=== PATIENT | female | born 1990 | race Caucasian/White ===

== ENCOUNTER 2021-05-11 14:01 | Outpatient (REF) | payer OTHER, SELFPAY ==
--- NOTE | ~2021-05-11 | XR_ITS ---
EXAMINATION: XR CHEST CLINICAL INFORMATION: Cough COMPARISON: None TECHNIQUE: 2 views of the chest were obtained. FINDINGS: No significant abnormality is noted involving the heart, lungs, mediastinum, bony thorax or soft tissues. XR/XR chest 2V IMPRESSION: Unremarkable chest examination.
[2021-05-11 18:34] LABS: Influenza A PCR NEGATIVE (Negative); Influenza B PCR NEGATIVE (Negative); Resp Syncy Virus RNA Qual PCR NEGATIVE (Negative); SARS COV2 PCR INHOUSE NEGATIVE (Negative)
== END 2021-05-11 14:02 | disposition home or self-care (01) ==
LOC: HO.HMGCX 14:01
PROVIDERS: PCP Internal Medicine; Visit Provider Nurse Practitioner Family
DX: R05 Cough (principal)
CPT/HCPCS: 0241U; 36415; 71046

== ENCOUNTER 2021-05-11 14:07 | Outpatient (REF) | payer OTHER, SELFPAY | END 2021-05-11 14:08 | disposition home or self-care (01) | LOC: HO.LAB 14:07 | PROVIDERS: Visit Provider Nurse Practitioner Family | DX: Z13.89 Encounter for screening for other disorder (principal) ==

== ENCOUNTER 2021-11-01 11:26 | Outpatient (REF) | payer OTHER, SELFPAY | END 2021-11-01 11:27 | disposition home or self-care (01) | LOC: HO.LNP 11:26 | PROVIDERS: Visit Provider Physician Assistant | DX: U07.1 COVID-19 (principal) | CPT/HCPCS: U0003; U0005 ==

== ENCOUNTER 2022-05-12 02:37 | Emergency (ER) | payer OTHER, SELFPAY ==
[2022-05-12 02:41] VITALS: BP 138/68; PULSE 108; O2SAT 99
[2022-05-12 02:50] VITALS: BP 116/74; PULSE 91; RESP 16; TEMP 36.7; O2SAT 98; BMI 28.3
--- NOTE | 2022-05-12 03:08 | ED.OVERDOSE ---
HPI - Overdose General Chief Complaint: ETOH/Substance Use Stated Complaint: OVERDOSE Time Seen by Provider: 05/12/22 03:07 Source: patient Mode of arrival: EMS Limitations: no limitations History of Present Illness HPI Narrative: patient use heroin cocaine found unresponsive by her friends medicated with 8 mg of nasal Narcan with positive effect patient used 3 bags of heroin and unknown amount of cocaine also patient had few drinks patient feel nauseated does not want any help Related Data Home Medications Medication Instructions Recorded Confirmed sennosides 8.6 mg tablet (Natural 8.6 mg PO DAILY 11/01/21 Senna Laxative) Allergies Allergy/AdvReac Type Severity Reaction Status Date / Time No Known Allergies Allergy Verified 05/12/22 02:49 Review of Systems Review of Systems: Yes all other systems are reviewed and are negative [facility] Social History Social History Alcohol intake: current Alcohol intake frequency: 0-2 drinks per day Patient Tobacco Use Status: Current everyday Tobacco user Substance Use Type: Heroin Advance Directives: No Physical Exam Vital Signs: Vital Signs: Last Vital Signs Temp 98.1 F 05/12/22 02:50 Pulse 70 05/12/22 06:31 Resp 18 05/12/22 06:31 BP 113/70 05/12/22 06:31 Pulse Ox 95 05/12/22 06:31 O2 Del Method 05/12/22 06:31 BMI result Body Mass Index 28.3 Appearance: Alert. Oriented X3. No acute distress. etoh+ Eyes: PERRLA, No Nystagmus ENT: Pharynx normal. Oral Mucosa moist Neck: Normal inspection. Neck supple. CVS: Normal heart rate and rhythm. Pulses normal. Respiratory: No respiratory distress. Equal air entry bilateral, no wheezing/rales/rhonchi Abdomen: Soft and nontender. Bowel sounds are present, no mass palpable, no CVA tenderness Skin: Skin warm and dry. Normal skin color. Normal skin turgor. Extremities: No lower extremity edema. No calf tenderness Neuro: Oriented X 3. No motor deficit. No sensory deficit.No cerebellar signs , cranial nerves II-XII intact MDM - Overdose MDM Narrative Medical decision making narrative: patient asymptomatic at the time of discharge refused any help says she does not use drugs very often Discharge Plan Discharge Clinical Impression: Opiate abuse, episodic, Cocaine abuse, Alcohol abuse Patient Disposition: Home, Self-Care Instructions: Polysubstance Abuse (ED) Additional Instructions: follow-up with detox as advised Prescriptions: No Action sennosides [Natural Senna Laxative] 8.6 mg tablet 8.6 mg PO DAILY Interventions: ED Discharge Assessment Last Done: 05/12/22 06:40
[2022-05-12] MEDS: Ondansetron ODT 4 MG TAB.RAPDIS TRANSLINGU (03:18)
[2022-05-12 04:10] VITALS: BP 117/71; PULSE 102; RESP 20; O2SAT 97
[2022-05-12 06:31] VITALS: BP 113/70; PULSE 70; RESP 18; O2SAT 95
== END 2022-05-12 08:08 | disposition home or self-care (01) ==
PROVIDERS: Emergency Provider Internal Medicine
DX: F11.10 Opioid abuse, uncomplicated (principal); F14.10 Cocaine abuse, uncomplicated; F10.10 Alcohol abuse, uncomplicated; Y90.9 Presence of alcohol in blood, level not specified; R40.4 Transient alteration of awareness; R11.0 Nausea; F17.200 Nicotine dependence, unspecified, uncomplicated
CPT/HCPCS: 99283; 99284

== ENCOUNTER 2022-12-26 15:42 | Emergency (ER) | payer OTHER, SELFPAY ==
--- NOTE | ~2022-12-26 | CT_ITS ---
EXAMINATION: CT ABDOMEN AND PELVIS WITH CONTRAST CLINICAL INFORMATION: Flank pain COMPARISON: None TECHNIQUE: Multidetector volumetric images were obtained from the superior aspect of the liver through the pubic symphysis following administration 85 mL of Omnipaque 350 intravenous contrast. Sagittal and coronal reformatted images were obtained on the technologist's workstation. Oral contrast: No This CT examination was performed using dose optimization techniques as appropriate, variously including the following: *Automated exposure control *Adjustment of mA and/or kV according to patient size (this includes techniques or standardized protocols for targeted exams where dose is matched to indication/reason for exam; i.e. extremities or head) *Use of iterative reconstruction technique DLP: 622 mGy-cm FINDINGS: LUNG BASES: The visualized lung bases are unremarkable. LIVER, GALLBLADDER, AND BILIARY TREE: The liver is normal in size, shape, and attenuation. No focal hepatic lesion or biliary ductal dilatation is present. The gallbladder is unremarkable with no evidence of radiopaque gallstones, gallbladder wall thickening, or obvious pericholecystic inflammatory changes. PANCREAS: Unremarkable. SPLEEN: Unremarkable. ADRENAL GLANDS: Unremarkable. KIDNEYS AND URETERS: 8 mm hypodense lesion posterior cortex right kidney compatible simple cyst. No follow-up necessary. No stones no hydronephrosis. No hydroureter. BLADDER: Unremarkable. GASTROINTESTINAL TRACT: The small and large bowel are unremarkable. The appendix is unremarkable. Stomach normal ABDOMINAL WALL: No significant hernia is appreciated. LYMPH NODES: Normal. VASCULAR: Unremarkable. PELVIC VISCERA: Unremarkable. OSSEOUS STRUCTURES: Bilateral pars defects at L5. Grade 1 anterolisthesis of L5 on S1. CT/CT abdomen pelvis w IV con IMPRESSION: No urinary tract calculi. No acute abnormality. Bilateral pars defects L5. Simple cyst right kidney without clinical significance. No follow-up necessary.
[2022-12-26 17:09] VITALS: BP 127/87; PULSE 79; RESP 18; TEMP 37.1; O2SAT 99; BMI 29.7
--- NOTE | 2022-12-26 17:10 | ED_ITS ---
HPI - Female Genitourinary General Chief complaint: Urogenital-Female Stated complaint: bladder infection Time Seen by Provider: 12/26/22 18:08 Related Data Home Medications Medication Instructions Recorded Confirmed sennosides 8.6 mg tablet (Natural 8.6 mg PO DAILY 11/01/21 12/26/22 Senna Laxative) Previous Rx's Medication Instructions Recorded doxycycline hyclate 100 mg capsule 100 mg PO BID 10 days #20 caps 12/26/22 metronidazole 500 mg tablet 500 mg PO BID 7 days #14 tabs 12/26/22 Allergies Allergy/AdvReac Type Severity Reaction Status Date / Time No Known Allergies Allergy Verified 12/26/22 17:15 [facility] Social History Social History Alcohol intake: current Alcohol intake frequency: 0-2 drinks per day Patient Tobacco Use Status: Current everyday Tobacco user Substance Use Type: Heroin Advance Directives: No Advance Directives Information Provided: No Physical Exam Vital Signs: Vital Signs: Last Vital Signs Temp 98.7 F 12/26/22 17:09 Pulse 79 12/26/22 17:09 Resp 18 12/26/22 17:09 BP 127/87 12/26/22 17:09 Pulse Ox 99 12/26/22 17:09 O2 Del Method 12/26/22 17:09 BMI result Body Mass Index 29.7 Course Course Course Narrative: RME - 32 yo female presents to the ER for evaluation of nausea, right sided back pain, pelvic pain and intermittent fevers for the last 2-3 weeks along with white vaginal discharge. No dysuria. Sent in from Urgent Care for concerns of pyelonpehritis. Recently treated with Macrobid for UTI in October, had resolution of symptoms but came back shortly after. Will get labs, UA, STI tests and start empiric treatment. Will need pelvic exam. Medications Administered Discontinued Medications Generic Name Dose Route Start Last Admin Trade Name Freq PRN Reason Stop Dose Admin Ceftriaxone Sodium 500 mg/ 0 mg 12/26/22 17:12 12/26/22 18:08 Lidocaine HCl 1 ml IM 12/26/22 17:13 500 kit ONCE ONE Administration Doxycycline Monohydrate 100 mg 12/26/22 17:12 12/26/22 18:08 Doxycycline Monohydrate 100 Mg Capsule PO 12/26/22 17:13 100 mg ONCE ONE Administration Iohexol 100 ml 12/26/22 19:26 12/26/22 19:26 Iohexol 350 Mg/Ml 100 Ml Infus..Btl IV 12/26/22 19:27 85 ml ONCE ONE Administration Metronidazole 2,000 mg 12/26/22 17:12 12/26/22 18:08 Metronidazole 500 Mg Tablet PO 12/26/22 17:13 2,000 mg ONCE ONE Administration Medical Decision Making Lab Data 12/26/22 17:49 12/26/22 17:49 Labs: Lab Results 12/26/22 12/26/22 12/26/22 Range/Units 17:49 17:49 17:49 WBC 7.7 (4.8-10.8) X10*3/uL RBC 3.99 L (4.20-5.50) X10*6/uL Hgb 13.0 (12.0-16.0) g/dl Hct 38.7 (37.0-47.0) % MCV 97.0 (80.0-98.0) fL MCH 32.6 (27.0-33.0) pg MCHC 33.6 (31.0-35.0) g/dl RDW 14.6 (11.0-16.0) % Plt Count 244 (160-400) X10*3/uL MPV 10.6 (9.4-12.3) fL Immature Gran % (Auto) 0.3 (0.0-0.4) % Neut % (Auto) 52.3 (45-73) % Lymph % (Auto) 37.6 (20-40) % [place] % (Auto) 5.8 (2-11) % Eos % (Auto) 2.8 (0-4) % Baso % (Auto) 1.2 (0-2) % Lymph # (Auto) 2.9 (1.2-4.9) X10*3/uL [place] # (Auto) 0.5 (0.1-1.2) X10*3/uL Eos # (Auto) 0.2 (0.0-0.4) X10*3/uL Baso # (Auto) 0.1 (0.0-0.2) X10*3/uL Abs Immat Gran (auto) 0.02 (0.00-0.03) X10*3/uL Absolute Neuts (auto) 4.1 (2.0-8.3) x10*3/uL Absolute Nucleated RBC 0.000 (0.0-0.012) X10*3/uL Nucleated RBC % (auto) 0.0 (0.0-0.2) /100WBC Sodium 137 (135-145) mmol/L Potassium 4.1 (3.3-5.1) mmol/L Chloride 106 (96-108) mmol/L Carbon Dioxide 22 (22-29) mmol/L Anion Gap 13 (12-20) BUN 18 H (9-16) mg/dL Creatinine 1.17 (0.5-1.4) mg/dL Estim Creat Clear Calc 66.8 Estimated GFR 53 Random Glucose 85 (60-115) mg/dL Calcium 9.5 (8.4-10.2) mg/dL Magnesium 1.9 (1.6-2.6) mg/dL Total Bilirubin 0.7 (0.0-1.0) mg/dL Direct Bilirubin 0.2 (0.0-0.5) mg/dL AST 29 (5-31) U/L ALT 35 H (0-31) U/L Alkaline Phosphatase 75 (39-117) U/L Total Protein 6.7 (6.5-8.0) g/dL Albumin 4.2 (3.5-5.0) g/dL Beta HCG, Quant < 2 mIU/mL Urine Color Yellow Urine Appearance Clear Urine pH 8.5 (5.0-9.0) Ur Specific [place] 1.010 (1.005-1.025) Urine Protein Negative (Neg-Trace) mg/dL Urine Glucose (UA) Negative (Negative) mg/dL Urine Ketones Negative (Negative) mg/dL Urine Blood Negative (Negative) Urine Nitrite Negative (Negative) Ur Leukocyte Esterase Small (1+) H (Negative) Urine RBC 0-2 (0-2) /HPF Urine WBC 6-10 H (0-5) /HPF Ur Squamous Epith Cells 6-10 (0-2) /HPF Urine Bacteria Trace (None Seen) Hyaline Casts 0-2 (0-2) /LPF Urine Test (NEGATIVE) Lesli species DNA (Negative) Chlam trachomat DNA PCR (Not Detect.) Gardnerella DNA Probe (Negative) N.gonorrhoeae DNA (PCR) (Not Detect.) Trichomonas DNA Probe (Negative) 12/26/22 12/26/22 12/26/22 Range/Units 17:49 19:08 19:08 WBC (4.8-10.8) X10*3/uL RBC (4.20-5.50) X10*6/uL Hgb (12.0-16.0) g/dl Hct (37.0-47.0) % MCV (80.0-98.0) fL MCH (27.0-33.0) pg MCHC (31.0-35.0) g/dl RDW (11.0-16.0) % Plt Count (160-400) X10*3/uL MPV (9.4-12.3) fL Immature Gran % (Auto) (0.0-0.4) % Neut % (Auto) (45-73) % Lymph % (Auto) (20-40) % [place] % (Auto) (2-11) % Eos % (Auto) (0-4) % Baso % (Auto) (0-2) % Lymph # (Auto) (1.2-4.9) X10*3/uL [place] # (Auto) (0.1-1.2) X10*3/uL Eos # (Auto) (0.0-0.4) X10*3/uL Baso # (Auto) (0.0-0.2) X10*3/uL Abs Immat Gran (auto) (0.00-0.03) X10*3/uL Absolute Neuts (auto) (2.0-8.3) x10*3/uL Absolute Nucleated RBC (0.0-0.012) X10*3/uL Nucleated RBC % (auto) (0.0-0.2) /100WBC Sodium (135-145) mmol/L Potassium (3.3-5.1) mmol/L Chloride (96-108) mmol/L Carbon Dioxide (22-29) mmol/L Anion Gap (12-20) BUN (9-16) mg/dL Creatinine (0.5-1.4) mg/dL Estim Creat Clear Calc Estimated GFR Random Glucose (60-115) mg/dL Calcium (8.4-10.2) mg/dL Magnesium (1.6-2.6) mg/dL Total Bilirubin (0.0-1.0) mg/dL Direct Bilirubin (0.0-0.5) mg/dL AST (5-31) U/L ALT (0-31) U/L Alkaline Phosphatase (39-117) U/L Total Protein (6.5-8.0) g/dL Albumin (3.5-5.0) g/dL Beta HCG, Quant mIU/mL Urine Color Urine Appearance Urine pH (5.0-9.0) Ur Specific [place] (1.005-1.025) Urine Protein (Neg-Trace) mg/dL Urine Glucose (UA) (Negative) mg/dL Urine Ketones (Negative) mg/dL Urine Blood (Negative) Urine Nitrite (Negative) Ur Leukocyte Esterase (Negative) Urine RBC (0-2) /HPF Urine WBC (0-5) /HPF Ur Squamous Epith Cells (0-2) /HPF Urine Bacteria (None Seen) Hyaline Casts (0-2) /LPF Urine Test NEGATIVE (NEGATIVE) Lesli species DNA Negative (Negative) Chlam trachomat DNA PCR NOT DETECTED (Not Detect.) Gardnerella DNA Probe Positive A (Negative) N.gonorrhoeae DNA (PCR) NOT DETECTED (Not Detect.) Trichomonas DNA Probe Negative (Negative) Discharge Plan Discharge Clinical Impression: Cystitis, Bacterial vaginosis, Screen for STD (sexually transmitted disease) Patient Disposition: Home, Self-Care Instructions: Bacterial Vaginosis (ED) Additional Instructions: Take your medications as prescribed. If you were prescribed antibiotics today, it is important that you take your medication to their entirety, do not skip any doses, do not finish them early. Follow-up with your primary care provider this week. Follow-up with OBGYN Return to the emergency department with new or worsening symptoms. Such as fevers, chills, chest pain, shortness of breath, nausea, vomiting, dizziness, headache, vision changes, lethargy In case of emergency call 911 CT/CT abdomen pelvis w IV con IMPRESSION: No urinary tract calculi. ? No acute abnormality. ? Bilateral pars defects L5. ? Simple cyst right kidney without clinical significance. No follow-up necessary. Prescriptions: New doxycycline hyclate 100 mg capsule 100 mg PO BID 10 Days Qty: 20 0RF metronidazole 500 mg tablet 500 mg PO BID 7 Days Qty: 14 0RF No Action sennosides [Natural Senna Laxative] 8.6 mg tablet 8.6 mg PO DAILY Referrals: Vivian Skinner MD [Primary Care Provider] - 2 days Simeon Duarte MD [Physician] - 2 days Stand Alone Forms: Work/School Release Interventions: ED Discharge Assessment Last Done: 12/26/22 21:08 Discharge Date/Time: 12/26/22 21:08
[2022-12-26 18:02] LABS: MANUAL DIFF FLAG NO
[2022-12-26 18:05] LABS: Appearance Urine Clear; Color Urine Yellow; Glucose Urine UA Negative (Negative); Leukocyte Esterase Urine Small (1+) (Negative); Nitrite Urine Negative (Negative); PH 8.5 (5.0-9.0); UMIC TRIGGER UACC YES; Urine Blood Negative (Negative); Urine Ketones Negative (Negative); Urine Protein Negative (Neg-Trace)
[2022-12-26 18:06] LABS: UPreg QC Valid YES; Urine Pregnancy NEGATIVE (NEGATIVE)
[2022-12-26] MEDS: Doxycycline Monohydrate 100 MG CAPSULE PO (18:08)
[2022-12-26] MEDS: metroNIDAZOLE 500 MG TABLET 2000 MG PO (18:08)
[2022-12-26] MEDS: cefTRIAXone sodium 500 MG, Lidocaine HCl 1 % MPF 1 ML IM (18:08)
[2022-12-26 18:10] LABS: Basophils Absolute Auto 0.1 X10*3/uL (0.0-0.2); Basophils Percent Auto 1.2 % (0-2); Eosinophils Absolute Auto 0.2 X10*3/uL (0.0-0.4); Eosinophils Percent Auto 2.8 % (0-4); Hematocrit 38.7 % (37.0-47.0); Imm Gran Abs Auto 0.02 X10*3/uL (0.00-0.03); Imm Gran Pct Auto 0.3 % (0.0-0.4); Lymphocytes Absolute Auto 2.9 X10*3/uL (1.2-4.9); Lymphocytes Percent Auto 37.6 % (20-40); Mean Corpuscular HGB Conc 33.6 g/dl (31.0-35.0); Mean Corpuscular Hemoglobin 32.6 pg (27.0-33.0); Mean Platelet Volume 10.6 fL (9.4-12.3); Monocytes Absolute Auto 0.5 X10*3/uL (0.1-1.2); Monocytes Percent Auto 5.8 % (2-11); Neutrophils Absolute Auto 4.1 x10*3/uL (2.0-8.3); Neutrophils Percent Auto 52.3 % (45-73); Platelet Count 244 X10*3/uL (160-400); Red Blood Count 3.99 X10*6/uL (4.20-5.50); Red Cell Distribution Width 14.6 % (11.0-16.0); White Blood Count 7.7 X10*3/uL (4.8-10.8)
[2022-12-26 18:14] LABS: Bacteria Urine Trace (None Seen); Hyaline Casts Urine 0-2 /LPF (0-2); RBC Urine 0-2 /HPF (0-2); UACC Culture Trigger YES
[2022-12-26 18:23] LABS: Alanine Aminotransferase 35 U/L (0-31); Albumin Level 4.2 g/dL (3.5-5.0); Alkaline Phosphatase 75 U/L (39-117); Anion Gap 13 (12-20); Aspartate Amino Transferase 29 U/L (5-31); Bilirubin Direct 0.2 mg/dL (0.0-0.5); Bilirubin Total 0.7 mg/dL (0.0-1.0); Blood Urea Nitrogen 18 mg/dL (9-16); Calcium 9.5 mg/dL (8.4-10.2); Carbon Dioxide 22 mmol/L (22-29); Chloride 106 mmol/L (96-108); Creatinine Clr Calc Pharmacy 66.8; Estimated Glomerular Filt Rate 53; Glucose Random 85 mg/dL (60-115); Magnesium 1.9 mg/dL (1.6-2.6); Potassium 4.1 mmol/L (3.3-5.1); Sodium 137 mmol/L (135-145); Total Protein 6.7 g/dL (6.5-8.0)
--- NOTE | 2022-12-26 18:44 | ED_ITS ---
HPI - Female Genitourinary General Chief complaint: Urogenital-Female Stated complaint: bladder infection Time Seen by Provider: 12/26/22 18:08 Source: patient Mode of arrival: ambulatory Limitations: no limitations History of Present Illness HPI Narrative: This is a 32-year-old female no significant medical history presenting to the emergency department from urgent care where they were concerned that she may hav e pyelonephritis. Patient tells me that she was recently treated for urinary tract infection with Macrobid at that time she was experiencing urinary frequency, urgency and dysuria. Patient also reports that she was recently diagnosed with chlamydia, she was treated only for chlamydia however not g onorrhea. She tells me she tested negative for gonorrhea she does not think that they tested her for any other STDs. She reports that she is having clear smelly vaginal discharge. This has been going on for a while. No vaginal bleeding. She reports bilateral flank pain. And tells me that she has had subjective fevers and chills for the past 2-3 weeks. She does not think she is . Related Data Home Medications Medication Instructions Recorded Confirmed sennosides 8.6 mg tablet (Natural 8.6 mg PO DAILY 11/01/21 12/26/22 Senna Laxative) Previous Rx's Medication Instructions Recorded doxycycline hyclate 100 mg capsule 100 mg PO BID 10 days #20 caps 12/26/22 metronidazole 500 mg tablet 500 mg PO BID 7 days #14 tabs 12/26/22 Allergies Allergy/AdvReac Type Severity Reaction Status Date / Time No Known Allergies Allergy Verified 12/26/22 17:15 Review of Systems Review of Systems: Constitutional : No Weight loss, + Fever, + Chills, + Fatigue, + Malaise ENT/Mouth : No sore throat, No Rhinorrhea Eyes: No Eye Pain, No Swelling, No Redness Cardiovascular : No Chest Pain, No SOB, No Dyspnea on Exertion, No Orthopnea, No Edema, No Palpitations Respiratory : No Cough, No Sputum, No Wheezing Gastrointestinal : No Nausea, No Vomiting, No Diarrhea, No Constipation, No abdominal Pain, No Hematochezia, No Melena Genitourinary : No Dysuria, No Urinary Frequency, No Hematuria, + vaginal dc Musculoskeletal : No joint pain, No Myalgias, No Joint Swelling, + flank pain Skin : No Skin Lesions, No rash Neuro : No Weakness, No Numbness, No Dizziness, No Headache Psych : No Anxiety/Panic, No Depression All other systems reviewed and are negative Yes all other systems are reviewed and are negative [facility] Past Medical History Attestation statement: The following information was validated with the patient. Source: old records reviewed and nursing notes reviewed Social History Social History Alcohol intake: current Alcohol intake frequency: 0-2 drinks per day Patient Tobacco Use Status: Current everyday Tobacco user Substance Use Type: Heroin Advance Directives: No Advance Directives Information Provided: No Physical Exam Vital Signs: Vital Signs: Last Vital Signs Temp 98.7 F 12/26/22 17:09 Pulse 79 12/26/22 17:09 Resp 18 12/26/22 17:09 BP 127/87 12/26/22 17:09 Pulse Ox 99 12/26/22 17:09 O2 Del Method 12/26/22 17:09 BMI result Body Mass Index 29.7 vss Appearance: Alert.? Oriented X3.? No acute distress.? Head: Normocephalic, atraumatic, no step-offs or deformities Eyes: Pupils equal, round and reactive to light.? CVS: Normal heart rate and rhythm.? Pulses normal.? Respiratory: No respiratory distress.? Breath sounds normal.? Abdomen: Soft and nontender.? Skin: Skin warm and dry.? Normal skin color.? Normal skin turgor.? Extremities: No lower extremity edema.? No calf ttp. 5/5 strength to bilateral upper and lower extremities Back: No midline tenderness, no C-spine tenderness, full range of motion, + CVA tenderness bilaterally Neuro: Oriented X 3.? No motor deficit.? No sensory deficit. CN 2-12 intact Sensitive exam: Deferred by patient Course Reevaluation(s) Reevaluation #1: CBC appears to be within normal limits. Chemistry with no acute electrolyte abnormalities requiring intervention. UA with small amount of leukocyte esterase and trace bacteria. Patient received treatment for STDs and tolerated it well. CT of the abdomen and pelvis pending. Time: 18:49 Reevaluation #2: CT of the abdomen and pelvis with no urinary tract calculi, no acute abnormality there is a pars defect of L5. Simple cyst of the right kidney. No signs of pyelonephritis. Patient feeling well. Patient will be discharged home on doxycycline and metronidazole to cover for BV, Trichomonas and chlamydia. BV still pending. Educated patient on diagnosis and treatment plan, answered all question, patient verbalizes understanding. At this time patient will be discharged home, advised to return with new or worsening symptoms. Educated on worrisome signs and symptoms and when to return. At this time I feel comfortable discharge home. Time: 21:03 Medications Administered Discontinued Medications Generic Name Dose Route Start Last Admin Trade Name Chrissy PRN Reason Stop Dose Admin Ceftriaxone Sodium 500 mg/ 0 mg 12/26/22 17:12 12/26/22 18:08 Lidocaine HCl 1 ml IM 12/26/22 17:13 500 kit ONCE ONE Administration Doxycycline Monohydrate 100 mg 12/26/22 17:12 12/26/22 18:08 Doxycycline Monohydrate 100 Mg Capsule PO 12/26/22 17:13 100 mg ONCE ONE Administration Iohexol 100 ml 12/26/22 19:26 12/26/22 19:26 Iohexol 350 Mg/Ml 100 Ml Infus..Btl IV 12/26/22 19:27 85 ml ONCE ONE Administration Metronidazole 2,000 mg 12/26/22 17:12 12/26/22 18:08 Metronidazole 500 Mg Tablet PO 12/26/22 17:13 2,000 mg ONCE ONE Administration Medical Decision Making Medical Decision Making [facility] Narrative: 1846 32-year-old female presents with vaginal discharge, and urinary frequency and d ysuria times 2-3 weeks. Recently diagnosed with UTI treated with Macrobid and was recently treated for chlamydia. Physical exam significant for bilateral CVA tenderness. No abdominal tenderness. Patient appears well, nontoxic. Vital signs are stable. Concerns for possible UTI versus cystitis. I do not suspect pyelonephritis patient appears well, nontoxic however will rule this out. Will rule out infection. Also rule out Trichomonas, BV, gonorrhea chlamydia. Patient agrees to prophylactic treatment for gonorrhea, chlamydia and trichomonas. 500mg IM ceftriaxone has been given here and scripts for doxycycline 100 mg po BID X 7 days and metronidazolehave been given to the patient. Educated on safe sex practices, full pannel STD testing and speaking to? partners on possible STD. Plan at this time basic labs, Trichomonas, gonorrhea, BV chlamydia testing, UA, . Will obtain CT of the abdomen and pelvis Differential Diagnosis Differential Diagnoses: The differential diagnosis associated with the presentation includes Concerns for possible UTI versus cystitis. I do not suspect pyelonephritis patient appears well, nontoxic however will rule this out. Will rule out infection. Also rule out Trichomonas, BV, gonorrhea chlamydia. Admission/Observation Consideration of admission/observation: Escalation of care including admission/observation considered Lab Data MDM Lab Attestation statement: I reviewed the patient's lab results. 12/26/22 17:49 12/26/22 17:49 Labs: Lab Results 12/26/22 12/26/22 12/26/22 Range/Units 17:49 17:49 17:49 WBC 7.7 (4.8-10.8) X10*3/uL RBC 3.99 L (4.20-5.50) X10*6/uL Hgb 13.0 (12.0-16.0) g/dl Hct 38.7 (37.0-47.0) % MCV 97.0 (80.0-98.0) fL MCH 32.6 (27.0-33.0) pg MCHC 33.6 (31.0-35.0) g/dl RDW 14.6 (11.0-16.0) % Plt Count 244 (160-400) X10*3/uL MPV 10.6 (9.4-12.3) fL Immature Gran % (Auto) 0.3 (0.0-0.4) % Neut % (Auto) 52.3 (45-73) % Lymph % (Auto) 37.6 (20-40) % [place] % (Auto) 5.8 (2-11) % Eos % (Auto) 2.8 (0-4) % Baso % (Auto) 1.2 (0-2) % Lymph # (Auto) 2.9 (1.2-4.9) X10*3/uL [place] # (Auto) 0.5 (0.1-1.2) X10*3/uL Eos # (Auto) 0.2 (0.0-0.4) X10*3/uL Baso # (Auto) 0.1 (0.0-0.2) X10*3/uL Abs Immat Gran (auto) 0.02 (0.00-0.03) X10*3/uL Absolute Neuts (auto) 4.1 (2.0-8.3) x10*3/uL Absolute Nucleated RBC 0.000 (0.0-0.012) X10*3/uL Nucleated RBC % (auto) 0.0 (0.0-0.2) /100WBC Sodium 137 (135-145) mmol/L Potassium 4.1 (3.3-5.1) mmol/L Chloride 106 (96-108) mmol/L Carbon Dioxide 22 (22-29) mmol/L Anion Gap 13 (12-20) BUN 18 H (9-16) mg/dL Creatinine 1.17 (0.5-1.4) mg/dL Estim Creat Clear Calc 66.8 Estimated GFR 53 Random Glucose 85 (60-115) mg/dL Calcium 9.5 (8.4-10.2) mg/dL Magnesium 1.9 (1.6-2.6) mg/dL Total Bilirubin 0.7 (0.0-1.0) mg/dL Direct Bilirubin 0.2 (0.0-0.5) mg/dL AST 29 (5-31) U/L ALT 35 H (0-31) U/L Alkaline Phosphatase 75 (39-117) U/L Total Protein 6.7 (6.5-8.0) g/dL Albumin 4.2 (3.5-5.0) g/dL Beta HCG, Quant < 2 mIU/mL Urine Color Yellow Urine Appearance Clear Urine pH 8.5 (5.0-9.0) Ur Specific [place] 1.010 (1.005-1.025) Urine Protein Negative (Neg-Trace) mg/dL Urine Glucose (UA) Negative (Negative) mg/dL Urine Ketones Negative (Negative) mg/dL Urine Blood Negative (Negative) Urine Nitrite Negative (Negative) Ur Leukocyte Esterase Small (1+) H (Negative) Urine RBC 0-2 (0-2) /HPF Urine WBC 6-10 H (0-5) /HPF Ur Squamous Epith Cells 6-10 (0-2) /HPF Urine Bacteria Trace (None Seen) Hyaline Casts 0-2 (0-2) /LPF Urine Test (NEGATIVE) 12/26/22 Range/Units 17:49 WBC (4.8-10.8) X10*3/uL RBC (4.20-5.50) X10*6/uL Hgb (12.0-16.0) g/dl Hct (37.0-47.0) % MCV (80.0-98.0) fL MCH (27.0-33.0) pg MCHC (31.0-35.0) g/dl RDW (11.0-16.0) % Plt Count (160-400) X10*3/uL MPV (9.4-12.3) fL Immature Gran % (Auto) (0.0-0.4) % Neut % (Auto) (45-73) % Lymph % (Auto) (20-40) % [place] % (Auto) (2-11) % Eos % (Auto) (0-4) % Baso % (Auto) (0-2) % Lymph # (Auto) (1.2-4.9) X10*3/uL [place] # (Auto) (0.1-1.2) X10*3/uL Eos # (Auto) (0.0-0.4) X10*3/uL Baso # (Auto) (0.0-0.2) X10*3/uL Abs Immat Gran (auto) (0.00-0.03) X10*3/uL Absolute Neuts (auto) (2.0-8.3) x10*3/uL Absolute Nucleated RBC (0.0-0.012) X10*3/uL Nucleated RBC % (auto) (0.0-0.2) /100WBC Sodium (135-145) mmol/L Potassium (3.3-5.1) mmol/L Chloride (96-108) mmol/L Carbon Dioxide (22-29) mmol/L Anion Gap (12-20) BUN (9-16) mg/dL Creatinine (0.5-1.4) mg/dL Estim Creat Clear Calc Estimated GFR Random Glucose (60-115) mg/dL Calcium (8.4-10.2) mg/dL Magnesium (1.6-2.6) mg/dL Total Bilirubin (0.0-1.0) mg/dL Direct Bilirubin (0.0-0.5) mg/dL AST (5-31) U/L ALT (0-31) U/L Alkaline Phosphatase (39-117) U/L Total Protein (6.5-8.0) g/dL Albumin (3.5-5.0) g/dL Beta HCG, Quant mIU/mL Urine Color Urine Appearance Urine pH (5.0-9.0) Ur Specific [place] (1.005-1.025) Urine Protein (Neg-Trace) mg/dL Urine Glucose (UA) (Negative) mg/dL Urine Ketones (Negative) mg/dL Urine Blood (Negative) Urine Nitrite (Negative) Ur Leukocyte Esterase (Negative) Urine RBC (0-2) /HPF Urine WBC (0-5) /HPF Ur Squamous Epith Cells (0-2) /HPF Urine Bacteria (None Seen) Hyaline Casts (0-2) /LPF Urine Test NEGATIVE (NEGATIVE) Radiology Impression Discussion of test interpretation with radiology: I have reviewed the radiologist's reading. Core Measures AMI core measures followed: Yes Measure exclusions: not indicated Critical Care Time Critical Care Time Critical Care Time: No Discharge Plan Discharge Clinical Impression: Cystitis, Bacterial vaginosis, Screen for STD (sexually transmitted disease) Patient Disposition: Home, Self-Care Additional Instructions: Take your medications as prescribed. If you were prescribed antibiotics today, it is important that you take your medication to their entirety, do not skip any doses, do not finish them early. Follow-up with your primary care provider this week. Follow-up with OBGYN Return to the emergency department with new or worsening symptoms. Such as fevers, chills, chest pain, shortness of breath, nausea, vomiting, dizziness, headache, vision changes, lethargy In case of emergency call 911 CT/CT abdomen pelvis w IV con IMPRESSION: No urinary tract calculi. ? No acute abnormality. ? Bilateral pars defects L5. ? Simple cyst right kidney without clinical significance. No follow-up necessary. Prescriptions: New doxycycline hyclate 100 mg capsule 100 mg PO BID 10 Days Qty: 20 0RF metronidazole 500 mg tablet 500 mg PO BID 7 Days Qty: 14 0RF No Action sennosides [Natural Senna Laxative] 8.6 mg tablet 8.6 mg PO DAILY Referrals: Vivian Skinner MD [Primary Care Provider] - 2 days Simeon Duarte MD [Physician] - 2 days Stand Alone Forms: Work/School Release
[2022-12-26 19:02] LABS: HCG Quantitative < 2 mIU/mL
[2022-12-26] MEDS: iohexoL 350 MG/ML 100 ML INFUS..BTL IV (19:26)
[2022-12-26 21:53] LABS: CT PCR NOT DETECTED (Not Detect.); NG PCR NOT DETECTED (Not Detect.)
[2022-12-27 11:21] LABS: BV Int Neg Control Negative (Negative); BV Int Pos Control Positive (Positive)
== END 2022-12-26 21:08 | disposition home or self-care (01) ==
PROVIDERS: Physician Assistant; Emergency Provider Internal Medicine; PCP Internal Medicine
DX: R10.9 Unspecified abdominal pain (principal); N30.90 Cystitis, unspecified without hematuria; B96.20 Unspecified Escherichia coli [E. coli] as the cause of diseases classified elsewhere; N76.0 Acute vaginitis; Z20.2 Contact with and (suspected) exposure to infections with a predominantly sexual mode of transmission; N28.1 Cyst of kidney, acquired; F17.200 Nicotine dependence, unspecified, uncomplicated
CPT/HCPCS: 0353U; 36415; 74177; 80048; 80076; 81001; 81025; 83735; 84702; 85025; 87086; 87088; 87186; 87480; 87510; 87660; 96372; 99282; 99284; J0696; Q9967

== ENCOUNTER 2023-04-24 13:21 | Outpatient (REF) | payer OTHER, SELFPAY ==
--- NOTE | ~2023-04-24 | XR_ITS ---
EXAMINATION: XR CHEST CLINICAL INFORMATION: Acute upper respiratory infection, unspecified COMPARISON: Chest 05/11/2021 TECHNIQUE: 2 views of the chest were obtained. FINDINGS: The lungs are well expanded. Patchy opacity is seen in the left lower lobe consistent with pneumonia. No pleural effusion. Biapical pleural thickening is again noted No significant abnormality is noted involving the heart, mediastinum, bony thorax or soft tissues. XR/XR chest 2V IMPRESSION: Left lower lobe pneumonia.
== END 2023-04-24 13:22 | disposition home or self-care (01) ==
LOC: HO.HMGCX 13:21
PROVIDERS: PCP Internal Medicine; Visit Provider Internal Medicine
DX: J06.9 Acute upper respiratory infection, unspecified (principal)
CPT/HCPCS: 71046

== ENCOUNTER 2023-08-16 06:38 | Inpatient (IN) | payer OTHER, SELFPAY ==
[2023-08-16] VITALS (27 sets, daily range): BP systolic 93–156; BP diastolic 29–98; PULSE 121–168; RESP 16–29; TEMP 34.2–38.9; O2SAT 92–100; BMI 29.0; BMI 25.7
--- NOTE | 2023-08-16 | ECG_ITS ---
Test Reason : TACHYCARDIA Blood Pressure : / mmHG Vent. Rate : 160 BPM Atrial Rate : 160 BPM P-R Int : 118 ms QRS Dur : 062 ms QT Int : 238 ms P-R-T Axes : 051 063 022 degrees QTc Int : 388 ms Sinus tachycardia Otherwise normal ECG When compared with ECG of 18-JUL-2012 04:30, T wave inversion less evident in Inferior leads Nonspecific T wave abnormality no longer evident in Lateral leads Heart rate has increased Referred By: Generic ED Physician Electronically Signed By:CATHIE ELIZABETH
--- NOTE | ~2023-08-16 | CT_ITS ---
EXAMINATION: CT CHEST, ABDOMEN AND PELVIS WITHOUT CONTRAST CLINICAL INFORMATION: Pneumonia. Abdominal infection COMPARISON: Chest radiograph 04/24/2023, CT chest 02/06/2013 TECHNIQUE: Multidetector volumetric imaging was performed from the thoracic inlet through the pubic symphysis without IV contrast. Sagittal and coronal reformatted images were obtained on the technologist's workstation. Marked motion artifact limits diagnostic utility. This CT examination was performed using dose optimization techniques as appropriate, variously including the following: *Automated exposure control *Adjustment of mA and/or kV according to patient size (this includes techniques or standardized protocols for targeted exams where dose is matched to indication/reason for exam; i.e. extremities or head) *Use of iterative reconstruction technique DLP: 810 mGy-cm FINDINGS: CHEST: Lung: Extensive infiltrate is seen involving most of the left lung. Some minimal atelectasis/infiltrate is present at the right lung base. No suspicious lung masses are seen. Of note, an ET tube is present in the right mainstem bronchus but can be seen to have been pulled back on a chest x-ray performed at 8:35 AM (the CT scan was performed at 7:44 AM). Mediastinum: The mediastinum is unremarkable. The central vascular structures are unremarkable. No hilar or mediastinal lymphadenopathy. Pericardium/Pleura: No significant effusion. No pleural mass or thickening. Chest Wall/Axilla: Unremarkable ABDOMEN/PELVIS: Peritoneal Space: No significant free air or free fluid identified. Liver, Gallbladder, Biliary Tree: The liver is normal in size, shape, and attenuation. No focal hepatic lesion or biliary ductal dilatation is present. The gallbladder is unremarkable with no evidence of radiopaque gallstones, gallbladder wall thickening, or obvious pericholecystic inflammatory changes. Pancreas: Unremarkable Spleen: Unremarkable Adrenal Glands: Unremarkable Kidneys and Ureters: The kidneys are normal in size, shape, and attenuation. No hydronephrosis, hydroureter, or calculi seen. No perinephric stranding. Bladder: Unremarkable Gastrointestinal Tract: The small and large bowel are unremarkable. The appendix is unremarkable. Abdominal Wall: No significant hernia is appreciated. Lymph Nodes: No lymphadenopathy. Vascular: The aorta appears normal.. The IVC appears unremarkable. PELVIC VISCERA: The uterus and adnexa are unremarkable. OSSEUS STRUCTURES: Minimal degenerative changes are noted in the spine. No bony destructive lesions are seen. CT/CT abdomen pelvis wo IV con IMPRESSION: 1. Extensive left-sided pneumonia. 2. ET tube in right mainstem bronchus which appears to have been pulled back as seen on a subsequent chest radiograph. 3. No significant abnormality is seen in the abdomen or pelvis. Fleischner guidelines were followed.
--- NOTE | ~2023-08-16 | CT_ITS ---
EXAMINATION: CT ABDOMEN AND PELVIS WITH CONTRAST CLINICAL INFORMATION: Fever COMPARISON: None available. TECHNIQUE: Multidetector volumetric images were obtained from the superior aspect of the liver through the pubic symphysis following administration 85 mL of Omnipaque 350 intravenous contrast. Sagittal and coronal reformatted images were obtained on the technologist's workstation. Oral contrast: No This CT examination was performed using dose optimization techniques as appropriate, variously including the following: *Automated exposure control *Adjustment of mA and/or kV according to patient size (this includes techniques or standardized protocols for targeted exams where dose is matched to indication/reason for exam; i.e. extremities or head) *Use of iterative reconstruction technique DLP: 638 mGy-cm FINDINGS: LUNG BASES: Bibasilar minor airspace disease favoring discoid atelectasis scarring. LIVER, GALLBLADDER, AND BILIARY TREE: Nonspecific hepatomegaly. No focal lesion or biliary ductal dilatation. The gallbladder is unremarkable with no evidence of radiopaque gallstones, gallbladder wall thickening, or obvious pericholecystic inflammatory changes. PANCREAS: Unremarkable. SPLEEN: Unremarkable. ADRENAL GLANDS: Unremarkable. KIDNEYS AND URETERS: The kidneys are normal in size, shape, and attenuation. No hydronephrosis, hydroureter, or calculi seen. No perinephric stranding. BLADDER: Unremarkable. GASTROINTESTINAL TRACT: The small and large bowel are unremarkable. The appendix is unremarkable. ABDOMINAL WALL: No significant hernia is appreciated. LYMPH NODES: Normal. VASCULAR: Unremarkable. PELVIC VISCERA: Unremarkable. OSSEOUS STRUCTURES: Unremarkable. As we dependent edema accounting for subcutaneous infiltration both lateral buttock region. No fluid collection. CT/CT abdomen pelvis w IV con IMPRESSION: No discrete abnormality to explain patient's symptoms. Nonspecific hepatomegaly. Fleischner guidelines were followed.
--- NOTE | ~2023-08-16 | US_ITS ---
EXAMINATION: US VENOUS WITH DOPPLER UPPER EXTREMITY, LEFT CLINICAL INFORMATION: Question DVT COMPARISON: Ultrasound venous Doppler upper extremity left from 08/17/2023 TECHNIQUE: Ultrasound of the upper extremity is performed using compression sonography and color and pulse Doppler flow with assessment of augmentation of flow. There is also imaging and Doppler assessment of the jugular and subclavian veins. Spectral analysis with color-flow imaging is performed. FINDINGS: Antecubital fossa incompletely evaluated secondary to overlying wound VAC and dressing. Respiratory variation, normal compression, and augmented flow are noted throughout the upper extremity including the axillary, brachial, cubital, and radial and ulnar veins. There is normal flow in the internal jugular and subclavian veins. Previously visualized thrombus involving the distal cephalic vein is no longer appreciated. There is no visible deep or superficial thrombophlebitis. If the patient's symptoms progress, a followup ultrasound in 5 -7 days might be of value to exclude proximal propagation from a nonvisualized distal arm vein. US/US venous duplex UE LT IMPRESSION: 1. No DVT demonstrated in the left upper extremity. 2. Antecubital fossa incompletely evaluated secondary to overlying wound VAC and dressing. 3. Previously visualized thrombus involving the distal cephalic vein is no longer appreciated.
--- NOTE | ~2023-08-16 | NM_ITS ---
EXAMINATION: NM RADIONUCLIDE WHITE BLOOD CELL STUDY CLINICAL INFORMATION: Intermittent fever. History of left forearm fasciotomy wound with wound VAC in place. COMPARISON: CT of the abdomen and pelvis done on 09/01/2023. TECHNIQUE: Multiple gamma scintillation camera images of the whole body were performed 2.0 hours following the intravenous administration of 15 mCi Tc-99m Ceretec labeled autologous white cells. Additional images of the chest and abdomen were obtained to demonstrate physiological white blood cell tagging. The radiotracer was injected through right antecubital superficial vein. FINDINGS: No abnormal tracer avid disease is identified. Physiologic radiotracer activity is seen within the bone marrow, the lung, the liver and spleen as well as the kidneys and the bladder. NM/NM white blood scan IMPRESSION: No abnormal radiotracer activity to suspect infection. Whole-body PET CT study may be considered for further clarification, if clinically appropriate.
--- NOTE | ~2023-08-16 | CT_ITS ---
EXAMINATION: CT HEAD WITHOUT CONTRAST CLINICAL INFORMATION: New onset seizure COMPARISON: None available. Comparison to previous report from 12/31/2009 TECHNIQUE: Contiguous axial imaging was performed from the skull base to vertex without intravenous administration of contrast. This CT examination was performed using dose optimization techniques as appropriate, variously including the following: *Automated exposure control *Adjustment of mA and/or kV according to patient size (this includes techniques or standardized protocols for targeted exams where dose is matched to indication/reason for exam; i.e. extremities or head) *Use of iterative reconstruction technique DLP: 639 mGy-cm FINDINGS: There is no midline shift. There is no mass effect. There is no hemorrhage. The basal cisterns appear patent. The posterior fossa is grossly within normal limits. No extra-axial collection. Decreased attenuation in the medial aspect of the basal ganglia on the right and in the medial aspect versus the basal ganglia posterior limb internal capsule on the left. These may be consistent with foci of nonacute infarct. Differential would include prominent perivascular spaces. Otherwise the armas-white matter grossly unremarkable. Review of the bone windows demonstrates sinus disease in the right maxillary sinus. CT/CT head/brain wo IV con IMPRESSION: No acute midline shift, mass effect or hemorrhage. 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 Given the history recommendation is MRI for full evaluation.
--- NOTE | ~2023-08-16 | US_ITS ---
EXAMINATION: US VENOUS ULTRASOUND WITH DOPPLER LOWER EXTREMITY, RIGHT CLINICAL INFORMATION: Swelling evaluate for clot COMPARISON: None available. TECHNIQUE: Ultrasound of the deep veins is performed from the hip to the calf with compression sonography and color and pulse Doppler assessment. Spectral analysis with color-flow imaging is performed. FINDINGS: There is normal venous compression and respiratory variation and augmented flow. The visualized common femoral vein, superficial femoral vein, profunda femoral vein, popliteal vein, and the trifurcation region shows no evidence of deep venous thrombosis. There is no significant popliteal fossa cyst. Left common femoral vein is patent. If the patient's symptoms persist, followup ultrasound in 5 days 7 days might be of value to exclude proximal propagation from a non-visualized calf vein. US/US venous duplex LE RT IMPRESSION: No DVT demonstrated in the right lower extremity.
--- NOTE | ~2023-08-16 | XR_ITS ---
EXAMINATION: XR CHEST CLINICAL INFORMATION: ET and NG tube position COMPARISON: CT scan chest, abdomen and pelvis performed less than one hour ago TECHNIQUE: Frontal view of the chest was obtained. FINDINGS: Since the prior CT scan, the ET tube has been retracted and is now in good position about 4.3 cm above the frank. An NG tube has its tip in the gastric fundus. Heart size probably within normal limits given technique. Left lower lobe infiltrate is seen, which appears improved when compared to the CT scan performed under an hour ago, most likely because of repositioning of the ET tube which had been in the right mainstem bronchus. XR/XR chest 1V IMPRESSION: ET tube in good position. NG tube in good position. Left lower lobe infiltrate.
[2023-08-16] MEDS: methylPREDNISolone Sod Succ 125 MG/2 ML VIAL IVPUSH (06:49)
[2023-08-16] MEDS: Famotidine/PF 20 MG/2 ML VIAL IVPUSH (06:50)
[2023-08-16] MEDS: diphenhydrAMINE HCL 50 MG/ML VIAL IVPUSH (06:50)
[2023-08-16] MEDS: 0.9 % Sodium Chloride 1,000 ML 999 ML IVCONT (06:51)
--- NOTE | 2023-08-16 06:52 | PC.NURSE ---
Pt presented to ED via EMS from home after family found pt unresponsive and contracted. Pt has a hx of drug abuse, and per EMS overdosed this past weekend. EMS started a 20g IV in the right hand and gave 3mg of versed with some effectiveness. Pt pupils are fixed, and she is groaning. Pt is not responding or following commands. Pt has a rash on her left AC region, left ankle, and left side of her neck. There appears to be blisters/burn celestin on the left elbow. Dr Duffy at bedside ordered fluids and medications documented in JAN. EKG obtained.
--- NOTE | 2023-08-16 06:59 | ED.AMS ---
HPI - Altered Mental Status General Chief Complaint: Altered Mental Status Stated Complaint: seizure Time Seen by Provider: 08/16/23 06:45 Source: EMS Mode of arrival: EMS Limitations: altered mental status History of Present Illness HPI narrative: Patient comes to the emergency room via EMS. According to EMS, patient was found confused, questionably just had a seizure. Patient known to have history of IV drug use, recently overdosed 5 days ago. Patient has no history of seizures. Bring to EMS, they found her posturing, they gave her 3 mg of IV Versed. When patient arrived to emergency room, patient breathing on her own, altered, pinpoint pupils, seems postictal. Patient unable to give any history. Related Data Previous Rx's Medication Instructions Recorded albuterol sulfate 90 mcg/actuation 1 inh inhalation QID PRN shortness 04/24/23 aerosol inhaler (Ventolin HFA) of breath or wheezing #8.5 grams prednisone 20 mg tablet 60 mg (3 x 20 mg) PO DAILY #9 tabs 04/24/23 azithromycin 250 mg tablet See Rx Instructions PO .COMPLEX #6 04/26/23 tabs Allergies Allergy/AdvReac Type Severity Reaction Status Date / Time No Known Allergies Allergy Verified 04/24/23 13:48 Review of Systems Review of Systems: Yes Unobtainable due to mental status PMFSH Past Medical History Medical History (Updated 08/16/23 @ 07:06 by Wendy Duffy MD) Substance abuse Social History Social History Alcohol intake: current Alcohol intake frequency: 0-2 drinks per day Patient Tobacco Use Status: Current everyday Tobacco user Substance Use Type: Heroin Physical Exam ED Vital Signs: Vital Signs - 24 hr 08/16/23 06:56 Temperature 102.0 F H Pulse Rate 168 H Respiratory Rate 22 H Pulse Oximetry 92 Oxygen Delivery Method Room Air BMI result Body Mass Index 29.0 Const Other: Appearance: Alert. Seems postictal, unable to answer any history Eyes: Pupils equal pinpoint pupils,, round and reactive to light. ENT: Pharynx normal. Neck: Normal inspection. Neck supple. No lymph nodes noted. No crepitus CVS: Sinus, tachycardia Pulses normal. Normal S1 and S2 Respiratory: Tachypnea, respiratory rate in the 40s Abdomen: Soft and nontender. No rigidity. No distention. Skin: Patient has hives in the lower extremities, left arm and leg. Extremities: Patient spontaneously moving extremities, not following commands Neuro: Unable to participate in cranial nerve assessment Psych: Altered Course Course Course Narrative: -I was informed by the patient's nurse at rectal temperature is 102 degrees. Patient is receiving IV fluids, Zosyn, ceftriaxone, Keppra. For the possible allergic reaction, likely secondary to Versed which was given in route to the emergency room, patient received famotidine, Solu-Medrol, diphenhydramine. -all of patient's labs and imaging pending. Is possible the patient may need sedation for a head CT which needs to be done as soon as possible. -with history of altered mental status, fever, patient may need a lumbar puncture. -as mentioned above, patient has been treated empirically with IV fluids and antibiotics. -current vitals, heart rate 168, respirations 20, temperature 102.0 degrees rectal, oxygen saturation 92% on room air. -sign-out given to Dr. Rodriguez Medications Administered Generic Name Dose Route Start Last Admin Trade Name Freq PRN Reason Stop Dose Admin Sodium Chloride 1,000 mls @ 999 mls/hr 08/16/23 06:46 08/16/23 06:51 Ns IVCONT 08/16/23 07:46 999 mls/hr .Q1H1M ONE Administration Discontinued Medications Generic Name Dose Route Start Last Admin Trade Name Freq PRN Reason Stop Dose Admin Diphenhydramine HCl 50 mg 08/16/23 06:45 08/16/23 06:50 Diphenhydramine Hcl 50 Mg/Ml Vial IVPUSH 08/16/23 06:46 50 mg ONCE ONE Administration Famotidine 20 mg 08/16/23 06:45 08/16/23 06:50 Famotidine/Pf 20 Mg/2 Ml Vial IVPUSH 08/16/23 06:46 20 mg ONCE ONE Administration Methylprednisolone Sodium Succinate 125 mg 08/16/23 06:45 08/16/23 06:49 Methylprednisolone Sod Succ 125 Mg/2 Ml Vial IVPUSH 08/16/23 06:46 125 mg ONCE ONE Administration Discharge Plan Discharge Clinical Impression: Altered mental status, Fever Patient Disposition: Still a Patient Prescriptions: No Action prednisone 20 mg tablet 60 mg PO DAILY Qty: 9 0RF albuterol sulfate [Ventolin HFA] 90 mcg/actuation HFA aerosol inhaler 1 inh inhalation QID PRN (Reason: shortness of breath or wheezing) Qty: 8.5 1RF azithromycin 250 mg tablet See Rx Instructions PO .COMPLEX Qty: 6 0RF Rx Instructions: take 500 mg today (day 1), then 250 mg for 4 days (days 2-5) PO
[2023-08-16 07:12] LABS: MANUAL DIFF FLAG NO
[2023-08-16] MEDS: 0.9 % Sodium Chloride 2,449.41 ML 2449.41 ML IV (07:15)
[2023-08-16 07:19] LABS: Basophils Percent Auto 0.2 % (0-2); Hematocrit 48.3 % (37.0-47.0); Imm Gran Abs Auto 0.19 X10*3/uL (0.00-0.03); Imm Gran Pct Auto 1.4 % (0.0-0.4); Lymphocytes Absolute Auto 2.1 X10*3/uL (1.2-4.9); Mean Corpuscular HGB Conc 33.1 g/dl (31.0-35.0); Mean Corpuscular Hemoglobin 31.9 pg (27.0-33.0); Mean Corpuscular Volume 96.2 fL (80.0-98.0); Mean Platelet Volume 10.7 fL (9.4-12.3); Monocytes Percent Auto 7.1 % (2-11); NRBC Pct Auto 0.1 /100WBC (0.0-0.2); Neutrophils Absolute Auto 10.5 x10*3/uL (2.0-8.3); Neutrophils Percent Auto 76.3 % (45-73); Platelet Count 373 X10*3/uL (160-400); Red Blood Count 5.02 X10*6/uL (4.20-5.50); White Blood Count 13.7 X10*3/uL (4.8-10.8)
[2023-08-16] MEDS: propofoL 1,000 MG/100 ML VIAL 14.7 MG IVCONT ×3 (07:25→23:14)
[2023-08-16 07:28] LABS: Glucose, Whole Blood 123 mg/dL (60-115)
[2023-08-16 07:31] LABS: Ethanol < 10 mg/dL
[2023-08-16 07:35] LABS: Alanine Aminotransferase 114 U/L (0-31); Albumin Level 4.8 g/dL (3.5-5.0); Alkaline Phosphatase 75 U/L (39-117); Anion Gap 21 (12-20); Aspartate Amino Transferase 344 U/L (5-31); Bilirubin Direct 0.2 mg/dL (0.0-0.5); Bilirubin Total 0.4 mg/dL (0.0-1.0); Blood Urea Nitrogen 30 mg/dL (9-16); Calcium 9.6 mg/dL (8.4-10.2); Carbon Dioxide 18 mmol/L (22-29); Chloride 106 mmol/L (96-108); Estimated Glomerular Filt Rate 27; Glucose Random 119 mg/dL (60-115); Lipase 24 U/L (8-78); Potassium 5.7 mmol/L (3.3-5.1); Sodium 139 mmol/L (135-145); Total Protein 8.2 g/dL (6.5-8.0)
[2023-08-16] MEDS: cefTRIAXone sodium 2 GM in 0.9 % Sodium Chloride 50 ML IV (07:39)
[2023-08-16 07:41] LABS: Troponin-I High Sensitivity 346.8 ng/L (<3.5-17.0)
[2023-08-16 07:42] LABS: Lactic Acid 4.3 mmol/L (0.5-2.0)
[2023-08-16] MEDS: Midazolam HCl/PF 2 MG/2 ML VIAL IVPUSH ×2 (08:02→12:21)
[2023-08-16] MEDS: Acetaminophen Supp 650 MG SUPP.RECT PR (08:02)
--- NOTE | 2023-08-16 08:06 | PC.NURSE ---
DR Rodriguez performed LP, also inserted NG tube, difficulty insertion of OG tube
[2023-08-16 08:27] LABS: ABG Base Excess -9.1 mmol/L; ABG HCO3 14 mmol/L (22-26); ABG pCO2 23 mmHg (32-45); ABG pH 7.37 (7.35-7.45); ABG pO2 199 mmHg (83-108)
[2023-08-16 08:33] LABS: Appearance Urine Cloudy; Color Urine Dark Yellow; Glucose Urine UA 100 mg/dL (Negative); Leukocyte Esterase Urine Trace (Negative); Nitrite Urine Negative (Negative); PH 5.5 (5.0-9.0); Specific Gravity - Urine 1.015 (1.005-1.025); UMIC TRIGGER UACC YES; Urine Blood Large (3+) (Negative); Urine Ketones Trace mg/dL (Negative); Urine Protein 100 (2+) mg/dL (Neg-Trace)
[2023-08-16] MEDS: levETIRAcetam in NaCl (iso-os) 1,000 MG/100 ML PIGGYBACK 400 MG IV (08:38)
[2023-08-16] MEDS: Piperacillin Sodium/Tazobactam 3.375 GM in 0.9 % Sodium Chloride 50 ML IV (08:39)
[2023-08-16 08:42] LABS: Amphetamine Screen Urine Not Detected (Not Detect); Barbiturates, Urine Not Detected (Not Detect); Benzodiazepines Screen Urine POSITIVE (Not Detect); Cannabinoid Screen Urine POSITIVE (Not Detect); Cocaine Screen Urine POSITIVE (Not Detect); Opiate Screen Urine POSITIVE (Not Detect); Phencyclidine Screen Urine Not Detected (Not Detect)
--- NOTE | 2023-08-16 08:42 | PC.NURSE ---
placed temp sensing porter 200m of jamila yellow urine with sediment. patient had tampin in which was removed by rn
--- NOTE | 2023-08-16 08:43 | PC.NURSE ---
Tube placement moved to 22 at the lip by RT
[2023-08-16 08:52] LABS: Bacteria Urine None Seen (None Seen); Hyaline Casts Urine 0-2 /LPF (0-2); RBC Urine >20 /HPF (0-2); Squamous Epithelial Cell Urine 0-2 /HPF (0-2); WBC Urine 0-5 /HPF (0-5)
[2023-08-16 08:54] LABS: Glucose CSF 96 mg/dL; Total Protein CSF 28.6 mg/dL (15-45)
[2023-08-16 08:57] LABS: CSF Appearance Clear, Colorless; CSF Tube # 2
[2023-08-16 09:01] LABS: ABG Refer to POC result
--- NOTE | 2023-08-16 09:01 | PC.NURSE ---
patient family at bedside, pt father states he last saw patient 2100/2200 night prior, patient had made herself dinner and went to bed, patients mother found her this morning unresponsive in her bed.
[2023-08-16 09:07] LABS: Fentanyl, urine POSITIVE (Not Detect)
[2023-08-16 09:11] LABS: Reflex Lactate? Lactic Acid Added
[2023-08-16] MEDS: vancomycin/NS 2,000 MG/500 ML PLAST..BAG 250 MG IV (09:19)
--- NOTE | 2023-08-16 09:38 | PC.NURSE ---
patient resting in bed, mechanically ventilated, appears tp be in no distress. respirations equal bilat, skin warm pink and dry. Castañeda good output 400 ml total propofol running 50 mcg/kg/hr VSS NG tube in place
--- NOTE | 2023-08-16 09:45 | PC.NURSE ---
late entry - pt moved from bed 22 to bed 5 for intubation 0712 - 100 mcg fentanyl 131/93, poc 122 0714 - 20 mg etomidate 0715 - 100 mg succinylcholine 0716 - et tube 7.5, 23 at lip with + color change, respirations equal bilaterally 0717 - 100 mcg fentanyl 0718 - 50 mg rocuronium
--- NOTE | 2023-08-16 09:46 | P.HPCC_ITS ---
History of Present Illness Date of Service: 08/16/23 Attending physician on admission: Beatrice Zabala Chief Complaint: Toxic encephalopathy from cocaine and fentanyl 33-year-old female known polysubstance abuser just released from the hospital 2 days earlier apparently was paid a visit by boyfriend and next thing the parents know she is unresponsive on the floor still was breathing brought in with same presentation intubated extensive what appears to be aspiration pneumonia on the left side but possible damage because the toxicology is positive for cocaine and fentanyl and opiates and I did a bedside echo and it showed that she had a very severe myopathy appearing like a Takotsubo and therefore probably consistent with the cocaine and I explained to the parents that it could be permanent or could improved to a degree and remains to be seen over time but the troponin was positive but modest yet the CPK was massively elevated 35,000 so clearly there was a rhabdomyolysis And in addition to her altered state of consciousness we she was markedly tachycardic with rates up to 140 all sinus tach and and certainly in large part vena because of the profound myopathy with at best a 20% ejection fraction part of the probably just driven primarily by the cocaine but blood pressures were marginal at 90-100 systolic but with with extensive myoglobinuria we was supporting the no blood pressure and urine output in the face of acute stage III renal insufficiency by giving her IV normal saline In addition a presentation was witnessed to have eyes and head deviated to the right along with posturing of the right upper extremity implying the potential for seizure activity emanating from left hemisphere but too sick to send down for advanced imaging at this point Cerebrospinal fluid was clean there was nothing here of an infectious nature Review of Systems 2 Review of Systems: Yes Unobtainable due to mental status PMFSH Past Medical History Medical History (Updated 08/17/23 @ 07:11 by Beatrice Zabala MD) Substance abuse Social History Social History Household Members: Family Housing: House Do you presently have visiting nurse or other home services: No Unable to assess alcohol history related to: Unable to respond Alcohol intake: current Alcohol intake frequency: 0-2 drinks per day Patient Tobacco Use Status: Current someday Tobacco user Use of substances other than those prescribed or required for medical reasons: Yes Substance Use Type: Crack/Cocaine Substance Use Frequency: Chronic Longstanding Last Used Substance: Unknown Currently Displaying Signs/Symptoms of Drug Intoxication Withdrawal: No Advance Directives: No Patient : No : No Meds Allergies Allergy/AdvReac Type Severity Reaction Status Date / Time No Known Allergies Allergy Verified 04/24/23 13:48 Active Medications: Current Medications Chlorhexidine Gluconate (Chlorhexidine Gluc Oral Rinse 15 Ml Mouthwash) 15 ml BUCCAL Q8H JEANINE Hydrocortisone Sodium Succinate (Hydrocortisone Sod Succ/Pf 100 Mg Vial) 50 mg IVPUSH BID@0630,1630 JEANINE Propofol (Diprivan) 1,000 mg in 100 mls @ 0 mls/hr IVCONT .Q0M JEANINE; Protocol Last Titration: 08/16/23 08:35 Dose: 50 mcg/kg/min, 24.49 mls/hr Dextrose/Sodium Chloride (D5ns) 1,000 mls @ 100 mls/hr IVCONT .Q10H JEANINE Pantoprazole Sodium 40 mg/ (Sodium Chloride) 110 mls @ 400 mls/hr IV DAILY@0630 JEANINE Levetiracetam (Levetiracetam 500 Mg/5 Ml Vial) 500 mg IV BID JEANINE Sodium Chloride (0.9 % Sodium Chloride Flush 3 Ml Syringe) 3 ml IVFLUSH QSHIFT JEANINE Home Medications Medication Instructions Recorded Confirmed Last Taken Type No Known Home Meds 08/16/23 08/16/23 Unknown History Physical Exam 2 Vital Signs: Vital Signs: Last Vital Signs Temp 101.3 F H 08/16/23 09:37 Pulse 136 H 08/16/23 09:37 Resp 29 H 08/16/23 09:37 BP 132/77 08/16/23 09:37 Pulse Ox 100 08/16/23 09:37 O2 Del Method Mechanical Ventil ation 08/16/23 09:37 O2 Flow Rate 65 08/16/23 09:37 FiO2 60 08/16/23 08:55 BMI result Body Mass Index 29.0 She was unresponsive but eyes were now midline pupils sluggishly reactive and equal Motor tone was equal on both sides I was concerned because of jaw clenching Abdomen benign with no organomegaly Coarse rales left lung and somewhat tachypneic on the ventilator with high minutes ventilatory requirements but no evidence of interstitial edema Poor bilateral carotids indicating diminish stroke volume reserve And skin it there appears to be in the antecubital fossa on the left an area of rubor which is rather warty feeling it is consistent with a cellulitis Results Labs 08/17/23 04:43 08/17/23 04:43 Labs: Laboratory Results - last 24 hr 08/16/23 08/16/23 08/16/23 07:04 07:11 08:22 MCV 96.2 MCH 31.9 MCHC 33.1 RDW 13.0 Plt Count 373 D MPV 10.7 Immature Gran % (Auto) 1.4 H Neut % (Auto) 76.3 H Lymph % (Auto) 15.0 L [facility] % (Auto) 7.1 Eos % (Auto) 0.0 Baso % (Auto) 0.2 Lymph # (Auto) 2.1 [facility] # (Auto) 1.0 Eos # (Auto) 0.0 Baso # (Auto) 0.0 Abs Immat Gran (auto) 0.19 H Absolute Neuts (auto) 10.5 H Absolute Nucleated RBC 0.020 H Nucleated RBC % (auto) 0.1 Hold Purple Top SEE NOTE Hold Blue Top SEE NOTE O2 Saturation 99.0 ABG pH at Pt Temp 7.37 ABG pCO2 at Pt Temp 23 L ABG pO2 at Pt Temp 199 H ABG HCO3 14 L ABG Base Excess (Actual) -9.1 Anion Gap 21 H Estim Creat Clear Calc 40.0 Estimated GFR 27 POC Glucose 123 H Random Glucose 119 H Lactic Acid 4.3 H* Calcium 9.6 Total Bilirubin 0.4 Direct Bilirubin 0.2 AST 344 H ALT 114 H Alkaline Phosphatase 75 Total Creatine Kinase 76597 H Total Protein 8.2 H Albumin 4.8 Lipase 24 Urine Color Urine Appearance Urine pH Ur Specific [place] Urine Protein Urine Glucose (UA) Urine Ketones Urine Blood Urine Nitrite Ur Leukocyte Esterase Urine RBC Urine WBC Ur Squamous Epith Cells Urine Bacteria Hyaline Casts CSF Tube Number CSF Appearance (b) CSF Glucose CSF Total Protein Urine Opiates Screen Urine Fentanyl Screen Ur Barbiturates Screen Ur Phencyclidine Scrn Ur Amphetamines Screen U Benzodiazepines Scrn Urine Cocaine Screen U Marijuana (THC) Screen Ethyl Alcohol < 10 08/16/23 08/16/23 08/16/23 08:25 08:25 08:25 MCV MCH MCHC RDW Plt Count MPV Immature Gran % (Auto) Neut % (Auto) Lymph % (Auto) [facility] % (Auto) Eos % (Auto) Baso % (Auto) Lymph # (Auto) [facility] # (Auto) Eos # (Auto) Baso # (Auto) Abs Immat Gran (auto) Absolute Neuts (auto) Absolute Nucleated RBC Nucleated RBC % (auto) Hold Purple Top Hold Blue Top O2 Saturation ABG pH at Pt Temp ABG pCO2 at Pt Temp ABG pO2 at Pt Temp ABG HCO3 ABG Base Excess (Actual) Anion Gap Estim Creat Clear Calc Estimated GFR POC Glucose Random Glucose Lactic Acid Calcium Total Bilirubin Direct Bilirubin AST ALT Alkaline Phosphatase Total Creatine Kinase Total Protein Albumin Lipase Urine Color Dark Yellow Urine Appearance Cloudy Urine pH 5.5 Ur Specific [place] 1.015 Urine Protein 100 (2+) H Urine Glucose (UA) 100 H Urine Ketones Trace Urine Blood Large (3+) H Urine Nitrite Negative Ur Leukocyte Esterase Trace H Urine RBC >20 H Urine WBC 0-5 Ur Squamous Epith Cells 0-2 Urine Bacteria None Seen Hyaline Casts 0-2 CSF Tube Number Cancelled 2 CSF Appearance (b) Cancelled Clear, Colorless CSF Glucose Cancelled CSF Total Protein Urine Opiates Screen Urine Fentanyl Screen Ur Barbiturates Screen Ur Phencyclidine Scrn Ur Amphetamines Screen U Benzodiazepines Scrn Urine Cocaine Screen U Marijuana (THC) Screen Ethyl Alcohol 08/16/23 08:25 MCV MCH MCHC RDW Plt Count MPV Immature Gran % (Auto) Neut % (Auto) Lymph % (Auto) [facility] % (Auto) Eos % (Auto) Baso % (Auto) Lymph # (Auto) [facility] # (Auto) Eos # (Auto) Baso # (Auto) Abs Immat Gran (auto) Absolute Neuts (auto) Absolute Nucleated RBC Nucleated RBC % (auto) Hold Purple Top Hold Blue Top O2 Saturation ABG pH at Pt Temp ABG pCO2 at Pt Temp ABG pO2 at Pt Temp ABG HCO3 ABG Base Excess (Actual) Anion Gap Estim Creat Clear Calc Estimated GFR POC Glucose Random Glucose Lactic Acid Calcium Total Bilirubin Direct Bilirubin AST ALT Alkaline Phosphatase Total Creatine Kinase Total Protein Albumin Lipase Urine Color Urine Appearance Urine pH Ur Specific [place] Urine Protein Urine Glucose (UA) Urine Ketones Urine Blood Urine Nitrite Ur Leukocyte Esterase Urine RBC Urine WBC Ur Squamous Epith Cells Urine Bacteria Hyaline Casts CSF Tube Number CSF Appearance (b) CSF Glucose 96 CSF Total Protein 28.6 Urine Opiates Screen POSITIVE H Urine Fentanyl Screen POSITIVE H Ur Barbiturates Screen Not Detected Ur Phencyclidine Scrn Not Detected Ur Amphetamines Screen Not Detected U Benzodiazepines Scrn POSITIVE H Urine Cocaine Screen POSITIVE H U Marijuana (THC) Screen POSITIVE H Ethyl Alcohol Imaging Radiologist's Impressions: Impressions Head CT 08/16/23 07:41 IMPRESSION: No acute midline shift, mass effect or hemorrhage. 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 Given the history recommendation is MRI for full evaluation. Chest CT 08/16/23 07:51 IMPRESSION: 1. Extensive left-sided pneumonia. 2. ET tube in right mainstem bronchus which appears to have been pulled back as seen on a subsequent chest radiograph. 3. No significant abnormality is seen in the abdomen or pelvis. Fleischner guidelines were followed. Abdomen/Pelvis CT 08/16/23 07:52 IMPRESSION: 1. Extensive left-sided pneumonia. 2. ET tube in right mainstem bronchus which appears to have been pulled back as seen on a subsequent chest radiograph. 3. No significant abnormality is seen in the abdomen or pelvis. Fleischner guidelines were followed. Chest X-Ray 08/16/23 08:45 IMPRESSION: ET tube in good position. NG tube in good position. Left lower lobe infiltrate. 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: Status: Acute (10) Secondary nonischemic congestive cardiomyopathy: Status: Acute (11) Seizure cerebral: Status: Acute (12) Aspiration pneumonia: Status: Acute (13) Secondary rhabdomyolysis: Status: Acute Plan From an antibiotic standpoint will cover broadly for the aspiration pneumonitis but from the congestive cardiomyopathy standpoint the tachycardia will be left alone will just place on maintenance fluid at a fair volume and in the hopes of avoiding worsening renal function possibly reversing that process as we await culture results and when stable with like to get some additional imaging of the brain and by MRI and most particularly so we can help to prognosticate but I do believe that all this damage is overwhelming and the bases of the cocaine and most especially with the acute myopathy and the rhabdomyolysis Watch to make sure that we have no evidence of CHF from the IV fluid and that the renal insufficiency does resolve Time Spent With Patient Time: Total time managing care of this patient today _90___ minutes.
--- NOTE | 2023-08-16 09:53 | PHA.MEDREC ---
Pharmacy Consult ? Medication Reconciliation Pharmacy has completed the medication reconciliation. Spoke to patients parents
[2023-08-16] MEDS: Dextrose 5 % and 0.9 % NaCl 1,000 ML 100 ML IVCONT ×2 (10:17→19:41)
[2023-08-16 10:22] LABS: Lymphocytes CSF 100 %
[2023-08-16 10:22] LABS: ~Lactic Acid-LAB USE ONLY 2.3 mmol/L (0.5-2.0)
[2023-08-16 10:23] LABS: Appearance CSF CLEAR; CSF Tube # 1; Color CSF COLORLESS; Red Blood Cell CSF 22 MM*3; White Blood Cell CSF 2 MM*3
[2023-08-16 10:24] LABS: Appearance CSF CLEAR; CSF Monos 17 %; CSF Tube # 4; Color CSF COLORLESS; Lymphocytes CSF 83 %; Red Blood Cell CSF 14 MM*3; White Blood Cell CSF 3 MM*3
--- NOTE | 2023-08-16 10:51 | PC.NURSE ---
patient remains in ED, family at bedside. patient VSS, temp continues to be 101.5, reached out to inpt doc at 0945 regarding temp and fever medication, no new orders at this time patient remains on 50mcg propofol drip, minor hand movements, appears to be in no distress.
--- NOTE | 2023-08-16 10:55 | PC.NURSE ---
bottle 1 of propofol empty, new bottle of propofol hung before line was dry.
[2023-08-16] MEDS: Pantoprazole Sodium 40 MG in 0.9 % Sodium Chloride 100 ML 400 MG IV (11:27)
[2023-08-16] MEDS: propofoL 1,000 MG/100 ML VIAL 24.49 MG IVCONT (11:30)
[2023-08-16 11:54] LABS: Reflex Lactate? 2 Y
[2023-08-16] MEDS: Chlorhexidine Gluc Oral Rinse 15 ML MOUTHWASH BUCCAL ×2 (12:43→17:16)
[2023-08-16] MEDS: Midazolam HCl/NS 50 MG/50 ML PLAST..BAG IVCONT (12:43)
--- NOTE | 2023-08-16 12:48 | PC.NURSE ---
per Dr Zabala, pt has a SBP goal of > 90. Pt has low DBP, aware
[2023-08-16 13:10] LABS: Adenovirus PCR Not Detected (Not Detect.); Bordetella parapertussis PCR Not Detected (Not Detect.); Bordetella pertussis PCR Not Detected (Not Detect.); Chlamydia pneumoniae PCR Not Detected (Not Detect.); Coronavirus 229E PCR Not Detected (Not Detect.); Coronavirus HKU1 PCR Not Detected (Not Detect.); Coronavirus NL63 PCR Not Detected (Not Detect.); Coronavirus OC43 PCR Not Detected (Not Detect.); Human metapneumovirus PCR Not Detected (Not Detect.); Influenza A PCR Not Detected (Not Detect.); Influenza B PCR Not Detected (Not Detect.); Mycoplasma pneumoniae PCR Not Detected (Not Detect.); Parainfluenza 1 PCR Not Detected (Not Detect.); Parainfluenza 2 PCR Not Detected (Not Detect.); Parainfluenza 3 PCR Not Detected (Not Detect.); Parainfluenza 4 PCR Not Detected (Not Detect.); RSV PCR Not Detected (Not Detect.); Rhino/Enterovirus PCR Not Detected (Not Detect.)
[2023-08-16 13:21] LABS: SARS-CoV-2 PCR Not Detected (Not Detect.)
--- NOTE | 2023-08-16 13:27 | MHC.CM.PN ---
CM MET WITH PT'S PARENTS AT BEDSIDE IN ICU. PT IS INTUBATED AND UNABLE TO PARTICIPATE. PARENTS ARE REQUESTING ONLY THEY AND THE PT'S BROTHER (DAVID) AND SISTER (AMMON) BE ALLOWED TO VISIT PT AT THIS TIME. STAFF ALERTED AND SUPPORT OFFERED TO FAMILY. NO HCP ON FILE FOR PT. FAMILY DOES NOT BELIEVE SHE HAS COMPLETED ONE. CM WILL CONTINUE TO FOLLOW AND RE-VISIT FOR A MORE DETAILED ASSESSMENT.
[2023-08-16 13:32] LABS: ~Lactic Acid-LAB USE ONLY 3.1 mmol/L (0.5-2.0)
[2023-08-16] MEDS: 0.9 % Sodium Chloride Flush 3 ML SYRINGE IVFLUSH ×2 (17:16→20:50)
[2023-08-16] MEDS: Hydrocortisone Sod Succ/PF 100 MG VIAL 50 MG IVPUSH (17:16)
--- NOTE | 2023-08-16 17:39 | HO.SKINPHOTO ---
Location: coccyx Category: Stage: 1 Length: Width: Depth: cm Location: YUMIKO heels Category: Stage: Length: Width: Depth: cm Location: L elbow Category: rash Stage: Length: Width: Depth: cm Location: Top L foot Category: Stage: Length: Width: Depth: cm Location: L neck Category: Stage: Length: Width: Depth: cm Location: L AC Category: Stage: Length: Width: Depth: cm Outside L foot
[2023-08-16] MEDS: levETIRAcetam in NaCl (iso-os) 500 MG/100 ML PIGGYBACK 400 MG IV (20:50)
[2023-08-17] VITALS (27 sets, daily range): BP systolic 105–132; BP diastolic 48–97; PULSE 88–128; RESP 16–31; TEMP 34.7–38.5; O2SAT 93–100; BMI 25.7
[2023-08-17] MEDS: Chlorhexidine Gluc Oral Rinse 15 ML MOUTHWASH BUCCAL ×2 (02:13→09:02)
[2023-08-17] MEDS: Midazolam HCl/NS 50 MG/50 ML PLAST..BAG IVCONT (03:54)
[2023-08-17 04:54] LABS: VBG Base Excess -4.6 mmol/L; VBG HCO3 17 mmol/L (22-26); VBG pCO2 24 mmHg; VBG pH 7.46 (7.32-7.43); VBG pO2 125 mmHg
[2023-08-17 05:00] LABS: Venous Blood Gas Refer to POC result
[2023-08-17] MEDS: propofoL 1,000 MG/100 ML VIAL 14.7 MG IVCONT (05:02)
[2023-08-17 05:36] LABS: MANUAL DIFF FLAG NO
[2023-08-17] MEDS: Hydrocortisone Sod Succ/PF 100 MG VIAL 50 MG IVPUSH (05:37)
[2023-08-17] MEDS: Pantoprazole Sodium 40 MG in 0.9 % Sodium Chloride 100 ML 400 MG IV (05:39)
[2023-08-17 05:40] LABS: Basophils Percent Auto 0.2 % (0-2); Hematocrit 41.3 % (37.0-47.0); Hemoglobin 13.7 g/dl (12.0-16.0); Imm Gran Abs Auto 0.04 X10*3/uL (0.00-0.03); Imm Gran Pct Auto 0.3 % (0.0-0.4); Lymphocytes Absolute Auto 2.5 X10*3/uL (1.2-4.9); Lymphocytes Percent Auto 15.9 % (20-40); Mean Corpuscular HGB Conc 33.2 g/dl (31.0-35.0); Mean Corpuscular Hemoglobin 31.9 pg (27.0-33.0); Mean Corpuscular Volume 96.3 fL (80.0-98.0); Mean Platelet Volume 11.5 fL (9.4-12.3); Monocytes Absolute Auto 1.6 X10*3/uL (0.1-1.2); Monocytes Percent Auto 10.1 % (2-11); Neutrophils Absolute Auto 11.5 x10*3/uL (2.0-8.3); Neutrophils Percent Auto 73.5 % (45-73); Platelet Count 266 X10*3/uL (160-400); Red Blood Count 4.29 X10*6/uL (4.20-5.50); Red Cell Distribution Width 13.1 % (11.0-16.0); SCAN SMEAR FLAG 1; White Blood Count 15.6 X10*3/uL (4.8-10.8)
[2023-08-17] MEDS: Dextrose 5 % and 0.9 % NaCl 1,000 ML 100 ML IVCONT (05:43)
[2023-08-17 06:00] LABS: Alanine Aminotransferase 135 U/L (0-31); Albumin Level 3.2 g/dL (3.5-5.0); Alkaline Phosphatase 53 U/L (39-117); Anion Gap 16 (12-20); Aspartate Amino Transferase 397 U/L (5-31); Bilirubin Total 0.4 mg/dL (0.0-1.0); Blood Urea Nitrogen 16 mg/dL (9-16); Calcium 8.2 mg/dL (8.4-10.2); Carbon Dioxide 15 mmol/L (22-29); Chloride 113 mmol/L (96-108); Creatinine Clr Calc Pharmacy 76.1; Estimated Glomerular Filt Rate 59; Glucose Random 158 mg/dL (60-115); Magnesium 2.4 mg/dL (1.6-2.6); Phosphorus 3.1 mg/dL (2.7-4.5); Potassium 4.1 mmol/L (3.3-5.1); Sodium 140 mmol/L (135-145); Total Protein 6.1 g/dL (6.5-8.0)
--- NOTE | 2023-08-17 07:12 | PM.CCPN ---
Subjective Subjective Date of Service: 08/17/23 Interval History: 33-year-old female polysubstance abuser presented with depressed level of consciousness requiring intubation with multiorgan involvement including seizure activity for which she is on Keppra as well as an acute congestive cardiomyopathy for which is just simply receiving fluids rhabdomyolysis that main target of the fluid acute stage III renal insufficiency and as well as left-sided probably aspiration pneumonia and possibly even pulmonary infarct \left antecubital fossa is is absolute very very hard but the peripheral pulses are good there is no evidence of a compartment syndrome but it is a concern especially for no for deep infection overlying which there seems to be some turbid fluid filled bullae And we did open up 1 of the bowl I after sterile preparation to sample for culture purposes The degree of tachycardia persists at a rate of 130 no further in EKG evolutional but pressures are better at 121/87 oxygen saturations better at 95% she had persistent low-grade temperatures throughout the night Critical Care Time (minutes): 40 Physical Exam Vital Signs: Vital Signs: Last Vital Signs Temp 100.6 F H 08/17/23 07:00 Pulse 119 H 08/17/23 07:00 Resp 24 H 08/17/23 07:00 BP 119/87 08/17/23 07:00 Pulse Ox 94 08/17/23 07:00 O2 Del Method Mechanical Ventil ation 08/17/23 07:00 O2 Flow Rate 65 08/16/23 11:21 FiO2 30 08/17/23 07:00 BMI result Body Mass Index 25.7 Left antecubital area of warmth and rubor as well as a almost rock-hard feeling so concerns for more than just cellulitis but possible deep abscess but there is no crepitus 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 I did see any local you know break in the skin or pinprick so I can not even say that this isn't metastatic infection but the bully foot fluid was cultured Benign abdomen with no organomegaly or tenderness Cardiac with again diminished bilateral carotid upstrokes no neck vein distension but no resting gallops precordium is a little active And lungs without accessory muscle use little bit less tachypneic a little bit smaller minutes ventilatory requirement Objective Data Labs 08/17/23 04:43 08/17/23 04:43 Labs: Laboratory Results - last 24 hr 08/16/23 08/16/23 08/16/23 07:04 07:11 08:22 WBC 13.7 H RBC 5.02 D Hgb 16.0 D Hct 48.3 H D MCV 96.2 MCH 31.9 MCHC 33.1 RDW 13.0 Plt Count 373 D MPV 10.7 Immature Gran % (Auto) 1.4 H Neut % (Auto) 76.3 H Lymph % (Auto) 15.0 L [place] % (Auto) 7.1 Eos % (Auto) 0.0 Baso % (Auto) 0.2 Lymph # (Auto) 2.1 [place] # (Auto) 1.0 Eos # (Auto) 0.0 Baso # (Auto) 0.0 Abs Immat Gran (auto) 0.19 H Absolute Neuts (auto) 10.5 H Absolute Nucleated RBC 0.020 H Nucleated RBC % (auto) 0.1 Hold Purple Top SEE NOTE Hold Blue Top SEE NOTE O2 Saturation 99.0 ABG pH at Pt Temp 7.37 ABG pCO2 at Pt Temp 23 L ABG pO2 at Pt Temp 199 H ABG HCO3 14 L ABG Base Excess (Actual) -9.1 VBG pH VBG pCO2 VBG pO2 VBG HCO3 VBG O2 Saturation VBG Base Excess Sodium 139 Potassium 5.7 H D Chloride 106 Carbon Dioxide 18 L Anion Gap 21 H BUN 30 H Creatinine 2.13 H Estim Creat Clear Calc 40.0 Estimated GFR 27 POC Glucose 123 H Random Glucose 119 H Lactic Acid 4.3 H* Lactic Acid F/U @ 2Hr Lactic Acid F/U @ 4Hr Calcium 9.6 Phosphorus Magnesium Total Bilirubin 0.4 Direct Bilirubin 0.2 AST 344 H ALT 114 H Alkaline Phosphatase 75 Total Creatine Kinase 83494 H Troponin I High Sens 346.8 H* Total Protein 8.2 H Albumin 4.8 Lipase 24 TSH Free T4 Urine Color Urine Appearance Urine pH Ur Specific [place] Urine Protein Urine Glucose (UA) Urine Ketones Urine Blood Urine Nitrite Ur Leukocyte Esterase Urine RBC Urine WBC Ur Squamous Epith Cells Urine Bacteria Hyaline Casts CSF Tube Number CSF Volume CSF Appearance CSF Color CSF WBC CSF RBC CSF Lymphocytes CSF Monocytes % CSF Appearance (b) CSF Glucose CSF Total Protein Urine Opiates Screen Urine Fentanyl Screen Ur Barbiturates Screen Ur Phencyclidine Scrn Ur Amphetamines Screen U Benzodiazepines Scrn Urine Cocaine Screen U Marijuana (THC) Screen Ethyl Alcohol < 10 Respiratory Panel [place] Adenovirus (Rapid PCR) B.pert (TEM-PCR) B.parapertussis DNA PCR C. pneumoniae DNA (PCR) Coronavirus OC43 (PCR) Coronavirus HKU1 (PCR) Coronavirus 229E (PCR) Coronavirus NL63 (PCR) Human Metapneumovir PCR Influenza A (RT-PCR) Influenza B (RT-PCR) M. pneumoniae (PCR) Parainfluenza 1 (PCR) Parainfluenza 2 (PCR) Parainfluenza 3 (PCR) Parainfluenza 4 (PCR) RSV (PCR) Entero/Rhino (PCR) SARS-CoV-2 RNA (RT-PCR) 08/16/23 08/16/23 08/16/23 08:25 08:25 08:25 WBC RBC Hgb Hct MCV MCH MCHC RDW Plt Count MPV Immature Gran % (Auto) Neut % (Auto) Lymph % (Auto) [place] % (Auto) Eos % (Auto) Baso % (Auto) Lymph # (Auto) [place] # (Auto) Eos # (Auto) Baso # (Auto) Abs Immat Gran (auto) Absolute Neuts (auto) Absolute Nucleated RBC Nucleated RBC % (auto) Hold Purple Top Hold Blue Top O2 Saturation ABG pH at Pt Temp ABG pCO2 at Pt Temp ABG pO2 at Pt Temp ABG HCO3 ABG Base Excess (Actual) VBG pH VBG pCO2 VBG pO2 VBG HCO3 VBG O2 Saturation VBG Base Excess Sodium Potassium Chloride Carbon Dioxide Anion Gap BUN Creatinine Estim Creat Clear Calc Estimated GFR POC Glucose Random Glucose Lactic Acid Lactic Acid F/U @ 2Hr Lactic Acid F/U @ 4Hr Calcium Phosphorus Magnesium Total Bilirubin Direct Bilirubin AST ALT Alkaline Phosphatase Total Creatine Kinase Troponin I High Sens Total Protein Albumin Lipase TSH Free T4 Urine Color Dark Yellow Urine Appearance Cloudy Urine pH 5.5 Ur Specific [place] 1.015 Urine Protein 100 (2+) H Urine Glucose (UA) 100 H Urine Ketones Trace Urine Blood Large (3+) H Urine Nitrite Negative Ur Leukocyte Esterase Trace H Urine RBC >20 H Urine WBC 0-5 Ur Squamous Epith Cells 0-2 Urine Bacteria None Seen Hyaline Casts 0-2 CSF Tube Number Cancelled 1 4 CSF Volume CSF Appearance CSF Color CSF WBC CSF RBC CSF Lymphocytes CSF Monocytes % CSF Appearance (b) CSF Glucose CSF Total Protein Urine Opiates Screen Urine Fentanyl Screen Ur Barbiturates Screen Ur Phencyclidine Scrn Ur Amphetamines Screen U Benzodiazepines Scrn Urine Cocaine Screen U Marijuana (THC) Screen Ethyl Alcohol Respiratory Panel [place] Adenovirus (Rapid PCR) B.pert (TEM-PCR) B.parapertussis DNA PCR C. pneumoniae DNA (PCR) Coronavirus OC43 (PCR) Coronavirus HKU1 (PCR) Coronavirus 229E (PCR) Coronavirus NL63 (PCR) Human Metapneumovir PCR Influenza A (RT-PCR) Influenza B (RT-PCR) M. pneumoniae (PCR) Parainfluenza 1 (PCR) Parainfluenza 2 (PCR) Parainfluenza 3 (PCR) Parainfluenza 4 (PCR) RSV (PCR) Entero/Rhino (PCR) SARS-CoV-2 RNA (RT-PCR) 08/16/23 08/16/23 08/16/23 08:25 08:25 08:25 WBC RBC Hgb Hct MCV MCH MCHC RDW Plt Count MPV Immature Gran % (Auto) Neut % (Auto) Lymph % (Auto) [place] % (Auto) Eos % (Auto) Baso % (Auto) Lymph # (Auto) [place] # (Auto) Eos # (Auto) Baso # (Auto) Abs Immat Gran (auto) Absolute Neuts (auto) Absolute Nucleated RBC Nucleated RBC % (auto) Hold Purple Top Hold Blue Top O2 Saturation ABG pH at Pt Temp ABG pCO2 at Pt Temp ABG pO2 at Pt Temp ABG HCO3 ABG Base Excess (Actual) VBG pH VBG pCO2 VBG pO2 VBG HCO3 VBG O2 Saturation VBG Base Excess Sodium Potassium Chloride Carbon Dioxide Anion Gap BUN Creatinine Estim Creat Clear Calc Estimated GFR POC Glucose Random Glucose Lactic Acid Lactic Acid F/U @ 2Hr Lactic Acid F/U @ 4Hr Calcium Phosphorus Magnesium Total Bilirubin Direct Bilirubin AST ALT Alkaline Phosphatase Total Creatine Kinase Troponin I High Sens Total Protein Albumin Lipase TSH Free T4 Urine Color Urine Appearance Urine pH Ur Specific [place] Urine Protein Urine Glucose (UA) Urine Ketones Urine Blood Urine Nitrite Ur Leukocyte Esterase Urine RBC Urine WBC Ur Squamous Epith Cells Urine Bacteria Hyaline Casts CSF Tube Number 2 CSF Volume 1.0 1.0 CSF Appearance CLEAR CLEAR CSF Color COLORLESS CSF WBC CSF RBC CSF Lymphocytes CSF Monocytes % CSF Appearance (b) CSF Glucose CSF Total Protein Urine Opiates Screen Urine Fentanyl Screen Ur Barbiturates Screen Ur Phencyclidine Scrn Ur Amphetamines Screen U Benzodiazepines Scrn Urine Cocaine Screen U Marijuana (THC) Screen Ethyl Alcohol Respiratory Panel [place] Adenovirus (Rapid PCR) B.pert (TEM-PCR) B.parapertussis DNA PCR C. pneumoniae DNA (PCR) Coronavirus OC43 (PCR) Coronavirus HKU1 (PCR) Coronavirus 229E (PCR) Coronavirus NL63 (PCR) Human Metapneumovir PCR Influenza A (RT-PCR) Influenza B (RT-PCR) M. pneumoniae (PCR) Parainfluenza 1 (PCR) Parainfluenza 2 (PCR) Parainfluenza 3 (PCR) Parainfluenza 4 (PCR) RSV (PCR) Entero/Rhino (PCR) SARS-CoV-2 RNA (RT-PCR) 08/16/23 08/16/23 08/16/23 08:25 08:25 08:25 WBC RBC Hgb Hct MCV MCH MCHC RDW Plt Count MPV Immature Gran % (Auto) Neut % (Auto) Lymph % (Auto) [place] % (Auto) Eos % (Auto) Baso % (Auto) Lymph # (Auto) [place] # (Auto) Eos # (Auto) Baso # (Auto) Abs Immat Gran (auto) Absolute Neuts (auto) Absolute Nucleated RBC Nucleated RBC % (auto) Hold Purple Top Hold Blue Top O2 Saturation ABG pH at Pt Temp ABG pCO2 at Pt Temp ABG pO2 at Pt Temp ABG HCO3 ABG Base Excess (Actual) VBG pH VBG pCO2 VBG pO2 VBG HCO3 VBG O2 Saturation VBG Base Excess Sodium Potassium Chloride Carbon Dioxide Anion Gap BUN Creatinine Estim Creat Clear Calc Estimated GFR POC Glucose Random Glucose Lactic Acid Lactic Acid F/U @ 2Hr Lactic Acid F/U @ 4Hr Calcium Phosphorus Magnesium Total Bilirubin Direct Bilirubin AST ALT Alkaline Phosphatase Total Creatine Kinase Troponin I High Sens Total Protein Albumin Lipase TSH Free T4 Urine Color Urine Appearance Urine pH Ur Specific [place] Urine Protein Urine Glucose (UA) Urine Ketones Urine Blood Urine Nitrite Ur Leukocyte Esterase Urine RBC Urine WBC Ur Squamous Epith Cells Urine Bacteria Hyaline Casts CSF Tube Number CSF Volume CSF Appearance CSF Color COLORLESS CSF WBC 2 3 CSF RBC 22 14 CSF Lymphocytes 100 CSF Monocytes % CSF Appearance (b) CSF Glucose CSF Total Protein Urine Opiates Screen Urine Fentanyl Screen Ur Barbiturates Screen Ur Phencyclidine Scrn Ur Amphetamines Screen U Benzodiazepines Scrn Urine Cocaine Screen U Marijuana (THC) Screen Ethyl Alcohol Respiratory Panel [place] Adenovirus (Rapid PCR) B.pert (TEM-PCR) B.parapertussis DNA PCR C. pneumoniae DNA (PCR) Coronavirus OC43 (PCR) Coronavirus HKU1 (PCR) Coronavirus 229E (PCR) Coronavirus NL63 (PCR) Human Metapneumovir PCR Influenza A (RT-PCR) Influenza B (RT-PCR) M. pneumoniae (PCR) Parainfluenza 1 (PCR) Parainfluenza 2 (PCR) Parainfluenza 3 (PCR) Parainfluenza 4 (PCR) RSV (PCR) Entero/Rhino (PCR) SARS-CoV-2 RNA (RT-PCR) 08/16/23 08/16/23 08/16/23 08:25 08:25 08:25 WBC RBC Hgb Hct MCV MCH MCHC RDW Plt Count MPV Immature Gran % (Auto) Neut % (Auto) Lymph % (Auto) [place] % (Auto) Eos % (Auto) Baso % (Auto) Lymph # (Auto) [place] # (Auto) Eos # (Auto) Baso # (Auto) Abs Immat Gran (auto) Absolute Neuts (auto) Absolute Nucleated RBC Nucleated RBC % (auto) Hold Purple Top Hold Blue Top O2 Saturation ABG pH at Pt Temp ABG pCO2 at Pt Temp ABG pO2 at Pt Temp ABG HCO3 ABG Base Excess (Actual) VBG pH VBG pCO2 VBG pO2 VBG HCO3 VBG O2 Saturation VBG Base Excess Sodium Potassium Chloride Carbon Dioxide Anion Gap BUN Creatinine Estim Creat Clear Calc Estimated GFR POC Glucose Random Glucose Lactic Acid Lactic Acid F/U @ 2Hr Lactic Acid F/U @ 4Hr Calcium Phosphorus Magnesium Total Bilirubin Direct Bilirubin AST ALT Alkaline Phosphatase Total Creatine Kinase Troponin I High Sens Total Protein Albumin Lipase TSH Free T4 Urine Color Urine Appearance Urine pH Ur Specific [place] Urine Protein Urine Glucose (UA) Urine Ketones Urine Blood Urine Nitrite Ur Leukocyte Esterase Urine RBC Urine WBC Ur Squamous Epith Cells Urine Bacteria Hyaline Casts CSF Tube Number CSF Volume CSF Appearance CSF Color CSF WBC CSF RBC CSF Lymphocytes 83 CSF Monocytes % 17 CSF Appearance (b) Cancelled Clear, Colorless CSF Glucose Cancelled 96 CSF Total Protein 28.6 Urine Opiates Screen POSITIVE H Urine Fentanyl Screen POSITIVE H Ur Barbiturates Screen Not Detected Ur Phencyclidine Scrn Not Detected Ur Amphetamines Screen Not Detected U Benzodiazepines Scrn POSITIVE H Urine Cocaine Screen POSITIVE H U Marijuana (THC) Screen POSITIVE H Ethyl Alcohol Respiratory Panel [place] Adenovirus (Rapid PCR) B.pert (TEM-PCR) B.parapertussis DNA PCR C. pneumoniae DNA (PCR) Coronavirus OC43 (PCR) Coronavirus HKU1 (PCR) Coronavirus 229E (PCR) Coronavirus NL63 (PCR) Human Metapneumovir PCR Influenza A (RT-PCR) Influenza B (RT-PCR) M. pneumoniae (PCR) Parainfluenza 1 (PCR) Parainfluenza 2 (PCR) Parainfluenza 3 (PCR) Parainfluenza 4 (PCR) RSV (PCR) Entero/Rhino (PCR) SARS-CoV-2 RNA (RT-PCR) 08/16/23 08/16/23 08/16/23 09:46 09:50 12:59 WBC RBC Hgb Hct MCV MCH MCHC RDW Plt Count MPV Immature Gran % (Auto) Neut % (Auto) Lymph % (Auto) [place] % (Auto) Eos % (Auto) Baso % (Auto) Lymph # (Auto) [place] # (Auto) Eos # (Auto) Baso # (Auto) Abs Immat Gran (auto) Absolute Neuts (auto) Absolute Nucleated RBC Nucleated RBC % (auto) Hold Purple Top Hold Blue Top O2 Saturation ABG pH at Pt Temp ABG pCO2 at Pt Temp ABG pO2 at Pt Temp ABG HCO3 ABG Base Excess (Actual) VBG pH VBG pCO2 VBG pO2 VBG HCO3 VBG O2 Saturation VBG Base Excess Sodium Potassium Chloride Carbon Dioxide Anion Gap BUN Creatinine Estim Creat Clear Calc Estimated GFR POC Glucose Random Glucose Lactic Acid Lactic Acid F/U @ 2Hr 2.3 H* Lactic Acid F/U @ 4Hr 3.1 H* Calcium Phosphorus Magnesium Total Bilirubin Direct Bilirubin AST ALT Alkaline Phosphatase Total Creatine Kinase Troponin I High Sens Total Protein Albumin Lipase TSH 0.70 Free T4 1.10 Urine Color Urine Appearance Urine pH Ur Specific [place] Urine Protein Urine Glucose (UA) Urine Ketones Urine Blood Urine Nitrite Ur Leukocyte Esterase Urine RBC Urine WBC Ur Squamous Epith Cells Urine Bacteria Hyaline Casts CSF Tube Number CSF Volume CSF Appearance CSF Color CSF WBC CSF RBC CSF Lymphocytes CSF Monocytes % CSF Appearance (b) CSF Glucose CSF Total Protein Urine Opiates Screen Urine Fentanyl Screen Ur Barbiturates Screen Ur Phencyclidine Scrn Ur Amphetamines Screen U Benzodiazepines Scrn Urine Cocaine Screen U Marijuana (THC) Screen Ethyl Alcohol Respiratory Panel [place] See Note Adenovirus (Rapid PCR) Not Detected B.pert (TEM-PCR) Not Detected B.parapertussis DNA PCR Not Detected C. pneumoniae DNA (PCR) Not Detected Coronavirus OC43 (PCR) Not Detected Coronavirus HKU1 (PCR) Not Detected Coronavirus 229E (PCR) Not Detected Coronavirus NL63 (PCR) Not Detected Human Metapneumovir PCR Not Detected Influenza A (RT-PCR) Not Detected Influenza B (RT-PCR) Not Detected M. pneumoniae (PCR) Not Detected Parainfluenza 1 (PCR) Not Detected Parainfluenza 2 (PCR) Not Detected Parainfluenza 3 (PCR) Not Detected Parainfluenza 4 (PCR) Not Detected RSV (PCR) Not Detected Entero/Rhino (PCR) Not Detected SARS-CoV-2 RNA (RT-PCR) Not Detected 08/17/23 08/17/23 04:43 04:47 WBC 15.6 H RBC 4.29 Hgb 13.7 Hct 41.3 MCV 96.3 MCH 31.9 MCHC 33.2 RDW 13.1 Plt Count 266 D MPV 11.5 Immature Gran % (Auto) 0.3 Neut % (Auto) 73.5 H Lymph % (Auto) 15.9 L [place] % (Auto) 10.1 Eos % (Auto) 0.0 Baso % (Auto) 0.2 Lymph # (Auto) 2.5 [place] # (Auto) 1.6 H Eos # (Auto) 0.0 Baso # (Auto) 0.0 Abs Immat Gran (auto) 0.04 H Absolute Neuts (auto) 11.5 H Absolute Nucleated RBC 0.000 Nucleated RBC % (auto) 0.0 Hold Purple Top Hold Blue Top O2 Saturation ABG pH at Pt Temp ABG pCO2 at Pt Temp ABG pO2 at Pt Temp ABG HCO3 ABG Base Excess (Actual) VBG pH 7.46 H VBG pCO2 24 VBG pO2 125 VBG HCO3 17 L VBG O2 Saturation 99.0 VBG Base Excess -4.6 Sodium 140 Potassium 4.1 D Chloride 113 H Carbon Dioxide 15 L Anion Gap 16 BUN 16 Creatinine 1.06 Estim Creat Clear Calc 76.1 Estimated GFR 59 POC Glucose Random Glucose 158 H Lactic Acid Lactic Acid F/U @ 2Hr Lactic Acid F/U @ 4Hr Calcium 8.2 L D Phosphorus 3.1 Magnesium 2.4 Total Bilirubin 0.4 Direct Bilirubin AST 397 H ALT 135 H Alkaline Phosphatase 53 Total Creatine Kinase Troponin I High Sens Total Protein 6.1 L Albumin 3.2 L Lipase TSH Free T4 Urine Color Urine Appearance Urine pH Ur Specific [place] Urine Protein Urine Glucose (UA) Urine Ketones Urine Blood Urine Nitrite Ur Leukocyte Esterase Urine RBC Urine WBC Ur Squamous Epith Cells Urine Bacteria Hyaline Casts CSF Tube Number CSF Volume CSF Appearance CSF Color CSF WBC CSF RBC CSF Lymphocytes CSF Monocytes % CSF Appearance (b) CSF Glucose CSF Total Protein Urine Opiates Screen Urine Fentanyl Screen Ur Barbiturates Screen Ur Phencyclidine Scrn Ur Amphetamines Screen U Benzodiazepines Scrn Urine Cocaine Screen U Marijuana (THC) Screen Ethyl Alcohol Respiratory Panel [place] Adenovirus (Rapid PCR) B.pert (TEM-PCR) B.parapertussis DNA PCR C. pneumoniae DNA (PCR) Coronavirus OC43 (PCR) Coronavirus HKU1 (PCR) Coronavirus 229E (PCR) Coronavirus NL63 (PCR) Human Metapneumovir PCR Influenza A (RT-PCR) Influenza B (RT-PCR) M. pneumoniae (PCR) Parainfluenza 1 (PCR) Parainfluenza 2 (PCR) Parainfluenza 3 (PCR) Parainfluenza 4 (PCR) RSV (PCR) Entero/Rhino (PCR) SARS-CoV-2 RNA (RT-PCR) Microbiology Microbiology Results: Microbiology 08/16/23 08:25 Cerebrospinal Fluid Gram Stain - Final 08/16/23 08:25 Cerebrospinal Fluid CSF Examination - Final 08/16/23 08:25 Cerebrospinal Fluid Fluid Description - Final Progress Note: A&P Assessment and plan (1) Secondary rhabdomyolysis: Status: Acute (2) Aspiration pneumonia: Status: Acute (3) Seizure cerebral: Status: Acute (4) Secondary nonischemic congestive cardiomyopathy: Status: Acute (5) 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: Status: Acute (6) Pneumonia involving left lung: Status: Acute (7) Rhabdomyolysis: Status: Acute (8) Troponin I above reference range: Status: Acute (9) Acidosis, lactic: Status: Acute (10) Acute renal failure: Status: Acute (11) Fever: Status: Acute (12) Altered mental status: Status: Acute (13) Substance abuse: Status: Acute Plan So we plan to be sure to cover for staph with the vancomycin given that left arm wound and at least ultrasound that area try to better qualify in we might need surgical consult if we think there is a threatened compartment Formal echo the bed to evaluate 24 hours later the current level of LV function Acute renal insufficiency is improving so the rhabdomyolysis I think is resolving without consequence tolerating the fluid but given the hyperchloremic metabolic acidosis some going to switch fluid to Ringer's lactate Today if she remains looking stable we might decide about doing an MRI given the seizure presentation Quality Stroke Does the patient have a stroke diagnosis?: No VTE Prior VTE?: No VTE Risk Level:: Medical - moderate - high VTE Device Contraindication: N/A - Device Ordered VTE Drug Contraindication: Treatment Not Indicated
[2023-08-17] MEDS: 0.9 % Sodium Chloride Flush 3 ML SYRINGE IVFLUSH ×2 (07:15→21:07)
--- NOTE | 2023-08-17 07:42 | PHA.PROG ---
Admission Date/Time: August 16, 2023 09:37 Indication: OTHER Weight in k.3 kg Adjusted body weight in K.5 [place] body weight in K.3 Obesity Dosing Indication % IBW: 25.7 Serum Creatinine - Last 168 Hours 08/16/23 08/17/23 07:04 04:43 Creatinine 2.13 H 1.06 Estimated CrCl and GFR - Last 168 Hours 08/16/23 08/17/23 07:04 04:43 Estim Creat Clear Calc 40.0 76.1 Estimated GFR 27 59 Vancomycin Loading Dose: 2000 MG Current Vancomycin Dosing Regimen: 750 Q12 Vancomycin Monitoring using AUC goal of 400 - 600 range with trough as surrogate marker: 434 WITH TROUGH 13.9 Date and Time for next Vancomycin Level to be drawn: 08/18 @0600 Pharmacist Comments on Vancomycin Plan: Vancomycin dosing will take advantage of [employer] as a clinical decision support tool that uses Bayesian modeling to calculate individual patient's pharmacokinetic parameters and forecast the patient's drug concentration time course with the target goal AUC 24 range of 400 - 600 mg/L/hr.
--- NOTE | 2023-08-17 10:33 | MHC.CLN ---
RE: CONSULT PT IS INTUBATED AND SEDATED PT IS CURRENTLY NPO IF TF NEEDED; RECOMMEND PROMOTE AT MAX GOAL RATE 50ML/HR WITH 240ML FREE WATER FLUSHES Q 6 HRS TO PROVIDE 1200KCLAS (1588KCALS WITH SEDATION; 27KCALS/KG), 75G PROTEIN (1.3G/KG), 1967ML TOTAL WATER FROM FORMULA AND FLUSHES (33ML/KG) MONITOR TOLERANCE, RESIDUALS AND LYTES SEE ALSO FULL CLINICAL NUTRITION ASSESSMENT
--- NOTE | 2023-08-17 14:56 | HO.ANESPROP2 ---
HPI - Anesthesia Eval Consult details Narrative: for fasciotomy left arm/forearm PMFSH Active Problems Active Problems: All Active Problems (Updated 08/17/23 @ 07:11 by Beatrice Zabala MD) Secondary rhabdomyolysis (Acute) Aspiration pneumonia (Acute) Seizure cerebral (Acute) Secondary nonischemic congestive cardiomyopathy (Acute) 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 (Acute) Pneumonia involving left lung (Acute) Rhabdomyolysis (Acute) Troponin I above reference range (Acute) Acidosis, lactic (Acute) Acute renal failure (Acute) Fever (Acute) Altered mental status (Acute) Substance abuse (Acute) Upper respiratory tract infection (Acute) Flank pain (Acute) Dysuria (Acute) Wheezing (Acute) Respiratory infection (Acute) Cough (Acute) Past Medical History Medical History (Updated 08/17/23 @ 07:11 by Beatrice Zabala MD) Substance abuse Cognitive capacity: Undetermined (possible anoxic injury) Family History Family history of problems with anesthesia: No Surgical History History of Problems with Anesthesia: No Social History Social History Household Members: Family Housing: House Do you presently have visiting nurse or other home services: No Unable to assess alcohol history related to: Unable to respond Alcohol intake: current Alcohol intake frequency: 0-2 drinks per day Patient Tobacco Use Status: Current someday Tobacco user Use of substances other than those prescribed or required for medical reasons: Yes Substance Use Type: Crack/Cocaine Substance Use Frequency: Chronic Longstanding Last Used Substance: Unknown Currently Displaying Signs/Symptoms of Drug Intoxication Withdrawal: No Advance Directives: No Patient : No : No Meds Allergies Allergy/AdvReac Type Severity Reaction Status Date / Time No Known Allergies Allergy Verified 04/24/23 13:48 Active Medications: Current Medications Chlorhexidine Gluconate (Chlorhexidine Gluc Oral Rinse 15 Ml Mouthwash) 15 ml BUCCAL Q8H [facility] Last Admin: 08/17/23 09:02 Dose: 15 ml Hydrocortisone Sodium Succinate (Hydrocortisone Sod Succ/Pf 100 Mg Vial) 50 mg IVPUSH BID@0630,1630 [facility] Last Admin: 08/17/23 05:37 Dose: 50 mg Propofol (Diprivan) 1,000 mg in 100 mls @ 0 mls/hr IVCONT .Q0M [facility]; Protocol Last Admin: 08/17/23 11:53 Dose: 30 mcg/kg/min, 14.7 mls/hr Pantoprazole Sodium 40 mg/ (Sodium Chloride) 110 mls @ 400 mls/hr IV DAILY@0630 [facility] Last Infusion: 08/17/23 05:58 Dose: Infused Levetiracetam (Keppra) 500 mg in 100 mls @ 400 mls/hr IV Q12H [facility] Last Infusion: 08/17/23 09:35 Dose: Infused Midazolam HCl (Versed) 50 mg in 50 mls @ 2 mls/hr IVCONT .Q24H [facility] Last Admin: 08/17/23 03:54 Dose: 2 mg/hr, 2 mls/hr Meropenem 1 gm/ Sodium (Chloride) 100 mls @ 200 mls/hr IV Q8H [facility] Last Infusion: 08/17/23 14:09 Dose: Infused Lactated Ringer's (Lr) 1,000 mls @ 80 mls/hr IVCONT .[id number] [facility] Last Admin: 08/17/23 07:15 Dose: 80 mls/hr Vancomycin HCl 750 mg/ Sodium (Chloride) 265 mls @ 265 mls/hr IV Q12H [facility] Last Infusion: 08/17/23 10:06 Dose: Infused Methadone HCl (Methadone Hcl 20 Mg/2 Ml Oral.Conc) 30 mg PO DAILY [facility] Last Admin: 08/17/23 13:30 Dose: Not Given Midazolam HCl (Midazolam Hcl/Pf 2 Mg/2 Ml Vial) 2 mg IVPUSH Q15M PRN PRN Reason: Ventilator synchrony Last Admin: 08/16/23 12:21 Dose: 2 mg Pharmacy Consult (Consult Rx Vancomycin Dosing) 1 each MISCELLANE DAILY PRN PRN Reason: Consult order Sodium Chloride (0.9 % Sodium Chloride Flush 3 Ml Syringe) 3 ml IVFLUSH QSHIFT [facility] Last Admin: 08/17/23 07:15 Dose: 3 ml Home Medications Medication Instructions Recorded Confirmed Last Taken Type No Known Home Meds 08/16/23 08/16/23 Unknown History Exam Exam Date and Time: August 17, 2023 145 Height,Weight and Vital Signs: Height 5 ft 6 in Weight 72.3 kg Last Vital Signs Temp 97.5 F 08/17/23 12:00 Pulse 100 08/17/23 14:00 Resp 24 H 08/17/23 14:00 BP 113/89 08/17/23 14:00 Pulse Ox 99 08/17/23 14:00 O2 Del Method Mechanical Ventilation 08/17/23 14:00 O2 Flow Rate 65 08/16/23 11:21 FiO2 21 08/17/23 14:00 Pertinent Lab Results Pertinent Lab Results: Laboratory Tests 08/16/23 08/16/23 08/16/23 07:04 07:11 08:22 WBC 13.7 H RBC 5.02 D Hgb 16.0 D Hct 48.3 H D MCV 96.2 MCH 31.9 MCHC 33.1 RDW 13.0 Plt Count 373 D MPV 10.7 Immature Gran % (Auto) 1.4 H Neut % (Auto) 76.3 H Lymph % (Auto) 15.0 L [place] % (Auto) 7.1 Eos % (Auto) 0.0 Baso % (Auto) 0.2 Lymph # (Auto) 2.1 [place] # (Auto) 1.0 Eos # (Auto) 0.0 Baso # (Auto) 0.0 Abs Immat Gran (auto) 0.19 H Absolute Neuts (auto) 10.5 H Absolute Nucleated RBC 0.020 H Nucleated RBC % (auto) 0.1 Hold Purple Top SEE NOTE Hold Blue Top SEE NOTE O2 Saturation 99.0 ABG pH at Pt Temp 7.37 ABG pCO2 at Pt Temp 23 L ABG pO2 at Pt Temp 199 H ABG HCO3 14 L ABG Base Excess (Actual) -9.1 VBG pH VBG pCO2 VBG pO2 VBG HCO3 VBG O2 Saturation VBG Base Excess Sodium 139 Potassium 5.7 H D Chloride 106 Carbon Dioxide 18 L Anion Gap 21 H BUN 30 H Creatinine 2.13 H Estim Creat Clear Calc 40.0 Estimated GFR 27 POC Glucose 123 H Random Glucose 119 H Lactic Acid 4.3 H* Lactic Acid F/U @ 2Hr Lactic Acid F/U @ 4Hr Calcium 9.6 Phosphorus Magnesium Total Bilirubin 0.4 Direct Bilirubin 0.2 AST 344 H ALT 114 H Alkaline Phosphatase 75 Total Creatine Kinase 93396 H Troponin I High Sens 346.8 H* Total Protein 8.2 H Albumin 4.8 Lipase 24 TSH Free T4 Urine Color Urine Appearance Urine pH Ur Specific [place] Urine Protein Urine Glucose (UA) Urine Ketones Urine Blood Urine Nitrite Ur Leukocyte Esterase Urine RBC Urine WBC Ur Squamous Epith Cells Urine Bacteria Hyaline Casts CSF Tube Number CSF Volume CSF Appearance CSF Color CSF WBC CSF RBC CSF Lymphocytes CSF Monocytes % CSF Appearance (b) CSF Glucose CSF Total Protein Urine Opiates Screen Urine Fentanyl Screen Ur Barbiturates Screen Ur Phencyclidine Scrn Ur Amphetamines Screen U Benzodiazepines Scrn Urine Cocaine Screen U Marijuana (THC) Screen Ethyl Alcohol < 10 Respiratory Panel [place] Adenovirus (Rapid PCR) B.pert (TEM-PCR) B.parapertussis DNA PCR C. pneumoniae DNA (PCR) Coronavirus OC43 (PCR) Coronavirus HKU1 (PCR) Coronavirus 229E (PCR) Coronavirus NL63 (PCR) Human Metapneumovir PCR Influenza A (RT-PCR) Influenza B (RT-PCR) M. pneumoniae (PCR) Parainfluenza 1 (PCR) Parainfluenza 2 (PCR) Parainfluenza 3 (PCR) Parainfluenza 4 (PCR) RSV (PCR) Entero/Rhino (PCR) SARS-CoV-2 RNA (RT-PCR) 08/16/23 08/16/23 08/16/23 08:25 08:25 08:25 WBC RBC Hgb Hct MCV MCH MCHC RDW Plt Count MPV Immature Gran % (Auto) Neut % (Auto) Lymph % (Auto) [place] % (Auto) Eos % (Auto) Baso % (Auto) Lymph # (Auto) [place] # (Auto) Eos # (Auto) Baso # (Auto) Abs Immat Gran (auto) Absolute Neuts (auto) Absolute Nucleated RBC Nucleated RBC % (auto) Hold Purple Top Hold Blue Top O2 Saturation ABG pH at Pt Temp ABG pCO2 at Pt Temp ABG pO2 at Pt Temp ABG HCO3 ABG Base Excess (Actual) VBG pH VBG pCO2 VBG pO2 VBG HCO3 VBG O2 Saturation VBG Base Excess Sodium Potassium Chloride Carbon Dioxide Anion Gap BUN Creatinine Estim Creat Clear Calc Estimated GFR POC Glucose Random Glucose Lactic Acid Lactic Acid F/U @ 2Hr Lactic Acid F/U @ 4Hr Calcium Phosphorus Magnesium Total Bilirubin Direct Bilirubin AST ALT Alkaline Phosphatase Total Creatine Kinase Troponin I High Sens Total Protein Albumin Lipase TSH Free T4 Urine Color Dark Yellow Urine Appearance Cloudy Urine pH 5.5 Ur Specific [place] 1.015 Urine Protein 100 (2+) H Urine Glucose (UA) 100 H Urine Ketones Trace Urine Blood Large (3+) H Urine Nitrite Negative Ur Leukocyte Esterase Trace H Urine RBC >20 H Urine WBC 0-5 Ur Squamous Epith Cells 0-2 Urine Bacteria None Seen Hyaline Casts 0-2 CSF Tube Number Cancelled 1 4 CSF Volume CSF Appearance CSF Color CSF WBC CSF RBC CSF Lymphocytes CSF Monocytes % CSF Appearance (b) CSF Glucose CSF Total Protein Urine Opiates Screen Urine Fentanyl Screen Ur Barbiturates Screen Ur Phencyclidine Scrn Ur Amphetamines Screen U Benzodiazepines Scrn Urine Cocaine Screen U Marijuana (THC) Screen Ethyl Alcohol Respiratory Panel [place] Adenovirus (Rapid PCR) B.pert (TEM-PCR) B.parapertussis DNA PCR C. pneumoniae DNA (PCR) Coronavirus OC43 (PCR) Coronavirus HKU1 (PCR) Coronavirus 229E (PCR) Coronavirus NL63 (PCR) Human Metapneumovir PCR Influenza A (RT-PCR) Influenza B (RT-PCR) M. pneumoniae (PCR) Parainfluenza 1 (PCR) Parainfluenza 2 (PCR) Parainfluenza 3 (PCR) Parainfluenza 4 (PCR) RSV (PCR) Entero/Rhino (PCR) SARS-CoV-2 RNA (RT-PCR) 08/16/23 08/16/23 08/16/23 08:25 08:25 08:25 WBC RBC Hgb Hct MCV MCH MCHC RDW Plt Count MPV Immature Gran % (Auto) Neut % (Auto) Lymph % (Auto) [place] % (Auto) Eos % (Auto) Baso % (Auto) Lymph # (Auto) [place] # (Auto) Eos # (Auto) Baso # (Auto) Abs Immat Gran (auto) Absolute Neuts (auto) Absolute Nucleated RBC Nucleated RBC % (auto) Hold Purple Top Hold Blue Top O2 Saturation ABG pH at Pt Temp ABG pCO2 at Pt Temp ABG pO2 at Pt Temp ABG HCO3 ABG Base Excess (Actual) VBG pH VBG pCO2 VBG pO2 VBG HCO3 VBG O2 Saturation VBG Base Excess Sodium Potassium Chloride Carbon Dioxide Anion Gap BUN Creatinine Estim Creat Clear Calc Estimated GFR POC Glucose Random Glucose Lactic Acid Lactic Acid F/U @ 2Hr Lactic Acid F/U @ 4Hr Calcium Phosphorus Magnesium Total Bilirubin Direct Bilirubin AST ALT Alkaline Phosphatase Total Creatine Kinase Troponin I High Sens Total Protein Albumin Lipase TSH Free T4 Urine Color Urine Appearance Urine pH Ur Specific [place] Urine Protein Urine Glucose (UA) Urine Ketones Urine Blood Urine Nitrite Ur Leukocyte Esterase Urine RBC Urine WBC Ur Squamous Epith Cells Urine Bacteria Hyaline Casts CSF Tube Number 2 CSF Volume 1.0 1.0 CSF Appearance CLEAR CLEAR CSF Color COLORLESS CSF WBC CSF RBC CSF Lymphocytes CSF Monocytes % CSF Appearance (b) CSF Glucose CSF Total Protein Urine Opiates Screen Urine Fentanyl Screen Ur Barbiturates Screen Ur Phencyclidine Scrn Ur Amphetamines Screen U Benzodiazepines Scrn Urine Cocaine Screen U Marijuana (THC) Screen Ethyl Alcohol Respiratory Panel [place] Adenovirus (Rapid PCR) B.pert (TEM-PCR) B.parapertussis DNA PCR C. pneumoniae DNA (PCR) Coronavirus OC43 (PCR) Coronavirus HKU1 (PCR) Coronavirus 229E (PCR) Coronavirus NL63 (PCR) Human Metapneumovir PCR Influenza A (RT-PCR) Influenza B (RT-PCR) M. pneumoniae (PCR) Parainfluenza 1 (PCR) Parainfluenza 2 (PCR) Parainfluenza 3 (PCR) Parainfluenza 4 (PCR) RSV (PCR) Entero/Rhino (PCR) SARS-CoV-2 RNA (RT-PCR) 08/16/23 08/16/23 08/16/23 08:25 08:25 08:25 WBC RBC Hgb Hct MCV MCH MCHC RDW Plt Count MPV Immature Gran % (Auto) Neut % (Auto) Lymph % (Auto) [place] % (Auto) Eos % (Auto) Baso % (Auto) Lymph # (Auto) [place] # (Auto) Eos # (Auto) Baso # (Auto) Abs Immat Gran (auto) Absolute Neuts (auto) Absolute Nucleated RBC Nucleated RBC % (auto) Hold Purple Top Hold Blue Top O2 Saturation ABG pH at Pt Temp ABG pCO2 at Pt Temp ABG pO2 at Pt Temp ABG HCO3 ABG Base Excess (Actual) VBG pH VBG pCO2 VBG pO2 VBG HCO3 VBG O2 Saturation VBG Base Excess Sodium Potassium Chloride Carbon Dioxide Anion Gap BUN Creatinine Estim Creat Clear Calc Estimated GFR POC Glucose Random Glucose Lactic Acid Lactic Acid F/U @ 2Hr Lactic Acid F/U @ 4Hr Calcium Phosphorus Magnesium Total Bilirubin Direct Bilirubin AST ALT Alkaline Phosphatase Total Creatine Kinase Troponin I High Sens Total Protein Albumin Lipase TSH Free T4 Urine Color Urine Appearance Urine pH Ur Specific [place] Urine Protein Urine Glucose (UA) Urine Ketones Urine Blood Urine Nitrite Ur Leukocyte Esterase Urine RBC Urine WBC Ur Squamous Epith Cells Urine Bacteria Hyaline Casts CSF Tube Number CSF Volume CSF Appearance CSF Color COLORLESS CSF WBC 2 3 CSF RBC 22 14 CSF Lymphocytes 100 CSF Monocytes % CSF Appearance (b) CSF Glucose CSF Total Protein Urine Opiates Screen Urine Fentanyl Screen Ur Barbiturates Screen Ur Phencyclidine Scrn Ur Amphetamines Screen U Benzodiazepines Scrn Urine Cocaine Screen U Marijuana (THC) Screen Ethyl Alcohol Respiratory Panel [place] Adenovirus (Rapid PCR) B.pert (TEM-PCR) B.parapertussis DNA PCR C. pneumoniae DNA (PCR) Coronavirus OC43 (PCR) Coronavirus HKU1 (PCR) Coronavirus 229E (PCR) Coronavirus NL63 (PCR) Human Metapneumovir PCR Influenza A (RT-PCR) Influenza B (RT-PCR) M. pneumoniae (PCR) Parainfluenza 1 (PCR) Parainfluenza 2 (PCR) Parainfluenza 3 (PCR) Parainfluenza 4 (PCR) RSV (PCR) Entero/Rhino (PCR) SARS-CoV-2 RNA (RT-PCR) 08/16/23 08/16/23 08/16/23 08:25 08:25 08:25 WBC RBC Hgb Hct MCV MCH MCHC RDW Plt Count MPV Immature Gran % (Auto) Neut % (Auto) Lymph % (Auto) [place] % (Auto) Eos % (Auto) Baso % (Auto) Lymph # (Auto) [place] # (Auto) Eos # (Auto) Baso # (Auto) Abs Immat Gran (auto) Absolute Neuts (auto) Absolute Nucleated RBC Nucleated RBC % (auto) Hold Purple Top Hold Blue Top O2 Saturation ABG pH at Pt Temp ABG pCO2 at Pt Temp ABG pO2 at Pt Temp ABG HCO3 ABG Base Excess (Actual) VBG pH VBG pCO2 VBG pO2 VBG HCO3 VBG O2 Saturation VBG Base Excess Sodium Potassium Chloride Carbon Dioxide Anion Gap BUN Creatinine Estim Creat Clear Calc Estimated GFR POC Glucose Random Glucose Lactic Acid Lactic Acid F/U @ 2Hr Lactic Acid F/U @ 4Hr Calcium Phosphorus Magnesium Total Bilirubin Direct Bilirubin AST ALT Alkaline Phosphatase Total Creatine Kinase Troponin I High Sens Total Protein Albumin Lipase TSH Free T4 Urine Color Urine Appearance Urine pH Ur Specific [place] Urine Protein Urine Glucose (UA) Urine Ketones Urine Blood Urine Nitrite Ur Leukocyte Esterase Urine RBC Urine WBC Ur Squamous Epith Cells Urine Bacteria Hyaline Casts CSF Tube Number CSF Volume CSF Appearance CSF Color CSF WBC CSF RBC CSF Lymphocytes 83 CSF Monocytes % 17 CSF Appearance (b) Cancelled Clear, Colorless CSF Glucose Cancelled 96 CSF Total Protein 28.6 Urine Opiates Screen POSITIVE H Urine Fentanyl Screen POSITIVE H Ur Barbiturates Screen Not Detected Ur Phencyclidine Scrn Not Detected Ur Amphetamines Screen Not Detected U Benzodiazepines Scrn POSITIVE H Urine Cocaine Screen POSITIVE H U Marijuana (THC) Screen POSITIVE H Ethyl Alcohol Respiratory Panel [place] Adenovirus (Rapid PCR) B.pert (TEM-PCR) B.parapertussis DNA PCR C. pneumoniae DNA (PCR) Coronavirus OC43 (PCR) Coronavirus HKU1 (PCR) Coronavirus 229E (PCR) Coronavirus NL63 (PCR) Human Metapneumovir PCR Influenza A (RT-PCR) Influenza B (RT-PCR) M. pneumoniae (PCR) Parainfluenza 1 (PCR) Parainfluenza 2 (PCR) Parainfluenza 3 (PCR) Parainfluenza 4 (PCR) RSV (PCR) Entero/Rhino (PCR) SARS-CoV-2 RNA (RT-PCR) 08/16/23 08/16/23 08/16/23 09:46 09:50 12:59 WBC RBC Hgb Hct MCV MCH MCHC RDW Plt Count MPV Immature Gran % (Auto) Neut % (Auto) Lymph % (Auto) [place] % (Auto) Eos % (Auto) Baso % (Auto) Lymph # (Auto) [place] # (Auto) Eos # (Auto) Baso # (Auto) Abs Immat Gran (auto) Absolute Neuts (auto) Absolute Nucleated RBC Nucleated RBC % (auto) Hold Purple Top Hold Blue Top O2 Saturation ABG pH at Pt Temp ABG pCO2 at Pt Temp ABG pO2 at Pt Temp ABG HCO3 ABG Base Excess (Actual) VBG pH VBG pCO2 VBG pO2 VBG HCO3 VBG O2 Saturation VBG Base Excess Sodium Potassium Chloride Carbon Dioxide Anion Gap BUN Creatinine Estim Creat Clear Calc Estimated GFR POC Glucose Random Glucose Lactic Acid Lactic Acid F/U @ 2Hr 2.3 H* Lactic Acid F/U @ 4Hr 3.1 H* Calcium Phosphorus Magnesium Total Bilirubin Direct Bilirubin AST ALT Alkaline Phosphatase Total Creatine Kinase Troponin I High Sens Total Protein Albumin Lipase TSH 0.70 Free T4 1.10 Urine Color Urine Appearance Urine pH Ur Specific [place] Urine Protein Urine Glucose (UA) Urine Ketones Urine Blood Urine Nitrite Ur Leukocyte Esterase Urine RBC Urine WBC Ur Squamous Epith Cells Urine Bacteria Hyaline Casts CSF Tube Number CSF Volume CSF Appearance CSF Color CSF WBC CSF RBC CSF Lymphocytes CSF Monocytes % CSF Appearance (b) CSF Glucose CSF Total Protein Urine Opiates Screen Urine Fentanyl Screen Ur Barbiturates Screen Ur Phencyclidine Scrn Ur Amphetamines Screen U Benzodiazepines Scrn Urine Cocaine Screen U Marijuana (THC) Screen Ethyl Alcohol Respiratory Panel [place] See Note Adenovirus (Rapid PCR) Not Detected B.pert (TEM-PCR) Not Detected B.parapertussis DNA PCR Not Detected C. pneumoniae DNA (PCR) Not Detected Coronavirus OC43 (PCR) Not Detected Coronavirus HKU1 (PCR) Not Detected Coronavirus 229E (PCR) Not Detected Coronavirus NL63 (PCR) Not Detected Human Metapneumovir PCR Not Detected Influenza A (RT-PCR) Not Detected Influenza B (RT-PCR) Not Detected M. pneumoniae (PCR) Not Detected Parainfluenza 1 (PCR) Not Detected Parainfluenza 2 (PCR) Not Detected Parainfluenza 3 (PCR) Not Detected Parainfluenza 4 (PCR) Not Detected RSV (PCR) Not Detected Entero/Rhino (PCR) Not Detected SARS-CoV-2 RNA (RT-PCR) Not Detected 08/17/23 08/17/23 04:43 04:47 WBC 15.6 H RBC 4.29 Hgb 13.7 Hct 41.3 MCV 96.3 MCH 31.9 MCHC 33.2 RDW 13.1 Plt Count 266 D MPV 11.5 Immature Gran % (Auto) 0.3 Neut % (Auto) 73.5 H Lymph % (Auto) 15.9 L [place] % (Auto) 10.1 Eos % (Auto) 0.0 Baso % (Auto) 0.2 Lymph # (Auto) 2.5 [place] # (Auto) 1.6 H Eos # (Auto) 0.0 Baso # (Auto) 0.0 Abs Immat Gran (auto) 0.04 H Absolute Neuts (auto) 11.5 H Absolute Nucleated RBC 0.000 Nucleated RBC % (auto) 0.0 Hold Purple Top Hold Blue Top O2 Saturation ABG pH at Pt Temp ABG pCO2 at Pt Temp ABG pO2 at Pt Temp ABG HCO3 ABG Base Excess (Actual) VBG pH 7.46 H VBG pCO2 24 VBG pO2 125 VBG HCO3 17 L VBG O2 Saturation 99.0 VBG Base Excess -4.6 Sodium 140 Potassium 4.1 D Chloride 113 H Carbon Dioxide 15 L Anion Gap 16 BUN 16 Creatinine 1.06 Estim Creat Clear Calc 76.1 Estimated GFR 59 POC Glucose Random Glucose 158 H Lactic Acid Lactic Acid F/U @ 2Hr Lactic Acid F/U @ 4Hr Calcium 8.2 L D Phosphorus 3.1 Magnesium 2.4 Total Bilirubin 0.4 Direct Bilirubin AST 397 H ALT 135 H Alkaline Phosphatase 53 Total Creatine Kinase Troponin I High Sens Total Protein 6.1 L Albumin 3.2 L Lipase TSH Free T4 Urine Color Urine Appearance Urine pH Ur Specific [place] Urine Protein Urine Glucose (UA) Urine Ketones Urine Blood Urine Nitrite Ur Leukocyte Esterase Urine RBC Urine WBC Ur Squamous Epith Cells Urine Bacteria Hyaline Casts CSF Tube Number CSF Volume CSF Appearance CSF Color CSF WBC CSF RBC CSF Lymphocytes CSF Monocytes % CSF Appearance (b) CSF Glucose CSF Total Protein Urine Opiates Screen Urine Fentanyl Screen Ur Barbiturates Screen Ur Phencyclidine Scrn Ur Amphetamines Screen U Benzodiazepines Scrn Urine Cocaine Screen U Marijuana (THC) Screen Ethyl Alcohol Respiratory Panel [place] Adenovirus (Rapid PCR) B.pert (TEM-PCR) B.parapertussis DNA PCR C. pneumoniae DNA (PCR) Coronavirus OC43 (PCR) Coronavirus HKU1 (PCR) Coronavirus 229E (PCR) Coronavirus NL63 (PCR) Human Metapneumovir PCR Influenza A (RT-PCR) Influenza B (RT-PCR) M. pneumoniae (PCR) Parainfluenza 1 (PCR) Parainfluenza 2 (PCR) Parainfluenza 3 (PCR) Parainfluenza 4 (PCR) RSV (PCR) Entero/Rhino (PCR) SARS-CoV-2 RNA (RT-PCR) Airway Mallampati Class: Patient Non-Cooperative TM Dist: >3cm Heart: CMOP ? 2? cocaine. VSS, no pressors Lungs: On ventilator. Settings: AC 14/400/30%/+5, SpO2 97% Assessment and Plan Assessment Anesthesia Assessment: Anesthesia Plan Discussed (with parents) and Chart Reviewed Final Anesthetic Review Family History of Problems with Anesthesia: No History of Problems with Anesthesia: No NPO: Yes ASA Class: IV and Emergency Final Preanesthetic Review: No Changes in Pt Med Stat, Meds/Allgs Chart Reviewed, Consent Obtained/Reviewed and Anes Risks/Benef Reviewed Patient Risk: High Procedure Risk: Low Anesthetic Plan Anesthetic Plan: GA and Agree w/ Assess. and Plan Disposition: Inp. Admit - ICU
--- NOTE | 2023-08-17 15:14 | MHC.CM.PN ---
Pt intubated and continuing care in ICU. Condition remains guarded with multiorgan involvement. Pt has a hx of IVDU and homelessness. D/C planning pended at this time d/t pt's fragile condition. Will await improvement and assessment of functional abilities for finalization of d/c planning.
--- NOTE | 2023-08-17 16:45 | PM.CNOR ---
History of Present Illness HPI Consult date: 08/17/23 Requesting physician: Beatrice Zabala Chief complaint: Altered mental status/aspiration pnuemonitis Narrative: 33-year-old female found down with swelling in her left forearm that is worsened over the past 8 hours. She is intubated and unresponsive. CPK is been elevated and Orthopedics was consulted for compartment syndrome. [facility] Past Medical History Medical History (Updated 08/17/23 @ 16:47 by Devang Long MD) Substance abuse Social History Social History Household Members: Family Housing: House Do you presently have visiting nurse or other home services: No Unable to assess alcohol history related to: Unable to respond Alcohol intake: current Alcohol intake frequency: 0-2 drinks per day Patient Tobacco Use Status: Current someday Tobacco user Use of substances other than those prescribed or required for medical reasons: Yes Substance Use Type: Crack/Cocaine Substance Use Frequency: Chronic Longstanding Last Used Substance: Unknown Currently Displaying Signs/Symptoms of Drug Intoxication Withdrawal: No Advance Directives: No Patient : No : No Meds Allergies Allergy/AdvReac Type Severity Reaction Status Date / Time No Known Allergies Allergy Verified 04/24/23 13:48 Active Medications: Current Medications Chlorhexidine Gluconate (Chlorhexidine Gluc Oral Rinse 15 Ml Mouthwash) 15 ml BUCCAL Q8H [facility] Last Admin: 08/17/23 09:02 Dose: 15 ml Hydrocortisone Sodium Succinate (Hydrocortisone Sod Succ/Pf 100 Mg Vial) 50 mg IVPUSH BID@0630,1630 [facility] Last Admin: 08/17/23 05:37 Dose: 50 mg Propofol (Diprivan) 1,000 mg in 100 mls @ 0 mls/hr IVCONT .Q0M [facility]; Protocol Last Admin: 08/17/23 11:53 Dose: 30 mcg/kg/min, 14.7 mls/hr Pantoprazole Sodium 40 mg/ (Sodium Chloride) 110 mls @ 400 mls/hr IV DAILY@0630 [facility] Last Infusion: 08/17/23 05:58 Dose: Infused Levetiracetam (Keppra) 500 mg in 100 mls @ 400 mls/hr IV Q12H [facility] Last Infusion: 08/17/23 09:35 Dose: Infused Midazolam HCl (Versed) 50 mg in 50 mls @ 2 mls/hr IVCONT .Q24H [facility] Last Admin: 08/17/23 03:54 Dose: 2 mg/hr, 2 mls/hr Meropenem 1 gm/ Sodium (Chloride) 100 mls @ 200 mls/hr IV Q8H [facility] Last Infusion: 08/17/23 14:09 Dose: Infused Lactated Ringer's (Lr) 1,000 mls @ 80 mls/hr IVCONT .[id number] [facility] Last Admin: 08/17/23 07:15 Dose: 80 mls/hr Vancomycin HCl 750 mg/ Sodium (Chloride) 265 mls @ 265 mls/hr IV Q12H [facility] Last Infusion: 08/17/23 10:06 Dose: Infused Methadone HCl (Methadone Hcl 20 Mg/2 Ml Oral.Conc) 30 mg PO DAILY [facility] Last Admin: 08/17/23 13:30 Dose: Not Given Midazolam HCl (Midazolam Hcl/Pf 2 Mg/2 Ml Vial) 2 mg IVPUSH Q15M PRN PRN Reason: Ventilator synchrony Last Admin: 08/16/23 12:21 Dose: 2 mg Pharmacy Consult (Consult Rx Vancomycin Dosing) 1 each MISCELLANE DAILY PRN PRN Reason: Consult order Sodium Chloride (0.9 % Sodium Chloride Flush 3 Ml Syringe) 3 ml IVFLUSH QSHIFT [facility] Last Admin: 08/17/23 07:15 Dose: 3 ml Home Medications Medication Instructions Recorded Confirmed Last Taken Type No Known Home Meds 08/16/23 08/16/23 Unknown History Physical Exam Vital Signs: Vital Signs: Last Vital Signs Temp 97.5 F 08/17/23 12:00 Pulse 100 08/17/23 14:00 Resp 24 H 08/17/23 14:00 BP 113/89 08/17/23 14:00 Pulse Ox 99 08/17/23 14:00 O2 Del Method Mechanical Ventil ation 08/17/23 14:00 O2 Flow Rate 65 08/16/23 11:21 FiO2 30 08/17/23 14:48 BMI result Body Mass Index 25.7 Extrem: Other: On exam the left volar forearm is swollen and tense. There is mild flexed digits and a dopplerable but not palpable radial pulse. Results Labs 08/17/23 04:43 08/17/23 04:43 Labs: Abnormal lab results 08/17/23 08/17/23 Range/Units 04:43 04:47 WBC 15.6 H (4.8-10.8) X10*3/uL Neut % (Auto) 73.5 H (45-73) % Lymph % (Auto) 15.9 L (20-40) % [place] # (Auto) 1.6 H (0.1-1.2) X10*3/uL Abs Immat Gran (auto) 0.04 H (0.00-0.03) X10*3/uL Absolute Neuts (auto) 11.5 H (2.0-8.3) x10*3/uL VBG pH 7.46 H (7.32-7.43) VBG HCO3 17 L (22-26) mmol/L Chloride 113 H (96-108) mmol/L Carbon Dioxide 15 L (22-29) mmol/L Random Glucose 158 H (60-115) mg/dL Calcium 8.2 L D (8.4-10.2) mg/dL AST 397 H (5-31) U/L ALT 135 H (0-31) U/L Total Protein 6.1 L (6.5-8.0) g/dL Albumin 3.2 L (3.5-5.0) g/dL H & H 08/16/23 08/17/23 Range/Units 07:04 04:43 Hgb 16.0 D 13.7 (12.0-16.0) g/dl Hct 48.3 H D 41.3 (37.0-47.0) % All other labs normal. Assessment and Plan (1) Rhabdomyolysis: Status: Acute (2) Compartment syndrome of forearm: Start date: 08/17/23 Status: Acute This is a 33-year-old female with acute compartment syndrome of the left. Very tense and intubated limited due to this. I recommend fasciotomies. Discussed with parents the risks of infection damage worsening pain as well as the risk of loss of limb the complications secondary to myonecrosis. They expressed understanding and informed consent was signed. Time Spent With Patient Time: Total time managing care of this patient today __30__ minutes. Procedures Date of Service Date of Service: 08/17/23
--- NOTE | 2023-08-17 16:48 | PM.OP ---
Brief Operative Note Date of Service: 08/17/23 Pre-op diagnosis: left forearm compartment syndrome Post-op diagnosis: same Procedure: left forearm fasciotomy 4 compartment Wound vac placement Surgeon: Devang Long MD Anesthesia: GETA Was an Copy Room Technician used for this Procedure?: Yes Copy Room Technician: Mary Beth Billings Estimated blood loss (mL): 40 IV fluids (mL): 800 Pathology: none sent Condition: stable Disposition: PACU
[2023-08-18] VITALS (31 sets, daily range): BP systolic 103–131; BP diastolic 63–96; PULSE 82–120; RESP 14–29; TEMP 34.5–38.3; O2SAT 94–100; BMI 29.0
[2023-08-18] MEDS: Midazolam HCl/NS 50 MG/50 ML PLAST..BAG IVCONT ×2 (00:38→17:03)
[2023-08-18] MEDS: Pantoprazole Sodium 40 MG in 0.9 % Sodium Chloride 100 ML 400 MG IV (05:30)
[2023-08-18 05:33] LABS: Alanine Aminotransferase 110 U/L (0-31); Alkaline Phosphatase 62 U/L (39-117); Anion Gap 16 (12-20); Aspartate Amino Transferase 296 U/L (5-31); Bilirubin Total 0.4 mg/dL (0.0-1.0); Blood Urea Nitrogen 12 mg/dL (9-16); Calcium 8.5 mg/dL (8.4-10.2); Carbon Dioxide 20 mmol/L (22-29); Chloride 111 mmol/L (96-108); Estimated Glomerular Filt Rate > 60; Glucose Random 99 mg/dL (60-115); Magnesium 2.5 mg/dL (1.6-2.6); Phosphorus 2.8 mg/dL (2.7-4.5); Sodium 143 mmol/L (135-145); Total Protein 5.5 g/dL (6.5-8.0)
--- NOTE | 2023-08-18 06:42 | HE.PHANOTE ---
VANCO DOSE ADJUSTMENT BASED ON SCR AND TROUGH OF 10.1 DOSE INCREASED TO 1000 Q 12. NEXT TROUGH 08/19@ 1800
--- NOTE | 2023-08-18 08:41 | HO.POSTANES ---
Post Anesthesia Evaluation Post Anesthesia Evaluation Date of Service: 08/18/23 Vital Signs: Vital Signs Temp Pulse Resp BP Pulse Ox O2 Del Method FiO2 08/18/23 08:00 40 08/18/23 08:00 100.9 F H 116 H 27 H 130/90 H 96 Mechanical Ventilation 40 08/18/23 07:52 40 08/18/23 07:00 100.6 F H 115 H 29 H 118/91 H 99 Mechanical Ventilation 30 08/18/23 05:56 100.2 F 108 H 20 114/81 98 Mechanical Ventilation 30 08/18/23 05:17 30 08/18/23 05:00 100.2 F 100 22 H 116/83 98 Mechanical Ventilation 30 08/18/23 04:00 100.4 F 108 H 20 112/78 96 Mechanical Ventilation 30 08/18/23 03:57 104 H 112/78 08/18/23 03:57 104 H 112/78 08/18/23 03:16 30 08/18/23 03:00 100.4 F 108 H 20 120/83 99 Mechanical Ventilation 30 08/18/23 02:00 100.2 F 103 H 21 H 111/81 98 Mechanical Ventilation 30 08/18/23 01:00 100.2 F 107 H 20 114/80 98 Mechanical Ventilation 30 08/18/23 00:43 30 08/18/23 00:43 112 H 131/94 H 08/18/23 00:43 112 H 131/94 H 08/18/23 00:38 112 H 20 131/94 H 08/18/23 00:38 112 H 20 131/94 H 08/18/23 00:00 30 08/18/23 00:00 100.2 F 104 H 20 114/84 98 Mechanical Ventilation 30 08/17/23 23:00 99.7 F 95 18 114/82 99 Mechanical Ventilation 30 08/17/23 22:00 99.5 F 98 19 115/82 98 Mechanical Ventilation 30 08/17/23 21:00 99.0 F 88 16 119/85 100 Mechanical Ventilation 30 Anesthesia: General Endotracheal-GETA Mental Status: Sedated Pain Control: Satisfactory (Unable to assess) Nausea/Vomiting: None Hydration: Adequate Anesthesia-Related Issues: No Anes. Related Issues Comments: Patient remains intubated and ventilated
--- NOTE | 2023-08-18 08:59 | PM.PNORT ---
Subjective Subjective Date of Service: 08/18/23 Interval history: POD 1 s/p Left forearm fasciotomy no overnight events-patient remains intubated wound vac intact Physical Exam Vital Signs: Vital Signs: Last Vital Signs Temp 100.9 F H 08/18/23 08:00 Pulse 116 H 08/18/23 08:00 Resp 27 H 08/18/23 08:00 BP 130/90 H 08/18/23 08:00 Pulse Ox 96 08/18/23 08:00 O2 Del Method Mechanical Ventil ation 08/18/23 08:00 O2 Flow Rate 65 08/16/23 11:21 FiO2 40 08/18/23 08:00 BMI result Body Mass Index 29.0 Const: General: cooperative, healthy appearing and no acute distress Resp: Effort & Inspection: normal respiratory effort and able to speak in complete sentences Cardio: Rate: regular rate Peripheral pulses: Peripheral pulses 2+ throughout GI: Palpation (GI): Soft to palpation Skin: General skin exam: no rashes or lesions noted Extrem: Other: Left forearm wound vac intact skin is pink and franklin radial pulses present Procedures Date of Service Date of Service: 08/18/23 Progress Note: A&P Assessment and plan (1) Compartment syndrome of forearm: Status: Acute Assessment and Plan: Wound vac intact-will change today continue to monitor Time Spent With Patient Time: Total time managing care of this patient today ____ minutes. Quality Stroke Does the patient have a stroke diagnosis?: No VTE Prior VTE?: No VTE Risk Level:: Medical - moderate - high VTE Device Contraindication: N/A - Device Ordered VTE Drug Contraindication: Treatment Not Indicated
--- NOTE | 2023-08-18 09:30 | MHC.CLN ---
F/U PT IS INTUBATED AND SEDATED PT REMAINS NPO IF TF NEEDED; RECOMMEND PROMOTE AT MAX GOAL RATE 50ML/HR WITH 240ML FREE WATER FLUSHES Q 6 HRS TO PROVIDE 1200KCALS (1717KCALS WITH SEDATION; 29KCALS/KG), 75G PROTEIN (1.3G/KG), 1967ML TOTAL WATER FROM FORMULA AND FLUSHES (33ML/KG) MONITOR TOLERANCE, RESIDUALS AND LYTES
[2023-08-18] MEDS: 0.9 % Sodium Chloride Flush 3 ML SYRINGE IVFLUSH ×3 (09:47→23:33)
--- NOTE | 2023-08-18 12:53 | PM.CNGS ---
History of Present Illness Consult details Consult date: 08/18/23 Reason for consult: other (Rule out arm ischemia) Requesting physician: Devang Long Narrative: Very complex 33-year-old female with a known history of polysubstance abuse was released from another hospital 2 days prior and was seen by her boyfriend. She was subsequently brought in to [place] [facility] and required intubation. Toxicology was positive for cocaine fentanyl and opiates. It was unclear what her down time was. It appeared to be a left upper extremity compartment issue. The arm was opened and fasciotomy was performed. There was concern about decreased bleeding from the orthopedic surgeon. Now presents to us for evaluation of arterial supply of that left upper extremity. Patient was seen at 1155 a.m. approximately 1 hour after orthopedic surgeries request. Review of Systems Review of Systems: Yes unobtainable due to endotracheal tube and Unobtainable due to mental condition Cardiovascular: Cardiovascular: Denies chest pain, Denies chest pain at rest and Denies chest pain with activity Integumentary/Breasts: Skin/Breast: Denies skin ulcer and Denies wounds PMFSH Past Medical History Medical History (Updated 08/17/23 @ 16:47 by Devang Logn MD) Substance abuse Social History Social History Household Members: Family Housing: House Do you presently have visiting nurse or other home services: No Unable to assess alcohol history related to: Unable to respond Alcohol intake: current Alcohol intake frequency: 0-2 drinks per day Patient Tobacco Use Status: Current someday Tobacco user Use of substances other than those prescribed or required for medical reasons: Yes Substance Use Type: Crack/Cocaine Substance Use Frequency: Chronic Longstanding Last Used Substance: Unknown Currently Displaying Signs/Symptoms of Drug Intoxication Withdrawal: No Advance Directives: No Patient : No : No Meds Allergies Allergy/AdvReac Type Severity Reaction Status Date / Time No Known Allergies Allergy Verified 04/24/23 13:48 Active Medications: Current Medications Chlorhexidine Gluconate (Chlorhexidine Gluc Oral Rinse 15 Ml Mouthwash) 15 ml BUCCAL Q8H [facility] Last Admin: 08/18/23 09:48 Dose: 15 ml Fentanyl (Fentanyl Citrate/Pf 100 Mcg/2 Ml Vial) 100 mcg IVPUSH Q5M [facility]; Protocol PRN Reason: Pain, Severe (Pain Scale 7-10) Last Admin: 08/18/23 10:54 Dose: 100 mcg Hydrocortisone Sodium Succinate (Hydrocortisone Sod Succ/Pf 100 Mg Vial) 50 mg IVPUSH BID@0630,1630 [facility] Last Admin: 08/18/23 05:49 Dose: 50 mg Propofol (Diprivan) 1,000 mg in 100 mls @ 0 mls/hr IVCONT .Q0M [facility]; Protocol Last Admin: 08/18/23 08:19 Dose: 40 mcg/kg/min, 19.6 mls/hr Pantoprazole Sodium 40 mg/ (Sodium Chloride) 110 mls @ 400 mls/hr IV DAILY@0630 [facility] Last Infusion: 08/18/23 06:11 Dose: Infused Levetiracetam (Keppra) 500 mg in 100 mls @ 400 mls/hr IV Q12H [facility] Last Admin: 08/18/23 09:42 Dose: 9 mls/hr Midazolam HCl (Versed) 50 mg in 50 mls @ 2 mls/hr IVCONT .Q24H [facility] Last Admin: 08/18/23 00:38 Dose: 2 mg/hr, 2 mls/hr Meropenem 1 gm/ Sodium (Chloride) 100 mls @ 200 mls/hr IV Q8H [facility] Last Infusion: 08/18/23 06:10 Dose: Infused Lactated Ringer's (Lr) 1,000 mls @ 80 mls/hr IVCONT .[id number] [facility] Last Admin: 08/18/23 07:51 Dose: 80 mls/hr Vancomycin HCl 1,000 mg/ (Sodium Chloride) 270 mls @ 270 mls/hr IV Q12H [facility] Last Infusion: 08/18/23 09:23 Dose: Infused Methadone HCl (Methadone Hcl 20 Mg/2 Ml Oral.Conc) 30 mg PO DAILY [facility] Last Admin: 08/18/23 07:56 Dose: 30 mg Midazolam HCl (Midazolam Hcl/Pf 2 Mg/2 Ml Vial) 2 mg IVPUSH Q15M PRN PRN Reason: Ventilator synchrony Last Admin: 08/16/23 12:21 Dose: 2 mg Pharmacy Consult (Consult Rx Vancomycin Dosing) 1 each MISCELLANE DAILY PRN PRN Reason: Consult order Sodium Chloride (0.9 % Sodium Chloride Flush 3 Ml Syringe) 3 ml IVFLUSH QSHIFT [facility] Last Admin: 08/18/23 09:47 Dose: 3 ml Home Medications Medication Instructions Recorded Confirmed Last Taken Type No Known Home Meds 08/16/23 08/16/23 Unknown History Physical Exam Vital Signs: Vital Signs: Last Vital Signs Temp 99.1 F 08/18/23 12:00 Pulse 87 08/18/23 12:00 Resp 14 08/18/23 12:00 BP 107/68 08/18/23 12:00 Pulse Ox 98 08/18/23 12:00 O2 Del Method Mechanical Ventil ation 08/18/23 12:00 O2 Flow Rate 65 08/16/23 11:21 FiO2 40 08/18/23 12:28 BMI result Body Mass Index 29.0 Const: Other: Intubated and sedated HEENT: Head: Yes normal to inspection Neck: Neck: Yes normal visual inspection Carotids: no bruits Chest: Other: Moving air bilaterally Chest palpation & inspection: normal inspection of the chest Resp: Effort & Inspection: normal respiratory effort and able to speak in complete sentences Auscultation: clear to auscultation bilaterally, no crackles, no rales, no rhonchi and no wheezes Cardio: Rate: regular rate Rhythm: regular rhythm Heart sounds: S1 normal heart sound present and S2 normal heart sound present Bruits: no carotid bruits Peripheral pulses: Peripheral pulses 2+ throughout GI: Inspection: Yes normal to inspection Skin: Wounds: no wounds Hair: normal Neuro: Cranial nerves: Yes CN's II-XII intact bilaterally Cognition (Neuro): normal cognition Motor exam (neuro): 5/5 motor strength present throughout Extrem: Other: Left upper extremity arm forearm open with wound VAC intact General: No clubbing, No cyanosis and No edema Psych: Appearance: grossly normal Mental Status: mental status grossly normal Speech and movement: Normal speech and movement present Results Labs 08/18/23 04:28 08/18/23 04:28 Labs: Abnormal lab results 08/18/23 08/18/23 Range/Units 04:28 04:34 WBC 13.7 H (4.8-10.8) X10*3/uL RBC 3.88 L (4.20-5.50) X10*6/uL Abs Immat Gran (auto) 0.05 H (0.00-0.03) X10*3/uL VBG pH 7.50 H (7.32-7.43) Chloride 111 H (96-108) mmol/L Carbon Dioxide 20 L (22-29) mmol/L AST 296 H (5-31) U/L ALT 110 H (0-31) U/L Total Creatine Kinase 65387 H (26-140) U/L Total Protein 5.5 L (6.5-8.0) g/dL Albumin 3.0 L (3.5-5.0) g/dL Short CBC 08/18/23 Range/Units 04:28 WBC 13.7 H (4.8-10.8) X10*3/uL Hgb 12.4 (12.0-16.0) g/dl Hct 37.9 (37.0-47.0) % Plt Count 250 (160-400) X10*3/uL BMP 08/18/23 04:28 Sodium 143 Potassium 4.0 Chloride 111 H Carbon Dioxide 20 L BUN 12 Creatinine 0.79 Calcium 8.5 Cardiac Enzymes 08/18/23 Range/Units 04:28 Total Creatine Kinase 41546 H (26-140) U/L Liver Function 08/18/23 Range/Units 04:28 Total Bilirubin 0.4 (0.0-1.0) mg/dL AST 296 H (5-31) U/L ALT 110 H (0-31) U/L Alkaline Phosphatase 62 (39-117) U/L Albumin 3.0 L (3.5-5.0) g/dL Urine 08/16/23 08/17/23 Range/Units 08:25 Unknown Urine Color Dark Yellow Urine Appearance Cloudy Urine pH 5.5 (5.0-9.0) Ur Specific [place] 1.015 (1.005-1.025) Urine Protein 100 (2+) H (Neg-Trace) mg/dL Urine Glucose (UA) 100 H (Negative) mg/dL Urine Test NEGATIVE (NEGATIVE) All other labs normal. Imaging Additional studies: Noninvasive left upper extremity arterial ultrasound from 08/17/2023 was reviewed and demonstrated no significant stenosis but monophasic waveform due to underlying disease. Written report and images were reviewed with the ultrasound team. Assessment and Plan (1) Compartment syndrome of forearm: Status: Acute Plan In short patient has compartment syndrome of the left upper extremity. It is difficult to ascertain motor and sensation as the patient is already intubated and sedated. I did do a bedside ultrasound which demonstrated good biphasic flow to the ulnar artery monophasic flow to the radial artery. But flow was present all the way down. Patient did have reasonable capillary refill. I do think the patient has adequate arterial supply to supply the arm. At the current time would maintain pressure and would try to avoid pressors. Continue fasciotomy care per were Orthopedics. Will not be able to make a full assessment until patient is awake. We will peripherally follow with you. Thank you for allowing me to participate in this unfortunate patient's care. Time Spent With Patient Time: Total time managing care of this patient today __60__ minutes. Time was spent for record assessment, management of services, imaging review, discussion with ultrasound team, discussion with ICU team, discussion with orthopedic surgeon. Procedures Date of Service Date of Service: 08/18/23
--- NOTE | 2023-08-18 13:20 | MHC.CM.PN ---
Pt continues care in ICU: ventilatory support and post op from an upper extremity fasciotomy w/wound vac placement. Pt will pamela require STR for vac management and post d/c care. Will refer to [facility] as pt has hx of substance use. CM to follow.
--- NOTE | 2023-08-18 13:35 | MHC.RECOVRN ---
Met with pts mother and father in 253 to provide support. Mother reports patient has been to [facility] in the past, years ago, for OUD and had been on methadone x 7 years. Mother reports patient tapered off of methadone approx 3 years ago. Mother and father report patient has been drinking alcohol excessively recently (had 20 nips in her purse) and her behavior has not been baseline. Parents inquiring about continued [facility] treatment after hospitalization, discussed CSS level of care. Also informed parents pt would likely need STR and depending on how long it has been since patient's last use, other levels of care may be an option. Parents denied questions or concerns at this time. Will continue to follow.
--- NOTE | 2023-08-18 14:38 | P.CONAN_ITS ---
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 (Acute) Pneumonia involving left lung (Acute) Rhabdomyolysis (Acute) Troponin I above reference range (Acute) Acidosis, lactic (Acute) Acute renal failure (Acute) Fever (Acute) Altered mental status (Acute) Substance abuse (Acute) Upper respiratory tract infection (Acute) Flank pain (Acute) Dysuria (Acute) Wheezing (Acute) Respiratory infection (Acute) Cough (Acute) Past Medical History Medical History Substance abuse Social History Social History Household Members: Family and Children Household Members Other:: Parents, siblings, son Housing: House Do you presently have visiting nurse or other home services: No Unable to assess alcohol history related to: Unable to respond Alcohol intake: current Alcohol intake frequency: 0-2 drinks per day Patient Tobacco Use Status: Current everyday Tobacco user Tobacco use type: Cigarette Use of substances other than those prescribed or required for medical reasons: Yes Substance Use Type: Heroin Substance Use Frequency: Occasionally Last Used Substance: Weeks (ago) Currently Displaying Signs/Symptoms of Drug Intoxication Withdrawal: No Have you been hit, kicked, punched, or otherwise hurt by someone within the past year? If so, by whom?: No Do you feel safe in your current relationship?: No Current Relationship Is there a partner from a previous relationship who is making you feel unsafe now?: No Are you made to feel afraid or neglected: No Are you DNR?: No Advance Directives: No Advance Directives Information Provided: No Advance Directives on File: No Do you have thoughts of harming others: None Do you have a plan to hurt others: No Plan Recently lost weight without trying: No How much weight loss: Not applicable Eating poorly because of decreased appetite: No Nutrition screen score: 0 Nutrition Risks: No Nutritional Risk Patient : No : No Poor oral hygiene: No Meds Allergies Allergy/AdvReac Type Severity Reaction Status Date / Time No Known Allergies Allergy Verified 04/24/23 13:48 Home Medications Medication Instructions Recorded Confirmed Last Taken Type No Known Home Meds 08/16/23 08/16/23 Unknown History Exam Height,Weight and Vital Signs: Height 5 ft 6 in Weight 81.6 kg Last Vital Signs Temp 99.0 F 08/18/23 14:00 Pulse 87 08/18/23 14:00 Resp 14 08/18/23 14:00 BP 108/72 08/18/23 14:00 Pulse Ox 95 08/18/23 14:00 O2 Del Method Mechanical Ventilation 08/18/23 14:00 O2 Flow Rate 65 08/16/23 11:21 FiO2 35 08/18/23 14:00 Vital Signs Temp Pulse Resp BP Pulse Ox O2 Del Method O2 Flow Rate 08/25/23 13:22 98.8 F 84 18 100/53 L 90 L Room Air, Nasal Cannula 2 08/25/23 11:51 99.1 F 86 18 110/57 L 95 Room Air 08/25/23 09:38 91 100/53 L 96 08/25/23 07:45 98.4 F 91 16 100/53 L 96 Room Air 08/25/23 00:00 97.4 F 96 18 119/67 92 Room Air 08/24/23 19:05 98.5 F 83 20 104/68 93 Room Air 08/24/23 15:16 98.0 F 95 20 104/62 94 Room Air Airway Mallampati Class: III TM Dist: >3cm Neck ROM: Limited Loose/Missing/Broken Teeth: Yes (Poor dentition. Broken, chipped) Heart: RRR Lungs: CTAB Assessment and Plan Assessment Anesthesia Assessment: Anesthesia Plan Discussed and Chart Reviewed Final Anesthetic Review NPO: Yes ASA Class: IV Final Preanesthetic Review: No Changes in Pt Med Stat, Meds/Allgs Chart Reviewed, Consent Obtained/Reviewed and Anes Risks/Benef Reviewed Patient Risk: High Procedure Risk: Low Assessment/Block/Sedation in SS: Assess/Block/Sedation-SS Anesthetic Plan Anesthetic Plan: GA and MAC: Disposition: Standard PACU and Inp. Admit - Standard Bed Documented by User: Vickie Andino MD 08/30/23 09:33 [facility] Past Medical History Medical History Substance abuse Social History Social History Household Members: Family and Children Household Members Other:: Parents, siblings, son Housing: House Do you presently have visiting nurse or other home services: No Unable to assess alcohol history related to: Unable to respond Alcohol intake: current Alcohol intake frequency: 0-2 drinks per day Patient Tobacco Use Status: Current everyday Tobacco user Tobacco use type: Cigarette Use of substances other than those prescribed or required for medical reasons: Yes Substance Use Type: Heroin Substance Use Frequency: Occasionally Last Used Substance: Weeks (ago) Currently Displaying Signs/Symptoms of Drug Intoxication Withdrawal: No Have you been hit, kicked, punched, or otherwise hurt by someone within the past year? If so, by whom?: No Do you feel safe in your current relationship?: No Current Relationship Is there a partner from a previous relationship who is making you feel unsafe now?: No Are you made to feel afraid or neglected: No Are you DNR?: No Advance Directives: No Advance Directives Information Provided: No Advance Directives on File: No Do you have thoughts of harming others: None Do you have a plan to hurt others: No Plan Recently lost weight without trying: No How much weight loss: Not applicable Eating poorly because of decreased appetite: No Nutrition screen score: 0 Nutrition Risks: No Nutritional Risk Patient : No : No Poor oral hygiene: No Meds Allergies Allergy/AdvReac Type Severity Reaction Status Date / Time No Known Allergies Allergy Verified 04/24/23 13:48 Home Medications Medication Instructions Recorded Confirmed Last Taken Type No Known Home Meds 08/16/23 08/16/23 Unknown History Assessment and Plan Final Anesthetic Review ASA Class: III Patient Risk: Intermediate Anesthetic Plan Anesthetic Plan: GA Documented by User: Brenda Acosta MD [facility] Active Problems Active Problems: All Active Problems (Updated 08/17/23 @ 16:47 by Devang Long MD) Compartment syndrome of forearm (Acute) Secondary rhabdomyolysis (Acute) Aspiration pneumonia (Acute) Seizure cerebral (Acute) Secondary nonischemic congestive cardiomyopathy (Acute) 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 (Acute) Pneumonia involving left lung (Acute) Rhabdomyolysis (Acute) Troponin I above reference range (Acute) Acidosis, lactic (Acute) Acute renal failure (Acute) Fever (Acute) Altered mental status (Acute) Substance abuse (Acute) Upper respiratory tract infection (Acute) Flank pain (Acute) Dysuria (Acute) Wheezing (Acute) Respiratory infection (Acute) Cough (Acute) Past Medical History Medical History Substance abuse Family History Family history of problems with anesthesia: No Surgical History History of Problems with Anesthesia: No Social History Social History Household Members: Family and Children Household Members Other:: Parents, siblings, son Housing: House Do you presently have visiting nurse or other home services: No Unable to assess alcohol history related to: Unable to respond Alcohol intake: current Alcohol intake frequency: 0-2 drinks per day Patient Tobacco Use Status: Current everyday Tobacco user Tobacco use type: Cigarette Use of substances other than those prescribed or required for medical reasons: Yes Substance Use Type: Heroin Substance Use Frequency: Occasionally Last Used Substance: Weeks (ago) Currently Displaying Signs/Symptoms of Drug Intoxication Withdrawal: No Have you been hit, kicked, punched, or otherwise hurt by someone within the past year? If so, by whom?: No Do you feel safe in your current relationship?: No Current Relationship Is there a partner from a previous relationship who is making you feel unsafe now?: No Are you made to feel afraid or neglected: No Are you DNR?: No Advance Directives: No Advance Directives Information Provided: No Advance Directives on File: No Do you have thoughts of harming others: None Do you have a plan to hurt others: No Plan Recently lost weight without trying: No How much weight loss: Not applicable Eating poorly because of decreased appetite: No Nutrition screen score: 0 Nutrition Risks: No Nutritional Risk Patient : No : No Poor oral hygiene: No Meds Allergies Allergy/AdvReac Type Severity Reaction Status Date / Time No Known Allergies Allergy Verified 04/24/23 13:48 Active Medications: Current Medications Chlorhexidine Gluconate (Chlorhexidine Gluc Oral Rinse 15 Ml Mouthwash) 15 ml BUCCAL Q8H [facility] Last Admin: 08/18/23 09:48 Dose: 15 ml Fentanyl (Fentanyl Citrate/Pf 100 Mcg/2 Ml Vial) 100 mcg IVPUSH Q5M PRN; P rotocol PRN Reason: Pain, Severe (Pain Scale 7-10) Last Admin: 08/18/23 10:54 Dose: 100 mcg Hydrocortisone Sodium Succinate (Hydrocortisone Sod Succ/Pf 100 Mg Vial) 50 mg IVPUSH BID@0630,1630 [facility] Last Admin: 08/18/23 05:49 Dose: 50 mg Propofol (Diprivan) 1,000 mg in 100 mls @ 0 mls/hr IVCONT .Q0M [facility]; Protocol Last Admin: 08/18/23 12:52 Dose: 30 mcg/kg/min, 14.7 mls/hr Pantoprazole Sodium 40 mg/ (Sodium Chloride) 110 mls @ 400 mls/hr IV DAILY@0630 [facility] Last Infusion: 08/18/23 06:11 Dose: Infused Levetiracetam (Keppra) 500 mg in 100 mls @ 400 mls/hr IV Q12H [facility] Last Admin: 08/18/23 09:42 Dose: 9 mls/hr Midazolam HCl (Versed) 50 mg in 50 mls @ 2 mls/hr IVCONT .Q24H [facility] Last Admin: 08/18/23 00:38 Dose: 2 mg/hr, 2 mls/hr Meropenem 1 gm/ Sodium (Chloride) 100 mls @ 200 mls/hr IV Q8H [facility] Last Admin: 08/18/23 14:33 Dose: 200 mls/hr Lactated Ringer's (Lr) 1,000 mls @ 80 mls/hr IVCONT .[id number] [facility] Last Admin: 08/18/23 07:51 Dose: 80 mls/hr Vancomycin HCl 1,000 mg/ (Sodium Chloride) 270 mls @ 270 mls/hr IV Q12H [facility] Last Infusion: 08/18/23 09:23 Dose: Infused Methadone HCl (Methadone Hcl 20 Mg/2 Ml Oral.Conc) 30 mg PO DAILY [facility] Last Admin: 08/18/23 07:56 Dose: 30 mg Midazolam HCl (Midazolam Hcl/Pf 2 Mg/2 Ml Vial) 2 mg IVPUSH Q15M PRN PRN Reason: Ventilator synchrony Last Admin: 08/16/23 12:21 Dose: 2 mg Pharmacy Consult (Consult Rx Vancomycin Dosing) 1 each MISCELLANE DAILY PRN PRN Reason: Consult order Sodium Chloride (0.9 % Sodium Chloride Flush 3 Ml Syringe) 3 ml IVFLUSH QSHIFT [facility] Last Admin: 08/18/23 09:47 Dose: 3 ml Home Medications Medication Instructions Recorded Confirmed Last Taken Type No Known Home Meds 08/16/23 08/16/23 Unknown History Exam Exam Date and Time: August 18, 2023 143 Height,Weight and Vital Signs: Height 5 ft 6 in Weight 81.6 kg Last Vital Signs Temp 99.0 F 08/18/23 14:00 Pulse 87 08/18/23 14:00 Resp 14 08/18/23 14:00 BP 108/72 08/18/23 14:00 Pulse Ox 95 08/18/23 14:00 O2 Del Method Mechanical Ventilation 08/18/23 14:00 O2 Flow Rate 65 08/16/23 11:21 FiO2 35 08/18/23 14:00 Pertinent Lab Results Pertinent Lab Results: Laboratory Tests 08/16/23 08/16/23 08/16/23 07:04 07:11 08:22 WBC 13.7 H RBC 5.02 D Hgb 16.0 D Hct 48.3 H D MCV 96.2 MCH 31.9 MCHC 33.1 RDW 13.0 Plt Count 373 D MPV 10.7 Immature Gran % (Auto) 1.4 H Neut % (Auto) 76.3 H Lymph % (Auto) 15.0 L [place] % (Auto) 7.1 Eos % (Auto) 0.0 Baso % (Auto) 0.2 Lymph # (Auto) 2.1 [place] # (Auto) 1.0 Eos # (Auto) 0.0 Baso # (Auto) 0.0 Abs Immat Gran (auto) 0.19 H Absolute Neuts (auto) 10.5 H Absolute Nucleated RBC 0.020 H Nucleated RBC % (auto) 0.1 Smear Tech's Comments Hold Purple Top SEE NOTE Hold Blue Top SEE NOTE O2 Saturation 99.0 ABG pH at Pt Temp 7.37 ABG pCO2 at Pt Temp 23 L ABG pO2 at Pt Temp 199 H ABG HCO3 14 L ABG Base Excess (Actual) -9.1 VBG pH VBG pCO2 VBG pO2 VBG HCO3 VBG O2 Saturation VBG Base Excess Sodium 139 Potassium 5.7 H D Chloride 106 Carbon Dioxide 18 L Anion Gap 21 H BUN 30 H Creatinine 2.13 H Estim Creat Clear Calc 40.0 Estimated GFR 27 POC Glucose 123 H Random Glucose 119 H Lactic Acid 4.3 H* Lactic Acid F/U @ 2Hr Lactic Acid F/U @ 4Hr Calcium 9.6 Phosphorus Magnesium Total Bilirubin 0.4 Direct Bilirubin 0.2 AST 344 H ALT 114 H Alkaline Phosphatase 75 Total Creatine Kinase 24091 H Troponin I High Sens 346.8 H* Total Protein 8.2 H Albumin 4.8 Lipase 24 TSH Free T4 Urine Color Urine Appearance Urine pH Ur Specific [place] Urine Protein Urine Glucose (UA) Urine Ketones Urine Blood Urine Nitrite Ur Leukocyte Esterase Urine RBC Urine WBC Ur Squamous Epith Cells Urine Bacteria Hyaline Casts Urine Test CSF Tube Number CSF Volume CSF Appearance CSF Color CSF WBC CSF RBC CSF Lymphocytes CSF Monocytes % CSF Appearance (b) CSF Glucose CSF Total Protein Vancomycin Trough Urine Opiates Screen Urine Fentanyl Screen Ur Barbiturates Screen Ur Phencyclidine Scrn Ur Amphetamines Screen U Benzodiazepines Scrn Urine Cocaine Screen U Marijuana (THC) Screen Ethyl Alcohol < 10 Respiratory Panel [place] Adenovirus (Rapid PCR) B.pert (TEM-PCR) B.parapertussis DNA PCR C. pneumoniae DNA (PCR) Coronavirus OC43 (PCR) Coronavirus HKU1 (PCR) Coronavirus 229E (PCR) Coronavirus NL63 (PCR) Human Metapneumovir PCR Influenza A (RT-PCR) Influenza B (RT-PCR) M. pneumoniae (PCR) Parainfluenza 1 (PCR) Parainfluenza 2 (PCR) Parainfluenza 3 (PCR) Parainfluenza 4 (PCR) RSV (PCR) Entero/Rhino (PCR) SARS-CoV-2 RNA (RT-PCR) 08/16/23 08/16/23 08/16/23 08:25 08:25 08:25 WBC RBC Hgb Hct MCV MCH MCHC RDW Plt Count MPV Immature Gran % (Auto) Neut % (Auto) Lymph % (Auto) [place] % (Auto) Eos % (Auto) Baso % (Auto) Lymph # (Auto) [place] # (Auto) Eos # (Auto) Baso # (Auto) Abs Immat Gran (auto) Absolute Neuts (auto) Absolute Nucleated RBC Nucleated RBC % (auto) Smear Tech's Comments Hold Purple Top Hold Blue Top O2 Saturation ABG pH at Pt Temp ABG pCO2 at Pt Temp ABG pO2 at Pt Temp ABG HCO3 ABG Base Excess (Actual) VBG pH VBG pCO2 VBG pO2 VBG HCO3 VBG O2 Saturation VBG Base Excess Sodium Potassium Chloride Carbon Dioxide Anion Gap BUN Creatinine Estim Creat Clear Calc Estimated GFR POC Glucose Random Glucose Lactic Acid Lactic Acid F/U @ 2Hr Lactic Acid F/U @ 4Hr Calcium Phosphorus Magnesium Total Bilirubin Direct Bilirubin AST ALT Alkaline Phosphatase Total Creatine Kinase Troponin I High Sens Total Protein Albumin Lipase TSH Free T4 Urine Color Dark Yellow Urine Appearance Cloudy Urine pH 5.5 Ur Specific [place] 1.015 Urine Protein 100 (2+) H Urine Glucose (UA) 100 H Urine Ketones Trace Urine Blood Large (3+) H Urine Nitrite Negative Ur Leukocyte Esterase Trace H Urine RBC >20 H Urine WBC 0-5 Ur Squamous Epith Cells 0-2 Urine Bacteria None Seen Hyaline Casts 0-2 Urine Test CSF Tube Number Cancelled 1 4 CSF Volume CSF Appearance CSF Color CSF WBC CSF RBC CSF Lymphocytes CSF Monocytes % CSF Appearance (b) CSF Glucose CSF Total Protein Vancomycin Trough Urine Opiates Screen Urine Fentanyl Screen Ur Barbiturates Screen Ur Phencyclidine Scrn Ur Amphetamines Screen U Benzodiazepines Scrn Urine Cocaine Screen U Marijuana (THC) Screen Ethyl Alcohol Respiratory Panel [place] Adenovirus (Rapid PCR) B.pert (TEM-PCR) B.parapertussis DNA PCR C. pneumoniae DNA (PCR) Coronavirus OC43 (PCR) Coronavirus HKU1 (PCR) Coronavirus 229E (PCR) Coronavirus NL63 (PCR) Human Metapneumovir PCR Influenza A (RT-PCR) Influenza B (RT-PCR) M. pneumoniae (PCR) Parainfluenza 1 (PCR) Parainfluenza 2 (PCR) Parainfluenza 3 (PCR) Parainfluenza 4 (PCR) RSV (PCR) Entero/Rhino (PCR) SARS-CoV-2 RNA (RT-PCR) 08/16/23 08/16/23 08/16/23 08:25 08:25 08:25 WBC RBC Hgb Hct MCV MCH MCHC RDW Plt Count MPV Immature Gran % (Auto) Neut % (Auto) Lymph % (Auto) [place] % (Auto) Eos % (Auto) Baso % (Auto) Lymph # (Auto) [place] # (Auto) Eos # (Auto) Baso # (Auto) Abs Immat Gran (auto) Absolute Neuts (auto) Absolute Nucleated RBC Nucleated RBC % (auto) Smear Tech's Comments Hold Purple Top Hold Blue Top O2 Saturation ABG pH at Pt Temp ABG pCO2 at Pt Temp ABG pO2 at Pt Temp ABG HCO3 ABG Base Excess (Actual) VBG pH VBG pCO2 VBG pO2 VBG HCO3 VBG O2 Saturation VBG Base Excess Sodium Potassium Chloride Carbon Dioxide Anion Gap BUN Creatinine Estim Creat Clear Calc Estimated GFR POC Glucose Random Glucose Lactic Acid Lactic Acid F/U @ 2Hr Lactic Acid F/U @ 4Hr Calcium Phosphorus Magnesium Total Bilirubin Direct Bilirubin AST ALT Alkaline Phosphatase Total Creatine Kinase Troponin I High Sens Total Protein Albumin Lipase TSH Free T4 Urine Color Urine Appearance Urine pH Ur Specific [place] Urine Protein Urine Glucose (UA) Urine Ketones Urine Blood Urine Nitrite Ur Leukocyte Esterase Urine RBC Urine WBC Ur Squamous Epith Cells Urine Bacteria Hyaline Casts Urine Test CSF Tube Number 2 CSF Volume 1.0 1.0 CSF Appearance CLEAR CLEAR CSF Color COLORLESS CSF WBC CSF RBC CSF Lymphocytes CSF Monocytes % CSF Appearance (b) CSF Glucose CSF Total Protein Vancomycin Trough Urine Opiates Screen Urine Fentanyl Screen Ur Barbiturates Screen Ur Phencyclidine Scrn Ur Amphetamines Screen U Benzodiazepines Scrn Urine Cocaine Screen U Marijuana (THC) Screen Ethyl Alcohol Respiratory Panel [place] Adenovirus (Rapid PCR) B.pert (TEM-PCR) B.parapertussis DNA PCR C. pneumoniae DNA (PCR) Coronavirus OC43 (PCR) Coronavirus HKU1 (PCR) Coronavirus 229E (PCR) Coronavirus NL63 (PCR) Human Metapneumovir PCR Influenza A (RT-PCR) Influenza B (RT-PCR) M. pneumoniae (PCR) Parainfluenza 1 (PCR) Parainfluenza 2 (PCR) Parainfluenza 3 (PCR) Parainfluenza 4 (PCR) RSV (PCR) Entero/Rhino (PCR) SARS-CoV-2 RNA (RT-PCR) 08/16/23 08/16/23 08/16/23 08:25 08:25 08:25 WBC RBC Hgb Hct MCV MCH MCHC RDW Plt Count MPV Immature Gran % (Auto) Neut % (Auto) Lymph % (Auto) [place] % (Auto) Eos % (Auto) Baso % (Auto) Lymph # (Auto) [place] # (Auto) Eos # (Auto) Baso # (Auto) Abs Immat Gran (auto) Absolute Neuts (auto) Absolute Nucleated RBC Nucleated RBC % (auto) Smear Tech's Comments Hold Purple Top Hold Blue Top O2 Saturation ABG pH at Pt Temp ABG pCO2 at Pt Temp ABG pO2 at Pt Temp ABG HCO3 ABG Base Excess (Actual) VBG pH VBG pCO2 VBG pO2 VBG HCO3 VBG O2 Saturation VBG Base Excess Sodium Potassium Chloride Carbon Dioxide Anion Gap BUN Creatinine Estim Creat Clear Calc Estimated GFR POC Glucose Random Glucose Lactic Acid Lactic Acid F/U @ 2Hr Lactic Acid F/U @ 4Hr Calcium Phosphorus Magnesium Total Bilirubin Direct Bilirubin AST ALT Alkaline Phosphatase Total Creatine Kinase Troponin I High Sens Total Protein Albumin Lipase TSH Free T4 Urine Color Urine Appearance Urine pH Ur Specific [place] Urine Protein Urine Glucose (UA) Urine Ketones Urine Blood Urine Nitrite Ur Leukocyte Esterase Urine RBC Urine WBC Ur Squamous Epith Cells Urine Bacteria Hyaline Casts Urine Test CSF Tube Number CSF Volume CSF Appearance CSF Color COLORLESS CSF WBC 2 3 CSF RBC 22 14 CSF Lymphocytes 100 CSF Monocytes % CSF Appearance (b) CSF Glucose CSF Total Protein Vancomycin Trough Urine Opiates Screen Urine Fentanyl Screen Ur Barbiturates Screen Ur Phencyclidine Scrn Ur Amphetamines Screen U Benzodiazepines Scrn Urine Cocaine Screen U Marijuana (THC) Screen Ethyl Alcohol Respiratory Panel [place] Adenovirus (Rapid PCR) B.pert (TEM-PCR) B.parapertussis DNA PCR C. pneumoniae DNA (PCR) Coronavirus OC43 (PCR) Coronavirus HKU1 (PCR) Coronavirus 229E (PCR) Coronavirus NL63 (PCR) Human Metapneumovir PCR Influenza A (RT-PCR) Influenza B (RT-PCR) M. pneumoniae (PCR) Parainfluenza 1 (PCR) Parainfluenza 2 (PCR) Parainfluenza 3 (PCR) Parainfluenza 4 (PCR) RSV (PCR) Entero/Rhino (PCR) SARS-CoV-2 RNA (RT-PCR) 08/16/23 08/16/23 08/16/23 08:25 08:25 08:25 WBC RBC Hgb Hct MCV MCH MCHC RDW Plt Count MPV Immature Gran % (Auto) Neut % (Auto) Lymph % (Auto) [place] % (Auto) Eos % (Auto) Baso % (Auto) Lymph # (Auto) [place] # (Auto) Eos # (Auto) Baso # (Auto) Abs Immat Gran (auto) Absolute Neuts (auto) Absolute Nucleated RBC Nucleated RBC % (auto) Smear Tech's Comments Hold Purple Top Hold Blue Top O2 Saturation ABG pH at Pt Temp ABG pCO2 at Pt Temp ABG pO2 at Pt Temp ABG HCO3 ABG Base Excess (Actual) VBG pH VBG pCO2 VBG pO2 VBG HCO3 VBG O2 Saturation VBG Base Excess Sodium Potassium Chloride Carbon Dioxide Anion Gap BUN Creatinine Estim Creat Clear Calc Estimated GFR POC Glucose Random Glucose Lactic Acid Lactic Acid F/U @ 2Hr Lactic Acid F/U @ 4Hr Calcium Phosphorus Magnesium Total Bilirubin Direct Bilirubin AST ALT Alkaline Phosphatase Total Creatine Kinase Troponin I High Sens Total Protein Albumin Lipase TSH Free T4 Urine Color Urine Appearance Urine pH Ur Specific [place] Urine Protein Urine Glucose (UA) Urine Ketones Urine Blood Urine Nitrite Ur Leukocyte Esterase Urine RBC Urine WBC Ur Squamous Epith Cells Urine Bacteria Hyaline Casts Urine Test CSF Tube Number CSF Volume CSF Appearance CSF Color CSF WBC CSF RBC CSF Lymphocytes 83 CSF Monocytes % 17 CSF Appearance (b) Cancelled Clear, Colorless CSF Glucose Cancelled 96 CSF Total Protein 28.6 Vancomycin Trough Urine Opiates Screen POSITIVE H Urine Fentanyl Screen POSITIVE H Ur Barbiturates Screen Not Detected Ur Phencyclidine Scrn Not Detected Ur Amphetamines Screen Not Detected U Benzodiazepines Scrn POSITIVE H Urine Cocaine Screen POSITIVE H U Marijuana (THC) Screen POSITIVE H Ethyl Alcohol Respiratory Panel [place] Adenovirus (Rapid PCR) B.pert (TEM-PCR) B.parapertussis DNA PCR C. pneumoniae DNA (PCR) Coronavirus OC43 (PCR) Coronavirus HKU1 (PCR) Coronavirus 229E (PCR) Coronavirus NL63 (PCR) Human Metapneumovir PCR Influenza A (RT-PCR) Influenza B (RT-PCR) M. pneumoniae (PCR) Parainfluenza 1 (PCR) Parainfluenza 2 (PCR) Parainfluenza 3 (PCR) Parainfluenza 4 (PCR) RSV (PCR) Entero/Rhino (PCR) SARS-CoV-2 RNA (RT-PCR) 08/16/23 08/16/23 08/16/23 09:46 09:50 12:59 WBC RBC Hgb Hct MCV MCH MCHC RDW Plt Count MPV Immature Gran % (Auto) Neut % (Auto) Lymph % (Auto) [place] % (Auto) Eos % (Auto) Baso % (Auto) Lymph # (Auto) [place] # (Auto) Eos # (Auto) Baso # (Auto) Abs Immat Gran (auto) Absolute Neuts (auto) Absolute Nucleated RBC Nucleated RBC % (auto) Smear Tech's Comments Hold Purple Top Hold Blue Top O2 Saturation ABG pH at Pt Temp ABG pCO2 at Pt Temp ABG pO2 at Pt Temp ABG HCO3 ABG Base Excess (Actual) VBG pH VBG pCO2 VBG pO2 VBG HCO3 VBG O2 Saturation VBG Base Excess Sodium Potassium Chloride Carbon Dioxide Anion Gap BUN Creatinine Estim Creat Clear Calc Estimated GFR POC Glucose Random Glucose Lactic Acid Lactic Acid F/U @ 2Hr 2.3 H* Lactic Acid F/U @ 4Hr 3.1 H* Calcium Phosphorus Magnesium Total Bilirubin Direct Bilirubin AST ALT Alkaline Phosphatase Total Creatine Kinase Troponin I High Sens Total Protein Albumin Lipase TSH 0.70 Free T4 1.10 Urine Color Urine Appearance Urine pH Ur Specific [place] Urine Protein Urine Glucose (UA) Urine Ketones Urine Blood Urine Nitrite Ur Leukocyte Esterase Urine RBC Urine WBC Ur Squamous Epith Cells Urine Bacteria Hyaline Casts Urine Test CSF Tube Number CSF Volume CSF Appearance CSF Color CSF WBC CSF RBC CSF Lymphocytes CSF Monocytes % CSF Appearance (b) CSF Glucose CSF Total Protein Vancomycin Trough Urine Opiates Screen Urine Fentanyl Screen Ur Barbiturates Screen Ur Phencyclidine Scrn Ur Amphetamines Screen U Benzodiazepines Scrn Urine Cocaine Screen U Marijuana (THC) Screen Ethyl Alcohol Respiratory Panel [place] See Note Adenovirus (Rapid PCR) Not Detected B.pert (TEM-PCR) Not Detected B.parapertussis DNA PCR Not Detected C. pneumoniae DNA (PCR) Not Detected Coronavirus OC43 (PCR) Not Detected Coronavirus HKU1 (PCR) Not Detected Coronavirus 229E (PCR) Not Detected Coronavirus NL63 (PCR) Not Detected Human Metapneumovir PCR Not Detected Influenza A (RT-PCR) Not Detected Influenza B (RT-PCR) Not Detected M. pneumoniae (PCR) Not Detected Parainfluenza 1 (PCR) Not Detected Parainfluenza 2 (PCR) Not Detected Parainfluenza 3 (PCR) Not Detected Parainfluenza 4 (PCR) Not Detected RSV (PCR) Not Detected Entero/Rhino (PCR) Not Detected SARS-CoV-2 RNA (RT-PCR) Not Detected 08/17/23 08/17/23 08/17/23 04:43 04:47 Unknown WBC 15.6 H RBC 4.29 Hgb 13.7 Hct 41.3 MCV 96.3 MCH 31.9 MCHC 33.2 RDW 13.1 Plt Count 266 D MPV 11.5 Immature Gran % (Auto) 0.3 Neut % (Auto) 73.5 H Lymph % (Auto) 15.9 L [place] % (Auto) 10.1 Eos % (Auto) 0.0 Baso % (Auto) 0.2 Lymph # (Auto) 2.5 [place] # (Auto) 1.6 H Eos # (Auto) 0.0 Baso # (Auto) 0.0 Abs Immat Gran (auto) 0.04 H Absolute Neuts (auto) 11.5 H Absolute Nucleated RBC 0.000 Nucleated RBC % (auto) 0.0 Smear Tech's Comments Hold Purple Top Hold Blue Top O2 Saturation ABG pH at Pt Temp ABG pCO2 at Pt Temp ABG pO2 at Pt Temp ABG HCO3 ABG Base Excess (Actual) VBG pH 7.46 H VBG pCO2 24 VBG pO2 125 VBG HCO3 17 L VBG O2 Saturation 99.0 VBG Base Excess -4.6 Sodium 140 Potassium 4.1 D Chloride 113 H Carbon Dioxide 15 L Anion Gap 16 BUN 16 Creatinine 1.06 Estim Creat Clear Calc 76.1 Estimated GFR 59 POC Glucose Random Glucose 158 H Lactic Acid Lactic Acid F/U @ 2Hr Lactic Acid F/U @ 4Hr Calcium 8.2 L D Phosphorus 3.1 Magnesium 2.4 Total Bilirubin 0.4 Direct Bilirubin AST 397 H ALT 135 H Alkaline Phosphatase 53 Total Creatine Kinase Troponin I High Sens Total Protein 6.1 L Albumin 3.2 L Lipase TSH Free T4 Urine Color Urine Appearance Urine pH Ur Specific [place] Urine Protein Urine Glucose (UA) Urine Ketones Urine Blood Urine Nitrite Ur Leukocyte Esterase Urine RBC Urine WBC Ur Squamous Epith Cells Urine Bacteria Hyaline Casts Urine Test NEGATIVE CSF Tube Number CSF Volume CSF Appearance CSF Color CSF WBC CSF RBC CSF Lymphocytes CSF Monocytes % CSF Appearance (b) CSF Glucose CSF Total Protein Vancomycin Trough Urine Opiates Screen Urine Fentanyl Screen Ur Barbiturates Screen Ur Phencyclidine Scrn Ur Amphetamines Screen U Benzodiazepines Scrn Urine Cocaine Screen U Marijuana (THC) Screen Ethyl Alcohol Respiratory Panel [place] Adenovirus (Rapid PCR) B.pert (TEM-PCR) B.parapertussis DNA PCR C. pneumoniae DNA (PCR) Coronavirus OC43 (PCR) Coronavirus HKU1 (PCR) Coronavirus 229E (PCR) Coronavirus NL63 (PCR) Human Metapneumovir PCR Influenza A (RT-PCR) Influenza B (RT-PCR) M. pneumoniae (PCR) Parainfluenza 1 (PCR) Parainfluenza 2 (PCR) Parainfluenza 3 (PCR) Parainfluenza 4 (PCR) RSV (PCR) Entero/Rhino (PCR) SARS-CoV-2 RNA (RT-PCR) 08/18/23 08/18/23 04:28 04:34 WBC 13.7 H RBC 3.88 L Hgb 12.4 Hct 37.9 MCV 97.7 MCH 32.0 MCHC 32.7 RDW 13.2 Plt Count 250 MPV 11.1 Immature Gran % (Auto) 0.4 Neut % (Auto) 58.7 Lymph % (Auto) 32.7 [place] % (Auto) 7.9 Eos % (Auto) 0.1 Baso % (Auto) 0.2 Lymph # (Auto) 4.5 [place] # (Auto) 1.1 Eos # (Auto) 0.0 Baso # (Auto) 0.0 Abs Immat Gran (auto) 0.05 H Absolute Neuts (auto) 8.0 Absolute Nucleated RBC 0.000 Nucleated RBC % (auto) 0.0 Smear Tech's Comments VERIFIED Hold Purple Top Hold Blue Top O2 Saturation ABG pH at Pt Temp ABG pCO2 at Pt Temp ABG pO2 at Pt Temp ABG HCO3 ABG Base Excess (Actual) VBG pH 7.50 H VBG pCO2 32 VBG pO2 47 VBG HCO3 25 VBG O2 Saturation 80.0 VBG Base Excess 2.8 Sodium 143 Potassium 4.0 Chloride 111 H Carbon Dioxide 20 L Anion Gap 16 BUN 12 Creatinine 0.79 Estim Creat Clear Calc 108.0 Estimated GFR > 60 POC Glucose Random Glucose 99 Lactic Acid Lactic Acid F/U @ 2Hr Lactic Acid F/U @ 4Hr Calcium 8.5 Phosphorus 2.8 Magnesium 2.5 Total Bilirubin 0.4 Direct Bilirubin AST 296 H ALT 110 H Alkaline Phosphatase 62 Total Creatine Kinase 12462 H Troponin I High Sens Total Protein 5.5 L Albumin 3.0 L Lipase TSH Free T4 Urine Color Urine Appearance Urine pH Ur Specific [place] Urine Protein Urine Glucose (UA) Urine Ketones Urine Blood Urine Nitrite Ur Leukocyte Esterase Urine RBC Urine WBC Ur Squamous Epith Cells Urine Bacteria Hyaline Casts Urine Test CSF Tube Number CSF Volume CSF Appearance CSF Color CSF WBC CSF RBC CSF Lymphocytes CSF Monocytes % CSF Appearance (b) CSF Glucose CSF Total Protein Vancomycin Trough 10.1 Urine Opiates Screen Urine Fentanyl Screen Ur Barbiturates Screen Ur Phencyclidine Scrn Ur Amphetamines Screen U Benzodiazepines Scrn Urine Cocaine Screen U Marijuana (THC) Screen Ethyl Alcohol Respiratory Panel [place] Adenovirus (Rapid PCR) B.pert (TEM-PCR) B.parapertussis DNA PCR C. pneumoniae DNA (PCR) Coronavirus OC43 (PCR) Coronavirus HKU1 (PCR) Coronavirus 229E (PCR) Coronavirus NL63 (PCR) Human Metapneumovir PCR Influenza A (RT-PCR) Influenza B (RT-PCR) M. pneumoniae (PCR) Parainfluenza 1 (PCR) Parainfluenza 2 (PCR) Parainfluenza 3 (PCR) Parainfluenza 4 (PCR) RSV (PCR) Entero/Rhino (PCR) SARS-CoV-2 RNA (RT-PCR) Assessment and Plan Final Anesthetic Review Family History of Problems with Anesthesia: No History of Problems with Anesthesia: No
--- NOTE | 2023-08-18 15:00 | PC.NURSE ---
pt to or for further debridement of L forearm by md romero. bedside report.
--- NOTE | 2023-08-18 16:12 | PM.OP ---
Brief Operative Note Date of Service: 08/18/23 Pre-op diagnosis: Left forearm compartment syndrome Post-op diagnosis: same Procedure: Irrigation and debridement left forearm Partial wound closure left forearm Surgeon: Devang Long MD Anesthesia: GETA and regional Was an Sheet Metal Erector used for this Procedure?: Yes Sheet Metal Erector: Zackary Galvez Estimated blood loss (mL): 25 IV fluids (mL): 650 Pathology: none sent Condition: stable Disposition: PACU
--- NOTE | 2023-08-18 16:15 | W.PM.OPN ---
Operative Note Operative Note Date of Service: 08/17/23 Narrative: Date of Service: 08/17/23 Pre-op diagnosis: left forearm compartment syndrome Post-op diagnosis: same Procedure: left forearm fasciotomy 4 compartment Wound vac placement Surgeon: Devang Long MD Anesthesia: GETA Was an E Marketing Specialist used for this Procedure?: Yes E Marketing Specialist: Mary Beth Billings Estimated blood loss (mL): 40 IV fluids (mL): 800 Pathology: none sent Condition: stable Disposition: PACU Indications: this 33-year-old woman who was found down Monday a.m. and Narcan and but the paramedics and brought to the emergency room unresponsive. She was intubated. Over that night her her left forearm was noted to be swollen which worsened the following day and I was consulted. On exam she had a tense left forearm with elevated CPK and the decision was made to go to the operating room for emergent fasciotomy. Procedure in detail: patient brought to the operating room placed supine on the operative table prepped and draped in standard sterile fashion. Time-out was called to identify proper site proper procedure proper surgeon IV antibiotics per weight were administered. I began by making a incision from the distal radial aspect of the arm proximal to the antecubital fossa and obliquely over the antecubital fossa extending distally down to the ulnar aspect of the volar wrist. Once through the skin the fascia over the brachioradialis was identified and a curved tenotomy scissor was used to decompress the mobile wad. The brachioradialis appeared viable. Just ulnar to the brachioradialis the superficial branch of the radial nerve was identified and retracted along with the radial artery laterally. Pronator teres and the flexor carpi radialis were identified. The superficial flexor muscle mass was exposed and the overlying fascia was released. THere was pooching out of armas muscle. The median nerve was identified between the deep and superficial flexors and protected also retracting it medially. Between the radial artery and the median nerve the fascia over the deep flexor muscles was also incised. This was extended distally and proximally until complete release was achieved. The flexor carpi radialis was not healthy appearing. The superficial gflexors were also not healthy looking at the mid forwarm although distally they were. The same for the deep flexors. I then traced the median nerve up proximally and it was intact. I then traced proximally up into the antecubital fossa making sure to release the fascia not just distally but proximally as well I was happy with the release of the FDP of the deep volar and superficial compartments as well as the mobile wad. The brachial radialis was and mobile wad were full but appeared viable. The ECU was identified deep to the ulna and released off the ulsa. It was healthy appearing and I then palpated the dorsal part due compartment which was completely soft. I felt it was not necessary to make an additional incision. I then irrigated copiously and a radial pulse was dopplerable with brisk capillary refill. The ulnar pulse was also dopplerable. Axillary artery was dopplerable. I was not able to close the skin and a wound VAC dressing was applied with a Telfa nonadherent dressing covering the exposed tissue and the suction set at 75 mmHg. Patient was sent brought to the ICU in stable condition. There were no known complications.
--- NOTE | 2023-08-18 16:37 | W.PM.OPN ---
Operative Note Operative Note Date of Service: 08/18/23 Narrative: Date of Service: 08/18/23 Pre-op diagnosis: Left forearm compartment syndrome Post-op diagnosis: same Procedure: Irrigation and debridement left forearm Partial wound closure left forearm Surgeon: Devang Long MD Anesthesia: GETA and regional Was an Trench Shovel Operator used for this Procedure?: Yes Trench Shovel Operator: Zackary Galvez Estimated blood loss (mL): 25 IV fluids (mL): 650 Pathology: none sent Condition: stable Disposition: PACU Procedure in detail: Patient brought the operating room and a wound VAC was removed. A time-out was called in for proper site procedure proper surgeon. I began by irrigating the open forearm wound. I then examined the tissue. The FCR was nonviable and the muscle belly was . This was removed. Deep to this the superficial flexors were largely viable with pink bleeding healthy muscle belly and reactive to stimulation with cautery. Deep to this the deep and dorsal aspect of some of the superficial flexor musculature was less healthy appearing although there was some bleeding. I did not excise this tissue completely even though there was mixed reactivity to electrocautery. I irrigated copiously. Again the median nerve was identified and intact and healthy appearing. There was a palpable radial pulse although not strong but dopplerable and the hand was nonswollen and with brisk capillary refill. Proximally the tissues appeared healthy including the pronator teres and the brachioradialis suyperficially but had a mixed picture deeper with some intact and healthy-appearing tissue but some of the deep muscle tissue did not appear healthy. Again I irrigated this copiously and did not remove additional tissue was I felt there was adequate viable tissue remaining. I irrigated copisouly and closed the proximal half of the wound. A wound vac was applied with a telfa dressing and the arm was splinted. Patient was brought back to the ICU in stable condition. There were no known complications.
--- NOTE | 2023-08-18 16:44 | PC.NURSE ---
0430 pt returns from surgery, bedside report. pt repositioned, changed. vss. placed in position of comfort.
--- NOTE | 2023-08-18 20:26 | PM.CCPN ---
Subjective Subjective Date of Service: 08/18/23 Interval History: 33-year-old female multi substance abuser came in with cocaine induced encephalopathy with tashia agitated delirium and found unresponsive with crush injury in left upper extremity resulting in compartment syndrome and had fasciotomy done with good measure of success restoring adequate circulation and perfusion to the arm and corroborated by vascular surgery The rhabdomyolysis caused acute renal failure which is now completely resolved and in addition she had and an acute cardiomyopathy with a 20-25% ejection fraction and I believe they are still some islands of early recovery of myocardial contractility and more importantly her persistent tachycardia never below 120 now has a heart rate in the 80s still remains on the ventilator for pain control and for support in relation to her congestive cardiomyopathy and that seems to be all working out very successfully FiO2 requirements reduced to 35% and minute ventilatory requirements also significantly reduced to the point where we can probably wean and potentially extubate within 24 hours Critical Care Time (minutes): 45 Physical Exam Vital Signs: Vital Signs: Last Vital Signs Temp 99.1 F 08/18/23 20:00 Pulse 102 H 08/18/23 20:00 Resp 14 08/18/23 20:00 BP 104/67 08/18/23 20:00 Pulse Ox 97 08/18/23 20:00 O2 Del Method Mechanical Ventil ation 08/18/23 20:00 O2 Flow Rate 65 08/16/23 11:21 FiO2 35 08/18/23 20:00 BMI result Body Mass Index 29.0 Excellent unsupported blood pressures and remains in normal sinus rhythm with excellent laboratory results no active metabolic issues There is some persistent rales at the left base otherwise no adventitious sounds no accessory muscle use Abdomen is benign with no organomegaly Cardiac exam with somewhat improved bilateral carotid upstrokes no neck vein distension and she is otherwise warm well perfused with no acrocyanosis Objective Data Labs 08/18/23 04:28 08/18/23 04:28 Labs: Laboratory Results - last 24 hr 08/18/23 08/18/23 04:28 04:34 WBC 13.7 H RBC 3.88 L Hgb 12.4 Hct 37.9 MCV 97.7 MCH 32.0 MCHC 32.7 RDW 13.2 Plt Count 250 MPV 11.1 Immature Gran % (Auto) 0.4 Neut % (Auto) 58.7 Lymph % (Auto) 32.7 [place] % (Auto) 7.9 Eos % (Auto) 0.1 Baso % (Auto) 0.2 Lymph # (Auto) 4.5 [place] # (Auto) 1.1 Eos # (Auto) 0.0 Baso # (Auto) 0.0 Abs Immat Gran (auto) 0.05 H Absolute Neuts (auto) 8.0 Absolute Nucleated RBC 0.000 Nucleated RBC % (auto) 0.0 Smear Tech's Comments VERIFIED VBG pH 7.50 H VBG pCO2 32 VBG pO2 47 VBG HCO3 25 VBG O2 Saturation 80.0 VBG Base Excess 2.8 Sodium 143 Potassium 4.0 Chloride 111 H Carbon Dioxide 20 L Anion Gap 16 BUN 12 Creatinine 0.79 Estim Creat Clear Calc 108.0 Estimated GFR > 60 Random Glucose 99 Calcium 8.5 Phosphorus 2.8 Magnesium 2.5 Total Bilirubin 0.4 AST 296 H ALT 110 H Alkaline Phosphatase 62 Total Creatine Kinase 25818 H Total Protein 5.5 L Albumin 3.0 L Vancomycin Trough 10.1 Microbiology Microbiology Results: Microbiology 08/17/23 05:25 Arm Gram Stain - Final 08/17/23 05:25 Arm Routine Culture - Preliminary No growth to date. 08/16/23 07:47 Blood - Venous Blood Culture - Preliminary No growth after 48 hours. 08/16/23 07:22 Blood - Venous Blood Culture - Preliminary No growth after 48 hours. 08/16/23 08:25 Cerebrospinal Fluid Gram Stain - Final 08/16/23 08:25 Cerebrospinal Fluid CSF Examination - Final 08/16/23 08:25 Cerebrospinal Fluid Fluid Description - Final 08/16/23 08:25 Cerebrospinal Fluid CSF Culture - Preliminary No growth after 2 days Progress Note: A&P Assessment and plan (1) Compartment syndrome of forearm: Status: Acute (2) Secondary rhabdomyolysis: Status: Acute (3) Aspiration pneumonia: Status: Acute (4) Seizure cerebral: Status: Acute (5) Secondary nonischemic congestive cardiomyopathy: Status: Acute (6) 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: Status: Acute (7) Pneumonia involving left lung: Status: Acute (8) Rhabdomyolysis: Status: Acute (9) Troponin I above reference range: Status: Acute (10) Acidosis, lactic: Status: Acute (11) Acute renal failure: Status: Acute (12) Fever: Status: Acute (13) Altered mental status: Status: Acute (14) Substance abuse: Status: Acute (15) Upper respiratory tract infection: Status: Acute Plan The plan is to keep her sedated and intubated overnight and then start the weaning process of the sedation in the morning because I think were passed the state of delirium and/or withdrawal and we did initiate methadone and hoping to wean her on to a full methadone program Quality Stroke Does the patient have a stroke diagnosis?: No VTE Prior VTE?: No VTE Risk Level:: Medical - moderate - high VTE Device Contraindication: N/A - Device Ordered VTE Drug Contraindication: Treatment Not Indicated
[2023-08-19] VITALS (28 sets, daily range): BP systolic 92–136; BP diastolic 57–97; PULSE 64–127; RESP 12–29; TEMP 34.6–38.2; O2SAT 91–98; BMI 29.8
[2023-08-19 05:40] LABS: Venous Blood Gas Refer to POC result
[2023-08-19 06:08] LABS: Basophils Percent Auto 0.3 % (0-2); Eosinophils Percent Auto 0.1 % (0-4); Hematocrit 32.6 % (37.0-47.0); Hemoglobin 10.7 g/dl (12.0-16.0); Imm Gran Abs Auto 0.09 X10*3/uL (0.00-0.03); Imm Gran Pct Auto 0.7 % (0.0-0.4); Lymphocytes Absolute Auto 5.8 X10*3/uL (1.2-4.9); MANUAL DIFF FLAG SCAN; Mean Corpuscular HGB Conc 32.8 g/dl (31.0-35.0); Mean Corpuscular Hemoglobin 32.1 pg (27.0-33.0); Mean Corpuscular Volume 97.9 fL (80.0-98.0); Mean Platelet Volume 11.3 fL (9.4-12.3); Monocytes Absolute Auto 0.9 X10*3/uL (0.1-1.2); Monocytes Percent Auto 6.4 % (2-11); Neutrophils Percent Auto 50.5 % (45-73); Platelet Count 225 X10*3/uL (160-400); Red Blood Count 3.33 X10*6/uL (4.20-5.50); SCAN SMEAR FLAG 1; White Blood Count 13.8 X10*3/uL (4.8-10.8)
[2023-08-19 06:26] LABS: Alanine Aminotransferase 96 U/L (0-31); Albumin Level 2.8 g/dL (3.5-5.0); Alkaline Phosphatase 46 U/L (39-117); Anion Gap 13 (12-20); Aspartate Amino Transferase 247 U/L (5-31); Bilirubin Total 0.6 mg/dL (0.0-1.0); Blood Urea Nitrogen 12 mg/dL (9-16); Calcium 8.3 mg/dL (8.4-10.2); Carbon Dioxide 24 mmol/L (22-29); Chloride 110 mmol/L (96-108); Creatinine Clr Calc Pharmacy 121.6; Estimated Glomerular Filt Rate > 60; Glucose Random 87 mg/dL (60-115); Magnesium 2.3 mg/dL (1.6-2.6); Phosphorus 1.9 mg/dL (2.7-4.5); Potassium 3.8 mmol/L (3.3-5.1); Sodium 143 mmol/L (135-145); Total Protein 5.3 g/dL (6.5-8.0)
[2023-08-19 06:37] LABS: SLIDE REVIEW VERIFIED
--- NOTE | 2023-08-19 07:41 | PM.PNORT ---
Subjective Subjective Date of Service: 08/19/23 Principal diagnosis: Intubated. No O/N events Physical Exam Vital Signs: Vital Signs: Last Vital Signs Temp 100.6 F H 08/19/23 07:00 Pulse 93 08/19/23 07:00 Resp 17 08/19/23 07:00 BP 106/61 08/19/23 07:00 Pulse Ox 96 08/19/23 07:00 O2 Del Method Mechanical Ventil ation 08/19/23 07:00 O2 Flow Rate 65 08/16/23 11:21 FiO2 35 08/19/23 07:00 BMI result Body Mass Index 29.8 Extrem: Other: Wound vac holding suction Compartments soft Hand warm Procedures Date of Service Date of Service: 08/19/23 Progress Note: A&P Assessment and plan (1) Compartment syndrome of forearm: Status: Acute Assessment and Plan: Stable with necrotic muscle in forearm but extent not yet fully determined. Return to OR tomorrow for debridement and wound vac change. Time Spent With Patient Time: Total time managing care of this patient today ____ minutes. Quality Stroke Does the patient have a stroke diagnosis?: No VTE Prior VTE?: No VTE Risk Level:: Medical - moderate - high VTE Device Contraindication: N/A - Device Ordered VTE Drug Contraindication: Treatment Not Indicated
[2023-08-19] MEDS: 0.9 % Sodium Chloride Flush 3 ML SYRINGE IVFLUSH (09:15)
--- NOTE | 2023-08-19 14:14 | PM.CCPN ---
Subjective Subjective Date of Service: 08/19/23 Interval History: 33-year-old female who was a multi substance abuser was found on the ground positive for cocaine and fentanyl developed a left upper extremity compartment syndrome requiring multiple visits to the OR for debridement following fasciotomy and placement of wound VAC she was encephalopathic in addition developed an acute cardiomyopathy with extensive akinesis of the ventricle which was already beginning to slowly return in areas but at best 25% ejection fraction along with extensive left lower lobe consolidation which could be partly infarct could be partly aspiration pneumonitis but today was extubated and has return of cognitive function and continues to slowly resolve from that standpoint but the initial septic dynamics are in much improved but resting heart rate still remained as high as 115 oxygen saturation 98% pressure is 122/85 and of 0 we initiated the methadone dose and program of course she has been on looking to get opiates for on the a pain in her left upper extremity which I believe is real but we have to be very very careful because of her addictive tendency Critical Care Time (minutes): 45 Physical Exam Vital Signs: Vital Signs: Last Vital Signs Temp 99.3 F 08/19/23 14:00 Pulse 97 08/19/23 14:00 Resp 26 H 08/19/23 14:00 BP 122/85 08/19/23 14:00 Pulse Ox 98 08/19/23 14:00 O2 Del Method Mechanical Ventil ation 08/19/23 14:00 O2 Flow Rate 65 08/16/23 11:21 FiO2 35 08/19/23 14:00 BMI result Body Mass Index 29.8 vital signs stable and cognitive function returned no focal neurologic problem cardiac exam with quiet precordium reduced but slightly improved bilateral carotid upstrokes no neck vein distension has failed swallow bedside swallow precluding use of oral medication lungs with coarse rhonchi left chest no other adventit ious sounds abdomen soft with no organomegaly Objective Data Labs 08/19/23 05:05 08/19/23 05:05 Labs: Laboratory Results - last 24 hr 08/19/23 08/19/23 05:05 05:16 WBC 13.8 H RBC 3.33 L Hgb 10.7 L Hct 32.6 L MCV 97.9 MCH 32.1 MCHC 32.8 RDW 13.0 Plt Count 225 MPV 11.3 Immature Gran % (Auto) 0.7 H Neut % (Auto) 50.5 Lymph % (Auto) 42.0 H [place] % (Auto) 6.4 Eos % (Auto) 0.1 Baso % (Auto) 0.3 Lymph # (Auto) 5.8 H [place] # (Auto) 0.9 Eos # (Auto) 0.0 Baso # (Auto) 0.0 Abs Immat Gran (auto) 0.09 H Absolute Neuts (auto) 7.0 Absolute Nucleated RBC 0.000 Nucleated RBC % (auto) 0.0 Smear Tech's Comments VERIFIED VBG pH 7.58 H VBG pCO2 30 VBG pO2 47 VBG HCO3 28 H VBG O2 Saturation 81.0 VBG Base Excess 7.1 Sodium 143 Potassium 3.8 Chloride 110 H Carbon Dioxide 24 Anion Gap 13 BUN 12 Creatinine 0.71 Estim Creat Clear Calc 121.6 Estimated GFR > 60 Random Glucose 87 Calcium 8.3 L Phosphorus 1.9 L Magnesium 2.3 Total Bilirubin 0.6 AST 247 H ALT 96 H Alkaline Phosphatase 46 Total Creatine Kinase 04940 H Total Protein 5.3 L Albumin 2.8 L Microbiology Microbiology Results: Microbiology 08/17/23 05:25 Arm Gram Stain - Final 08/17/23 05:25 Arm Routine Culture - Final No growth. 08/16/23 08:25 Cerebrospinal Fluid Gram Stain - Final 08/16/23 08:25 Cerebrospinal Fluid CSF Examination - Final 08/16/23 08:25 Cerebrospinal Fluid Fluid Description - Final 08/16/23 08:25 Cerebrospinal Fluid CSF Culture - Final No growth after 3 days. 08/16/23 07:47 Blood - Venous Blood Culture - Preliminary No growth after 48 hours. 08/16/23 07:22 Blood - Venous Blood Culture - Preliminary No growth after 48 hours. Progress Note: A&P Assessment and plan (1) Compartment syndrome of forearm: Status: Acute (2) Secondary rhabdomyolysis: Status: Acute (3) Aspiration pneumonia: Status: Acute (4) Seizure cerebral: Status: Acute (5) Secondary nonischemic congestive cardiomyopathy: Status: Acute (6) 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: Status: Acute (7) Pneumonia involving left lung: Status: Acute (8) Rhabdomyolysis: Status: Acute (9) Troponin I above reference range: Status: Acute (10) Acidosis, lactic: Status: Acute (11) Acute renal failure: Status: Acute (12) Fever: Status: Acute (13) Altered mental status: Status: Acute (14) Substance abuse: Status: Acute (15) Upper respiratory tract infection: Status: Acute (16) Cough: Status: Acute (17) Respiratory infection: Status: Acute (18) Wheezing: Status: Acute (19) Dysuria: Status: Acute (20) Flank pain: Status: Acute Assessment and Plan: at this point I am going to try to cut back on the opiate use resort to a alternative pain medications and make sure she has got IV maintenance fluids going Quality Stroke Does the patient have a stroke diagnosis?: No VTE Prior VTE?: No VTE Risk Level:: Medical - moderate - high VTE Device Contraindication: N/A - Device Ordered VTE Drug Contraindication: Treatment Not Indicated
--- NOTE | 2023-08-19 15:50 | MHC.RECOVRN ---
T/w in to see pt to check on pain management. Family at bedside stating she has been in pain. Pt appears very uncomfortable at this time, diaphoretic, grimacing, stating pain is bad . Discussed with primary RN and Nita Swan APRN. Current recommendation is to increase methadone to 45 mg daily with 10mg sched at bedtime, in addition to scheduled pain medications. Bull Float Finisher made aware of uncontrolled pain and recommendations from recovery.
[2023-08-19 18:14] LABS: Vancomycin Random 11.6 mcg/mL (15-20)
[2023-08-20] VITALS (15 sets, daily range): BP systolic 97–128; BP diastolic 54–96; PULSE 58–103; RESP 10–20; TEMP 36.3–37.5; O2SAT 92–98; BMI 29.3
[2023-08-20 06:17] LABS: Basophils Percent Auto 0.3 % (0-2); Eosinophils Absolute Auto 0.1 X10*3/uL (0.0-0.4); Eosinophils Percent Auto 0.6 % (0-4); Hematocrit 29.1 % (37.0-47.0); Hemoglobin 9.6 g/dl (12.0-16.0); Imm Gran Abs Auto 0.05 X10*3/uL (0.00-0.03); Imm Gran Pct Auto 0.5 % (0.0-0.4); Lymphocytes Absolute Auto 5.5 X10*3/uL (1.2-4.9); Lymphocytes Percent Auto 50.6 % (20-40); MANUAL DIFF FLAG SCAN; Mean Corpuscular Hemoglobin 31.8 pg (27.0-33.0); Mean Corpuscular Volume 96.4 fL (80.0-98.0); Mean Platelet Volume 11.5 fL (9.4-12.3); Monocytes Absolute Auto 0.8 X10*3/uL (0.1-1.2); Monocytes Percent Auto 7.6 % (2-11); Neutrophils Absolute Auto 4.4 x10*3/uL (2.0-8.3); Neutrophils Percent Auto 40.4 % (45-73); Platelet Count 195 X10*3/uL (160-400); Red Blood Count 3.02 X10*6/uL (4.20-5.50); Red Cell Distribution Width 12.7 % (11.0-16.0); SCAN SMEAR FLAG 1; White Blood Count 10.9 X10*3/uL (4.8-10.8)
[2023-08-20 06:19] LABS: Venous Blood Gas Refer to POC result
[2023-08-20 06:36] LABS: Alanine Aminotransferase 91 U/L (0-31); Albumin Level 3.2 g/dL (3.5-5.0); Alkaline Phosphatase 37 U/L (39-117); Anion Gap 14 (12-20); Aspartate Amino Transferase 209 U/L (5-31); Blood Urea Nitrogen 15 mg/dL (9-16); Calcium 8.4 mg/dL (8.4-10.2); Carbon Dioxide 23 mmol/L (22-29); Chloride 110 mmol/L (96-108); Creatinine Clr Calc Pharmacy 126.1; Estimated Glomerular Filt Rate > 60; Glucose Random 81 mg/dL (60-115); Magnesium 2.4 mg/dL (1.6-2.6); Phosphorus 2.6 mg/dL (2.7-4.5); Potassium 3.3 mmol/L (3.3-5.1); Sodium 144 mmol/L (135-145); Total Protein 5.2 g/dL (6.5-8.0)
[2023-08-20 06:54] LABS: SLIDE REVIEW VERIFIED
--- NOTE | 2023-08-20 10:37 | MHC.RECOVRN ---
Addendum entered by Blanca Chen RN 08/20/23 18:38: This ad copy writer met with patient after receiving second addiction consult stating pt interested in MTD. Pt denies cravings and withdrawal at this time, pt sedated, slow to answer questions. Pt has no further questions at this time. Original Note: This ad copy writer met with patient, patient admitted, AMS, rhabdomyolosis. Pt reports 8/10 pain currently. Pt resting in bed, family at bedside. This ad copy writer reviewed findings with Joi CLAY DRY PRESS HELPER. CLAY DRY PRESS HELPER reports pt is NPO due to pending surgery, pt failed swallow test 08/19, MTD being held due to NPO and failed swallow test. CLAY DRY PRESS HELPER reports will be giving Dilaudid shortly for pain mgmt.
--- NOTE | 2023-08-20 13:12 | HO.ANESPROP2 ---
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 (Acute) Pneumonia involving left lung (Acute) Rhabdomyolysis (Acute) Troponin I above reference range (Acute) Acidosis, lactic (Acute) Acute renal failure (Acute) Fever (Acute) Altered mental status (Acute) Substance abuse (Acute) Upper respiratory tract infection (Acute) Flank pain (Acute) Dysuria (Acute) Wheezing (Acute) Respiratory infection (Acute) Cough (Acute) Past Medical History Medical History Substance abuse Family History Family history of problems with anesthesia: No Surgical History History of Problems with Anesthesia: No Social History Social History Household Members: Family Housing: House Do you presently have visiting nurse or other home services: No Unable to assess alcohol history related to: Unable to respond Alcohol intake: current Alcohol intake frequency: 0-2 drinks per day Patient Tobacco Use Status: Current someday Tobacco user Use of substances other than those prescribed or required for medical reasons: Yes Substance Use Type: Crack/Cocaine Substance Use Frequency: Chronic Longstanding Last Used Substance: Unknown Currently Displaying Signs/Symptoms of Drug Intoxication Withdrawal: No Advance Directives: No Patient : No : No Meds Allergies Allergy/AdvReac Type Severity Reaction Status Date / Time No Known Allergies Allergy Verified 04/24/23 13:48 Active Medications: Current Medications Hydrocortisone Sodium Succinate (Hydrocortisone Sod Succ/Pf 100 Mg Vial) 50 mg IVPUSH BID@0630,1630 JEANINE Last Admin: 08/20/23 05:32 Dose: 50 mg Hydromorphone HCl (Hydromorphone Hcl 2 Mg/Ml Vial) 2 mg IVPUSH Q4H JEANINE; Protocol Last Admin: 08/20/23 08:11 Dose: 2 mg Hydromorphone HCl (Hydromorphone Hcl 1 Mg/Ml Syringe) 1 mg IVPUSH Q2H PRN; Protocol PRN Reason: Pain, Severe (Pain Scale 7-10) Last Admin: 08/20/23 10:20 Dose: 1 mg Levetiracetam (Keppra) 500 mg in 100 mls @ 400 mls/hr IV Q12H [facility] Last Infusion: 08/20/23 08:48 Dose: Infused Meropenem 1 gm/ Sodium (Chloride) 100 mls @ 200 mls/hr IV Q8H [facility] Last Infusion: 08/20/23 06:10 Dose: Infused Cefazolin Sodium/Dextrose (Ancef) 2 gm in 50 mls @ 100 mls/hr IV PREOP [facility] Stop: 08/20/23 23:00 Acetaminophen (Ofirmev) 1,000 mg in 100 mls @ 400 mls/hr IV Q12H [facility] Last Infusion: 08/20/23 04:20 Dose: Infused Vancomycin HCl 1,000 mg/ (Sodium Chloride) 270 mls @ 270 mls/hr IV Q8H [facility] Last Infusion: 08/20/23 12:22 Dose: Infused Ketorolac Tromethamine (Ketorolac Tromethamine 15 Mg/Ml Vial) 15 mg IVPUSH Q6H [facility] Stop: 08/20/23 16:01 Last Admin: 08/20/23 09:35 Dose: 15 mg Methadone HCl (Methadone Hcl 20 Mg/2 Ml Oral.Conc) 30 mg PO DAILY [facility] Last Admin: 08/20/23 10:57 Dose: Not Given Midazolam HCl (Midazolam Hcl/Pf 2 Mg/2 Ml Vial) 2 mg IVPUSH Q15M PRN PRN Reason: Ventilator synchrony Last Admin: 08/16/23 12:21 Dose: 2 mg Pantoprazole Sodium (Pantoprazole Sodium 40 Mg/10 Ml Vial) 40 mg IVPUSH BID@0630,1630 [facility] Last Admin: 08/20/23 05:32 Dose: 40 mg Pharmacy Consult (Consult Rx Vancomycin Dosing) 1 each MISCELLANE DAILY PRN PRN Reason: Consult order Sodium Chloride (0.9 % Sodium Chloride Flush 3 Ml Syringe) 3 ml IVFLUSH QSHIFT [facility] Last Admin: 08/20/23 08:14 Dose: Not Given Home Medications Medication Instructions Recorded Confirmed Last Taken Type No Known Home Meds 08/16/23 08/16/23 Unknown History Exam Exam Date and Time: August 20, 2023 1312 Height,Weight and Vital Signs: Height 5 ft 6 in Weight 82.3 kg Last Vital Signs Temp 99.3 F 08/20/23 12:00 Pulse 86 08/20/23 12:00 Resp 12 08/20/23 12:00 BP 113/75 08/20/23 12:00 Pulse Ox 95 08/20/23 12:00 O2 Del Method Nasal Cannula 08/20/23 12:00 O2 Flow Rate 2 08/20/23 12:00 FiO2 35 08/19/23 07:58 Pertinent Lab Results Pertinent Lab Results: Laboratory Tests 08/16/23 08/16/23 08/16/23 07:04 07:11 08:22 WBC 13.7 H RBC 5.02 D Hgb 16.0 D Hct 48.3 H D MCV 96.2 MCH 31.9 MCHC 33.1 RDW 13.0 Plt Count 373 D MPV 10.7 Immature Gran % (Auto) 1.4 H Neut % (Auto) 76.3 H Lymph % (Auto) 15.0 L [place] % (Auto) 7.1 Eos % (Auto) 0.0 Baso % (Auto) 0.2 Lymph # (Auto) 2.1 [place] # (Auto) 1.0 Eos # (Auto) 0.0 Baso # (Auto) 0.0 Abs Immat Gran (auto) 0.19 H Absolute Neuts (auto) 10.5 H Absolute Nucleated RBC 0.020 H Nucleated RBC % (auto) 0.1 Smear Tech's Comments Hold Purple Top SEE NOTE PT INR APTT Hold Blue Top SEE NOTE O2 Saturation 99.0 ABG pH at Pt Temp 7.37 ABG pCO2 at Pt Temp 23 L ABG pO2 at Pt Temp 199 H ABG HCO3 14 L ABG Base Excess (Actual) -9.1 VBG pH VBG pCO2 VBG pO2 VBG HCO3 VBG O2 Saturation VBG Base Excess Sodium 139 Potassium 5.7 H D Chloride 106 Carbon Dioxide 18 L Anion Gap 21 H BUN 30 H Creatinine 2.13 H Estim Creat Clear Calc 40.0 Estimated GFR 27 POC Glucose 123 H Random Glucose 119 H Lactic Acid 4.3 H* Lactic Acid F/U @ 2Hr Lactic Acid F/U @ 4Hr Calcium 9.6 Phosphorus Magnesium Total Bilirubin 0.4 Direct Bilirubin 0.2 AST 344 H ALT 114 H Alkaline Phosphatase 75 Total Creatine Kinase 05712 H Troponin I High Sens 346.8 H* Total Protein 8.2 H Albumin 4.8 Lipase 24 TSH Free T4 Urine Color Urine Appearance Urine pH Ur Specific [place] Urine Protein Urine Glucose (UA) Urine Ketones Urine Blood Urine Nitrite Ur Leukocyte Esterase Urine RBC Urine WBC Ur Squamous Epith Cells Urine Bacteria Hyaline Casts Urine Test CSF Tube Number CSF Volume CSF Appearance CSF Color CSF WBC CSF RBC CSF Lymphocytes CSF Monocytes % CSF Appearance (b) CSF Glucose CSF Total Protein Vancomycin Trough Random Vancomycin Urine Opiates Screen Urine Fentanyl Screen Ur Barbiturates Screen Ur Phencyclidine Scrn Ur Amphetamines Screen U Benzodiazepines Scrn Urine Cocaine Screen U Marijuana (THC) Screen Ethyl Alcohol < 10 Respiratory Panel [place] Adenovirus (Rapid PCR) B.pert (TEM-PCR) B.parapertussis DNA PCR C. pneumoniae DNA (PCR) Coronavirus OC43 (PCR) Coronavirus HKU1 (PCR) Coronavirus 229E (PCR) Coronavirus NL63 (PCR) Human Metapneumovir PCR Influenza A (RT-PCR) Influenza B (RT-PCR) M. pneumoniae (PCR) Parainfluenza 1 (PCR) Parainfluenza 2 (PCR) Parainfluenza 3 (PCR) Parainfluenza 4 (PCR) RSV (PCR) Entero/Rhino (PCR) SARS-CoV-2 RNA (RT-PCR) 08/16/23 08/16/23 08/16/23 08:25 08:25 08:25 WBC RBC Hgb Hct MCV MCH MCHC RDW Plt Count MPV Immature Gran % (Auto) Neut % (Auto) Lymph % (Auto) [place] % (Auto) Eos % (Auto) Baso % (Auto) Lymph # (Auto) [place] # (Auto) Eos # (Auto) Baso # (Auto) Abs Immat Gran (auto) Absolute Neuts (auto) Absolute Nucleated RBC Nucleated RBC % (auto) Smear Tech's Comments Hold Purple Top PT INR APTT Hold Blue Top O2 Saturation ABG pH at Pt Temp ABG pCO2 at Pt Temp ABG pO2 at Pt Temp ABG HCO3 ABG Base Excess (Actual) VBG pH VBG pCO2 VBG pO2 VBG HCO3 VBG O2 Saturation VBG Base Excess Sodium Potassium Chloride Carbon Dioxide Anion Gap BUN Creatinine Estim Creat Clear Calc Estimated GFR POC Glucose Random Glucose Lactic Acid Lactic Acid F/U @ 2Hr Lactic Acid F/U @ 4Hr Calcium Phosphorus Magnesium Total Bilirubin Direct Bilirubin AST ALT Alkaline Phosphatase Total Creatine Kinase Troponin I High Sens Total Protein Albumin Lipase TSH Free T4 Urine Color Dark Yellow Urine Appearance Cloudy Urine pH 5.5 Ur Specific [place] 1.015 Urine Protein 100 (2+) H Urine Glucose (UA) 100 H Urine Ketones Trace Urine Blood Large (3+) H Urine Nitrite Negative Ur Leukocyte Esterase Trace H Urine RBC >20 H Urine WBC 0-5 Ur Squamous Epith Cells 0-2 Urine Bacteria None Seen Hyaline Casts 0-2 Urine Test CSF Tube Number Cancelled 1 4 CSF Volume CSF Appearance CSF Color CSF WBC CSF RBC CSF Lymphocytes CSF Monocytes % CSF Appearance (b) CSF Glucose CSF Total Protein Vancomycin Trough Random Vancomycin Urine Opiates Screen Urine Fentanyl Screen Ur Barbiturates Screen Ur Phencyclidine Scrn Ur Amphetamines Screen U Benzodiazepines Scrn Urine Cocaine Screen U Marijuana (THC) Screen Ethyl Alcohol Respiratory Panel [place] Adenovirus (Rapid PCR) B.pert (TEM-PCR) B.parapertussis DNA PCR C. pneumoniae DNA (PCR) Coronavirus OC43 (PCR) Coronavirus HKU1 (PCR) Coronavirus 229E (PCR) Coronavirus NL63 (PCR) Human Metapneumovir PCR Influenza A (RT-PCR) Influenza B (RT-PCR) M. pneumoniae (PCR) Parainfluenza 1 (PCR) Parainfluenza 2 (PCR) Parainfluenza 3 (PCR) Parainfluenza 4 (PCR) RSV (PCR) Entero/Rhino (PCR) SARS-CoV-2 RNA (RT-PCR) 08/16/23 08/16/23 08/16/23 08:25 08:25 08:25 WBC RBC Hgb Hct MCV MCH MCHC RDW Plt Count MPV Immature Gran % (Auto) Neut % (Auto) Lymph % (Auto) [place] % (Auto) Eos % (Auto) Baso % (Auto) Lymph # (Auto) [place] # (Auto) Eos # (Auto) Baso # (Auto) Abs Immat Gran (auto) Absolute Neuts (auto) Absolute Nucleated RBC Nucleated RBC % (auto) Smear Tech's Comments Hold Purple Top PT INR APTT Hold Blue Top O2 Saturation ABG pH at Pt Temp ABG pCO2 at Pt Temp ABG pO2 at Pt Temp ABG HCO3 ABG Base Excess (Actual) VBG pH VBG pCO2 VBG pO2 VBG HCO3 VBG O2 Saturation VBG Base Excess Sodium Potassium Chloride Carbon Dioxide Anion Gap BUN Creatinine Estim Creat Clear Calc Estimated GFR POC Glucose Random Glucose Lactic Acid Lactic Acid F/U @ 2Hr Lactic Acid F/U @ 4Hr Calcium Phosphorus Magnesium Total Bilirubin Direct Bilirubin AST ALT Alkaline Phosphatase Total Creatine Kinase Troponin I High Sens Total Protein Albumin Lipase TSH Free T4 Urine Color Urine Appearance Urine pH Ur Specific [place] Urine Protein Urine Glucose (UA) Urine Ketones Urine Blood Urine Nitrite Ur Leukocyte Esterase Urine RBC Urine WBC Ur Squamous Epith Cells Urine Bacteria Hyaline Casts Urine Test CSF Tube Number 2 CSF Volume 1.0 1.0 CSF Appearance CLEAR CLEAR CSF Color COLORLESS CSF WBC CSF RBC CSF Lymphocytes CSF Monocytes % CSF Appearance (b) CSF Glucose CSF Total Protein Vancomycin Trough Random Vancomycin Urine Opiates Screen Urine Fentanyl Screen Ur Barbiturates Screen Ur Phencyclidine Scrn Ur Amphetamines Screen U Benzodiazepines Scrn Urine Cocaine Screen U Marijuana (THC) Screen Ethyl Alcohol Respiratory Panel [place] Adenovirus (Rapid PCR) B.pert (TEM-PCR) B.parapertussis DNA PCR C. pneumoniae DNA (PCR) Coronavirus OC43 (PCR) Coronavirus HKU1 (PCR) Coronavirus 229E (PCR) Coronavirus NL63 (PCR) Human Metapneumovir PCR Influenza A (RT-PCR) Influenza B (RT-PCR) M. pneumoniae (PCR) Parainfluenza 1 (PCR) Parainfluenza 2 (PCR) Parainfluenza 3 (PCR) Parainfluenza 4 (PCR) RSV (PCR) Entero/Rhino (PCR) SARS-CoV-2 RNA (RT-PCR) 08/16/23 08/16/23 08/16/23 08:25 08:25 08:25 WBC RBC Hgb Hct MCV MCH MCHC RDW Plt Count MPV Immature Gran % (Auto) Neut % (Auto) Lymph % (Auto) [place] % (Auto) Eos % (Auto) Baso % (Auto) Lymph # (Auto) [place] # (Auto) Eos # (Auto) Baso # (Auto) Abs Immat Gran (auto) Absolute Neuts (auto) Absolute Nucleated RBC Nucleated RBC % (auto) Smear Tech's Comments Hold Purple Top PT INR APTT Hold Blue Top O2 Saturation ABG pH at Pt Temp ABG pCO2 at Pt Temp ABG pO2 at Pt Temp ABG HCO3 ABG Base Excess (Actual) VBG pH VBG pCO2 VBG pO2 VBG HCO3 VBG O2 Saturation VBG Base Excess Sodium Potassium Chloride Carbon Dioxide Anion Gap BUN Creatinine Estim Creat Clear Calc Estimated GFR POC Glucose Random Glucose Lactic Acid Lactic Acid F/U @ 2Hr Lactic Acid F/U @ 4Hr Calcium Phosphorus Magnesium Total Bilirubin Direct Bilirubin AST ALT Alkaline Phosphatase Total Creatine Kinase Troponin I High Sens Total Protein Albumin Lipase TSH Free T4 Urine Color Urine Appearance Urine pH Ur Specific [place] Urine Protein Urine Glucose (UA) Urine Ketones Urine Blood Urine Nitrite Ur Leukocyte Esterase Urine RBC Urine WBC Ur Squamous Epith Cells Urine Bacteria Hyaline Casts Urine Test CSF Tube Number CSF Volume CSF Appearance CSF Color COLORLESS CSF WBC 2 3 CSF RBC 22 14 CSF Lymphocytes 100 CSF Monocytes % CSF Appearance (b) CSF Glucose CSF Total Protein Vancomycin Trough Random Vancomycin Urine Opiates Screen Urine Fentanyl Screen Ur Barbiturates Screen Ur Phencyclidine Scrn Ur Amphetamines Screen U Benzodiazepines Scrn Urine Cocaine Screen U Marijuana (THC) Screen Ethyl Alcohol Respiratory Panel [place] Adenovirus (Rapid PCR) B.pert (TEM-PCR) B.parapertussis DNA PCR C. pneumoniae DNA (PCR) Coronavirus OC43 (PCR) Coronavirus HKU1 (PCR) Coronavirus 229E (PCR) Coronavirus NL63 (PCR) Human Metapneumovir PCR Influenza A (RT-PCR) Influenza B (RT-PCR) M. pneumoniae (PCR) Parainfluenza 1 (PCR) Parainfluenza 2 (PCR) Parainfluenza 3 (PCR) Parainfluenza 4 (PCR) RSV (PCR) Entero/Rhino (PCR) SARS-CoV-2 RNA (RT-PCR) 08/16/23 08/16/23 08/16/23 08:25 08:25 08:25 WBC RBC Hgb Hct MCV MCH MCHC RDW Plt Count MPV Immature Gran % (Auto) Neut % (Auto) Lymph % (Auto) [place] % (Auto) Eos % (Auto) Baso % (Auto) Lymph # (Auto) [place] # (Auto) Eos # (Auto) Baso # (Auto) Abs Immat Gran (auto) Absolute Neuts (auto) Absolute Nucleated RBC Nucleated RBC % (auto) Smear Tech's Comments Hold Purple Top PT INR APTT Hold Blue Top O2 Saturation ABG pH at Pt Temp ABG pCO2 at Pt Temp ABG pO2 at Pt Temp ABG HCO3 ABG Base Excess (Actual) VBG pH VBG pCO2 VBG pO2 VBG HCO3 VBG O2 Saturation VBG Base Excess Sodium Potassium Chloride Carbon Dioxide Anion Gap BUN Creatinine Estim Creat Clear Calc Estimated GFR POC Glucose Random Glucose Lactic Acid Lactic Acid F/U @ 2Hr Lactic Acid F/U @ 4Hr Calcium Phosphorus Magnesium Total Bilirubin Direct Bilirubin AST ALT Alkaline Phosphatase Total Creatine Kinase Troponin I High Sens Total Protein Albumin Lipase TSH Free T4 Urine Color Urine Appearance Urine pH Ur Specific [place] Urine Protein Urine Glucose (UA) Urine Ketones Urine Blood Urine Nitrite Ur Leukocyte Esterase Urine RBC Urine WBC Ur Squamous Epith Cells Urine Bacteria Hyaline Casts Urine Test CSF Tube Number CSF Volume CSF Appearance CSF Color CSF WBC CSF RBC CSF Lymphocytes 83 CSF Monocytes % 17 CSF Appearance (b) Cancelled Clear, Colorless CSF Glucose Cancelled 96 CSF Total Protein 28.6 Vancomycin Trough Random Vancomycin Urine Opiates Screen POSITIVE H Urine Fentanyl Screen POSITIVE H Ur Barbiturates Screen Not Detected Ur Phencyclidine Scrn Not Detected Ur Amphetamines Screen Not Detected U Benzodiazepines Scrn POSITIVE H Urine Cocaine Screen POSITIVE H U Marijuana (THC) Screen POSITIVE H Ethyl Alcohol Respiratory Panel [place] Adenovirus (Rapid PCR) B.pert (TEM-PCR) B.parapertussis DNA PCR C. pneumoniae DNA (PCR) Coronavirus OC43 (PCR) Coronavirus HKU1 (PCR) Coronavirus 229E (PCR) Coronavirus NL63 (PCR) Human Metapneumovir PCR Influenza A (RT-PCR) Influenza B (RT-PCR) M. pneumoniae (PCR) Parainfluenza 1 (PCR) Parainfluenza 2 (PCR) Parainfluenza 3 (PCR) Parainfluenza 4 (PCR) RSV (PCR) Entero/Rhino (PCR) SARS-CoV-2 RNA (RT-PCR) 08/16/23 08/16/23 08/16/23 09:46 09:50 12:59 WBC RBC Hgb Hct MCV MCH MCHC RDW Plt Count MPV Immature Gran % (Auto) Neut % (Auto) Lymph % (Auto) [place] % (Auto) Eos % (Auto) Baso % (Auto) Lymph # (Auto) [place] # (Auto) Eos # (Auto) Baso # (Auto) Abs Immat Gran (auto) Absolute Neuts (auto) Absolute Nucleated RBC Nucleated RBC % (auto) Smear Tech's Comments Hold Purple Top PT INR APTT Hold Blue Top O2 Saturation ABG pH at Pt Temp ABG pCO2 at Pt Temp ABG pO2 at Pt Temp ABG HCO3 ABG Base Excess (Actual) VBG pH VBG pCO2 VBG pO2 VBG HCO3 VBG O2 Saturation VBG Base Excess Sodium Potassium Chloride Carbon Dioxide Anion Gap BUN Creatinine Estim Creat Clear Calc Estimated GFR POC Glucose Random Glucose Lactic Acid Lactic Acid F/U @ 2Hr 2.3 H* Lactic Acid F/U @ 4Hr 3.1 H* Calcium Phosphorus Magnesium Total Bilirubin Direct Bilirubin AST ALT Alkaline Phosphatase Total Creatine Kinase Troponin I High Sens Total Protein Albumin Lipase TSH 0.70 Free T4 1.10 Urine Color Urine Appearance Urine pH Ur Specific [place] Urine Protein Urine Glucose (UA) Urine Ketones Urine Blood Urine Nitrite Ur Leukocyte Esterase Urine RBC Urine WBC Ur Squamous Epith Cells Urine Bacteria Hyaline Casts Urine Test CSF Tube Number CSF Volume CSF Appearance CSF Color CSF WBC CSF RBC CSF Lymphocytes CSF Monocytes % CSF Appearance (b) CSF Glucose CSF Total Protein Vancomycin Trough Random Vancomycin Urine Opiates Screen Urine Fentanyl Screen Ur Barbiturates Screen Ur Phencyclidine Scrn Ur Amphetamines Screen U Benzodiazepines Scrn Urine Cocaine Screen U Marijuana (THC) Screen Ethyl Alcohol Respiratory Panel [place] See Note Adenovirus (Rapid PCR) Not Detected B.pert (TEM-PCR) Not Detected B.parapertussis DNA PCR Not Detected C. pneumoniae DNA (PCR) Not Detected Coronavirus OC43 (PCR) Not Detected Coronavirus HKU1 (PCR) Not Detected Coronavirus 229E (PCR) Not Detected Coronavirus NL63 (PCR) Not Detected Human Metapneumovir PCR Not Detected Influenza A (RT-PCR) Not Detected Influenza B (RT-PCR) Not Detected M. pneumoniae (PCR) Not Detected Parainfluenza 1 (PCR) Not Detected Parainfluenza 2 (PCR) Not Detected Parainfluenza 3 (PCR) Not Detected Parainfluenza 4 (PCR) Not Detected RSV (PCR) Not Detected Entero/Rhino (PCR) Not Detected SARS-CoV-2 RNA (RT-PCR) Not Detected 08/17/23 08/17/23 08/17/23 04:43 04:47 Unknown WBC 15.6 H RBC 4.29 Hgb 13.7 Hct 41.3 MCV 96.3 MCH 31.9 MCHC 33.2 RDW 13.1 Plt Count 266 D MPV 11.5 Immature Gran % (Auto) 0.3 Neut % (Auto) 73.5 H Lymph % (Auto) 15.9 L [place] % (Auto) 10.1 Eos % (Auto) 0.0 Baso % (Auto) 0.2 Lymph # (Auto) 2.5 [place] # (Auto) 1.6 H Eos # (Auto) 0.0 Baso # (Auto) 0.0 Abs Immat Gran (auto) 0.04 H Absolute Neuts (auto) 11.5 H Absolute Nucleated RBC 0.000 Nucleated RBC % (auto) 0.0 Smear Tech's Comments Hold Purple Top PT INR APTT Hold Blue Top O2 Saturation ABG pH at Pt Temp ABG pCO2 at Pt Temp ABG pO2 at Pt Temp ABG HCO3 ABG Base Excess (Actual) VBG pH 7.46 H VBG pCO2 24 VBG pO2 125 VBG HCO3 17 L VBG O2 Saturation 99.0 VBG Base Excess -4.6 Sodium 140 Potassium 4.1 D Chloride 113 H Carbon Dioxide 15 L Anion Gap 16 BUN 16 Creatinine 1.06 Estim Creat Clear Calc 76.1 Estimated GFR 59 POC Glucose Random Glucose 158 H Lactic Acid Lactic Acid F/U @ 2Hr Lactic Acid F/U @ 4Hr Calcium 8.2 L D Phosphorus 3.1 Magnesium 2.4 Total Bilirubin 0.4 Direct Bilirubin AST 397 H ALT 135 H Alkaline Phosphatase 53 Total Creatine Kinase Troponin I High Sens Total Protein 6.1 L Albumin 3.2 L Lipase TSH Free T4 Urine Color Urine Appearance Urine pH Ur Specific [place] Urine Protein Urine Glucose (UA) Urine Ketones Urine Blood Urine Nitrite Ur Leukocyte Esterase Urine RBC Urine WBC Ur Squamous Epith Cells Urine Bacteria Hyaline Casts Urine Test NEGATIVE CSF Tube Number CSF Volume CSF Appearance CSF Color CSF WBC CSF RBC CSF Lymphocytes CSF Monocytes % CSF Appearance (b) CSF Glucose CSF Total Protein Vancomycin Trough Random Vancomycin Urine Opiates Screen Urine Fentanyl Screen Ur Barbiturates Screen Ur Phencyclidine Scrn Ur Amphetamines Screen U Benzodiazepines Scrn Urine Cocaine Screen U Marijuana (THC) Screen Ethyl Alcohol Respiratory Panel [place] Adenovirus (Rapid PCR) B.pert (TEM-PCR) B.parapertussis DNA PCR C. pneumoniae DNA (PCR) Coronavirus OC43 (PCR) Coronavirus HKU1 (PCR) Coronavirus 229E (PCR) Coronavirus NL63 (PCR) Human Metapneumovir PCR Influenza A (RT-PCR) Influenza B (RT-PCR) M. pneumoniae (PCR) Parainfluenza 1 (PCR) Parainfluenza 2 (PCR) Parainfluenza 3 (PCR) Parainfluenza 4 (PCR) RSV (PCR) Entero/Rhino (PCR) SARS-CoV-2 RNA (RT-PCR) 08/18/23 08/18/23 08/19/23 04:28 04:34 05:05 WBC 13.7 H 13.8 H RBC 3.88 L 3.33 L Hgb 12.4 10.7 L Hct 37.9 32.6 L MCV 97.7 97.9 MCH 32.0 32.1 MCHC 32.7 32.8 RDW 13.2 13.0 Plt Count 250 225 MPV 11.1 11.3 Immature Gran % (Auto) 0.4 0.7 H Neut % (Auto) 58.7 50.5 Lymph % (Auto) 32.7 42.0 H [place] % (Auto) 7.9 6.4 Eos % (Auto) 0.1 0.1 Baso % (Auto) 0.2 0.3 Lymph # (Auto) 4.5 5.8 H [place] # (Auto) 1.1 0.9 Eos # (Auto) 0.0 0.0 Baso # (Auto) 0.0 0.0 Abs Immat Gran (auto) 0.05 H 0.09 H Absolute Neuts (auto) 8.0 7.0 Absolute Nucleated RBC 0.000 0.000 Nucleated RBC % (auto) 0.0 0.0 Smear Tech's Comments VERIFIED VERIFIED Hold Purple Top PT INR APTT Hold Blue Top O2 Saturation ABG pH at Pt Temp ABG pCO2 at Pt Temp ABG pO2 at Pt Temp ABG HCO3 ABG Base Excess (Actual) VBG pH 7.50 H VBG pCO2 32 VBG pO2 47 VBG HCO3 25 VBG O2 Saturation 80.0 VBG Base Excess 2.8 Sodium 143 143 Potassium 4.0 3.8 Chloride 111 H 110 H Carbon Dioxide 20 L 24 Anion Gap 16 13 BUN 12 12 Creatinine 0.79 0.71 Estim Creat Clear Calc 108.0 121.6 Estimated GFR > 60 > 60 POC Glucose Random Glucose 99 87 Lactic Acid Lactic Acid F/U @ 2Hr Lactic Acid F/U @ 4Hr Calcium 8.5 8.3 L Phosphorus 2.8 1.9 L Magnesium 2.5 2.3 Total Bilirubin 0.4 0.6 Direct Bilirubin AST 296 H 247 H ALT 110 H 96 H Alkaline Phosphatase 62 46 Total Creatine Kinase 04267 H 05443 H Troponin I High Sens Total Protein 5.5 L 5.3 L Albumin 3.0 L 2.8 L Lipase TSH Free T4 Urine Color Urine Appearance Urine pH Ur Specific [place] Urine Protein Urine Glucose (UA) Urine Ketones Urine Blood Urine Nitrite Ur Leukocyte Esterase Urine RBC Urine WBC Ur Squamous Epith Cells Urine Bacteria Hyaline Casts Urine Test CSF Tube Number CSF Volume CSF Appearance CSF Color CSF WBC CSF RBC CSF Lymphocytes CSF Monocytes % CSF Appearance (b) CSF Glucose CSF Total Protein Vancomycin Trough 10.1 Random Vancomycin Urine Opiates Screen Urine Fentanyl Screen Ur Barbiturates Screen Ur Phencyclidine Scrn Ur Amphetamines Screen U Benzodiazepines Scrn Urine Cocaine Screen U Marijuana (THC) Screen Ethyl Alcohol Respiratory Panel [place] Adenovirus (Rapid PCR) B.pert (TEM-PCR) B.parapertussis DNA PCR C. pneumoniae DNA (PCR) Coronavirus OC43 (PCR) Coronavirus HKU1 (PCR) Coronavirus 229E (PCR) Coronavirus NL63 (PCR) Human Metapneumovir PCR Influenza A (RT-PCR) Influenza B (RT-PCR) M. pneumoniae (PCR) Parainfluenza 1 (PCR) Parainfluenza 2 (PCR) Parainfluenza 3 (PCR) Parainfluenza 4 (PCR) RSV (PCR) Entero/Rhino (PCR) SARS-CoV-2 RNA (RT-PCR) 08/19/23 08/19/23 08/19/23 05:16 17:53 20:05 WBC RBC Hgb Hct MCV MCH MCHC RDW Plt Count MPV Immature Gran % (Auto) Neut % (Auto) Lymph % (Auto) [place] % (Auto) Eos % (Auto) Baso % (Auto) Lymph # (Auto) [place] # (Auto) Eos # (Auto) Baso # (Auto) Abs Immat Gran (auto) Absolute Neuts (auto) Absolute Nucleated RBC Nucleated RBC % (auto) Smear Tech's Comments Hold Purple Top PT INR APTT Hold Blue Top O2 Saturation ABG pH at Pt Temp ABG pCO2 at Pt Temp ABG pO2 at Pt Temp ABG HCO3 ABG Base Excess (Actual) VBG pH 7.58 H VBG pCO2 30 VBG pO2 47 VBG HCO3 28 H VBG O2 Saturation 81.0 VBG Base Excess 7.1 Sodium 143 Potassium 3.3 Chloride 109 H Carbon Dioxide 23 Anion Gap 14 BUN 12 Creatinine 0.70 Estim Creat Clear Calc 123.4 Estimated GFR > 60 POC Glucose Random Glucose 102 Lactic Acid Lactic Acid F/U @ 2Hr Lactic Acid F/U @ 4Hr Calcium 8.4 Phosphorus 2.9 Magnesium 2.3 Total Bilirubin Direct Bilirubin AST ALT Alkaline Phosphatase Total Creatine Kinase Troponin I High Sens Total Protein Albumin 3.0 L Lipase TSH Free T4 Urine Color Urine Appearance Urine pH Ur Specific [place] Urine Protein Urine Glucose (UA) Urine Ketones Urine Blood Urine Nitrite Ur Leukocyte Esterase Urine RBC Urine WBC Ur Squamous Epith Cells Urine Bacteria Hyaline Casts Urine Test CSF Tube Number CSF Volume CSF Appearance CSF Color CSF WBC CSF RBC CSF Lymphocytes CSF Monocytes % CSF Appearance (b) CSF Glucose CSF Total Protein Vancomycin Trough Random Vancomycin 11.6 L Urine Opiates Screen Urine Fentanyl Screen Ur Barbiturates Screen Ur Phencyclidine Scrn Ur Amphetamines Screen U Benzodiazepines Scrn Urine Cocaine Screen U Marijuana (THC) Screen Ethyl Alcohol Respiratory Panel [place] Adenovirus (Rapid PCR) B.pert (TEM-PCR) B.parapertussis DNA PCR C. pneumoniae DNA (PCR) Coronavirus OC43 (PCR) Coronavirus HKU1 (PCR) Coronavirus 229E (PCR) Coronavirus NL63 (PCR) Human Metapneumovir PCR Influenza A (RT-PCR) Influenza B (RT-PCR) M. pneumoniae (PCR) Parainfluenza 1 (PCR) Parainfluenza 2 (PCR) Parainfluenza 3 (PCR) Parainfluenza 4 (PCR) RSV (PCR) Entero/Rhino (PCR) SARS-CoV-2 RNA (RT-PCR) 08/20/23 08/20/23 08/20/23 05:15 05:18 07:51 WBC 10.9 H RBC 3.02 L Hgb 9.6 L Hct 29.1 L MCV 96.4 MCH 31.8 MCHC 33.0 RDW 12.7 Plt Count 195 MPV 11.5 Immature Gran % (Auto) 0.5 H Neut % (Auto) 40.4 L Lymph % (Auto) 50.6 H [place] % (Auto) 7.6 Eos % (Auto) 0.6 Baso % (Auto) 0.3 Lymph # (Auto) 5.5 H [place] # (Auto) 0.8 Eos # (Auto) 0.1 Baso # (Auto) 0.0 Abs Immat Gran (auto) 0.05 H Absolute Neuts (auto) 4.4 Absolute Nucleated RBC 0.000 Nucleated RBC % (auto) 0.0 Smear Tech's Comments VERIFIED Hold Purple Top PT 11.4 INR 0.9 APTT 25.7 L Hold Blue Top O2 Saturation ABG pH at Pt Temp ABG pCO2 at Pt Temp ABG pO2 at Pt Temp ABG HCO3 ABG Base Excess (Actual) VBG pH 7.50 H VBG pCO2 36 VBG pO2 54 VBG HCO3 28 H VBG O2 Saturation 84.0 VBG Base Excess 5.4 Sodium 144 Potassium 3.3 Chloride 110 H Carbon Dioxide 23 Anion Gap 14 BUN 15 Creatinine 0.68 Estim Creat Clear Calc 126.1 Estimated GFR > 60 POC Glucose Random Glucose 81 Lactic Acid Lactic Acid F/U @ 2Hr Lactic Acid F/U @ 4Hr Calcium 8.4 Phosphorus 2.6 L Magnesium 2.4 Total Bilirubin 1.0 Direct Bilirubin AST 209 H ALT 91 H Alkaline Phosphatase 37 L Total Creatine Kinase 8395 H Troponin I High Sens Total Protein 5.2 L Albumin 3.2 L Lipase TSH Free T4 Urine Color Urine Appearance Urine pH Ur Specific [place] Urine Protein Urine Glucose (UA) Urine Ketones Urine Blood Urine Nitrite Ur Leukocyte Esterase Urine RBC Urine WBC Ur Squamous Epith Cells Urine Bacteria Hyaline Casts Urine Test CSF Tube Number CSF Volume CSF Appearance CSF Color CSF WBC CSF RBC CSF Lymphocytes CSF Monocytes % CSF Appearance (b) CSF Glucose CSF Total Protein Vancomycin Trough Random Vancomycin Urine Opiates Screen Urine Fentanyl Screen Ur Barbiturates Screen Ur Phencyclidine Scrn Ur Amphetamines Screen U Benzodiazepines Scrn Urine Cocaine Screen U Marijuana (THC) Screen Ethyl Alcohol Respiratory Panel [place] Adenovirus (Rapid PCR) B.pert (TEM-PCR) B.parapertussis DNA PCR C. pneumoniae DNA (PCR) Coronavirus OC43 (PCR) Coronavirus HKU1 (PCR) Coronavirus 229E (PCR) Coronavirus NL63 (PCR) Human Metapneumovir PCR Influenza A (RT-PCR) Influenza B (RT-PCR) M. pneumoniae (PCR) Parainfluenza 1 (PCR) Parainfluenza 2 (PCR) Parainfluenza 3 (PCR) Parainfluenza 4 (PCR) RSV (PCR) Entero/Rhino (PCR) SARS-CoV-2 RNA (RT-PCR) Airway Mallampati Class: II Heart: RRR Lungs: CTA Assessment and Plan Final Anesthetic Review Family History of Problems with Anesthesia: No History of Problems with Anesthesia: No ASA Class: III and Emergency Final Preanesthetic Review: Meds/Allgs Chart Reviewed, Consent Obtained/Reviewed and Anes Risks/Benef Reviewed Patient Risk: Low Procedure Risk: Low Anesthetic Plan Anesthetic Plan: MAC: Disposition: Inp. Admit - ICU
--- NOTE | 2023-08-20 13:21 | HO.ANESPROP2 ---
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 (Acute) Pneumonia involving left lung (Acute) Rhabdomyolysis (Acute) Troponin I above reference range (Acute) Acidosis, lactic (Acute) Acute renal failure (Acute) Fever (Acute) Altered mental status (Acute) Substance abuse (Acute) Upper respiratory tract infection (Acute) Flank pain (Acute) Dysuria (Acute) Wheezing (Acute) Respiratory infection (Acute) Cough (Acute) Past Medical History Medical History Substance abuse Family History Family history of problems with anesthesia: No Surgical History History of Problems with Anesthesia: No Social History Social History Household Members: Family Housing: House Do you presently have visiting nurse or other home services: No Unable to assess alcohol history related to: Unable to respond Alcohol intake: current Alcohol intake frequency: 0-2 drinks per day Patient Tobacco Use Status: Current someday Tobacco user Use of substances other than those prescribed or required for medical reasons: Yes Substance Use Type: Crack/Cocaine Substance Use Frequency: Chronic Longstanding Last Used Substance: Unknown Currently Displaying Signs/Symptoms of Drug Intoxication Withdrawal: No Advance Directives: No Patient : No : No Meds Allergies Allergy/AdvReac Type Severity Reaction Status Date / Time No Known Allergies Allergy Verified 04/24/23 13:48 Active Medications: Current Medications Hydrocortisone Sodium Succinate (Hydrocortisone Sod Succ/Pf 100 Mg Vial) 50 mg IVPUSH BID@0630,1630 JEANINE Last Admin: 08/20/23 05:32 Dose: 50 mg Hydromorphone HCl (Hydromorphone Hcl 2 Mg/Ml Vial) 2 mg IVPUSH Q4H JEANINE; Protocol Last Admin: 08/20/23 08:11 Dose: 2 mg Hydromorphone HCl (Hydromorphone Hcl 1 Mg/Ml Syringe) 1 mg IVPUSH Q2H PRN; Protocol PRN Reason: Pain, Severe (Pain Scale 7-10) Last Admin: 08/20/23 10:20 Dose: 1 mg Levetiracetam (Keppra) 500 mg in 100 mls @ 400 mls/hr IV Q12H [facility] Last Infusion: 08/20/23 08:48 Dose: Infused Meropenem 1 gm/ Sodium (Chloride) 100 mls @ 200 mls/hr IV Q8H [facility] Last Infusion: 08/20/23 06:10 Dose: Infused Cefazolin Sodium/Dextrose (Ancef) 2 gm in 50 mls @ 100 mls/hr IV PREOP [facility] Stop: 08/20/23 23:00 Acetaminophen (Ofirmev) 1,000 mg in 100 mls @ 400 mls/hr IV Q12H [facility] Last Infusion: 08/20/23 04:20 Dose: Infused Vancomycin HCl 1,000 mg/ (Sodium Chloride) 270 mls @ 270 mls/hr IV Q8H [facility] Last Infusion: 08/20/23 12:22 Dose: Infused Ketorolac Tromethamine (Ketorolac Tromethamine 15 Mg/Ml Vial) 15 mg IVPUSH Q6H [facility] Stop: 08/20/23 16:01 Last Admin: 08/20/23 09:35 Dose: 15 mg Methadone HCl (Methadone Hcl 20 Mg/2 Ml Oral.Conc) 30 mg PO DAILY [facility] Last Admin: 08/20/23 10:57 Dose: Not Given Midazolam HCl (Midazolam Hcl/Pf 2 Mg/2 Ml Vial) 2 mg IVPUSH Q15M PRN PRN Reason: Ventilator synchrony Last Admin: 08/16/23 12:21 Dose: 2 mg Pantoprazole Sodium (Pantoprazole Sodium 40 Mg/10 Ml Vial) 40 mg IVPUSH BID@0630,1630 [facility] Last Admin: 08/20/23 05:32 Dose: 40 mg Pharmacy Consult (Consult Rx Vancomycin Dosing) 1 each MISCELLANE DAILY PRN PRN Reason: Consult order Sodium Chloride (0.9 % Sodium Chloride Flush 3 Ml Syringe) 3 ml IVFLUSH QSHIFT [facility] Last Admin: 08/20/23 08:14 Dose: Not Given Home Medications Medication Instructions Recorded Confirmed Last Taken Type No Known Home Meds 08/16/23 08/16/23 Unknown History Exam Exam Date and Time: August 20, 2023 132 Height,Weight and Vital Signs: Height 5 ft 6 in Weight 82.3 kg Last Vital Signs Temp 99.3 F 08/20/23 12:00 Pulse 86 08/20/23 12:00 Resp 12 08/20/23 12:00 BP 113/75 08/20/23 12:00 Pulse Ox 95 08/20/23 12:00 O2 Del Method Nasal Cannula 08/20/23 12:00 O2 Flow Rate 2 08/20/23 12:00 FiO2 35 08/19/23 07:58 Pertinent Lab Results Pertinent Lab Results: Laboratory Tests 08/16/23 08/16/23 08/16/23 07:04 07:11 08:22 WBC 13.7 H RBC 5.02 D Hgb 16.0 D Hct 48.3 H D MCV 96.2 MCH 31.9 MCHC 33.1 RDW 13.0 Plt Count 373 D MPV 10.7 Immature Gran % (Auto) 1.4 H Neut % (Auto) 76.3 H Lymph % (Auto) 15.0 L Quay % (Auto) 7.1 Eos % (Auto) 0.0 Baso % (Auto) 0.2 Lymph # (Auto) 2.1 Quay # (Auto) 1.0 Eos # (Auto) 0.0 Baso # (Auto) 0.0 Abs Immat Gran (auto) 0.19 H Absolute Neuts (auto) 10.5 H Absolute Nucleated RBC 0.020 H Nucleated RBC % (auto) 0.1 Smear Tech's Comments Hold Purple Top SEE NOTE PT INR APTT Hold Blue Top SEE NOTE O2 Saturation 99.0 ABG pH at Pt Temp 7.37 ABG pCO2 at Pt Temp 23 L ABG pO2 at Pt Temp 199 H ABG HCO3 14 L ABG Base Excess (Actual) -9.1 VBG pH VBG pCO2 VBG pO2 VBG HCO3 VBG O2 Saturation VBG Base Excess Sodium 139 Potassium 5.7 H D Chloride 106 Carbon Dioxide 18 L Anion Gap 21 H BUN 30 H Creatinine 2.13 H Estim Creat Clear Calc 40.0 Estimated GFR 27 POC Glucose 123 H Random Glucose 119 H Lactic Acid 4.3 H* Lactic Acid F/U @ 2Hr Lactic Acid F/U @ 4Hr Calcium 9.6 Phosphorus Magnesium Total Bilirubin 0.4 Direct Bilirubin 0.2 AST 344 H ALT 114 H Alkaline Phosphatase 75 Total Creatine Kinase 09223 H Troponin I High Sens 346.8 H* Total Protein 8.2 H Albumin 4.8 Lipase 24 TSH Free T4 Urine Color Urine Appearance Urine pH Ur Specific [place] Urine Protein Urine Glucose (UA) Urine Ketones Urine Blood Urine Nitrite Ur Leukocyte Esterase Urine RBC Urine WBC Ur Squamous Epith Cells Urine Bacteria Hyaline Casts Urine Test CSF Tube Number CSF Volume CSF Appearance CSF Color CSF WBC CSF RBC CSF Lymphocytes CSF Monocytes % CSF Appearance (b) CSF Glucose CSF Total Protein Vancomycin Trough Random Vancomycin Urine Opiates Screen Urine Fentanyl Screen Ur Barbiturates Screen Ur Phencyclidine Scrn Ur Amphetamines Screen U Benzodiazepines Scrn Urine Cocaine Screen U Marijuana (THC) Screen Ethyl Alcohol < 10 Respiratory Panel [place] Adenovirus (Rapid PCR) B.pert (TEM-PCR) B.parapertussis DNA PCR C. pneumoniae DNA (PCR) Coronavirus OC43 (PCR) Coronavirus HKU1 (PCR) Coronavirus 229E (PCR) Coronavirus NL63 (PCR) Human Metapneumovir PCR Influenza A (RT-PCR) Influenza B (RT-PCR) M. pneumoniae (PCR) Parainfluenza 1 (PCR) Parainfluenza 2 (PCR) Parainfluenza 3 (PCR) Parainfluenza 4 (PCR) RSV (PCR) Entero/Rhino (PCR) SARS-CoV-2 RNA (RT-PCR) 08/16/23 08/16/23 08/16/23 08:25 08:25 08:25 WBC RBC Hgb Hct MCV MCH MCHC RDW Plt Count MPV Immature Gran % (Auto) Neut % (Auto) Lymph % (Auto) Quay % (Auto) Eos % (Auto) Baso % (Auto) Lymph # (Auto) Quay # (Auto) Eos # (Auto) Baso # (Auto) Abs Immat Gran (auto) Absolute Neuts (auto) Absolute Nucleated RBC Nucleated RBC % (auto) Smear Tech's Comments Hold Purple Top PT INR APTT Hold Blue Top O2 Saturation ABG pH at Pt Temp ABG pCO2 at Pt Temp ABG pO2 at Pt Temp ABG HCO3 ABG Base Excess (Actual) VBG pH VBG pCO2 VBG pO2 VBG HCO3 VBG O2 Saturation VBG Base Excess Sodium Potassium Chloride Carbon Dioxide Anion Gap BUN Creatinine Estim Creat Clear Calc Estimated GFR POC Glucose Random Glucose Lactic Acid Lactic Acid F/U @ 2Hr Lactic Acid F/U @ 4Hr Calcium Phosphorus Magnesium Total Bilirubin Direct Bilirubin AST ALT Alkaline Phosphatase Total Creatine Kinase Troponin I High Sens Total Protein Albumin Lipase TSH Free T4 Urine Color Dark Yellow Urine Appearance Cloudy Urine pH 5.5 Ur Specific [place] 1.015 Urine Protein 100 (2+) H Urine Glucose (UA) 100 H Urine Ketones Trace Urine Blood Large (3+) H Urine Nitrite Negative Ur Leukocyte Esterase Trace H Urine RBC >20 H Urine WBC 0-5 Ur Squamous Epith Cells 0-2 Urine Bacteria None Seen Hyaline Casts 0-2 Urine Test CSF Tube Number Cancelled 1 4 CSF Volume CSF Appearance CSF Color CSF WBC CSF RBC CSF Lymphocytes CSF Monocytes % CSF Appearance (b) CSF Glucose CSF Total Protein Vancomycin Trough Random Vancomycin Urine Opiates Screen Urine Fentanyl Screen Ur Barbiturates Screen Ur Phencyclidine Scrn Ur Amphetamines Screen U Benzodiazepines Scrn Urine Cocaine Screen U Marijuana (THC) Screen Ethyl Alcohol Respiratory Panel [place] Adenovirus (Rapid PCR) B.pert (TEM-PCR) B.parapertussis DNA PCR C. pneumoniae DNA (PCR) Coronavirus OC43 (PCR) Coronavirus HKU1 (PCR) Coronavirus 229E (PCR) Coronavirus NL63 (PCR) Human Metapneumovir PCR Influenza A (RT-PCR) Influenza B (RT-PCR) M. pneumoniae (PCR) Parainfluenza 1 (PCR) Parainfluenza 2 (PCR) Parainfluenza 3 (PCR) Parainfluenza 4 (PCR) RSV (PCR) Entero/Rhino (PCR) SARS-CoV-2 RNA (RT-PCR) 08/16/23 08/16/23 08/16/23 08:25 08:25 08:25 WBC RBC Hgb Hct MCV MCH MCHC RDW Plt Count MPV Immature Gran % (Auto) Neut % (Auto) Lymph % (Auto) Quay % (Auto) Eos % (Auto) Baso % (Auto) Lymph # (Auto) [place]ay # (Auto) Eos # (Auto) Baso # (Auto) Abs Immat Gran (auto) Absolute Neuts (auto) Absolute Nucleated RBC Nucleated RBC % (auto) Smear Tech's Comments Hold Purple Top PT INR APTT Hold Blue Top O2 Saturation ABG pH at Pt Temp ABG pCO2 at Pt Temp ABG pO2 at Pt Temp ABG HCO3 ABG Base Excess (Actual) VBG pH VBG pCO2 VBG pO2 VBG HCO3 VBG O2 Saturation VBG Base Excess Sodium Potassium Chloride Carbon Dioxide Anion Gap BUN Creatinine Estim Creat Clear Calc Estimated GFR POC Glucose Random Glucose Lactic Acid Lactic Acid F/U @ 2Hr Lactic Acid F/U @ 4Hr Calcium Phosphorus Magnesium Total Bilirubin Direct Bilirubin AST ALT Alkaline Phosphatase Total Creatine Kinase Troponin I High Sens Total Protein Albumin Lipase TSH Free T4 Urine Color Urine Appearance Urine pH Ur Specific [place] Urine Protein Urine Glucose (UA) Urine Ketones Urine Blood Urine Nitrite Ur Leukocyte Esterase Urine RBC Urine WBC Ur Squamous Epith Cells Urine Bacteria Hyaline Casts Urine Test CSF Tube Number 2 CSF Volume 1.0 1.0 CSF Appearance CLEAR CLEAR CSF Color COLORLESS CSF WBC CSF RBC CSF Lymphocytes CSF Monocytes % CSF Appearance (b) CSF Glucose CSF Total Protein Vancomycin Trough Random Vancomycin Urine Opiates Screen Urine Fentanyl Screen Ur Barbiturates Screen Ur Phencyclidine Scrn Ur Amphetamines Screen U Benzodiazepines Scrn Urine Cocaine Screen U Marijuana (THC) Screen Ethyl Alcohol Respiratory Panel [place] Adenovirus (Rapid PCR) B.pert (TEM-PCR) B.parapertussis DNA PCR C. pneumoniae DNA (PCR) Coronavirus OC43 (PCR) Coronavirus HKU1 (PCR) Coronavirus 229E (PCR) Coronavirus NL63 (PCR) Human Metapneumovir PCR Influenza A (RT-PCR) Influenza B (RT-PCR) M. pneumoniae (PCR) Parainfluenza 1 (PCR) Parainfluenza 2 (PCR) Parainfluenza 3 (PCR) Parainfluenza 4 (PCR) RSV (PCR) Entero/Rhino (PCR) SARS-CoV-2 RNA (RT-PCR) 08/16/23 08/16/23 08/16/23 08:25 08:25 08:25 WBC RBC Hgb Hct MCV MCH MCHC RDW Plt Count MPV Immature Gran % (Auto) Neut % (Auto) Lymph % (Auto) Quay % (Auto) Eos % (Auto) Baso % (Auto) Lymph # (Auto) [place] # (Auto) Eos # (Auto) Baso # (Auto) Abs Immat Gran (auto) Absolute Neuts (auto) Absolute Nucleated RBC Nucleated RBC % (auto) Smear Tech's Comments Hold Purple Top PT INR APTT Hold Blue Top O2 Saturation ABG pH at Pt Temp ABG pCO2 at Pt Temp ABG pO2 at Pt Temp ABG HCO3 ABG Base Excess (Actual) VBG pH VBG pCO2 VBG pO2 VBG HCO3 VBG O2 Saturation VBG Base Excess Sodium Potassium Chloride Carbon Dioxide Anion Gap BUN Creatinine Estim Creat Clear Calc Estimated GFR POC Glucose Random Glucose Lactic Acid Lactic Acid F/U @ 2Hr Lactic Acid F/U @ 4Hr Calcium Phosphorus Magnesium Total Bilirubin Direct Bilirubin AST ALT Alkaline Phosphatase Total Creatine Kinase Troponin I High Sens Total Protein Albumin Lipase TSH Free T4 Urine Color Urine Appearance Urine pH Ur Specific [place] Urine Protein Urine Glucose (UA) Urine Ketones Urine Blood Urine Nitrite Ur Leukocyte Esterase Urine RBC Urine WBC Ur Squamous Epith Cells Urine Bacteria Hyaline Casts Urine Test CSF Tube Number CSF Volume CSF Appearance CSF Color COLORLESS CSF WBC 2 3 CSF RBC 22 14 CSF Lymphocytes 100 CSF Monocytes % CSF Appearance (b) CSF Glucose CSF Total Protein Vancomycin Trough Random Vancomycin Urine Opiates Screen Urine Fentanyl Screen Ur Barbiturates Screen Ur Phencyclidine Scrn Ur Amphetamines Screen U Benzodiazepines Scrn Urine Cocaine Screen U Marijuana (THC) Screen Ethyl Alcohol Respiratory Panel [place] Adenovirus (Rapid PCR) B.pert (TEM-PCR) B.parapertussis DNA PCR C. pneumoniae DNA (PCR) Coronavirus OC43 (PCR) Coronavirus HKU1 (PCR) Coronavirus 229E (PCR) Coronavirus NL63 (PCR) Human Metapneumovir PCR Influenza A (RT-PCR) Influenza B (RT-PCR) M. pneumoniae (PCR) Parainfluenza 1 (PCR) Parainfluenza 2 (PCR) Parainfluenza 3 (PCR) Parainfluenza 4 (PCR) RSV (PCR) Entero/Rhino (PCR) SARS-CoV-2 RNA (RT-PCR) 08/16/23 08/16/23 08/16/23 08:25 08:25 08:25 WBC RBC Hgb Hct MCV MCH MCHC RDW Plt Count MPV Immature Gran % (Auto) Neut % (Auto) Lymph % (Auto) [place]ay % (Auto) Eos % (Auto) Baso % (Auto) Lymph # (Auto) [place] # (Auto) Eos # (Auto) Baso # (Auto) Abs Immat Gran (auto) Absolute Neuts (auto) Absolute Nucleated RBC Nucleated RBC % (auto) Smear Tech's Comments Hold Purple Top PT INR APTT Hold Blue Top O2 Saturation ABG pH at Pt Temp ABG pCO2 at Pt Temp ABG pO2 at Pt Temp ABG HCO3 ABG Base Excess (Actual) VBG pH VBG pCO2 VBG pO2 VBG HCO3 VBG O2 Saturation VBG Base Excess Sodium Potassium Chloride Carbon Dioxide Anion Gap BUN Creatinine Estim Creat Clear Calc Estimated GFR POC Glucose Random Glucose Lactic Acid Lactic Acid F/U @ 2Hr Lactic Acid F/U @ 4Hr Calcium Phosphorus Magnesium Total Bilirubin Direct Bilirubin AST ALT Alkaline Phosphatase Total Creatine Kinase Troponin I High Sens Total Protein Albumin Lipase TSH Free T4 Urine Color Urine Appearance Urine pH Ur Specific [place] Urine Protein Urine Glucose (UA) Urine Ketones Urine Blood Urine Nitrite Ur Leukocyte Esterase Urine RBC Urine WBC Ur Squamous Epith Cells Urine Bacteria Hyaline Casts Urine Test CSF Tube Number CSF Volume CSF Appearance CSF Color CSF WBC CSF RBC CSF Lymphocytes 83 CSF Monocytes % 17 CSF Appearance (b) Cancelled Clear, Colorless CSF Glucose Cancelled 96 CSF Total Protein 28.6 Vancomycin Trough Random Vancomycin Urine Opiates Screen POSITIVE H Urine Fentanyl Screen POSITIVE H Ur Barbiturates Screen Not Detected Ur Phencyclidine Scrn Not Detected Ur Amphetamines Screen Not Detected U Benzodiazepines Scrn POSITIVE H Urine Cocaine Screen POSITIVE H U Marijuana (THC) Screen POSITIVE H Ethyl Alcohol Respiratory Panel [place] Adenovirus (Rapid PCR) B.pert (TEM-PCR) B.parapertussis DNA PCR C. pneumoniae DNA (PCR) Coronavirus OC43 (PCR) Coronavirus HKU1 (PCR) Coronavirus 229E (PCR) Coronavirus NL63 (PCR) Human Metapneumovir PCR Influenza A (RT-PCR) Influenza B (RT-PCR) M. pneumoniae (PCR) Parainfluenza 1 (PCR) Parainfluenza 2 (PCR) Parainfluenza 3 (PCR) Parainfluenza 4 (PCR) RSV (PCR) Entero/Rhino (PCR) SARS-CoV-2 RNA (RT-PCR) 08/16/23 08/16/23 08/16/23 09:46 09:50 12:59 WBC RBC Hgb Hct MCV MCH MCHC RDW Plt Count MPV Immature Gran % (Auto) Neut % (Auto) Lymph % (Auto) [place] % (Auto) Eos % (Auto) Baso % (Auto) Lymph # (Auto) [place] # (Auto) Eos # (Auto) Baso # (Auto) Abs Immat Gran (auto) Absolute Neuts (auto) Absolute Nucleated RBC Nucleated RBC % (auto) Smear Tech's Comments Hold Purple Top PT INR APTT Hold Blue Top O2 Saturation ABG pH at Pt Temp ABG pCO2 at Pt Temp ABG pO2 at Pt Temp ABG HCO3 ABG Base Excess (Actual) VBG pH VBG pCO2 VBG pO2 VBG HCO3 VBG O2 Saturation VBG Base Excess Sodium Potassium Chloride Carbon Dioxide Anion Gap BUN Creatinine Estim Creat Clear Calc Estimated GFR POC Glucose Random Glucose Lactic Acid Lactic Acid F/U @ 2Hr 2.3 H* Lactic Acid F/U @ 4Hr 3.1 H* Calcium Phosphorus Magnesium Total Bilirubin Direct Bilirubin AST ALT Alkaline Phosphatase Total Creatine Kinase Troponin I High Sens Total Protein Albumin Lipase TSH 0.70 Free T4 1.10 Urine Color Urine Appearance Urine pH Ur Specific [place] Urine Protein Urine Glucose (UA) Urine Ketones Urine Blood Urine Nitrite Ur Leukocyte Esterase Urine RBC Urine WBC Ur Squamous Epith Cells Urine Bacteria Hyaline Casts Urine Test CSF Tube Number CSF Volume CSF Appearance CSF Color CSF WBC CSF RBC CSF Lymphocytes CSF Monocytes % CSF Appearance (b) CSF Glucose CSF Total Protein Vancomycin Trough Random Vancomycin Urine Opiates Screen Urine Fentanyl Screen Ur Barbiturates Screen Ur Phencyclidine Scrn Ur Amphetamines Screen U Benzodiazepines Scrn Urine Cocaine Screen U Marijuana (THC) Screen Ethyl Alcohol Respiratory Panel [place] See Note Adenovirus (Rapid PCR) Not Detected B.pert (TEM-PCR) Not Detected B.parapertussis DNA PCR Not Detected C. pneumoniae DNA (PCR) Not Detected Coronavirus OC43 (PCR) Not Detected Coronavirus HKU1 (PCR) Not Detected Coronavirus 229E (PCR) Not Detected Coronavirus NL63 (PCR) Not Detected Human Metapneumovir PCR Not Detected Influenza A (RT-PCR) Not Detected Influenza B (RT-PCR) Not Detected M. pneumoniae (PCR) Not Detected Parainfluenza 1 (PCR) Not Detected Parainfluenza 2 (PCR) Not Detected Parainfluenza 3 (PCR) Not Detected Parainfluenza 4 (PCR) Not Detected RSV (PCR) Not Detected Entero/Rhino (PCR) Not Detected SARS-CoV-2 RNA (RT-PCR) Not Detected 08/17/23 08/17/23 08/17/23 04:43 04:47 Unknown WBC 15.6 H RBC 4.29 Hgb 13.7 Hct 41.3 MCV 96.3 MCH 31.9 MCHC 33.2 RDW 13.1 Plt Count 266 D MPV 11.5 Immature Gran % (Auto) 0.3 Neut % (Auto) 73.5 H Lymph % (Auto) 15.9 L [place] % (Auto) 10.1 Eos % (Auto) 0.0 Baso % (Auto) 0.2 Lymph # (Auto) 2.5 Quay # (Auto) 1.6 H Eos # (Auto) 0.0 Baso # (Auto) 0.0 Abs Immat Gran (auto) 0.04 H Absolute Neuts (auto) 11.5 H Absolute Nucleated RBC 0.000 Nucleated RBC % (auto) 0.0 Smear Tech's Comments Hold Purple Top PT INR APTT Hold Blue Top O2 Saturation ABG pH at Pt Temp ABG pCO2 at Pt Temp ABG pO2 at Pt Temp ABG HCO3 ABG Base Excess (Actual) VBG pH 7.46 H VBG pCO2 24 VBG pO2 125 VBG HCO3 17 L VBG O2 Saturation 99.0 VBG Base Excess -4.6 Sodium 140 Potassium 4.1 D Chloride 113 H Carbon Dioxide 15 L Anion Gap 16 BUN 16 Creatinine 1.06 Estim Creat Clear Calc 76.1 Estimated GFR 59 POC Glucose Random Glucose 158 H Lactic Acid Lactic Acid F/U @ 2Hr Lactic Acid F/U @ 4Hr Calcium 8.2 L D Phosphorus 3.1 Magnesium 2.4 Total Bilirubin 0.4 Direct Bilirubin AST 397 H ALT 135 H Alkaline Phosphatase 53 Total Creatine Kinase Troponin I High Sens Total Protein 6.1 L Albumin 3.2 L Lipase TSH Free T4 Urine Color Urine Appearance Urine pH Ur Specific [place] Urine Protein Urine Glucose (UA) Urine Ketones Urine Blood Urine Nitrite Ur Leukocyte Esterase Urine RBC Urine WBC Ur Squamous Epith Cells Urine Bacteria Hyaline Casts Urine Test NEGATIVE CSF Tube Number CSF Volume CSF Appearance CSF Color CSF WBC CSF RBC CSF Lymphocytes CSF Monocytes % CSF Appearance (b) CSF Glucose CSF Total Protein Vancomycin Trough Random Vancomycin Urine Opiates Screen Urine Fentanyl Screen Ur Barbiturates Screen Ur Phencyclidine Scrn Ur Amphetamines Screen U Benzodiazepines Scrn Urine Cocaine Screen U Marijuana (THC) Screen Ethyl Alcohol Respiratory Panel [place] Adenovirus (Rapid PCR) B.pert (TEM-PCR) B.parapertussis DNA PCR C. pneumoniae DNA (PCR) Coronavirus OC43 (PCR) Coronavirus HKU1 (PCR) Coronavirus 229E (PCR) Coronavirus NL63 (PCR) Human Metapneumovir PCR Influenza A (RT-PCR) Influenza B (RT-PCR) M. pneumoniae (PCR) Parainfluenza 1 (PCR) Parainfluenza 2 (PCR) Parainfluenza 3 (PCR) Parainfluenza 4 (PCR) RSV (PCR) Entero/Rhino (PCR) SARS-CoV-2 RNA (RT-PCR) 08/18/23 08/18/23 08/19/23 04:28 04:34 05:05 WBC 13.7 H 13.8 H RBC 3.88 L 3.33 L Hgb 12.4 10.7 L Hct 37.9 32.6 L MCV 97.7 97.9 MCH 32.0 32.1 MCHC 32.7 32.8 RDW 13.2 13.0 Plt Count 250 225 MPV 11.1 11.3 Immature Gran % (Auto) 0.4 0.7 H Neut % (Auto) 58.7 50.5 Lymph % (Auto) 32.7 42.0 H Qu[place] % (Auto) 7.9 6.4 Eos % (Auto) 0.1 0.1 Baso % (Auto) 0.2 0.3 Lymph # (Auto) 4.5 5.8 H [place] # (Auto) 1.1 0.9 Eos # (Auto) 0.0 0.0 Baso # (Auto) 0.0 0.0 Abs Immat Gran (auto) 0.05 H 0.09 H Absolute Neuts (auto) 8.0 7.0 Absolute Nucleated RBC 0.000 0.000 Nucleated RBC % (auto) 0.0 0.0 Smear Tech's Comments VERIFIED VERIFIED Hold Purple Top PT INR APTT Hold Blue Top O2 Saturation ABG pH at Pt Temp ABG pCO2 at Pt Temp ABG pO2 at Pt Temp ABG HCO3 ABG Base Excess (Actual) VBG pH 7.50 H VBG pCO2 32 VBG pO2 47 VBG HCO3 25 VBG O2 Saturation 80.0 VBG Base Excess 2.8 Sodium 143 143 Potassium 4.0 3.8 Chloride 111 H 110 H Carbon Dioxide 20 L 24 Anion Gap 16 13 BUN 12 12 Creatinine 0.79 0.71 Estim Creat Clear Calc 108.0 121.6 Estimated GFR > 60 > 60 POC Glucose Random Glucose 99 87 Lactic Acid Lactic Acid F/U @ 2Hr Lactic Acid F/U @ 4Hr Calcium 8.5 8.3 L Phosphorus 2.8 1.9 L Magnesium 2.5 2.3 Total Bilirubin 0.4 0.6 Direct Bilirubin AST 296 H 247 H ALT 110 H 96 H Alkaline Phosphatase 62 46 Total Creatine Kinase 60260 H 55702 H Troponin I High Sens Total Protein 5.5 L 5.3 L Albumin 3.0 L 2.8 L Lipase TSH Free T4 Urine Color Urine Appearance Urine pH Ur Specific [place] Urine Protein Urine Glucose (UA) Urine Ketones Urine Blood Urine Nitrite Ur Leukocyte Esterase Urine RBC Urine WBC Ur Squamous Epith Cells Urine Bacteria Hyaline Casts Urine Test CSF Tube Number CSF Volume CSF Appearance CSF Color CSF WBC CSF RBC CSF Lymphocytes CSF Monocytes % CSF Appearance (b) CSF Glucose CSF Total Protein Vancomycin Trough 10.1 Random Vancomycin Urine Opiates Screen Urine Fentanyl Screen Ur Barbiturates Screen Ur Phencyclidine Scrn Ur Amphetamines Screen U Benzodiazepines Scrn Urine Cocaine Screen U Marijuana (THC) Screen Ethyl Alcohol Respiratory Panel [place] Adenovirus (Rapid PCR) B.pert (TEM-PCR) B.parapertussis DNA PCR C. pneumoniae DNA (PCR) Coronavirus OC43 (PCR) Coronavirus HKU1 (PCR) Coronavirus 229E (PCR) Coronavirus NL63 (PCR) Human Metapneumovir PCR Influenza A (RT-PCR) Influenza B (RT-PCR) M. pneumoniae (PCR) Parainfluenza 1 (PCR) Parainfluenza 2 (PCR) Parainfluenza 3 (PCR) Parainfluenza 4 (PCR) RSV (PCR) Entero/Rhino (PCR) SARS-CoV-2 RNA (RT-PCR) 08/19/23 08/19/23 08/19/23 05:16 17:53 20:05 WBC RBC Hgb Hct MCV MCH MCHC RDW Plt Count MPV Immature Gran % (Auto) Neut % (Auto) Lymph % (Auto) [place] % (Auto) Eos % (Auto) Baso % (Auto) Lymph # (Auto) [place] # (Auto) Eos # (Auto) Baso # (Auto) Abs Immat Gran (auto) Absolute Neuts (auto) Absolute Nucleated RBC Nucleated RBC % (auto) Smear Tech's Comments Hold Purple Top PT INR APTT Hold Blue Top O2 Saturation ABG pH at Pt Temp ABG pCO2 at Pt Temp ABG pO2 at Pt Temp ABG HCO3 ABG Base Excess (Actual) VBG pH 7.58 H VBG pCO2 30 VBG pO2 47 VBG HCO3 28 H VBG O2 Saturation 81.0 VBG Base Excess 7.1 Sodium 143 Potassium 3.3 Chloride 109 H Carbon Dioxide 23 Anion Gap 14 BUN 12 Creatinine 0.70 Estim Creat Clear Calc 123.4 Estimated GFR > 60 POC Glucose Random Glucose 102 Lactic Acid Lactic Acid F/U @ 2Hr Lactic Acid F/U @ 4Hr Calcium 8.4 Phosphorus 2.9 Magnesium 2.3 Total Bilirubin Direct Bilirubin AST ALT Alkaline Phosphatase Total Creatine Kinase Troponin I High Sens Total Protein Albumin 3.0 L Lipase TSH Free T4 Urine Color Urine Appearance Urine pH Ur Specific [place] Urine Protein Urine Glucose (UA) Urine Ketones Urine Blood Urine Nitrite Ur Leukocyte Esterase Urine RBC Urine WBC Ur Squamous Epith Cells Urine Bacteria Hyaline Casts Urine Test CSF Tube Number CSF Volume CSF Appearance CSF Color CSF WBC CSF RBC CSF Lymphocytes CSF Monocytes % CSF Appearance (b) CSF Glucose CSF Total Protein Vancomycin Trough Random Vancomycin 11.6 L Urine Opiates Screen Urine Fentanyl Screen Ur Barbiturates Screen Ur Phencyclidine Scrn Ur Amphetamines Screen U Benzodiazepines Scrn Urine Cocaine Screen U Marijuana (THC) Screen Ethyl Alcohol Respiratory Panel [place] Adenovirus (Rapid PCR) B.pert (TEM-PCR) B.parapertussis DNA PCR C. pneumoniae DNA (PCR) Coronavirus OC43 (PCR) Coronavirus HKU1 (PCR) Coronavirus 229E (PCR) Coronavirus NL63 (PCR) Human Metapneumovir PCR Influenza A (RT-PCR) Influenza B (RT-PCR) M. pneumoniae (PCR) Parainfluenza 1 (PCR) Parainfluenza 2 (PCR) Parainfluenza 3 (PCR) Parainfluenza 4 (PCR) RSV (PCR) Entero/Rhino (PCR) SARS-CoV-2 RNA (RT-PCR) 08/20/23 08/20/23 08/20/23 05:15 05:18 07:51 WBC 10.9 H RBC 3.02 L Hgb 9.6 L Hct 29.1 L MCV 96.4 MCH 31.8 MCHC 33.0 RDW 12.7 Plt Count 195 MPV 11.5 Immature Gran % (Auto) 0.5 H Neut % (Auto) 40.4 L Lymph % (Auto) 50.6 H [place] % (Auto) 7.6 Eos % (Auto) 0.6 Baso % (Auto) 0.3 Lymph # (Auto) 5.5 [place] # (Auto) 0.8 Eos # (Auto) 0.1 Baso # (Auto) 0.0 Abs Immat Gran (auto) 0.05 H Absolute Neuts (auto) 4.4 Absolute Nucleated RBC 0.000 Nucleated RBC % (auto) 0.0 Smear Tech's Comments VERIFIED Hold Purple Top PT 11.4 INR 0.9 APTT 25.7 L Hold Blue Top O2 Saturation ABG pH at Pt Temp ABG pCO2 at Pt Temp ABG pO2 at Pt Temp ABG HCO3 ABG Base Excess (Actual) VBG pH 7.50 H VBG pCO2 36 VBG pO2 54 VBG HCO3 28 H VBG O2 Saturation 84.0 VBG Base Excess 5.4 Sodium 144 Potassium 3.3 Chloride 110 H Carbon Dioxide 23 Anion Gap 14 BUN 15 Creatinine 0.68 Estim Creat Clear Calc 126.1 Estimated GFR > 60 POC Glucose Random Glucose 81 Lactic Acid Lactic Acid F/U @ 2Hr Lactic Acid F/U @ 4Hr Calcium 8.4 Phosphorus 2.6 L Magnesium 2.4 Total Bilirubin 1.0 Direct Bilirubin AST 209 H ALT 91 H Alkaline Phosphatase 37 L Total Creatine Kinase 8395 H Troponin I High Sens Total Protein 5.2 L Albumin 3.2 L Lipase TSH Free T4 Urine Color Urine Appearance Urine pH Ur Specific [place] Urine Protein Urine Glucose (UA) Urine Ketones Urine Blood Urine Nitrite Ur Leukocyte Esterase Urine RBC Urine WBC Ur Squamous Epith Cells Urine Bacteria Hyaline Casts Urine Test CSF Tube Number CSF Volume CSF Appearance CSF Color CSF WBC CSF RBC CSF Lymphocytes CSF Monocytes % CSF Appearance (b) CSF Glucose CSF Total Protein Vancomycin Trough Random Vancomycin Urine Opiates Screen Urine Fentanyl Screen Ur Barbiturates Screen Ur Phencyclidine Scrn Ur Amphetamines Screen U Benzodiazepines Scrn Urine Cocaine Screen U Marijuana (THC) Screen Ethyl Alcohol Respiratory Panel [place] Adenovirus (Rapid PCR) B.pert (TEM-PCR) B.parapertussis DNA PCR C. pneumoniae DNA (PCR) Coronavirus OC43 (PCR) Coronavirus HKU1 (PCR) Coronavirus 229E (PCR) Coronavirus NL63 (PCR) Human Metapneumovir PCR Influenza A (RT-PCR) Influenza B (RT-PCR) M. pneumoniae (PCR) Parainfluenza 1 (PCR) Parainfluenza 2 (PCR) Parainfluenza 3 (PCR) Parainfluenza 4 (PCR) RSV (PCR) Entero/Rhino (PCR) SARS-CoV-2 RNA (RT-PCR) Assessment and Plan Final Anesthetic Review Family History of Problems with Anesthesia: No History of Problems with Anesthesia: No ASA Class: III and Emergency Final Preanesthetic Review: Meds/Allgs Chart Reviewed, Consent Obtained/Reviewed and Anes Risks/Benef Reviewed Patient Risk: Low Procedure Risk: Low Anesthetic Plan Anesthetic Plan: MAC: Disposition: Standard PACU
--- NOTE | 2023-08-20 13:34 | HO.POSTANES ---
Post Anesthesia Evaluation Post Anesthesia Evaluation Date of Service: 08/18/23 Vital Signs: Vital Signs Temp Pulse Resp BP Pulse Ox O2 Del Method O2 Flow Rate 08/20/23 12:00 99.3 F 86 12 113/75 95 Nasal Cannula 2 08/20/23 11:00 99.3 F 65 12 101/54 L 95 Nasal Cannula 2 08/20/23 10:00 99.5 F 88 20 119/96 H 96 Nasal Cannula 2 08/20/23 07:00 99.5 F 77 20 113/72 95 Nasal Cannula 2 08/20/23 06:00 99.5 F 61 13 105/73 96 Nasal Cannula 2 08/20/23 05:00 64 14 110/68 94 Nasal Cannula 2 08/20/23 04:00 99.3 F 64 12 101/73 98 Nasal Cannula 2 08/20/23 03:00 99.3 F 103 H 12 100/61 96 Nasal Cannula 2 08/20/23 02:00 99.3 F 59 13 105/65 96 Nasal Cannula 2 Anesthesia: General Mental Status: Awake Pain Control: Satisfactory Nausea/Vomiting: None Hydration: Adequate Anesthesia-Related Issues: No Anes. Related Issues Comments: she got extubated yesterday, stable b
--- NOTE | 2023-08-20 14:31 | PM.OP ---
Brief Operative Note Date of Service: 08/20/23 Pre-op diagnosis: left forearm compartment syndrome Post-op diagnosis: same Procedure: Irrigation and debridement left forearm with partial delayed closure Implants: None Surgeon: Devang Long MD Anesthesia: MAC Was an Tag Press Operator used for this Procedure?: No Estimated blood loss (mL): 25 IV fluids (mL): 500 Pathology: none sent Condition: stable Disposition: PACU
--- NOTE | 2023-08-20 14:33 | PM.PNORT ---
Subjective Subjective Date of Service: 08/20/23 Principal diagnosis: Extubated. Responsive. C/o left hand numbness. Physical Exam Vital Signs: Vital Signs: Last Vital Signs Temp 99.1 F 08/20/23 13:22 Pulse 90 08/20/23 13:22 Resp 10 L 08/20/23 13:22 BP 128/94 H 08/20/23 13:22 Pulse Ox 98 08/20/23 13:22 O2 Del Method Room Air 08/20/23 13:22 O2 Flow Rate 2 08/20/23 12:00 FiO2 35 08/19/23 07:58 BMI result Body Mass Index 29.3 Extrem: Other: WOund vac holding suction Arm and forearm comparmtents soft Palpable radial pulse Seansation intact dorsum of forearm and anterior upper arm and shoulder. No motopr intact hand hand or elbow. Biceps and deltoid not intact. firing triceps only Procedures Date of Service Date of Service: 08/20/23 Progress Note: A&P Assessment and plan (1) Compartment syndrome of forearm: Status: Acute Assessment and Plan: S/p compartment syndrome with 3 compartment release. Recently extubated but proximal nerve dysfunction present so unable to assess forearm function at this time. OR later today for debridement. Time Spent With Patient Time: Total time managing care of this patient today ____ minutes. Quality Stroke Does the patient have a stroke diagnosis?: No VTE Prior VTE?: No VTE Risk Level:: Medical - moderate - high VTE Device Contraindication: N/A - Device Ordered VTE Drug Contraindication: Treatment Not Indicated
--- NOTE | 2023-08-20 15:03 | PM.CCPN ---
Subjective Subjective Date of Service: 08/20/23 Interval History: 33-year-old female presented unresponsive requiring intubation was encephalopathic based on cocaine and fentanyl and as a result of the position that she was in developed a left upper extremity compartment syndrome with diminished distal pulses and no extensive nerve involvement and she required an emergency fasciotomy she still remains dysfunctional it in terms of most the arm being numb with a diminished motor capability but nonetheless viable but there was extensive muscle damage with 35,000 CPK secondary acute renal failure with creatinine is over 3 which have completely normalized at this point and she has had at least 4 subsequent OR debridements of necrotic muscle in that left upper extremity but the rhabdomyolysis is resolving she initially had acute myocarditis / cardiomyopathy with a 20% ejection fraction with extensive akinesis and that is now recovering her ejection fraction is probably at least 35-40% and improving and from a lung standpoint she had extensive left lung consolidation there probably was some degree of lung infarct but definitely extensive aspiration pneumonitis she has now since yesterday extubated with dramatic improvement her respiratory insufficiency initial tachycardic heart rates in sinus rhythm were about 150 she now has a resting heart rates of 60 resolving cardiomyopathy resolving respiratory insufficiency completely normalized renal function and limb salvage through fasciotomy of that left upper extremity followed by Dr. Long Critical Care Time (minutes): 45 Physical Exam Vital Signs: Vital Signs: Last Vital Signs Temp 99.1 F 08/20/23 13:22 Pulse 90 08/20/23 13:22 Resp 10 L 08/20/23 13:22 BP 128/94 H 08/20/23 13:22 Pulse Ox 98 08/20/23 13:22 O2 Del Method Room Air 08/20/23 13:22 O2 Flow Rate 2 08/20/23 12:00 FiO2 35 08/19/23 07:58 BMI result Body Mass Index 29.3 excellent cognitive function and nonfocal neurologically just left upper extremity dysfunction based on the compartment syndrome good bilateral carotid upstrokes no neck vein distension and by echo much improved left ventricular ejection fraction no adventitious lung sounds abdomen is benign no organomegaly nontender and she passed her swallow exam qualify for diet Objective Data Labs 08/20/23 05:15 08/20/23 05:15 Labs: Laboratory Results - last 24 hr 08/19/23 08/19/23 08/20/23 17:53 20:05 05:15 WBC 10.9 H RBC 3.02 L Hgb 9.6 L Hct 29.1 L MCV 96.4 MCH 31.8 MCHC 33.0 RDW 12.7 Plt Count 195 MPV 11.5 Immature Gran % (Auto) 0.5 H Neut % (Auto) 40.4 L Lymph % (Auto) 50.6 H [place] % (Auto) 7.6 Eos % (Auto) 0.6 Baso % (Auto) 0.3 Lymph # (Auto) 5.5 H [place] # (Auto) 0.8 Eos # (Auto) 0.1 Baso # (Auto) 0.0 Abs Immat Gran (auto) 0.05 H Absolute Neuts (auto) 4.4 Absolute Nucleated RBC 0.000 Nucleated RBC % (auto) 0.0 Smear Tech's Comments VERIFIED PT INR APTT VBG pH VBG pCO2 VBG pO2 VBG HCO3 VBG O2 Saturation VBG Base Excess Sodium 143 144 Potassium 3.3 3.3 Chloride 109 H 110 H Carbon Dioxide 23 23 Anion Gap 14 14 BUN 12 15 Creatinine 0.70 0.68 Estim Creat Clear Calc 123.4 126.1 Estimated GFR > 60 > 60 Random Glucose 102 81 Calcium 8.4 8.4 Phosphorus 2.9 2.6 L Magnesium 2.3 2.4 Total Bilirubin 1.0 AST 209 H ALT 91 H Alkaline Phosphatase 37 L Total Creatine Kinase 8395 H Total Protein 5.2 L Albumin 3.0 L 3.2 L Random Vancomycin 11.6 L 08/20/23 08/20/23 05:18 07:51 WBC RBC Hgb Hct MCV MCH MCHC RDW Plt Count MPV Immature Gran % (Auto) Neut % (Auto) Lymph % (Auto) Green % (Auto) Eos % (Auto) Baso % (Auto) Lymph # (Auto) Green # (Auto) Eos # (Auto) Baso # (Auto) Abs Immat Gran (auto) Absolute Neuts (auto) Absolute Nucleated RBC Nucleated RBC % (auto) Smear Tech's Comments PT 11.4 INR 0.9 APTT 25.7 L VBG pH 7.50 H VBG pCO2 36 VBG pO2 54 VBG HCO3 28 H VBG O2 Saturation 84.0 VBG Base Excess 5.4 Sodium Potassium Chloride Carbon Dioxide Anion Gap BUN Creatinine Estim Creat Clear Calc Estimated GFR Random Glucose Calcium Phosphorus Magnesium Total Bilirubin AST ALT Alkaline Phosphatase Total Creatine Kinase Total Protein Albumin Random Vancomycin Microbiology Microbiology Results: Microbiology 08/17/23 05:25 Arm Gram Stain - Final 08/17/23 05:25 Arm Routine Culture - Final No growth. 08/16/23 08:25 Cerebrospinal Fluid Gram Stain - Final 08/16/23 08:25 Cerebrospinal Fluid CSF Examination - Final 08/16/23 08:25 Cerebrospinal Fluid Fluid Description - Final 08/16/23 08:25 Cerebrospinal Fluid CSF Culture - Final No growth after 3 days. 08/16/23 07:47 Blood - Venous Blood Culture - Preliminary No growth after 48 hours. 08/16/23 07:22 Blood - Venous Blood Culture - Preliminary No growth after 48 hours. Progress Note: A&P Assessment and plan (1) Compartment syndrome of forearm: Status: Acute (2) Secondary rhabdomyolysis: Status: Acute (3) Aspiration pneumonia: Status: Acute (4) Seizure cerebral: Status: Acute (5) Secondary nonischemic congestive cardiomyopathy: Status: Acute (6) 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: Status: Acute (7) Pneumonia involving left lung: Status: Acute (8) Rhabdomyolysis: Status: Acute (9) Troponin I above reference range: Status: Acute (10) Acidosis, lactic: Status: Acute (11) Acute renal failure: Status: Acute (12) Fever: Status: Acute (13) Altered mental status: Status: Acute (14) Substance abuse: Status: Acute (15) Upper respiratory tract infection: Status: Acute (16) Flank pain: Status: Acute (17) Dysuria: Status: Acute (18) Wheezing: Status: Acute (19) Respiratory infection: Status: Acute (20) Cough: Status: Acute Plan doing beautifully postop and passed her swallow exam and she is now going to start a regular diet cardiomyopathy resolving respiratory insufficiency resolving acute renal failure and rhabdomyolysis resolved and Orthopedics will continue to follow her left upper extremity with the wound VAC and I am hopeful that she will recover arm function in a from the neuropathy over the weeks to come Quality Stroke Does the patient have a stroke diagnosis?: No VTE Prior VTE?: No VTE Risk Level:: Medical - moderate - high VTE Device Contraindication: N/A - Device Ordered VTE Drug Contraindication: Treatment Not Indicated
[2023-08-20 18:17] LABS: Vancomycin Random 18.1 mcg/mL (15-20)
[2023-08-21] VITALS (8 sets, daily range): BP systolic 110–142; BP diastolic 65–97; PULSE 72–94; RESP 19–20; TEMP 36.3–36.8; O2SAT 93–97
--- NOTE | 2023-08-21 09:09 | HO.VASCPN ---
Subjective Subjective Date of Service: 08/21/23 Patient reports: no new complaints, feels better and still having pain Interval history: Complex 33-year-old female presents for follow-up evaluation regarding her left upper extremity. Events over the past few days noted. She was taken back to the OR yesterday for repeat debridement and partial closure. She Gideon appears to be doing relatively well. She is currently with a wound VAC and the arm is [place] wrapped. She is now for vascular follow-up. Physical Exam Vital Signs: Vital Signs: Last Vital Signs Temp 97.8 F 08/21/23 07:14 Pulse 85 08/21/23 07:14 Resp 20 08/21/23 07:14 BP 131/97 H 08/21/23 07:14 Pulse Ox 96 08/21/23 07:14 O2 Del Method Room Air 08/21/23 07:14 O2 Flow Rate 1 08/20/23 15:13 FiO2 35 08/19/23 07:58 BMI result Body Mass Index 29.3 Const: General: cooperative, healthy appearing and no acute distress Orientation/consciousness: oriented to person, oriented to place and oriented to time HEENT: Head: Yes normal to inspection Neck: Carotids: no bruits Chest: Chest palpation & inspection: normal inspection of the chest Resp: Effort & Inspection: normal respiratory effort and able to speak in complete sentences Auscultation: clear to auscultation bilaterally Cardio: Other: Palpable left brachial and ulnar pulse. Fingers warm with good capillary refill. Difficult to assess motor and sensation. She does have some finger movement. Rate: regular rate Heart sounds: S1 normal heart sound present and S2 normal heart sound present GI: Inspection: Yes normal to inspection Skin: General skin exam: no rashes or lesions noted Wounds: no wounds Neuro: General: oriented to person, oriented to place, oriented to time and CN's II-XI intact bilaterally Extrem: General: Yes normal to inspection, Yes full ROM and Yes no clubbing, cyanosis or edema Psych: Appearance: grossly normal and well kempt Speech and movement: Normal speech and movement present Affect: normal affect Progress Note: A&P Assessment and plan (1) Compartment syndrome of forearm: Status: Acute Assessment and Plan: In short patient appears to be doing significantly better status post release of left upper extremity compartment syndrome. Motor and sensation is difficult to ascertain. Arterial supply does appear intact. Will continue to peripherally follow with you. Thank you for allowing us to assist in her care. If there are questions or concerns please do not hesitate to contact us. Time Spent With Patient Time: Total time managing care of this patient today ____ minutes. Procedures Date of Service Date of Service: 08/21/23 Quality Stroke Does the patient have a stroke diagnosis?: No VTE Prior VTE?: No VTE Risk Level:: Medical - moderate - high VTE Device Contraindication: N/A - Device Ordered VTE Drug Contraindication: Treatment Not Indicated
--- NOTE | 2023-08-21 09:23 | PM.PNORT ---
Subjective Subjective Date of Service: 08/21/23 Principal diagnosis: Extubated. Responsive. C/o left hand numbness. Interval history: Transferred out of ICU Physical Exam Vital Signs: Vital Signs: Last Vital Signs Temp 97.8 F 08/21/23 07:14 Pulse 85 08/21/23 07:14 Resp 20 08/21/23 07:14 BP 131/97 H 08/21/23 07:14 Pulse Ox 96 08/21/23 07:14 O2 Del Method Room Air 08/21/23 07:14 O2 Flow Rate 1 08/20/23 15:13 FiO2 35 08/19/23 07:58 BMI result Body Mass Index 29.3 Extrem: Other: Wound vac holding suction Sensation intact over anterior and medial arm Markedly diminished sensation over lateral deltoid and entire forearm. Triceps and lattisimus intact but deltoid/biceps and all distal motor funtion not present Procedures Date of Service Date of Service: 08/21/23 Progress Note: A&P Assessment and plan (1) Compartment syndrome of forearm: Status: Acute Assessment and Plan: Wound vac holding and intact Will return to OR tomorrow for wound vach change/debridement Sling (2) Traumatic brachial plexopathy: Status: Acute Assessment and Plan: Likely traumatic brachial plexopathy with triceps intact Plan Will continue to observe Time Spent With Patient Time: Total time managing care of this patient today ____ minutes. Quality Stroke Does the patient have a stroke diagnosis?: No VTE Prior VTE?: No VTE Risk Level:: Medical - moderate - high VTE Device Contraindication: N/A - Device Ordered VTE Drug Contraindication: Treatment Not Indicated
--- NOTE | 2023-08-21 09:41 | MHC.RECOVRN ---
This junior copywriter met with patient, patient laying in bed, visual grimace. Pt reports 8/10 pain. Pt denies opiate withdrawal, denies cravings. Pt offered MTD, pt reports is unsure if wants to take it. This junior copywriter to return to reassess.
--- NOTE | 2023-08-21 12:13 | HO.PM.IMPN ---
Subjective Subjective Date of Service: 08/21/23 Interval History: Seen and evaluated this morning Reporting pain in [place] still has no sensation on her finger tips Constipated on room air Review of Systems Review of Systems: Yes all other systems are reviewed and are negative Physical Exam Vital Signs: Vital Signs: Last Vital Signs Temp 98.2 F 08/21/23 11:08 Pulse 82 08/21/23 11:08 Resp 20 08/21/23 11:08 BP 124/82 08/21/23 11:08 Pulse Ox 95 08/21/23 11:08 O2 Del Method Room Air 08/21/23 11:08 O2 Flow Rate 1 08/20/23 15:13 FiO2 35 08/19/23 07:58 BMI result Body Mass Index 29.3 Const: Other: Constitutional : Awake, interactive, not in distress Neck : Normal inspection, Supple Cardiovascular : RRR, no JVP, no lower extremity edema Respiratory : good bilateral air entry, no crackles, wheezes or rhonchi Gastrointestinal: soft, lax, Normal bowel sounds, Non tender Skin : Warm, Dry, LUE surgical wounds covered with dressing, wound vac in place Neurological : Alert & oriented x3, LUE warm fingers but no sensation or motor function, fair sensation over LUE forearm-12 within normal Objective Data Active Medications Hydromorphone HCl (Hydromorphone Hcl 2 Mg/Ml Vial) 2 mg IVPUSH Q4H JEANINE; Protocol Last Admin: 08/21/23 09:50 Dose: 2 mg Documented By: EMANUEL Hydromorphone HCl (Hydromorphone Hcl 1 Mg/Ml Syringe) 1 mg IVPUSH Q2H PRN; Protocol PRN Reason: Pain, Severe (Pain Scale 7-10) Last Admin: 08/21/23 08:04 Dose: 1 mg Documented By: EMANUEL Levetiracetam (Keppra) 500 mg in 100 mls @ 400 mls/hr IV Q12H JEANINE Last Infusion: 08/21/23 10:51 Dose: Infused Documented By: EMANUEL Meropenem 1 gm/ Sodium (Chloride) 100 mls @ 200 mls/hr IV Q8H JEANINE Last Infusion: 08/21/23 06:01 Dose: Infused Documented By: TARAH Vancomycin HCl 750 mg/ Sodium (Chloride) 265 mls @ 265 mls/hr IV Q8H [facility] Last Infusion: 08/21/23 05:29 Dose: Infused Documented By: TARAH Methadone HCl (Methadone Hcl 20 Mg/2 Ml Oral.Conc) 30 mg PO DAILY [facility] Last Admin: 08/21/23 09:59 Dose: Not Given Documented By: EMANUEL Non-Admin Reason: Patient Refused Midazolam HCl (Midazolam Hcl/Pf 2 Mg/2 Ml Vial) 2 mg IVPUSH Q15M PRN PRN Reason: Ventilator synchrony Last Admin: 08/16/23 12:21 Dose: 2 mg Documented By: JAYMIE Pantoprazole Sodium (Pantoprazole Sodium 40 Mg/10 Ml Vial) 40 mg IVPUSH BID@0630,1630 [facility] Last Admin: 08/21/23 05:20 Dose: 40 mg Documented By: TARAH Pharmacy Consult (Consult Rx Vancomycin Dosing) 1 each MISCELLANE DAILY PRN PRN Reason: Consult order Sodium Chloride (0.9 % Sodium Chloride Flush 3 Ml Syringe) 3 ml IVFLUSH QSHIFT [facility] Last Admin: 08/21/23 09:51 Dose: 3 ml Documented By: EMANUEL Labs 08/21/23 06:43 08/21/23 06:43 Labs: Laboratory Results - last 24 hr 08/20/23 08/21/23 08/21/23 18:01 06:43 10:35 MCV 95.3 MCH 32.1 MCHC 33.7 RDW 12.6 Plt Count 243 MPV 11.6 Absolute Nucleated RBC 0.000 Nucleated RBC % (auto) 0.0 Anion Gap 14 Estim Creat Clear Calc 133.9 Estimated GFR > 60 Random Glucose 94 Calcium 8.5 Total Bilirubin 0.8 Direct Bilirubin 0.3 AST 137 H ALT 84 H Alkaline Phosphatase 41 Total Creatine Kinase 4585 H Total Protein 5.0 L Albumin 2.9 L Random Vancomycin 18.1 14.3 L Microbiology Microbiology Results: Microbiology 08/16/23 07:47 Blood Culture - Final Blood - Venous No growth after 5 days. 08/16/23 07:22 Blood Culture - Final Blood - Venous No growth after 5 days. Assessment and Plan (1) Traumatic brachial plexopathy: Status: Acute (2) Compartment syndrome of forearm: Status: Acute (3) Secondary rhabdomyolysis: Status: Acute (4) Aspiration pneumonia: Status: Acute (5) Seizure cerebral: Status: Acute (6) Secondary nonischemic congestive cardiomyopathy: Status: Acute (7) Acute renal failure: Status: Acute Plan 33 years old lady who presented with AMS from overdose developed Compartment, rhabdo, aspiration, CMP requring ICU admission and intubation with 4 surgeries to relieve the compartment. Compartment syndrome LUE forearm Improving ORthopedic team following Narcotics for pain wound team following, wound vac in place acute Peripheral neuropathy 2/2 compartment pressure relieved by surgery get neurology evaluation New onset acute Cardiomyopathy likely from hypoxia Echo on 08/17 showed 20% repeat Echo per ICU showed improvement Get cardiology evaluation Aspiration pneumonia Continue IV Abx of Vanco and Meropenem cultures negative now on RA consider change to PO follow clinical course Constipation Laxatives Drug abuse Addiction team following; started on Methadone New onset seizure Continue Keppra Q12 pending Neurology eval DVT PPx SCDs The patient will need overnight hospital stay for treatment of compartment syndrome pending possible re-OP, cardiomyopathy and seizure eval by specialists pending safe discharge plan as well. Time Spent With Patient Time: Total time managing care of this patient today ____ minutes. Quality Stroke Does the patient have a stroke diagnosis?: No VTE Prior VTE?: No VTE Risk Level:: Medical - moderate - high VTE Device Contraindication: N/A - Device Ordered VTE Drug Contraindication: Treatment Not Indicated
[2023-08-21 12:18] LABS: Thyroglobulin Antibodies 160 IU/mL (< or = 1); Thyroid Peroxidase Antibodies 26 IU/mL (<9)
--- NOTE | 2023-08-21 12:19 | HE.PHANOTE ---
Vancomycin Dosing Level 14.3 today. Continue current regimen. Next level 08/22 @ 1000. Sumi EisenbergD
--- NOTE | 2023-08-21 15:53 | PM.NEUROCN ---
History of Present Illness Data of Consult Service Date: 08/21/23 Primary Care Provider: Vivian Skinner MD HPI Reason for consult: Seizure and weakness 33 years old woman with recent admission to ICU after she was found unresponsive at home apparently due to polysubstance abuse including fentanyl and cocaine. Family member found her in flat position with both arms up eyes staring but no convulsion. She was unable to communicate with her and called 911 and she was brought to hospital. She was not known to have any seizures in the past. Presently she was feeling better but complaining of left hand and arm weakness. Review of Systems Review of Systems: No recent trauma other than related to this event. REPLACED BY [facility] Past Medical History Medical History Substance abuse Social History Social History Household Members: Family and Children Household Members Other:: Parents, siblings, son Housing: House Do you presently have visiting nurse or other home services: No Unable to assess alcohol history related to: Unable to respond Alcohol intake: current Alcohol intake frequency: 0-2 drinks per day Patient Tobacco Use Status: Current someday Tobacco user Tobacco use type: Cigarette Use of substances other than those prescribed or required for medical reasons: Yes Substance Use Type: Heroin Substance Use Frequency: Occasionally Last Used Substance: Weeks (ago) Currently Displaying Signs/Symptoms of Drug Intoxication Withdrawal: No Have you been hit, kicked, punched, or otherwise hurt by someone within the past year? If so, by whom?: No Do you feel safe in your current relationship?: No Current Relationship Is there a partner from a previous relationship who is making you feel unsafe now?: No Are you made to feel afraid or neglected: No Advance Directives: No Do you have thoughts of harming others: None Do you have a plan to hurt others: No Plan Recently lost weight without trying: No How much weight loss: Not applicable Eating poorly because of decreased appetite: No Nutrition screen score: 0 Nutrition Risks: No Nutritional Risk Patient : No : No Poor oral hygiene: No Meds Allergies Allergy/AdvReac Type Severity Reaction Status Date / Time No Known Allergies Allergy Verified 04/24/23 13:48 Active Medications: Current Medications Docusate Sodium (Docusate Sodium 100 Mg Capsule) 100 mg PO BID [facility] Last Admin: 08/21/23 13:08 Dose: 100 mg Hydromorphone HCl (Hydromorphone Hcl 2 Mg/Ml Vial) 2 mg IVPUSH Q4H [facility]; Protocol Last Admin: 08/21/23 13:08 Dose: 2 mg Hydromorphone HCl (Hydromorphone Hcl 1 Mg/Ml Syringe) 1 mg IVPUSH Q2H PRN; Protocol PRN Reason: Pain, Severe (Pain Scale 7-10) Last Admin: 08/21/23 14:33 Dose: 1 mg Levetiracetam (Keppra) 500 mg in 100 mls @ 400 mls/hr IV Q12H [facility] Last Infusion: 08/21/23 10:51 Dose: Infused Meropenem 1 gm/ Sodium (Chloride) 100 mls @ 200 mls/hr IV Q8H [facility] Last Infusion: 08/21/23 15:29 Dose: Infused Vancomycin HCl 750 mg/ Sodium (Chloride) 265 mls @ 265 mls/hr IV Q8H [facility] Last Infusion: 08/21/23 14:20 Dose: Infused Lactulose (Lactulose 20 Gm/30 Ml Solution) 20 gm PO TID [facility] Last Admin: 08/21/23 14:42 Dose: Not Given Methadone HCl (Methadone Hcl 20 Mg/2 Ml Oral.Conc) 30 mg PO DAILY [facility] Last Admin: 08/21/23 09:59 Dose: Not Given Pantoprazole Sodium (Pantoprazole Sodium 40 Mg/10 Ml Vial) 40 mg IVPUSH BID@0630,1630 [facility] Last Admin: 08/21/23 05:20 Dose: 40 mg Pharmacy Consult (Consult Rx Vancomycin Dosing) 1 each MISCELLANE DAILY PRN PRN Reason: Consult order Sodium Chloride (0.9 % Sodium Chloride Flush 3 Ml Syringe) 3 ml IVFLUSH QSHIFT [facility] Last Admin: 08/21/23 09:51 Dose: 3 ml Home Medications Medication Instructions Recorded Confirmed Last Taken Type No Known Home Meds 08/16/23 08/16/23 Unknown History Physical Exam Vital Signs: Vital Signs: Last Vital Signs Temp 97.3 F 08/21/23 15:06 Pulse 72 08/21/23 15:06 Resp 20 08/21/23 15:06 BP 110/69 08/21/23 15:06 Pulse Ox 93 08/21/23 15:06 O2 Del Method Room Air 08/21/23 15:06 O2 Flow Rate 1 08/20/23 15:13 FiO2 35 08/19/23 07:58 BMI result Body Mass Index 29.3 Neuro: Other: She is alert and awake with normal spontaneity of speech fluency comprehension and depressed affect. Face is symmetrical. Visual morales are full. Extraocular muscles are intact. She is able to do [id number] test with right hand but not with left. She was not able to lift left arm against gravity and could not move fingers. She was able to wiggle toes and move her legs. Speech was normal. Results Labs 08/21/23 06:43 08/21/23 06:43 Labs: Short CBC 08/21/23 Range/Units 06:43 WBC 13.1 H (4.8-10.8) X10*3/uL Hgb 10.2 L (12.0-16.0) g/dl Hct 30.3 L (37.0-47.0) % Plt Count 243 (160-400) X10*3/uL BMP 08/21/23 06:43 Sodium 141 Potassium 3.0 L Chloride 108 Carbon Dioxide 22 BUN 16 Creatinine 0.64 Calcium 8.5 Cardiac Enzymes 08/21/23 Range/Units 06:43 Total Creatine Kinase 4585 H (26-140) U/L Liver Function 08/21/23 Range/Units 06:43 Total Bilirubin 0.8 (0.0-1.0) mg/dL Direct Bilirubin 0.3 (0.0-0.5) mg/dL AST 137 H (5-31) U/L ALT 84 H (0-31) U/L Alkaline Phosphatase 41 (39-117) U/L Albumin 2.9 L (3.5-5.0) g/dL Head CT did not reveal any significant abnormality Microbiology Microbiology Results: Microbiology 08/16/23 07:47 Blood - Venous Blood Culture - Final No growth after 5 days. 08/16/23 07:22 Blood - Venous Blood Culture - Final No growth after 5 days. 08/17/23 05:25 Arm Gram Stain - Final 08/17/23 05:25 Arm Routine Culture - Final No growth. 08/16/23 08:25 Cerebrospinal Fluid Gram Stain - Final 08/16/23 08:25 Cerebrospinal Fluid CSF Examination - Final 08/16/23 08:25 Cerebrospinal Fluid Fluid Description - Final 08/16/23 08:25 Cerebrospinal Fluid CSF Culture - Final No growth after 3 days. Assessment and Plan (1) Rhabdomyolysis: Qualifiers: Rhabdomyolysis type: non-traumatic Qualified Code(s): M62.82 - Rhabdomyolysis Status: Acute She had quite significant rhabdomyolysis, either due to toxic or mechanical reasons. Symptomatic treatment of left arm weakness is recommended with protection to avoid any further damage. Few weeks to months from now, if weakness would persist, a re-evaluation might be needed. (2) Encephalopathy: Status: Acute Metabolic toxic encephalopathy resulting in unresponsiveness and maybe a convulsion. With no previous history of seizure disorder, at this time no further action is needed as far as seizure disorder is concerned. Time Spent With Patient Time: Total time managing care of this patient today ____ minutes. Procedures Date of Service Date of Service: 08/21/23
[2023-08-22] VITALS (9 sets, daily range): BP systolic 117–149; BP diastolic 69–95; PULSE 81–98; RESP 16–22; TEMP 36.2–37.3; O2SAT 93–100
--- NOTE | 2023-08-22 04:10 | PC.NURSE ---
PT C/O BURNING AND PAIN AT KO[facility]IG SITE.DR TREJO UPDATED. STATES OK TO REMOVE KOENIG CATH.KOENIG REMOVEDAT 0410 WITHOUT ISSUE.PT AWARE TO RING FOR BEDPAN WHEN NEEDED.
--- NOTE | 2023-08-22 10:55 | HE.PHANOTE ---
RE: SHARRI Patients level came back this morning at 15.6. Will continue with dose of 750 mg Q8H. Next draw tomorrow 08/23 @1000. Will see if renal function continues to improve, if so, patient may be able to increase to a dose of 1000 mg Q8H.
--- NOTE | 2023-08-22 12:36 | PM.CNCAR ---
History of Present Illness History of Present Illness Date of Service: 08/22/23 Requesting physician: David Draper Chief complaint: Cardiomyopathy Narrative: 33-year-old female who we have been asked to assess for cardiomyopathy. She was admitted with change in mental status due to overdose and unfortunately had left arm compartment syndrome and rhabdomyolysis. She also had operation pneumonia and has been on antibiotics. She was in the intensive care unit. She has been started on methadone with background of drug abuse. While she was in the ICU she had an echocardiogram performed which showed EF of 20% with regional variation. She does not recall having any chest discomfort shortness of breath. Clinically not in heart failure. I personally reviewed the echocardiogram and to me it appears that the basal and apical segments are moving with mid wall hypokinesis to akinesis. 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 Other than left arm pain she has no complaints. [facility] Past Medical History Medical History Substance abuse Social History Social History Household Members: Family and Children Household Members Other:: Parents, siblings, son Housing: House Do you presently have visiting nurse or other home services: No Unable to assess alcohol history related to: Unable to respond Alcohol intake: current Alcohol intake frequency: 0-2 drinks per day Patient Tobacco Use Status: Current someday Tobacco user Tobacco use type: Cigarette Use of substances other than those prescribed or required for medical reasons: Yes Substance Use Type: Heroin Substance Use Frequency: Occasionally Last Used Substance: Weeks (ago) Currently Displaying Signs/Symptoms of Drug Intoxication Withdrawal: No Have you been hit, kicked, punched, or otherwise hurt by someone within the past year? If so, by whom?: No Do you feel safe in your current relationship?: No Current Relationship Is there a partner from a previous relationship who is making you feel unsafe now?: No Are you made to feel afraid or neglected: No Advance Directives: No Do you have thoughts of harming others: None Do you have a plan to hurt others: No Plan Recently lost weight without trying: No How much weight loss: Not applicable Eating poorly because of decreased appetite: No Nutrition screen score: 0 Nutrition Risks: No Nutritional Risk Patient : No : No Poor oral hygiene: No Meds Allergies Allergy/AdvReac Type Severity Reaction Status Date / Time No Known Allergies Allergy Verified 04/24/23 13:48 Active Medications: Current Medications Docusate Sodium (Docusate Sodium 100 Mg Capsule) 100 mg PO BID [facility] Last Admin: 08/22/23 09:01 Dose: 100 mg Gabapentin (Gabapentin 100 Mg Capsule) 200 mg PO BID [facility] Last Admin: 08/22/23 10:56 Dose: 200 mg Hydromorphone HCl (Hydromorphone Hcl 2 Mg/Ml Vial) 2 mg IVPUSH Q3H [facility]; Protocol Last Admin: 08/22/23 10:57 Dose: 2 mg Hydromorphone HCl (Hydromorphone Hcl 2 Mg Tablet) 2 mg PO Q6H PRN PRN Reason: Pain, Severe (Pain Scale 7-10) Meropenem 1 gm/ Sodium (Chloride) 100 mls @ 200 mls/hr IV Q8H [facility] Last Infusion: 08/22/23 05:49 Dose: Infused Vancomycin HCl 750 mg/ Sodium (Chloride) 265 mls @ 265 mls/hr IV Q8H [facility] Last Infusion: 08/22/23 05:03 Dose: Infused Lactulose (Lactulose 20 Gm/30 Ml Solution) 20 gm PO TID [facility] Last Admin: 08/22/23 10:36 Dose: Not Given Methadone HCl (Methadone Hcl 20 Mg/2 Ml Oral.Conc) 30 mg PO DAILY [facility] Last Admin: 08/22/23 10:36 Dose: Not Given Pantoprazole Sodium (Pantoprazole Sodium 40 Mg/10 Ml Vial) 40 mg IVPUSH BID@0630,1630 [facility] Last Admin: 08/22/23 05:18 Dose: 40 mg Pharmacy Consult (Consult Rx Vancomycin Dosing) 1 each MISCELLANE DAILY PRN PRN Reason: Consult order Sodium Chloride (0.9 % Sodium Chloride Flush 3 Ml Syringe) 3 ml IVFLUSH QSHIFT [facility] Last Admin: 08/22/23 09:03 Dose: 3 ml Home Medications Medication Instructions Recorded Confirmed Last Taken Type No Known Home Meds 08/16/23 08/16/23 Unknown History Physical Exam Vital Signs: Vital Signs: Last Vital Signs Temp 97.2 F 08/22/23 07:49 Pulse 94 08/22/23 07:49 Resp 18 08/22/23 07:49 BP 126/87 08/22/23 07:49 Pulse Ox 95 08/22/23 07:49 O2 Del Method Room Air 08/22/23 07:49 O2 Flow Rate 1 08/20/23 15:13 FiO2 35 08/19/23 07:58 BMI result Body Mass Index 29.3 GENERAL APPEARANCE: in no acute distress. NECK: no carotid bruit, left IJ triple-lumen catheter. SKIN: Small bruise on tip of the nose. HEART: no murmurs, regular rate and rhythm. LUNGS: clear to auscultation bilaterally. ABDOMEN: soft, nontender. EXTREMITIES: Left upper extremity [place] wrapped. PERIPHERAL PULSES: equal. NEUROLOGIC: No gross deficits, AAO X 3 Objective Labs and Meds 08/22/23 07:08 08/22/23 07:08 Lab results: Laboratory Results - last 24 hr 08/22/23 08/22/23 07:08 10:04 WBC 13.0 H RBC 3.32 L Hgb 10.5 L Hct 30.9 L MCV 93.1 MCH 31.6 MCHC 34.0 RDW 12.6 Plt Count 269 MPV 11.2 Absolute Nucleated RBC 0.000 Nucleated RBC % (auto) 0.0 Sodium 142 Potassium 2.7 L Chloride 107 Carbon Dioxide 25 Anion Gap 13 BUN 11 Creatinine 0.54 Estim Creat Clear Calc 158.7 Estimated GFR > 60 Random Glucose 88 Calcium 7.7 L D Total Creatine Kinase 2349 H Vancomycin Trough 15.6 Assessment and Plan (1) Cardiomyopathy: Status: Acute Plan 33-year-old female who has been diagnosed with cardiomyopathy with EF of 20% on background of aspiration, drug overdose and substance abuse. Clinically not in heart failure. Echocardiography appears to be consistent with mid ventricular takotsubo cardiomyopathy. Add carvedilol 3.125 mg twice a day. If he tolerates that then low-dose [place]AST[place]-inhibitor 2.5 mg lisinopril should be added. We will repeat her echocardiogram in couple of months. Overall stable from cardiovascular point of view to go home. Thank you for allowing me to participate in the care of your patient. Please feel free to contact me if you have any questions. Time Spent With Patient Time: Total time managing care of this patient today ____ minutes. Procedures Date of Service Date of Service: 08/22/23
--- NOTE | 2023-08-22 12:47 | HO.ADDICTPRO ---
Subjective Subjective Date of Service: 08/22/23 Reason For Visit: Cardiomyopathy Interim History: Patient seen in follow up Recently stepped down to med tele unit from ICU follow opioid overdose requiring intuabtion and compartment syndrome During ICU admission methadone was started to address possible withdrawal sx, since transfer to medical floor patient has been declining methadone Patient seen in room 459, awake, alert, engaged in interview. Patient grimacing, reporting pain and discomfort. Discussed methadone, she reports that overdose was a one off , and that she had been in recovery for ten years. She reports not wanting methadone, I don't need it . Denies any withdrawal sx. Family waiting in barber to see patient, remainder of interview deferred for now. Chart reviewed, H&P mentions overdose that occurred several days before this one, and ED visit from last summer also for OD. Review of Systems Constitutional: Reports as per HPI (reporting pain arms ) Mental Status Exam Mental Status Exam Level of Consciousness: Awake, Appropriate and Alert Diagnostics Vital Signs (24Hr): Vital Signs - 24 hr 08/21/23 13:22 08/21/23 15:06 08/21/23 19:23 Temperature 97.3 F 98.0 F Pulse Rate 72 91 Respiratory Rate 20 20 Blood Pressure 110/69 118/65 Pulse Oximetry 95 93 95 Oxygen Delivery Method Room Air Room Air Room Air 08/21/23 23:36 08/22/23 04:00 08/22/23 07:49 Temperature 97.5 F 97.9 F 97.2 F Pulse Rate 94 81 94 Respiratory Rate 20 20 18 Blood Pressure 128/81 132/83 126/87 Pulse Oximetry 97 95 95 Oxygen Delivery Method Room Air Room Air Room Air BMI result Body Mass Index 29.3 Labs 08/22/23 07:08 08/22/23 07:08 Labs: Laboratory Results - last 48 hr 08/16/23 08/20/23 08/21/23 09:45 18:01 06:43 WBC 13.1 H RBC 3.18 L Hgb 10.2 L Hct 30.3 L MCV 95.3 MCH 32.1 MCHC 33.7 RDW 12.6 Plt Count 243 MPV 11.6 Absolute Nucleated RBC 0.000 Nucleated RBC % (auto) 0.0 Sodium 141 Potassium 3.0 L Chloride 108 Carbon Dioxide 22 Anion Gap 14 BUN 16 Creatinine 0.64 Estim Creat Clear Calc 133.9 Estimated GFR > 60 Random Glucose 94 Calcium 8.5 Total Bilirubin 0.8 Direct Bilirubin 0.3 AST 137 H ALT 84 H Alkaline Phosphatase 41 Total Creatine Kinase 4585 H Total Protein 5.0 L Albumin 2.9 L Vancomycin Trough Random Vancomycin 18.1 Thyroglobulin Antibody 160 H Thyroid Peroxidase Ab 26 H 08/21/23 08/22/23 08/22/23 10:35 07:08 10:04 WBC 13.0 H RBC 3.32 L Hgb 10.5 L Hct 30.9 L MCV 93.1 MCH 31.6 MCHC 34.0 RDW 12.6 Plt Count 269 MPV 11.2 Absolute Nucleated RBC 0.000 Nucleated RBC % (auto) 0.0 Sodium 142 Potassium 2.7 L Chloride 107 Carbon Dioxide 25 Anion Gap 13 BUN 11 Creatinine 0.54 Estim Creat Clear Calc 158.7 Estimated GFR > 60 Random Glucose 88 Calcium 7.7 L D Total Bilirubin Direct Bilirubin AST ALT Alkaline Phosphatase Total Creatine Kinase 2349 H Total Protein Albumin Vancomycin Trough 15.6 Random Vancomycin 14.3 L Thyroglobulin Antibody Thyroid Peroxidase Ab Imaging Radiology Impressions: ITS Impressions Head CT 08/16/23 07:41 IMPRESSION: No acute midline shift, mass effect or hemorrhage. 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 Given the history recommendation is MRI for full evaluation. Chest CT 08/16/23 07:51 IMPRESSION: 1. Extensive left-sided pneumonia. 2. ET tube in right mainstem bronchus which appears to have been pulled back as seen on a subsequent chest radiograph. 3. No significant abnormality is seen in the abdomen or pelvis. Fleischner guidelines were followed. Abdomen/Pelvis CT 08/16/23 07:52 IMPRESSION: 1. Extensive left-sided pneumonia. 2. ET tube in right mainstem bronchus which appears to have been pulled back as seen on a subsequent chest radiograph. 3. No significant abnormality is seen in the abdomen or pelvis. Fleischner guidelines were followed. Chest X-Ray 08/16/23 08:45 IMPRESSION: ET tube in good position. NG tube in good position. Left lower lobe infiltrate. Venous Duplex 08/17/23 10:43 IMPRESSION: No DVT demonstrated in the left upper extremity from the level of the left IJV to the elbow crease. There may be superficial thrombophlebitis in the cephalic vein. Duplex Scan Upper Extremity Artery 08/17/23 10:53 IMPRESSION: Patent arterial flow throughout the left upper extremity. Monophasic waveforms are seen throughout the left upper extremity which could be due to underlying edema Elbow CT 08/17/23 11:45 IMPRESSION: No acute intracranial process seen. Chronic bilateral maxillary, left frontal and middle ethmoid sinus inflammatory changes. Unremarkable CT left elbow. Head CT 08/17/23 11:45 IMPRESSION: No acute intracranial process seen. Chronic bilateral maxillary, left frontal and middle ethmoid sinus inflammatory changes. Unremarkable CT left elbow. Chest X-Ray 08/17/23 17:35 IMPRESSION: 1. The endotracheal tube terminates at 4 cm above the frank. 2. Left-sided subclavian approach CVC terminates at the level of the cavoatrial junction. No pneumothorax. 3. Unchanged retrocardiac opacities. 4. Stable asymmetric volume loss of the left lung. Chest X-Ray 08/18/23 08:57 IMPRESSION: No interval change Medications Medications Current Medications Docusate Sodium (Docusate Sodium 100 Mg Capsule) 100 mg PO BID [facility] Last Admin: 08/22/23 09:01 Dose: 100 mg Gabapentin (Gabapentin 100 Mg Capsule) 200 mg PO BID [facility] Last Admin: 08/22/23 10:56 Dose: 200 mg Hydromorphone HCl (Hydromorphone Hcl 2 Mg/Ml Vial) 2 mg IVPUSH Q3H [facility]; Protocol Last Admin: 08/22/23 10:57 Dose: 2 mg Hydromorphone HCl (Hydromorphone Hcl 2 Mg Tablet) 2 mg PO Q6H PRN PRN Reason: Pain, Severe (Pain Scale 7-10) Meropenem 1 gm/ Sodium (Chloride) 100 mls @ 200 mls/hr IV Q8H [facility] Last Infusion: 08/22/23 05:49 Dose: Infused Vancomycin HCl 750 mg/ Sodium (Chloride) 265 mls @ 265 mls/hr IV Q8H [facility] Last Infusion: 08/22/23 05:03 Dose: Infused Lactulose (Lactulose 20 Gm/30 Ml Solution) 20 gm PO TID [facility] Last Admin: 08/22/23 10:36 Dose: Not Given Pantoprazole Sodium (Pantoprazole Sodium 40 Mg/10 Ml Vial) 40 mg IVPUSH BID@0630,1630 [facility] Last Admin: 08/22/23 05:18 Dose: 40 mg Pharmacy Consult (Consult Rx Vancomycin Dosing) 1 each MISCELLANE DAILY PRN PRN Reason: Consult order Sodium Chloride (0.9 % Sodium Chloride Flush 3 Ml Syringe) 3 ml IVFLUSH QSHIFT [facility] Last Admin: 08/22/23 09:03 Dose: 3 ml Allergies Allergies Allergy/AdvReac Type Severity Reaction Status Date / Time No Known Allergies Allergy Verified 04/24/23 13:48 Assessment & Plan Assessment & Plan (1) Opioid use disorder: Status: Acute Code(s): F11.90 - Opioid use, unspecified, uncomplicated Plan discontinued methadone per patient request --has not taken in 2 days will continue to follow and provide support during this admission Total time managing care of this patient today _25___ minutes.
--- NOTE | 2023-08-22 13:31 | HO.ANESPROP2 ---
HPI - Anesthesia Eval Consult details Narrative: 33 F for left I and D EF 22 % on formal ECHO , a subsequent POCUS by director enterprise sales showed EF 40 % . Hypokalemia K 2.7 . Aspiration pneumonia on IV antibiotics. Case discussed with the deputy harbormaster and the surgeon as well as the hospitalist . As per cardiology stable from cardiac standpoint . As the case was emergent we started the IV potassium and proceeded to the OR . 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 (Acute) Pneumonia involving left lung (Acute) Rhabdomyolysis (Acute) Troponin I above reference range (Acute) Acidosis, lactic (Acute) Acute renal failure (Acute) Fever (Acute) Altered mental status (Acute) Substance abuse (Acute) Upper respiratory tract infection (Acute) Flank pain (Acute) Dysuria (Acute) Wheezing (Acute) Respiratory infection (Acute) Cough (Acute) Past Medical History Medical History Substance abuse Family History Family history of problems with anesthesia: No Surgical History History of Problems with Anesthesia: No Social History Social History Household Members: Family and Children Household Members Other:: Parents, siblings, son Housing: House Do you presently have visiting nurse or other home services: No Unable to assess alcohol history related to: Unable to respond Alcohol intake: current Alcohol intake frequency: 0-2 drinks per day Patient Tobacco Use Status: Current everyday Tobacco user Tobacco use type: Cigarette Use of substances other than those prescribed or required for medical reasons: Yes Substance Use Type: Heroin Substance Use Frequency: Occasionally Last Used Substance: Weeks (ago) Currently Displaying Signs/Symptoms of Drug Intoxication Withdrawal: No Have you been hit, kicked, punched, or otherwise hurt by someone within the past year? If so, by whom?: No Do you feel safe in your current relationship?: No Current Relationship Is there a partner from a previous relationship who is making you feel unsafe now?: No Are you made to feel afraid or neglected: No Are you DNR?: No Advance Directives: No Advance Directives Information Provided: No (AMS) Advance Directives on File: No Do you have thoughts of harming others: None Do you have a plan to hurt others: No Plan Recently lost weight without trying: No How much weight loss: Not applicable Eating poorly because of decreased appetite: No Nutrition screen score: 0 Nutrition Risks: No Nutritional Risk Patient : No : No Poor oral hygiene: No Meds Allergies Allergy/AdvReac Type Severity Reaction Status Date / Time No Known Allergies Allergy Verified 04/24/23 13:48 Active Medications: Current Medications Docusate Sodium (Docusate Sodium 100 Mg Capsule) 100 mg PO BID [facility] Last Admin: 08/22/23 09:01 Dose: 100 mg Gabapentin (Gabapentin 100 Mg Capsule) 200 mg PO BID [facility] Last Admin: 08/22/23 10:56 Dose: 200 mg Hydromorphone HCl (Hydromorphone Hcl 2 Mg/Ml Vial) 2 mg IVPUSH Q3H [facility]; Protocol Last Admin: 08/22/23 10:57 Dose: 2 mg Hydromorphone HCl (Hydromorphone Hcl 2 Mg Tablet) 2 mg PO Q6H PRN PRN Reason: Pain, Severe (Pain Scale 7-10) Meropenem 1 gm/ Sodium (Chloride) 100 mls @ 200 mls/hr IV Q8H [facility] Last Infusion: 08/22/23 05:49 Dose: Infused Vancomycin HCl 750 mg/ Sodium (Chloride) 265 mls @ 265 mls/hr IV Q8H [facility] Last Infusion: 08/22/23 05:03 Dose: Infused Lactulose (Lactulose 20 Gm/30 Ml Solution) 20 gm PO TID [facility] Last Admin: 08/22/23 10:36 Dose: Not Given Pantoprazole Sodium (Pantoprazole Sodium 40 Mg/10 Ml Vial) 40 mg IVPUSH BID@0630,1630 [facility] Last Admin: 08/22/23 05:18 Dose: 40 mg Pharmacy Consult (Consult Rx Vancomycin Dosing) 1 each MISCELLANE DAILY PRN PRN Reason: Consult order Sodium Chloride (0.9 % Sodium Chloride Flush 3 Ml Syringe) 3 ml IVFLUSH QSHIFT [facility] Last Admin: 08/22/23 09:03 Dose: 3 ml Home Medications Medication Instructions Recorded Confirmed Last Taken Type No Known Home Meds 08/16/23 08/16/23 Unknown History Exam Exam Date and Time: August 22, 2023 1331 Height,Weight and Vital Signs: Height 5 ft 6 in Weight 82.3 kg Last Vital Signs Temp 97.9 F 08/22/23 13:11 Pulse 91 08/22/23 13:11 Resp 16 08/22/23 13:11 BP 132/94 H 08/22/23 13:11 Pulse Ox 95 08/22/23 13:11 O2 Del Method Room Air 08/22/23 13:11 O2 Flow Rate 1 08/20/23 15:13 FiO2 35 08/19/23 07:58 Pertinent Lab Results Pertinent Lab Results: Laboratory Tests 08/16/23 08/16/23 08/16/23 07:04 07:11 08:22 WBC 13.7 H RBC 5.02 D Hgb 16.0 D Hct 48.3 H D MCV 96.2 MCH 31.9 MCHC 33.1 RDW 13.0 Plt Count 373 D MPV 10.7 Immature Gran % (Auto) 1.4 H Neut % (Auto) 76.3 H Lymph % (Auto) 15.0 L [place] % (Auto) 7.1 Eos % (Auto) 0.0 Baso % (Auto) 0.2 Lymph # (Auto) 2.1 [place] # (Auto) 1.0 Eos # (Auto) 0.0 Baso # (Auto) 0.0 Abs Immat Gran (auto) 0.19 H Absolute Neuts (auto) 10.5 H Absolute Nucleated RBC 0.020 H Nucleated RBC % (auto) 0.1 Smear Tech's Comments Hold Purple Top SEE NOTE PT INR APTT Hold Blue Top SEE NOTE O2 Saturation 99.0 ABG pH at Pt Temp 7.37 ABG pCO2 at Pt Temp 23 L ABG pO2 at Pt Temp 199 H ABG HCO3 14 L ABG Base Excess (Actual) -9.1 VBG pH VBG pCO2 VBG pO2 VBG HCO3 VBG O2 Saturation VBG Base Excess Sodium 139 Potassium 5.7 H D Chloride 106 Carbon Dioxide 18 L Anion Gap 21 H BUN 30 H Creatinine 2.13 H Estim Creat Clear Calc 40.0 Estimated GFR 27 POC Glucose 123 H Random Glucose 119 H Lactic Acid 4.3 H* Lactic Acid F/U @ 2Hr Lactic Acid F/U @ 4Hr Calcium 9.6 Phosphorus Magnesium Total Bilirubin 0.4 Direct Bilirubin 0.2 AST 344 H ALT 114 H Alkaline Phosphatase 75 Total Creatine Kinase 33169 H Troponin I High Sens 346.8 H* Total Protein 8.2 H Albumin 4.8 Lipase 24 TSH Free T4 Urine Color Urine Appearance Urine pH Ur Specific [place] Urine Protein Urine Glucose (UA) Urine Ketones Urine Blood Urine Nitrite Ur Leukocyte Esterase Urine RBC Urine WBC Ur Squamous Epith Cells Urine Bacteria Hyaline Casts Urine Test CSF Tube Number CSF Volume CSF Appearance CSF Color CSF WBC CSF RBC CSF Lymphocytes CSF Monocytes % CSF Appearance (b) CSF Glucose CSF Total Protein Vancomycin Trough Random Vancomycin Urine Opiates Screen Urine Fentanyl Screen Ur Barbiturates Screen Ur Phencyclidine Scrn Ur Amphetamines Screen U Benzodiazepines Scrn Urine Cocaine Screen U Marijuana (THC) Screen Ethyl Alcohol < 10 Thyroglobulin Antibody Thyroid Peroxidase Ab Respiratory Panel [place] Adenovirus (Rapid PCR) B.pert (TEM-PCR) B.parapertussis DNA PCR C. pneumoniae DNA (PCR) Coronavirus OC43 (PCR) Coronavirus HKU1 (PCR) Coronavirus 229E (PCR) Coronavirus NL63 (PCR) Human Metapneumovir PCR Influenza A (RT-PCR) Influenza B (RT-PCR) M. pneumoniae (PCR) Parainfluenza 1 (PCR) Parainfluenza 2 (PCR) Parainfluenza 3 (PCR) Parainfluenza 4 (PCR) RSV (PCR) Entero/Rhino (PCR) SARS-CoV-2 RNA (RT-PCR) 08/16/23 08/16/23 08/16/23 08:25 08:25 08:25 WBC RBC Hgb Hct MCV MCH MCHC RDW Plt Count MPV Immature Gran % (Auto) Neut % (Auto) Lymph % (Auto) [place] % (Auto) Eos % (Auto) Baso % (Auto) Lymph # (Auto) [place] # (Auto) Eos # (Auto) Baso # (Auto) Abs Immat Gran (auto) Absolute Neuts (auto) Absolute Nucleated RBC Nucleated RBC % (auto) Smear Tech's Comments Hold Purple Top PT INR APTT Hold Blue Top O2 Saturation ABG pH at Pt Temp ABG pCO2 at Pt Temp ABG pO2 at Pt Temp ABG HCO3 ABG Base Excess (Actual) VBG pH VBG pCO2 VBG pO2 VBG HCO3 VBG O2 Saturation VBG Base Excess Sodium Potassium Chloride Carbon Dioxide Anion Gap BUN Creatinine Estim Creat Clear Calc Estimated GFR POC Glucose Random Glucose Lactic Acid Lactic Acid F/U @ 2Hr Lactic Acid F/U @ 4Hr Calcium Phosphorus Magnesium Total Bilirubin Direct Bilirubin AST ALT Alkaline Phosphatase Total Creatine Kinase Troponin I High Sens Total Protein Albumin Lipase TSH Free T4 Urine Color Dark Yellow Urine Appearance Cloudy Urine pH 5.5 Ur Specific [place] 1.015 Urine Protein 100 (2+) H Urine Glucose (UA) 100 H Urine Ketones Trace Urine Blood Large (3+) H Urine Nitrite Negative Ur Leukocyte Esterase Trace H Urine RBC >20 H Urine WBC 0-5 Ur Squamous Epith Cells 0-2 Urine Bacteria None Seen Hyaline Casts 0-2 Urine Test CSF Tube Number Cancelled 1 4 CSF Volume CSF Appearance CSF Color CSF WBC CSF RBC CSF Lymphocytes CSF Monocytes % CSF Appearance (b) CSF Glucose CSF Total Protein Vancomycin Trough Random Vancomycin Urine Opiates Screen Urine Fentanyl Screen Ur Barbiturates Screen Ur Phencyclidine Scrn Ur Amphetamines Screen U Benzodiazepines Scrn Urine Cocaine Screen U Marijuana (THC) Screen Ethyl Alcohol Thyroglobulin Antibody Thyroid Peroxidase Ab Respiratory Panel [place] Adenovirus (Rapid PCR) B.pert (TEM-PCR) B.parapertussis DNA PCR C. pneumoniae DNA (PCR) Coronavirus OC43 (PCR) Coronavirus HKU1 (PCR) Coronavirus 229E (PCR) Coronavirus NL63 (PCR) Human Metapneumovir PCR Influenza A (RT-PCR) Influenza B (RT-PCR) M. pneumoniae (PCR) Parainfluenza 1 (PCR) Parainfluenza 2 (PCR) Parainfluenza 3 (PCR) Parainfluenza 4 (PCR) RSV (PCR) Entero/Rhino (PCR) SARS-CoV-2 RNA (RT-PCR) 08/16/23 08/16/23 08/16/23 08:25 08:25 08:25 WBC RBC Hgb Hct MCV MCH MCHC RDW Plt Count MPV Immature Gran % (Auto) Neut % (Auto) Lymph % (Auto) [place] % (Auto) Eos % (Auto) Baso % (Auto) Lymph # (Auto) [place] # (Auto) Eos # (Auto) Baso # (Auto) Abs Immat Gran (auto) Absolute Neuts (auto) Absolute Nucleated RBC Nucleated RBC % (auto) Smear Tech's Comments Hold Purple Top PT INR APTT Hold Blue Top O2 Saturation ABG pH at Pt Temp ABG pCO2 at Pt Temp ABG pO2 at Pt Temp ABG HCO3 ABG Base Excess (Actual) VBG pH VBG pCO2 VBG pO2 VBG HCO3 VBG O2 Saturation VBG Base Excess Sodium Potassium Chloride Carbon Dioxide Anion Gap BUN Creatinine Estim Creat Clear Calc Estimated GFR POC Glucose Random Glucose Lactic Acid Lactic Acid F/U @ 2Hr Lactic Acid F/U @ 4Hr Calcium Phosphorus Magnesium Total Bilirubin Direct Bilirubin AST ALT Alkaline Phosphatase Total Creatine Kinase Troponin I High Sens Total Protein Albumin Lipase TSH Free T4 Urine Color Urine Appearance Urine pH Ur Specific [place] Urine Protein Urine Glucose (UA) Urine Ketones Urine Blood Urine Nitrite Ur Leukocyte Esterase Urine RBC Urine WBC Ur Squamous Epith Cells Urine Bacteria Hyaline Casts Urine Test CSF Tube Number 2 CSF Volume 1.0 1.0 CSF Appearance CLEAR CLEAR CSF Color COLORLESS CSF WBC CSF RBC CSF Lymphocytes CSF Monocytes % CSF Appearance (b) CSF Glucose CSF Total Protein Vancomycin Trough Random Vancomycin Urine Opiates Screen Urine Fentanyl Screen Ur Barbiturates Screen Ur Phencyclidine Scrn Ur Amphetamines Screen U Benzodiazepines Scrn Urine Cocaine Screen U Marijuana (THC) Screen Ethyl Alcohol Thyroglobulin Antibody Thyroid Peroxidase Ab Respiratory Panel [place] Adenovirus (Rapid PCR) B.pert (TEM-PCR) B.parapertussis DNA PCR C. pneumoniae DNA (PCR) Coronavirus OC43 (PCR) Coronavirus HKU1 (PCR) Coronavirus 229E (PCR) Coronavirus NL63 (PCR) Human Metapneumovir PCR Influenza A (RT-PCR) Influenza B (RT-PCR) M. pneumoniae (PCR) Parainfluenza 1 (PCR) Parainfluenza 2 (PCR) Parainfluenza 3 (PCR) Parainfluenza 4 (PCR) RSV (PCR) Entero/Rhino (PCR) SARS-CoV-2 RNA (RT-PCR) 08/16/23 08/16/23 08/16/23 08:25 08:25 08:25 WBC RBC Hgb Hct MCV MCH MCHC RDW Plt Count MPV Immature Gran % (Auto) Neut % (Auto) Lymph % (Auto) [place] % (Auto) Eos % (Auto) Baso % (Auto) Lymph # (Auto) [place] # (Auto) Eos # (Auto) Baso # (Auto) Abs Immat Gran (auto) Absolute Neuts (auto) Absolute Nucleated RBC Nucleated RBC % (auto) Smear Tech's Comments Hold Purple Top PT INR APTT Hold Blue Top O2 Saturation ABG pH at Pt Temp ABG pCO2 at Pt Temp ABG pO2 at Pt Temp ABG HCO3 ABG Base Excess (Actual) VBG pH VBG pCO2 VBG pO2 VBG HCO3 VBG O2 Saturation VBG Base Excess Sodium Potassium Chloride Carbon Dioxide Anion Gap BUN Creatinine Estim Creat Clear Calc Estimated GFR POC Glucose Random Glucose Lactic Acid Lactic Acid F/U @ 2Hr Lactic Acid F/U @ 4Hr Calcium Phosphorus Magnesium Total Bilirubin Direct Bilirubin AST ALT Alkaline Phosphatase Total Creatine Kinase Troponin I High Sens Total Protein Albumin Lipase TSH Free T4 Urine Color Urine Appearance Urine pH Ur Specific [place] Urine Protein Urine Glucose (UA) Urine Ketones Urine Blood Urine Nitrite Ur Leukocyte Esterase Urine RBC Urine WBC Ur Squamous Epith Cells Urine Bacteria Hyaline Casts Urine Test CSF Tube Number CSF Volume CSF Appearance CSF Color COLORLESS CSF WBC 2 3 CSF RBC 22 14 CSF Lymphocytes 100 CSF Monocytes % CSF Appearance (b) CSF Glucose CSF Total Protein Vancomycin Trough Random Vancomycin Urine Opiates Screen Urine Fentanyl Screen Ur Barbiturates Screen Ur Phencyclidine Scrn Ur Amphetamines Screen U Benzodiazepines Scrn Urine Cocaine Screen U Marijuana (THC) Screen Ethyl Alcohol Thyroglobulin Antibody Thyroid Peroxidase Ab Respiratory Panel [place] Adenovirus (Rapid PCR) B.pert (TEM-PCR) B.parapertussis DNA PCR C. pneumoniae DNA (PCR) Coronavirus OC43 (PCR) Coronavirus HKU1 (PCR) Coronavirus 229E (PCR) Coronavirus NL63 (PCR) Human Metapneumovir PCR Influenza A (RT-PCR) Influenza B (RT-PCR) M. pneumoniae (PCR) Parainfluenza 1 (PCR) Parainfluenza 2 (PCR) Parainfluenza 3 (PCR) Parainfluenza 4 (PCR) RSV (PCR) Entero/Rhino (PCR) SARS-CoV-2 RNA (RT-PCR) 08/16/23 08/16/23 08/16/23 08:25 08:25 08:25 WBC RBC Hgb Hct MCV MCH MCHC RDW Plt Count MPV Immature Gran % (Auto) Neut % (Auto) Lymph % (Auto) [place] % (Auto) Eos % (Auto) Baso % (Auto) Lymph # (Auto) [place] # (Auto) Eos # (Auto) Baso # (Auto) Abs Immat Gran (auto) Absolute Neuts (auto) Absolute Nucleated RBC Nucleated RBC % (auto) Smear Tech's Comments Hold Purple Top PT INR APTT Hold Blue Top O2 Saturation ABG pH at Pt Temp ABG pCO2 at Pt Temp ABG pO2 at Pt Temp ABG HCO3 ABG Base Excess (Actual) VBG pH VBG pCO2 VBG pO2 VBG HCO3 VBG O2 Saturation VBG Base Excess Sodium Potassium Chloride Carbon Dioxide Anion Gap BUN Creatinine Estim Creat Clear Calc Estimated GFR POC Glucose Random Glucose Lactic Acid Lactic Acid F/U @ 2Hr Lactic Acid F/U @ 4Hr Calcium Phosphorus Magnesium Total Bilirubin Direct Bilirubin AST ALT Alkaline Phosphatase Total Creatine Kinase Troponin I High Sens Total Protein Albumin Lipase TSH Free T4 Urine Color Urine Appearance Urine pH Ur Specific [place] Urine Protein Urine Glucose (UA) Urine Ketones Urine Blood Urine Nitrite Ur Leukocyte Esterase Urine RBC Urine WBC Ur Squamous Epith Cells Urine Bacteria Hyaline Casts Urine Test CSF Tube Number CSF Volume CSF Appearance CSF Color CSF WBC CSF RBC CSF Lymphocytes 83 CSF Monocytes % 17 CSF Appearance (b) Cancelled Clear, Colorless CSF Glucose Cancelled 96 CSF Total Protein 28.6 Vancomycin Trough Random Vancomycin Urine Opiates Screen POSITIVE H Urine Fentanyl Screen POSITIVE H Ur Barbiturates Screen Not Detected Ur Phencyclidine Scrn Not Detected Ur Amphetamines Screen Not Detected U Benzodiazepines Scrn POSITIVE H Urine Cocaine Screen POSITIVE H U Marijuana (THC) Screen POSITIVE H Ethyl Alcohol Thyroglobulin Antibody Thyroid Peroxidase Ab Respiratory Panel [place] Adenovirus (Rapid PCR) B.pert (TEM-PCR) B.parapertussis DNA PCR C. pneumoniae DNA (PCR) Coronavirus OC43 (PCR) Coronavirus HKU1 (PCR) Coronavirus 229E (PCR) Coronavirus NL63 (PCR) Human Metapneumovir PCR Influenza A (RT-PCR) Influenza B (RT-PCR) M. pneumoniae (PCR) Parainfluenza 1 (PCR) Parainfluenza 2 (PCR) Parainfluenza 3 (PCR) Parainfluenza 4 (PCR) RSV (PCR) Entero/Rhino (PCR) SARS-CoV-2 RNA (RT-PCR) 08/16/23 08/16/23 08/16/23 09:45 09:46 09:50 WBC RBC Hgb Hct MCV MCH MCHC RDW Plt Count MPV Immature Gran % (Auto) Neut % (Auto) Lymph % (Auto) [place] % (Auto) Eos % (Auto) Baso % (Auto) Lymph # (Auto) [place] # (Auto) Eos # (Auto) Baso # (Auto) Abs Immat Gran (auto) Absolute Neuts (auto) Absolute Nucleated RBC Nucleated RBC % (auto) Smear Tech's Comments Hold Purple Top PT INR APTT Hold Blue Top O2 Saturation ABG pH at Pt Temp ABG pCO2 at Pt Temp ABG pO2 at Pt Temp ABG HCO3 ABG Base Excess (Actual) VBG pH VBG pCO2 VBG pO2 VBG HCO3 VBG O2 Saturation VBG Base Excess Sodium Potassium Chloride Carbon Dioxide Anion Gap BUN Creatinine Estim Creat Clear Calc Estimated GFR POC Glucose Random Glucose Lactic Acid Lactic Acid F/U @ 2Hr 2.3 H* Lactic Acid F/U @ 4Hr Calcium Phosphorus Magnesium Total Bilirubin Direct Bilirubin AST ALT Alkaline Phosphatase Total Creatine Kinase Troponin I High Sens Total Protein Albumin Lipase TSH 0.70 Free T4 1.10 Urine Color Urine Appearance Urine pH Ur Specific [place] Urine Protein Urine Glucose (UA) Urine Ketones Urine Blood Urine Nitrite Ur Leukocyte Esterase Urine RBC Urine WBC Ur Squamous Epith Cells Urine Bacteria Hyaline Casts Urine Test CSF Tube Number CSF Volume CSF Appearance CSF Color CSF WBC CSF RBC CSF Lymphocytes CSF Monocytes % CSF Appearance (b) CSF Glucose CSF Total Protein Vancomycin Trough Random Vancomycin Urine Opiates Screen Urine Fentanyl Screen Ur Barbiturates Screen Ur Phencyclidine Scrn Ur Amphetamines Screen U Benzodiazepines Scrn Urine Cocaine Screen U Marijuana (THC) Screen Ethyl Alcohol Thyroglobulin Antibody 160 H Thyroid Peroxidase Ab 26 H Respiratory Panel [place] See Note Adenovirus (Rapid PCR) Not Detected B.pert (TEM-PCR) Not Detected B.parapertussis DNA PCR Not Detected C. pneumoniae DNA (PCR) Not Detected Coronavirus OC43 (PCR) Not Detected Coronavirus HKU1 (PCR) Not Detected Coronavirus 229E (PCR) Not Detected Coronavirus NL63 (PCR) Not Detected Human Metapneumovir PCR Not Detected Influenza A (RT-PCR) Not Detected Influenza B (RT-PCR) Not Detected M. pneumoniae (PCR) Not Detected Parainfluenza 1 (PCR) Not Detected Parainfluenza 2 (PCR) Not Detected Parainfluenza 3 (PCR) Not Detected Parainfluenza 4 (PCR) Not Detected RSV (PCR) Not Detected Entero/Rhino (PCR) Not Detected SARS-CoV-2 RNA (RT-PCR) Not Detected 08/16/23 08/17/23 08/17/23 12:59 04:43 04:47 WBC 15.6 H RBC 4.29 Hgb 13.7 Hct 41.3 MCV 96.3 MCH 31.9 MCHC 33.2 RDW 13.1 Plt Count 266 D MPV 11.5 Immature Gran % (Auto) 0.3 Neut % (Auto) 73.5 H Lymph % (Auto) 15.9 L [place] % (Auto) 10.1 Eos % (Auto) 0.0 Baso % (Auto) 0.2 Lymph # (Auto) 2.5 [place] # (Auto) 1.6 H Eos # (Auto) 0.0 Baso # (Auto) 0.0 Abs Immat Gran (auto) 0.04 H Absolute Neuts (auto) 11.5 H Absolute Nucleated RBC 0.000 Nucleated RBC % (auto) 0.0 Smear Tech's Comments Hold Purple Top PT INR APTT Hold Blue Top O2 Saturation ABG pH at Pt Temp ABG pCO2 at Pt Temp ABG pO2 at Pt Temp ABG HCO3 ABG Base Excess (Actual) VBG pH 7.46 H VBG pCO2 24 VBG pO2 125 VBG HCO3 17 L VBG O2 Saturation 99.0 VBG Base Excess -4.6 Sodium 140 Potassium 4.1 D Chloride 113 H Carbon Dioxide 15 L Anion Gap 16 BUN 16 Creatinine 1.06 Estim Creat Clear Calc 76.1 Estimated GFR 59 POC Glucose Random Glucose 158 H Lactic Acid Lactic Acid F/U @ 2Hr Lactic Acid F/U @ 4Hr 3.1 H* Calcium 8.2 L D Phosphorus 3.1 Magnesium 2.4 Total Bilirubin 0.4 Direct Bilirubin AST 397 H ALT 135 H Alkaline Phosphatase 53 Total Creatine Kinase Troponin I High Sens Total Protein 6.1 L Albumin 3.2 L Lipase TSH Free T4 Urine Color Urine Appearance Urine pH Ur Specific [place] Urine Protein Urine Glucose (UA) Urine Ketones Urine Blood Urine Nitrite Ur Leukocyte Esterase Urine RBC Urine WBC Ur Squamous Epith Cells Urine Bacteria Hyaline Casts Urine Test CSF Tube Number CSF Volume CSF Appearance CSF Color CSF WBC CSF RBC CSF Lymphocytes CSF Monocytes % CSF Appearance (b) CSF Glucose CSF Total Protein Vancomycin Trough Random Vancomycin Urine Opiates Screen Urine Fentanyl Screen Ur Barbiturates Screen Ur Phencyclidine Scrn Ur Amphetamines Screen U Benzodiazepines Scrn Urine Cocaine Screen U Marijuana (THC) Screen Ethyl Alcohol Thyroglobulin Antibody Thyroid Peroxidase Ab Respiratory Panel [place] Adenovirus (Rapid PCR) B.pert (TEM-PCR) B.parapertussis DNA PCR C. pneumoniae DNA (PCR) Coronavirus OC43 (PCR) Coronavirus HKU1 (PCR) Coronavirus 229E (PCR) Coronavirus NL63 (PCR) Human Metapneumovir PCR Influenza A (RT-PCR) Influenza B (RT-PCR) M. pneumoniae (PCR) Parainfluenza 1 (PCR) Parainfluenza 2 (PCR) Parainfluenza 3 (PCR) Parainfluenza 4 (PCR) RSV (PCR) Entero/Rhino (PCR) SARS-CoV-2 RNA (RT-PCR) 08/17/23 08/18/23 08/18/23 Unknown 04:28 04:34 WBC 13.7 H RBC 3.88 L Hgb 12.4 Hct 37.9 MCV 97.7 MCH 32.0 MCHC 32.7 RDW 13.2 Plt Count 250 MPV 11.1 Immature Gran % (Auto) 0.4 Neut % (Auto) 58.7 Lymph % (Auto) 32.7 [place] % (Auto) 7.9 Eos % (Auto) 0.1 Baso % (Auto) 0.2 Lymph # (Auto) 4.5 [place] # (Auto) 1.1 Eos # (Auto) 0.0 Baso # (Auto) 0.0 Abs Immat Gran (auto) 0.05 H Absolute Neuts (auto) 8.0 Absolute Nucleated RBC 0.000 Nucleated RBC % (auto) 0.0 Smear Tech's Comments VERIFIED Hold Purple Top PT INR APTT Hold Blue Top O2 Saturation ABG pH at Pt Temp ABG pCO2 at Pt Temp ABG pO2 at Pt Temp ABG HCO3 ABG Base Excess (Actual) VBG pH 7.50 H VBG pCO2 32 VBG pO2 47 VBG HCO3 25 VBG O2 Saturation 80.0 VBG Base Excess 2.8 Sodium 143 Potassium 4.0 Chloride 111 H Carbon Dioxide 20 L Anion Gap 16 BUN 12 Creatinine 0.79 Estim Creat Clear Calc 108.0 Estimated GFR > 60 POC Glucose Random Glucose 99 Lactic Acid Lactic Acid F/U @ 2Hr Lactic Acid F/U @ 4Hr Calcium 8.5 Phosphorus 2.8 Magnesium 2.5 Total Bilirubin 0.4 Direct Bilirubin AST 296 H ALT 110 H Alkaline Phosphatase 62 Total Creatine Kinase 74606 H Troponin I High Sens Total Protein 5.5 L Albumin 3.0 L Lipase TSH Free T4 Urine Color Urine Appearance Urine pH Ur Specific [place] Urine Protein Urine Glucose (UA) Urine Ketones Urine Blood Urine Nitrite Ur Leukocyte Esterase Urine RBC Urine WBC Ur Squamous Epith Cells Urine Bacteria Hyaline Casts Urine Test NEGATIVE CSF Tube Number CSF Volume CSF Appearance CSF Color CSF WBC CSF RBC CSF Lymphocytes CSF Monocytes % CSF Appearance (b) CSF Glucose CSF Total Protein Vancomycin Trough 10.1 Random Vancomycin Urine Opiates Screen Urine Fentanyl Screen Ur Barbiturates Screen Ur Phencyclidine Scrn Ur Amphetamines Screen U Benzodiazepines Scrn Urine Cocaine Screen U Marijuana (THC) Screen Ethyl Alcohol Thyroglobulin Antibody Thyroid Peroxidase Ab Respiratory Panel [place] Adenovirus (Rapid PCR) B.pert (TEM-PCR) B.parapertussis DNA PCR C. pneumoniae DNA (PCR) Coronavirus OC43 (PCR) Coronavirus HKU1 (PCR) Coronavirus 229E (PCR) Coronavirus NL63 (PCR) Human Metapneumovir PCR Influenza A (RT-PCR) Influenza B (RT-PCR) M. pneumoniae (PCR) Parainfluenza 1 (PCR) Parainfluenza 2 (PCR) Parainfluenza 3 (PCR) Parainfluenza 4 (PCR) RSV (PCR) Entero/Rhino (PCR) SARS-CoV-2 RNA (RT-PCR) 08/19/23 08/19/23 08/19/23 05:05 05:16 17:53 WBC 13.8 H RBC 3.33 L Hgb 10.7 L Hct 32.6 L MCV 97.9 MCH 32.1 MCHC 32.8 RDW 13.0 Plt Count 225 MPV 11.3 Immature Gran % (Auto) 0.7 H Neut % (Auto) 50.5 Lymph % (Auto) 42.0 H [place] % (Auto) 6.4 Eos % (Auto) 0.1 Baso % (Auto) 0.3 Lymph # (Auto) 5.8 H [place] # (Auto) 0.9 Eos # (Auto) 0.0 Baso # (Auto) 0.0 Abs Immat Gran (auto) 0.09 H Absolute Neuts (auto) 7.0 Absolute Nucleated RBC 0.000 Nucleated RBC % (auto) 0.0 Smear Tech's Comments VERIFIED Hold Purple Top PT INR APTT Hold Blue Top O2 Saturation ABG pH at Pt Temp ABG pCO2 at Pt Temp ABG pO2 at Pt Temp ABG HCO3 ABG Base Excess (Actual) VBG pH 7.58 H VBG pCO2 30 VBG pO2 47 VBG HCO3 28 H VBG O2 Saturation 81.0 VBG Base Excess 7.1 Sodium 143 Potassium 3.8 Chloride 110 H Carbon Dioxide 24 Anion Gap 13 BUN 12 Creatinine 0.71 Estim Creat Clear Calc 121.6 Estimated GFR > 60 POC Glucose Random Glucose 87 Lactic Acid Lactic Acid F/U @ 2Hr Lactic Acid F/U @ 4Hr Calcium 8.3 L Phosphorus 1.9 L Magnesium 2.3 Total Bilirubin 0.6 Direct Bilirubin AST 247 H ALT 96 H Alkaline Phosphatase 46 Total Creatine Kinase 47761 H Troponin I High Sens Total Protein 5.3 L Albumin 2.8 L Lipase TSH Free T4 Urine Color Urine Appearance Urine pH Ur Specific [place] [place] Urine Protein Urine Glucose (UA) Urine Ketones Urine Blood Urine Nitrite Ur Leukocyte Esterase Urine RBC Urine WBC Ur Squamous Epith Cells Urine Bacteria Hyaline Casts Urine Test CSF Tube Number CSF Volume CSF Appearance CSF Color CSF WBC CSF RBC CSF Lymphocytes CSF Monocytes % CSF Appearance (b) CSF Glucose CSF Total Protein Vancomycin Trough Random Vancomycin 11.6 L Urine Opiates Screen Urine Fentanyl Screen Ur Barbiturates Screen Ur Phencyclidine Scrn Ur Amphetamines Screen U Benzodiazepines Scrn Urine Cocaine Screen U Marijuana (THC) Screen Ethyl Alcohol Thyroglobulin Antibody Thyroid Peroxidase Ab Respiratory Panel [place] Adenovirus (Rapid PCR) B.pert (TEM-PCR) B.parapertussis DNA PCR C. pneumoniae DNA (PCR) Coronavirus OC43 (PCR) Coronavirus HKU1 (PCR) Coronavirus 229E (PCR) Coronavirus NL63 (PCR) Human Metapneumovir PCR Influenza A (RT-PCR) Influenza B (RT-PCR) M. pneumoniae (PCR) Parainfluenza 1 (PCR) Parainfluenza 2 (PCR) Parainfluenza 3 (PCR) Parainfluenza 4 (PCR) RSV (PCR) Entero/Rhino (PCR) SARS-CoV-2 RNA (RT-PCR) 08/19/23 08/20/23 08/20/23 20:05 05:15 05:18 WBC 10.9 H RBC 3.02 L Hgb 9.6 L Hct 29.1 L MCV 96.4 MCH 31.8 MCHC 33.0 RDW 12.7 Plt Count 195 MPV 11.5 Immature Gran % (Auto) 0.5 H Neut % (Auto) 40.4 L Lymph % (Auto) 50.6 H [place] % (Auto) 7.6 Eos % (Auto) 0.6 Baso % (Auto) 0.3 Lymph # (Auto) 5.5 H [place] # (Auto) 0.8 Eos # (Auto) 0.1 Baso # (Auto) 0.0 Abs Immat Gran (auto) 0.05 H Absolute Neuts (auto) 4.4 Absolute Nucleated RBC 0.000 Nucleated RBC % (auto) 0.0 Smear Tech's Comments VERIFIED Hold Purple Top PT INR APTT Hold Blue Top O2 Saturation ABG pH at Pt Temp ABG pCO2 at Pt Temp ABG pO2 at Pt Temp ABG HCO3 ABG Base Excess (Actual) VBG pH 7.50 H VBG pCO2 36 VBG pO2 54 VBG HCO3 28 H VBG O2 Saturation 84.0 VBG Base Excess 5.4 Sodium 143 144 Potassium 3.3 3.3 Chloride 109 H 110 H Carbon Dioxide 23 23 Anion Gap 14 14 BUN 12 15 Creatinine 0.70 0.68 Estim Creat Clear Calc 123.4 126.1 Estimated GFR > 60 > 60 POC Glucose Random Glucose 102 81 Lactic Acid Lactic Acid F/U @ 2Hr Lactic Acid F/U @ 4Hr Calcium 8.4 8.4 Phosphorus 2.9 2.6 L Magnesium 2.3 2.4 Total Bilirubin 1.0 Direct Bilirubin AST 209 H ALT 91 H Alkaline Phosphatase 37 L Total Creatine Kinase 8395 H Troponin I High Sens Total Protein 5.2 L Albumin 3.0 L 3.2 L Lipase TSH Free T4 Urine Color Urine Appearance Urine pH Ur Specific [place] Urine Protein Urine Glucose (UA) Urine Ketones Urine Blood Urine Nitrite Ur Leukocyte Esterase Urine RBC Urine WBC Ur Squamous Epith Cells Urine Bacteria Hyaline Casts Urine Test CSF Tube Number CSF Volume CSF Appearance CSF Color CSF WBC CSF RBC CSF Lymphocytes CSF Monocytes % CSF Appearance (b) CSF Glucose CSF Total Protein Vancomycin Trough Random Vancomycin Urine Opiates Screen Urine Fentanyl Screen Ur Barbiturates Screen Ur Phencyclidine Scrn Ur Amphetamines Screen U Benzodiazepines Scrn Urine Cocaine Screen U Marijuana (THC) Screen Ethyl Alcohol Thyroglobulin Antibody Thyroid Peroxidase Ab Respiratory Panel [place] Adenovirus (Rapid PCR) B.pert (TEM-PCR) B.parapertussis DNA PCR C. pneumoniae DNA (PCR) Coronavirus OC43 (PCR) Coronavirus HKU1 (PCR) Coronavirus 229E (PCR) Coronavirus NL63 (PCR) Human Metapneumovir PCR Influenza A (RT-PCR) Influenza B (RT-PCR) M. pneumoniae (PCR) Parainfluenza 1 (PCR) Parainfluenza 2 (PCR) Parainfluenza 3 (PCR) Parainfluenza 4 (PCR) RSV (PCR) Entero/Rhino (PCR) SARS-CoV-2 RNA (RT-PCR) 08/20/23 08/20/23 08/21/23 07:51 18:01 06:43 WBC 13.1 H RBC 3.18 L Hgb 10.2 L Hct 30.3 L MCV 95.3 MCH 32.1 MCHC 33.7 RDW 12.6 Plt Count 243 MPV 11.6 Immature Gran % (Auto) Neut % (Auto) Lymph % (Auto) [place] % (Auto) Eos % (Auto) Baso % (Auto) Lymph # (Auto) [place] # (Auto) Eos # (Auto) Baso # (Auto) Abs Immat Gran (auto) Absolute Neuts (auto) Absolute Nucleated RBC 0.000 Nucleated RBC % (auto) 0.0 Smear Tech's Comments Hold Purple Top PT 11.4 INR 0.9 APTT 25.7 L Hold Blue Top O2 Saturation ABG pH at Pt Temp ABG pCO2 at Pt Temp ABG pO2 at Pt Temp ABG HCO3 ABG Base Excess (Actual) VBG pH VBG pCO2 VBG pO2 VBG HCO3 VBG O2 Saturation VBG Base Excess Sodium 141 Potassium 3.0 L Chloride 108 Carbon Dioxide 22 Anion Gap 14 BUN 16 Creatinine 0.64 Estim Creat Clear Calc 133.9 Estimated GFR > 60 POC Glucose Random Glucose 94 Lactic Acid Lactic Acid F/U @ 2Hr Lactic Acid F/U @ 4Hr Calcium 8.5 Phosphorus Magnesium Total Bilirubin 0.8 Direct Bilirubin 0.3 AST 137 H ALT 84 H Alkaline Phosphatase 41 Total Creatine Kinase 4585 H Troponin I High Sens Total Protein 5.0 L Albumin 2.9 L Lipase TSH Free T4 Urine Color Urine Appearance Urine pH Ur Specific [place] Urine Protein Urine Glucose (UA) Urine Ketones Urine Blood Urine Nitrite Ur Leukocyte Esterase Urine RBC Urine WBC Ur Squamous Epith Cells Urine Bacteria Hyaline Casts Urine Test CSF Tube Number CSF Volume CSF Appearance CSF Color CSF WBC CSF RBC CSF Lymphocytes CSF Monocytes % CSF Appearance (b) CSF Glucose CSF Total Protein Vancomycin Trough Random Vancomycin 18.1 Urine Opiates Screen Urine Fentanyl Screen Ur Barbiturates Screen Ur Phencyclidine Scrn Ur Amphetamines Screen U Benzodiazepines Scrn Urine Cocaine Screen U Marijuana (THC) Screen Ethyl Alcohol Thyroglobulin Antibody Thyroid Peroxidase Ab Respiratory Panel [place] Adenovirus (Rapid PCR) B.pert (TEM-PCR) B.parapertussis DNA PCR C. pneumoniae DNA (PCR) Coronavirus OC43 (PCR) Coronavirus HKU1 (PCR) Coronavirus 229E (PCR) Coronavirus NL63 (PCR) Human Metapneumovir PCR Influenza A (RT-PCR) Influenza B (RT-PCR) M. pneumoniae (PCR) Parainfluenza 1 (PCR) Parainfluenza 2 (PCR) Parainfluenza 3 (PCR) Parainfluenza 4 (PCR) RSV (PCR) Entero/Rhino (PCR) SARS-CoV-2 RNA (RT-PCR) 08/21/23 08/22/23 08/22/23 10:35 07:08 10:04 WBC 13.0 H RBC 3.32 L Hgb 10.5 L Hct 30.9 L MCV 93.1 MCH 31.6 MCHC 34.0 RDW 12.6 Plt Count 269 MPV 11.2 Immature Gran % (Auto) Neut % (Auto) Lymph % (Auto) [place] % (Auto) Eos % (Auto) Baso % (Auto) Lymph # (Auto) [place] # (Auto) Eos # (Auto) Baso # (Auto) Abs Immat Gran (auto) Absolute Neuts (auto) Absolute Nucleated RBC 0.000 Nucleated RBC % (auto) 0.0 Smear Tech's Comments Hold Purple Top PT INR APTT Hold Blue Top O2 Saturation ABG pH at Pt Temp ABG pCO2 at Pt Temp ABG pO2 at Pt Temp ABG HCO3 ABG Base Excess (Actual) VBG pH VBG pCO2 VBG pO2 VBG HCO3 VBG O2 Saturation VBG Base Excess Sodium 142 Potassium 2.7 L Chloride 107 Carbon Dioxide 25 Anion Gap 13 BUN 11 Creatinine 0.54 Estim Creat Clear Calc 158.7 Estimated GFR > 60 POC Glucose Random Glucose 88 Lactic Acid Lactic Acid F/U @ 2Hr Lactic Acid F/U @ 4Hr Calcium 7.7 L D Phosphorus Magnesium Total Bilirubin Direct Bilirubin AST ALT Alkaline Phosphatase Total Creatine Kinase 2349 H Troponin I High Sens Total Protein Albumin Lipase TSH Free T4 Urine Color Urine Appearance Urine pH Ur Specific [place] Urine Protein Urine Glucose (UA) Urine Ketones Urine Blood Urine Nitrite Ur Leukocyte Esterase Urine RBC Urine WBC Ur Squamous Epith Cells Urine Bacteria Hyaline Casts Urine Test CSF Tube Number CSF Volume CSF Appearance CSF Color CSF WBC CSF RBC CSF Lymphocytes CSF Monocytes % CSF Appearance (b) CSF Glucose CSF Total Protein Vancomycin Trough 15.6 Random Vancomycin 14.3 L Urine Opiates Screen Urine Fentanyl Screen Ur Barbiturates Screen Ur Phencyclidine Scrn Ur Amphetamines Screen U Benzodiazepines Scrn Urine Cocaine Screen U Marijuana (THC) Screen Ethyl Alcohol Thyroglobulin Antibody Thyroid Peroxidase Ab Respiratory Panel [place] Adenovirus (Rapid PCR) B.pert (TEM-PCR) B.parapertussis DNA PCR C. pneumoniae DNA (PCR) Coronavirus OC43 (PCR) Coronavirus HKU1 (PCR) Coronavirus 229E (PCR) Coronavirus NL63 (PCR) Human Metapneumovir PCR Influenza A (RT-PCR) Influenza B (RT-PCR) M. pneumoniae (PCR) Parainfluenza 1 (PCR) Parainfluenza 2 (PCR) Parainfluenza 3 (PCR) Parainfluenza 4 (PCR) RSV (PCR) Entero/Rhino (PCR) SARS-CoV-2 RNA (RT-PCR) Narrative Narrative: EKG 08/16/2023 Sinus tachycardia Otherwise normal ECG When compared with ECG of 18-JUL-2012 04:30, T wave inversion less evident in Inferior leads Nonspecific T wave abnormality no longer evident in Lateral leads Heart rate has increased ECHO 08/17/2023 - The left ventricular systolic function is severely decreased. The calculated ejection fraction is 22% by biplane method. - There is severe global hypokinesis with regional variation. - No obvious valvular pathology seen on this study. Airway Mallampati Class: III Neck ROM: Limited Loose/Missing/Broken Teeth: Yes (poor and chipped ) Assessment and Plan Assessment Anesthesia Assessment: Anesthesia Plan Discussed and Chart Reviewed Final Anesthetic Review Family History of Problems with Anesthesia: No History of Problems with Anesthesia: No NPO: Yes ASA Class: IV and Emergency Final Preanesthetic Review: Meds/Allgs Chart Reviewed, Consent Obtained/Reviewed and Anes Risks/Benef Reviewed Patient Risk: High Procedure Risk: Intermediate Anesthetic Plan Anesthetic Plan: MAC: and Agree w/ Assess. and Plan Disposition: Standard PACU and Inp. Admit - I[facility]
--- NOTE | 2023-08-22 14:21 | HO.PM.IMPN ---
Subjective Subjective Date of Service: 08/22/23 Interval History: Seen and evaluated this morning Reporting increased pain in LUE no sensation on her finger tips Constipated plan for surgery on room air Review of Systems Review of Systems: Yes all other systems are reviewed and are negative Physical Exam Vital Signs: Vital Signs: Last Vital Signs Temp 97.9 F 08/22/23 13:11 Pulse 91 08/22/23 13:11 Resp 16 08/22/23 13:11 BP 132/94 H 08/22/23 13:11 Pulse Ox 95 08/22/23 13:11 O2 Del Method Room Air 08/22/23 13:11 O2 Flow Rate 1 08/20/23 15:13 FiO2 35 08/19/23 07:58 BMI result Body Mass Index 29.3 Const: Other: Constitutional : Awake, interactive, not in distress Neck : Normal inspection, Supple Cardiovascular : RRR, no JVP, no lower extremity edema Respiratory : good bilateral air entry, no crackles, wheezes or rhonchi Gastrointestinal: soft, lax, Normal bowel sounds, Non tender Skin : Warm, Dry, LUE surgical wounds covered with dressing, wound vac in place Neurological : Alert & oriented x3, LUE warm fingers but no sensation or motor function, fair sensation over LUE forearm-12 within normal Objective Data Active Medications Docusate Sodium (Docusate Sodium 100 Mg Capsule) 100 mg PO BID [facility] Last Admin: 08/22/23 09:01 Dose: 100 mg Documented By: EMANUEL Gabapentin (Gabapentin 100 Mg Capsule) 200 mg PO BID [facility] Last Admin: 08/22/23 10:56 Dose: 200 mg Documented By: EMANUEL Hydromorphone HCl (Hydromorphone Hcl 2 Mg/Ml Vial) 2 mg IVPUSH Q3H [facility]; Protocol Last Admin: 08/22/23 10:57 Dose: 2 mg Documented By: EMANUEL Hydromorphone HCl (Hydromorphone Hcl 2 Mg Tablet) 2 mg PO Q6H PRN PRN Reason: Pain, Severe (Pain Scale 7-10) Meropenem 1 gm/ Sodium (Chloride) 100 mls @ 200 mls/hr IV Q8H [facility] Last Infusion: 08/22/23 05:49 Dose: Infused Documented By: BERNARD Vancomycin HCl 750 mg/ Sodium (Chloride) 265 mls @ 265 mls/hr IV Q8H [facility] Last Admin: 08/22/23 13:33 Dose: 265 mls/hr Documented By: JONO Potassium Chloride (Potassium Chloride/H20) 10 meq in 100 mls @ 100 mls/hr IV ONCE ONE Stop: 08/22/23 15:11 Lactulose (Lactulose 20 Gm/30 Ml Solution) 20 gm PO TID [facility] Last Admin: 08/22/23 10:36 Dose: Not Given Documented By: EMANUEL Non-Admin Reason: Patient Refused Pantoprazole Sodium (Pantoprazole Sodium 40 Mg/10 Ml Vial) 40 mg IVPUSH BID@0630,1630 [facility] Last Admin: 08/22/23 05:18 Dose: 40 mg Documented By: BERNARD Pharmacy Consult (Consult Rx Vancomycin Dosing) 1 each MISCELLANE DAILY PRN PRN Reason: Consult order Potassium Chloride (Potassium Chloride Packet 20 Meq Packet) 40 meq PO Q2H [facility] Stop: 08/22/23 16:16 Sodium Chloride (0.9 % Sodium Chloride Flush 3 Ml Syringe) 3 ml IVFLUSH QSHIFT [facility] Last Admin: 08/22/23 09:03 Dose: 3 ml Documented By: EMANUEL Labs 08/22/23 07:08 08/22/23 07:08 Labs: Laboratory Results - last 24 hr 08/22/23 08/22/23 07:08 10:04 MCV 93.1 MCH 31.6 MCHC 34.0 RDW 12.6 Plt Count 269 MPV 11.2 Absolute Nucleated RBC 0.000 Nucleated RBC % (auto) 0.0 Anion Gap 13 Estim Creat Clear Calc 158.7 Estimated GFR > 60 Random Glucose 88 Calcium 7.7 L D Total Creatine Kinase 2349 H Vancomycin Trough 15.6 Assessment and Plan (1) Cardiomyopathy: Status: Acute (2) Encephalopathy: Status: Acute (3) Traumatic brachial plexopathy: Status: Acute (4) Compartment syndrome of forearm: Status: Acute (5) Secondary rhabdomyolysis: Status: Acute (6) Aspiration pneumonia: Status: Acute (7) Seizure cerebral: Status: Acute Plan 33 years old lady who presented with AMS from overdose developed Compartment, rhabdo, aspiration, CMP requring ICU admission and intubation with 4 surgeries to relieve the compartment. Compartment syndrome LUE forearm day by day progression, still having lot of pain ORthopedic team to do surgery today Narcotics for pain wound team following, wound vac in place acute Peripheral neuropathy 2/2 compartment pressure relieved by surgery neurology evaluation appreciated, [facility] follow up New onset acute Cardiomyopathy likely from hypoxia Echo on 08/17 showed 20% repeat Echo per ICU showed improvement Get cardiology evaluation rec starting carvedilol and consider KENNETH-I Aspiration pneumonia Continue IV Abx of Vanco and Meropenem cultures negative now follow clinical course Acute hypokalemia K of 2.7 give replacement and follow BMP Constipation Laxatives Drug abuse Addiction team following; started on Methadone New onset seizure Neurology eval one time incident, no need to treat and monitor for now DC Keppra and monitor DVT PPx SCDs The patient will need overnight hospital stay for treatment of compartment syndrome pending possible re-OP, cardiomyopathy and seizure eval by specialists pending safe discharge plan as well. Time Spent With Patient Time: Total time managing care of this patient today ____ minutes. Quality Stroke Does the patient have a stroke diagnosis?: No VTE Prior VTE?: No VTE Risk Level:: Medical - moderate - high VTE Device Contraindication: N/A - Device Ordered VTE Drug Contraindication: Treatment Not Indicated
--- NOTE | 2023-08-22 14:26 | MHC.CM.PN ---
CM MET WITH PT AND PARENTS AT BEDSIDE. PT ABLE TO COMPLETE A HCP. PT LIVES WITH HER PARENTS AND DOES NOT WANT TO GO TO REHAB. FIRST CHOICE FOR [facility] IS [facility]. PER [facility], PT IS NOT YET ESTABLISHED WITH DR. SHEPARD. HAS NOT HAD AN IN PERSON VISIT AND WILL NOT SIGN ORDERS. CM WILL CONTINUE TO FOLLOW FOR DC PLAN.
--- NOTE | 2023-08-22 14:41 | PC.NURSE ---
Patient in preop. Morning potassium 2.7. Anesthesia Dr. Dang made aware as well as Dr. Long. Call placed to hospitalist by him and PO/IV potassium ordered by hospitalist. IV medication brought to preop by pharmacy. [facility]rish and administered by Dr. Dang. May proceed with surgery.
--- NOTE | 2023-08-22 16:00 | PM.OP ---
Brief Operative Note Date of Service: 08/22/23 Pre-op diagnosis: Left forearm compartment syndrome Post-op diagnosis: same Procedure: Debridement and irrigation left forearm partial delayed primary closure and placement of vacuum assisted wound device Implants: none Surgeon: Devang Long MD Anesthesia: MAC Was an Human Resources Hr Representative used for this Procedure?: Yes Human Resources Hr Representative: Zackary Galvez Estimated blood loss (mL): 50 Pathology: none sent Condition: stable Disposition: PACU
[2023-08-23] VITALS (9 sets, daily range): BP systolic 104–126; BP diastolic 60–79; PULSE 100–106; RESP 18–20; TEMP 36.2–36.9; O2SAT 93–98
--- NOTE | 2023-08-23 07:56 | PM.PNORT ---
Subjective Subjective Date of Service: 08/23/23 Principal diagnosis: Extubated. Responsive. C/o left hand numbness. Interval history: POD1 s/p #3 debridement left forearm Patient is resting in bed comfortably No overnight events Pain is managed Continues to report left hand numbness Physical Exam Vital Signs: Vital Signs: Last Vital Signs Temp 98.4 F 08/23/23 07:37 Pulse 105 H 08/23/23 07:37 Resp 20 08/23/23 07:37 BP 118/74 08/23/23 07:37 Pulse Ox 93 08/23/23 07:37 O2 Del Method Room Air 08/23/23 07:37 O2 Flow Rate 2 08/22/23 16:29 FiO2 35 08/19/23 07:58 BMI result Body Mass Index 29.3 Extrem: Other: Wound vac holding suction Sensation intact over anterior and medial arm Markedly diminished sensation over lateral deltoid and entire forearm. Triceps and lattisimus intact but deltoid/biceps and all distal motor funtion not present Procedures Date of Service Date of Service: 08/23/23 Progress Note: A&P Assessment and plan (1) Compartment syndrome of forearm: Status: Acute Assessment and Plan: Wound vac holding and intact Sling Pain management as appropriate Continue to monitor Will bring patient back to the OR again today Remain NPO (2) Traumatic brachial plexopathy: Status: Acute Assessment and Plan: Likely traumatic brachial plexopathy with triceps intact Plan Will continue to observe Time Spent With Patient Time: Total time managing care of this patient today ____ minutes. Quality Stroke Does the patient have a stroke diagnosis?: No VTE Prior VTE?: No VTE Risk Level:: Medical - moderate - high VTE Device Contraindication: N/A - Device Ordered VTE Drug Contraindication: Treatment Not Indicated
--- NOTE | 2023-08-23 08:11 | HO.POSTANES ---
Post Anesthesia Evaluation Post Anesthesia Evaluation Date of Service: 08/22/23 Vital Signs: Vital Signs Temp Pulse Resp BP Pulse Ox O2 Del Method 08/23/23 07:37 98.4 F 105 H 20 118/74 93 Room Air 08/23/23 03:14 97.4 F 101 H 19 124/60 94 Room Air 08/22/23 23:47 97.6 F 83 19 117/69 93 Room Air Anesthesia: Monitored Mental Status: Awake Pain Control: Satisfactory Nausea/Vomiting: None Hydration: Adequate Anesthesia-Related Issues: No Anes. Related Issues
[2023-08-23 08:13] LABS: Anion Gap 13 (12-20); Blood Urea Nitrogen 7 mg/dL (9-16); Calcium 8.1 mg/dL (8.4-10.2); Carbon Dioxide 24 mmol/L (22-29); Chloride 104 mmol/L (96-108); Creatinine Clr Calc Pharmacy 150.4; Estimated Glomerular Filt Rate > 60; Glucose Random 95 mg/dL (60-115); Potassium 2.7 mmol/L (3.3-5.1); Sodium 138 mmol/L (135-145)
[2023-08-23 13:52] LABS: Anion Gap 10 (12-20); Blood Urea Nitrogen 7 mg/dL (9-16); Carbon Dioxide 27 mmol/L (22-29); Chloride 104 mmol/L (96-108); Creatinine Clr Calc Pharmacy 147.7; Estimated Glomerular Filt Rate > 60; Glucose Random 104 mg/dL (60-115); Potassium 3.3 mmol/L (3.3-5.1); Sodium 138 mmol/L (135-145)
--- NOTE | 2023-08-23 14:19 | MHC.CM.PN ---
EMR REVIEWED. PER MD ROUNDS PT NOT MEDICALLY CLEARED FOR DC AT THIS TIME. SURGERY TODAY. CM WILL CONTINUE TO FOLLOW.
--- NOTE | 2023-08-23 14:29 | MHC.RECOVRN ---
Met with pt in 459 to follow up and provide support. Pt laying in bed, awake, alert, easily engages in conversation. Pt reports using 2 bags heroin/fentanyl prior to hospitalization which pt believes caused overdose. Pt reports using one week prior as well. Before that, pt states it has been 10 years since last opioid use. Pt reports it has been difficult due to her boyfriend having heroin/fentanyl around her. Pt states I don't think we're together anymore. Pt reports hx methadone as well as Suboxone. Pt reports currently drinking alcohol, approx 10 nips daily x 1-2 years. Pt is not craving any substances currently. Discussed MOMACEY and RIKA, pt is not interested. Pt is also not interested in continued tx, including STR. Pt wishes to discharge home. Pt denies other questions or concerns at this time. Discussed with Nita Swan APRN.
--- NOTE | 2023-08-23 14:31 | P.PNIM_ITS ---
Subjective Subjective Date of Service: 08/23/23 Interval History: Seen and evaluated this morning Reporting pain in LUE surgery postponded today still no sensation on her finger tips No seizure activity Constipated on room air Review of Systems Review of Systems: Yes all other systems are reviewed and are negative Physical Exam 2 Vital Signs: Vital Signs: Last Vital Signs Temp 98.3 F 08/23/23 11:33 Pulse 103 H 08/23/23 11:33 Resp 20 08/23/23 11:33 BP 119/79 08/23/23 11:33 Pulse Ox 97 08/23/23 11:33 O2 Del Method Room Air 08/23/23 11:33 O2 Flow Rate 2 08/22/23 16:29 FiO2 35 08/19/23 07:58 BMI result Body Mass Index 29.3 Const: Other: Constitutional : Awake, interactive, not in distress Neck : Normal inspection, Supple Cardiovascular : RRR, no JVP, no lower extremity edema Respiratory : good bilateral air entry, no crackles, wheezes or rhonchi Gastrointestinal: soft, lax, Normal bowel sounds, Non tender Skin : Warm, Dry, LUE surgical wounds covered with dressing, wound vac in place Neurological : Alert & oriented x3, LUE warm fingers but no sensation or motor function, fair sensation over LUE forearm-12 within normal Objective Data Active Medications Carvedilol (Carvedilol 3.125 Mg Tablet) 3.125 mg PO BID [facility]; Protocol Last Admin: 08/23/23 09:13 Dose: 3.125 mg Documented By: SU Docusate Sodium (Docusate Sodium 100 Mg Capsule) 100 mg PO BID [facility] Last Admin: 08/23/23 09:12 Dose: 100 mg Documented By: SU Gabapentin (Gabapentin 100 Mg Capsule) 200 mg PO BID [facility] Last Admin: 08/23/23 09:12 Dose: 200 mg Documented By: SU Hydromorphone HCl (Hydromorphone Hcl 2 Mg/Ml Vial) 2 mg IVPUSH Q3H [facility]; Protocol Last Admin: 08/23/23 12:42 Dose: 2 mg Documented By: SU Hydromorphone HCl (Hydromorphone Hcl 2 Mg Tablet) 2 mg PO Q6H PRN PRN Reason: Pain, Severe (Pain Scale 7-10) Last Admin: 08/23/23 09:12 Dose: 2 mg Documented By: SU Meropenem 1 gm/ Sodium (Chloride) 100 mls @ 200 mls/hr IV Q8H [facility] Last Admin: 08/23/23 14:01 Dose: 200 mls/hr Documented By: SU Vancomycin HCl 750 mg/ Sodium (Chloride) 265 mls @ 265 mls/hr IV Q8H [facility] Last Infusion: 08/23/23 12:45 Dose: Infused Documented By: SU Lactulose (Lactulose 20 Gm/30 Ml Solution) 20 gm PO TID [facility] Last Admin: 08/23/23 09:13 Dose: Not Given Documented By: SU Non-Admin Reason: Patient Refused Pharmacy Consult (Consult Rx Vancomycin Dosing) 1 each MISCELLANE DAILY PRN PRN Reason: Consult order Sodium Chloride (0.9 % Sodium Chloride Flush 3 Ml Syringe) 3 ml IVFLUSH QSHIFT [facility] Last Admin: 08/23/23 09:10 Dose: 3 ml Documented By: SU Labs 08/23/23 07:09 08/23/23 13:18 Labs: Laboratory Results - last 24 hr 08/22/23 08/23/23 08/23/23 18:35 07:09 13:18 MCV 94.9 MCH 32.3 MCHC 34.0 RDW 12.5 Plt Count 276 MPV 11.2 Absolute Nucleated RBC 0.000 Nucleated RBC % (auto) 0.0 Anion Gap 14 13 10 L Estim Creat Clear Calc 150.4 150.4 147.7 Estimated GFR > 60 > 60 > 60 Random Glucose 127 H 95 104 Calcium 8.6 D 8.1 L 8.0 L Random Vancomycin 22.9 H Assessment and Plan (1) Opioid use disorder: Status: Acute (2) Cocaine use disorder: Status: Acute (3) Cardiomyopathy: Status: Acute (4) Encephalopathy: Status: Acute (5) Traumatic brachial plexopathy: Status: Acute (6) Compartment syndrome of forearm: Status: Acute (7) Secondary rhabdomyolysis: Status: Acute (8) Aspiration pneumonia: Status: Acute Plan 33 years old lady who presented with AMS from overdose developed Compartment, rhabdo, aspiration, CMP requring ICU admission and intubation with 4 surgeries to relieve the compartment. Compartment syndrome LUE forearm day by day progression, still having lot of pain ORthopedic team to do another cleaning surgery tomorrow NPO post midnight Narcotics for pain wound team following, wound vac in place acute Peripheral neuropathy 2/2 compartment pressure relieved by surgery neurology evaluation appreciated, prison follow up New onset acute Cardiomyopathy likely from hypoxia Echo on 08/17 showed 20% repeat Echo per ICU showed improvement cardiology rec starting carvedilol and consider KENNETH-I Aspiration pneumonia Continue IV Abx of Vanco and Meropenem cultures negative now follow clinical course Acute hypokalemia K of 2.7 give replacement and follow BMP Constipation Laxatives Drug abuse Addiction team following; started on Methadone New onset seizure Neurology eval one time incident, no need to treat and monitor for now DC Keppra and monitor DVT PPx SCDs The patient will need overnight hospital stay for treatment of compartment syndrome pending possible re-OP, cardiomyopathy and seizure eval by specialists pending safe discharge plan as well. Time Spent With Patient Time: Total time managing care of this patient today ____ minutes. Quality Stroke Does the patient have a stroke diagnosis?: No VTE Prior VTE?: No VTE Risk Level:: Medical - moderate - high VTE Device Contraindication: N/A - Device Ordered VTE Drug Contraindication: Treatment Not Indicated
[2023-08-23] MEDS: HYDROmorphone HCl 2 MG/ML VIAL IVPUSH ×2 (18:32→21:46)
[2023-08-23 18:45] LABS: Vancomycin Random 14.3 mcg/mL (15-20)
--- NOTE | 2023-08-23 19:02 | HE.PHANOTE ---
vancomycin addendum: level came back at 14.3, ok to keep same order
[2023-08-23] MEDS: Gabapentin 100 MG CAPSULE 200 MG PO (20:19)
[2023-08-23] MEDS: HYDROmorphone HCl 2 MG TABLET PO (20:19)
[2023-08-23] MEDS: carvediloL 3.125 MG TABLET PO (20:19)
[2023-08-23] MEDS: Docusate Sodium 100 MG CAPSULE PO (20:19)
[2023-08-23] MEDS: 0.9 % Sodium Chloride Flush 3 ML SYRINGE IVFLUSH (20:28)
[2023-08-24] MEDS: HYDROmorphone HCl 2 MG/ML VIAL IVPUSH ×5 (00:50→12:20)
[2023-08-24] MEDS: HYDROmorphone HCl 2 MG TABLET PO ×2 (02:01→11:36)
[2023-08-24 03:32] VITALS: BP 131/63; PULSE 99; RESP 19; TEMP 36.7; O2SAT 99
[2023-08-24 07:41] VITALS: BP 118/74; PULSE 92; RESP 20; TEMP 36.7; O2SAT 94
[2023-08-24 07:43] LABS: Hematocrit 26.4 % (37.0-47.0); Hemoglobin 8.8 g/dl (12.0-16.0); Mean Corpuscular HGB Conc 33.3 g/dl (31.0-35.0); Mean Corpuscular Hemoglobin 31.7 pg (27.0-33.0); Mean Platelet Volume 10.6 fL (9.4-12.3); Platelet Count 234 X10*3/uL (160-400); Red Blood Count 2.78 X10*6/uL (4.20-5.50); Red Cell Distribution Width 12.8 % (11.0-16.0); White Blood Count 9.4 X10*3/uL (4.8-10.8)
[2023-08-24 07:54] LABS: Anion Gap 12 (12-20); Blood Urea Nitrogen 5 mg/dL (9-16); Calcium 7.7 mg/dL (8.4-10.2); Carbon Dioxide 24 mmol/L (22-29); Chloride 106 mmol/L (96-108); Creatinine Clr Calc Pharmacy 161.7; Estimated Glomerular Filt Rate > 60; Glucose Random 89 mg/dL (60-115); Potassium 3.1 mmol/L (3.3-5.1); Sodium 139 mmol/L (135-145)
[2023-08-24 08:38] VITALS: BP 118/74; PULSE 92; O2SAT 94
[2023-08-24] MEDS: Docusate Sodium 100 MG CAPSULE PO ×2 (08:50→21:03)
[2023-08-24] MEDS: Gabapentin 100 MG CAPSULE 200 MG PO ×2 (08:50→21:03)
[2023-08-24] MEDS: carvediloL 3.125 MG TABLET PO ×2 (08:50→21:03)
[2023-08-24] MEDS: 0.9 % Sodium Chloride Flush 3 ML SYRINGE IVFLUSH ×3 (08:50→21:03)
--- NOTE | 2023-08-24 10:28 | MHC.CM.PN ---
Physical Therapy recommending acute rehab. Met with patient, who is agreeable to plan. Referrals placed, [facility] is following. Not medically cleared for DC at this time, OR tomorrow. CM will continue to follow for DC needs.
[2023-08-24 11:20] VITALS: BP 128/72; PULSE 97; RESP 20; TEMP 37.1; O2SAT 98
--- NOTE | 2023-08-24 12:03 | HO.PM.IMPN ---
Subjective Subjective Date of Service: 08/24/23 Interval History: still no feeling in left arm Physical Exam Vital Signs: Vital Signs: Last Vital Signs Temp 98.8 F 08/24/23 11:20 Pulse 97 08/24/23 11:20 Resp 20 08/24/23 11:20 BP 128/72 08/24/23 11:20 Pulse Ox 98 08/24/23 11:20 O2 Del Method Room Air 08/24/23 11:20 O2 Flow Rate 2 08/22/23 16:29 FiO2 35 08/19/23 07:58 BMI result Body Mass Index 29.3 Const: Other: Constitutional : Awake, interactive, not in distress Neck : Normal inspection, Supple Cardiovascular : RRR, no JVP, no lower extremity edema Respiratory : good bilateral air entry, no crackles, wheezes or rhonchi Gastrointestinal: soft, lax, Normal bowel sounds, Non tender Skin : Warm, Dry, LUE surgical wounds covered with dressing, wound vac in place Neurological : Alert & oriented x3, LUE warm fingers but no sensation or motor function, fair sensation over LUE forearm-12 within normal Objective Data Active Medications Carvedilol (Carvedilol 3.125 Mg Tablet) 3.125 mg PO BID [facility]; Protocol Last Admin: 08/24/23 08:50 Dose: 3.125 mg Documented By: SOLO Docusate Sodium (Docusate Sodium 100 Mg Capsule) 100 mg PO BID [facility] Last Admin: 08/24/23 08:50 Dose: 100 mg Documented By: SOLO Gabapentin (Gabapentin 100 Mg Capsule) 200 mg PO BID [facility] Last Admin: 08/24/23 08:50 Dose: 200 mg Documented By: SOLO Hydromorphone HCl (Hydromorphone Hcl 2 Mg/Ml Vial) 2 mg IVPUSH Q3H [facility]; Protocol Last Admin: 08/24/23 08:50 Dose: 2 mg Documented By: SOLO Hydromorphone HCl (Hydromorphone Hcl 2 Mg Tablet) 2 mg PO Q6H PRN PRN Reason: Pain, Severe (Pain Scale 7-10) Last Admin: 08/24/23 11:36 Dose: 2 mg Documented By: DELMA Meropenem 1 gm/ Sodium (Chloride) 100 mls @ 200 mls/hr IV Q8H [facility] Last Infusion: 08/24/23 07:37 Dose: Infused Documented By: LORRAINE Vancomycin HCl 750 mg/ Sodium (Chloride) 265 mls @ 265 mls/hr IV Q8H [facility] Last Admin: 08/24/23 11:37 Dose: 265 mls/hr Documented By: DELMA Lactulose (Lactulose 20 Gm/30 Ml Solution) 20 gm PO TID [facility] Last Admin: 08/24/23 08:50 Dose: Not Given Documented By: SOLO Non-Admin Reason: Patient Refused Pharmacy Consult (Consult Rx Vancomycin Dosing) 1 each MISCELLANE DAILY PRN PRN Reason: Consult order Sodium Chloride (0.9 % Sodium Chloride Flush 3 Ml Syringe) 3 ml IVFLUSH QSHIFT [facility] Last Admin: 08/24/23 08:50 Dose: 3 ml Documented By: SOLO Labs 08/24/23 07:12 08/24/23 07:12 Labs: Laboratory Results - last 24 hr 08/23/23 08/23/23 08/24/23 13:18 18:04 07:12 MCV 95.0 MCH 31.7 MCHC 33.3 RDW 12.8 Plt Count 234 MPV 10.6 Absolute Nucleated RBC 0.000 Nucleated RBC % (auto) 0.0 Anion Gap 10 L 12 Estim Creat Clear Calc 147.7 161.7 Estimated GFR > 60 > 60 Random Glucose 104 89 Calcium 8.0 L 7.7 L Random Vancomycin 14.3 L Assessment and Plan (1) Opioid use disorder: Status: Acute (2) Cocaine use disorder: Status: Acute (3) Cardiomyopathy: Status: Acute (4) Encephalopathy: Status: Acute (5) Traumatic brachial plexopathy: Status: Acute (6) Compartment syndrome of forearm: Status: Acute (7) Secondary rhabdomyolysis: Status: Acute (8) Aspiration pneumonia: Status: Acute Plan 33 years old lady who presented with AMS from overdose developed Compartment, rhabdo, aspiration, CMP requring ICU admission and intubation with 4 surgeries to relieve the compartment. Compartment syndrome LUE forearm day by day progression, still having lot of pain ORthopedic team to do another cleaning surgery tomorrow NPO post midnight Narcotics for pain wound team following, wound vac in place acute Peripheral neuropathy 2/2 compartment neurology evaluation appreciated, superintendent container terminal follow up New onset acute Cardiomyopathy likely from hypoxia Echo on 08/17 showed 20% repeat Echo per ICU showed improvement cardiology rec starting carvedilol and consider KENNETH-I i fable to tolerate Aspiration pneumonia completed course of IV Abx of Vanco and Meropenem cultures negative now Acute hypokalemia give replacement Constipation Laxatives Drug abuse Addiction team following; started on Methadone New onset seizure Neurology eval one time incident, no need to treat and monitor for now DC Keppra and monitor DVT PPx SCDs - due to ongoing interventions reason for continued hospitalization:ongiong surgical interventions Time Spent With Patient Time: Total time managing care of this patient today ____ minutes. Quality Stroke Does the patient have a stroke diagnosis?: No VTE Prior VTE?: No VTE Risk Level:: Medical - moderate - high VTE Device Contraindication: N/A - Device Ordered VTE Drug Contraindication: Treatment Not Indicated
[2023-08-24] MEDS: Potassium Chloride ER 20 MEQ TAB.ER.PRT 40 MEQ PO (12:21)
[2023-08-24] MEDS: polyethylene glycoL 3350 17 GM POWD.PACK PO (12:21)
--- NOTE | 2023-08-24 13:45 | MHC.RECOVRN ---
Met with pt in 459 to follow up and provide support. Pt laying in bed, awake, alert, easily engages in conversation, eating lunch. Pt reports pain in arm and leg feeling tingly. Pt requesting pain medication be altered to help manage pain better. Pt denies other questions or concerns at this time. Discussed with Nita Swan APRN.
--- NOTE | 2023-08-24 14:56 | P.CONOP_ITS ---
History of Present Illness HPI Consult date: 08/24/23 Requesting physician: Zackary Galvez Consult reason: other (weakness) Chief complaint: weakness Narrative: 33 year old woman, admitted 08/17/23, after being found down at home, OD, requring ICU admission and intubation. Left forearm compartment syndrome, requiring 4 surgeries so far. She has no recollection of events. First memory was in the ER. Currently not sedated. Complains of pain on left upper lower extremity. Receives Dilaudid every 3 hours and p.r.n.. She is unable to move left upper extremity at all. Wound VAC is in place. Moving both lower extremities while in bed. But complained of weakness and pain on left lower extremity. Pain/numbness on dorsal left foot and lower leg. Denies any previous history of neck pain. Mild back pain on and off in the past, denies history of degenerative disease. Functional history: Was independent prior to admission without assistive device. Unemployed. Does not drive. Lives with parents who are both healthy and able, and 14-year-old son. Lives in a house with 1 flight of stairs to enter. Can stay on the 1st floor after admission. Imaging done so far: Head CT-no acute findings Left elbow x-ray-no acute findings Review of Systems 2 Constitutional: Constitutional: Reports as per HPI Eyes: Eyes: Reports no additional eye complaints ENT: Reports system reviewed and no additional complaints, except as documented Cardiovascular: Cardiovascular: Reports no additional cardiovascular complaints Respiratory: Respiratory: Reports no additional respiratory complaints Gastrointestinal: Gastrointestinal: Reports constipation Genitourinary: Genitourinary: Reports no additional female genitourinary complaints Musculoskeletal: Musculoskeletal: Reports as per HPI Integumentary/Breasts: Skin/Breast: Reports as per HPI Neurologic: Reports as per HPI Psychiatric: Psychiatric: Reports as per HPI Endocrine: Endocrine: Reports no additional endocrine complaints Hematologic/Lymphatic: Hematologic/Lymphatic: Reports as per HPI Allergic/Immunologic: Allergic/Immunologic: Reports no additional allergic/immunologic complaints [facility] Past Medical History Medical History Substance abuse Social History Social History Household Members: Family and Children Household Members Other:: Parents, siblings, son Housing: House Do you presently have visiting nurse or other home services: No Unable to assess alcohol history related to: Unable to respond Alcohol intake: current Alcohol intake frequency: 0-2 drinks per day Patient Tobacco Use Status: Current everyday Tobacco user Tobacco use type: Cigarette Use of substances other than those prescribed or required for medical reasons: Yes Substance Use Type: Heroin Substance Use Frequency: Occasionally Last Used Substance: Weeks (ago) Currently Displaying Signs/Symptoms of Drug Intoxication Withdrawal: No Have you been hit, kicked, punched, or otherwise hurt by someone within the past year? If so, by whom?: No Do you feel safe in your current relationship?: No Current Relationship Is there a partner from a previous relationship who is making you feel unsafe now?: No Are you made to feel afraid or neglected: No Are you DNR?: No Advance Directives: No Advance Directives Information Provided: No (AMS) Advance Directives on File: No Do you have thoughts of harming others: None Do you have a plan to hurt others: No Plan Recently lost weight without trying: No How much weight loss: Not applicable Eating poorly because of decreased appetite: No Nutrition screen score: 0 Nutrition Risks: No Nutritional Risk Patient : No : No Poor oral hygiene: No Meds Allergies Allergy/AdvReac Type Severity Reaction Status Date / Time No Known Allergies Allergy Verified 04/24/23 13:48 Active Medications: Current Medications Carvedilol (Carvedilol 3.125 Mg Tablet) 3.125 mg PO BID [facility]; Protocol Last Admin: 08/24/23 08:50 Dose: 3.125 mg Docusate Sodium (Docusate Sodium 100 Mg Capsule) 100 mg PO BID [facility] Last Admin: 08/24/23 08:50 Dose: 100 mg Gabapentin (Gabapentin 100 Mg Capsule) 200 mg PO BID [facility] Last Admin: 08/24/23 08:50 Dose: 200 mg Hydromorphone HCl (Hydromorphone Hcl 2 Mg Tablet) 2 mg PO Q6H PRN PRN Reason: Pain, Severe (Pain Scale 7-10) Last Admin: 08/24/23 11:36 Dose: 2 mg Hydromorphone HCl (Hydromorphone Hcl 2 Mg/Ml Vial) 3 mg IVPUSH Q3H [facility]; Protocol Lactulose (Lactulose 20 Gm/30 Ml Solution) 20 gm PO TID [facility] Last Admin: 08/24/23 12:27 Dose: Not Given Morphine Sulfate (Morphine Sulfate Er 15 Mg Tablet.Er) 15 mg PO Q8H [facility] Sodium Chloride (0.9 % Sodium Chloride Flush 3 Ml Syringe) 3 ml IVFLUSH QSHIFT [facility] Last Admin: 08/24/23 08:50 Dose: 3 ml Home Medications Medication Instructions Recorded Confirmed Last Taken Type No Known Home Meds 08/16/23 08/16/23 Unknown History Physical Exam 2 Vital Signs: Vital Signs: Last Vital Signs Temp 98.8 F 08/24/23 11:20 Pulse 97 08/24/23 11:20 Resp 20 08/24/23 11:20 BP 128/72 08/24/23 11:20 Pulse Ox 98 08/24/23 11:20 O2 Del Method Room Air 08/24/23 11:20 O2 Flow Rate 2 08/22/23 16:29 FiO2 35 08/19/23 07:58 BMI result Body Mass Index 29.3 Const: General: cooperative, well developed, alert and awake O rientation/consciousness: oriented to person, oriented to place and oriented to time Neuro: Other: Left upper extremity 0/5, wound VAC in place. Swelling noted on left upper extremity. Numbness on right hand and fingers. Left lower extremity at least 4+/5 on left hip flexion and knee extension with encouragement because of complaints of pain. 2/5 on left dorsiflexion and EHL. Numb and sensitive to touch on left dorsal foot. Right upper lower extremities 5/5. Normal sensation to touch on RUE and RLE. Reflexes are intact in both lower extremities, symmetric. No excessive tone. No spasticity. Hyporeflexia on left upper extremity. Intact reflexes in right upper extremity. Negative Shawn sign. General: oriented to person, oriented to place, oriented to time and Unable to assess gait Cranial nerves: Yes CN's II-XII intact bilaterally Gait exam (Neuro): Unable to assess gait Results Labs 08/24/23 07:12 08/24/23 07:12 Labs: Abnormal lab results 08/23/23 08/24/23 Range/Units 18:04 07:12 RBC 2.78 L (4.20-5.50) X10*6/uL Hgb 8.8 L (12.0-16.0) g/dl Hct 26.4 L (37.0-47.0) % Potassium 3.1 L (3.3-5.1) mmol/L BUN 5 L (9-16) mg/dL Calcium 7.7 L (8.4-10.2) mg/dL Random Vancomycin 14.3 L (15-20) mcg/mL H & H 08/16/23 08/17/23 08/18/23 Range/Units 07:04 04:43 04:28 Hgb 16.0 D 13.7 12.4 (12.0-16.0) g/dl Hct 48.3 H D 41.3 37.9 (37.0-47.0) % 08/19/23 08/20/23 08/21/23 Range/Units 05:05 05:15 06:43 Hgb 10.7 L 9.6 L 10.2 L (12.0-16.0) g/dl Hct 32.6 L 29.1 L 30.3 L (37.0-47.0) % 08/22/23 08/23/23 08/24/23 Range/Units 07:08 07:09 07:12 Hgb 10.5 L 10.1 L 8.8 L (12.0-16.0) g/dl Hct 30.9 L 29.7 L 26.4 L (37.0-47.0) % Coagulation 08/20/23 Range/Units 07:51 INR 0.9 (0.9-1.1) All other labs normal. Assessment and Plan (1) Brachial plexopathy: Status: Acute Left upper extremity weakness most likely from prolonged compression. Currently appears to have panplexus, probably because of swelling. Will be able to determine better once swelling subsides and wound heals. Recommend passive range of motion with PT as long as orthopedics allows. Wait for wound to heal to do EMG. (2) Peroneal neuropathy at knee: Qualifiers: Laterality: left Qualified Code(s): G57.32 - Lesion of lateral popliteal nerve, left lower limb Status: Acute Given footdrop and distribution of her pain/numbness, suspect left lower extremity weakness is from peroneal neuropathy, most likely at the fibula, most likely due to prolonged compression. Recommend night splints to keep left foot in dorsiflexion. Consider AFO. PT to try edge of bed exercises, and to try standing with assistance. We can do EMG as early as 2nd week post injury, once stable to come down to EMG lab. Or can be done outpatient as well. Plan Stool softener for bowel movements. None since admission per patient. Turn every 2 hours in bed to avoid sacral ulcers. Up in chair for meals, when stable and cleared. Continue PT. Thank you for this referral. Mini Watkins MD, EFREN Board Certified, [place] [employer] and [employer] (ABPMR) Board Certified, [place] [employer] Electro[employer] (ABEM) Time Spent With Patient Time: Total time managing care of this patient today 45 minutes. Procedures Date of Service Date of Service: 08/24/23
[2023-08-24] MEDS: Morphine Sulfate ER 15 MG TABLET.ER PO ×2 (15:11→22:48)
[2023-08-24] MEDS: HYDROmorphone HCl 2 MG/ML VIAL 3 MG IVPUSH ×4 (15:11→23:34)
[2023-08-24 15:16] VITALS: BP 104/62; PULSE 95; RESP 20; TEMP 36.7; O2SAT 94
--- NOTE | 2023-08-24 17:51 | HO.WOUND ---
Wound Consult: Initial 33yr old female admitted to [facility] on 08/16/23 09:37 - See progress notes and H&P for detailed history. Wound consult placed in [facility] - details of consult request new wound vac canister to be obtained. Wound vac canister has since been changed and is not currently in need of change. Spare provided at bedside. Wound vac currently not alarming and history checked no extended alarms noted. Seal check completed and no leaking noted set to 75mmhg - not changed by this service writer and per pt statement that is what Surgical team wants it set to. Per discussion with direct care team - air leak noted over night - treated with tegaderm application - no longer leaking. Pt confirms this was due to her itching at the drape. Pt educated to try to not scratch and peel at drape dressing - pt demonstrates understanding. Wound vac remains in place. Defer to Surgical team per pt, direct care team and chart review plan is to bring pt to OR tomorrow for further debridement. No topical recommendations needed from Inpatient wound care nurse at this time. Please reconsult wound care nurse if topical recommendations are needed. .
[2023-08-24 19:05] VITALS: BP 104/68; PULSE 83; RESP 20; TEMP 36.9; O2SAT 93
[2023-08-25] VITALS (11 sets, daily range): BP systolic 100–129; BP diastolic 53–84; PULSE 84–96; RESP 14–20; TEMP 36.1–37.3; O2SAT 90–99
[2023-08-25] MEDS: HYDROmorphone HCl 2 MG/ML VIAL 3 MG IVPUSH ×6 (02:31→20:40)
[2023-08-25] MEDS: Morphine Sulfate ER 15 MG TABLET.ER PO ×3 (06:31→23:46)
[2023-08-25 07:16] LABS: Creatinine Clr Calc Pharmacy 145.3; Estimated Glomerular Filt Rate > 60
[2023-08-25] MEDS: carvediloL 3.125 MG TABLET PO ×2 (08:49→20:33)
[2023-08-25] MEDS: Gabapentin 100 MG CAPSULE 200 MG PO ×2 (08:49→20:33)
[2023-08-25] MEDS: Docusate Sodium 100 MG CAPSULE PO ×2 (08:49→20:33)
[2023-08-25] MEDS: 0.9 % Sodium Chloride Flush 3 ML SYRINGE IVFLUSH ×3 (08:50→20:34)
[2023-08-25 09:05] LABS: Anion Gap 15 (12-20); Carbon Dioxide 27 mmol/L (22-29); Chloride 99 mmol/L (96-108); Potassium 3.5 mmol/L (3.3-5.1); Sodium 137 mmol/L (135-145)
--- NOTE | 2023-08-25 10:56 | MHC.CM.PN ---
EMR reviewed. Per MD rounds pt is not medically cleared for DC at this time. [facility] continues to follow for AR placement when appropriate. CM will follow.
[2023-08-25 11:05] LABS: Hematocrit 30.7 % (37.0-47.0); Hemoglobin 10.1 g/dl (12.0-16.0)
--- NOTE | 2023-08-25 11:08 | P.PNIM_ITS ---
Subjective Subjective Date of Service: 08/25/23 Interval History: no changes Physical Exam 2 Vital Signs: Vital Signs: Last Vital Signs Temp 98.4 F 08/25/23 07:45 Pulse 91 08/25/23 09:38 Resp 16 08/25/23 07:45 BP 100/53 L 08/25/23 09:38 Pulse Ox 96 08/25/23 09:38 O2 Del Method Room Air 08/25/23 07:45 O2 Flow Rate 2 08/22/23 16:29 FiO2 35 08/19/23 07:58 BMI result Body Mass Index 29.3 Const: General: cooperative, well developed, alert and awake O rientation/consciousness: oriented to person, oriented to place and oriented to time Neuro: Other: Left upper extremity 0/5, wound VAC in place. Swelling noted on left upper extremity. Numbness on right hand and fingers. Left lower extremity at least 4+/5 on left hip flexion and knee extension with encouragement because of complaints of pain. 2/5 on left dorsiflexion and EHL. Numb and sensitive to touch on left dorsal foot. Right upper lower extremities 5/5. Normal sensation to touch on RUE and RLE. Reflexes are intact in both lower extremities, symmetric. No excessive tone. No spasticity. Hyporeflexia on left upper extremity. Intact reflexes in right upper extremity. Negative Shawn sign. General: oriented to person, oriented to place, oriented to time and Unable to assess gait Cranial nerves: Yes CN's II-XII intact bilaterally Gait exam (Neuro): Unable to assess gait Objective Data Active Medications Carvedilol (Carvedilol 3.125 Mg Tablet) 3.125 mg PO BID [facility]; Protocol Last Admin: 08/25/23 08:49 Dose: 3.125 mg Documented By: SOLO Docusate Sodium (Docusate Sodium 100 Mg Capsule) 100 mg PO BID [facility] Last Admin: 08/25/23 08:49 Dose: 100 mg Documented By: SOLO Gabapentin (Gabapentin 100 Mg Capsule) 200 mg PO BID [facility] Last Admin: 08/25/23 08:49 Dose: 200 mg Documented By: SOLO Hydromorphone HCl (Hydromorphone Hcl 2 Mg Tablet) 2 mg PO Q6H PRN PRN Reason: Pain, Severe (Pain Scale 7-10) Last Admin: 08/24/23 11:36 Dose: 2 mg Documented By: DELMA Hydromorphone HCl (Hydromorphone Hcl 2 Mg/Ml Vial) 3 mg IVPUSH Q3H [facility]; Protocol Last Admin: 08/25/23 08:50 Dose: 3 mg Documented By: SOLO Lactulose (Lactulose 20 Gm/30 Ml Solution) 20 gm PO TID [facility] Last Admin: 08/25/23 09:01 Dose: Not Given Documented By: SOLO Non-Admin Reason: Patient Refused Morphine Sulfate (Morphine Sulfate Er 15 Mg Tablet.Er) 15 mg PO Q8H [facility] Last Admin: 08/25/23 06:31 Dose: 15 mg Documented By: LORRAINE Sodium Chloride (0.9 % Sodium Chloride Flush 3 Ml Syringe) 3 ml IVFLUSH QSHIFT [facility]PL[facility] Last Admin: 08/25/23 08:50 Dose: 3 ml Documented By: SOLO Labs 08/25/23 10:44 08/25/23 08:31 Labs: Laboratory Results - last 24 hr 08/25/23 08/25/23 06:26 08:31 Hold Purple Top SEE NOTE Anion Gap 15 Estim Creat Clear Calc 145.3 Estimated GFR > 60 Assessment and Plan (1) Opioid use disorder: Status: Acute (2) Cocaine use disorder: Status: Acute (3) Cardiomyopathy: Status: Acute (4) Encephalopathy: Status: Acute (5) Traumatic brachial plexopathy: Status: Acute (6) Compartment syndrome of forearm: Status: Acute (7) Secondary rhabdomyolysis: Status: Acute (8) Aspiration pneumonia: Status: Acute Plan 33 years old lady who presented with AMS from overdose developed Compartment, rhabdo, aspiration, CMP requring ICU admission and intubation with 4 surgeries to relieve the compartment. Compartment syndrome LUE forearm day by day progression, still having lot of pain ORthopedic team to do another cleaning surgery today NPO post midnight Narcotics for pain wound team following, wound vac in place acute Peripheral neuropathy 2/2 compartment neurology evaluation appreciated, terminal clerk follow up New onset acute Cardiomyopathy likely from hypoxia Echo on 08/17 showed 20% repeat Echo per ICU showed improvement cardiology rec starting carvedilol and consider KENNETH-I i fable to tolerate Aspiration pneumonia completed course of IV Abx of Vanco and Meropenem cultures negative now Acute hypokalemia given replacement Constipation Laxatives Drug abuse Addiction team following; started on Methadone New onset seizure Neurology eval one time incident, no need to treat and monitor for now DC Keppra and monitor DVT PPx SCDs - due to ongoing interventions reason for continued hospitalization:ongiong surgical interventions Time Spent With Patient Time: Total time managing care of this patient today ____ minutes. Quality Stroke Does the patient have a stroke diagnosis?: No VTE Prior VTE?: No VTE Risk Level:: Medical - moderate - high VTE Device Contraindication: N/A - Device Ordered VTE Drug Contraindication: Treatment Not Indicated
[2023-08-25] MEDS: HYDROmorphone HCl 2 MG TABLET 3 MG PO ×3 (12:59→22:18)
--- NOTE | 2023-08-25 16:25 | P.BOP_ITS ---
Brief Operative Note Date of Service: 08/25/23 Pre-op diagnosis: left arm compartment syndrome Post-op diagnosis: same Procedure: Debridement and irrigation with delayed primary closure and vacuum assisted dressing Surgeon: Devang Long MD Anesthesia: MAC Was an Fermenter Operator used for this Procedure?: No Estimated blood loss (mL): 150 Pathology: other Condition: stable Disposition: PACU
--- NOTE | 2023-08-25 16:29 | W.PM.OPN ---
Operative Note Operative Note Date of Service: 08/20/23 Narrative: Date of Service: 08/20/23 Pre-op diagnosis: left forearm compartment syndrome Post-op diagnosis: same Procedure: Irrigation and debridement left forearm with partial delayed closure Implants: None Surgeon: Devang Long MD Anesthesia: MAC Was an Dry Chain Worker used for this Procedure?: No Estimated blood loss (mL): 25 IV fluids (mL): 500 Pathology: none sent Condition: stable Disposition: PACU Patient was brought to the operating room and placed supine on the surgical table. She was prepped and draped in standard sterile fashion and a time out was called to identify proper site, proper procedure.I began by opening up the entirety of the incision. There was bleeding tissue but the majority of the superficial and deep volar compartments did not look healthy. there was reactivity to electrocautery of the brachioradialis and some of the most distal aspect of the superficial flexors. The majority of the flexors and the deep flexors in the volar and deep compartments appeared to be at least partially necrotic. The tissue was unreactive to the cyst electrical stimulation and not bleeding. The tissue was healthy at the carpal tunnel and just proximal to this but as I examined more proximally the tissue was brown, falling off the tendon and unhealthy. I debrided approximately 30% of the bulk of the musculature of these 2 compartments. More proximally the pronator did not appear healthy and this was partially debrided. Care was taken to avoid the median nerve and radial and ulnar artery. The biceps appeared healthy with mild reactivity and I did not remove any of this. I irrigated copiously and then closed the proximal 75% of the wound and a wound VAC was placed on the distal 25%. This was then covered with a proveens VAC dressing. Patient was then awakened from sedation and brought to the recovery room in stable condition.
--- NOTE | 2023-08-25 16:42 | P.OP_ITS ---
Operative Note Operative Note Date of Service: 08/22/23 Narrative: Date of Service: 08/22/23 Pre-op diagnosis: Left forearm compartment syndrome Post-op diagnosis: same Procedure: Debridement and irrigation left forearm partial delayed primary closure and placement of vacuum assisted wound device Implants: none Surgeon: Devang Long MD Anesthesia: MAC Was an Vice President Payer used for this Procedure?: Yes Vice President Payer: Zackary Galvez Estimated blood loss (mL): 50 Pathology: none sent Condition: stable Disposition: PACU Patient was brought to the operating room and placed supine on the surgical table. She was prepped and draped in standard sterile fashion and a time out was called to identify proper site, proper procedure. Again I wrote opened up the entire wound. The most distal aspect of the volar compartments appeared healthy and the most proximal aspect of the incision also appeared healthy but in between there was necrotic muscle belly. All the nonviable tissue was identified and removed with a Metzenbaum. The neurovascular structures were protected. The viability of the tissue was assessed with visual inspection and electrical stimulation. Unresponsive tissues that appeared white or absent of blood flow was removed. At this point I had removed about 50% of the muscle tissue in the volar superficial and deep compartment. there was adequate blood flow both radially and ulnarly. The brachioradialis and some of the superficial volar flexors distally did respond electrical stimulation. At this point I irrigated with gravity irrigation and 75% of the proximal wound was closed in 25% left open and wound VAC sponge covered with a probe vena vacuum assisted dressing was applied. Patient was awakened from sedation brought to the recovery room in stable condition.
--- NOTE | 2023-08-25 16:50 | P.OP_ITS ---
Operative Note Operative Note Date of Service: 08/25/23 Narrative: Date of Service: 08/25/23 Pre-op diagnosis: left arm compartment syndrome Post-op diagnosis: same Procedure: Debridement and irrigation with delayed primary closure and vacuum assisted dressing Surgeon: Devang Long MD Anesthesia: MAC Was an Sort Operations Supervisor used for this Procedure?: No Estimated blood loss (mL): 150 Pathology: other Condition: stable Disposition: PACU Patient was brought to the operative room placed supine on the hand table and prepped and draped in standard sterile fashion. Time-out called ever purpose I procedure proper surgeon. I began by removing the wound VAC sponge in opening up the incision. There was purulence in the volar compartment. The skin and subcutaneous tissue was bleeding circumferentially. 90% of the superficial volar and deep volar compartment was necrotic. This necrotic tissue was identified and removed. It was assessed with electrical stimulation and visual inspection and tissue that was felt nonviable I was removed with Metzenbaum scissors. Care was taken to avoid the neurovascular bundle. The pronator was also incised with 10% approximately left. Some of the superficial aspect of the brachia radialis was nonviable and excised but there was tissue that responded to electrical stimulation in the brachioradialis distally among 1 or 2 of the deep and superficial flexors but proximally these were nonviable. I removed any nonviable tissue. There was firmness in the distal aspect of the upper arm but the biceps and brachialis appeared viable and did respond to electrical stimulation . Once I had removed all the nonviable tissue I irrigated copiously and at this point I would have been able to close the wound in tire leave but I left approximately 3 cm open in the mid proximal aspect of the incision and over the central aspect of the volar forearm to apply a wound VAC sponge which was then covered with a probe vena vacuum assisted sponge. This held suction and was applied without difficulty. Patient was Awakened from sedation brought to the recovery room in stable condition. There were no known complications. Patient will be started on broad-spectrum antibiotics. A culture was obtained although given that she has been on antibiotics it will likely be unhelpful.
[2023-08-25] MEDS: Acetaminophen 1,000 MG/100 ML PIGGYBACK 400 MG IV (17:00)
[2023-08-25] MEDS: Piperacillin Sodium/Tazobactam 3.375 GM in 0.9 % Sodium Chloride 50 ML IV ×2 (17:07→22:21)
[2023-08-25] MEDS: Lactated Ringers 1,000 ML 50 ML IVCONT (17:13)
[2023-08-25] MEDS: vancomycin HCL 1,500 MG in 0.9 % Sodium Chloride 500 ML 333.33 MG IV (17:24)
--- NOTE | 2023-08-25 17:54 | HE.PHANOTE ---
Vancomycin Dosing Vancomycin to be restart per Dr. sIbell. Patient was stable on 750 mg Q8H, last dose was given 08/24 @ 1137. Since patient has not had a dose of vanco for > 24 hours will give one time dose of vancomycin 1500 mg then restart vancomycin 750 mg Q8H. Level to be drawn after 3 doses on 08/26 @ 1500. Pharmacy will monitor renal function daily. Marcia Nolasco, SumiD
[2023-08-25] MEDS: oxyCODONE HCl Immed Release 5 MG TABLET PO (18:54)
[2023-08-25] MEDS: Lactulose 20 GM/30 ML SOLUTION PO (20:33)
[2023-08-26] VITALS (9 sets, daily range): BP systolic 113–126; BP diastolic 56–75; PULSE 92–112; RESP 16–20; TEMP 36.7–37.2; O2SAT 93–98
[2023-08-26] MEDS: HYDROmorphone HCl 2 MG TABLET 3 MG PO ×8 (01:04→20:49)
[2023-08-26] MEDS: vancomycin HCL 750 MG in 0.9 % Sodium Chloride 250 ML 265 MG IV ×2 (01:05→08:48)
[2023-08-26] MEDS: HYDROmorphone HCl 2 MG/ML VIAL 3 MG IVPUSH ×5 (03:08→23:29)
[2023-08-26] MEDS: Piperacillin Sodium/Tazobactam 3.375 GM in 0.9 % Sodium Chloride 50 ML IV ×4 (05:49→22:51)
[2023-08-26] MEDS: Morphine Sulfate ER 15 MG TABLET.ER PO ×3 (06:26→22:50)
[2023-08-26 07:31] LABS: Hematocrit 24.1 % (37.0-47.0); Hemoglobin 7.9 g/dl (12.0-16.0); Mean Corpuscular HGB Conc 32.8 g/dl (31.0-35.0); Mean Corpuscular Hemoglobin 31.2 pg (27.0-33.0); Mean Corpuscular Volume 95.3 fL (80.0-98.0); Mean Platelet Volume 11.3 fL (9.4-12.3); Platelet Count 272 X10*3/uL (160-400); Red Blood Count 2.53 X10*6/uL (4.20-5.50); Red Cell Distribution Width 12.6 % (11.0-16.0); White Blood Count 11.5 X10*3/uL (4.8-10.8)
[2023-08-26 07:47] LABS: Anion Gap 14 (12-20); Blood Urea Nitrogen 7 mg/dL (9-16); Calcium 8.4 mg/dL (8.4-10.2); Carbon Dioxide 24 mmol/L (22-29); Chloride 101 mmol/L (96-108); Creatinine Clr Calc Pharmacy 133.9; Estimated Glomerular Filt Rate > 60; Glucose Fasting 104 mg/dL (60-99); Potassium 3.7 mmol/L (3.3-5.1); Sodium 135 mmol/L (135-145)
[2023-08-26] MEDS: Docusate Sodium 100 MG CAPSULE PO ×2 (08:35→19:56)
[2023-08-26] MEDS: Gabapentin 100 MG CAPSULE 200 MG PO ×2 (08:35→19:55)
[2023-08-26] MEDS: carvediloL 3.125 MG TABLET PO ×2 (08:35→19:56)
[2023-08-26] MEDS: 0.9 % Sodium Chloride Flush 3 ML SYRINGE IVFLUSH ×2 (08:35→16:03)
[2023-08-26] MEDS: Lactated Ringers 1,000 ML 50 ML IVCONT (08:49)
--- NOTE | 2023-08-26 12:23 | HO.POSTANES ---
Post Anesthesia Evaluation Post Anesthesia Evaluation Date of Service: 08/25/23 Vital Signs: Vital Signs Temp Pulse Resp BP Pulse Ox O2 Del Method 08/26/23 11:36 98.6 F 105 H 18 119/63 96 Room Air 08/26/23 08:00 98.9 F 112 H 18 120/75 95 Room Air 08/26/23 04:00 98.2 F 112 H 18 126/56 L 93 Room Air Anesthesia: Monitored Pain Control: Satisfactory Nausea/Vomiting: None Hydration: Adequate Anesthesia-Related Issues: No Anes. Related Issues
--- NOTE | 2023-08-26 13:17 | P.PNIM_ITS ---
Subjective Subjective Date of Service: 08/26/23 Interval History: no changes Physical Exam 2 Vital Signs: Vital Signs: Last Vital Signs Temp 98.6 F 08/26/23 11:36 Pulse 105 H 08/26/23 11:36 Resp 18 08/26/23 11:36 BP 119/63 08/26/23 11:36 Pulse Ox 96 08/26/23 11:36 O2 Del Method Room Air 08/26/23 11:36 O2 Flow Rate 3 08/25/23 16:54 FiO2 35 08/19/23 07:58 BMI result Body Mass Index 29.3 Const: General: cooperative, well developed, alert and awake O rientation/consciousness: oriented to person, oriented to place and oriented to time Neuro: Other: Left upper extremity 0/5, wound VAC in place. Swelling noted on left upper extremity. Numbness on right hand and fingers. Left lower extremity at least 4+/5 on left hip flexion and knee extension with encouragement because of complaints of pain. 2/5 on left dorsiflexion and EHL. Numb and sensitive to touch on left dorsal foot. Right upper lower extremities 5/5. Normal sensation to touch on RUE and RLE. Reflexes are intact in both lower extremities, symmetric. No excessive tone. No spasticity. Hyporeflexia on left upper extremity. Intact reflexes in right upper extremity. Negative Shawn sign. General: oriented to person, oriented to place, oriented to time and Unable to assess gait Cranial nerves: Yes CN's II-XII intact bilaterally Gait exam (Neuro): Unable to assess gait Objective Data Active Medications Carvedilol (Carvedilol 3.125 Mg Tablet) 3.125 mg PO BID [facility]; Protocol Last Admin: 08/26/23 08:35 Dose: 3.125 mg Documented By: SU Docusate Sodium (Docusate Sodium 100 Mg Capsule) 100 mg PO BID [facility] Last Admin: 08/26/23 08:35 Dose: 100 mg Documented By: SU Fentanyl (Fentanyl Citrate/Pf 100 Mcg/2 Ml Vial) 50 mcg IVPUSH Q5M PRN; Protocol PRN Reason: Pain, Severe (Pain Scale 7-10) Gabapentin (Gabapentin 100 Mg Capsule) 200 mg PO BID [facility] Last Admin: 08/26/23 08:35 Dose: 200 mg Documented By: SU Hydromorphone HCl (Hydromorphone Hcl 2 Mg Tablet) 3 mg PO Q3H [facility] Last Admin: 08/26/23 12:40 Dose: 3 mg Documented By: SU Hydromorphone HCl (Hydromorphone Hcl 2 Mg/Ml Vial) 3 mg IVPUSH Q3H PRN; Protocol PRN Reason: severe pain Last Admin: 08/26/23 12:39 Dose: 3 mg Documented By: SU Hydromorphone HCl (Hydromorphone Hcl 0.5 Mg/0.5 Ml Syringe) 0.5 mg IVPUSH Q5M PRN; Protocol PRN Reason: Pain, Severe (Pain Scale 7-10) Lactated Ringer's (Lr) 1,000 mls @ 50 mls/hr IVCONT .Q20H [facility] Last Admin: 08/26/23 08:49 Dose: 50 mls/hr Documented By: SU Piperacillin Sod/Tazobactam (Sod 3.375 gm/ Sodium Chloride) 50 mls @ 100 mls/hr IV Q6H [facility] Last Infusion: 08/26/23 11:59 Dose: Infused Documented By: SU Vancomycin HCl 750 mg/ Sodium (Chloride) 265 mls @ 265 mls/hr IV Q8H [facility] Last Infusion: 08/26/23 10:06 Dose: Infused Documented By: SU Lactulose (Lactulose 20 Gm/30 Ml Solution) 20 gm PO TID [facility] Last Admin: 08/26/23 08:56 Dose: Not Given Documented By: SU Non-Admin Reason: Patient Refused Morphine Sulfate (Morphine Sulfate Er 15 Mg Tablet.Er) 15 mg PO Q8H [facility] Last Admin: 08/26/23 06:26 Dose: 15 mg Documented By: BERNARD Oxycodone HCl (Oxycodone Hcl Immed Release 5 Mg Tablet) 10 mg PO ONCE PRN PRN Reason: Pain, Severe (Pain Scale 7-10) Pharmacy Consult (Consult Rx Vancomycin Dosing) 1 each MISCELLANE DAILY PRN PRN Reason: Consult order Sodium Chloride (0.9 % Sodium Chloride Flush 3 Ml Syringe) 3 ml IVFLUSH QSHIFT [facility] Last Admin: 08/26/23 08:35 Dose: 3 ml Documented By: SU Labs 08/26/23 06:35 08/26/23 06:35 Labs: Laboratory Results - last 24 hr 08/26/23 06:35 MCV 95.3 MCH 31.2 MCHC 32.8 RDW 12.6 Plt Count 272 MPV 11.3 Absolute Nucleated RBC 0.000 Nucleated RBC % (auto) 0.0 Anion Gap 14 Estim Creat Clear Calc 133.9 Estimated GFR > 60 Fasting Glucose 104 H Calcium 8.4 D Microbiology Microbiology Results: Microbiology 08/25/23 Unknown Gram Stain - Final Arm Left Routine Culture - Preliminary No growth to date. Assessment and Plan (1) Opioid use disorder: Status: Acute (2) Cocaine use disorder: Status: Acute (3) Cardiomyopathy: Status: Acute (4) Encephalopathy: Status: Acute (5) Traumatic brachial plexopathy: Status: Acute (6) Compartment syndrome of forearm: Status: Acute (7) Secondary rhabdomyolysis: Status: Acute (8) Aspiration pneumonia: Status: Acute Plan 33 years old lady who presented with AMS from overdose developed Compartment, rhabdo, aspiration, CMP requring ICU admission and intubation with 4 surgeries to relieve the compartment. Compartment syndrome LUE forearm s/p multiple debridements Narcotics for pain ortho, vascular wound team following, wound vac in place concern for infection vanc, zosyn, id eval acute Peripheral neuropathy 2/2 compartment neurology evaluation appreciated, fpc follow up New onset acute Cardiomyopathy likely from hypoxia Echo on 08/17 showed 20% repeat Echo per ICU showed improvement cardiology rec starting carvedilol and consider KENNETH-I i fable to tolerate Aspiration pneumonia completed course of IV Abx of Vanco and Meropenem cultures negative now Acute hypokalemia given replacement Constipation Laxatives Drug abuse Addiction team following; started on Methadone New onset seizure Neurology eval one time incident, no need to treat and monitor for now DC Keppra and monitor DVT PPx SCDs - due to ongoing interventions reason for continued hospitalization:ongiong surgical interventions Time Spent With Patient Time: Total time managing care of this patient today ____ minutes. Quality Stroke Does the patient have a stroke diagnosis?: No VTE Prior VTE?: No VTE Risk Level:: Medical - moderate - high VTE Device Contraindication: N/A - Device Ordered VTE Drug Contraindication: Treatment Not Indicated
--- NOTE | 2023-08-26 14:23 | MHC.RECOVRN ---
Met with pt in 459 to follow up and provide support. Pt washing up with assistance however, reports pain continues to be 10/10 in arm. Pt reports pain medication helps a little. Denies other questions or concerns at this time. Nita Swan APRN, notified.
[2023-08-26] MEDS: Lactulose 20 GM/30 ML SOLUTION PO (14:39)
[2023-08-26 15:30] LABS: Vancomycin Random 8.1 mcg/mL (15-20)
--- NOTE | 2023-08-26 15:49 | HE.PHANOTE ---
RE VANCO DOSING RENAL FUNCTION STABLE BUT VANCO RANDOM CAME IN LOW AT 8.1 AFTER PT WAS DISCONTINUED OFF OF VANCO ON 08/24 THEN RESTARTED ON 08/25 WITH NEW LOAD OF 1500 MG GIVEN 08/25. 2 DOSES 750 MG GIVEN BUT INSIGHT BELIEVES SHE WON'T ACHIEVE OVER 13 FOR A TROUGH AND ONLY 422 FOR AUC ON CURRENT DOSING REGIMEN. CHANGE TO 1000 MG Q8 TO ACHIEVE 17.2 TROUGH AND AUC 561. WILL RECHECK LEVEL 08/27 @1500 AND SCR DAILY TO ENSURE SAFETY AND EFFICACY.
[2023-08-26] MEDS: vancomycin HCL 1,000 MG in 0.9 % Sodium Chloride 250 ML 270 MG IV (16:56)
[2023-08-27] VITALS (7 sets, daily range): BP systolic 114–125; BP diastolic 63–89; PULSE 86–106; RESP 16–20; TEMP 36.7–37.2; O2SAT 93–97
[2023-08-27] MEDS: HYDROmorphone HCl 2 MG TABLET 3 MG PO ×7 (01:18→21:29)
[2023-08-27] MEDS: vancomycin HCL 1,000 MG in 0.9 % Sodium Chloride 250 ML 270 MG IV ×2 (01:25→08:55)
[2023-08-27] MEDS: Piperacillin Sodium/Tazobactam 3.375 GM in 0.9 % Sodium Chloride 50 ML IV ×4 (04:16→23:55)
[2023-08-27] MEDS: Lactated Ringers 1,000 ML 50 ML IVCONT (06:10)
[2023-08-27] MEDS: HYDROmorphone HCl 2 MG/ML VIAL 3 MG IVPUSH ×5 (06:10→23:49)
[2023-08-27 06:34] LABS: Anion Gap 14 (12-20); Blood Urea Nitrogen 5 mg/dL (9-16); Calcium 8.4 mg/dL (8.4-10.2); Carbon Dioxide 25 mmol/L (22-29); Chloride 103 mmol/L (96-108); Creatinine Clr Calc Pharmacy 129.8; Estimated Glomerular Filt Rate > 60; Glucose Fasting 105 mg/dL (60-99); Potassium 3.9 mmol/L (3.3-5.1); Sodium 138 mmol/L (135-145)
[2023-08-27 06:48] LABS: Hematocrit 24.5 % (37.0-47.0); Hemoglobin 8.2 g/dl (12.0-16.0); Mean Corpuscular HGB Conc 33.5 g/dl (31.0-35.0); Mean Corpuscular Hemoglobin 32.2 pg (27.0-33.0); Mean Corpuscular Volume 96.1 fL (80.0-98.0); Mean Platelet Volume 11.5 fL (9.4-12.3); Platelet Count 306 X10*3/uL (160-400); Red Blood Count 2.55 X10*6/uL (4.20-5.50); Red Cell Distribution Width 12.4 % (11.0-16.0); White Blood Count 10.5 X10*3/uL (4.8-10.8)
[2023-08-27] MEDS: carvediloL 3.125 MG TABLET PO ×2 (08:43→21:29)
[2023-08-27] MEDS: Morphine Sulfate ER 15 MG TABLET.ER PO ×3 (08:44→23:54)
[2023-08-27] MEDS: Docusate Sodium 100 MG CAPSULE PO ×2 (08:44→21:29)
[2023-08-27] MEDS: Gabapentin 100 MG CAPSULE 200 MG PO ×2 (08:44→21:28)
[2023-08-27] MEDS: 0.9 % Sodium Chloride Flush 3 ML SYRINGE IVFLUSH ×3 (08:45→19:37)
[2023-08-27] MEDS: Hydrocortisone 1 % Cream 28.35 GM TUBE 1 APPL TOPICAL (09:52)
--- NOTE | 2023-08-27 11:25 | HO.PM.IMPN ---
Subjective Subjective Date of Service: 08/27/23 Interval History: no changes Physical Exam Vital Signs: Vital Signs: Last Vital Signs Temp 98.9 F 08/27/23 08:00 Pulse 106 H 08/27/23 08:00 Resp 18 08/27/23 08:00 BP 116/67 08/27/23 08:00 Pulse Ox 94 08/27/23 08:00 O2 Del Method Room Air 08/27/23 08:00 O2 Flow Rate 3 08/25/23 16:54 FiO2 35 08/19/23 07:58 BMI result Body Mass Index 29.3 Const: General: cooperative, well developed, alert and awake Orientation/consciousness: oriented to person, oriented to place and oriented to time Neuro: Other: Left upper extremity 0/5, wound VAC in place. Swelling noted on left upper extremity. Numbness on right hand and fingers. Left lower extremity at least 4+/5 on left hip flexion and knee extension with encouragement because of complaints of pain. 2/5 on left dorsiflexion and EHL. Numb and sensitive to touch on left dorsal foot. Right upper lower extremities 5/5. Normal sensation to touch on RUE and RLE. Reflexes are intact in both lower extremities, symmetric. No excessive tone. No spasticity. Hyporeflexia on left upper extremity. Intact reflexes in right upper extremity. Negative Shawn sign. General: oriented to person, oriented to place, oriented to time and Unable to assess gait Cranial nerves: Yes CN's II-XII intact bilaterally Gait exam (Neuro): Unable to assess gait Objective Data Active Medications Carvedilol (Carvedilol 3.125 Mg Tablet) 3.125 mg PO BID [facility]; Protocol Last Admin: 08/27/23 08:43 Dose: 3.125 mg Documented By: SU Docusate Sodium (Docusate Sodium 100 Mg Capsule) 100 mg PO BID [facility] Last Admin: 08/27/23 08:44 Dose: 100 mg Documented By: SU Fentanyl (Fentanyl Citrate/Pf 100 Mcg/2 Ml Vial) 50 mcg IVPUSH Q5M PRN; Protocol PRN Reason: Pain, Severe (Pain Scale 7-10) Gabapentin (Gabapentin 100 Mg Capsule) 200 mg PO BID [facility] Last Admin: 08/27/23 08:44 Dose: 200 mg Documented By: SU Hydrocortisone (Hydrocortisone 1 % Cream 28.35 Gm Tube) 1 appl TOPICAL DAILY [facility]; Protocol Last Admin: 08/27/23 09:52 Dose: 1 appl Documented By: SU Hydromorphone HCl (Hydromorphone Hcl 2 Mg Tablet) 3 mg PO Q3H [facility] Last Admin: 08/27/23 09:43 Dose: 3 mg Documented By: SU Hydromorphone HCl (Hydromorphone Hcl 2 Mg/Ml Vial) 3 mg IVPUSH Q3H PRN; Protocol PRN Reason: severe pain Last Admin: 08/27/23 09:43 Dose: 3 mg Documented By: SU Hydromorphone HCl (Hydromorphone Hcl 0.5 Mg/0.5 Ml Syringe) 0.5 mg IVPUSH Q5M PRN; Protocol PRN Reason: Pain, Severe (Pain Scale 7-10) Lactated Ringer's (Lr) 1,000 mls @ 50 mls/hr IVCONT .Q20H [facility] Last Admin: 08/27/23 06:10 Dose: 50 mls/hr Documented By: NIK Piperacillin Sod/Tazobactam (Sod 3.375 gm/ Sodium Chloride) 50 mls @ 100 mls/hr IV Q6H [facility] Last Infusion: 08/27/23 11:23 Dose: Infused Documented By: SU Vancomycin HCl 1,000 mg/ (Sodium Chloride) 270 mls @ 270 mls/hr IV Q8H [facility] Last Infusion: 08/27/23 09:58 Dose: Infused Documented By: SU Lactulose (Lactulose 20 Gm/30 Ml Solution) 20 gm PO TID [facility] Last Admin: 08/27/23 08:46 Dose: Not Given Documented By: SU Non-Admin Reason: Patient Refused Morphine Sulfate (Morphine Sulfate Er 15 Mg Tablet.Er) 15 mg PO Q8H [facility] Last Admin: 08/27/23 08:44 Dose: 15 mg Documented By: SU Oxycodone HCl (Oxycodone Hcl Immed Release 5 Mg Tablet) 10 mg PO ONCE PRN PRN Reason: Pain, Severe (Pain Scale 7-10) Pharmacy Consult (Consult Rx Vancomycin Dosing) 1 each MISCELLANE DAILY PRN PRN Reason: Consult order Sodium Chloride (0.9 % Sodium Chloride Flush 3 Ml Syringe) 3 ml IVFLUSH QSHIFT [facility] Last Admin: 08/27/23 08:45 Dose: 3 ml Documented By: SU Labs 08/27/23 06:07 08/27/23 06:07 Labs: Laboratory Results - last 24 hr 08/26/23 08/27/23 15:01 06:07 MCV 96.1 MCH 32.2 MCHC 33.5 RDW 12.4 Plt Count 306 MPV 11.5 Absolute Nucleated RBC 0.000 Nucleated RBC % (auto) 0.0 Anion Gap 14 Estim Creat Clear Calc 129.8 Estimated GFR > 60 Fasting Glucose 105 H Calcium 8.4 Random Vancomycin 8.1 L Microbiology Microbiology Results: Microbiology 08/25/23 Unknown Gram Stain - Final Arm Left Routine Culture - Final No growth after 2 days Assessment and Plan (1) Opioid use disorder: Status: Acute (2) Cocaine use disorder: Status: Acute (3) Cardiomyopathy: Status: Acute (4) Encephalopathy: Status: Acute (5) Traumatic brachial plexopathy: Status: Acute (6) Compartment syndrome of forearm: Status: Acute (7) Secondary rhabdomyolysis: Status: Acute (8) Aspiration pneumonia: Status: Acute Plan 33 years old lady who presented with AMS from overdose developed Compartment, rhabdo, aspiration, CMP requring ICU admission and intubation with 4 surgeries to relieve the compartment. Compartment syndrome LUE forearm s/p multiple debridements Narcotics for pain ortho, vascular wound team following, wound vac in place concern for infection vanc, zosyn, id eval plan for return to or tomorrow acute Peripheral neuropathy 2/2 compartment neurology evaluation appreciated, [facility] New onset acute Cardiomyopathy likely from hypoxia Echo on 08/17 showed 20% repeat Echo per ICU showed improvement cardiology rec starting carvedilol and consider KENNETH-I i fable to tolerate Aspiration pneumonia completed course of IV Abx of Vanco and Meropenem cultures negative now Acute hypokalemia given replacement Constipation Laxatives Drug abuse Addiction team following; started on Methadone New onset seizure Neurology eval one time incident, no need to treat and monitor for now DC Keppra and monitor DVT PPx SCDs - due to ongoing interventions reason for continued hospitalization:ongiong surgical interventions Time Spent With Patient Time: Total time managing care of this patient today ____ minutes. Quality Stroke Does the patient have a stroke diagnosis?: No VTE Prior VTE?: No VTE Risk Level:: Medical - moderate - high VTE Device Contraindication: N/A - Device Ordered VTE Drug Contraindication: Treatment Not Indicated
[2023-08-27 15:41] LABS: Vancomycin Random 19.2 mcg/mL (15-20)
--- NOTE | 2023-08-27 15:56 | HE.PHANOTE ---
RE VANCO DOSING AFTER DOSE CHANGE YESTERDAY HER TROUGH CAME IN THERAPEUTIC 19.2 BUT EXPECT TO SEE CONTINUED INCREASE IN THIS LEVEL PT IS NOT YET AT STEADY STATE. DUE TO THAT THE DOSE WAS REDUCED TO 1250 Q12H AND WILL RECHECK TROUGH 08/28 @1400.
[2023-08-27] MEDS: vancomycin HCL 1,250 MG in 0.9 % Sodium Chloride 250 ML 166.67 MG IV (16:39)
--- NOTE | 2023-08-27 18:46 | PM.PNORT ---
Subjective Subjective Date of Service: 08/27/23 Principal diagnosis: Extubated. Responsive. C/o left hand numbness. Interval history: dorsal hand sensation improving but still insensate volarly and brachial plexopathy persistent WBC wnl and on broad spectrum antibiotics Physical Exam Vital Signs: Vital Signs: Last Vital Signs Temp 98.8 F 08/27/23 16:00 Pulse 96 08/27/23 16:00 Resp 16 08/27/23 16:00 BP 125/74 08/27/23 16:00 Pulse Ox 93 08/27/23 16:00 O2 Del Method Room Air 08/27/23 16:00 O2 Flow Rate 3 08/25/23 16:54 FiO2 35 08/19/23 07:58 BMI result Body Mass Index 29.3 Extrem: Other: medial distal upper arm fullness and mild erythema WOund vacuum device holding suction hand warm improved sensation over dorsum of hand but no motion Procedures Date of Service Date of Service: 08/27/23 Progress Note: A&P Assessment and plan (1) Traumatic brachial plexopathy: Status: Acute Assessment and Plan: Waiting for improvement but nothing so far. likely to resolve over time (2) Compartment syndrome of forearm: Status: Acute Assessment and Plan: Necrotic muscle removed at last surgery Wound dressing intact and moderate nl SS drainage in cannister OR tomorrow for irrigation/debridement dressing change Time Spent With Patient Time: Total time managing care of this patient today ____ minutes. Quality Stroke Does the patient have a stroke diagnosis?: No VTE Prior VTE?: No VTE Risk Level:: Medical - moderate - high VTE Device Contraindication: N/A - Device Ordered VTE Drug Contraindication: Treatment Not Indicated
[2023-08-28] VITALS (21 sets, daily range): BP systolic 101–133; BP diastolic 51–85; PULSE 82–101; RESP 15–20; TEMP 36.5–37.7; O2SAT 93–99
[2023-08-28] MEDS: HYDROmorphone HCl 2 MG/ML VIAL 3 MG IVPUSH ×6 (02:53→22:24)
[2023-08-28] MEDS: Piperacillin Sodium/Tazobactam 3.375 GM in 0.9 % Sodium Chloride 50 ML IV ×3 (04:07→22:36)
[2023-08-28] MEDS: vancomycin HCL 1,250 MG in 0.9 % Sodium Chloride 250 ML 166.67 MG IV (04:08)
[2023-08-28] MEDS: Morphine Sulfate ER 15 MG TABLET.ER PO ×2 (07:48→22:24)
[2023-08-28] MEDS: 0.9 % Sodium Chloride Flush 3 ML SYRINGE IVFLUSH ×2 (07:49→19:25)
--- NOTE | 2023-08-28 08:02 | HO.VASCPN ---
Subjective Subjective Date of Service: 08/28/23 Patient reports: no new complaints and still having pain Interval history: Complex 33-year-old female with a history of polysubstance abuse presents for evaluation regarding her left upper extremity. She presented to the hospital with a significantly swollen upper extremity and was intubated and sedated at that time. She subsequently underwent compartment release by Orthopedic surgery. There is concern about arterial flow. At the current time she is on the floor has been stabilized. Has been taken to the OR by Orthopedics for multiple debridements in appears to be doing relatively well. the main concern here is her left upper extremity. It is fairly insensate. She now presents for follow-up evaluation. Physical Exam Vital Signs: Vital Signs: Last Vital Signs Temp 98.6 F 08/28/23 03:35 Pulse 89 08/28/23 03:35 Resp 18 08/28/23 03:35 BP 106/51 L 08/28/23 03:35 Pulse Ox 98 08/28/23 03:35 O2 Del Method Room Air 08/28/23 03:35 O2 Flow Rate 3 08/25/23 16:54 FiO2 35 08/19/23 07:58 BMI result Body Mass Index 29.3 Const: General: cooperative, healthy appearing and comfortable Orientation/consciousness: oriented to person, oriented to place and oriented to time HEENT: Head: Yes normal to inspection Neck: Neck: Yes normal visual inspection Carotids: no bruits Chest: Chest palpation & inspection: normal inspection of the chest Resp: Effort & Inspection: normal respiratory effort and able to speak in complete sentences Auscultation: clear to auscultation bilaterally, no crackles, no rales, no rhonchi and no wheezes Cardio: Rate: regular rate Rhythm: regular rhythm Heart sounds: S1 normal heart sound present and S2 normal heart sound present Bruits: no carotid bruits Peripheral pulses: Peripheral pulses 2+ throughout GI: Inspection: Yes normal to inspection Skin: Wounds: no wounds Hair: normal Neuro: General: oriented to person, oriented to place and oriented to time Cranial nerves: Yes CN's II-XII intact bilaterally and Yes Normal hearing present Cognition (Neuro): normal cognition Motor exam (neuro): 5/5 motor strength present throughout Extrem: Other: Left upper extremity palpable radial and ulnar pulses. Arm is insensate lacking motor and sensation until the mid forearm. Wound VAC intact General: No clubbing, No cyanosis and Yes edema Psych: Appearance: grossly normal Mental Status: mental status grossly normal Speech and movement: Normal speech and movement present Progress Note: A&P Assessment and plan (1) Compartment syndrome of forearm: Status: Acute Assessment and Plan: From a vascular spur SPECT of the left upper extremity is well perfused. The concern here is that the arm is insensate from mid forearm down. Does not appear to be functionally viable. Patient may require form amputation. This was related to the patient. She is scheduled for orthopedic debridement this morning of that upper extremity. Although a difficult situation I do believe that the left upper extremity amputation may be the best course of action for her. Case was discussed this we can with Orthopedic surgery. Thank you for allowing us to assist in her care. If there are any questions or concerns please do not hesitate to contact us. Time Spent With Patient Time: Total time managing care of this patient today ____ minutes. Procedures Date of Service Date of Service: 08/28/23 Quality Stroke Does the patient have a stroke diagnosis?: No VTE Prior VTE?: No VTE Risk Level:: Medical - moderate - high VTE Device Contraindication: N/A - Device Ordered VTE Drug Contraindication: Treatment Not Indicated
[2023-08-28] MEDS: Docusate Sodium 100 MG CAPSULE PO ×2 (08:20→21:27)
[2023-08-28] MEDS: Gabapentin 100 MG CAPSULE 200 MG PO ×2 (08:20→21:27)
[2023-08-28] MEDS: carvediloL 3.125 MG TABLET PO ×2 (08:20→21:27)
[2023-08-28] MEDS: Lactulose 20 GM/30 ML SOLUTION PO (08:20)
[2023-08-28] MEDS: Hydrocortisone 1 % Cream 28.35 GM TUBE 1 APPL TOPICAL (08:25)
[2023-08-28 08:53] LABS: Estimated Glomerular Filt Rate > 60
--- NOTE | 2023-08-28 09:29 | HO.PM.IMPN ---
Subjective Subjective Date of Service: 08/28/23 Interval History: no changes ENT Ears, Nose, Mouth, and Throat: Reports Normal hearing present Neurologic Neurologic: Reports Normal hearing present Physical Exam Vital Signs: Vital Signs: Last Vital Signs Temp 98.5 F 08/28/23 08:00 Pulse 91 08/28/23 08:49 Resp 18 08/28/23 08:00 BP 110/59 L 08/28/23 08:49 Pulse Ox 95 08/28/23 08:49 O2 Del Method Room Air 08/28/23 08:00 O2 Flow Rate 3 08/25/23 16:54 FiO2 35 08/19/23 07:58 BMI result Body Mass Index 29.3 Const: General: cooperative, healthy appearing and comfortable Orientation/consciousness: oriented to person, oriented to place and oriented to time HEENT: Head: Yes normal to inspection Neck: Neck: Yes normal visual inspection Carotids: no bruits Chest: Chest palpation & inspection: normal inspection of the chest Resp: Effort & Inspection: normal respiratory effort and able to speak in complete sentences Auscultation: clear to auscultation bilaterally, no crackles, no rales, no rhonchi and no wheezes Cardio: Rate: regular rate Rhythm: regular rhythm Heart sounds: S1 normal heart sound present and S2 normal heart sound present Bruits: no carotid bruits Peripheral pulses: Peripheral pulses 2+ throughout GI: Inspection: Yes normal to inspection Skin: Wounds: no wounds Hair: normal Neuro: General: oriented to person, oriented to place and oriented to time Cranial nerves: Yes CN's II-XII intact bilaterally and Yes Normal hearing present Cognition (Neuro): normal cognition Motor exam (neuro): 5/5 motor strength present throughout Extrem: Other: Left upper extremity palpable radial and ulnar pulses. Arm is insensate lacking motor and sensation until the mid forearm. Wound VAC intact General: No clubbing, No cyanosis and Yes edema Psych: Appearance: grossly normal Mental Status: mental status grossly normal Speech and movement: Normal speech and movement present Objective Data Active Medications Carvedilol (Carvedilol 3.125 Mg Tablet) 3.125 mg PO BID [facility]; Protocol Last Admin: 08/28/23 08:20 Dose: 3.125 mg Documented By: JEAN Docusate Sodium (Docusate Sodium 100 Mg Capsule) 100 mg PO BID [facility] Last Admin: 08/28/23 08:20 Dose: 100 mg Documented By: JEAN Fentanyl (Fentanyl Citrate/Pf 100 Mcg/2 Ml Vial) 50 mcg IVPUSH Q5M PRN; Protocol PRN Reason: Pain, Severe (Pain Scale 7-10) Gabapentin (Gabapentin 100 Mg Capsule) 200 mg PO BID [facility] Last Admin: 08/28/23 08:20 Dose: 200 mg Documented By: JEAN Hydrocortisone (Hydrocortisone 1 % Cream 28.35 Gm Tube) 1 appl TOPICAL DAILY [facility]; Protocol Last Admin: 08/28/23 08:25 Dose: 1 appl Documented By: JEAN Hydromorphone HCl (Hydromorphone Hcl 2 Mg Tablet) 3 mg PO Q3H [facility] Last Admin: 08/28/23 06:33 Dose: Not Given Documented By: TARAH Non-Admin Reason: NPO Hydromorphone HCl (Hydromorphone Hcl 2 Mg/Ml Vial) 3 mg IVPUSH Q3H PRN; Protocol PRN Reason: severe pain Last Admin: 08/28/23 05:55 Dose: 3 mg Documented By: TARAH Hydromorphone HCl (Hydromorphone Hcl 0.5 Mg/0.5 Ml Syringe) 0.5 mg IVPUSH Q5M PRN; Protocol PRN Reason: Pain, Severe (Pain Scale 7-10) Piperacillin Sod/Tazobactam (Sod 3.375 gm/ Sodium Chloride) 50 mls @ 100 mls/hr IV Q6H [facility] Last Infusion: 08/28/23 04:48 Dose: Infused Documented By: TARAH Vancomycin HCl 1,250 mg/ (Sodium Chloride) 250 mls @ 166.667 mls/hr IV Q12H [facility] Last Infusion: 08/28/23 06:08 Dose: Infused Documented By: TARAH Lactulose (Lactulose 20 Gm/30 Ml Solution) 20 gm PO TID [facility] Last Admin: 08/28/23 08:20 Dose: 20 gm Documented By: JEAN Morphine Sulfate (Morphine Sulfate Er 15 Mg Tablet.Er) 15 mg PO Q8H [facility] Last Admin: 08/28/23 07:48 Dose: 15 mg Documented By: JEAN Oxycodone HCl (Oxycodone Hcl Immed Release 5 Mg Tablet) 10 mg PO ONCE PRN PRN Reason: Pain, Severe (Pain Scale 7-10) Pharmacy Consult (Consult Rx Vancomycin Dosing) 1 each MISCELLANE DAILY PRN PRN Reason: Consult order Sodium Chloride (0.9 % Sodium Chloride Flush 3 Ml Syringe) 3 ml IVFLUSH QSHIFT [facility] Last Admin: 08/28/23 07:49 Dose: 3 ml Documented By: JEAN Labs 08/27/23 06:07 08/28/23 07:25 Labs: Laboratory Results - last 24 hr 08/27/23 08/28/23 15:05 07:25 Hold Purple Top SEE NOTE Estim Creat Clear Calc 119.0 Estimated GFR > 60 Random Vancomycin 19.2 Microbiology Microbiology Results: Microbiology 08/25/23 Unknown Gram Stain - Final Arm Left Routine Culture - Final No growth after 2 days Assessment and Plan (1) Opioid use disorder: Status: Acute (2) Cocaine use disorder: Status: Acute (3) Cardiomyopathy: Status: Acute (4) Encephalopathy: Status: Acute (5) Traumatic brachial plexopathy: Status: Acute (6) Compartment syndrome of forearm: Status: Acute (7) Secondary rhabdomyolysis: Status: Acute (8) Aspiration pneumonia: Status: Acute Plan 33 years old lady who presented with AMS from overdose developed Compartment, rhabdo, aspiration, CMP requring ICU admission and intubation with 4 surgeries to relieve the compartment. 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 New onset acute Cardiomyopathy likely from hypoxia Echo on 08/17 showed 20% repeat Echo per ICU showed improvement cardiology rec starting carvedilol and consider KENNETH-I i fable to tolerate Aspiration pneumonia completed course of IV Abx of Vanco and Meropenem cultures negative now Acute hypokalemia given replacement Constipation Laxatives Drug abuse Addiction team following; started on Methadone New onset seizure Neurology eval one time incident, no need to treat and monitor for now DC Keppra and monitor DVT PPx SCDs - due to ongoing interventions reason for continued hospitalization:ongiong surgical interventions Time Spent With Patient Time: Total time managing care of this patient today ____ minutes. Quality Stroke Does the patient have a stroke diagnosis?: No VTE Prior VTE?: No VTE Risk Level:: Medical - moderate - high VTE Device Contraindication: N/A - Device Ordered VTE Drug Contraindication: Treatment Not Indicated
--- NOTE | 2023-08-28 10:44 | MHC.CM.PN ---
EMR reviewed. Per MD rounds patient is not medically cleared for DC and is back to OR today. CM will continue to follow.
[2023-08-28] MEDS: HYDROmorphone HCl 2 MG TABLET 3 MG PO ×3 (12:36→21:27)
--- NOTE | 2023-08-28 15:02 | PC.NURSE ---
Documentation on triple lumen in [facility] completed after dressing change completed in [facility]. No infiltration noted. All lumens flush with ease. But blood return was not found through any of the lumens. Skin to area wnl. Dressing from floor was peeling up and needed changing. No blood return on any of the lumen. Roz Mayberry RN - patient's floor nurse updated regarding this.
--- NOTE | 2023-08-28 15:33 | PC.NURSE ---
Patient temperature is now 97.9 Report given to Janine Wu RN. Dr. Crowder and Dr. Buck updated that patient T&S is outdated - do not believe that a new one will be required for this case, Janine Wu aware to share the outdated T&S information with the designated anesthesiologist when assigned.
--- NOTE | 2023-08-28 16:37 | P.CNID_ITS ---
History of Present Illness Data of Consult Service Date: 08/28/23 Requesting physician: Emeka Isbell Primary Care Provider: Vivian Skinner MD HPI Reason for consult: left arm infection She was found altered and seizing after drug overdose. She has rhabdomyolysis and tissue damage to left arm. She is going to OR for arm debridement and has wound vac. Review of Systems 2 Review of Systems: Yes all other systems are reviewed and are negative PMFSH Past Medical History Medical History Substance abuse Family History Family history: reviewed and not pertinent Social History Social History Household Members: Family and Children Household Members Other:: Parents, siblings, son Housing: House Do you presently have visiting nurse or other home services: No Unable to assess alcohol history related to: Unable to respond Alcohol intake: current Alcohol intake frequency: 0-2 drinks per day Patient Tobacco Use Status: Current everyday Tobacco user Tobacco use type: Cigarette Use of substances other than those prescribed or required for medical reasons: Yes Substance Use Type: Heroin Substance Use Frequency: Occasionally Last Used Substance: Weeks (ago) Currently Displaying Signs/Symptoms of Drug Intoxication Withdrawal: No Have you been hit, kicked, punched, or otherwise hurt by someone within the past year? If so, by whom?: No Do you feel safe in your current relationship?: No Current Relationship Is there a partner from a previous relationship who is making you feel unsafe now?: No Are you made to feel afraid or neglected: No Are you DNR?: No Advance Directives: No Advance Directives Information Provided: No Advance Directives on File: No Do you have thoughts of harming others: None Do you have a plan to hurt others: No Plan Recently lost weight without trying: No How much weight loss: Not applicable Eating poorly because of decreased appetite: No Nutrition screen score: 0 Nutrition Risks: No Nutritional Risk Patient : No : No Poor oral hygiene: No Meds Allergies Allergy/AdvReac Type Severity Reaction Status Date / Time No Known Allergies Allergy Verified 04/24/23 13:48 Active Medications: Current Medications Carvedilol (Carvedilol 3.125 Mg Tablet) 3.125 mg PO BID [facility]; Protocol Last Admin: 08/28/23 08:20 Dose: 3.125 mg Docusate Sodium (Docusate Sodium 100 Mg Capsule) 100 mg PO BID [facility] Last Admin: 08/28/23 08:20 Dose: 100 mg Fentanyl (Fentanyl Citrate/Pf 100 Mcg/2 Ml Vial) 50 mcg IVPUSH Q5M PRN; Protocol PRN Reason: Pain, Severe (Pain Scale 7-10) Gabapentin (Gabapentin 100 Mg Capsule) 200 mg PO BID [facility] Last Admin: 08/28/23 08:20 Dose: 200 mg Hydrocortisone (Hydrocortisone 1 % Cream 28.35 Gm Tube) 1 appl TOPICAL DAILY [facility]; Protocol Last Admin: 08/28/23 08:25 Dose: 1 appl Hydromorphone HCl (Hydromorphone Hcl 2 Mg Tablet) 3 mg PO Q3H [facility] Last Admin: 08/28/23 12:36 Dose: 3 mg Hydromorphone HCl (Hydromorphone Hcl 2 Mg/Ml Vial) 3 mg IVPUSH Q3H PRN; Protocol PRN Reason: severe pain Last Admin: 08/28/23 12:35 Dose: 3 mg Hydromorphone HCl (Hydromorphone Hcl 0.5 Mg/0.5 Ml Syringe) 0.5 mg IVPUSH Q5M PRN; Protocol PRN Reason: Pain, Severe (Pain Scale 7-10) Piperacillin Sod/Tazobactam (Sod 3.375 gm/ Sodium Chloride) 50 mls @ 100 mls/hr IV Q6H [facility] Last Infusion: 08/28/23 13:15 Dose: Infused Vancomycin HCl 1,250 mg/ (Sodium Chloride) 250 mls @ 166.667 mls/hr IV Q12H [facility] Last Infusion: 08/28/23 06:08 Dose: Infused Lactulose (Lactulose 20 Gm/30 Ml Solution) 20 gm PO TID [facility] Last Admin: 08/28/23 15:35 Dose: Not Given Morphine Sulfate (Morphine Sulfate Er 15 Mg Tablet.Er) 15 mg PO Q8H [facility] Last Admin: 08/28/23 07:48 Dose: 15 mg Oxycodone HCl (Oxycodone Hcl Immed Release 5 Mg Tablet) 10 mg PO ONCE PRN PRN Reason: Pain, Severe (Pain Scale 7-10) Pharmacy Consult (Consult Rx Vancomycin Dosing) 1 each MISCELLANE DAILY PRN PRN Reason: Consult order Sodium Chloride (0.9 % Sodium Chloride Flush 3 Ml Syringe) 3 ml IVFLUSH QSHIFT [facility] Last Admin: 08/28/23 07:49 Dose: 3 ml Home Medications Medication Instructions Recorded Confirmed Last Taken Type No Known Home Meds 08/16/23 08/16/23 Unknown History Physical Exam 2 Vital Signs: Vital Signs: Last Vital Signs Temp 97.9 F 08/28/23 15:39 Pulse 91 08/28/23 14:23 Resp 18 08/28/23 14:23 BP 116/61 08/28/23 14:23 Pulse Ox 96 08/28/23 14:23 O2 Del Method Room Air 08/28/23 14:23 O2 Flow Rate 3 08/25/23 16:54 FiO2 35 08/19/23 07:58 BMI result Body Mass Index 29.3 Const: General: cooperative HEENT: Head: Yes normal to inspection Face and sinus: Yes normal facial exam Mouth: Normal oral and palatal mucosa present Teeth and gingiva: d entition normal Eyes: General: appearance normal, both eyes and all related structures P upils: Equal, round and reactive pupils present Resp: Effort & Inspection: normal respiratory effort Cardio: Other: 2/6 СЕРГЕЙ Rate: regular rate Rhythm: regular rhythm GI: Palpation (GI): Soft to palpation and nontender : General: Yes no CVA tenderness Back/Spine/Pelvis: Back: no CVA tenderness Skin: General skin exam: no rashes or lesions noted Neuro: General: moves all extremities Cranial nerves: Yes Equal, round and reactive pupils present Extrem: Other: left arm difficulty moving vac Psych: Appearance: grossly normal Results Labs 08/27/23 06:07 08/28/23 07:25 Labs: BMP 08/28/23 07:25 Creatinine 0.72 Microbiology Microbiology Results: Microbiology 08/25/23 Unknown Arm Left Gram Stain - Final 08/25/23 Unknown Arm Left Routine Culture - Final No growth after 2 days 08/16/23 07:47 Blood - Venous Blood Culture - Final No growth after 5 days. 08/16/23 07:22 Blood - Venous Blood Culture - Final No growth after 5 days. 08/17/23 05:25 Arm Gram Stain - Final 08/17/23 05:25 Arm Routine Culture - Final No growth. 08/16/23 08:25 Cerebrospinal Fluid Gram Stain - Final 08/16/23 08:25 Cerebrospinal Fluid CSF Examination - Final 08/16/23 08:25 Cerebrospinal Fluid Fluid Description - Final 08/16/23 08:25 Cerebrospinal Fluid CSF Culture - Final No growth after 3 days. Assessment and Plan (1) Peroneal neuropathy at knee: Qualifiers: Laterality: left Qualified Code(s): G57.32 - Lesion of lateral popliteal nerve, left lower limb Status: Acute (2) Compartment syndrome of forearm: Status: Acute She should continue broad spectrum antibiotics Await cultures Check HIV and Hepatitis C. Duration antibiotics to be determined. (3) Secondary rhabdomyolysis: Status: Acute Time Spent With Patient Time: Total time managing care of this patient today ____ minutes.
--- NOTE | 2023-08-28 16:41 | PM.EVENT ---
Event Note Date of Service: 08/28/23 Event Note: echo with murmur if not done Time Spent With Patient Time: Total time managing care of this patient today ____ minutes.
--- NOTE | 2023-08-28 16:52 | HO.ANESPROP2 ---
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 Aspiration pneumonia on IV antibiotics. 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 (Acute) Pneumonia involving left lung (Acute) Rhabdomyolysis (Acute) Troponin I above reference range (Acute) Acidosis, lactic (Acute) Acute renal failure (Acute) Fever (Acute) Altered mental status (Acute) Substance abuse (Acute) Upper respiratory tract infection (Acute) Flank pain (Acute) Dysuria (Acute) Wheezing (Acute) Respiratory infection (Acute) Cough (Acute) Past Medical History Medical History Substance abuse Family History Family history of problems with anesthesia: No Surgical History History of Problems with Anesthesia: No Social History Social History Household Members: Family and Children Household Members Other:: Parents, siblings, son Housing: House Do you presently have visiting nurse or other home services: No Unable to assess alcohol history related to: Unable to respond Alcohol intake: current Alcohol intake frequency: 0-2 drinks per day Patient Tobacco Use Status: Current everyday Tobacco user Tobacco use type: Cigarette Use of substances other than those prescribed or required for medical reasons: Yes Substance Use Type: Heroin Substance Use Frequency: Occasionally Last Used Substance: Weeks (ago) Currently Displaying Signs/Symptoms of Drug Intoxication Withdrawal: No Have you been hit, kicked, punched, or otherwise hurt by someone within the past year? If so, by whom?: No Do you feel safe in your current relationship?: No Current Relationship Is there a partner from a previous relationship who is making you feel unsafe now?: No Are you made to feel afraid or neglected: No Are you DNR?: No Advance Directives: No Advance Directives Information Provided: No Advance Directives on File: No Do you have thoughts of harming others: None Do you have a plan to hurt others: No Plan Recently lost weight without trying: No How much weight loss: Not applicable Eating poorly because of decreased appetite: No Nutrition screen score: 0 Nutrition Risks: No Nutritional Risk Patient : No : No Poor oral hygiene: No Meds Allergies Allergy/AdvReac Type Severity Reaction Status Date / Time No Known Allergies Allergy Verified 04/24/23 13:48 Active Medications: Current Medications Carvedilol (Carvedilol 3.125 Mg Tablet) 3.125 mg PO BID [facility]; Protocol Last Admin: 08/28/23 08:20 Dose: 3.125 mg Docusate Sodium (Docusate Sodium 100 Mg Capsule) 100 mg PO BID [facility] Last Admin: 08/28/23 08:20 Dose: 100 mg Fentanyl (Fentanyl Citrate/Pf 100 Mcg/2 Ml Vial) 50 mcg IVPUSH Q5M PRN; Protocol PRN Reason: Pain, Severe (Pain Scale 7-10) Gabapentin (Gabapentin 100 Mg Capsule) 200 mg PO BID [facility] Last Admin: 08/28/23 08:20 Dose: 200 mg Hydrocortisone (Hydrocortisone 1 % Cream 28.35 Gm Tube) 1 appl TOPICAL DAILY [facility]; Protocol Last Admin: 08/28/23 08:25 Dose: 1 appl Hydromorphone HCl (Hydromorphone Hcl 2 Mg Tablet) 3 mg PO Q3H [facility] Last Admin: 08/28/23 12:36 Dose: 3 mg Hydromorphone HCl (Hydromorphone Hcl 2 Mg/Ml Vial) 3 mg IVPUSH Q3H PRN; Protocol PRN Reason: severe pain Last Admin: 08/28/23 12:35 Dose: 3 mg Hydromorphone HCl (Hydromorphone Hcl 0.5 Mg/0.5 Ml Syringe) 0.5 mg IVPUSH Q5M PRN; Protocol PRN Reason: Pain, Severe (Pain Scale 7-10) Piperacillin Sod/Tazobactam (Sod 3.375 gm/ Sodium Chloride) 50 mls @ 100 mls/hr IV Q6H [facility] Last Infusion: 08/28/23 13:15 Dose: Infused Vancomycin HCl 1,250 mg/ (Sodium Chloride) 250 mls @ 166.667 mls/hr IV Q12H [facility] Last Infusion: 08/28/23 06:08 Dose: Infused Lactulose (Lactulose 20 Gm/30 Ml Solution) 20 gm PO TID [facility] Last Admin: 08/28/23 15:35 Dose: Not Given Morphine Sulfate (Morphine Sulfate Er 15 Mg Tablet.Er) 15 mg PO Q8H [facility] Last Admin: 08/28/23 07:48 Dose: 15 mg Oxycodone HCl (Oxycodone Hcl Immed Release 5 Mg Tablet) 10 mg PO ONCE PRN PRN Reason: Pain, Severe (Pain Scale 7-10) Pharmacy Consult (Consult Rx Vancomycin Dosing) 1 each MISCELLANE DAILY PRN PRN Reason: Consult order Sodium Chloride (0.9 % Sodium Chloride Flush 3 Ml Syringe) 3 ml IVFLUSH QSHIFT [facility] Last Admin: 08/28/23 07:49 Dose: 3 ml Home Medications Medication Instructions Recorded Confirmed Last Taken Type No Known Home Meds 08/16/23 08/16/23 Unknown History Exam Exam Date and Time: August 28, 2023 165 Height,Weight and Vital Signs: Height 5 ft 6 in Weight 82.3 kg Last Vital Signs Temp 97.9 F 08/28/23 15:39 Pulse 91 08/28/23 14:23 Resp 18 08/28/23 14:23 BP 116/61 08/28/23 14:23 Pulse Ox 96 08/28/23 14:23 O2 Del Method Room Air 08/28/23 14:23 O2 Flow Rate 3 08/25/23 16:54 FiO2 35 08/19/23 07:58 Pertinent Lab Results Pertinent Lab Results: Laboratory Tests 08/16/23 08/16/23 08/16/23 07:04 07:11 08:22 WBC 13.7 H RBC 5.02 D Hgb 16.0 D Hct 48.3 H D MCV 96.2 MCH 31.9 MCHC 33.1 RDW 13.0 Plt Count 373 D MPV 10.7 Immature Gran % (Auto) 1.4 H Neut % (Auto) 76.3 H Lymph % (Auto) 15.0 L Alfalfa % (Auto) 7.1 Eos % (Auto) 0.0 Baso % (Auto) 0.2 Lymph # (Auto) 2.1 Alfalfa # (Auto) 1.0 Eos # (Auto) 0.0 Baso # (Auto) 0.0 Abs Immat Gran (auto) 0.19 H Absolute Neuts (auto) 10.5 H Absolute Nucleated RBC 0.020 H Nucleated RBC % (auto) 0.1 Smear Tech's Comments Hold Purple Top SEE NOTE PT INR APTT Hold Blue Top SEE NOTE O2 Saturation 99.0 ABG pH at Pt Temp 7.37 ABG pCO2 at Pt Temp 23 L ABG pO2 at Pt Temp 199 H ABG HCO3 14 L ABG Base Excess (Actual) -9.1 VBG pH VBG pCO2 VBG pO2 VBG HCO3 VBG O2 Saturation VBG Base Excess Sodium 139 Potassium 5.7 H D Chloride 106 Carbon Dioxide 18 L Anion Gap 21 H BUN 30 H Creatinine 2.13 H Estim Creat Clear Calc 40.0 Estimated GFR 27 POC Glucose 123 H Random Glucose 119 H Fasting Glucose Lactic Acid 4.3 H* Lactic Acid F/U @ 2Hr Lactic Acid F/U @ 4Hr Calcium 9.6 Phosphorus Magnesium Total Bilirubin 0.4 Direct Bilirubin 0.2 AST 344 H ALT 114 H Alkaline Phosphatase 75 Total Creatine Kinase 42134 H Troponin I High Sens 346.8 H* Total Protein 8.2 H Albumin 4.8 Lipase 24 TSH Free T4 Urine Color Urine Appearance Urine pH Ur Specific [place] Urine Protein Urine Glucose (UA) Urine Ketones Urine Blood Urine Nitrite Ur Leukocyte Esterase Urine RBC Urine WBC Ur Squamous Epith Cells Urine Bacteria Hyaline Casts Urine Test CSF Tube Number CSF Volume CSF Appearance CSF Color CSF WBC CSF RBC CSF Lymphocytes CSF Monocytes % CSF Appearance (b) CSF Glucose CSF Total Protein Vancomycin Trough Random Vancomycin Urine Opiates Screen Urine Fentanyl Screen Ur Barbiturates Screen Ur Phencyclidine Scrn Ur Amphetamines Screen U Benzodiazepines Scrn Urine Cocaine Screen U Marijuana (THC) Screen Ethyl Alcohol < 10 Thyroglobulin Antibody Thyroid Peroxidase Ab Respiratory Panel [place] Adenovirus (Rapid PCR) B.pert (TEM-PCR) B.parapertussis DNA PCR C. pneumoniae DNA (PCR) Coronavirus OC43 (PCR) Coronavirus HKU1 (PCR) Coronavirus 229E (PCR) Coronavirus NL63 (PCR) Human Metapneumovir PCR Influenza A (RT-PCR) Influenza B (RT-PCR) M. pneumoniae (PCR) Parainfluenza 1 (PCR) Parainfluenza 2 (PCR) Parainfluenza 3 (PCR) Parainfluenza 4 (PCR) RSV (PCR) Entero/Rhino (PCR) SARS-CoV-2 RNA (RT-PCR) Blood Type Antibody Screen 08/16/23 08/16/23 08/16/23 08:25 08:25 08:25 WBC RBC Hgb Hct MCV MCH MCHC RDW Plt Count MPV Immature Gran % (Auto) Neut % (Auto) Lymph % (Auto) Alfalfa % (Auto) Eos % (Auto) Baso % (Auto) Lymph # (Auto) Alfalfa # (Auto) Eos # (Auto) Baso # (Auto) Abs Immat Gran (auto) Absolute Neuts (auto) Absolute Nucleated RBC Nucleated RBC % (auto) Smear Tech's Comments Hold Purple Top PT INR APTT Hold Blue Top O2 Saturation ABG pH at Pt Temp ABG pCO2 at Pt Temp ABG pO2 at Pt Temp ABG HCO3 ABG Base Excess (Actual) VBG pH VBG pCO2 VBG pO2 VBG HCO3 VBG O2 Saturation VBG Base Excess Sodium Potassium Chloride Carbon Dioxide Anion Gap BUN Creatinine Estim Creat Clear Calc Estimated GFR POC Glucose Random Glucose Fasting Glucose Lactic Acid Lactic Acid F/U @ 2Hr Lactic Acid F/U @ 4Hr Calcium Phosphorus Magnesium Total Bilirubin Direct Bilirubin AST ALT Alkaline Phosphatase Total Creatine Kinase Troponin I High Sens Total Protein Albumin Lipase TSH Free T4 Urine Color Dark Yellow Urine Appearance Cloudy Urine pH 5.5 Ur Specific [place] 1.015 Urine Protein 100 (2+) H Urine Glucose (UA) 100 H Urine Ketones Trace Urine Blood Large (3+) H Urine Nitrite Negative Ur Leukocyte Esterase Trace H Urine RBC >20 H Urine WBC 0-5 Ur Squamous Epith Cells 0-2 Urine Bacteria None Seen Hyaline Casts 0-2 Urine Test CSF Tube Number Cancelled 1 4 CSF Volume CSF Appearance CSF Color CSF WBC CSF RBC CSF Lymphocytes CSF Monocytes % CSF Appearance (b) CSF Glucose CSF Total Protein Vancomycin Trough Random Vancomycin Urine Opiates Screen Urine Fentanyl Screen Ur Barbiturates Screen Ur Phencyclidine Scrn Ur Amphetamines Screen U Benzodiazepines Scrn Urine Cocaine Screen U Marijuana (THC) Screen Ethyl Alcohol Thyroglobulin Antibody Thyroid Peroxidase Ab Respiratory Panel [place] Adenovirus (Rapid PCR) B.pert (TEM-PCR) B.parapertussis DNA PCR C. pneumoniae DNA (PCR) Coronavirus OC43 (PCR) Coronavirus HKU1 (PCR) Coronavirus 229E (PCR) Coronavirus NL63 (PCR) Human Metapneumovir PCR Influenza A (RT-PCR) Influenza B (RT-PCR) M. pneumoniae (PCR) Parainfluenza 1 (PCR) Parainfluenza 2 (PCR) Parainfluenza 3 (PCR) Parainfluenza 4 (PCR) RSV (PCR) Entero/Rhino (PCR) SARS-CoV-2 RNA (RT-PCR) Blood Type Antibody Screen 08/16/23 08/16/23 08/16/23 08:25 08:25 08:25 WBC RBC Hgb Hct MCV MCH MCHC RDW Plt Count MPV Immature Gran % (Auto) Neut % (Auto) Lymph % (Auto) Alfalfa % (Auto) Eos % (Auto) Baso % (Auto) Lymph # (Auto) Alfalfa # (Auto) Eos # (Auto) Baso # (Auto) Abs Immat Gran (auto) Absolute Neuts (auto) Absolute Nucleated RBC Nucleated RBC % (auto) Smear Tech's Comments Hold Purple Top PT INR APTT Hold Blue Top O2 Saturation ABG pH at Pt Temp ABG pCO2 at Pt Temp ABG pO2 at Pt Temp ABG HCO3 ABG Base Excess (Actual) VBG pH VBG pCO2 VBG pO2 VBG HCO3 VBG O2 Saturation VBG Base Excess Sodium Potassium Chloride Carbon Dioxide Anion Gap BUN Creatinine Estim Creat Clear Calc Estimated GFR POC Glucose Random Glucose Fasting Glucose Lactic Acid Lactic Acid F/U @ 2Hr Lactic Acid F/U @ 4Hr Calcium Phosphorus Magnesium Total Bilirubin Direct Bilirubin AST ALT Alkaline Phosphatase Total Creatine Kinase Troponin I High Sens Total Protein Albumin Lipase TSH Free T4 Urine Color Urine Appearance Urine pH Ur Specific [place] Urine Protein Urine Glucose (UA) Urine Ketones Urine Blood Urine Nitrite Ur Leukocyte Esterase Urine RBC Urine WBC Ur Squamous Epith Cells Urine Bacteria Hyaline Casts Urine Test CSF Tube Number 2 CSF Volume 1.0 1.0 CSF Appearance CLEAR CLEAR CSF Color COLORLESS CSF WBC CSF RBC CSF Lymphocytes CSF Monocytes % CSF Appearance (b) CSF Glucose CSF Total Protein Vancomycin Trough Random Vancomycin Urine Opiates Screen Urine Fentanyl Screen Ur Barbiturates Screen Ur Phencyclidine Scrn Ur Amphetamines Screen U Benzodiazepines Scrn Urine Cocaine Screen U Marijuana (THC) Screen Ethyl Alcohol Thyroglobulin Antibody Thyroid Peroxidase Ab Respiratory Panel [place] Adenovirus (Rapid PCR) B.pert (TEM-PCR) B.parapertussis DNA PCR C. pneumoniae DNA (PCR) Coronavirus OC43 (PCR) Coronavirus HKU1 (PCR) Coronavirus 229E (PCR) Coronavirus NL63 (PCR) Human Metapneumovir PCR Influenza A (RT-PCR) Influenza B (RT-PCR) M. pneumoniae (PCR) Parainfluenza 1 (PCR) Parainfluenza 2 (PCR) Parainfluenza 3 (PCR) Parainfluenza 4 (PCR) RSV (PCR) Entero/Rhino (PCR) SARS-CoV-2 RNA (RT-PCR) Blood Type Antibody Screen 08/16/23 08/16/23 08/16/23 08:25 08:25 08:25 WBC RBC Hgb Hct MCV MCH MCHC RDW Plt Count MPV Immature Gran % (Auto) Neut % (Auto) Lymph % (Auto) Alfalfa % (Auto) Eos % (Auto) Baso % (Auto) Lymph # (Auto) Alfalfa # (Auto) Eos # (Auto) Baso # (Auto) Abs Immat Gran (auto) Absolute Neuts (auto) Absolute Nucleated RBC Nucleated RBC % (auto) Smear Tech's Comments Hold Purple Top PT INR APTT Hold Blue Top O2 Saturation ABG pH at Pt Temp ABG pCO2 at Pt Temp ABG pO2 at Pt Temp ABG HCO3 ABG Base Excess (Actual) VBG pH VBG pCO2 VBG pO2 VBG HCO3 VBG O2 Saturation VBG Base Excess Sodium Potassium Chloride Carbon Dioxide Anion Gap BUN Creatinine Estim Creat Clear Calc Estimated GFR POC Glucose Random Glucose Fasting Glucose Lactic Acid Lactic Acid F/U @ 2Hr Lactic Acid F/U @ 4Hr Calcium Phosphorus Magnesium Total Bilirubin Direct Bilirubin AST ALT Alkaline Phosphatase Total Creatine Kinase Troponin I High Sens Total Protein Albumin Lipase TSH Free T4 Urine Color Urine Appearance Urine pH Ur Specific [place] Urine Protein Urine Glucose (UA) Urine Ketones Urine Blood Urine Nitrite Ur Leukocyte Esterase Urine RBC Urine WBC Ur Squamous Epith Cells Urine Bacteria Hyaline Casts Urine Test CSF Tube Number CSF Volume CSF Appearance CSF Color COLORLESS CSF WBC 2 3 CSF RBC 22 14 CSF Lymphocytes 100 CSF Monocytes % CSF Appearance (b) CSF Glucose CSF Total Protein Vancomycin Trough Random Vancomycin Urine Opiates Screen Urine Fentanyl Screen Ur Barbiturates Screen Ur Phencyclidine Scrn Ur Amphetamines Screen U Benzodiazepines Scrn Urine Cocaine Screen U Marijuana (THC) Screen Ethyl Alcohol Thyroglobulin Antibody Thyroid Peroxidase Ab Respiratory Panel [place] Adenovirus (Rapid PCR) B.pert (TEM-PCR) B.parapertussis DNA PCR C. pneumoniae DNA (PCR) Coronavirus OC43 (PCR) Coronavirus HKU1 (PCR) Coronavirus 229E (PCR) Coronavirus NL63 (PCR) Human Metapneumovir PCR Influenza A (RT-PCR) Influenza B (RT-PCR) M. pneumoniae (PCR) Parainfluenza 1 (PCR) Parainfluenza 2 (PCR) Parainfluenza 3 (PCR) Parainfluenza 4 (PCR) RSV (PCR) Entero/Rhino (PCR) SARS-CoV-2 RNA (RT-PCR) Blood Type Antibody Screen 08/16/23 08/16/23 08/16/23 08:25 08:25 08:25 WBC RBC Hgb Hct MCV MCH MCHC RDW Plt Count MPV Immature Gran % (Auto) Neut % (Auto) Lymph % (Auto) Alfalfa % (Auto) Eos % (Auto) Baso % (Auto) Lymph # (Auto) Alfalfa # (Auto) Eos # (Auto) Baso # (Auto) Abs Immat Gran (auto) Absolute Neuts (auto) Absolute Nucleated RBC Nucleated RBC % (auto) Smear Tech's Comments Hold Purple Top PT INR APTT Hold Blue Top O2 Saturation ABG pH at Pt Temp ABG pCO2 at Pt Temp ABG pO2 at Pt Temp ABG HCO3 ABG Base Excess (Actual) VBG pH VBG pCO2 VBG pO2 VBG HCO3 VBG O2 Saturation VBG Base Excess Sodium Potassium Chloride Carbon Dioxide Anion Gap BUN Creatinine Estim Creat Clear Calc Estimated GFR POC Glucose Random Glucose Fasting Glucose Lactic Acid Lactic Acid F/U @ 2Hr Lactic Acid F/U @ 4Hr Calcium Phosphorus Magnesium Total Bilirubin Direct Bilirubin AST ALT Alkaline Phosphatase Total Creatine Kinase Troponin I High Sens Total Protein Albumin Lipase TSH Free T4 Urine Color Urine Appearance Urine pH Ur Specific [place] Urine Protein Urine Glucose (UA) Urine Ketones Urine Blood Urine Nitrite Ur Leukocyte Esterase Urine RBC Urine WBC Ur Squamous Epith Cells Urine Bacteria Hyaline Casts Urine Test CSF Tube Number CSF Volume CSF Appearance CSF Color CSF WBC CSF RBC CSF Lymphocytes 83 CSF Monocytes % 17 CSF Appearance (b) Cancelled Clear, Colorless CSF Glucose Cancelled 96 CSF Total Protein 28.6 Vancomycin Trough Random Vancomycin Urine Opiates Screen POSITIVE H Urine Fentanyl Screen POSITIVE H Ur Barbiturates Screen Not Detected Ur Phencyclidine Scrn Not Detected Ur Amphetamines Screen Not Detected U Benzodiazepines Scrn POSITIVE H Urine Cocaine Screen POSITIVE H U Marijuana (THC) Screen POSITIVE H Ethyl Alcohol Thyroglobulin Antibody Thyroid Peroxidase Ab Respiratory Panel [place] Adenovirus (Rapid PCR) B.pert (TEM-PCR) B.parapertussis DNA PCR C. pneumoniae DNA (PCR) Coronavirus OC43 (PCR) Coronavirus HKU1 (PCR) Coronavirus 229E (PCR) Coronavirus NL63 (PCR) Human Metapneumovir PCR Influenza A (RT-PCR) Influenza B (RT-PCR) M. pneumoniae (PCR) Parainfluenza 1 (PCR) Parainfluenza 2 (PCR) Parainfluenza 3 (PCR) Parainfluenza 4 (PCR) RSV (PCR) Entero/Rhino (PCR) SARS-CoV-2 RNA (RT-PCR) Blood Type Antibody Screen 08/16/23 08/16/23 08/16/23 09:45 09:46 09:50 WBC RBC Hgb Hct MCV MCH MCHC RDW Plt Count MPV Immature Gran % (Auto) Neut % (Auto) Lymph % (Auto) Alfalfa % (Auto) Eos % (Auto) Baso % (Auto) Lymph # (Auto) Alfalfa # (Auto) Eos # (Auto) Baso # (Auto) Abs Immat Gran (auto) Absolute Neuts (auto) Absolute Nucleated RBC Nucleated RBC % (auto) Smear Tech's Comments Hold Purple Top PT INR APTT Hold Blue Top O2 Saturation ABG pH at Pt Temp ABG pCO2 at Pt Temp ABG pO2 at Pt Temp ABG HCO3 ABG Base Excess (Actual) VBG pH VBG pCO2 VBG pO2 VBG HCO3 VBG O2 Saturation VBG Base Excess Sodium Potassium Chloride Carbon Dioxide Anion Gap BUN Creatinine Estim Creat Clear Calc Estimated GFR POC Glucose Random Glucose Fasting Glucose Lactic Acid Lactic Acid F/U @ 2Hr 2.3 H* Lactic Acid F/U @ 4Hr Calcium Phosphorus Magnesium Total Bilirubin Direct Bilirubin AST ALT Alkaline Phosphatase Total Creatine Kinase Troponin I High Sens Total Protein Albumin Lipase TSH 0.70 Free T4 1.10 Urine Color Urine Appearance Urine pH Ur Specific [place] Urine Protein Urine Glucose (UA) Urine Ketones Urine Blood Urine Nitrite Ur Leukocyte Esterase Urine RBC Urine WBC Ur Squamous Epith Cells Urine Bacteria Hyaline Casts Urine Test CSF Tube Number CSF Volume CSF Appearance CSF Color CSF WBC CSF RBC CSF Lymphocytes CSF Monocytes % CSF Appearance (b) CSF Glucose CSF Total Protein Vancomycin Trough Random Vancomycin Urine Opiates Screen Urine Fentanyl Screen Ur Barbiturates Screen Ur Phencyclidine Scrn Ur Amphetamines Screen U Benzodiazepines Scrn Urine Cocaine Screen U Marijuana (THC) Screen Ethyl Alcohol Thyroglobulin Antibody 160 H Thyroid Peroxidase Ab 26 H Respiratory Panel [place] See Note Adenovirus (Rapid PCR) Not Detected B.pert (TEM-PCR) Not Detected B.parapertussis DNA PCR Not Detected C. pneumoniae DNA (PCR) Not Detected Coronavirus OC43 (PCR) Not Detected Coronavirus HKU1 (PCR) Not Detected Coronavirus 229E (PCR) Not Detected Coronavirus NL63 (PCR) Not Detected Human Metapneumovir PCR Not Detected Influenza A (RT-PCR) Not Detected Influenza B (RT-PCR) Not Detected M. pneumoniae (PCR) Not Detected Parainfluenza 1 (PCR) Not Detected Parainfluenza 2 (PCR) Not Detected Parainfluenza 3 (PCR) Not Detected Parainfluenza 4 (PCR) Not Detected RSV (PCR) Not Detected Entero/Rhino (PCR) Not Detected SARS-CoV-2 RNA (RT-PCR) Not Detected Blood Type Antibody Screen 08/16/23 08/17/23 08/17/23 12:59 04:43 04:47 WBC 15.6 H RBC 4.29 Hgb 13.7 Hct 41.3 MCV 96.3 MCH 31.9 MCHC 33.2 RDW 13.1 Plt Count 266 D MPV 11.5 Immature Gran % (Auto) 0.3 Neut % (Auto) 73.5 H Lymph % (Auto) 15.9 L Alfalfa % (Auto) 10.1 Eos % (Auto) 0.0 Baso % (Auto) 0.2 Lymph # (Auto) 2.5 Alfalfa # (Auto) 1.6 H Eos # (Auto) 0.0 Baso # (Auto) 0.0 Abs Immat Gran (auto) 0.04 H Absolute Neuts (auto) 11.5 H Absolute Nucleated RBC 0.000 Nucleated RBC % (auto) 0.0 Smear Tech's Comments Hold Purple Top PT INR APTT Hold Blue Top O2 Saturation ABG pH at Pt Temp ABG pCO2 at Pt Temp ABG pO2 at Pt Temp ABG HCO3 ABG Base Excess (Actual) VBG pH 7.46 H VBG pCO2 24 VBG pO2 125 VBG HCO3 17 L VBG O2 Saturation 99.0 VBG Base Excess -4.6 Sodium 140 Potassium 4.1 D Chloride 113 H Carbon Dioxide 15 L Anion Gap 16 BUN 16 Creatinine 1.06 Estim Creat Clear Calc 76.1 Estimated GFR 59 POC Glucose Random Glucose 158 H Fasting Glucose Lactic Acid Lactic Acid F/U @ 2Hr Lactic Acid F/U @ 4Hr 3.1 H* Calcium 8.2 L D Phosphorus 3.1 Magnesium 2.4 Total Bilirubin 0.4 Direct Bilirubin AST 397 H ALT 135 H Alkaline Phosphatase 53 Total Creatine Kinase Troponin I High Sens Total Protein 6.1 L Albumin 3.2 L Lipase TSH Free T4 Urine Color Urine Appearance Urine pH Ur Specific [place] Urine Protein Urine Glucose (UA) Urine Ketones Urine Blood Urine Nitrite Ur Leukocyte Esterase Urine RBC Urine WBC Ur Squamous Epith Cells Urine Bacteria Hyaline Casts Urine Test CSF Tube Number CSF Volume CSF Appearance CSF Color CSF WBC CSF RBC CSF Lymphocytes CSF Monocytes % CSF Appearance (b) CSF Glucose CSF Total Protein Vancomycin Trough Random Vancomycin Urine Opiates Screen Urine Fentanyl Screen Ur Barbiturates Screen Ur Phencyclidine Scrn Ur Amphetamines Screen U Benzodiazepines Scrn Urine Cocaine Screen U Marijuana (THC) Screen Ethyl Alcohol Thyroglobulin Antibody Thyroid Peroxidase Ab Respiratory Panel [place] Adenovirus (Rapid PCR) B.pert (TEM-PCR) B.parapertussis DNA PCR C. pneumoniae DNA (PCR) Coronavirus OC43 (PCR) Coronavirus HKU1 (PCR) Coronavirus 229E (PCR) Coronavirus NL63 (PCR) Human Metapneumovir PCR Influenza A (RT-PCR) Influenza B (RT-PCR) M. pneumoniae (PCR) Parainfluenza 1 (PCR) Parainfluenza 2 (PCR) Parainfluenza 3 (PCR) Parainfluenza 4 (PCR) RSV (PCR) Entero/Rhino (PCR) SARS-CoV-2 RNA (RT-PCR) Blood Type Antibody Screen 08/17/23 08/18/23 08/18/23 Unknown 04:28 04:34 WBC 13.7 H RBC 3.88 L Hgb 12.4 Hct 37.9 MCV 97.7 MCH 32.0 MCHC 32.7 RDW 13.2 Plt Count 250 MPV 11.1 Immature Gran % (Auto) 0.4 Neut % (Auto) 58.7 Lymph % (Auto) 32.7 Alfalfa % (Auto) 7.9 Eos % (Auto) 0.1 Baso % (Auto) 0.2 Lymph # (Auto) 4.5 Alfalfa # (Auto) 1.1 Eos # (Auto) 0.0 Baso # (Auto) 0.0 Abs Immat Gran (auto) 0.05 H Absolute Neuts (auto) 8.0 Absolute Nucleated RBC 0.000 Nucleated RBC % (auto) 0.0 Smear Tech's Comments VERIFIED Hold Purple Top PT INR APTT Hold Blue Top O2 Saturation ABG pH at Pt Temp ABG pCO2 at Pt Temp ABG pO2 at Pt Temp ABG HCO3 ABG Base Excess (Actual) VBG pH 7.50 H VBG pCO2 32 VBG pO2 47 VBG HCO3 25 VBG O2 Saturation 80.0 VBG Base Excess 2.8 Sodium 143 Potassium 4.0 Chloride 111 H Carbon Dioxide 20 L Anion Gap 16 BUN 12 Creatinine 0.79 Estim Creat Clear Calc 108.0 Estimated GFR > 60 POC Glucose Random Glucose 99 Fasting Glucose Lactic Acid Lactic Acid F/U @ 2Hr Lactic Acid F/U @ 4Hr Calcium 8.5 Phosphorus 2.8 Magnesium 2.5 Total Bilirubin 0.4 Direct Bilirubin AST 296 H ALT 110 H Alkaline Phosphatase 62 Total Creatine Kinase 36954 H Troponin I High Sens Total Protein 5.5 L Albumin 3.0 L Lipase TSH Free T4 Urine Color Urine Appearance Urine pH Ur Specific [place] Urine Protein Urine Glucose (UA) Urine Ketones Urine Blood Urine Nitrite Ur Leukocyte Esterase Urine RBC Urine WBC Ur Squamous Epith Cells Urine Bacteria Hyaline Casts Urine Test NEGATIVE CSF Tube Number CSF Volume CSF Appearance CSF Color CSF WBC CSF RBC CSF Lymphocytes CSF Monocytes % CSF Appearance (b) CSF Glucose CSF Total Protein Vancomycin Trough 10.1 Random Vancomycin Urine Opiates Screen Urine Fentanyl Screen Ur Barbiturates Screen Ur Phencyclidine Scrn Ur Amphetamines Screen U Benzodiazepines Scrn Urine Cocaine Screen U Marijuana (THC) Screen Ethyl Alcohol Thyroglobulin Antibody Thyroid Peroxidase Ab Respiratory Panel [place] Adenovirus (Rapid PCR) B.pert (TEM-PCR) B.parapertussis DNA PCR C. pneumoniae DNA (PCR) Coronavirus OC43 (PCR) Coronavirus HKU1 (PCR) Coronavirus 229E (PCR) Coronavirus NL63 (PCR) Human Metapneumovir PCR Influenza A (RT-PCR) Influenza B (RT-PCR) M. pneumoniae (PCR) Parainfluenza 1 (PCR) Parainfluenza 2 (PCR) Parainfluenza 3 (PCR) Parainfluenza 4 (PCR) RSV (PCR) Entero/Rhino (PCR) SARS-CoV-2 RNA (RT-PCR) Blood Type Antibody Screen 08/19/23 08/19/23 08/19/23 05:05 05:16 17:53 WBC 13.8 H RBC 3.33 L Hgb 10.7 L Hct 32.6 L MCV 97.9 MCH 32.1 MCHC 32.8 RDW 13.0 Plt Count 225 MPV 11.3 Immature Gran % (Auto) 0.7 H Neut % (Auto) 50.5 Lymph % (Auto) 42.0 H Alfalfa % (Auto) 6.4 Eos % (Auto) 0.1 Baso % (Auto) 0.3 Lymph # (Auto) 5.8 H Alfalfa # (Auto) 0.9 Eos # (Auto) 0.0 Baso # (Auto) 0.0 Abs Immat Gran (auto) 0.09 H Absolute Neuts (auto) 7.0 Absolute Nucleated RBC 0.000 Nucleated RBC % (auto) 0.0 Smear Tech's Comments VERIFIED Hold Purple Top PT INR APTT Hold Blue Top O2 Saturation ABG pH at Pt Temp ABG pCO2 at Pt Temp ABG pO2 at Pt Temp ABG HCO3 ABG Base Excess (Actual) VBG pH 7.58 H VBG pCO2 30 VBG pO2 47 VBG HCO3 28 H VBG O2 Saturation 81.0 VBG Base Excess 7.1 Sodium 143 Potassium 3.8 Chloride 110 H Carbon Dioxide 24 Anion Gap 13 BUN 12 Creatinine 0.71 Estim Creat Clear Calc 121.6 Estimated GFR > 60 POC Glucose Random Glucose 87 Fasting Glucose Lactic Acid Lactic Acid F/U @ 2Hr Lactic Acid F/U @ 4Hr Calcium 8.3 L Phosphorus 1.9 L Magnesium 2.3 Total Bilirubin 0.6 Direct Bilirubin AST 247 H ALT 96 H Alkaline Phosphatase 46 Total Creatine Kinase 22412 H Troponin I High Sens Total Protein 5.3 L Albumin 2.8 L Lipase TSH Free T4 Urine Color Urine Appearance Urine pH Ur Specific [place] Urine Protein Urine Glucose (UA) Urine Ketones Urine Blood Urine Nitrite Ur Leukocyte Esterase Urine RBC Urine WBC Ur Squamous Epith Cells Urine Bacteria Hyaline Casts Urine Test CSF Tube Number CSF Volume CSF Appearance CSF Color CSF WBC CSF RBC CSF Lymphocytes CSF Monocytes % CSF Appearance (b) CSF Glucose CSF Total Protein Vancomycin Trough Random Vancomycin 11.6 L Urine Opiates Screen Urine Fentanyl Screen Ur Barbiturates Screen Ur Phencyclidine Scrn Ur Amphetamines Screen U Benzodiazepines Scrn Urine Cocaine Screen U Marijuana (THC) Screen Ethyl Alcohol Thyroglobulin Antibody Thyroid Peroxidase Ab Respiratory Panel [place] Adenovirus (Rapid PCR) B.pert (TEM-PCR) B.parapertussis DNA PCR C. pneumoniae DNA (PCR) Coronavirus OC43 (PCR) Coronavirus HKU1 (PCR) Coronavirus 229E (PCR) Coronavirus NL63 (PCR) Human Metapneumovir PCR Influenza A (RT-PCR) Influenza B (RT-PCR) M. pneumoniae (PCR) Parainfluenza 1 (PCR) Parainfluenza 2 (PCR) Parainfluenza 3 (PCR) Parainfluenza 4 (PCR) RSV (PCR) Entero/Rhino (PCR) SARS-CoV-2 RNA (RT-PCR) Blood Type Antibody Screen 08/19/23 08/20/23 08/20/23 20:05 05:15 05:18 WBC 10.9 H RBC 3.02 L Hgb 9.6 L Hct 29.1 L MCV 96.4 MCH 31.8 MCHC 33.0 RDW 12.7 Plt Count 195 MPV 11.5 Immature Gran % (Auto) 0.5 H Neut % (Auto) 40.4 L Lymph % (Auto) 50.6 H Alfalfa % (Auto) 7.6 Eos % (Auto) 0.6 Baso % (Auto) 0.3 Lymph # (Auto) 5.5 H Alfalfa # (Auto) 0.8 Eos # (Auto) 0.1 Baso # (Auto) 0.0 Abs Immat Gran (auto) 0.05 H Absolute Neuts (auto) 4.4 Absolute Nucleated RBC 0.000 Nucleated RBC % (auto) 0.0 Smear Tech's Comments VERIFIED Hold Purple Top PT INR APTT Hold Blue Top O2 Saturation ABG pH at Pt Temp ABG pCO2 at Pt Temp ABG pO2 at Pt Temp ABG HCO3 ABG Base Excess (Actual) VBG pH 7.50 H VBG pCO2 36 VBG pO2 54 VBG HCO3 28 H VBG O2 Saturation 84.0 VBG Base Excess 5.4 Sodium 143 144 Potassium 3.3 3.3 Chloride 109 H 110 H Carbon Dioxide 23 23 Anion Gap 14 14 BUN 12 15 Creatinine 0.70 0.68 Estim Creat Clear Calc 123.4 126.1 Estimated GFR > 60 > 60 POC Glucose Random Glucose 102 81 Fasting Glucose Lactic Acid Lactic Acid F/U @ 2Hr Lactic Acid F/U @ 4Hr Calcium 8.4 8.4 Phosphorus 2.9 2.6 L Magnesium 2.3 2.4 Total Bilirubin 1.0 Direct Bilirubin AST 209 H ALT 91 H Alkaline Phosphatase 37 L Total Creatine Kinase 8395 H Troponin I High Sens Total Protein 5.2 L Albumin 3.0 L 3.2 L Lipase TSH Free T4 Urine Color Urine Appearance Urine pH Ur Specific [place] Urine Protein Urine Glucose (UA) Urine Ketones Urine Blood Urine Nitrite Ur Leukocyte Esterase Urine RBC Urine WBC Ur Squamous Epith Cells Urine Bacteria Hyaline Casts Urine Test CSF Tube Number CSF Volume CSF Appearance CSF Color CSF WBC CSF RBC CSF Lymphocytes CSF Monocytes % CSF Appearance (b) CSF Glucose CSF Total Protein Vancomycin Trough Random Vancomycin Urine Opiates Screen Urine Fentanyl Screen Ur Barbiturates Screen Ur Phencyclidine Scrn Ur Amphetamines Screen U Benzodiazepines Scrn Urine Cocaine Screen U Marijuana (THC) Screen Ethyl Alcohol Thyroglobulin Antibody Thyroid Peroxidase Ab Respiratory Panel [place] Adenovirus (Rapid PCR) B.pert (TEM-PCR) B.parapertussis DNA PCR C. pneumoniae DNA (PCR) Coronavirus OC43 (PCR) Coronavirus HKU1 (PCR) Coronavirus 229E (PCR) Coronavirus NL63 (PCR) Human Metapneumovir PCR Influenza A (RT-PCR) Influenza B (RT-PCR) M. pneumoniae (PCR) Parainfluenza 1 (PCR) Parainfluenza 2 (PCR) Parainfluenza 3 (PCR) Parainfluenza 4 (PCR) RSV (PCR) Entero/Rhino (PCR) SARS-CoV-2 RNA (RT-PCR) Blood Type Antibody Screen 08/20/23 08/20/23 08/21/23 07:51 18:01 06:43 WBC 13.1 H RBC 3.18 L Hgb 10.2 L Hct 30.3 L MCV 95.3 MCH 32.1 MCHC 33.7 RDW 12.6 Plt Count 243 MPV 11.6 Immature Gran % (Auto) Neut % (Auto) Lymph % (Auto) Alfalfa % (Auto) Eos % (Auto) Baso % (Auto) Lymph # (Auto) Alfalfa # (Auto) Eos # (Auto) Baso # (Auto) Abs Immat Gran (auto) Absolute Neuts (auto) Absolute Nucleated RBC 0.000 Nucleated RBC % (auto) 0.0 Smear Tech's Comments Hold Purple Top PT 11.4 INR 0.9 APTT 25.7 L Hold Blue Top O2 Saturation ABG pH at Pt Temp ABG pCO2 at Pt Temp ABG pO2 at Pt Temp ABG HCO3 ABG Base Excess (Actual) VBG pH VBG pCO2 VBG pO2 VBG HCO3 VBG O2 Saturation VBG Base Excess Sodium 141 Potassium 3.0 L Chloride 108 Carbon Dioxide 22 Anion Gap 14 BUN 16 Creatinine 0.64 Estim Creat Clear Calc 133.9 Estimated GFR > 60 POC Glucose Random Glucose 94 Fasting Glucose Lactic Acid Lactic Acid F/U @ 2Hr Lactic Acid F/U @ 4Hr Calcium 8.5 Phosphorus Magnesium Total Bilirubin 0.8 Direct Bilirubin 0.3 AST 137 H ALT 84 H Alkaline Phosphatase 41 Total Creatine Kinase 4585 H Troponin I High Sens Total Protein 5.0 L Albumin 2.9 L Lipase TSH Free T4 Urine Color Urine Appearance Urine pH Ur Specific [place] Urine Protein Urine Glucose (UA) Urine Ketones Urine Blood Urine Nitrite Ur Leukocyte Esterase Urine RBC Urine WBC Ur Squamous Epith Cells Urine Bacteria Hyaline Casts Urine Test CSF Tube Number CSF Volume CSF Appearance CSF Color CSF WBC CSF RBC CSF Lymphocytes CSF Monocytes % CSF Appearance (b) CSF Glucose CSF Total Protein Vancomycin Trough Random Vancomycin 18.1 Urine Opiates Screen Urine Fentanyl Screen Ur Barbiturates Screen Ur Phencyclidine Scrn Ur Amphetamines Screen U Benzodiazepines Scrn Urine Cocaine Screen U Marijuana (THC) Screen Ethyl Alcohol Thyroglobulin Antibody Thyroid Peroxidase Ab Respiratory Panel [place] Adenovirus (Rapid PCR) B.pert (TEM-PCR) B.parapertussis DNA PCR C. pneumoniae DNA (PCR) Coronavirus OC43 (PCR) Coronavirus HKU1 (PCR) Coronavirus 229E (PCR) Coronavirus NL63 (PCR) Human Metapneumovir PCR Influenza A (RT-PCR) Influenza B (RT-PCR) M. pneumoniae (PCR) Parainfluenza 1 (PCR) Parainfluenza 2 (PCR) Parainfluenza 3 (PCR) Parainfluenza 4 (PCR) RSV (PCR) Entero/Rhino (PCR) SARS-CoV-2 RNA (RT-PCR) Blood Type Antibody Screen 08/21/23 08/22/23 08/22/23 10:35 07:08 10:04 WBC 13.0 H RBC 3.32 L Hgb 10.5 L Hct 30.9 L MCV 93.1 MCH 31.6 MCHC 34.0 RDW 12.6 Plt Count 269 MPV 11.2 Immature Gran % (Auto) Neut % (Auto) Lymph % (Auto) Alfalfa % (Auto) Eos % (Auto) Baso % (Auto) Lymph # (Auto) Alfalfa # (Auto) Eos # (Auto) Baso # (Auto) Abs Immat Gran (auto) Absolute Neuts (auto) Absolute Nucleated RBC 0.000 Nucleated RBC % (auto) 0.0 Smear Tech's Comments Hold Purple Top PT INR APTT Hold Blue Top O2 Saturation ABG pH at Pt Temp ABG pCO2 at Pt Temp ABG pO2 at Pt Temp ABG HCO3 ABG Base Excess (Actual) VBG pH VBG pCO2 VBG pO2 VBG HCO3 VBG O2 Saturation VBG Base Excess Sodium 142 Potassium 2.7 L Chloride 107 Carbon Dioxide 25 Anion Gap 13 BUN 11 Creatinine 0.54 Estim Creat Clear Calc 158.7 Estimated GFR > 60 POC Glucose Random Glucose 88 Fasting Glucose Lactic Acid Lactic Acid F/U @ 2Hr Lactic Acid F/U @ 4Hr Calcium 7.7 L D Phosphorus Magnesium Total Bilirubin Direct Bilirubin AST ALT Alkaline Phosphatase Total Creatine Kinase 2349 H Troponin I High Sens Total Protein Albumin Lipase TSH Free T4 Urine Color Urine Appearance Urine pH Ur Specific [place] Urine Protein Urine Glucose (UA) Urine Ketones Urine Blood Urine Nitrite Ur Leukocyte Esterase Urine RBC Urine WBC Ur Squamous Epith Cells Urine Bacteria Hyaline Casts Urine Test CSF Tube Number CSF Volume CSF Appearance CSF Color CSF WBC CSF RBC CSF Lymphocytes CSF Monocytes % CSF Appearance (b) CSF Glucose CSF Total Protein Vancomycin Trough 15.6 Random Vancomycin 14.3 L Urine Opiates Screen Urine Fentanyl Screen Ur Barbiturates Screen Ur Phencyclidine Scrn Ur Amphetamines Screen U Benzodiazepines Scrn Urine Cocaine Screen U Marijuana (THC) Screen Ethyl Alcohol Thyroglobulin Antibody Thyroid Peroxidase Ab Respiratory Panel [place] Adenovirus (Rapid PCR) B.pert (TEM-PCR) B.parapertussis DNA PCR C. pneumoniae DNA (PCR) Coronavirus OC43 (PCR) Coronavirus HKU1 (PCR) Coronavirus 229E (PCR) Coronavirus NL63 (PCR) Human Metapneumovir PCR Influenza A (RT-PCR) Influenza B (RT-PCR) M. pneumoniae (PCR) Parainfluenza 1 (PCR) Parainfluenza 2 (PCR) Parainfluenza 3 (PCR) Parainfluenza 4 (PCR) RSV (PCR) Entero/Rhino (PCR) SARS-CoV-2 RNA (RT-PCR) Blood Type Antibody Screen 08/22/23 08/23/23 08/23/23 18:35 07:09 13:18 WBC 10.4 RBC 3.13 L Hgb 10.1 L Hct 29.7 L MCV 94.9 MCH 32.3 MCHC 34.0 RDW 12.5 Plt Count 276 MPV 11.2 Immature Gran % (Auto) Neut % (Auto) Lymph % (Auto) Alfalfa % (Auto) Eos % (Auto) Baso % (Auto) Lymph # (Auto) Alfalfa # (Auto) Eos # (Auto) Baso # (Auto) Abs Immat Gran (auto) Absolute Neuts (auto) Absolute Nucleated RBC 0.000 Nucleated RBC % (auto) 0.0 Smear Tech's Comments Hold Purple Top PT INR APTT Hold Blue Top O2 Saturation ABG pH at Pt Temp ABG pCO2 at Pt Temp ABG pO2 at Pt Temp ABG HCO3 ABG Base Excess (Actual) VBG pH VBG pCO2 VBG pO2 VBG HCO3 VBG O2 Saturation VBG Base Excess Sodium 139 138 138 Potassium 3.1 L 2.7 L 3.3 D Chloride 103 104 104 Carbon Dioxide 25 24 27 Anion Gap 14 13 10 L BUN 8 L 7 L 7 L Creatinine 0.57 0.57 0.58 Estim Creat Clear Calc 150.4 150.4 147.7 Estimated GFR > 60 > 60 > 60 POC Glucose Random Glucose 127 H 95 104 Fasting Glucose Lactic Acid Lactic Acid F/U @ 2Hr Lactic Acid F/U @ 4Hr Calcium 8.6 D 8.1 L 8.0 L Phosphorus Magnesium Total Bilirubin Direct Bilirubin AST ALT Alkaline Phosphatase Total Creatine Kinase Troponin I High Sens Total Protein Albumin Lipase TSH Free T4 Urine Color Urine Appearance Urine pH Ur Specific [place] Urine Protein Urine Glucose (UA) Urine Ketones Urine Blood Urine Nitrite Ur Leukocyte Esterase Urine RBC Urine WBC Ur Squamous Epith Cells Urine Bacteria Hyaline Casts Urine Test CSF Tube Number CSF Volume CSF Appearance CSF Color CSF WBC CSF RBC CSF Lymphocytes CSF Monocytes % CSF Appearance (b) CSF Glucose CSF Total Protein Vancomycin Trough Random Vancomycin 22.9 H Urine Opiates Screen Urine Fentanyl Screen Ur Barbiturates Screen Ur Phencyclidine Scrn Ur Amphetamines Screen U Benzodiazepines Scrn Urine Cocaine Screen U Marijuana (THC) Screen Ethyl Alcohol Thyroglobulin Antibody Thyroid Peroxidase Ab Respiratory Panel [place] Adenovirus (Rapid PCR) B.pert (TEM-PCR) B.parapertussis DNA PCR C. pneumoniae DNA (PCR) Coronavirus OC43 (PCR) Coronavirus HKU1 (PCR) Coronavirus 229E (PCR) Coronavirus NL63 (PCR) Human Metapneumovir PCR Influenza A (RT-PCR) Influenza B (RT-PCR) M. pneumoniae (PCR) Parainfluenza 1 (PCR) Parainfluenza 2 (PCR) Parainfluenza 3 (PCR) Parainfluenza 4 (PCR) RSV (PCR) Entero/Rhino (PCR) SARS-CoV-2 RNA (RT-PCR) Blood Type Antibody Screen 08/23/23 08/24/23 08/25/23 18:04 07:12 06:26 WBC 9.4 RBC 2.78 L Hgb 8.8 L Hct 26.4 L MCV 95.0 MCH 31.7 MCHC 33.3 RDW 12.8 Plt Count 234 MPV 10.6 Immature Gran % (Auto) Neut % (Auto) Lymph % (Auto) Alfalfa % (Auto) Eos % (Auto) Baso % (Auto) Lymph # (Auto) Alfalfa # (Auto) Eos # (Auto) Baso # (Auto) Abs Immat Gran (auto) Absolute Neuts (auto) Absolute Nucleated RBC 0.000 Nucleated RBC % (auto) 0.0 Smear Tech's Comments Hold Purple Top PT INR APTT Hold Blue Top O2 Saturation ABG pH at Pt Temp ABG pCO2 at Pt Temp ABG pO2 at Pt Temp ABG HCO3 ABG Base Excess (Actual) VBG pH VBG pCO2 VBG pO2 VBG HCO3 VBG O2 Saturation VBG Base Excess Sodium 139 Potassium 3.1 L Chloride 106 Carbon Dioxide 24 Anion Gap 12 BUN 5 L Creatinine 0.53 0.59 Estim Creat Clear Calc 161.7 145.3 Estimated GFR > 60 > 60 POC Glucose Random Glucose 89 Fasting Glucose Lactic Acid Lactic Acid F/U @ 2Hr Lactic Acid F/U @ 4Hr Calcium 7.7 L Phosphorus Magnesium Total Bilirubin Direct Bilirubin AST ALT Alkaline Phosphatase Total Creatine Kinase Troponin I High Sens Total Protein Albumin Lipase TSH Free T4 Urine Color Urine Appearance Urine pH Ur Specific [place] Urine Protein Urine Glucose (UA) Urine Ketones Urine Blood Urine Nitrite Ur Leukocyte Esterase Urine RBC Urine WBC Ur Squamous Epith Cells Urine Bacteria Hyaline Casts Urine Test CSF Tube Number CSF Volume CSF Appearance CSF Color CSF WBC CSF RBC CSF Lymphocytes CSF Monocytes % CSF Appearance (b) CSF Glucose CSF Total Protein Vancomycin Trough Random Vancomycin 14.3 L Urine Opiates Screen Urine Fentanyl Screen Ur Barbiturates Screen Ur Phencyclidine Scrn Ur Amphetamines Screen U Benzodiazepines Scrn Urine Cocaine Screen U Marijuana (THC) Screen Ethyl Alcohol Thyroglobulin Antibody Thyroid Peroxidase Ab Respiratory Panel [place] Adenovirus (Rapid PCR) B.pert (TEM-PCR) B.parapertussis DNA PCR C. pneumoniae DNA (PCR) Coronavirus OC43 (PCR) Coronavirus HKU1 (PCR) Coronavirus 229E (PCR) Coronavirus NL63 (PCR) Human Metapneumovir PCR Influenza A (RT-PCR) Influenza B (RT-PCR) M. pneumoniae (PCR) Parainfluenza 1 (PCR) Parainfluenza 2 (PCR) Parainfluenza 3 (PCR) Parainfluenza 4 (PCR) RSV (PCR) Entero/Rhino (PCR) SARS-CoV-2 RNA (RT-PCR) Blood Type Antibody Screen 08/25/23 08/25/23 08/26/23 08:31 10:44 06:35 WBC 11.5 H RBC 2.53 L Hgb 10.1 L 7.9 L D Hct 30.7 L 24.1 L D MCV 95.3 MCH 31.2 MCHC 32.8 RDW 12.6 Plt Count 272 MPV 11.3 Immature Gran % (Auto) Neut % (Auto) Lymph % (Auto) Alfalfa % (Auto) Eos % (Auto) Baso % (Auto) Lymph # (Auto) Alfalfa # (Auto) Eos # (Auto) Baso # (Auto) Abs Immat Gran (auto) Absolute Neuts (auto) Absolute Nucleated RBC 0.000 Nucleated RBC % (auto) 0.0 Smear Tech's Comments Hold Purple Top SEE NOTE PT INR APTT Hold Blue Top O2 Saturation ABG pH at Pt Temp ABG pCO2 at Pt Temp ABG pO2 at Pt Temp ABG HCO3 ABG Base Excess (Actual) VBG pH VBG pCO2 VBG pO2 VBG HCO3 VBG O2 Saturation VBG Base Excess Sodium 137 135 Potassium 3.5 3.7 Chloride 99 101 Carbon Dioxide 27 24 Anion Gap 15 14 BUN 7 L Creatinine 0.64 Estim Creat Clear Calc 133.9 Estimated GFR > 60 POC Glucose Random Glucose Fasting Glucose 104 H Lactic Acid Lactic Acid F/U @ 2Hr Lactic Acid F/U @ 4Hr Calcium 8.4 D Phosphorus Magnesium Total Bilirubin Direct Bilirubin AST ALT Alkaline Phosphatase Total Creatine Kinase Troponin I High Sens Total Protein Albumin Lipase TSH Free T4 Urine Color Urine Appearance Urine pH Ur Specific [place] Urine Protein Urine Glucose (UA) Urine Ketones Urine Blood Urine Nitrite Ur Leukocyte Esterase Urine RBC Urine WBC Ur Squamous Epith Cells Urine Bacteria Hyaline Casts Urine Test CSF Tube Number CSF Volume CSF Appearance CSF Color CSF WBC CSF RBC CSF Lymphocytes CSF Monocytes % CSF Appearance (b) CSF Glucose CSF Total Protein Vancomycin Trough Random Vancomycin Urine Opiates Screen Urine Fentanyl Screen Ur Barbiturates Screen Ur Phencyclidine Scrn Ur Amphetamines Screen U Benzodiazepines Scrn Urine Cocaine Screen U Marijuana (THC) Screen Ethyl Alcohol Thyroglobulin Antibody Thyroid Peroxidase Ab Respiratory Panel [place] Adenovirus (Rapid PCR) B.pert (TEM-PCR) B.parapertussis DNA PCR C. pneumoniae DNA (PCR) Coronavirus OC43 (PCR) Coronavirus HKU1 (PCR) Coronavirus 229E (PCR) Coronavirus NL63 (PCR) Human Metapneumovir PCR Influenza A (RT-PCR) Influenza B (RT-PCR) M. pneumoniae (PCR) Parainfluenza 1 (PCR) Parainfluenza 2 (PCR) Parainfluenza 3 (PCR) Parainfluenza 4 (PCR) RSV (PCR) Entero/Rhino (PCR) SARS-CoV-2 RNA (RT-PCR) Blood Type B Positive Antibody Screen NEGATIVE 08/26/23 08/27/23 08/27/23 15:01 06:07 15:05 WBC 10.5 RBC 2.55 L Hgb 8.2 L Hct 24.5 L MCV 96.1 MCH 32.2 MCHC 33.5 RDW 12.4 Plt Count 306 MPV 11.5 Immature Gran % (Auto) Neut % (Auto) Lymph % (Auto) Alfalfa % (Auto) Eos % (Auto) Baso % (Auto) Lymph # (Auto) Alfalfa # (Auto) Eos # (Auto) Baso # (Auto) Abs Immat Gran (auto) Absolute Neuts (auto) Absolute Nucleated RBC 0.000 Nucleated RBC % (auto) 0.0 Smear Tech's Comments Hold Purple Top PT INR APTT Hold Blue Top O2 Saturation ABG pH at Pt Temp ABG pCO2 at Pt Temp ABG pO2 at Pt Temp ABG HCO3 ABG Base Excess (Actual) VBG pH VBG pCO2 VBG pO2 VBG HCO3 VBG O2 Saturation VBG Base Excess Sodium 138 Potassium 3.9 Chloride 103 Carbon Dioxide 25 Anion Gap 14 BUN 5 L Creatinine 0.66 Estim Creat Clear Calc 129.8 Estimated GFR > 60 POC Glucose Random Glucose Fasting Glucose 105 H Lactic Acid Lactic Acid F/U @ 2Hr Lactic Acid F/U @ 4Hr Calcium 8.4 Phosphorus Magnesium Total Bilirubin Direct Bilirubin AST ALT Alkaline Phosphatase Total Creatine Kinase Troponin I High Sens Total Protein Albumin Lipase TSH Free T4 Urine Color Urine Appearance Urine pH Ur Specific [place] Urine Protein Urine Glucose (UA) Urine Ketones Urine Blood Urine Nitrite Ur Leukocyte Esterase Urine RBC Urine WBC Ur Squamous Epith Cells Urine Bacteria Hyaline Casts Urine Test CSF Tube Number CSF Volume CSF Appearance CSF Color CSF WBC CSF RBC CSF Lymphocytes CSF Monocytes % CSF Appearance (b) CSF Glucose CSF Total Protein Vancomycin Trough Random Vancomycin 8.1 L 19.2 Urine Opiates Screen Urine Fentanyl Screen Ur Barbiturates Screen Ur Phencyclidine Scrn Ur Amphetamines Screen U Benzodiazepines Scrn Urine Cocaine Screen U Marijuana (THC) Screen Ethyl Alcohol Thyroglobulin Antibody Thyroid Peroxidase Ab Respiratory Panel [place] Adenovirus (Rapid PCR) B.pert (TEM-PCR) B.parapertussis DNA PCR C. pneumoniae DNA (PCR) Coronavirus OC43 (PCR) Coronavirus HKU1 (PCR) Coronavirus 229E (PCR) Coronavirus NL63 (PCR) Human Metapneumovir PCR Influenza A (RT-PCR) Influenza B (RT-PCR) M. pneumoniae (PCR) Parainfluenza 1 (PCR) Parainfluenza 2 (PCR) Parainfluenza 3 (PCR) Parainfluenza 4 (PCR) RSV (PCR) Entero/Rhino (PCR) SARS-CoV-2 RNA (RT-PCR) Blood Type Antibody Screen 08/28/23 07:25 WBC RBC Hgb Hct MCV MCH MCHC RDW Plt Count MPV Immature Gran % (Auto) Neut % (Auto) Lymph % (Auto) Alfalfa % (Auto) Eos % (Auto) Baso % (Auto) Lymph # (Auto) Alfalfa # (Auto) Eos # (Auto) Baso # (Auto) Abs Immat Gran (auto) Absolute Neuts (auto) Absolute Nucleated RBC Nucleated RBC % (auto) Smear Tech's Comments Hold Purple Top SEE NOTE PT INR APTT Hold Blue Top O2 Saturation ABG pH at Pt Temp ABG pCO2 at Pt Temp ABG pO2 at Pt Temp ABG HCO3 ABG Base Excess (Actual) VBG pH VBG pCO2 VBG pO2 VBG HCO3 VBG O2 Saturation VBG Base Excess Sodium Potassium Chloride Carbon Dioxide Anion Gap BUN Creatinine 0.72 Estim Creat Clear Calc 119.0 Estimated GFR > 60 POC Glucose Random Glucose Fasting Glucose Lactic Acid Lactic Acid F/U @ 2Hr Lactic Acid F/U @ 4Hr Calcium Phosphorus Magnesium Total Bilirubin Direct Bilirubin AST ALT Alkaline Phosphatase Total Creatine Kinase Troponin I High Sens Total Protein Albumin Lipase TSH Free T4 Urine Color Urine Appearance Urine pH Ur Specific [place] Urine Protein Urine Glucose (UA) Urine Ketones Urine Blood Urine Nitrite Ur Leukocyte Esterase Urine RBC Urine WBC Ur Squamous Epith Cells Urine Bacteria Hyaline Casts Urine Test CSF Tube Number CSF Volume CSF Appearance CSF Color CSF WBC CSF RBC CSF Lymphocytes CSF Monocytes % CSF Appearance (b) CSF Glucose CSF Total Protein Vancomycin Trough Random Vancomycin Urine Opiates Screen Urine Fentanyl Screen Ur Barbiturates Screen Ur Phencyclidine Scrn Ur Amphetamines Screen U Benzodiazepines Scrn Urine Cocaine Screen U Marijuana (THC) Screen Ethyl Alcohol Thyroglobulin Antibody Thyroid Peroxidase Ab Respiratory Panel [place] Adenovirus (Rapid PCR) B.pert (TEM-PCR) B.parapertussis DNA PCR C. pneumoniae DNA (PCR) Coronavirus OC43 (PCR) Coronavirus HKU1 (PCR) Coronavirus 229E (PCR) Coronavirus NL63 (PCR) Human Metapneumovir PCR Influenza A (RT-PCR) Influenza B (RT-PCR) M. pneumoniae (PCR) Parainfluenza 1 (PCR) Parainfluenza 2 (PCR) Parainfluenza 3 (PCR) Parainfluenza 4 (PCR) RSV (PCR) Entero/Rhino (PCR) SARS-CoV-2 RNA (RT-PCR) Blood Type Antibody Screen Narrative Narrative: EKG 08/16/2023 Sinus tachycardia Otherwise normal ECG When compared with ECG of 18-JUL-2012 04:30, T wave inversion less evident in Inferior leads Nonspecific T wave abnormality no longer evident in Lateral leads Heart rate has increased ECHO 08/17/2023 - The left ventricular systolic function is severely decreased. The calculated ejection fraction is 22% by biplane method. - There is severe global hypokinesis with regional variation. - No obvious valvular pathology seen on this study. Airway Mallampati Class: III Neck ROM: Limited Loose/Missing/Broken Teeth: Yes (poor, chipped ) Assessment and Plan Assessment Anesthesia Assessment: Anesthesia Plan Discussed and Chart Reviewed Final Anesthetic Review Family History of Problems with Anesthesia: No History of Problems with Anesthesia: No NPO: Yes ASA Class: III and Emergency Final Preanesthetic Review: Meds/Allgs Chart Reviewed, Consent Obtained/Reviewed and Anes Risks/Benef Reviewed Patient Risk: High Procedure Risk: Intermediate Anesthetic Plan Anesthetic Plan: MAC: and Agree w/ Assess. and Plan Disposition: Inp. Admit - [facility]
[2023-08-28 16:53] LABS: Vancomycin Random 13.5 mcg/mL (15-20)
--- NOTE | 2023-08-28 17:24 | HE.PHANOTE ---
VANCO DOSE ADJUSTMENT BASED ON SCR AND TROUGH OF 13.5 DOSE CONTINUED AT 1250 Q 12H. NEXT TROUGH AT 08/28 @ 1400
--- NOTE | 2023-08-28 18:05 | P.BOP_ITS ---
Brief Operative Note Date of Service: 08/28/23 Pre-op diagnosis: left forearm compartment syndrome Post-op diagnosis: same Procedure: irrigation and debridement left forearm Implants: none Surgeon: Devang Long MD Anesthesia: GETA and MAC Was an Process Checker used for this Procedure?: No Estimated blood loss (mL): 75 IV fluids (mL): 500 Pathology: none sent Condition: stable Disposition: PACU
[2023-08-28] MEDS: HYDROmorphone HCl 0.5 MG/0.5 ML SYRINGE 0.25 MG IVPUSH ×4 (18:30→18:47)
[2023-08-28] MEDS: oxyCODONE HCl Immed Release 5 MG TABLET PO (18:31)
[2023-08-28 19:10] LABS: Hematocrit 22.2 % (37.0-47.0); Hemoglobin 7.6 g/dl (12.0-16.0)
[2023-08-29] VITALS (9 sets, daily range): BP systolic 97–127; BP diastolic 58–70; PULSE 94–117; RESP 18–22; TEMP 36.4–38.8; O2SAT 93–98
[2023-08-29] MEDS: HYDROmorphone HCl 2 MG TABLET 3 MG PO ×7 (00:05→18:34)
[2023-08-29] MEDS: HYDROmorphone HCl 2 MG/ML VIAL 3 MG IVPUSH ×6 (01:44→21:36)
[2023-08-29] MEDS: diphenhydrAMINE HCL 50 MG/ML VIAL IVPUSH (04:23)
[2023-08-29] MEDS: vancomycin HCL 1,250 MG in 0.9 % Sodium Chloride 250 ML 166.67 MG IV (04:23)
[2023-08-29] MEDS: Morphine Sulfate ER 15 MG TABLET.ER PO ×3 (06:14→22:51)
[2023-08-29] MEDS: Piperacillin Sodium/Tazobactam 3.375 GM in 0.9 % Sodium Chloride 50 ML IV ×4 (06:15→22:51)
[2023-08-29 07:24] LABS: Hematocrit 22.2 % (37.0-47.0); Hemoglobin 7.2 g/dl (12.0-16.0); Mean Corpuscular HGB Conc 32.4 g/dl (31.0-35.0); Mean Corpuscular Volume 95.7 fL (80.0-98.0); Mean Platelet Volume 11.4 fL (9.4-12.3); Platelet Count 324 X10*3/uL (160-400); Red Blood Count 2.32 X10*6/uL (4.20-5.50); Red Cell Distribution Width 12.5 % (11.0-16.0); White Blood Count 8.1 X10*3/uL (4.8-10.8)
[2023-08-29 07:46] LABS: Anion Gap 15 (12-20); Blood Urea Nitrogen 5 mg/dL (9-16); Calcium 8.4 mg/dL (8.4-10.2); Carbon Dioxide 23 mmol/L (22-29); Chloride 102 mmol/L (96-108); Creatinine Clr Calc Pharmacy 114.2; Estimated Glomerular Filt Rate > 60; Glucose Fasting 109 mg/dL (60-99); Potassium 3.5 mmol/L (3.3-5.1); Sodium 136 mmol/L (135-145)
[2023-08-29 07:55] LABS: HIV AB/AG Nonreactive (Nonreactive); HIV Num 1 0.29 S/CO (0.00-0.99); ~HepC Num1 0.18 S/CO (0.00-0.79); ~Hepatitis C Antibody Nonreactive (Nonreactive)
[2023-08-29] MEDS: Hydrocortisone 1 % Cream 28.35 GM TUBE 1 APPL TOPICAL (08:02)
[2023-08-29] MEDS: 0.9 % Sodium Chloride Flush 3 ML SYRINGE IVFLUSH ×2 (08:02→15:39)
[2023-08-29] MEDS: Docusate Sodium 100 MG CAPSULE PO ×2 (08:07→21:39)
[2023-08-29] MEDS: Lactulose 20 GM/30 ML SOLUTION PO ×2 (08:07→14:31)
[2023-08-29] MEDS: carvediloL 3.125 MG TABLET PO ×2 (08:07→21:39)
[2023-08-29] MEDS: Gabapentin 100 MG CAPSULE 200 MG PO ×2 (08:07→21:39)
[2023-08-29] MEDS: Acetaminophen 325 MG TABLET 650 MG PO (09:48)
--- NOTE | 2023-08-29 10:24 | P.PNIM_ITS ---
Subjective Subjective Date of Service: 08/29/23 Interval History: no changes ENT Ears, Nose, Mouth, and Throat: Reports Normal hearing present Neurologic Neurologic: Reports Normal hearing present Physical Exam 2 Vital Signs: Vital Signs: Last Vital Signs Temp 101.9 F H 08/29/23 09:24 Pulse 100 08/29/23 07:53 Resp 18 08/29/23 07:53 BP 113/66 08/29/23 07:53 Pulse Ox 97 08/29/23 07:53 O2 Del Method Room Air 08/29/23 07:53 O2 Flow Rate 3 08/25/23 16:54 FiO2 35 08/19/23 07:58 BMI result Body Mass Index 29.3 Neuro: Cranial nerves: Yes Normal hearing present Objective Data Active Medications Acetaminophen (Acetaminophen 325 Mg Tablet) 650 mg PO Q4H PRN PRN Reason: fever or pain Last Admin: 08/29/23 09:48 Dose: 650 mg Documented By: JOE Carvedilol (Carvedilol 3.125 Mg Tablet) 3.125 mg PO BID [facility]; Protocol Last Admin: 08/29/23 08:07 Dose: 3.125 mg Documented By: JEAN Docusate Sodium (Docusate Sodium 100 Mg Capsule) 100 mg PO BID [facility] Last Admin: 08/29/23 08:07 Dose: 100 mg Documented By: JEAN Fentanyl (Fentanyl Citrate/Pf 100 Mcg/2 Ml Vial) 50 mcg IVPUSH Q5M PRN; Protocol PRN Reason: Pain, Severe (Pain Scale 7-10) Fentanyl (Fentanyl Citrate/Pf 100 Mcg/2 Ml Vial) 25 mcg IVPUSH Q5M PRN; Protocol PRN Reason: Pain, Moderate(Pain Scale 4-6) Gabapentin (Gabapentin 100 Mg Capsule) 200 mg PO BID [facility] Last Admin: 08/29/23 08:07 Dose: 200 mg Documented By: JEAN Hydrocortisone (Hydrocortisone 1 % Cream 28.35 Gm Tube) 1 appl TOPICAL DAILY [facility]; Protocol Last Admin: 08/29/23 08:02 Dose: 1 appl Documented By: JEAN Hydromorphone HCl (Hydromorphone Hcl 2 Mg Tablet) 3 mg PO Q3H [facility] Last Admin: 08/29/23 09:48 Dose: 3 mg Documented By: HO.LESSARL Hydromorphone HCl (Hydromorphone Hcl 2 Mg/Ml Vial) 3 mg IVPUSH Q3H PRN; Protocol PRN Reason: severe pain Last Admin: 08/29/23 07:58 Dose: 3 mg Documented By: JEAN Hydromorphone HCl (Hydromorphone Hcl 0.5 Mg/0.5 Ml Syringe) 0.5 mg IVPUSH Q5M PRN; Protocol PRN Reason: Pain, Severe (Pain Scale 7-10) Piperacillin Sod/Tazobactam (Sod 3.375 gm/ Sodium Chloride) 50 mls @ 100 mls/hr IV Q6H [facility] Last Infusion: 08/29/23 08:38 Dose: Infused Documented By: JOE Vancomycin HCl 1,250 mg/ (Sodium Chloride) 250 mls @ 166.667 mls/hr IV Q12H [facility] Last Infusion: 08/29/23 06:18 Dose: Infused Documented By: LORRAINE Lactulose (Lactulose 20 Gm/30 Ml Solution) 20 gm PO TID [facility] Last Admin: 08/29/23 08:07 Dose: 20 gm Documented By: JEAN Morphine Sulfate (Morphine Sulfate Er 15 Mg Tablet.Er) 15 mg PO Q8H [facility] Last Admin: 08/29/23 06:14 Dose: 15 mg Documented By: LORRAINE Ondansetron HCl (Ondansetron Hcl 4 Mg/2 Ml Vial) 4 mg IVPUSH ONCE PRN PRN Reason: Nausea and Vomiting Oxycodone HCl (Oxycodone Hcl Immed Release 5 Mg Tablet) 10 mg PO ONCE PRN PRN Reason: Pain, Severe (Pain Scale 7-10) Pharmacy Consult (Consult Rx Vancomycin Dosing) 1 each MISCELLANE DAILY PRN PRN Reason: Consult order Sodium Chloride (0.9 % Sodium Chloride Flush 3 Ml Syringe) 3 ml IVFLUSH QSHIFT [facility] Last Admin: 08/29/23 08:02 Dose: 3 ml Documented By: JEAN Labs 08/29/23 07:04 08/29/23 07:04 Labs: Laboratory Results - last 24 hr 08/28/23 08/28/23 08/28/23 13:38 16:28 19:00 MCV MCH MCHC RDW Plt Count MPV Absolute Nucleated RBC Nucleated RBC % (auto) Anion Gap Estim Creat Clear Calc Estimated GFR Fasting Glucose Calcium Hold Red Top See Note Random Vancomycin 13.5 L Hepatitis C Ab (EIA) Nonreactive HIV 1&2 Ab/P24 Ag 4thGn Nonreactive Influenza Type A (PCR) Cancelled Influenza Type B (PCR) Cancelled RSV RNA Qual (PCR) Cancelled SARS-CoV-2 RNA (RT-PCR) Cancelled Blood Type B Positive Antibody Screen NEGATIVE 08/29/23 07:04 MCV 95.7 MCH 31.0 MCHC 32.4 RDW 12.5 Plt Count 324 MPV 11.4 Absolute Nucleated RBC 0.000 Nucleated RBC % (auto) 0.0 Anion Gap 15 Estim Creat Clear Calc 114.2 Estimated GFR > 60 Fasting Glucose 109 H Calcium 8.4 Hold Red Top Random Vancomycin Hepatitis C Ab (EIA) HIV 1&2 Ab/P24 Ag 4thGn Influenza Type A (PCR) Influenza Type B (PCR) RSV RNA Qual (PCR) SARS-CoV-2 RNA (RT-PCR) Blood Type Antibody Screen Assessment and Plan (1) Opioid use disorder: Status: Acute (2) Cocaine use disorder: Status: Acute (3) Cardiomyopathy: Status: Acute (4) Encephalopathy: Status: Acute (5) Traumatic brachial plexopathy: Status: Acute (6) Compartment syndrome of forearm: Status: Acute (7) Secondary rhabdomyolysis: Status: Acute (8) Aspiration pneumonia: Status: Acute Plan 33 years old lady who presented with AMS from overdose developed Compartment, rhabdo, aspiration, CMP requring ICU admission and intubation with 4 surgeries to relieve the compartment. Compartment syndrome LUE forearm s/p multiple debridements Narcotics for pain ortho, vascular wound team following, wound vac in place concern for infection vanc, zosyn, id appreciated fevers ?drug fever, follow up id acute Peripheral neuropathy 2/2 compartment neurology evaluation appreciated, custodial follow up New onset acute Cardiomyopathy likely from hypoxia Echo on 08/17 showed 20% repeat Echo per ICU showed improvement cardiology rec starting carvedilol and consider KENNETH-I i fable to tolerate Aspiration pneumonia completed course of IV Abx of Vanco and Meropenem cultures negative now Acute hypokalemia given replacement Constipation Laxatives Drug abuse Addiction team following; started on Methadone New onset seizure Neurology eval one time incident, no need to treat and monitor for now DC Keppra and monitor DVT PPx SCDs - due to ongoing interventions reason for continued hospitalization:ongiong surgical interventions Time Spent With Patient Time: Total time managing care of this patient today ____ minutes. Quality Stroke Does the patient have a stroke diagnosis?: No VTE Prior VTE?: No VTE Risk Level:: Medical - moderate - high VTE Device Contraindication: N/A - Device Ordered VTE Drug Contraindication: Treatment Not Indicated
--- NOTE | 2023-08-29 10:31 | HO.POSTANES ---
Post Anesthesia Evaluation Post Anesthesia Evaluation Date of Service: 08/29/23 Vital Signs: Vital Signs Temp Pulse Resp BP Pulse Ox O2 Del Method 08/29/23 09:24 101.9 F H 08/29/23 07:53 99.6 F 100 18 113/66 97 Room Air 08/29/23 04:00 98.6 F 94 20 107/70 93 Room Air 08/28/23 23:48 98.4 F 86 18 101/62 93 Room Air Anesthesia: Monitored Mental Status: Awake Pain Control: Satisfactory Nausea/Vomiting: None Hydration: Adequate Anesthesia-Related Issues: No Anes. Related Issues
[2023-08-29] MEDS: LORazepam 0.5 MG TABLET PO ×2 (10:34→21:42)
[2023-08-29 14:43] LABS: Vancomycin Random 12.4 mcg/mL (15-20)
[2023-08-29] MEDS: vancomycin HCL 1,500 MG in 0.9 % Sodium Chloride 500 ML 333.33 MG IV (15:39)
[2023-08-30] VITALS (14 sets, daily range): BP systolic 103–124; BP diastolic 58–80; PULSE 100–111; RESP 10–20; TEMP 36.5–38.7; O2SAT 93–97
[2023-08-30] MEDS: 0.9 % Sodium Chloride Flush 3 ML SYRINGE IVFLUSH ×2 (00:30→15:37)
[2023-08-30] MEDS: HYDROmorphone HCl 2 MG TABLET 3 MG PO ×6 (00:30→21:23)
[2023-08-30] MEDS: Acetaminophen 325 MG TABLET 650 MG PO ×2 (00:31→12:49)
[2023-08-30] MEDS: HYDROmorphone HCl 2 MG/ML VIAL 3 MG IVPUSH ×6 (01:30→22:30)
--- NOTE | 2023-08-30 02:00 | PC.NURSE ---
PT STATED THAT SHE LOST THE SUCTION FROM HER WOUND VAC.AIR LEAK NOTED.AREA REINFORCED WITH TEGADERM WITH GOOD EFFECT.SUCTION REESTABLISHED AT 75MM/HG.
[2023-08-30] MEDS: vancomycin HCL 1,500 MG in 0.9 % Sodium Chloride 500 ML 333.33 MG IV ×2 (02:18→15:59)
--- NOTE | 2023-08-30 03:00 | MHC.PIE ---
P.CENTRAL LINE LEAKING I. TLC SITE NOTED TO BE LEAKING WHEN IV ANTIBIOTIC HUNG.UNABLE TO DRAW BLOOD BACK.DR TREJO NOTIFIED.ORDER GIVEN TO REMOVE CENTRAL LINE.TLC REMOVED BY NURSING PLUMBING AND HEATING MECHANIC WITHOUT INCIDENT.PT TOLERATED WELL. E.2 NEW IV'S PLACED TO RIGHT ARM.
[2023-08-30] MEDS: Piperacillin Sodium/Tazobactam 3.375 GM in 0.9 % Sodium Chloride 50 ML IV ×4 (05:16→23:06)
[2023-08-30] MEDS: Morphine Sulfate ER 15 MG TABLET.ER PO ×3 (06:36→23:06)
[2023-08-30 06:42] LABS: Creatinine Clr Calc Pharmacy 115.8; Estimated Glomerular Filt Rate > 60
[2023-08-30] MEDS: carvediloL 3.125 MG TABLET PO ×2 (07:54→21:23)
[2023-08-30] MEDS: Gabapentin 100 MG CAPSULE 200 MG PO ×2 (07:55→21:24)
[2023-08-30] MEDS: Docusate Sodium 100 MG CAPSULE PO ×2 (07:55→21:24)
--- NOTE | 2023-08-30 10:04 | MHC.SHP ---
Pre-Procedural Eval Section A Date of Service: 08/30/23 The patient is an INPATIENT: Yes Changes since office visit: No Cold of Flu in the past 2 weeks, No New Medical Problems, No Changes in Medication and No Patient answered all questions The History & Physical has been completed within 30 days and I have reviewed it.: Yes Section B Chief Complaint: weakness Allergies: Allergies Allergy/AdvReac Type Severity Reaction Status Date / Time No Known Allergies Allergy Verified 04/24/23 13:48 Plan I have reviewed the history and physical and performed a pertinent physical examination on my patient. No changes have occurred unless specified. Time Spent With Patient Time: Total time managing care of this patient today ____ minutes.
--- NOTE | 2023-08-30 10:04 | PM.PNORT ---
Subjective Subjective Date of Service: 08/30/23 Principal diagnosis: left brachial plexus neuropathy and compartment syndrome forearm Interval history: Febrile overnight Central line removed Physical Exam Vital Signs: Vital Signs: Last Vital Signs Temp 98.6 F 08/30/23 08:00 Pulse 108 H 08/30/23 08:00 Resp 20 08/30/23 08:00 BP 112/64 08/30/23 08:00 Pulse Ox 97 08/30/23 08:00 O2 Del Method Room Air 08/30/23 08:00 O2 Flow Rate 3 08/25/23 16:54 FiO2 35 08/19/23 07:58 BMI result Body Mass Index 29.3 Extrem: Other: wound vac holding suction no motion except triceps Procedures Date of Service Date of Service: 08/30/23 Progress Note: A&P Assessment and plan (1) Brachial plexopathy: Status: Acute (2) Compartment syndrome of forearm: Status: Acute Assessment and Plan: wound vac change today with irrigation and debridement if needed npo Time Spent With Patient Time: Total time managing care of this patient today ____ minutes. Quality Stroke Does the patient have a stroke diagnosis?: No VTE Prior VTE?: No VTE Risk Level:: Medical - moderate - high VTE Device Contraindication: N/A - Device Ordered VTE Drug Contraindication: Treatment Not Indicated
--- NOTE | 2023-08-30 10:26 | MHC.CM.PN ---
EMR reviewed. Per MD rounds patient is not medically cleared for DC, requiring ongoing surgical intervention. [facility] following. CM will continue to follow.
--- NOTE | 2023-08-30 10:30 | P.PNIM_ITS ---
Subjective Subjective Date of Service: 08/30/23 Interval History: no changes Physical Exam 2 Vital Signs: Vital Signs: Last Vital Signs Temp 98.6 F 08/30/23 08:00 Pulse 108 H 08/30/23 08:00 Resp 20 08/30/23 08:00 BP 112/64 08/30/23 08:00 Pulse Ox 97 08/30/23 08:00 O2 Del Method Room Air 08/30/23 08:00 O2 Flow Rate 3 08/25/23 16:54 FiO2 35 08/19/23 07:58 BMI result Body Mass Index 29.3 Extrem: Other: wound vac holding suction no motion except triceps Objective Data Active Medications Acetaminophen (Acetaminophen 325 Mg Tablet) 650 mg PO Q4H PRN PRN Reason: fever or pain Last Admin: 08/30/23 00:31 Dose: 650 mg Documented By: BERNARD Carvedilol (Carvedilol 3.125 Mg Tablet) 3.125 mg PO BID [facility]; Protocol Last Admin: 08/30/23 07:54 Dose: 3.125 mg Documented By: ELENA Docusate Sodium (Docusate Sodium 100 Mg Capsule) 100 mg PO BID [facility] Last Admin: 08/30/23 07:55 Dose: 100 mg Documented By: ELENA Fentanyl (Fentanyl Citrate/Pf 100 Mcg/2 Ml Vial) 50 mcg IVPUSH Q5M PRN; Protocol PRN Reason: Pain, Severe (Pain Scale 7-10) Fentanyl (Fentanyl Citrate/Pf 100 Mcg/2 Ml Vial) 25 mcg IVPUSH Q5M PRN; Protocol PRN Reason: Pain, Moderate(Pain Scale 4-6) Fentanyl (Fentanyl Citrate/Pf 100 Mcg/2 Ml Vial) 50 mcg IVPUSH Q5M PRN; Protocol PRN Reason: Pain, Severe (Pain Scale 7-10) Gabapentin (Gabapentin 100 Mg Capsule) 200 mg PO BID [facility] Last Admin: 08/30/23 07:55 Dose: 200 mg Documented By: ELENA Hydrocortisone (Hydrocortisone 1 % Cream 28.35 Gm Tube) 1 appl TOPICAL DAILY [facility]; Protocol Last Admin: 08/30/23 09:40 Dose: Not Given Documented By: ELENA Non-Admin Reason: Off Unit: Surgery Hydromorphone HCl (Hydromorphone Hcl 2 Mg Tablet) 3 mg PO Q3H [facility] Last Admin: 08/30/23 06:35 Dose: 3 mg Documented By: BERNARD Hydromorphone HCl (Hydromorphone Hcl 2 Mg/Ml Vial) 3 mg IVPUSH Q3H PRN; Protocol PRN Reason: severe pain Last Admin: 08/30/23 08:42 Dose: 3 mg Documented By: ELENA Hydromorphone HCl (Hydromorphone Hcl 0.5 Mg/0.5 Ml Syringe) 0.5 mg IVPUSH Q5M PRN; Protocol PRN Reason: Pain, Severe (Pain Scale 7-10) Piperacillin Sod/Tazobactam (Sod 3.375 gm/ Sodium Chloride) 50 mls @ 100 mls/hr IV Q6H [facility] Last Admin: 08/30/23 10:09 Dose: 100 mls/hr Documented By: KESHIA Vancomycin HCl 1,500 mg/ (Sodium Chloride) 500 mls @ 333.333 mls/hr IV Q12H [facility] Last Infusion: 08/30/23 04:07 Dose: Infused Documented By: BERNARD Cefazolin Sodium/Dextrose (Ancef) 2 gm in 50 mls @ 100 mls/hr IV PREOP ONE Stop: 08/30/23 10:41 Lactulose (Lactulose 20 Gm/30 Ml Solution) 20 gm PO TID [facility] Last Admin: 08/29/23 21:39 Dose: Not Given Documented By: GARCÍA Non-Admin Reason: Patient Refused Lorazepam (Lorazepam 0.5 Mg Tablet) 0.5 mg PO Q8H PRN PRN Reason: Anxiety Last Admin: 08/29/23 21:42 Dose: 0.5 mg Documented By: GARCÍA Morphine Sulfate (Morphine Sulfate Er 15 Mg Tablet.Er) 15 mg PO Q8H [facility] Last Admin: 08/30/23 06:36 Dose: 15 mg Documented By: BERNARD Ondansetron HCl (Ondansetron Hcl 4 Mg/2 Ml Vial) 4 mg IVPUSH ONCE PRN PRN Reason: Nausea and Vomiting Ondansetron HCl (Ondansetron Hcl 4 Mg/2 Ml Vial) 4 mg IVPUSH ONCE PRN PRN Reason: Nausea and Vomiting Oxycodone HCl (Oxycodone Hcl Immed Release 5 Mg Tablet) 10 mg PO ONCE PRN PRN Reason: Pain, Severe (Pain Scale 7-10) Pharmacy Consult (Consult Rx Vancomycin Dosing) 1 each MISCELLANE DAILY PRN PRN Reason: Consult order Sodium Chloride (0.9 % Sodium Chloride Flush 3 Ml Syringe) 3 ml IVFLUSH QSHIFT [facility] Last Admin: 08/30/23 00:30 Dose: 3 ml Documented By: BERNARD Labs 08/29/23 07:04 08/30/23 06:00 Labs: Laboratory Results - last 24 hr 08/29/23 08/30/23 14:19 06:00 Hold Purple Top SEE NOTE Estim Creat Clear Calc 115.8 Estimated GFR > 60 Random Vancomycin 12.4 L Assessment and Plan (1) Opioid use disorder: Status: Acute (2) Cocaine use disorder: Status: Acute (3) Cardiomyopathy: Status: Acute (4) Encephalopathy: Status: Acute (5) Traumatic brachial plexopathy: Status: Acute (6) Compartment syndrome of forearm: Status: Acute (7) Secondary rhabdomyolysis: Status: Acute (8) Aspiration pneumonia: Status: Acute Plan 33 years old lady who presented with AMS from overdose developed Compartment, rhabdo, aspiration, CMP requring ICU admission and intubation with 4 surgeries to relieve the compartment. Compartment syndrome LUE forearm s/p multiple debridements Narcotics for pain ortho, vascular wound team following, wound vac in place concern for infection vanc, zosyn, id appreciated fevers ?drug fever, follow up cultures, TLC removed acute Peripheral neuropathy 2/2 compartment neurology evaluation appreciated, [facility] follow up New onset acute Cardiomyopathy likely from hypoxia Echo on 08/17 showed 20% repeat Echo per ICU showed improvement cardiology rec starting carvedilol and consider KENNETH-I i fable to tolerate Aspiration pneumonia completed course of IV Abx of Vanco and Meropenem Acute hypokalemia given replacement Constipation Laxatives Drug abuse Addiction team following; started on Methadone New onset seizure Neurology eval one time incident, no need to treat and monitor for now DC Keppra and monitor DVT PPx SCDs - due to ongoing interventions reason for continued hospitalization:ongiong surgical interventions, fever Time Spent With Patient Time: Total time managing care of this patient today ____ minutes. Quality Stroke Does the patient have a stroke diagnosis?: No VTE Prior VTE?: No VTE Risk Level:: Medical - moderate - high VTE Device Contraindication: N/A - Device Ordered VTE Drug Contraindication: Treatment Not Indicated
[2023-08-30] MEDS: fentaNYL citrate/PF 100 MCG/2 ML VIAL 50 MCG IVPUSH ×2 (12:32→12:42)
[2023-08-30] MEDS: LORazepam 0.5 MG TABLET PO (13:53)
[2023-08-30 15:20] LABS: Vancomycin Random 12.9 mcg/mL (15-20)
--- NOTE | 2023-08-30 15:36 | HE.PHANOTE ---
RE: VANCO Patients level came back at 12.9. Will continue with current dose of 1500 mg Q12H. predicted AUC 570. next draw 08/31 @1400
--- NOTE | 2023-08-30 15:54 | PM.OP ---
Brief Operative Note Date of Service: 08/30/23 Pre-op diagnosis: left fore arm compartment syndrome Post-op diagnosis: same Procedure: irrigation and debridement left forearm wound vac change left forearm Surgeon: Devang Long MD Anesthesia: GLMA Was an [employer] Pocket Machine Operator used for this Procedure?: Yes [employer] P[employer] Machine Operator: Mary Beth Billings Estimated blood loss (mL): 50 IV fluids (mL): 500 Pathology: none sent Condition: stable Disposition: PACU
[2023-08-31] VITALS (7 sets, daily range): BP systolic 106–128; BP diastolic 59–76; PULSE 107–122; RESP 18–20; TEMP 37–37.7; O2SAT 95–99
--- NOTE | 2023-08-31 | ECG_ITS ---
Test Reason : tachycardia Blood Pressure : / mmHG Vent. Rate : 127 BPM Atrial Rate : 127 BPM P-R Int : 132 ms QRS Dur : 076 ms QT Int : 290 ms P-R-T Axes : 042 040 -57 degrees QTc Int : 421 ms Sinus tachycardia Nonspecific T wave abnormality Abnormal ECG When compared with ECG of 16-AUG-2023 06:43, Nonspecific T wave abnormality, worse in Inferior leads Nonspecific T wave abnormality now evident in Anterolateral leads Heart rate has decreased Referred By: Ge Parisi Electronically Signed By:WILIAN ASHFORD MD
[2023-08-31] MEDS: HYDROmorphone HCl 2 MG TABLET 3 MG PO ×8 (00:17→20:45)
[2023-08-31] MEDS: 0.9 % Sodium Chloride Flush 3 ML SYRINGE IVFLUSH ×4 (00:17→23:03)
[2023-08-31] MEDS: LORazepam 0.5 MG TABLET PO ×2 (00:24→08:54)
[2023-08-31] MEDS: HYDROmorphone HCl 2 MG/ML VIAL 3 MG IVPUSH ×5 (02:33→17:29)
[2023-08-31] MEDS: vancomycin HCL 1,500 MG in 0.9 % Sodium Chloride 500 ML 333.33 MG IV (04:09)
[2023-08-31] MEDS: Piperacillin Sodium/Tazobactam 3.375 GM in 0.9 % Sodium Chloride 50 ML IV ×4 (06:09→23:19)
[2023-08-31] MEDS: Morphine Sulfate ER 15 MG TABLET.ER PO ×3 (06:37→23:02)
[2023-08-31] MEDS: carvediloL 3.125 MG TABLET PO ×2 (08:52→20:45)
[2023-08-31] MEDS: Docusate Sodium 100 MG CAPSULE PO (08:52)
[2023-08-31] MEDS: Gabapentin 100 MG CAPSULE 200 MG PO ×2 (08:52→20:45)
[2023-08-31] MEDS: Hydrocortisone 1 % Cream 28.35 GM TUBE 1 APPL TOPICAL (09:02)
[2023-08-31 10:39] LABS: Creatinine Clr Calc Pharmacy 122.4; Estimated Glomerular Filt Rate > 60
[2023-08-31] MEDS: Acetaminophen 325 MG TABLET 650 MG PO ×2 (12:22→20:51)
[2023-08-31 14:16] LABS: Vancomycin Random 17.5 mcg/mL (15-20)
--- NOTE | 2023-08-31 14:23 | HE.PHANOTE ---
RE: vanco Trough came back at 17.5mg/L. Changed dose to 1250mg Q12H with predicted AUC of 457, trough of 12.2. Next level to be drawn 09/01 @1400
--- NOTE | 2023-08-31 14:53 | HO.POSTANES ---
Post Anesthesia Evaluation Post Anesthesia Evaluation Date of Service: 08/31/23 Vital Signs: Vital Signs Temp Pulse Resp BP Pulse Ox O2 Del Method 08/31/23 12:00 99.0 F 118 H 20 114/70 95 Room Air 08/31/23 08:00 99.2 F 116 H 20 128/76 97 Room Air 08/31/23 04:11 98.7 F 107 H 20 112/67 95 Room Air Anesthesia: General Mental Status: Awake Pain Control: Satisfactory Nausea/Vomiting: None Hydration: Adequate Anesthesia-Related Issues: No Anes. Related Issues
[2023-08-31] MEDS: vancomycin HCL 1,250 MG in 0.9 % Sodium Chloride 250 ML 166.67 MG IV (15:58)
--- NOTE | 2023-08-31 16:36 | P.PNIM_ITS ---
Subjective Subjective Date of Service: 08/31/23 Interval History: seen and examined this morning follow up for compartment syndrome no overnight events low grade fever this morning no change in arm strength Review of Systems Review of Systems: Yes all other systems are reviewed and are negative Constitutional Constitutional: Denies chills Cardiovascular Cardiovascular: Denies chest pain and Denies dyspnea Respiratory Respiratory: Denies cough and Denies dyspnea Gastrointestinal Gastrointestinal: Denies abdominal pain Physical Exam 2 Vital Signs: Vital Signs: Last Vital Signs Temp 98.6 F 08/31/23 16:00 Pulse 114 H 08/31/23 16:00 Resp 20 08/31/23 16:00 BP 106/61 08/31/23 16:00 Pulse Ox 99 08/31/23 16:00 O2 Del Method Room Air 08/31/23 16:00 O2 Flow Rate 2 08/30/23 13:18 FiO2 35 08/19/23 07:58 BMI result Body Mass Index 29.3 Const: General: cooperative, comfortable, alert and awake Nutritional Appearance: average body habitus Orientation/consciousness: patient oriented x3 Resp: Effort & Inspection: normal respiratory effort, able to speak in complete sentences, no respiratory distress and no use of accessory muscles Cardio: Rate: tachycardic GI: Inspection: No distended Palpation (GI): Soft to palpation Skin: Other: wound vac in place LUE Neuro: General: patient oriented x3 Extrem: Other: not able to move left arm able to move b/l lower extremities and RUE Objective Data Active Medications Acetaminophen (Acetaminophen 325 Mg Tablet) 650 mg PO Q4H PRN PRN Reason: fever or pain Last Admin: 08/31/23 12:22 Dose: 650 mg Documented By: CLAUDIA Carvedilol (Carvedilol 3.125 Mg Tablet) 3.125 mg PO BID [facility]; Protocol Last Admin: 08/31/23 08:52 Dose: 3.125 mg Documented By: CLAUDIA Docusate Sodium (Docusate Sodium 100 Mg Capsule) 100 mg PO BID [facility] Last Admin: 08/31/23 08:52 Dose: 100 mg Documented By: CLAUDIA Gabapentin (Gabapentin 100 Mg Capsule) 200 mg PO BID [facility] Last Admin: 08/31/23 08:52 Dose: 200 mg Documented By: CLAUDIA Hydrocortisone (Hydrocortisone 1 % Cream 28.35 Gm Tube) 1 appl TOPICAL DAILY [facility]; Protocol Last Admin: 08/31/23 09:02 Dose: 1 appl Documented By: CLAUDIA Hydromorphone HCl (Hydromorphone Hcl 2 Mg Tablet) 3 mg PO Q3H [facility] Last Admin: 08/31/23 12:23 Dose: 3 mg Documented By: CLAUDIA Hydromorphone HCl (Hydromorphone Hcl 2 Mg/Ml Vial) 3 mg IVPUSH Q3H PRN; Protocol PRN Reason: severe pain Last Admin: 08/31/23 14:11 Dose: 3 mg Documented By: CLAUDIA Piperacillin Sod/Tazobactam (Sod 3.375 gm/ Sodium Chloride) 50 mls @ 100 mls/hr IV Q6H [facility] Last Infusion: 08/31/23 11:07 Dose: Infused Documented By: CLAUDIA Vancomycin HCl 1,250 mg/ (Sodium Chloride) 250 mls @ 166.667 mls/hr IV Q12H [facility] Last Admin: 08/31/23 15:58 Dose: 166.67 mls/hr Documented By: CLAUDIA Lactulose (Lactulose 20 Gm/30 Ml Solution) 20 gm PO TID [facility] Last Admin: 08/31/23 15:34 Dose: Not Given Documented By: CLAUDIA Non-Admin Reason: Patient Refused Lorazepam (Lorazepam 0.5 Mg Tablet) 0.5 mg PO Q8H PRN PRN Reason: Anxiety Last Admin: 08/31/23 08:54 Dose: 0.5 mg Documented By: CLAUDIA Morphine Sulfate (Morphine Sulfate Er 15 Mg Tablet.Er) 15 mg PO Q8H [facility] Last Admin: 08/31/23 15:32 Dose: 15 mg Documented By: CLAUDIA Ondansetron HCl (Ondansetron Hcl 4 Mg/2 Ml Vial) 4 mg IVPUSH ONCE PRN PRN Reason: Nausea and Vomiting Ondansetron HCl (Ondansetron Hcl 4 Mg/2 Ml Vial) 4 mg IVPUSH ONCE PRN PRN Reason: Nausea and Vomiting Oxycodone HCl (Oxycodone Hcl Immed Release 5 Mg Tablet) 10 mg PO ONCE PRN PRN Reason: Pain, Severe (Pain Scale 7-10) Pharmacy Consult (Consult Rx Vancomycin Dosing) 1 each MISCELLANE DAILY PRN PRN Reason: Consult order Sodium Chloride (0.9 % Sodium Chloride Flush 3 Ml Syringe) 3 ml IVFLUSH QSHIFT [facility] Last Admin: 08/31/23 16:01 Dose: 3 ml Documented By: CLAUDIA Labs 08/29/23 07:04 08/31/23 10:02 Labs: Laboratory Results - last 24 hr 08/31/23 08/31/23 10:02 13:49 Estim Creat Clear Calc 122.4 Estimated GFR > 60 Random Vancomycin 17.5 Assessment and Plan (1) Compartment syndrome of forearm: Status: Acute (2) Peroneal neuropathy at knee: Status: Acute (3) Brachial plexopathy: Status: Acute Plan 33 years old lady who presented with AMS from overdose developed Compartment, rhabdo, aspiration, CMP requring ICU admission and intubation with 4 surgeries to relieve the compartment. Compartment syndrome left forearm s/p multiple debridements Narcotics for pain ortho, vascular wound team following, wound vac in place concern for infection continue IV vanc, zosyn ID following repeat blood cultures pending fevers ?drug fever, follow up cultures, TLC removed Normocytic anemia likely component of blood loss from multiple surgeries will check H/H now follow CBC acute Peripheral neuropathy 2/2 compartment brachial plexopathy and peroneal neuropathy - likely secondary to prolonged compression neurology evaluation appreciated, prison follow up outpatient EMG studies continue PT/OT inpatient New onset acute Cardiomyopathy Echo on 08/17 showed 20% repeat Echo per ICU showed improvement echo consistent with takotsubo cardiomyopathy per cardiology cardiology rec starting carvedilol and consider KENNETH-I if able to tolerate Aspiration pneumonia completed course of IV Vanco and Meropenem Rhabdo toxic and mechanical secondary drug OD and prolonged downtime CPK [id number] on admission, trended down with IVF Elevated LFTs trending down Acute hypokalemia given replacement Constipation Laxatives Drug abuse Addiction team following New onset seizure Neurology eval one time incident, no need to treat and monitor for now DC Keppra and monitor DVT PPx SCDs - due to ongoing interventions attending - Dr. Winston reason for continued hospitalization: ongoing surgical interventions, fever Time Spent With Patient Time: Total time managing care of this patient today ____ minutes. Quality Stroke Does the patient have a stroke diagnosis?: No VTE Prior VTE?: No VTE Risk Level:: Medical - moderate - high VTE Device Contraindication: N/A - Device Ordered VTE Drug Contraindication: Treatment Not Indicated
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
[2023-08-31] MEDS: diphenhydrAMINE HCL 25 MG CAPSULE PO (17:28)
[2023-08-31 19:34] LABS: Mean Corpuscular HGB Conc 31.5 g/dl (31.0-35.0); Mean Corpuscular Hemoglobin 30.8 pg (27.0-33.0); Mean Platelet Volume 10.8 fL (9.4-12.3); Platelet Count 331 X10*3/uL (160-400); Red Blood Count 2.01 X10*6/uL (4.20-5.50); White Blood Count 5.6 X10*3/uL (4.8-10.8)
[2023-08-31 19:39] LABS: Hemoglobin 6.2 g/dl (12.0-16.0)
[2023-08-31 19:40] LABS: Hematocrit 19.7 % (37.0-47.0)
[2023-08-31 19:42] LABS: Anion Gap 15 (12-20); Blood Urea Nitrogen 6 mg/dL (9-16); Calcium 8.5 mg/dL (8.4-10.2); Carbon Dioxide 23 mmol/L (22-29); Chloride 102 mmol/L (96-108); Creatinine Clr Calc Pharmacy 115.8; Estimated Glomerular Filt Rate > 60; Glucose Random 98 mg/dL (60-115); Potassium 3.5 mmol/L (3.3-5.1); Sodium 136 mmol/L (135-145)
--- NOTE | 2023-08-31 19:44 | PM.EVENT ---
Event Note Date of Service: 08/31/23 Event Note: Was notified by nurse that patient's hemoglobin was 6.2. Will transfuse 1 unit PRBC. Repeat CBC in a.m. Time Spent With Patient Time: Total time managing care of this patient today ____ minutes.
[2023-09-01] VITALS (10 sets, daily range): BP systolic 102–131; BP diastolic 58–75; PULSE 96–121; RESP 16–20; TEMP 36.4–39.7; O2SAT 94–100
[2023-09-01] MEDS: HYDROmorphone HCl 2 MG TABLET 3 MG PO ×8 (00:32→21:25)
[2023-09-01] MEDS: Acetaminophen 325 MG TABLET 650 MG PO ×3 (02:20→18:06)
--- NOTE | 2023-09-01 02:25 | PC.NURSE ---
Pt H&H low this evening 6.[address] Parisi notified and ordered a unit of RBC's. Transfusion was completed at 0150. Pt noted to have a temp of 103.0, Dr. Parisi notified via [employer]. PRN Tylenol administered. No new orders at this time.
[2023-09-01] MEDS: vancomycin HCL 1,250 MG in 0.9 % Sodium Chloride 250 ML 166.6 MG IV ×2 (03:59→16:57)
[2023-09-01] MEDS: Piperacillin Sodium/Tazobactam 3.375 GM in 0.9 % Sodium Chloride 50 ML IV ×2 (06:07→11:12)
[2023-09-01] MEDS: Morphine Sulfate ER 15 MG TABLET.ER PO ×3 (06:42→23:49)
--- NOTE | 2023-09-01 07:11 | PM.PNORT ---
Subjective Subjective Date of Service: 08/31/23 Principal diagnosis: left brachial plexus neuropathy and compartment syndrome forearm Interval history: Laying in bed comfortably No overnight events Febrile Physical Exam Vital Signs: Vital Signs: Last Vital Signs Temp 101.9 F H 09/01/23 03:24 Pulse 121 H 09/01/23 03:24 Resp 20 09/01/23 03:24 BP 116/60 09/01/23 03:24 Pulse Ox 95 09/01/23 03:24 O2 Del Method Room Air 09/01/23 03:24 O2 Flow Rate 2 08/30/23 13:18 FiO2 35 08/19/23 07:58 BMI result Body Mass Index 29.3 Extrem: Other: wound vac holding suction no motion except triceps Procedures Date of Service Date of Service: 09/01/23 Progress Note: A&P Assessment and plan (1) Compartment syndrome of forearm: Status: Acute Assessment and Plan: Wound vac holding and intact Sling Pain management as appropriate Continue to monitor Wound vac in place Plan to change 09/01/23 Please note Date of Service 08/31/23 (2) Traumatic brachial plexopathy: Status: Acute Assessment and Plan: Likely traumatic brachial plexopathy with triceps intact Plan Will continue to observe Time Spent With Patient Time: Total time managing care of this patient today ____ minutes. Quality Stroke Does the patient have a stroke diagnosis?: No VTE Prior VTE?: No VTE Risk Level:: Medical - moderate - high VTE Device Contraindication: N/A - Device Ordered VTE Drug Contraindication: Treatment Not Indicated
[2023-09-01 07:29] LABS: Hematocrit 22.1 % (37.0-47.0); Hemoglobin 7.2 g/dl (12.0-16.0); Mean Corpuscular HGB Conc 32.6 g/dl (31.0-35.0); Mean Corpuscular Hemoglobin 31.2 pg (27.0-33.0); Mean Corpuscular Volume 95.7 fL (80.0-98.0); Platelet Count 334 X10*3/uL (160-400); Red Blood Count 2.31 X10*6/uL (4.20-5.50); Red Cell Distribution Width 13.2 % (11.0-16.0); White Blood Count 5.1 X10*3/uL (4.8-10.8)
[2023-09-01 07:38] LABS: Alanine Aminotransferase 26 U/L (0-31); Albumin Level 2.8 g/dL (3.5-5.0); Alkaline Phosphatase 42 U/L (39-117); Anion Gap 14 (12-20); Aspartate Amino Transferase 30 U/L (5-31); Bilirubin Direct 0.2 mg/dL (0.0-0.5); Bilirubin Total 0.7 mg/dL (0.0-1.0); Blood Urea Nitrogen 7 mg/dL (9-16); Calcium 8.2 mg/dL (8.4-10.2); Carbon Dioxide 21 mmol/L (22-29); Chloride 105 mmol/L (96-108); Estimated Glomerular Filt Rate > 60; Glucose Random 101 mg/dL (60-115); Potassium 3.5 mmol/L (3.3-5.1); Sodium 136 mmol/L (135-145); Total Protein 5.2 g/dL (6.5-8.0)
[2023-09-01] MEDS: Gabapentin 100 MG CAPSULE 200 MG PO ×2 (07:44→21:24)
[2023-09-01] MEDS: carvediloL 3.125 MG TABLET PO ×2 (07:45→21:30)
[2023-09-01] MEDS: 0.9 % Sodium Chloride Flush 3 ML SYRINGE IVFLUSH ×2 (07:45→16:11)
--- NOTE | 2023-09-01 08:11 | PM.PNORT ---
Subjective Subjective Date of Service: 09/01/23 Principal diagnosis: left brachial plexus neuropathy and compartment syndrome forearm Interval history: Laying in bed comfortably No overnight events Febrile Physical Exam Vital Signs: Vital Signs: Last Vital Signs Temp 101.9 F H 09/01/23 03:24 Pulse 121 H 09/01/23 03:24 Resp 20 09/01/23 03:24 BP 116/60 09/01/23 03:24 Pulse Ox 95 09/01/23 03:24 O2 Del Method Room Air 09/01/23 03:24 O2 Flow Rate 2 08/30/23 13:18 FiO2 35 08/19/23 07:58 BMI result Body Mass Index 29.3 Const: General: cooperative, healthy appearing and no acute distress Resp: Effort & Inspection: normal respiratory effort and able to speak in complete sentences Cardio: Rate: regular rate Peripheral pulses: Peripheral pulses 2+ throughout GI: Palpation (GI): Soft to palpation Skin: Lesions: no lesions Rashes: no rashes Extrem: Other: wound vac holding suction no motion except triceps Reports some dorsal sided forarm sensation Procedures Date of Service Date of Service: 09/01/23 Progress Note: A&P Assessment and plan (1) Compartment syndrome of forearm: Status: Acute Assessment and Plan: Wound vac holding and intact Sling as needed for comfort Pain management as appropriate Continue to monitor Wound vac changed at bedside - Patient tolerated well Wound vac with good suction after change No abscess or purulent discharge seen Red perfusing tissue seen (2) Traumatic brachial plexopathy: Status: Acute Assessment and Plan: Likely traumatic brachial plexopathy with triceps intact Plan Will continue to observe Time Spent With Patient Time: Total time managing care of this patient today ____ minutes. Quality Stroke Does the patient have a stroke diagnosis?: No VTE Prior VTE?: No VTE Risk Level:: Medical - moderate - high VTE Device Contraindication: N/A - Device Ordered VTE Drug Contraindication: Treatment Not Indicated
[2023-09-01 09:13] LABS: Lactic Acid 0.8 mmol/L (0.5-2.0)
[2023-09-01 10:52] LABS: Appearance Urine Cloudy; Color Urine Yellow; Glucose Urine UA Negative (Negative); Leukocyte Esterase Urine Small (1+) (Negative); Nitrite Urine Negative (Negative); UMIC TRIGGER UACC YES; Urine Blood Trace (Negative); Urine Ketones Negative (Negative); Urine Protein Negative (Neg-Trace)
[2023-09-01 11:07] LABS: Amphetamine Screen Urine Not Detected (Not Detect); Barbiturates, Urine Not Detected (Not Detect); Benzodiazepines Screen Urine Not Detected (Not Detect); Cannabinoid Screen Urine Not Detected (Not Detect); Cocaine Screen Urine Not Detected (Not Detect); Fentanyl, urine Not Detected (Not Detect); Opiate Screen Urine POSITIVE (Not Detect); Phencyclidine Screen Urine Not Detected (Not Detect)
[2023-09-01] MEDS: LORazepam 0.5 MG TABLET PO ×2 (11:11→21:56)
--- NOTE | 2023-09-01 11:42 | HO.PM.IMPN ---
Subjective Subjective Date of Service: 09/01/23 Interval History: seen and examined this morning follow up for compartment syndrome, LUE wound overnight had recurrent fever patient denies urinary symptoms, abdominal pain, cough, shortness of breath Review of Systems Review of Systems: Yes all other systems are reviewed and are negative Constitutional Constitutional: Denies chills and Denies fever(s) ENT Ears, Nose, Mouth, and Throat: Denies dizziness Cardiovascular Cardiovascular: Denies chest pain, Denies palpitations and Denies dyspnea Respiratory Respiratory: Denies cough and Denies dyspnea Gastrointestinal Gastrointestinal: Denies abdominal pain, Denies nausea and Denies vomiting Neurologic Neurologic: Denies dizziness Endocrine Endocrine: Denies palpitations Physical Exam Vital Signs: Vital Signs: Last Vital Signs Temp 103.4 F H 09/01/23 11:18 Pulse 119 H 09/01/23 11:18 Resp 16 09/01/23 08:00 BP 117/71 09/01/23 08:26 Pulse Ox 98 09/01/23 08:26 O2 Del Method Room Air 09/01/23 08:00 O2 Flow Rate 2 08/30/23 13:18 FiO2 35 08/19/23 07:58 BMI result Body Mass Index 29.3 Const: General: cooperative, comfortable, no acute distress, alert and awake Nutritional Appearance: average body habitus Orientation/consciousness: patient oriented x3 Resp: Effort & Inspection: normal respiratory effort, no respiratory distress and no use of accessory muscles Auscultation: clear to auscultation bilaterally Cardio: Rate: tachycardic GI: Inspection: No distended Palpation (GI): Soft to palpation and nontender Skin: Other: wound vac present left forearm, good seal Neuro: General: patient oriented x3 Extrem: Other: unable to move left arm. able to move other extremities Objective Data Active Medications Acetaminophen (Acetaminophen 325 Mg Tablet) 650 mg PO Q4H PRN PRN Reason: fever or pain Last Admin: 09/01/23 11:11 Dose: 650 mg Documented By: YANNI Carvedilol (Carvedilol 3.125 Mg Tablet) 3.125 mg PO BID [facility]; Protocol Last Admin: 09/01/23 07:45 Dose: 3.125 mg Documented By: YANNI Docusate Sodium (Docusate Sodium 100 Mg Capsule) 100 mg PO BID [facility] Last Admin: 09/01/23 07:49 Dose: Not Given Documented By: YANNI Non-Admin Reason: diarrhea Gabapentin (Gabapentin 100 Mg Capsule) 200 mg PO BID [facility] Last Admin: 09/01/23 07:44 Dose: 200 mg Documented By: YANNI Hydrocortisone (Hydrocortisone 1 % Cream 28.35 Gm Tube) 1 appl TOPICAL DAILY [facility]; Protocol Last Admin: 08/31/23 09:02 Dose: 1 appl Documented By: CLAUDIA Hydromorphone HCl (Hydromorphone Hcl 2 Mg Tablet) 3 mg PO Q3H [facility] Last Admin: 09/01/23 11:11 Dose: 3 mg Documented By: YANNI Hydromorphone HCl (Hydromorphone Hcl 2 Mg/Ml Vial) 3 mg IVPUSH Q3H PRN; Protocol PRN Reason: severe pain Last Admin: 08/31/23 17:29 Dose: 3 mg Documented By: CLAUDIA Piperacillin Sod/Tazobactam (Sod 3.375 gm/ Sodium Chloride) 50 mls @ 100 mls/hr IV Q6H [facility] Last Admin: 09/01/23 11:12 Dose: 100 mls/hr Documented By: YANNI Vancomycin HCl 1,250 mg/ (Sodium Chloride) 250 mls @ 166.667 mls/hr IV Q12H [facility] Last Infusion: 09/01/23 06:11 Dose: Infused Documented By: PHIL Lactulose (Lactulose 20 Gm/30 Ml Solution) 20 gm PO TID [facility] Last Admin: 09/01/23 07:45 Dose: Not Given Documented By: YANNI Non-Admin Reason: diarrhea Lorazepam (Lorazepam 0.5 Mg Tablet) 0.5 mg PO Q8H PRN PRN Reason: Anxiety Last Admin: 09/01/23 11:11 Dose: 0.5 mg Documented By: YANNI Morphine Sulfate (Morphine Sulfate Er 15 Mg Tablet.Er) 15 mg PO Q8H [facility] Last Admin: 09/01/23 06:42 Dose: 15 mg Documented By: PHIL Ondansetron HCl (Ondansetron Hcl 4 Mg/2 Ml Vial) 4 mg IVPUSH ONCE PRN PRN Reason: Nausea and Vomiting Ondansetron HCl (Ondansetron Hcl 4 Mg/2 Ml Vial) 4 mg IVPUSH ONCE PRN PRN Reason: Nausea and Vomiting Oxycodone HCl (Oxycodone Hcl Immed Release 5 Mg Tablet) 10 mg PO ONCE PRN PRN Reason: Pain, Severe (Pain Scale 7-10) Pharmacy Consult (Consult Rx Vancomycin Dosing) 1 each MISCELLANE DAILY PRN PRN Reason: Consult order Sodium Chloride (0.9 % Sodium Chloride Flush 3 Ml Syringe) 3 ml IVFLUSH [facility] Last Admin: 09/01/23 07:45 Dose: 3 ml Documented By: YANNI Labs 09/01/23 06:34 09/01/23 06:34 Labs: Laboratory Results - last 24 hr 08/31/23 08/31/23 08/31/23 13:49 19:20 19:57 MCV 98.0 MCH 30.8 MCHC 31.5 RDW 13.0 Plt Count 331 MPV 10.8 Absolute Nucleated RBC 0.000 Nucleated RBC % (auto) 0.0 Anion Gap 15 Estim Creat Clear Calc 115.8 Estimated GFR > 60 Random Glucose 98 Lactic Acid Calcium 8.5 Total Bilirubin Direct Bilirubin AST ALT Alkaline Phosphatase Total Protein Albumin Urine Color Urine Appearance Urine pH Ur Specific [place] Urine Protein Urine Glucose (UA) Urine Ketones Urine Blood Urine Nitrite Ur Leukocyte Esterase Random Vancomycin 17.5 Urine Opiates Screen Urine Fentanyl Screen Ur Barbiturates Screen Ur Phencyclidine Scrn Ur Amphetamines Screen U Benzodiazepines Scrn Urine Cocaine Screen U Marijuana (THC) Screen Blood Type B Positive Antibody Screen NEGATIVE Crossmatch See Detail 09/01/23 09/01/23 09/01/23 06:34 08:40 10:27 MCV 95.7 MCH 31.2 MCHC 32.6 RDW 13.2 Plt Count 334 MPV 11.0 Absolute Nucleated RBC 0.000 Nucleated RBC % (auto) 0.0 Anion Gap 14 Estim Creat Clear Calc 119.0 Estimated GFR > 60 Random Glucose 101 Lactic Acid 0.8 Calcium 8.2 L Total Bilirubin 0.7 Direct Bilirubin 0.2 AST 30 ALT 26 Alkaline Phosphatase 42 Total Protein 5.2 L Albumin 2.8 L Urine Color Yellow Urine Appearance Cloudy Urine pH 8.0 Ur Specific [place] 1.010 Urine Protein Negative Urine Glucose (UA) Negative Urine Ketones Negative Urine Blood Trace H Urine Nitrite Negative Ur Leukocyte Esterase Small (1+) H Random Vancomycin Urine Opiates Screen POSITIVE H Urine Fentanyl Screen Not Detected Ur Barbiturates Screen Not Detected Ur Phencyclidine Scrn Not Detected Ur Amphetamines Screen Not Detected U Benzodiazepines Scrn Not Detected Urine Cocaine Screen Not Detected U Marijuana (THC) Screen Not Detected Blood Type Antibody Screen Crossmatch Microbiology Microbiology Results: Microbiology 08/30/23 14:41 Blood Culture - Preliminary Blood - Venous No growth after 24 hours. 08/30/23 14:41 Blood Culture - Preliminary Blood - Venous No growth after 24 hours. Assessment and Plan (1) Compartment syndrome of forearm: Status: Acute (2) Brachial plexopathy: Status: Acute Plan This is a 33 year old lady who presented with AMS from overdose developed left arm Compartment syndrome, rhabdo, aspiration, CMP requiring ICU admission and intubation with 4 surgeries to relieve the compartment, downgraded to the medical floor 08/21 now with persistent fever. Compartment syndrome left forearm s/p multiple debridements ortho, vascular wound team following, wound vac in place. 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 - likely secondary to prolonged compression neurology evaluation appreciated, joint terminal attack controller follow up outpatient EMG studies continue PT/OT inpatient New onset acute Cardiomyopathy Echo on 08/17 showed 20% repeat Echo per ICU showed improvement echo consistent with takotsubo cardiomyopathy per cardiology cardiology rec starting carvedilol and consider KENNETH-I if able to tolerate, so far bp has been soft rec repeat ECHO 4 weeks from initial echo - due around 09/14 Aspiration pneumonia completed course of IV Vanco and Meropenem Rhabdo toxic and mechanical secondary drug OD and prolonged downtime CPK [id number] on admission, trended down with IVF Elevated LFTs LFTs have normalized Acute hypokalemia given replacement Constipation Laxatives Drug abuse Addiction team following New onset seizure Neurology eval one time incident, no need to treat and monitor for now DC Keppra and monitor DVT PPx- SCDs - due to ongoing interventions for left arm, anemia attending - Dr. Winston reason for continued hospitalization: ongoing surgical interventions, fever Time Spent With Patient Time: Total time managing care of this patient today ____ minutes. Quality Stroke Does the patient have a stroke diagnosis?: No VTE Prior VTE?: No VTE Risk Level:: Medical - moderate - high VTE Device Contraindication: N/A - Device Ordered VTE Drug Contraindication: Treatment Not Indicated
[2023-09-01 11:54] LABS: Bacteria Urine None Seen (None Seen); Hyaline Casts Urine 0-2 /LPF (0-2); RBC Urine >20 /HPF (0-2); Squamous Epithelial Cell Urine 0-2 /HPF (0-2); UACC Culture Trigger YES; WBC Urine 0-5 /HPF (0-5)
[2023-09-01] MEDS: iohexoL 350 MG/ML 100 ML INFUS..BTL IV (13:19)
--- NOTE | 2023-09-01 13:55 | MHC.CM.PN ---
EMR reviewed and per MD rounds pt not medically cleared for dc at this time. Met with patient and mother at bedside, who had questions about a potential transfer to [facility]. Per ortho, no interventions over the weekend, will be reassessed/potential OR on Monday and Dr. Long will continue to communicate with plastics at [facility]. Discussed with patient and mother, no further questions. CM will continue to follow.
--- NOTE | 2023-09-01 16:24 | PM.IDPN ---
Subjective Subjective Date of Service: 09/01/23 Critical Care Time (minutes): 15 Comment: patient getting CT scan of abdomen on Zosyn and Vancomycin cultures neg Objective Data Labs 09/01/23 06:34 09/01/23 06:34 Labs: Laboratory Results - last 24 hr 08/31/23 08/31/23 09/01/23 19:20 19:57 06:34 WBC 5.6 5.1 RBC 2.01 L 2.31 L Hgb 6.2 L* 7.2 L Hct 19.7 L* 22.1 L MCV 98.0 95.7 MCH 30.8 31.2 MCHC 31.5 32.6 RDW 13.0 13.2 Plt Count 331 334 MPV 10.8 11.0 Absolute Nucleated RBC 0.000 0.000 Nucleated RBC % (auto) 0.0 0.0 Sodium 136 136 Potassium 3.5 3.5 Chloride 102 105 Carbon Dioxide 23 21 L Anion Gap 15 14 BUN 6 L 7 L Creatinine 0.74 0.72 Estim Creat Clear Calc 115.8 119.0 Estimated GFR > 60 > 60 Random Glucose 98 101 Lactic Acid Calcium 8.5 8.2 L Total Bilirubin 0.7 Direct Bilirubin 0.2 AST 30 ALT 26 Alkaline Phosphatase 42 Total Protein 5.2 L Albumin 2.8 L Urine Color Urine Appearance Urine pH Ur Specific [place] Urine Protein Urine Glucose (UA) Urine Ketones Urine Blood Urine Nitrite Ur Leukocyte Esterase Urine RBC Urine WBC Ur Squamous Epith Cells Urine Bacteria Hyaline Casts Urine Opiates Screen Urine Fentanyl Screen Ur Barbiturates Screen Ur Phencyclidine Scrn Ur Amphetamines Screen U Benzodiazepines Scrn Urine Cocaine Screen U Marijuana (THC) Screen Blood Type B Positive Antibody Screen NEGATIVE Crossmatch See Detail 09/01/23 09/01/23 08:40 10:27 WBC RBC Hgb Hct MCV MCH MCHC RDW Plt Count MPV Absolute Nucleated RBC Nucleated RBC % (auto) Sodium Potassium Chloride Carbon Dioxide Anion Gap BUN Creatinine Estim Creat Clear Calc Estimated GFR Random Glucose Lactic Acid 0.8 Calcium Total Bilirubin Direct Bilirubin AST ALT Alkaline Phosphatase Total Protein Albumin Urine Color Yellow Urine Appearance Cloudy Urine pH 8.0 Ur Specific [place] 1.010 Urine Protein Negative Urine Glucose (UA) Negative Urine Ketones Negative Urine Blood Trace H Urine Nitrite Negative Ur Leukocyte Esterase Small (1+) H Urine RBC >20 H Urine WBC 0-5 Ur Squamous Epith Cells 0-2 Urine Bacteria None Seen Hyaline Casts 0-2 Urine Opiates Screen POSITIVE H Urine Fentanyl Screen Not Detected Ur Barbiturates Screen Not Detected Ur Phencyclidine Scrn Not Detected Ur Amphetamines Screen Not Detected U Benzodiazepines Scrn Not Detected Urine Cocaine Screen Not Detected U Marijuana (THC) Screen Not Detected Blood Type Antibody Screen Crossmatch Microbiology Microbiology Results: Microbiology 08/30/23 14:41 Blood - Venous Blood Culture - Preliminary No growth after 24 hours. 08/30/23 14:41 Blood - Venous Blood Culture - Preliminary No growth after 24 hours. 08/25/23 Unknown Arm Left Gram Stain - Final 08/25/23 Unknown Arm Left Routine Culture - Final No growth after 2 days 08/16/23 07:47 Blood - Venous Blood Culture - Final No growth after 5 days. 08/16/23 07:22 Blood - Venous Blood Culture - Final No growth after 5 days. 08/17/23 05:25 Arm Gram Stain - Final 08/17/23 05:25 Arm Routine Culture - Final No growth. 08/16/23 08:25 Cerebrospinal Fluid Gram Stain - Final 08/16/23 08:25 Cerebrospinal Fluid CSF Examination - Final 08/16/23 08:25 Cerebrospinal Fluid Fluid Description - Final 08/16/23 08:25 Cerebrospinal Fluid CSF Culture - Final No growth after 3 days. Physical Exam Vital Signs: Vital Signs: Last Vital Signs Temp 98.1 F 09/01/23 15:36 Pulse 105 H 09/01/23 15:36 Resp 20 09/01/23 15:36 BP 110/58 L 09/01/23 15:36 Pulse Ox 98 09/01/23 15:36 O2 Del Method Room Air 09/01/23 15:36 O2 Flow Rate 2 08/30/23 13:18 FiO2 35 08/19/23 07:58 BMI result Body Mass Index 29.3 Const: General: cooperative HEENT: Head: Yes normal to inspection Mouth: Normal oral and palatal mucosa present Resp: Effort & Inspection: normal respiratory effort Cardio: Rate: regular rate Rhythm: regular rhythm GI: Inspection: Yes normal to inspection Assessment and Plan Assessment and plan (1) Encephalopathy: Problem details: Fever possibly due to drug fever Arm looks unremarkable Need to check blood culture Status: Acute Plan Stop Zosyn Continue Vancomycin. CT Check Orthopedics?clot Await blood cultures. Time Spent With Patient Time: Total time managing care of this patient today ____ minutes.
[2023-09-01 16:34] LABS: Vancomycin Trough 13.1 mcg/mL (10.0-20.0)
--- NOTE | 2023-09-01 16:38 | HE.PHANOTE ---
RE: VANCO Patients level came back at 13.1. Level was pulled late, level could have been higher than 13.1. Will continue with current dose, renal function stable
--- NOTE | 2023-09-01 19:11 | PC.NURSE ---
wound vac canister changed- 350mL of sanguinous output
[2023-09-01] MEDS: diphenhydrAMINE HCL 50 MG/ML VIAL IVPUSH (21:24)
[2023-09-02] VITALS (8 sets, daily range): BP systolic 100–140; BP diastolic 57–69; PULSE 89–119; RESP 17–20; TEMP 36.7–39.4; O2SAT 94–99
[2023-09-02] MEDS: HYDROmorphone HCl 2 MG TABLET 3 MG PO ×7 (03:08→22:33)
[2023-09-02] MEDS: 0.9 % Sodium Chloride Flush 3 ML SYRINGE IVFLUSH ×3 (03:09→15:10)
[2023-09-02] MEDS: Acetaminophen 325 MG TABLET 650 MG PO ×3 (03:12→23:28)
[2023-09-02] MEDS: vancomycin HCL 1,250 MG in 0.9 % Sodium Chloride 250 ML 166.67 MG IV ×2 (03:14→15:11)
[2023-09-02 06:27] LABS: MANUAL DIFF FLAG NO
[2023-09-02 06:38] LABS: Basophils Percent Auto 0.7 % (0-2); Eosinophils Percent Auto 1.4 % (0-4); Hematocrit 23.4 % (37.0-47.0); Hemoglobin 7.6 g/dl (12.0-16.0); Imm Gran Abs Auto 0.01 X10*3/uL (0.00-0.03); Imm Gran Pct Auto 0.4 % (0.0-0.4); Lymphocytes Absolute Auto 1.1 X10*3/uL (1.2-4.9); Lymphocytes Percent Auto 38.4 % (20-40); Mean Corpuscular HGB Conc 32.5 g/dl (31.0-35.0); Mean Corpuscular Hemoglobin 31.1 pg (27.0-33.0); Mean Corpuscular Volume 95.9 fL (80.0-98.0); Mean Platelet Volume 10.6 fL (9.4-12.3); Monocytes Absolute Auto 0.2 X10*3/uL (0.1-1.2); Monocytes Percent Auto 7.2 % (2-11); Neutrophils Absolute Auto 1.5 x10*3/uL (2.0-8.3); Neutrophils Percent Auto 51.9 % (45-73); Platelet Count 325 X10*3/uL (160-400); Red Blood Count 2.44 X10*6/uL (4.20-5.50); Red Cell Distribution Width 13.2 % (11.0-16.0); White Blood Count 2.8 X10*3/uL (4.8-10.8)
[2023-09-02 06:44] LABS: Creatinine Clr Calc Pharmacy 111.3; Estimated Glomerular Filt Rate > 60
[2023-09-02] MEDS: Morphine Sulfate ER 15 MG TABLET.ER PO ×3 (07:23→22:18)
[2023-09-02 08:17] LABS: Anion Gap 12 (12-20)
[2023-09-02 08:19] LABS: Blood Urea Nitrogen 4 mg/dL (9-16); Calcium 8.5 mg/dL (8.4-10.2); Carbon Dioxide 21 mmol/L (22-29); Chloride 105 mmol/L (96-108); Glucose Random 94 mg/dL (60-115); Potassium 3.3 mmol/L (3.3-5.1); Sodium 135 mmol/L (135-145)
[2023-09-02] MEDS: Hydrocortisone 1 % Cream 28.35 GM TUBE 1 APPL TOPICAL (09:00)
[2023-09-02] MEDS: carvediloL 3.125 MG TABLET PO ×2 (09:05→22:19)
[2023-09-02] MEDS: Gabapentin 100 MG CAPSULE 200 MG PO ×2 (09:06→22:18)
--- NOTE | 2023-09-02 09:15 | PM.PNORT ---
Subjective Subjective Date of Service: 09/02/23 Principal diagnosis: left brachial plexus neuropathy and compartment syndrome forearm Interval history: Laying in bed comfortably No overnight events Febrile C/o diarrhea Physical Exam Vital Signs: Vital Signs: Last Vital Signs Temp 98.9 F 09/02/23 07:45 Pulse 110 H 09/02/23 07:45 Resp 18 09/02/23 07:45 BP 140/60 H 09/02/23 07:45 Pulse Ox 99 09/02/23 07:45 O2 Del Method Room Air 09/02/23 07:45 O2 Flow Rate 2 08/30/23 13:18 FiO2 35 08/19/23 07:58 BMI result Body Mass Index 29.3 Const: General: cooperative, healthy appearing and no acute distress Resp: Effort & Inspection: normal respiratory effort and able to speak in complete sentences Cardio: Rate: regular rate Peripheral pulses: Peripheral pulses 2+ throughout GI: Palpation (GI): Soft to palpation Skin: Lesions: no lesions Rashes: no rashes Extrem: Other: wound vac holding suction no motion except triceps Reports some dorsal sided forarm sensation Procedures Date of Service Date of Service: 09/02/23 Progress Note: A&P Assessment and plan (1) Compartment syndrome of forearm: Status: Acute Assessment and Plan: Wound vac holding and intact Sling as needed for comfort Pain management as appropriate Continue to monitor Wound vac changed at bedside - Patient tolerated well Wound vac with good suction after change No abscess or purulent discharge seen Red perfusing tissue seen Plan for possible OR Monday afternoon - NPO Midnight Monday (2) Traumatic brachial plexopathy: Status: Acute Assessment and Plan: Likely traumatic brachial plexopathy with triceps intact Plan Will continue to observe Time Spent With Patient Time: Total time managing care of this patient today ____ minutes. Quality Stroke Does the patient have a stroke diagnosis?: No VTE Prior VTE?: No VTE Risk Level:: Medical - moderate - high VTE Device Contraindication: N/A - Device Ordered VTE Drug Contraindication: Treatment Not Indicated
[2023-09-02] MEDS: LORazepam 0.5 MG TABLET PO ×2 (09:17→22:18)
[2023-09-02] MEDS: Loperamide HCl 2 MG CAPSULE PO (12:26)
--- NOTE | 2023-09-02 12:35 | P.PNIM_ITS ---
Subjective Subjective Date of Service: 09/02/23 Interval History: seen and examined this morning follow up for LUE compartment syndrome/brachial plexus neuropathy still with fever overnight had some diarrhea yesterday, better today no abdominal pain, shortness of breath, cough Review of Systems Review of Systems: Yes all other systems are reviewed and are negative Constitutional Constitutional: Denies chills and Denies fever(s) Cardiovascular Cardiovascular: Denies chest pain, Denies palpitations and Denies dyspnea Respiratory Respiratory: Denies cough and Denies dyspnea Gastrointestinal Gastrointestinal: Denies abdominal pain, Denies nausea and Denies vomiting Endocrine Endocrine: Denies palpitations Physical Exam 2 Vital Signs: Vital Signs: Last Vital Signs Temp 98.9 F 09/02/23 07:45 Pulse 110 H 09/02/23 07:45 Resp 18 09/02/23 07:45 BP 140/60 H 09/02/23 07:45 Pulse Ox 99 09/02/23 07:45 O2 Del Method Room Air 09/02/23 07:45 O2 Flow Rate 2 08/30/23 13:18 FiO2 35 08/19/23 07:58 BMI result Body Mass Index 29.3 Const: General: cooperative, comfortable, no acute distress, alert and awake Nutritional Appearance: average body habitus Orientation/consciousness: p atient oriented x3 Resp: Effort & Inspection: normal respiratory effort, able to speak in complete sentences, no respiratory distress and no use of accessory muscles A uscultation: clear to auscultation bilaterally Cardio: Rate: tachycardic GI: Inspection: No distended Palpation (GI): Soft to palpation and nontender Skin: Other: wound vac present left forearm, good seal; numerous sutures left forearm, no erythema Neuro: General: patient oriented x3 Extrem: Other: unable to move left arm. able to move other extremities Objective Data Active Medications Acetaminophen (Acetaminophen 325 Mg Tablet) 650 mg PO Q4H PRN PRN Reason: fever or pain Last Admin: 09/02/23 03:12 Dose: 650 mg Documented By: BRITTANY Carvedilol (Carvedilol 3.125 Mg Tablet) 3.125 mg PO BID [facility]; Protocol Last Admin: 09/02/23 09:05 Dose: 3.125 mg Documented By: ANDREINA Docusate Sodium (Docusate Sodium 100 Mg Capsule) 100 mg PO BID [facility] Last Admin: 09/02/23 09:15 Dose: Not Given Documented By: ANDREINA Non-Admin Reason: Patient Refused Gabapentin (Gabapentin 100 Mg Capsule) 200 mg PO BID [facility] Last Admin: 09/02/23 09:06 Dose: 200 mg Documented By: ANDERINA Hydrocortisone (Hydrocortisone 1 % Cream 28.35 Gm Tube) 1 appl TOPICAL DAILY [facility]; Protocol Last Admin: 09/02/23 09:00 Dose: 1 appl Documented By: ANDREINA Hydromorphone HCl (Hydromorphone Hcl 2 Mg Tablet) 3 mg PO Q3H [facility] Last Admin: 09/02/23 12:26 Dose: 3 mg Documented By: ANDREINA Hydromorphone HCl (Hydromorphone Hcl 2 Mg/Ml Vial) 3 mg IVPUSH Q3H PRN; Protocol PRN Reason: severe pain Last Admin: 08/31/23 17:29 Dose: 3 mg Documented By: CLAUDIA Piperacillin Sod/Tazobactam (Sod 3.375 gm/ Sodium Chloride) 50 mls @ 100 mls/hr IV Q6H [facility] Last Infusion: 09/01/23 12:28 Dose: Infused Documented By: YANNI Vancomycin HCl 1,250 mg/ (Sodium Chloride) 250 mls @ 166.667 mls/hr IV Q12H [facility] Last Infusion: 09/02/23 04:49 Dose: Infused Documented By: BRITTANY Cefazolin Sodium/Dextrose (Ancef) 2 gm in 50 mls @ 100 mls/hr IV PREOP ONE Stop: 09/04/23 15:18 Lactulose (Lactulose 20 Gm/30 Ml Solution) 20 gm PO TID [facility] Last Admin: 09/01/23 07:45 Dose: Not Given Documented By: YANNI Non-Admin Reason: diarrhea Lorazepam (Lorazepam 0.5 Mg Tablet) 0.5 mg PO Q8H PRN PRN Reason: Anxiety Last Admin: 09/02/23 09:17 Dose: 0.5 mg Documented By: ANDREINA Morphine Sulfate (Morphine Sulfate Er 15 Mg Tablet.Er) 15 mg PO Q8H [facility] Last Admin: 09/02/23 07:23 Dose: 15 mg Documented By: BRITTANY Ondansetron HCl (Ondansetron Hcl 4 Mg/2 Ml Vial) 4 mg IVPUSH ONCE PRN PRN Reason: Nausea and Vomiting Ondansetron HCl (Ondansetron Hcl 4 Mg/2 Ml Vial) 4 mg IVPUSH ONCE PRN PRN Reason: Nausea and Vomiting Oxycodone HCl (Oxycodone Hcl Immed Release 5 Mg Tablet) 10 mg PO ONCE PRN PRN Reason: Pain, Severe (Pain Scale 7-10) Pharmacy Consult (Consult Rx Vancomycin Dosing) 1 each MISCELLANE DAILY PRN PRN Reason: Consult order Sodium Chloride (0.9 % Sodium Chloride Flush 3 Ml Syringe) 3 ml IVFLUSH QSHIFT [facility] Last Admin: 09/02/23 09:15 Dose: 3 ml Documented By: ANDREINA Labs 09/02/23 06:23 09/02/23 06:23 Labs: Laboratory Results - last 24 hr 09/01/23 09/02/23 14:54 06:23 MCV 95.9 MCH 31.1 MCHC 32.5 RDW 13.2 Plt Count 325 MPV 10.6 Immature Gran % (Auto) 0.4 Neut % (Auto) 51.9 Lymph % (Auto) 38.4 [place] % (Auto) 7.2 Eos % (Auto) 1.4 Baso % (Auto) 0.7 Lymph # (Auto) 1.1 L [place] # (Auto) 0.2 Eos # (Auto) 0.0 Baso # (Auto) 0.0 Abs Immat Gran (auto) 0.01 Absolute Neuts (auto) 1.5 L Absolute Nucleated RBC 0.000 Nucleated RBC % (auto) 0.0 Anion Gap 12 Estim Creat Clear Calc 111.3 Estimated GFR > 60 Random Glucose 94 Calcium 8.5 Vancomycin Trough 13.1 Microbiology Microbiology Results: Microbiology 09/01/23 Unknown Urine Culture - Final Urine clean catch - Urine armas top No growth. 09/01/23 08:40 Blood Culture - Preliminary Blood - Venous No growth after 24 hours. 09/01/23 08:40 Blood Culture - Preliminary Blood - Venous No growth after 24 hours. 08/30/23 14:41 Blood Culture - Preliminary Blood - Venous No growth after 48 hours. 08/30/23 14:41 Blood Culture - Preliminary Blood - Venous No growth after 48 hours. Assessment and Plan (1) Fever: Status: Acute (2) Compartment syndrome of forearm: Status: Acute Plan This is a 33 year old lady who presented with AMS from overdose developed left arm Compartment syndrome, rhabdo, aspiration, CMP requiring ICU admission and intubation with 4 surgeries to relieve the compartment, downgraded to the medical floor 08/21 now with persistent fever. Compartment syndrome left forearm s/p fasciotomy, multiple debridements ortho, vascular, wound team following, wound vac in place. wound vac changed 09/02 with no abscess or purulent discharge seen. Plan to return to OR Monday, NPO monday at midnight continue IV vancomycin zosyn stopped due to likely cause of drug fever and leukopenia ID following pain control, start weaning narcotics repeat blood cultures negative to date fevers TLC removed blood cultures negative, UA negative no respiratory symptoms, CT scan of abdomen/pelvis negative LUE US negative for DVT, RLE US pending atelectasis on CT - IS started likely drug fever - zosyn stopped Normocytic anemia likely component of blood loss from multiple surgeries and acute illness s/p 1U RBCs 08/31 with improvement of H/H follow CBC Leukopenia likely result of zosyn zosyn stopped if ANC drops below 1000 will cover with cefepime if remains febrile acute 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 - likely secondary to prolonged compression neurology evaluation appreciated, 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 technician, recs appreciated outpatient EMG studies continue PT/OT inpatient New onset acute Cardiomyopathy Echo on 08/17 showed 20% repeat Echo per ICU showed improvement echo consistent with takotsubo cardiomyopathy per cardiology cardiology rec starting carvedilol and consider KENNETH-I if able to tolerate, so far bp has been soft rec repeat ECHO 4 weeks from initial echo - due around 09/14 Aspiration pneumonia completed course of IV Vanco and Meropenem Rhabdo toxic and mechanical secondary drug OD and prolonged downtime CPK [id number] on admission, trended down with IVF Elevated LFTs LFTs have normalized Acute hypokalemia resolved with replacement Constipation Laxatives prn; hold for diarrhea Drug abuse Addiction team following New onset seizure Neurology eval one time incident, no need to treat and monitor for now DC Keppra and monitor DVT PPx- SCDs - due to ongoing interventions for left arm, anemia attending - Dr. Wood reason for continued hospitalization: ongoing surgical interventions, fever Time Spent With Patient Time: Total time managing care of this patient today ____ minutes. Quality Stroke Does the patient have a stroke diagnosis?: No VTE Prior VTE?: No VTE Risk Level:: Medical - moderate - high VTE Device Contraindication: N/A - Device Ordered VTE Drug Contraindication: Treatment Not Indicated
[2023-09-02 14:23] LABS: Vancomycin Random 14.3 mcg/mL (15-20)
[2023-09-02] MEDS: diphenhydrAMINE HCL 25 MG CAPSULE PO (15:38)
[2023-09-03 03:34] VITALS: BP 105/50; PULSE 86; RESP 18; TEMP 37.1; O2SAT 99
[2023-09-03] MEDS: HYDROmorphone HCl 2 MG TABLET 3 MG PO ×7 (05:11→22:49)
[2023-09-03] MEDS: 0.9 % Sodium Chloride Flush 3 ML SYRINGE IVFLUSH ×3 (05:12→16:38)
[2023-09-03] MEDS: vancomycin HCL 1,250 MG in 0.9 % Sodium Chloride 250 ML 166.67 MG IV (05:13)
[2023-09-03] MEDS: Morphine Sulfate ER 15 MG TABLET.ER PO ×3 (06:43→22:49)
[2023-09-03 07:13] LABS: MANUAL DIFF FLAG NO
[2023-09-03 07:28] LABS: Basophils Percent Auto 0.5 % (0-2); Eosinophils Absolute Auto 0.2 X10*3/uL (0.0-0.4); Eosinophils Percent Auto 4.6 % (0-4); Hematocrit 25.8 % (37.0-47.0); Hemoglobin 8.3 g/dl (12.0-16.0); Imm Gran Abs Auto 0.02 X10*3/uL (0.00-0.03); Imm Gran Pct Auto 0.5 % (0.0-0.4); Lymphocytes Absolute Auto 1.9 X10*3/uL (1.2-4.9); Lymphocytes Percent Auto 48.8 % (20-40); Mean Corpuscular HGB Conc 32.2 g/dl (31.0-35.0); Mean Corpuscular Hemoglobin 31.2 pg (27.0-33.0); Mean Platelet Volume 10.9 fL (9.4-12.3); Monocytes Absolute Auto 0.2 X10*3/uL (0.1-1.2); Monocytes Percent Auto 5.1 % (2-11); Neutrophils Absolute Auto 1.6 x10*3/uL (2.0-8.3); Neutrophils Percent Auto 40.5 % (45-73); Platelet Count 303 X10*3/uL (160-400); Red Blood Count 2.66 X10*6/uL (4.20-5.50); Red Cell Distribution Width 13.3 % (11.0-16.0); White Blood Count 3.9 X10*3/uL (4.8-10.8)
[2023-09-03 07:46] LABS: Creatinine Clr Calc Pharmacy 122.4; Estimated Glomerular Filt Rate > 60
[2023-09-03 07:47] VITALS: BP 118/73; PULSE 107; RESP 20; TEMP 38.8; O2SAT 99
[2023-09-03] MEDS: Gabapentin 100 MG CAPSULE 200 MG PO ×2 (07:59→19:53)
[2023-09-03] MEDS: carvediloL 3.125 MG TABLET PO ×2 (07:59→19:53)
[2023-09-03] MEDS: Acetaminophen 325 MG TABLET 650 MG PO ×2 (07:59→13:45)
[2023-09-03] MEDS: LORazepam 0.5 MG TABLET PO ×2 (08:04→20:01)
--- NOTE | 2023-09-03 09:53 | PM.PNORT ---
Subjective Subjective Date of Service: 09/03/23 Principal diagnosis: left brachial plexus neuropathy and compartment syndrome forearm Interval history: Laying in bed comfortably No overnight events Febrile C/o diarrhea Wound vac functioning with appropriate suctioning Physical Exam Vital Signs: Vital Signs: Last Vital Signs Temp 101.9 F H 09/03/23 07:47 Pulse 107 H 09/03/23 07:47 Resp 20 09/03/23 07:47 BP 118/73 09/03/23 07:47 Pulse Ox 99 09/03/23 07:47 O2 Del Method Room Air 09/03/23 07:47 O2 Flow Rate 2 08/30/23 13:18 FiO2 35 08/19/23 07:58 BMI result Body Mass Index 29.3 Const: General: cooperative, healthy appearing and no acute distress Resp: Effort & Inspection: normal respiratory effort and able to speak in complete sentences Cardio: Rate: regular rate Peripheral pulses: Peripheral pulses 2+ throughout GI: Palpation (GI): Soft to palpation Skin: Lesions: no lesions Rashes: no rashes Extrem: Other: wound vac holding suction no motion except triceps Reports some dorsal sided forarm sensation Procedures Date of Service Date of Service: 09/03/23 Progress Note: A&P Assessment and plan (1) Compartment syndrome of forearm: Status: Acute Assessment and Plan: Wound vac holding and intact Sling as needed for comfort Pain management as appropriate Continue to monitor Wound vac changed at bedside - Patient tolerated well Wound vac with good suction after change No abscess or purulent discharge seen Red perfusing tissue seen Plan for possible OR Monday afternoon - NPO Midnight (2) Traumatic brachial plexopathy: Status: Acute Assessment and Plan: Likely traumatic brachial plexopathy with triceps intact Plan Will continue to observe Time Spent With Patient Time: Total time managing care of this patient today ____ minutes. Quality Stroke Does the patient have a stroke diagnosis?: No VTE Prior VTE?: No VTE Risk Level:: Medical - moderate - high VTE Device Contraindication: N/A - Device Ordered VTE Drug Contraindication: Treatment Not Indicated
[2023-09-03 10:53] VITALS: BP 105/65; PULSE 103; RESP 20; TEMP 37.4; O2SAT 96
--- NOTE | 2023-09-03 13:24 | HO.PM.IMPN ---
Subjective Subjective Date of Service: 09/03/23 Interval History: Complaining of itching at site of wound VAC, offers no acute complaints had fever 100.9 that resolved with Tylenol denies headache, no lightheadedness, no dizziness, complaining of diarrhea, no nausea no vomiting, no abdominal pain.. Review of Systems All other system reviewed and negative Physical Exam Vital Signs: Vital Signs: Last Vital Signs Temp 99.3 F 09/03/23 10:53 Pulse 103 H 09/03/23 10:53 Resp 20 09/03/23 10:53 BP 105/65 09/03/23 10:53 Pulse Ox 96 09/03/23 10:53 O2 Del Method Room Air 09/03/23 10:53 O2 Flow Rate 2 08/30/23 13:18 FiO2 35 08/19/23 07:58 BMI result Body Mass Index 29.3 Const: Other: General resting comfortably in no acute distress. Neck supple no JVD. CVS regular rate rhythm, Respiratory lungs clear to auscultation, no respiratory distress, no wheeze, no rhonchi. Gastrointestinal abdomen soft, non tender, bowel sounds audible, no guarding , no rigidity. Lower Extremities no edema. Left forearm wound VAC in place with no surrounding redness, sutures intact, decreased sensation and strength left forearm. Psych appropriate affect Objective Data Active Medications Acetaminophen (Acetaminophen 325 Mg Tablet) 650 mg PO Q4H PRN PRN Reason: fever or pain Last Admin: 09/03/23 07:59 Dose: 650 mg Documented By: EMELY Carvedilol (Carvedilol 3.125 Mg Tablet) 3.125 mg PO BID [facility]; Protocol Last Admin: 09/03/23 07:59 Dose: 3.125 mg Documented By: EMELY Docusate Sodium (Docusate Sodium 100 Mg Capsule) 100 mg PO BID [facility] Last Admin: 09/03/23 08:01 Dose: Not Given Documented By: EMELY Non-Admin Reason: Patient Refused Gabapentin (Gabapentin 100 Mg Capsule) 200 mg PO BID [facility] Last Admin: 09/03/23 07:59 Dose: 200 mg Documented By: EMELY Hydrocortisone (Hydrocortisone 1 % Cream 28.35 Gm Tube) 1 appl TOPICAL DAILY [facility]; Protocol Last Admin: 09/03/23 08:20 Dose: Not Given Documented By: EMELY Non-Admin Reason: Patient Refused Hydromorphone HCl (Hydromorphone Hcl 2 Mg/Ml Vial) 2 mg IVPUSH Q3H PRN; Protocol PRN Reason: severe pain Hydromorphone HCl (Hydromorphone Hcl 2 Mg Tablet) 3 mg PO Q3H [facility] Last Admin: 09/03/23 11:23 Dose: 3 mg Documented By: EMELY Vancomycin HCl 1,250 mg/ (Sodium Chloride) 250 mls @ 166.667 mls/hr IV Q12H [facility] Last Infusion: 09/03/23 06:47 Dose: Infused Documented By: BRITTANY Cefazolin Sodium/Dextrose (Ancef) 2 gm in 50 mls @ 100 mls/hr IV PREOP ONE Stop: 09/04/23 15:18 Lactulose (Lactulose 20 Gm/30 Ml Solution) 20 gm PO TID [facility] Last Admin: 09/01/23 07:45 Dose: Not Given Documented By: YANNI Non-Admin Reason: diarrhea Lorazepam (Lorazepam 0.5 Mg Tablet) 0.5 mg PO Q8H PRN PRN Reason: Anxiety Last Admin: 09/03/23 08:04 Dose: 0.5 mg Documented By: EMELY Morphine Sulfate (Morphine Sulfate Er 15 Mg Tablet.Er) 15 mg PO Q8H [facility] Last Admin: 09/03/23 06:43 Dose: 15 mg Documented By: BRITTANY Pharmacy Consult (Consult Rx Vancomycin Dosing) 1 each MISCELLANE DAILY PRN PRN Reason: Consult order Sodium Chloride (0.9 % Sodium Chloride Flush 3 Ml Syringe) 3 ml IVFLUSH QSHIFT [facility] Last Admin: 09/03/23 08:06 Dose: 3 ml Documented By: EMELY Labs 09/03/23 07:10 09/03/23 07:10 Labs: Laboratory Results - last 24 hr 09/02/23 09/03/23 13:47 07:10 MCV 97.0 MCH 31.2 MCHC 32.2 RDW 13.3 Plt Count 303 MPV 10.9 Immature Gran % (Auto) 0.5 H Neut % (Auto) 40.5 L Lymph % (Auto) 48.8 H [place] % (Auto) 5.1 Eos % (Auto) 4.6 H Baso % (Auto) 0.5 Lymph # (Auto) 1.9 [place] # (Auto) 0.2 Eos # (Auto) 0.2 Baso # (Auto) 0.0 Abs Immat Gran (auto) 0.02 Absolute Neuts (auto) 1.6 L Absolute Nucleated RBC 0.000 Nucleated RBC % (auto) 0.0 Estim Creat Clear Calc 122.4 Estimated GFR > 60 Random Vancomycin 14.3 L Microbiology Microbiology Results: Microbiology 09/01/23 08:40 Blood Culture - Preliminary Blood - Venous No growth after 48 hours. 09/01/23 08:40 Blood Culture - Preliminary Blood - Venous No growth after 48 hours. 09/01/23 Unknown Urine Culture - Final Urine clean catch - Urine armas top No growth. Assessment and Plan (1) Fever: Status: Acute (2) Compartment syndrome of forearm: Status: Acute Plan This is a 33 year old lady who presented with AMS from overdose developed left arm Compartment syndrome, rhabdo, aspiration, CMP requiring ICU admission and intubation with 4 surgeries to relieve the compartment, downgraded to the medical floor 08/21 now with persistent fever. Compartment syndrome left forearm s/p fasciotomy, multiple debridements ortho, vascular, wound team following, wound vac in place. wound vac changed 09/02 with no abscess or purulent discharge seen. Plan to return to OR Monday, NPO monday at midnight continue IV vancomycin zosyn stopped due to likely cause of drug fever and leukopenia ID following Good pain control, weaning narcotics , add Benadryl for itching fevers noted to have fever of 100.9 this morning improved with Tylenol. 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 - likely secondary to prolonged compression neurology evaluation appreciated, 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 by senior 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, recs appreciated outpatient EMG studies continue PT/OT inpatient New onset acute Cardiomyopathy Echo on 08/17 showed 20% repeat Echo per ICU showed improvement echo consistent with takotsubo cardiomyopathy per cardiology cardiology rec starting carvedilol and consider KENNETH-I if able to tolerate, so far bp has been soft rec repeat ECHO 4 weeks from initial echo - due around 09/14 Aspiration pneumonia completed course of IV Vanco and Meropenem Rhabdo toxic and mechanical secondary drug OD and prolonged downtime CPK 35,763 on admission, trended down with IVF Elevated LFTs LFTs have normalized Acute hypokalemia resolved with replacement Constipation Laxatives prn; hold for diarrhea Drug abuse Addiction team following New onset seizure Neurology eval one time incident, no need to treat and monitor for now DVT PPx- SCDs - due to ongoing interventions for left arm, anemia reason for continued hospitalization: ongoing surgical interventions, fever Time Spent With Patient Time: Total time managing care of this patient today ____ minutes. Quality Stroke Does the patient have a stroke diagnosis?: No VTE Prior VTE?: No VTE Risk Level:: Medical - moderate - high VTE Device Contraindication: N/A - Device Ordered VTE Drug Contraindication: Treatment Not Indicated
[2023-09-03] MEDS: diphenhydrAMINE HCL 25 MG CAPSULE PO (13:46)
[2023-09-03 14:14] LABS: Vancomycin Random 13.4 mcg/mL (15-20)
[2023-09-03 15:34] VITALS: BP 115/70; PULSE 104; RESP 20; TEMP 38.2; O2SAT 95
[2023-09-03] MEDS: vancomycin HCL 1,250 MG in 0.9 % Sodium Chloride 250 ML 250 MG IV (16:23)
[2023-09-03 19:33] VITALS: BP 124/76; PULSE 134; RESP 20; TEMP 39.6; O2SAT 92
--- NOTE | 2023-09-03 19:42 | PC.NURSE ---
oral temp 103.2, Hr 130 , MD Parisi notified
--- NOTE | 2023-09-03 19:50 | PC.NURSE ---
Blood cultures and Tylenol Iv for a tepm 103.2
[2023-09-03] MEDS: Acetaminophen 1,000 MG/100 ML PIGGYBACK 400 MG IV (19:58)
[2023-09-04] VITALS (9 sets, daily range): BP systolic 97–117; BP diastolic 50–69; PULSE 96–120; RESP 18–20; TEMP 36.1–39.6; O2SAT 94–98
[2023-09-04] MEDS: 0.9 % Sodium Chloride Flush 3 ML SYRINGE IVFLUSH ×4 (00:45→22:34)
[2023-09-04] MEDS: diphenhydrAMINE HCL 25 MG CAPSULE PO ×3 (00:53→14:43)
[2023-09-04] MEDS: HYDROmorphone HCl 2 MG TABLET 3 MG PO ×4 (00:53→11:21)
[2023-09-04] MEDS: Acetaminophen 325 MG TABLET 650 MG PO ×2 (03:48→08:02)
[2023-09-04] MEDS: vancomycin HCL 1,250 MG in 0.9 % Sodium Chloride 250 ML 166.67 MG IV (03:50)
[2023-09-04] MEDS: Morphine Sulfate ER 15 MG TABLET.ER PO ×2 (06:41→14:43)
[2023-09-04 07:48] LABS: Creatinine Clr Calc Pharmacy 108.5; Estimated Glomerular Filt Rate > 60
[2023-09-04] MEDS: carvediloL 3.125 MG TABLET PO (08:15)
[2023-09-04] MEDS: Gabapentin 100 MG CAPSULE 200 MG PO (08:16)
[2023-09-04] MEDS: Ibuprofen 400 MG TABLET PO (13:01)
[2023-09-04 14:59] LABS: Vancomycin Random 15.1 mcg/mL (15-20)
--- NOTE | 2023-09-04 15:40 | MHC.CM.PN ---
Patient is not yet medically cleared for dc. [facility] continues to follow.
[2023-09-04] MEDS: Doxycycline Hyclate 100 MG in 0.9 % Sodium Chloride 250 ML 166.67 MG IV (15:59)
--- NOTE | 2023-09-04 18:46 | HO.PM.IMPN ---
Subjective Subjective Date of Service: 09/05/23 Interval History: NPO for left forearm wound irrigation and debridement, being followed for left upper extremity compartment syndrome and brachial plexus neuropathy continue to have intermittent fevers, denies nausea, vomiting, abdominal pain, no new cough, no shortness of breath, no urinary symptoms, complaining of itching using Benadryl as needed. Review of Systems all other systems are reviewed and negative. Physical Exam Vital Signs: Vital Signs: Last Vital Signs Temp 97.5 F 09/04/23 15:29 Pulse 96 09/04/23 15:29 Resp 18 09/04/23 15:29 BP 102/61 09/04/23 15:29 Pulse Ox 97 09/04/23 15:29 O2 Del Method Room Air 09/04/23 15:29 O2 Flow Rate 2 08/30/23 13:18 FiO2 35 08/19/23 07:58 BMI result Body Mass Index 29.3 Const: Other: General resting comfortably in no acute distress. Neck supple no JVD. CVS regular rate rhythm, Respiratory lungs clear to auscultation, no respiratory distress, no wheeze, no rhonchi. Gastrointestinal abdomen soft, non tender, bowel sounds audible, no guarding , no rigidity. Lower Extremities no edema. Left forearm wound VAC in place with no surrounding redness, sutures intact, decreased sensation and strength left forearm. Psych appropriate affect Objective Data Active Medications Acetaminophen (Acetaminophen 325 Mg Tablet) 650 mg PO Q4H PRN PRN Reason: fever or pain Last Admin: 09/04/23 08:02 Dose: 650 mg Documented By: JEAN Carvedilol (Carvedilol 3.125 Mg Tablet) 3.125 mg PO BID [facility]; Protocol Last Admin: 09/04/23 08:15 Dose: 3.125 mg Documented By: JEAN Diphenhydramine HCl (Diphenhydramine Hcl 25 Mg Capsule) 25 mg PO Q6H PRN PRN Reason: itching Last Admin: 09/04/23 14:43 Dose: 25 mg Documented By: JEAN Docusate Sodium (Docusate Sodium 100 Mg Capsule) 100 mg PO BID [facility] Last Admin: 09/04/23 08:09 Dose: Not Given Documented By: JEAN Non-Admin Reason: Patient Refused Gabapentin (Gabapentin 100 Mg Capsule) 200 mg PO BID [facility] Last Admin: 09/04/23 08:16 Dose: 200 mg Documented By: JEAN Hydrocortisone (Hydrocortisone 1 % Cream 28.35 Gm Tube) 1 appl TOPICAL DAILY [facility]; Protocol Last Admin: 09/04/23 08:16 Dose: Not Given Documented By: JEAN Non-Admin Reason: Patient Refused Hydromorphone HCl (Hydromorphone Hcl 2 Mg/Ml Vial) 2 mg IVPUSH Q3H PRN; Protocol PRN Reason: severe pain Hydromorphone HCl (Hydromorphone Hcl 2 Mg Tablet) 3 mg PO Q3H [facility] Last Admin: 09/04/23 14:56 Dose: Not Given Documented By: AGUILA Non-Admin Reason: last dose given late Doxycycline Hyclate 100 mg/ (Sodium Chloride) 250 mls @ 166.67 mls/hr IV Q12H [facility] Last Infusion: 09/04/23 17:37 Dose: Infused Documented By: AGUILA Lactulose (Lactulose 20 Gm/30 Ml Solution) 20 gm PO TID [facility] Last Admin: 09/01/23 07:45 Dose: Not Given Documented By: YANNI Non-Admin Reason: diarrhea Lorazepam (Lorazepam 0.5 Mg Tablet) 0.5 mg PO Q8H PRN PRN Reason: Anxiety Last Admin: 09/03/23 20:01 Dose: 0.5 mg Documented By: GARCÍA Morphine Sulfate (Morphine Sulfate Er 15 Mg Tablet.Er) 15 mg PO Q8H [facility] Last Admin: 09/04/23 14:43 Dose: 15 mg Documented By: JEAN Sodium Chloride (0.9 % Sodium Chloride Flush 3 Ml Syringe) 3 ml IVFLUSH QSHIFT [facility] Last Admin: 09/04/23 16:09 Dose: 3 ml Documented By: AGUILA Labs 09/05/23 08:10 09/05/23 08:10 Labs: Laboratory Results - last 24 hr 09/04/23 09/04/23 06:32 14:34 Hold Purple Top SEE NOTE Estim Creat Clear Calc 108.5 Estimated GFR > 60 Random Vancomycin 15.1 Microbiology Microbiology Results: Microbiology 08/30/23 14:41 Blood Culture - Final Blood - Venous No growth after 5 days. 08/30/23 14:41 Blood Culture - Final Blood - Venous No growth after 5 days. Assessment and Plan (1) Fever: Status: Acute (2) Compartment syndrome of forearm: Status: Acute Plan This is a 33 year old lady who presented with AMS from overdose developed left arm Compartment syndrome, rhabdo, aspiration, CMP requiring ICU admission and intubation with 4 surgeries to relieve the compartment, downgraded to the medical floor 08/21 now with persistent fever. Compartment syndrome left forearm s/p fasciotomy, multiple debridements ortho, vascular, wound team following, wound vac in place. wound vac changed 09/02 with no abscess or purulent discharge seen. Plan to return to OR today on IV vancomycin, zosyn stopped due to likely cause of drug fever and leukopenia. Spoke with ID today she recommend to DC IV vanco as well, due to concern for drug fever and place patient on IV doxycycline. Good pain control, weaning narcotics , add Benadryl for itching fevers Persistent recurrent fevers since 08/29. TLC removed blood cultures negative, UA negative, urine culture 09/01 neg- no respiratory symptoms, CT scan of abdomen/pelvis negative 09/01 LUE US negative for DVT, RLE US negative atelectasis on CT - encourage incentive spirometry Blood cultures 09/03 negative zosyn stopped for concern of drug fever patient continued to have fever case discussed with ID she recommend to DC vancomycin and place patient on doxycycline Differential diagnosis drug fevers/atelectasis/deep muscle injury Normocytic anemia likely component of blood loss from multiple surgeries and acute illness s/p 1U RBCs 08/31 with improvement of H/H, follow CBC at a.m. Leukopenia likely result of zosyn, WBC improving acute 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 - likely secondary to prolonged compression neurology evaluation appreciated, alf follow up seen by industrial relations representative, recs appreciated outpatient EMG studies continue PT/OT inpatient New onset acute Cardiomyopathy Echo on 08/17 showed 20% repeat Echo per ICU showed improvement echo consistent with takotsubo cardiomyopathy per cardiology cardiology rec starting carvedilol and consider KENNETH-I if able to tolerate, so far bp has been soft rec repeat ECHO 4 weeks from initial echo - due around 11/ Aspiration pneumonia completed course of IV Vanco and Meropenem Rhabdo toxic and mechanical secondary drug OD and prolonged downtime CPK [id number] on admission, trended down with IVF Elevated LFTs LFTs have normalized Acute hypokalemia resolved with replacement Constipation Laxatives prn; hold for diarrhea Drug abuse Addiction team following New onset seizure Neurology eval one time incident, no need to treat and monitor for now DVT PPx- SCDs - due to ongoing interventions for left arm, anemia reason for continued hospitalization: ongoing surgical interventions, fever Time Spent With Patient Time: Total time managing care of this patient today ____ minutes. Quality Stroke Does the patient have a stroke diagnosis?: No VTE Prior VTE?: No VTE Risk Level:: Medical - moderate - high VTE Device Contraindication: N/A - Device Ordered VTE Drug Contraindication: Treatment Not Indicated
[2023-09-04] MEDS: HYDROmorphone HCl 2 MG/ML VIAL IVPUSH (22:30)
[2023-09-05] VITALS (16 sets, daily range): BP systolic 93–121; BP diastolic 54–78; PULSE 83–115; RESP 16–22; TEMP 36.4–38.2; O2SAT 95–100
[2023-09-05] MEDS: HYDROmorphone HCl 2 MG/ML VIAL IVPUSH ×5 (01:37→21:57)
[2023-09-05] MEDS: Doxycycline Hyclate 100 MG in 0.9 % Sodium Chloride 250 ML 166.67 MG IV (03:47)
[2023-09-05 06:50] LABS: Creatinine Clr Calc Pharmacy 117.4; Estimated Glomerular Filt Rate > 60
[2023-09-05] MEDS: 0.9 % Sodium Chloride Flush 3 ML SYRINGE IVFLUSH ×3 (07:41→23:59)
[2023-09-05] MEDS: Acetaminophen 325 MG TABLET 650 MG PO (07:41)
[2023-09-05] MEDS: diphenhydrAMINE HCL 25 MG CAPSULE PO (07:41)
[2023-09-05] MEDS: Morphine Sulfate ER 15 MG TABLET.ER PO ×3 (07:41→23:00)
[2023-09-05 08:34] LABS: Hematocrit 21.5 % (37.0-47.0); Hemoglobin 7.1 g/dl (12.0-16.0); Mean Corpuscular Hemoglobin 30.5 pg (27.0-33.0); Mean Corpuscular Volume 92.3 fL (80.0-98.0); Mean Platelet Volume 11.2 fL (9.4-12.3); Platelet Count 258 X10*3/uL (160-400); Red Blood Count 2.33 X10*6/uL (4.20-5.50); Red Cell Distribution Width 13.1 % (11.0-16.0); White Blood Count 4.9 X10*3/uL (4.8-10.8)
[2023-09-05] MEDS: Gabapentin 100 MG CAPSULE 200 MG PO ×2 (08:47→20:25)
[2023-09-05] MEDS: carvediloL 3.125 MG TABLET PO (08:48)
[2023-09-05 09:05] LABS: Anion Gap 12 (12-20); Blood Urea Nitrogen 9 mg/dL (9-16); Calcium 8.6 mg/dL (8.4-10.2); Carbon Dioxide 21 mmol/L (22-29); Chloride 104 mmol/L (96-108); Creatinine Clr Calc Pharmacy 122.4; Estimated Glomerular Filt Rate > 60; Glucose Random 85 mg/dL (60-115); Potassium 3.3 mmol/L (3.3-5.1); Sodium 134 mmol/L (135-145)
[2023-09-05 09:46] LABS: HIV AB/AG Nonreactive (Nonreactive); HIV Num 1 0.05 S/CO (0.00-0.99)
[2023-09-05] MEDS: LORazepam 0.5 MG TABLET PO ×2 (09:55→23:58)
--- NOTE | 2023-09-05 12:01 | PM.PNORT ---
Subjective Subjective Date of Service: 09/05/23 Principal diagnosis: left brachial plexus neuropathy and compartment syndrome forearm Interval history: no complaints febrile to 101 overnight Physical Exam Vital Signs: Vital Signs: Last Vital Signs Temp 99.7 F 09/05/23 11:08 Pulse 84 09/05/23 11:08 Resp 18 09/05/23 11:08 BP 111/57 L 09/05/23 11:08 Pulse Ox 96 09/05/23 11:08 O2 Del Method Room Air 09/05/23 11:08 O2 Flow Rate 2 08/30/23 13:18 FiO2 35 08/19/23 07:58 BMI result Body Mass Index 29.3 Extrem: Other: left forearm wound vac holding suction arm and forearm soft Procedures Date of Service Date of Service: 09/05/23 Progress Note: A&P Assessment and plan (1) Brachial plexopathy: Status: Acute (2) Compartment syndrome of forearm: Status: Acute Assessment and Plan: Stable with no motor function sensation improving over dorsum of hand but dense numbness over volar forearm TO OR today with irrigation and debridement Time Spent With Patient Time: Total time managing care of this patient today ____ minutes. Quality Stroke Does the patient have a stroke diagnosis?: No VTE Prior VTE?: No VTE Risk Level:: Medical - moderate - high VTE Device Contraindication: N/A - Device Ordered VTE Drug Contraindication: Treatment Not Indicated
--- NOTE | 2023-09-05 12:08 | MHC.SHP ---
Pre-Procedural Eval Section A Date of Service: 09/05/23 The patient is an INPATIENT: Yes Changes since office visit: No Cold of Flu in the past 2 weeks, No New Medical Problems, No Changes in Medication and No Patient answered all questions The History & Physical has been completed within 30 days and I have reviewed it.: Yes Section B Chief Complaint: weakness Allergies: Allergies Allergy/AdvReac Type Severity Reaction Status Date / Time No Known Allergies Allergy Verified 04/24/23 13:48 Plan I have reviewed the history and physical and performed a pertinent physical examination on my patient. No changes have occurred unless specified. Time Spent With Patient Time: Total time managing care of this patient today ____ minutes.
--- NOTE | 2023-09-05 13:02 | HO.ANESPROP2 ---
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) Brachial plexopathy (Acute) Opioid use disorder (Acute) Cocaine use disorder (Acute) Cardiomyopathy (Acute) Encephalopathy (Acute) Traumatic brachial plexopathy (Acute) Compartment syndrome of forearm (Acute) Secondary rhabdomyolysis (Acute) Aspiration pneumonia (Acute) Seizure cerebral (Acute) Secondary nonischemic congestive cardiomyopathy (Acute) 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 (Acute) Pneumonia involving left lung (Acute) Rhabdomyolysis (Acute) Troponin I above reference range (Acute) Acidosis, lactic (Acute) Acute renal failure (Acute) Fever (Acute) Altered mental status (Acute) Substance abuse (Acute) Upper respiratory tract infection (Acute) Flank pain (Acute) Dysuria (Acute) Wheezing (Acute) Respiratory infection (Acute) Cough (Acute) Past Medical History Medical History Substance abuse Family History Family history of problems with anesthesia: No Surgical History History of Problems with Anesthesia: No Social History Social History Household Members: Family and Children Household Members Other:: Parents, siblings, son Housing: House Do you presently have visiting nurse or other home services: No Unable to assess alcohol history related to: Unable to respond Alcohol intake: current Alcohol intake frequency: 0-2 drinks per day Patient Tobacco Use Status: Current everyday Tobacco user Tobacco use type: Cigarette Use of substances other than those prescribed or required for medical reasons: Yes Substance Use Type: Heroin Substance Use Frequency: Occasionally Last Used Substance: Weeks (ago) Currently Displaying Signs/Symptoms of Drug Intoxication Withdrawal: No Have you been hit, kicked, punched, or otherwise hurt by someone within the past year? If so, by whom?: No Do you feel safe in your current relationship?: No Current Relationship Is there a partner from a previous relationship who is making you feel unsafe now?: No Are you made to feel afraid or neglected: No Are you DNR?: No Advance Directives: No Advance Directives Information Provided: No Advance Directives on File: No Do you have thoughts of harming others: None Do you have a plan to hurt others: No Plan Recently lost weight without trying: No How much weight loss: Not applicable Eating poorly because of decreased appetite: No Nutrition screen score: 0 Nutrition Risks: No Nutritional Risk Patient : No : No Poor oral hygiene: No Meds Allergies Allergy/AdvReac Type Severity Reaction Status Date / Time No Known Allergies Allergy Verified 04/24/23 13:48 Active Medications: Current Medications Acetaminophen (Acetaminophen 325 Mg Tablet) 650 mg PO Q4H PRN PRN Reason: fever or pain Last Admin: 09/05/23 07:41 Dose: 650 mg Acetaminophen (Acetaminophen Supp 650 Mg Supp.Rect) 650 mg UT Q4H PRN PRN Reason: Fever Carvedilol (Carvedilol 3.125 Mg Tablet) 3.125 mg PO BID [facility]; Protocol Last Admin: 09/05/23 08:48 Dose: 3.125 mg Diphenhydramine HCl (Diphenhydramine Hcl 25 Mg Capsule) 25 mg PO Q6H PRN PRN Reason: itching Last Admin: 09/05/23 07:41 Dose: 25 mg Docusate Sodium (Docusate Sodium 100 Mg Capsule) 100 mg PO BID JEANINE Last Admin: 09/05/23 07:39 Dose: Not Given Gabapentin (Gabapentin 100 Mg Capsule) 200 mg PO BID [facility] Last Admin: 09/05/23 08:47 Dose: 200 mg Hydrocortisone (Hydrocortisone 1 % Cream 28.35 Gm Tube) 1 appl TOPICAL DAILY [facility]; Protocol Last Admin: 09/05/23 07:37 Dose: Not Given Hydromorphone HCl (Hydromorphone Hcl 2 Mg/Ml Vial) 2 mg IVPUSH Q3H PRN; Protocol PRN Reason: severe pain Last Admin: 09/05/23 08:47 Dose: 2 mg Hydromorphone HCl (Hydromorphone Hcl 2 Mg Tablet) 3 mg PO Q3H JEANINE Last Admin: 09/05/23 11:37 Dose: Not Given Doxycycline Hyclate 100 mg/ (Sodium Chloride) 250 mls @ 166.67 mls/hr IV Q12H JEANINE Last Infusion: 09/05/23 10:32 Dose: Infused Lactulose (Lactulose 20 Gm/30 Ml Solution) 20 gm PO TID JEANINE Last Admin: 09/01/23 07:45 Dose: Not Given Lorazepam (Lorazepam 0.5 Mg Tablet) 0.5 mg PO Q8H PRN PRN Reason: Anxiety Last Admin: 09/05/23 09:55 Dose: 0.5 mg Morphine Sulfate (Morphine Sulfate Er 15 Mg Tablet.Er) 15 mg PO Q8H [facility] Last Admin: 09/05/23 07:41 Dose: 15 mg Sodium Chloride (0.9 % Sodium Chloride Flush 3 Ml Syringe) 3 ml IVFLUSH QSHIFT [facility] Last Admin: 09/05/23 07:41 Dose: 3 ml Home Medications Medication Instructions Recorded Confirmed Last Taken Type No Known Home Meds 08/16/23 08/16/23 Unknown History Exam Exam Date and Time: September 05, 2023 1302 Height,Weight and Vital Signs: Height 5 ft 6 in Weight 82.3 kg Last Vital Signs Temp 99.7 F 09/05/23 11:08 Pulse 84 09/05/23 11:08 Resp 18 09/05/23 11:08 BP 111/57 L 09/05/23 11:08 Pulse Ox 96 09/05/23 11:08 O2 Del Method Room Air 09/05/23 11:08 O2 Flow Rate 2 08/30/23 13:18 FiO2 35 08/19/23 07:58 Pertinent Lab Results Pertinent Lab Results: Laboratory Tests 08/16/23 08/16/23 08/16/23 07:04 07:11 08:22 WBC 13.7 H RBC 5.02 D Hgb 16.0 D Hct 48.3 H D MCV 96.2 MCH 31.9 MCHC 33.1 RDW 13.0 Plt Count 373 D MPV 10.7 Immature Gran % (Auto) 1.4 H Neut % (Auto) 76.3 H Lymph % (Auto) 15.0 L Stearns % (Auto) 7.1 Eos % (Auto) 0.0 Baso % (Auto) 0.2 Lymph # (Auto) 2.1 Stearns # (Auto) 1.0 Eos # (Auto) 0.0 Baso # (Auto) 0.0 Abs Immat Gran (auto) 0.19 H Absolute Neuts (auto) 10.5 H Absolute Nucleated RBC 0.020 H Nucleated RBC % (auto) 0.1 Smear Tech's Comments Hold Purple Top SEE NOTE PT INR APTT Hold Blue Top SEE NOTE O2 Saturation 99.0 ABG pH at Pt Temp 7.37 ABG pCO2 at Pt Temp 23 L ABG pO2 at Pt Temp 199 H ABG HCO3 14 L ABG Base Excess (Actual) -9.1 VBG pH VBG pCO2 VBG pO2 VBG HCO3 VBG O2 Saturation VBG Base Excess Sodium 139 Potassium 5.7 H D Chloride 106 Carbon Dioxide 18 L Anion Gap 21 H BUN 30 H Creatinine 2.13 H Estim Creat Clear Calc 40.0 Estimated GFR 27 POC Glucose 123 H Random Glucose 119 H Fasting Glucose Lactic Acid 4.3 H* Lactic Acid F/U @ 2Hr Lactic Acid F/U @ 4Hr Calcium 9.6 Phosphorus Magnesium Total Bilirubin 0.4 Direct Bilirubin 0.2 AST 344 H ALT 114 H Alkaline Phosphatase 75 Total Creatine Kinase 42443 H Troponin I High Sens 346.8 H* Total Protein 8.2 H Albumin 4.8 Lipase 24 TSH Free T4 Hold Red Top Urine Color Urine Appearance Urine pH Ur Specific [place] Urine Protein Urine Glucose (UA) Urine Ketones Urine Blood Urine Nitrite Ur Leukocyte Esterase Urine RBC Urine WBC Ur Squamous Epith Cells Urine Bacteria Hyaline Casts Urine Test CSF Tube Number CSF Volume CSF Appearance CSF Color CSF WBC CSF RBC CSF Lymphocytes CSF Monocytes % CSF Appearance (b) CSF Glucose CSF Total Protein Vancomycin Trough Random Vancomycin Urine Opiates Screen Urine Fentanyl Screen Ur Barbiturates Screen Ur Phencyclidine Scrn Ur Amphetamines Screen U Benzodiazepines Scrn Urine Cocaine Screen U Marijuana (THC) Screen Ethyl Alcohol < 10 Thyroglobulin Antibody Thyroid Peroxidase Ab Respiratory Panel [place] Adenovirus (Rapid PCR) B.pert (TEM-PCR) B.parapertussis DNA PCR C. pneumoniae DNA (PCR) Coronavirus OC43 (PCR) Coronavirus HKU1 (PCR) Coronavirus 229E (PCR) Coronavirus NL63 (PCR) Hepatitis C Ab (EIA) HIV 1&2 Ab/P24 Ag 4thGn Human Metapneumovir PCR Influenza A (RT-PCR) Influenza Type A (PCR) Influenza B (RT-PCR) Influenza Type B (PCR) M. pneumoniae (PCR) Parainfluenza 1 (PCR) Parainfluenza 2 (PCR) Parainfluenza 3 (PCR) Parainfluenza 4 (PCR) RSV (PCR) RSV RNA Qual (PCR) Entero/Rhino (PCR) SARS-CoV-2 RNA (RT-PCR) Blood Type Antibody Screen Crossmatch 08/16/23 08/16/2308/16/23 08:25 08:25 08:25 WBC RBC Hgb Hct MCV MCH MCHC RDW Plt Count MPV Immature Gran % (Auto) Neut % (Auto) Lymph % (Auto) Stearns % (Auto) Eos % (Auto) Baso % (Auto) Lymph # (Auto) Stearns # (Auto) Eos # (Auto) Baso # (Auto) Abs Immat Gran (auto) Absolute Neuts (auto) Absolute Nucleated RBC Nucleated RBC % (auto) Smear Tech's Comments Hold Purple Top PT INR APTT Hold Blue Top O2 Saturation ABG pH at Pt Temp ABG pCO2 at Pt Temp ABG pO2 at Pt Temp ABG HCO3 ABG Base Excess (Actual) VBG pH VBG pCO2 VBG pO2 VBG HCO3 VBG O2 Saturation VBG Base Excess Sodium Potassium Chloride Carbon Dioxide Anion Gap BUN Creatinine Estim Creat Clear Calc Estimated GFR POC Glucose Random Glucose Fasting Glucose Lactic Acid Lactic Acid F/U @ 2Hr Lactic Acid F/U @ 4Hr Calcium Phosphorus Magnesium Total Bilirubin Direct Bilirubin AST ALT Alkaline Phosphatase Total Creatine Kinase Troponin I High Sens Total Protein Albumin Lipase TSH Free T4 Hold Red Top Urine Color Dark Yellow Urine Appearance Cloudy Urine pH 5.5 Ur Specific [place] 1.015 Urine Protein 100 (2+) H Urine Glucose (UA) 100 H Urine Ketones Trace Urine Blood Large (3+) H Urine Nitrite Negative Ur Leukocyte Esterase Trace H Urine RBC >20 H Urine WBC 0-5 Ur Squamous Epith Cells 0-2 Urine Bacteria None Seen Hyaline Casts 0-2 Urine Test CSF Tube Number Cancelled 1 4 CSF Volume CSF Appearance CSF Color CSF WBC CSF RBC CSF Lymphocytes CSF Monocytes % CSF Appearance (b) CSF Glucose CSF Total Protein Vancomycin Trough Random Vancomycin Urine Opiates Screen Urine Fentanyl Screen Ur Barbiturates Screen Ur Phencyclidine Scrn Ur Amphetamines Screen U Benzodiazepines Scrn Urine Cocaine Screen U Marijuana (THC) Screen Ethyl Alcohol Thyroglobulin Antibody Thyroid Peroxidase Ab Respiratory Panel [place] Adenovirus (Rapid PCR) B.pert (TEM-PCR) B.parapertussis DNA PCR C. pneumoniae DNA (PCR) Coronavirus OC43 (PCR) Coronavirus HKU1 (PCR) Coronavirus 229E (PCR) Coronavirus NL63 (PCR) Hepatitis C Ab (EIA) HIV 1&2 Ab/P24 Ag 4thGn Human Metapneumovir PCR Influenza A (RT-PCR) Influenza Type A (PCR) Influenza B (RT-PCR) Influenza Type B (PCR) M. pneumoniae (PCR) Parainfluenza 1 (PCR) Parainfluenza 2 (PCR) Parainfluenza 3 (PCR) Parainfluenza 4 (PCR) RSV (PCR) RSV RNA Qual (PCR) Entero/Rhino (PCR) SARS-CoV-2 RNA (RT-PCR) Blood Type Antibody Screen Crossmatch 08/16/23 08/16/23 08/16/23 08:25 08:25 08:25 WBC RBC Hgb Hct MCV MCH MCHC RDW Plt Count MPV Immature Gran % (Auto) Neut % (Auto) Lymph % (Auto) Stearns % (Auto) Eos % (Auto) Baso % (Auto) Lymph # (Auto) Stearns # (Auto) Eos # (Auto) Baso # (Auto) Abs Immat Gran (auto) Absolute Neuts (auto) Absolute Nucleated RBC Nucleated RBC % (auto) Smear Tech's Comments Hold Purple Top PT INR APTT Hold Blue Top O2 Saturation ABG pH at Pt Temp ABG pCO2 at Pt Temp ABG pO2 at Pt Temp ABG HCO3 ABG Base Excess (Actual) VBG pH VBG pCO2 VBG pO2 VBG HCO3 VBG O2 Saturation VBG Base Excess Sodium Potassium Chloride Carbon Dioxide Anion Gap BUN Creatinine Estim Creat Clear Calc Estimated GFR POC Glucose Random Glucose Fasting Glucose Lactic Acid Lactic Acid F/U @ 2Hr Lactic Acid F/U @ 4Hr Calcium Phosphorus Magnesium Total Bilirubin Direct Bilirubin AST ALT Alkaline Phosphatase Total Creatine Kinase Troponin I High Sens Total Protein Albumin Lipase TSH Free T4 Hold Red Top Urine Color Urine Appearance Urine pH Ur Specific [place] Urine Protein Urine Glucose (UA) Urine Ketones Urine Blood Urine Nitrite Ur Leukocyte Esterase Urine RBC Urine WBC Ur Squamous Epith Cells Urine Bacteria Hyaline Casts Urine Test CSF Tube Number 2 CSF Volume 1.0 1.0 CSF Appearance CLEAR CLEAR CSF Color COLORLESS CSF WBC CSF RBC CSF Lymphocytes CSF Monocytes % CSF Appearance (b) CSF Glucose CSF Total Protein Vancomycin Trough Random Vancomycin Urine Opiates Screen Urine Fentanyl Screen Ur Barbiturates Screen Ur Phencyclidine Scrn Ur Amphetamines Screen U Benzodiazepines Scrn Urine Cocaine Screen U Marijuana (THC) Screen Ethyl Alcohol Thyroglobulin Antibody Thyroid Peroxidase Ab Respiratory Panel [place] Adenovirus (Rapid PCR) B.pert (TEM-PCR) B.parapertussis DNA PCR C. pneumoniae DNA (PCR) Coronavirus OC43 (PCR) Coronavirus HKU1 (PCR) Coronavirus 229E (PCR) Coronavirus NL63 (PCR) Hepatitis C Ab (EIA) HIV 1&2 Ab/P24 Ag 4thGn Human Metapneumovir PCR Influenza A (RT-PCR) Influenza Type A (PCR) Influenza B (RT-PCR) Influenza Type B (PCR) M. pneumoniae (PCR) Parainfluenza 1 (PCR) Parainfluenza 2 (PCR) Parainfluenza 3 (PCR) Parainfluenza 4 (PCR) RSV (PCR) RSV RNA Qual (PCR) Entero/Rhino (PCR) SARS-CoV-2 RNA (RT-PCR) Blood Type Antibody Screen Crossmatch 08/16/23 08/16/23 08/16/23 08:25 08:25 08:25 WBC RBC Hgb Hct MCV MCH MCHC RDW Plt Count MPV Immature Gran % (Auto) Neut % (Auto) Lymph % (Auto) Stearns % (Auto) Eos % (Auto) Baso % (Auto) Lymph # (Auto) Ste[place]s # (Auto) Eos # (Auto) Baso # (Auto) Abs Immat Gran (auto) Absolute Neuts (auto) Absolute Nucleated RBC Nucleated RBC % (auto) Smear Tech's Comments Hold Purple Top PT INR APTT Hold Blue Top O2 Saturation ABG pH at Pt Temp ABG pCO2 at Pt Temp ABG pO2 at Pt Temp ABG HCO3 ABG Base Excess (Actual) VBG pH VBG pCO2 VBG pO2 VBG HCO3 VBG O2 Saturation VBG Base Excess Sodium Potassium Chloride Carbon Dioxide Anion Gap BUN Creatinine Estim Creat Clear Calc Estimated GFR POC Glucose Random Glucose Fasting Glucose Lactic Acid Lactic Acid F/U @ 2Hr Lactic Acid F/U @ 4Hr Calcium Phosphorus Magnesium Total Bilirubin Direct Bilirubin AST ALT Alkaline Phosphatase Total Creatine Kinase Troponin I High Sens Total Protein Albumin Lipase TSH Free T4 Hold Red Top Urine Color Urine Appearance Urine pH Ur Specific [place] Urine Protein Urine Glucose (UA) Urine Ketones Urine Blood Urine Nitrite Ur Leukocyte Esterase Urine RBC Urine WBC Ur Squamous Epith Cells Urine Bacteria Hyaline Casts Urine Test CSF Tube Number CSF Volume CSF Appearance CSF Color COLORLESS CSF WBC 2 3 CSF RBC 22 14 CSF Lymphocytes 100 CSF Monocytes % CSF Appearance (b) CSF Glucose CSF Total Protein Vancomycin Trough Random Vancomycin Urine Opiates Screen Urine Fentanyl Screen Ur Barbiturates Screen Ur Phencyclidine Scrn Ur Amphetamines Screen U Benzodiazepines Scrn Urine Cocaine Screen U Marijuana (THC) Screen Ethyl Alcohol Thyroglobulin Antibody Thyroid Peroxidase Ab Respiratory Panel [place] Adenovirus (Rapid PCR) B.pert (TEM-PCR) B.parapertussis DNA PCR C. pneumoniae DNA (PCR) Coronavirus OC43 (PCR) Coronavirus HKU1 (PCR) Coronavirus 229E (PCR) Coronavirus NL63 (PCR) Hepatitis C Ab (EIA) HIV 1&2 Ab/P24 Ag 4thGn Human Metapneumovir PCR Influenza A (RT-PCR) Influenza Type A (PCR) Influenza B (RT-PCR) Influenza Type B (PCR) M. pneumoniae (PCR) Parainfluenza 1 (PCR) Parainfluenza 2 (PCR) Parainfluenza 3 (PCR) Parainfluenza 4 (PCR) RSV (PCR) RSV RNA Qual (PCR) Entero/Rhino (PCR) SARS-CoV-2 RNA (RT-PCR) Blood Type Antibody Screen Crossmatch 08/16/23 08/16/23 08/16/23 08:25 08:25 08:25 WBC RBC Hgb Hct MCV MCH MCHC RDW Plt Count MPV Immature Gran % (Auto) Neut % (Auto) Lymph % (Auto) Ste[place]s % (Auto) Eos % (Auto) Baso % (Auto) Lymph # (Auto) Ste[place]s # (Auto) Eos # (Auto) Baso # (Auto) Abs Immat Gran (auto) Absolute Neuts (auto) Absolute Nucleated RBC Nucleated RBC % (auto) Smear Tech's Comments Hold Purple Top PT INR APTT Hold Blue Top O2 Saturation ABG pH at Pt Temp ABG pCO2 at Pt Temp ABG pO2 at Pt Temp ABG HCO3 ABG Base Excess (Actual) VBG pH VBG pCO2 VBG pO2 VBG HCO3 VBG O2 Saturation VBG Base Excess Sodium Potassium Chloride Carbon Dioxide Anion Gap BUN Creatinine Estim Creat Clear Calc Estimated GFR POC Glucose Random Glucose Fasting Glucose Lactic Acid Lactic Acid F/U @ 2Hr Lactic Acid F/U @ 4Hr Calcium Phosphorus Magnesium Total Bilirubin Direct Bilirubin AST ALT Alkaline Phosphatase Total Creatine Kinase Troponin I High Sens Total Protein Albumin Lipase TSH Free T4 Hold Red Top Urine Color Urine Appearance Urine pH Ur Specific [place] Urine Protein Urine Glucose (UA) Urine Ketones Urine Blood Urine Nitrite Ur Leukocyte Esterase Urine RBC Urine WBC Ur Squamous Epith Cells Urine Bacteria Hyaline Casts Urine Test CSF Tube Number CSF Volume CSF Appearance CSF Color CSF WBC CSF RBC CSF Lymphocytes 83 CSF Monocytes % 17 CSF Appearance (b) Cancelled Clear, Colorless CSF Glucose Cancelled 96 CSF Total Protein 28.6 Vancomycin Trough Random Vancomycin Urine Opiates Screen POSITIVE H Urine Fentanyl Screen POSITIVE H Ur Barbiturates Screen Not Detected Ur Phencyclidine Scrn Not Detected Ur Amphetamines Screen Not Detected U Benzodiazepines Scrn POSITIVE H Urine Cocaine Screen POSITIVE H U Marijuana (THC) Screen POSITIVE H Ethyl Alcohol Thyroglobulin Antibody Thyroid Peroxidase Ab Respiratory Panel [place] Adenovirus (Rapid PCR) B.pert (TEM-PCR) B.parapertussis DNA PCR C. pneumoniae DNA (PCR) Coronavirus OC43 (PCR) Coronavirus HKU1 (PCR) Coronavirus 229E (PCR) Coronavirus NL63 (PCR) Hepatitis C Ab (EIA) HIV 1&2 Ab/P24 Ag 4thGn Human Metapneumovir PCR Influenza A (RT-PCR) Influenza Type A (PCR) Influenza B (RT-PCR) Influenza Type B (PCR) M. pneumoniae (PCR) Parainfluenza 1 (PCR) Parainfluenza 2 (PCR) Parainfluenza 3 (PCR) Parainfluenza 4 (PCR) RSV (PCR) RSV RNA Qual (PCR) Entero/Rhino (PCR) SARS-CoV-2 RNA (RT-PCR) Blood Type Antibody Screen Crossmatch 08/16/23 08/16/23 08/16/23 09:45 09:46 09:50 WBC RBC Hgb Hct MCV MCH MCHC RDW Plt Count MPV Immature Gran % (Auto) Neut % (Auto) Lymph % (Auto) Stearns % (Auto) Eos % (Auto) Baso % (Auto) Lymph # (Auto) Ste[place]s # (Auto) Eos # (Auto) Baso # (Auto) Abs Immat Gran (auto) Absolute Neuts (auto) Absolute Nucleated RBC Nucleated RBC % (auto) Smear Tech's Comments Hold Purple Top PT INR APTT Hold Blue Top O2 Saturation ABG pH at Pt Temp ABG pCO2 at Pt Temp ABG pO2 at Pt Temp ABG HCO3 ABG Base Excess (Actual) VBG pH VBG pCO2 VBG pO2 VBG HCO3 VBG O2 Saturation VBG Base Excess Sodium Potassium Chloride Carbon Dioxide Anion Gap BUN Creatinine Estim Creat Clear Calc Estimated GFR POC Glucose Random Glucose Fasting Glucose Lactic Acid Lactic Acid F/U @ 2Hr 2.3 H* Lactic Acid F/U @ 4Hr Calcium Phosphorus Magnesium Total Bilirubin Direct Bilirubin AST ALT Alkaline Phosphatase Total Creatine Kinase Troponin I High Sens Total Protein Albumin Lipase TSH 0.70 Free T4 1.10 Hold Red Top Urine Color Urine Appearance Urine pH Ur Specific [place] Urine Protein Urine Glucose (UA) Urine Ketones Urine Blood Urine Nitrite Ur Leukocyte Esterase Urine RBC Urine WBC Ur Squamous Epith Cells Urine Bacteria Hyaline Casts Urine Test CSF Tube Number CSF Volume CSF Appearance CSF Color CSF WBC CSF RBC CSF Lymphocytes CSF Monocytes % CSF Appearance (b) CSF Glucose CSF Total Protein Vancomycin Trough Random Vancomycin Urine Opiates Screen Urine Fentanyl Screen Ur Barbiturates Screen Ur Phencyclidine Scrn Ur Amphetamines Screen U Benzodiazepines Scrn Urine Cocaine Screen U Marijuana (THC) Screen Ethyl Alcohol Thyroglobulin Antibody 160 H Thyroid Peroxidase Ab 26 H Respiratory Panel Tate See Note Adenovirus (Rapid PCR) Not Detected B.pert (TEM-PCR) Not Detected B.parapertussis DNA PCR Not Detected C. pneumoniae DNA (PCR) Not Detected Coronavirus OC43 (PCR) Not Detected Coronavirus HKU1 (PCR) Not Detected Coronavirus 229E (PCR) Not Detected Coronavirus NL63 (PCR) Not Detected Hepatitis C Ab (EIA) HIV 1&2 Ab/P24 Ag 4thGn Human Metapneumovir PCR Not Detected Influenza A (RT-PCR) Not Detected Influenza Type A (PCR) Influenza B (RT-PCR) Not Detected Influenza Type B (PCR) M. pneumoniae (PCR) Not Detected Parainfluenza 1 (PCR) Not Detected Parainfluenza 2 (PCR) Not Detected Parainfluenza 3 (PCR) Not Detected Parainfluenza 4 (PCR) Not Detected RSV (PCR) Not Detected RSV RNA Qual (PCR) Entero/Rhino (PCR) Not Detected SARS-CoV-2 RNA (RT-PCR) Not Detected Blood Type Antibody Screen Crossmatch 08/16/23 08/17/23 08/17/23 12:59 04:43 04:47 WBC 15.6 H RBC 4.29 Hgb 13.7 Hct 41.3 MCV 96.3 MCH 31.9 MCHC 33.2 RDW 13.1 Plt Count 266 D MPV 11.5 Immature Gran % (Auto) 0.3 Neut % (Auto) 73.5 H Lymph % (Auto) 15.9 L Ste[place]s % (Auto) 10.1 Eos % (Auto) 0.0 Baso % (Auto) 0.2 Lymph # (Auto) 2.5 Stearns # (Auto) 1.6 H Eos # (Auto) 0.0 Baso # (Auto) 0.0 Abs Immat Gran (auto) 0.04 H Absolute Neuts (auto) 11.5 H Absolute Nucleated RBC 0.000 Nucleated RBC % (auto) 0.0 Smear Tech's Comments Hold Purple Top PT INR APTT Hold Blue Top O2 Saturation ABG pH at Pt Temp ABG pCO2 at Pt Temp ABG pO2 at Pt Temp ABG HCO3 ABG Base Excess (Actual) VBG pH 7.46 H VBG pCO2 24 VBG pO2 125 VBG HCO3 17 L VBG O2 Saturation 99.0 VBG Base Excess -4.6 Sodium 140 Potassium 4.1 D Chloride 113 H Carbon Dioxide 15 L Anion Gap 16 BUN 16 Creatinine 1.06 Estim Creat Clear Calc 76.1 Estimated GFR 59 POC Glucose Random Glucose 158 H Fasting Glucose Lactic Acid Lactic Acid F/U @ 2Hr Lactic Acid F/U @ 4Hr 3.1 H* Calcium 8.2 L D Phosphorus 3.1 Magnesium 2.4 Total Bilirubin 0.4 Direct Bilirubin AST 397 H ALT 135 H Alkaline Phosphatase 53 Total Creatine Kinase Troponin I High Sens Total Protein 6.1 L Albumin 3.2 L Lipase TSH Free T4 Hold Red Top Urine Color Urine Appearance Urine pH Ur Specific [place] Urine Protein Urine Glucose (UA) Urine Ketones Urine Blood Urine Nitrite Ur Leukocyte Esterase Urine RBC Urine WBC Ur Squamous Epith Cells Urine Bacteria Hyaline Casts Urine Test CSF Tube Number CSF Volume CSF Appearance CSF Color CSF WBC CSF RBC CSF Lymphocytes CSF Monocytes % CSF Appearance (b) CSF Glucose CSF Total Protein Vancomycin Trough Random Vancomycin Urine Opiates Screen Urine Fentanyl Screen Ur Barbiturates Screen Ur Phencyclidine Scrn Ur Amphetamines Screen U Benzodiazepines Scrn Urine Cocaine Screen U Marijuana (THC) Screen Ethyl Alcohol Thyroglobulin Antibody Thyroid Peroxidase Ab Respiratory Panel [place] Adenovirus (Rapid PCR) B.pert (TEM-PCR) B.parapertussis DNA PCR C. pneumoniae DNA (PCR) Coronavirus OC43 (PCR) Coronavirus HKU1 (PCR) Coronavirus 229E (PCR) Coronavirus NL63 (PCR) Hepatitis C Ab (EIA) HIV 1&2 Ab/P24 Ag 4thGn Human Metapneumovir PCR Influenza A (RT-PCR) Influenza Type A (PCR) Influenza B (RT-PCR) Influenza Type B (PCR) M. pneumoniae (PCR) Parainfluenza 1 (PCR) Parainfluenza 2 (PCR) Parainfluenza 3 (PCR) Parainfluenza 4 (PCR) RSV (PCR) RSV RNA Qual (PCR) Entero/Rhino (PCR) SARS-CoV-2 RNA (RT-PCR) Blood Type Antibody Screen Crossmatch 08/17/23 08/18/23 08/18/23 Unknown 04:28 04:34 WBC 13.7 H RBC 3.88 L Hgb 12.4 Hct 37.9 MCV 97.7 MCH 32.0 MCHC 32.7 RDW 13.2 Plt Count 250 MPV 11.1 Immature Gran % (Auto) 0.4 Neut % (Auto) 58.7 Lymph % (Auto) 32.7 Stearns % (Auto) 7.9 Eos % (Auto) 0.1 Baso % (Auto) 0.2 Lymph # (Auto) 4.5 Ste[place]s # (Auto) 1.1 Eos # (Auto) 0.0 Baso # (Auto) 0.0 Abs Immat Gran (auto) 0.05 H Absolute Neuts (auto) 8.0 Absolute Nucleated RBC 0.000 Nucleated RBC % (auto) 0.0 Smear Tech's Comments VERIFIED Hold Purple Top PT INR APTT Hold Blue Top O2 Saturation ABG pH at Pt Temp ABG pCO2 at Pt Temp ABG pO2 at Pt Temp ABG HCO3 ABG Base Excess (Actual) VBG pH 7.50 H VBG pCO2 32 VBG pO2 47 VBG HCO3 25 VBG O2 Saturation 80.0 VBG Base Excess 2.8 Sodium 143 Potassium 4.0 Chloride 111 H Carbon Dioxide 20 L Anion Gap 16 BUN 12 Creatinine 0.79 Estim Creat Clear Calc 108.0 Estimated GFR > 60 POC Glucose Random Glucose 99 Fasting Glucose Lactic Acid Lactic Acid F/U @ 2Hr Lactic Acid F/U @ 4Hr Calcium 8.5 Phosphorus 2.8 Magnesium 2.5 Total Bilirubin 0.4 Direct Bilirubin AST 296 H ALT 110 H Alkaline Phosphatase 62 Total Creatine Kinase 45458 H Troponin I High Sens Total Protein 5.5 L Albumin 3.0 L Lipase TSH Free T4 Hold Red Top Urine Color Urine Appearance Urine pH Ur Specific [place] Urine Protein Urine Glucose (UA) Urine Ketones Urine Blood Urine Nitrite Ur Leukocyte Esterase Urine RBC Urine WBC Ur Squamous Epith Cells Urine Bacteria Hyaline Casts Urine Test NEGATIVE CSF Tube Number CSF Volume CSF Appearance CSF Color CSF WBC CSF RBC CSF Lymphocytes CSF Monocytes % CSF Appearance (b) CSF Glucose CSF Total Protein Vancomycin Trough 10.1 Random Vancomycin Urine Opiates Screen Urine Fentanyl Screen Ur Barbiturates Screen Ur Phencyclidine Scrn Ur Amphetamines Screen U Benzodiazepines Scrn Urine Cocaine Screen U Marijuana (THC) Screen Ethyl Alcohol Thyroglobulin Antibody Thyroid Peroxidase Ab Respiratory Panel [place] Adenovirus (Rapid PCR) B.pert (TEM-PCR) B.parapertussis DNA PCR C. pneumoniae DNA (PCR) Coronavirus OC43 (PCR) Coronavirus HKU1 (PCR) Coronavirus 229E (PCR) Coronavirus NL63 (PCR) Hepatitis C Ab (EIA) HIV 1&2 Ab/P24 Ag 4thGn Human Metapneumovir PCR Influenza A (RT-PCR) Influenza Type A (PCR) Influenza B (RT-PCR) Influenza Type B (PCR) M. pneumoniae (PCR) Parainfluenza 1 (PCR) Parainfluenza 2 (PCR) Parainfluenza 3 (PCR) Parainfluenza 4 (PCR) RSV (PCR) RSV RNA Qual (PCR) Entero/Rhino (PCR) SARS-CoV-2 RNA (RT-PCR) Blood Type Antibody Screen Crossmatch 08/19/23 08/19/23 08/19/23 05:05 05:16 17:53 WBC 13.8 H RBC 3.33 L Hgb 10.7 L Hct 32.6 L MCV 97.9 MCH 32.1 MCHC 32.8 RDW 13.0 Plt Count 225 MPV 11.3 Immature Gran % (Auto) 0.7 H Neut % (Auto) 50.5 Lymph % (Auto) 42.0 H Stearns % (Auto) 6.4 Eos % (Auto) 0.1 Baso % (Auto) 0.3 Lymph # (Auto) 5.8 H Ste[place]s # (Auto) 0.9 Eos # (Auto) 0.0 Baso # (Auto) 0.0 Abs Immat Gran (auto) 0.09 H Absolute Neuts (auto) 7.0 Absolute Nucleated RBC 0.000 Nucleated RBC % (auto) 0.0 Smear Tech's Comments VERIFIED Hold Purple Top PT INR APTT Hold Blue Top O2 Saturation ABG pH at Pt Temp ABG pCO2 at Pt Temp ABG pO2 at Pt Temp ABG HCO3 ABG Base Excess (Actual) VBG pH 7.58 H VBG pCO2 30 VBG pO2 47 VBG HCO3 28 H VBG O2 Saturation 81.0 VBG Base Excess 7.1 Sodium 143 Potassium 3.8 Chloride 110 H Carbon Dioxide 24 Anion Gap 13 BUN 12 Creatinine 0.71 Estim Creat Clear Calc 121.6 Estimated GFR > 60 POC Glucose Random Glucose 87 Fasting Glucose Lactic Acid Lactic Acid F/U @ 2Hr Lactic Acid F/U @ 4Hr Calcium 8.3 L Phosphorus 1.9 L Magnesium 2.3 Total Bilirubin 0.6 Direct Bilirubin AST 247 H ALT 96 H Alkaline Phosphatase 46 Total Creatine Kinase 06555 H Troponin I High Sens Total Protein 5.3 L Albumin 2.8 L Lipase TSH Free T4 Hold Red Top Urine Color Urine Appearance Urine pH Ur Specific [place] Urine Protein Urine Glucose (UA) Urine Ketones Urine Blood Urine Nitrite Ur Leukocyte Esterase Urine RBC Urine WBC Ur Squamous Epith Cells Urine Bacteria Hyaline Casts Urine Test CSF Tube Number CSF Volume CSF Appearance CSF Color CSF WBC CSF RBC CSF Lymphocytes CSF Monocytes % CSF Appearance (b) CSF Glucose CSF Total Protein Vancomycin Trough Random Vancomycin 11.6 L Urine Opiates Screen Urine Fentanyl Screen Ur Barbiturates Screen Ur Phencyclidine Scrn Ur Amphetamines Screen U Benzodiazepines Scrn Urine Cocaine Screen U Marijuana (THC) Screen Ethyl Alcohol Thyroglobulin Antibody Thyroid Peroxidase Ab Respiratory Panel [place] Adenovirus (Rapid PCR) B.pert (TEM-PCR) B.parapertussis DNA PCR C. pneumoniae DNA (PCR) Coronavirus OC43 (PCR) Coronavirus HKU1 (PCR) Coronavirus 229E (PCR) Coronavirus NL63 (PCR) Hepatitis C Ab (EIA) HIV 1&2 Ab/P24 Ag 4thGn Human Metapneumovir PCR Influenza A (RT-PCR) Influenza Type A (PCR) Influenza B (RT-PCR) Influenza Type B (PCR) M. pneumoniae (PCR) Parainfluenza 1 (PCR) Parainfluenza 2 (PCR) Parainfluenza 3 (PCR) Parainfluenza 4 (PCR) RSV (PCR) RSV RNA Qual (PCR) Entero/Rhino (PCR) SARS-CoV-2 RNA (RT-PCR) Blood Type Antibody Screen Crossmatch 08/19/23 08/20/23 08/20/23 20:05 05:15 05:18 WBC 10.9 H RBC 3.02 L Hgb 9.6 L Hct 29.1 L MCV 96.4 MCH 31.8 MCHC 33.0 RDW 12.7 Plt Count 195 MPV 11.5 Immature Gran % (Auto) 0.5 H Neut % (Auto) 40.4 L Lymph % (Auto) 50.6 H Stearns % (Auto) 7.6 Eos % (Auto) 0.6 Baso % (Auto) 0.3 Lymph # (Auto) 5.5 H Ste[place]s # (Auto) 0.8 Eos # (Auto) 0.1 Baso # (Auto) 0.0 Abs Immat Gran (auto) 0.05 H Absolute Neuts (auto) 4.4 Absolute Nucleated RBC 0.000 Nucleated RBC % (auto) 0.0 Smear Tech's Comments VERIFIED Hold Purple Top PT INR APTT Hold Blue Top O2 Saturation ABG pH at Pt Temp ABG pCO2 at Pt Temp ABG pO2 at Pt Temp ABG HCO3 ABG Base Excess (Actual) VBG pH 7.50 H VBG pCO2 36 VBG pO2 54 VBG HCO3 28 H VBG O2 Saturation 84.0 VBG Base Excess 5.4 Sodium 143 144 Potassium 3.3 3.3 Chloride 109 H 110 H Carbon Dioxide 23 23 Anion Gap 14 14 BUN 12 15 Creatinine 0.70 0.68 Estim Creat Clear Calc 123.4 126.1 Estimated GFR > 60 > 60 POC Glucose Random Glucose 102 81 Fasting Glucose Lactic Acid Lactic Acid F/U @ 2Hr Lactic Acid F/U @ 4Hr Calcium 8.4 8.4 Phosphorus 2.9 2.6 L Magnesium 2.3 2.4 Total Bilirubin 1.0 Direct Bilirubin AST 209 H ALT 91 H Alkaline Phosphatase 37 L Total Creatine Kinase 8395 H Troponin I High Sens Total Protein 5.2 L Albumin 3.0 L 3.2 L Lipase TSH Free T4 Hold Red Top Urine Color Urine Appearance Urine pH Ur Specific [place] Urine Protein Urine Glucose (UA) Urine Ketones Urine Blood Urine Nitrite Ur Leukocyte Esterase Urine RBC Urine WBC Ur Squamous Epith Cells Urine Bacteria Hyaline Casts Urine Test CSF Tube Number CSF Volume CSF Appearance CSF Color CSF WBC CSF RBC CSF Lymphocytes CSF Monocytes % CSF Appearance (b) CSF Glucose CSF Total Protein Vancomycin Trough Random Vancomycin Urine Opiates Screen Urine Fentanyl Screen Ur Barbiturates Screen Ur Phencyclidine Scrn Ur Amphetamines Screen U Benzodiazepines Scrn Urine Cocaine Screen U Marijuana (THC) Screen Ethyl Alcohol Thyroglobulin Antibody Thyroid Peroxidase Ab Respiratory Panel [place] Adenovirus (Rapid PCR) B.pert (TEM-PCR) B.parapertussis DNA PCR C. pneumoniae DNA (PCR) Coronavirus OC43 (PCR) Coronavirus HKU1 (PCR) Coronavirus 229E (PCR) Coronavirus NL63 (PCR) Hepatitis C Ab (EIA) HIV 1&2 Ab/P24 Ag 4thGn Human Metapneumovir PCR Influenza A (RT-PCR) Influenza Type A (PCR) Influenza B (RT-PCR) Influenza Type B (PCR) M. pneumoniae (PCR) Parainfluenza 1 (PCR) Parainfluenza 2 (PCR) Parainfluenza 3 (PCR) Parainfluenza 4 (PCR) RSV (PCR) RSV RNA Qual (PCR) Entero/Rhino (PCR) SARS-CoV-2 RNA (RT-PCR) Blood Type Antibody Screen Crossmatch 08/20/23 08/20/23 08/21/23 07:51 18:01 06:43 WBC 13.1 H RBC 3.18 L Hgb 10.2 L Hct 30.3 L MCV 95.3 MCH 32.1 MCHC 33.7 RDW 12.6 Plt Count 243 MPV 11.6 Immature Gran % (Auto) Neut % (Auto) Lymph % (Auto) Stearns % (Auto) Eos % (Auto) Baso % (Auto) Lymph # (Auto) Ste[place]s # (Auto) Eos # (Auto) Baso # (Auto) Abs Immat Gran (auto) Absolute Neuts (auto) Absolute Nucleated RBC 0.000 Nucleated RBC % (auto) 0.0 Smear Tech's Comments Hold Purple Top PT 11.4 INR 0.9 APTT 25.7 L Hold Blue Top O2 Saturation ABG pH at Pt Temp ABG pCO2 at Pt Temp ABG pO2 at Pt Temp ABG HCO3 ABG Base Excess (Actual) VBG pH VBG pCO2 VBG pO2 VBG HCO3 VBG O2 Saturation VBG Base Excess Sodium 141 Potassium 3.0 L Chloride 108 Carbon Dioxide 22 Anion Gap 14 BUN 16 Creatinine 0.64 Estim Creat Clear Calc 133.9 Estimated GFR > 60 POC Glucose Random Glucose 94 Fasting Glucose Lactic Acid Lactic Acid F/U @ 2Hr Lactic Acid F/U @ 4Hr Calcium 8.5 Phosphorus Magnesium Total Bilirubin 0.8 Direct Bilirubin 0.3 AST 137 H ALT 84 H Alkaline Phosphatase 41 Total Creatine Kinase 4585 H Troponin I High Sens Total Protein 5.0 L Albumin 2.9 L Lipase TSH Free T4 Hold Red Top Urine Color Urine Appearance Urine pH Ur Specific [place] Urine Protein Urine Glucose (UA) Urine Ketones Urine Blood Urine Nitrite Ur Leukocyte Esterase Urine RBC Urine WBC Ur Squamous Epith Cells Urine Bacteria Hyaline Casts Urine Test CSF Tube Number CSF Volume CSF Appearance CSF Color CSF WBC CSF RBC CSF Lymphocytes CSF Monocytes % CSF Appearance (b) CSF Glucose CSF Total Protein Vancomycin Trough Random Vancomycin 18.1 Urine Opiates Screen Urine Fentanyl Screen Ur Barbiturates Screen Ur Phencyclidine Scrn Ur Amphetamines Screen U Benzodiazepines Scrn Urine Cocaine Screen U Marijuana (THC) Screen Ethyl Alcohol Thyroglobulin Antibody Thyroid Peroxidase Ab Respiratory Panel [place] Adenovirus (Rapid PCR) B.pert (TEM-PCR) B.parapertussis DNA PCR C. pneumoniae DNA (PCR) Coronavirus OC43 (PCR) Coronavirus HKU1 (PCR) Coronavirus 229E (PCR) Coronavirus NL63 (PCR) Hepatitis C Ab (EIA) HIV 1&2 Ab/P24 Ag 4thGn Human Metapneumovir PCR Influenza A (RT-PCR) Influenza Type A (PCR) Influenza B (RT-PCR) Influenza Type B (PCR) M. pneumoniae (PCR) Parainfluenza 1 (PCR) Parainfluenza 2 (PCR) Parainfluenza 3 (PCR) Parainfluenza 4 (PCR) RSV (PCR) RSV RNA Qual (PCR) Entero/Rhino (PCR) SARS-CoV-2 RNA (RT-PCR) Blood Type Antibody Screen Crossmatch 08/21/23 08/22/23 08/22/23 10:35 07:08 10:04 WBC 13.0 H RBC 3.32 L Hgb 10.5 L Hct 30.9 L MCV 93.1 MCH 31.6 MCHC 34.0 RDW 12.6 Plt Count 269 MPV 11.2 Immature Gran % (Auto) Neut % (Auto) Lymph % (Auto) Ste[place]s % (Auto) Eos % (Auto) Baso % (Auto) Lymph # (Auto) Ste[place]s # (Auto) Eos # (Auto) Baso # (Auto) Abs Immat Gran (auto) Absolute Neuts (auto) Absolute Nucleated RBC 0.000 Nucleated RBC % (auto) 0.0 Smear Tech's Comments Hold Purple Top PT INR APTT Hold Blue Top O2 Saturation ABG pH at Pt Temp ABG pCO2 at Pt Temp ABG pO2 at Pt Temp ABG HCO3 ABG Base Excess (Actual) VBG pH VBG pCO2 VBG pO2 VBG HCO3 VBG O2 Saturation VBG Base Excess Sodium 142 Potassium 2.7 L Chloride 107 Carbon Dioxide 25 Anion Gap 13 BUN 11 Creatinine 0.54 Estim Creat Clear Calc 158.7 Estimated GFR > 60 POC Glucose Random Glucose 88 Fasting Glucose Lactic Acid Lactic Acid F/U @ 2Hr Lactic Acid F/U @ 4Hr Calcium 7.7 L D Phosphorus Magnesium Total Bilirubin Direct Bilirubin AST ALT Alkaline Phosphatase Total Creatine Kinase 2349 H Troponin I High Sens Total Protein Albumin Lipase TSH Free T4 Hold Red Top Urine Color Urine Appearance Urine pH Ur Specific [place] Urine Protein Urine Glucose (UA) Urine Ketones Urine Blood Urine Nitrite Ur Leukocyte Esterase Urine RBC Urine WBC Ur Squamous Epith Cells Urine Bacteria Hyaline Casts Urine Test CSF Tube Number CSF Volume CSF Appearance CSF Color CSF WBC CSF RBC CSF Lymphocytes CSF Monocytes % CSF Appearance (b) CSF Glucose CSF Total Protein Vancomycin Trough 15.6 Random Vancomycin 14.3 L Urine Opiates Screen Urine Fentanyl Screen Ur Barbiturates Screen Ur Phencyclidine Scrn Ur Amphetamines Screen U Benzodiazepines Scrn Urine Cocaine Screen U Marijuana (THC) Screen Ethyl Alcohol Thyroglobulin Antibody Thyroid Peroxidase Ab Respiratory Panel [place] Adenovirus (Rapid PCR) B.pert (TEM-PCR) B.parapertussis DNA PCR C. pneumoniae DNA (PCR) Coronavirus OC43 (PCR) Coronavirus HKU1 (PCR) Coronavirus 229E (PCR) Coronavirus NL63 (PCR) Hepatitis C Ab (EIA) HIV 1&2 Ab/P24 Ag 4thGn Human Metapneumovir PCR Influenza A (RT-PCR) Influenza Type A (PCR) Influenza B (RT-PCR) Influenza Type B (PCR) M. pneumoniae (PCR) Parainfluenza 1 (PCR) Parainfluenza 2 (PCR) Parainfluenza 3 (PCR) Parainfluenza 4 (PCR) RSV (PCR) RSV RNA Qual (PCR) Entero/Rhino (PCR) SARS-CoV-2 RNA (RT-PCR) Blood Type Antibody Screen Crossmatch 08/22/23 08/23/23 08/23/23 18:35 07:09 13:18 WBC 10.4 RBC 3.13 L Hgb 10.1 L Hct 29.7 L MCV 94.9 MCH 32.3 MCHC 34.0 RDW 12.5 Plt Count 276 MPV 11.2 Immature Gran % (Auto) Neut % (Auto) Lymph % (Auto) Ste[place]s % (Auto) Eos % (Auto) Baso % (Auto) Lymph # (Auto) Stearns # (Auto) Eos # (Auto) Baso # (Auto) Abs Immat Gran (auto) Absolute Neuts (auto) Absolute Nucleated RBC 0.000 Nucleated RBC % (auto) 0.0 Smear Tech's Comments Hold Purple Top PT INR APTT Hold Blue Top O2 Saturation ABG pH at Pt Temp ABG pCO2 at Pt Temp ABG pO2 at Pt Temp ABG HCO3 ABG Base Excess (Actual) VBG pH VBG pCO2 VBG pO2 VBG HCO3 VBG O2 Saturation VBG Base Excess Sodium 139 138 138 Potassium 3.1 L 2.7 L 3.3 D Chloride 103 104 104 Carbon Dioxide 25 24 27 Anion Gap 14 13 10 L BUN 8 L 7 L 7 L Creatinine 0.57 0.57 0.58 Estim Creat Clear Calc 150.4 150.4 147.7 Estimated GFR > 60 > 60 > 60 POC Glucose Random Glucose 127 H 95 104 Fasting Glucose Lactic Acid Lactic Acid F/U @ 2Hr Lactic Acid F/U @ 4Hr Calcium 8.6 D 8.1 L 8.0 L Phosphorus Magnesium Total Bilirubin Direct Bilirubin AST ALT Alkaline Phosphatase Total Creatine Kinase Troponin I High Sens Total Protein Albumin Lipase TSH Free T4 Hold Red Top Urine Color Urine Appearance Urine pH Ur Specific [place] Urine Protein Urine Glucose (UA) Urine Ketones Urine Blood Urine Nitrite Ur Leukocyte Esterase Urine RBC Urine WBC Ur Squamous Epith Cells Urine Bacteria Hyaline Casts Urine Test CSF Tube Number CSF Volume CSF Appearance CSF Color CSF WBC CSF RBC CSF Lymphocytes CSF Monocytes % CSF Appearance (b) CSF Glucose CSF Total Protein Vancomycin Trough Random Vancomycin 22.9 H Urine Opiates Screen Urine Fentanyl Screen Ur Barbiturates Screen Ur Phencyclidine Scrn Ur Amphetamines Screen U Benzodiazepines Scrn Urine Cocaine Screen U Marijuana (THC) Screen Ethyl Alcohol Thyroglobulin Antibody Thyroid Peroxidase Ab Respiratory Panel [place] Adenovirus (Rapid PCR) B.pert (TEM-PCR) B.parapertussis DNA PCR C. pneumoniae DNA (PCR) Coronavirus OC43 (PCR) Coronavirus HKU1 (PCR) Coronavirus 229E (PCR) Coronavirus NL63 (PCR) Hepatitis C Ab (EIA) HIV 1&2 Ab/P24 Ag 4thGn Human Metapneumovir PCR Influenza A (RT-PCR) Influenza Type A (PCR) Influenza B (RT-PCR) Influenza Type B (PCR) M. pneumoniae (PCR) Parainfluenza 1 (PCR) Parainfluenza 2 (PCR) Parainfluenza 3 (PCR) Parainfluenza 4 (PCR) RSV (PCR) RSV RNA Qual (PCR) Entero/Rhino (PCR) SARS-CoV-2 RNA (RT-PCR) Blood Type Antibody Screen Crossmatch 08/23/23 08/24/23 08/25/23 18:04 07:12 06:26 WBC 9.4 RBC 2.78 L Hgb 8.8 L Hct 26.4 L MCV 95.0 MCH 31.7 MCHC 33.3 RDW 12.8 Plt Count 234 MPV 10.6 Immature Gran % (Auto) Neut % (Auto) Lymph % (Auto) Stearns % (Auto) Eos % (Auto) Baso % (Auto) Lymph # (Auto) Stearns # (Auto) Eos # (Auto) Baso # (Auto) Abs Immat Gran (auto) Absolute Neuts (auto) Absolute Nucleated RBC 0.000 Nucleated RBC % (auto) 0.0 Smear Tech's Comments Hold Purple Top PT INR APTT Hold Blue Top O2 Saturation ABG pH at Pt Temp ABG pCO2 at Pt Temp ABG pO2 at Pt Temp ABG HCO3 ABG Base Excess (Actual) VBG pH VBG pCO2 VBG pO2 VBG HCO3 VBG O2 Saturation VBG Base Excess Sodium 139 Potassium 3.1 L Chloride 106 Carbon Dioxide 24 Anion Gap 12 BUN 5 L Creatinine 0.53 0.59 Estim Creat Clear Calc 161.7 145.3 Estimated GFR > 60 > 60 POC Glucose Random Glucose 89 Fasting Glucose Lactic Acid Lactic Acid F/U @ 2Hr Lactic Acid F/U @ 4Hr Calcium 7.7 L Phosphorus Magnesium Total Bilirubin Direct Bilirubin AST ALT Alkaline Phosphatase Total Creatine Kinase Troponin I High Sens Total Protein Albumin Lipase TSH Free T4 Hold Red Top Urine Color Urine Appearance Urine pH Ur Specific [place] Urine Protein Urine Glucose (UA) Urine Ketones Urine Blood Urine Nitrite Ur Leukocyte Esterase Urine RBC Urine WBC Ur Squamous Epith Cells Urine Bacteria Hyaline Casts Urine Test CSF Tube Number CSF Volume CSF Appearance CSF Color CSF WBC CSF RBC CSF Lymphocytes CSF Monocytes % CSF Appearance (b) CSF Glucose CSF Total Protein Vancomycin Trough Random Vancomycin 14.3 L Urine Opiates Screen Urine Fentanyl Screen Ur Barbiturates Screen Ur Phencyclidine Scrn Ur Amphetamines Screen U Benzodiazepines Scrn Urine Cocaine Screen U Marijuana (THC) Screen Ethyl Alcohol Thyroglobulin Antibody Thyroid Peroxidase Ab Respiratory Panel [place] Adenovirus (Rapid PCR) B.pert (TEM-PCR) B.parapertussis DNA PCR C. pneumoniae DNA (PCR) Coronavirus OC43 (PCR) Coronavirus HKU1 (PCR) Coronavirus 229E (PCR) Coronavirus NL63 (PCR) Hepatitis C Ab (EIA) HIV 1&2 Ab/P24 Ag 4thGn Human Metapneumovir PCR Influenza A (RT-PCR) Influenza Type A (PCR) Influenza B (RT-PCR) Influenza Type B (PCR) M. pneumoniae (PCR) Parainfluenza 1 (PCR) Parainfluenza 2 (PCR) Parainfluenza 3 (PCR) Parainfluenza 4 (PCR) RSV (PCR) RSV RNA Qual (PCR) Entero/Rhino (PCR) SARS-CoV-2 RNA (RT-PCR) Blood Type Antibody Screen Crossmatch 08/25/23 08/25/23 08/26/23 08:31 10:44 06:35 WBC 11.5 H RBC 2.53 L Hgb 10.1 L 7.9 L D Hct 30.7 L 24.1 L D MCV 95.3 MCH 31.2 MCHC 32.8 RDW 12.6 Plt Count 272 MPV 11.3 Immature Gran % (Auto) Neut % (Auto) Lymph % (Auto) [place] % (Auto) Eos % (Auto) Baso % (Auto) Lymph # (Auto) Ste[place]s # (Auto) Eos # (Auto) Baso # (Auto) Abs Immat Gran (auto) Absolute Neuts (auto) Absolute Nucleated RBC 0.000 Nucleated RBC % (auto) 0.0 Smear Tech's Comments Hold Purple Top SEE NOTE PT INR APTT Hold Blue Top O2 Saturation ABG pH at Pt Temp ABG pCO2 at Pt Temp ABG pO2 at Pt Temp ABG HCO3 ABG Base Excess (Actual) VBG pH VBG pCO2 VBG pO2 VBG HCO3 VBG O2 Saturation VBG Base Excess Sodium 137 135 Potassium 3.5 3.7 Chloride 99 101 Carbon Dioxide 27 24 Anion Gap 15 14 BUN 7 L Creatinine 0.64 Estim Creat Clear Calc 133.9 Estimated GFR > 60 POC Glucose Random Glucose Fasting Glucose 104 H Lactic Acid Lactic Acid F/U @ 2Hr Lactic Acid F/U @ 4Hr Calcium 8.4 D Phosphorus Magnesium Total Bilirubin Direct Bilirubin AST ALT Alkaline Phosphatase Total Creatine Kinase Troponin I High Sens Total Protein Albumin Lipase TSH Free T4 Hold Red Top Urine Color Urine Appearance Urine pH Ur Specific [place] Urine Protein Urine Glucose (UA) Urine Ketones Urine Blood Urine Nitrite Ur Leukocyte Esterase Urine RBC Urine WBC Ur Squamous Epith Cells Urine Bacteria Hyaline Casts Urine Test CSF Tube Number CSF Volume CSF Appearance CSF Color CSF WBC CSF RBC CSF Lymphocytes CSF Monocytes % CSF Appearance (b) CSF Glucose CSF Total Protein Vancomycin Trough Random Vancomycin Urine Opiates Screen Urine Fentanyl Screen Ur Barbiturates Screen Ur Phencyclidine Scrn Ur Amphetamines Screen U Benzodiazepines Scrn Urine Cocaine Screen U Marijuana (THC) Screen Ethyl Alcohol Thyroglobulin Antibody Thyroid Peroxidase Ab Respiratory Panel [place] Adenovirus (Rapid PCR) B.pert (TEM-PCR) B.parapertussis DNA PCR C. pneumoniae DNA (PCR) Coronavirus OC43 (PCR) Coronavirus HKU1 (PCR) Coronavirus 229E (PCR) Coronavirus NL63 (PCR) Hepatitis C Ab (EIA) HIV 1&2 Ab/P24 Ag 4thGn Human Metapneumovir PCR Influenza A (RT-PCR) Influenza Type A (PCR) Influenza B (RT-PCR) Influenza Type B (PCR) M. pneumoniae (PCR) Parainfluenza 1 (PCR) Parainfluenza 2 (PCR) Parainfluenza 3 (PCR) Parainfluenza 4 (PCR) RSV (PCR) RSV RNA Qual (PCR) Entero/Rhino (PCR) SARS-CoV-2 RNA (RT-PCR) Blood Type B Positive Antibody Screen NEGATIVE Crossmatch 08/26/23 08/27/23 08/27/23 15:01 06:07 15:05 WBC 10.5 RBC 2.55 L Hgb 8.2 L Hct 24.5 L MCV 96.1 MCH 32.2 MCHC 33.5 RDW 12.4 Plt Count 306 MPV 11.5 Immature Gran % (Auto) Neut % (Auto) Lymph % (Auto) [place] % (Auto) Eos % (Auto) Baso % (Auto) Lymph # (Auto) [place]s # (Auto) Eos # (Auto) Baso # (Auto) Abs Immat Gran (auto) Absolute Neuts (auto) Absolute Nucleated RBC 0.000 Nucleated RBC % (auto) 0.0 Smear Tech's Comments Hold Purple Top PT INR APTT Hold Blue Top O2 Saturation ABG pH at Pt Temp ABG pCO2 at Pt Temp ABG pO2 at Pt Temp ABG HCO3 ABG Base Excess (Actual) VBG pH VBG pCO2 VBG pO2 VBG HCO3 VBG O2 Saturation VBG Base Excess Sodium 138 Potassium 3.9 Chloride 103 Carbon Dioxide 25 Anion Gap 14 BUN 5 L Creatinine 0.66 Estim Creat Clear Calc 129.8 Estimated GFR > 60 POC Glucose Random Glucose Fasting Glucose 105 H Lactic Acid Lactic Acid F/U @ 2Hr Lactic Acid F/U @ 4Hr Calcium 8.4 Phosphorus Magnesium Total Bilirubin Direct Bilirubin AST ALT Alkaline Phosphatase Total Creatine Kinase Troponin I High Sens Total Protein Albumin Lipase TSH Free T4 Hold Red Top Urine Color Urine Appearance Urine pH Ur Specific [place] Urine Protein Urine Glucose (UA) Urine Ketones Urine Blood Urine Nitrite Ur Leukocyte Esterase Urine RBC Urine WBC Ur Squamous Epith Cells Urine Bacteria Hyaline Casts Urine Test CSF Tube Number CSF Volume CSF Appearance CSF Color CSF WBC CSF RBC CSF Lymphocytes CSF Monocytes % CSF Appearance (b) CSF Glucose CSF Total Protein Vancomycin Trough Random Vancomycin 8.1 L 19.2 Urine Opiates Screen Urine Fentanyl Screen Ur Barbiturates Screen Ur Phencyclidine Scrn Ur Amphetamines Screen U Benzodiazepines Scrn Urine Cocaine Screen U Marijuana (THC) Screen Ethyl Alcohol Thyroglobulin Antibody Thyroid Peroxidase Ab Respiratory Panel [place] Adenovirus (Rapid PCR) B.pert (TEM-PCR) B.parapertussis DNA PCR C. pneumoniae DNA (PCR) Coronavirus OC43 (PCR) Coronavirus HKU1 (PCR) Coronavirus 229E (PCR) Coronavirus NL63 (PCR) Hepatitis C Ab (EIA) HIV 1&2 Ab/P24 Ag 4thGn Human Metapneumovir PCR Influenza A (RT-PCR) Influenza Type A (PCR) Influenza B (RT-PCR) Influenza Type B (PCR) M. pneumoniae (PCR) Parainfluenza 1 (PCR) Parainfluenza 2 (PCR) Parainfluenza 3 (PCR) Parainfluenza 4 (PCR) RSV (PCR) RSV RNA Qual (PCR) Entero/Rhino (PCR) SARS-CoV-2 RNA (RT-PCR) Blood Type Antibody Screen Crossmatch 08/28/23 08/28/23 08/28/23 07:25 13:38 16:28 WBC RBC Hgb Hct MCV MCH MCHC RDW Plt Count MPV Immature Gran % (Auto) Neut % (Auto) Lymph % (Auto) [place] % (Auto) Eos % (Auto) Baso % (Auto) Lymph # (Auto) [place]s # (Auto) Eos # (Auto) Baso # (Auto) Abs Immat Gran (auto) Absolute Neuts (auto) Absolute Nucleated RBC Nucleated RBC % (auto) Smear Tech's Comments Hold Purple Top SEE NOTE PT INR APTT Hold Blue Top O2 Saturation ABG pH at Pt Temp ABG pCO2 at Pt Temp ABG pO2 at Pt Temp ABG HCO3 ABG Base Excess (Actual) VBG pH VBG pCO2 VBG pO2 VBG HCO3 VBG O2 Saturation VBG Base Excess Sodium Potassium Chloride Carbon Dioxide Anion Gap BUN Creatinine 0.72 Estim Creat Clear Calc 119.0 Estimated GFR > 60 POC Glucose Random Glucose Fasting Glucose Lactic Acid Lactic Acid F/U @ 2Hr Lactic Acid F/U @ 4Hr Calcium Phosphorus Magnesium Total Bilirubin Direct Bilirubin AST ALT Alkaline Phosphatase Total Creatine Kinase Troponin I High Sens Total Protein Albumin Lipase TSH Free T4 Hold Red Top Urine Color Urine Appearance Urine pH Ur Specific [place] Urine Protein Urine Glucose (UA) Urine Ketones Urine Blood Urine Nitrite Ur Leukocyte Esterase Urine RBC Urine WBC Ur Squamous Epith Cells Urine Bacteria Hyaline Casts Urine Test CSF Tube Number CSF Volume CSF Appearance CSF Color CSF WBC CSF RBC CSF Lymphocytes CSF Monocytes % CSF Appearance (b) CSF Glucose CSF Total Protein Vancomycin Trough Random Vancomycin 13.5 L Urine Opiates Screen Urine Fentanyl Screen Ur Barbiturates Screen Ur Phencyclidine Scrn Ur Amphetamines Screen U Benzodiazepines Scrn Urine Cocaine Screen U Marijuana (THC) Screen Ethyl Alcohol Thyroglobulin Antibody Thyroid Peroxidase Ab Respiratory Panel [place] Adenovirus (Rapid PCR) B.pert (TEM-PCR) B.parapertussis DNA PCR C. pneumoniae DNA (PCR) Coronavirus OC43 (PCR) Coronavirus HKU1 (PCR) Coronavirus 229E (PCR) Coronavirus NL63 (PCR) Hepatitis C Ab (EIA) HIV 1&2 Ab/P24 Ag 4thGn Human Metapneumovir PCR Influenza A (RT-PCR) Influenza Type A (PCR) Cancelled Influenza B (RT-PCR) Influenza Type B (PCR) Cancelled M. pneumoniae (PCR) Parainfluenza 1 (PCR) Parainfluenza 2 (PCR) Parainfluenza 3 (PCR) Parainfluenza 4 (PCR) RSV (PCR) RSV RNA Qual (PCR) Cancelled Entero/Rhino (PCR) SARS-CoV-2 RNA (RT-PCR) Cancelled Blood Type B Positive Antibody Screen NEGATIVE Crossmatch 08/28/23 08/29/23 08/29/23 19:00 07:04 14:19 WBC 8.1 RBC 2.32 L Hgb 7.6 L 7.2 L Hct 22.2 L 22.2 L MCV 95.7 MCH 31.0 MCHC 32.4 RDW 12.5 Plt Count 324 MPV 11.4 Immature Gran % (Auto) Neut % (Auto) Lymph % (Auto) [place] % (Auto) Eos % (Auto) Baso % (Auto) Lymph # (Auto) [place]s # (Auto) Eos # (Auto) Baso # (Auto) Abs Immat Gran (auto) Absolute Neuts (auto) Absolute Nucleated RBC 0.000 Nucleated RBC % (auto) 0.0 Smear Tech's Comments Hold Purple Top PT INR APTT Hold Blue Top O2 Saturation ABG pH at Pt Temp ABG pCO2 at Pt Temp ABG pO2 at Pt Temp ABG HCO3 ABG Base Excess (Actual) VBG pH VBG pCO2 VBG pO2 VBG HCO3 VBG O2 Saturation VBG Base Excess Sodium 136 Potassium 3.5 Chloride 102 Carbon Dioxide 23 Anion Gap 15 BUN 5 L Creatinine 0.75 Estim Creat Clear Calc 114.2 Estimated GFR > 60 POC Glucose Random Glucose Fasting Glucose 109 H Lactic Acid Lactic Acid F/U @ 2Hr Lactic Acid F/U @ 4Hr Calcium 8.4 Phosphorus Magnesium Total Bilirubin Direct Bilirubin AST ALT Alkaline Phosphatase Total Creatine Kinase Troponin I High Sens Total Protein Albumin Lipase TSH Free T4 Hold Red Top See Note Urine Color Urine Appearance Urine pH Ur Specific [place] Urine Protein Urine Glucose (UA) Urine Ketones Urine Blood Urine Nitrite Ur Leukocyte Esterase Urine RBC Urine WBC Ur Squamous Epith Cells Urine Bacteria Hyaline Casts Urine Test CSF Tube Number CSF Volume CSF Appearance CSF Color CSF WBC CSF RBC CSF Lymphocytes CSF Monocytes % CSF Appearance (b) CSF Glucose CSF Total Protein Vancomycin Trough Random Vancomycin 12.4 L Urine Opiates Screen Urine Fentanyl Screen Ur Barbiturates Screen Ur Phencyclidine Scrn Ur Amphetamines Screen U Benzodiazepines Scrn Urine Cocaine Screen U Marijuana (THC) Screen Ethyl Alcohol Thyroglobulin Antibody Thyroid Peroxidase Ab Respiratory Panel [place] Adenovirus (Rapid PCR) B.pert (TEM-PCR) B.parapertussis DNA PCR C. pneumoniae DNA (PCR) Coronavirus OC43 (PCR) Coronavirus HKU1 (PCR) Coronavirus 229E (PCR) Coronavirus NL63 (PCR) Hepatitis C Ab (EIA) Nonreactive HIV 1&2 Ab/P24 Ag 4thGn Nonreactive Human Metapneumovir PCR Influenza A (RT-PCR) Influenza Type A (PCR) Influenza B (RT-PCR) Influenza Type B (PCR) M. pneumoniae (PCR) Parainfluenza 1 (PCR) Parainfluenza 2 (PCR) Parainfluenza 3 (PCR) Parainfluenza 4 (PCR) RSV (PCR) RSV RNA Qual (PCR) Entero/Rhino (PCR) SARS-CoV-2 RNA (RT-PCR) Blood Type Antibody Screen Crossmatch 08/30/23 08/30/23 08/31/23 06:00 14:42 10:02 WBC RBC Hgb Hct MCV MCH MCHC RDW Plt Count MPV Immature Gran % (Auto) Neut % (Auto) Lymph % (Auto) Stearns % (Auto) Eos % (Auto) Baso % (Auto) Lymph # (Auto) Stearns # (Auto) Eos # (Auto) Baso # (Auto) Abs Immat Gran (auto) Absolute Neuts (auto) Absolute Nucleated RBC Nucleated RBC % (auto) Smear Tech's Comments Hold Purple Top SEE NOTE PT INR APTT Hold Blue Top O2 Saturation ABG pH at Pt Temp ABG pCO2 at Pt Temp ABG pO2 at Pt Temp ABG HCO3 ABG Base Excess (Actual) VBG pH VBG pCO2 VBG pO2 VBG HCO3 VBG O2 Saturation VBG Base Excess Sodium Potassium Chloride Carbon Dioxide Anion Gap BUN Creatinine 0.74 0.70 Estim Creat Clear Calc 115.8 122.4 Estimated GFR > 60 > 60 POC Glucose Random Glucose Fasting Glucose Lactic Acid Lactic Acid F/U @ 2Hr Lactic Acid F/U @ 4Hr Calcium Phosphorus Magnesium Total Bilirubin Direct Bilirubin AST ALT Alkaline Phosphatase Total Creatine Kinase Troponin I High Sens Total Protein Albumin Lipase TSH Free T4 Hold Red Top Urine Color Urine Appearance Urine pH Ur Specific [place] Urine Protein Urine Glucose (UA) Urine Ketones Urine Blood Urine Nitrite Ur Leukocyte Esterase Urine RBC Urine WBC Ur Squamous Epith Cells Urine Bacteria Hyaline Casts Urine Test CSF Tube Number CSF Volume CSF Appearance CSF Color CSF WBC CSF RBC CSF Lymphocytes CSF Monocytes % CSF Appearance (b) CSF Glucose CSF Total Protein Vancomycin Trough Random Vancomycin 12.9 L Urine Opiates Screen Urine Fentanyl Screen Ur Barbiturates Screen Ur Phencyclidine Scrn Ur Amphetamines Screen U Benzodiazepines Scrn Urine Cocaine Screen U Marijuana (THC) Screen Ethyl Alcohol Thyroglobulin Antibody Thyroid Peroxidase Ab Respiratory Panel Tate Adenovirus (Rapid PCR) B.pert (TEM-PCR) B.parapertussis DNA PCR C. pneumoniae DNA (PCR) Coronavirus OC43 (PCR) Coronavirus HKU1 (PCR) Coronavirus 229E (PCR) Coronavirus NL63 (PCR) Hepatitis C Ab (EIA) HIV 1&2 Ab/P24 Ag 4thGn Human Metapneumovir PCR Influenza A (RT-PCR) Influenza Type A (PCR) Influenza B (RT-PCR) Influenza Type B (PCR) M. pneumoniae (PCR) Parainfluenza 1 (PCR) Parainfluenza 2 (PCR) Parainfluenza 3 (PCR) Parainfluenza 4 (PCR) RSV (PCR) RSV RNA Qual (PCR) Entero/Rhino (PCR) SARS-CoV-2 RNA (RT-PCR) Blood Type Antibody Screen Crossmatch 08/31/23 08/31/23 08/31/23 13:49 19:20 19:57 WBC 5.6 RBC 2.01 L Hgb 6.2 L* Hct 19.7 L* MCV 98.0 MCH 30.8 MCHC 31.5 RDW 13.0 Plt Count 331 MPV 10.8 Immature Gran % (Auto) Neut % (Auto) Lymph % (Auto) Stearns % (Auto) Eos % (Auto) Baso % (Auto) Lymph # (Auto) Stearns # (Auto) Eos # (Auto) Baso # (Auto) Abs Immat Gran (auto) Absolute Neuts (auto) Absolute Nucleated RBC 0.000 Nucleated RBC % (auto) 0.0 Smear Tech's Comments Hold Purple Top PT INR APTT Hold Blue Top O2 Saturation ABG pH at Pt Temp ABG pCO2 at Pt Temp ABG pO2 at Pt Temp ABG HCO3 ABG Base Excess (Actual) VBG pH VBG pCO2 VBG pO2 VBG HCO3 VBG O2 Saturation VBG Base Excess Sodium 136 Potassium 3.5 Chloride 102 Carbon Dioxide 23 Anion Gap 15 BUN 6 L Creatinine 0.74 Estim Creat Clear Calc 115.8 Estimated GFR > 60 POC Glucose Random Glucose 98 Fasting Glucose Lactic Acid Lactic Acid F/U @ 2Hr Lactic Acid F/U @ 4Hr Calcium 8.5 Phosphorus Magnesium Total Bilirubin Direct Bilirubin AST ALT Alkaline Phosphatase Total Creatine Kinase Troponin I High Sens Total Protein Albumin Lipase TSH Free T4 Hold Red Top Urine Color Urine Appearance Urine pH Ur Specific [place] Urine Protein Urine Glucose (UA) Urine Ketones Urine Blood Urine Nitrite Ur Leukocyte Esterase Urine RBC Urine WBC Ur Squamous Epith Cells Urine Bacteria Hyaline Casts Urine Test CSF Tube Number CSF Volume CSF Appearance CSF Color CSF WBC CSF RBC CSF Lymphocytes CSF Monocytes % CSF Appearance (b) CSF Glucose CSF Total Protein Vancomycin Trough Random Vancomycin 17.5 Urine Opiates Screen Urine Fentanyl Screen Ur Barbiturates Screen Ur Phencyclidine Scrn Ur Amphetamines Screen U Benzodiazepines Scrn Urine Cocaine Screen U Marijuana (THC) Screen Ethyl Alcohol Thyroglobulin Antibody Thyroid Peroxidase Ab Respiratory Panel Tate Adenovirus (Rapid PCR) B.pert (TEM-PCR) B.parapertussis DNA PCR C. pneumoniae DNA (PCR) Coronavirus OC43 (PCR) Coronavirus HKU1 (PCR) Coronavirus 229E (PCR) Coronavirus NL63 (PCR) Hepatitis C Ab (EIA) HIV 1&2 Ab/P24 Ag 4thGn Human Metapneumovir PCR Influenza A (RT-PCR) Influenza Type A (PCR) Influenza B (RT-PCR) Influenza Type B (PCR) M. pneumoniae (PCR) Parainfluenza 1 (PCR) Parainfluenza 2 (PCR) Parainfluenza 3 (PCR) Parainfluenza 4 (PCR) RSV (PCR) RSV RNA Qual (PCR) Entero/Rhino (PCR) SARS-CoV-2 RNA (RT-PCR) Blood Type B Positive Antibody Screen NEGATIVE Crossmatch See Detail 09/01/23 09/01/23 09/01/23 06:34 08:40 10:27 WBC 5.1 RBC 2.31 L Hgb 7.2 L Hct 22.1 L MCV 95.7 MCH 31.2 MCHC 32.6 RDW 13.2 Plt Count 334 MPV 11.0 Immature Gran % (Auto) Neut % (Auto) Lymph % (Auto) Stearns % (Auto) Eos % (Auto) Baso % (Auto) Lymph # (Auto) Stearns # (Auto) Eos # (Auto) Baso # (Auto) Abs Immat Gran (auto) Absolute Neuts (auto) Absolute Nucleated RBC 0.000 Nucleated RBC % (auto) 0.0 Smear Tech's Comments Hold Purple Top PT INR APTT Hold Blue Top O2 Saturation ABG pH at Pt Temp ABG pCO2 at Pt Temp ABG pO2 at Pt Temp ABG HCO3 ABG Base Excess (Actual) VBG pH VBG pCO2 VBG pO2 VBG HCO3 VBG O2 Saturation VBG Base Excess Sodium 136 Potassium 3.5 Chloride 105 Carbon Dioxide 21 L Anion Gap 14 BUN 7 L Creatinine 0.72 Estim Creat Clear Calc 119.0 Estimated GFR > 60 POC Glucose Random Glucose 101 Fasting Glucose Lactic Acid 0.8 Lactic Acid F/U @ 2Hr Lactic Acid F/U @ 4Hr Calcium 8.2 L Phosphorus Magnesium Total Bilirubin 0.7 Direct Bilirubin 0.2 AST 30 ALT 26 Alkaline Phosphatase 42 Total Creatine Kinase Troponin I High Sens Total Protein 5.2 L Albumin 2.8 L Lipase TSH Free T4 Hold Red Top Urine Color Yellow Urine Appearance Cloudy Urine pH 8.0 Ur Specific [place] 1.010 Urine Protein Negative Urine Glucose (UA) Negative Urine Ketones Negative Urine Blood Trace H Urine Nitrite Negative Ur Leukocyte Esterase Small (1+) H Urine RBC >20 H Urine WBC 0-5 Ur Squamous Epith Cells 0-2 Urine Bacteria None Seen Hyaline Casts 0-2 Urine Test CSF Tube Number CSF Volume CSF Appearance CSF Color CSF WBC CSF RBC CSF Lymphocytes CSF Monocytes % CSF Appearance (b) CSF Glucose CSF Total Protein Vancomycin Trough Random Vancomycin Urine Opiates Screen POSITIVE H Urine Fentanyl Screen Not Detected Ur Barbiturates Screen Not Detected Ur Phencyclidine Scrn Not Detected Ur Amphetamines Screen Not Detected U Benzodiazepines Scrn Not Detected Urine Cocaine Screen Not Detected U Marijuana (THC) Screen Not Detected Ethyl Alcohol Thyroglobulin Antibody Thyroid Peroxidase Ab Respiratory Panel Tate Adenovirus (Rapid PCR) B.pert (TEM-PCR) B.parapertussis DNA PCR C. pneumoniae DNA (PCR) Coronavirus OC43 (PCR) Coronavirus HKU1 (PCR) Coronavirus 229E (PCR) Coronavirus NL63 (PCR) Hepatitis C Ab (EIA) HIV 1&2 Ab/P24 Ag 4thGn Human Metapneumovir PCR Influenza A (RT-PCR) Influenza Type A (PCR) Influenza B (RT-PCR) Influenza Type B (PCR) M. pneumoniae (PCR) Parainfluenza 1 (PCR) Parainfluenza 2 (PCR) Parainfluenza 3 (PCR) Parainfluenza 4 (PCR) RSV (PCR) RSV RNA Qual (PCR) Entero/Rhino (PCR) SARS-CoV-2 RNA (RT-PCR) Blood Type Antibody Screen Crossmatch 09/01/23 09/02/23 09/02/23 14:54 06:23 13:47 WBC 2.8 L RBC 2.44 L Hgb 7.6 L Hct 23.4 L MCV 95.9 MCH 31.1 MCHC 32.5 RDW 13.2 Plt Count 325 MPV 10.6 Immature Gran % (Auto) 0.4 Neut % (Auto) 51.9 Lymph % (Auto) 38.4 Stearns % (Auto) 7.2 Eos % (Auto) 1.4 Baso % (Auto) 0.7 Lymph # (Auto) 1.1 L Stearns # (Auto) 0.2 Eos # (Auto) 0.0 Baso # (Auto) 0.0 Abs Immat Gran (auto) 0.01 Absolute Neuts (auto) 1.5 L Absolute Nucleated RBC 0.000 Nucleated RBC % (auto) 0.0 Smear Tech's Comments Hold Purple Top PT INR APTT Hold Blue Top O2 Saturation ABG pH at Pt Temp ABG pCO2 at Pt Temp ABG pO2 at Pt Temp ABG HCO3 ABG Base Excess (Actual) VBG pH VBG pCO2 VBG pO2 VBG HCO3 VBG O2 Saturation VBG Base Excess Sodium 135 Potassium 3.3 Chloride 105 Carbon Dioxide 21 L Anion Gap 12 BUN 4 L Creatinine 0.77 Estim Creat Clear Calc 111.3 Estimated GFR > 60 POC Glucose Random Glucose 94 Fasting Glucose Lactic Acid Lactic Acid F/U @ 2Hr Lactic Acid F/U @ 4Hr Calcium 8.5 Phosphorus Magnesium Total Bilirubin Direct Bilirubin AST ALT Alkaline Phosphatase Total Creatine Kinase Troponin I High Sens Total Protein Albumin Lipase TSH Free T4 Hold Red Top Urine Color Urine Appearance Urine pH Ur Specific [place] Urine Protein Urine Glucose (UA) Urine Ketones Urine Blood Urine Nitrite Ur Leukocyte Esterase Urine RBC Urine WBC Ur Squamous Epith Cells Urine Bacteria Hyaline Casts Urine Test CSF Tube Number CSF Volume CSF Appearance CSF Color CSF WBC CSF RBC CSF Lymphocytes CSF Monocytes % CSF Appearance (b) CSF Glucose CSF Total Protein Vancomycin Trough 13.1 Random Vancomycin 14.3 L Urine Opiates Screen Urine Fentanyl Screen Ur Barbiturates Screen Ur Phencyclidine Scrn Ur Amphetamines Screen U Benzodiazepines Scrn Urine Cocaine Screen U Marijuana (THC) Screen Ethyl Alcohol Thyroglobulin Antibody Thyroid Peroxidase Ab Respiratory Panel [place] Adenovirus (Rapid PCR) B.pert (TEM-PCR) B.parapertussis DNA PCR C. pneumoniae DNA (PCR) Coronavirus OC43 (PCR) Coronavirus HKU1 (PCR) Coronavirus 229E (PCR) Coronavirus NL63 (PCR) Hepatitis C Ab (EIA) HIV 1&2 Ab/P24 Ag 4thGn Human Metapneumovir PCR Influenza A (RT-PCR) Influenza Type A (PCR) Influenza B (RT-PCR) Influenza Type B (PCR) M. pneumoniae (PCR) Parainfluenza 1 (PCR) Parainfluenza 2 (PCR) Parainfluenza 3 (PCR) Parainfluenza 4 (PCR) RSV (PCR) RSV RNA Qual (PCR) Entero/Rhino (PCR) SARS-CoV-2 RNA (RT-PCR) Blood Type Antibody Screen Crossmatch 09/03/23 09/03/23 09/04/23 07:10 13:44 06:32 WBC 3.9 L RBC 2.66 L Hgb 8.3 L Hct 25.8 L MCV 97.0 MCH 31.2 MCHC 32.2 RDW 13.3 Plt Count 303 MPV 10.9 Immature Gran % (Auto) 0.5 H Neut % (Auto) 40.5 L Lymph % (Auto) 48.8 H Stearns % (Auto) 5.1 Eos % (Auto) 4.6 H Baso % (Auto) 0.5 Lymph # (Auto) 1.9 Stearns # (Auto) 0.2 Eos # (Auto) 0.2 Baso # (Auto) 0.0 Abs Immat Gran (auto) 0.02 Absolute Neuts (auto) 1.6 L Absolute Nucleated RBC 0.000 Nucleated RBC % (auto) 0.0 Smear Tech's Comments Hold Purple Top SEE NOTE PT INR APTT Hold Blue Top O2 Saturation ABG pH at Pt Temp ABG pCO2 at Pt Temp ABG pO2 at Pt Temp ABG HCO3 ABG Base Excess (Actual) VBG pH VBG pCO2 VBG pO2 VBG HCO3 VBG O2 Saturation VBG Base Excess Sodium Potassium Chloride Carbon Dioxide Anion Gap BUN Creatinine 0.70 0.79 Estim Creat Clear Calc 122.4 108.5 Estimated GFR > 60 > 60 POC Glucose Random Glucose Fasting Glucose Lactic Acid Lactic Acid F/U @ 2Hr Lactic Acid F/U @ 4Hr Calcium Phosphorus Magnesium Total Bilirubin Direct Bilirubin AST ALT Alkaline Phosphatase Total Creatine Kinase Troponin I High Sens Total Protein Albumin Lipase TSH Free T4 Hold Red Top Urine Color Urine Appearance Urine pH Ur Specific [place] Urine Protein Urine Glucose (UA) Urine Ketones Urine Blood Urine Nitrite Ur Leukocyte Esterase Urine RBC Urine WBC Ur Squamous Epith Cells Urine Bacteria Hyaline Casts Urine Test CSF Tube Number CSF Volume CSF Appearance CSF Color CSF WBC CSF RBC CSF Lymphocytes CSF Monocytes % CSF Appearance (b) CSF Glucose CSF Total Protein Vancomycin Trough Random Vancomycin 13.4 L Urine Opiates Screen Urine Fentanyl Screen Ur Barbiturates Screen Ur Phencyclidine Scrn Ur Amphetamines Screen U Benzodiazepines Scrn Urine Cocaine Screen U Marijuana (THC) Screen Ethyl Alcohol Thyroglobulin Antibody Thyroid Peroxidase Ab Respiratory Panel [place] Adenovirus (Rapid PCR) B.pert (TEM-PCR) B.parapertussis DNA PCR C. pneumoniae DNA (PCR) Coronavirus OC43 (PCR) Coronavirus HKU1 (PCR) Coronavirus 229E (PCR) Coronavirus NL63 (PCR) Hepatitis C Ab (EIA) HIV 1&2 Ab/P24 Ag 4thGn Human Metapneumovir PCR Influenza A (RT-PCR) Influenza Type A (PCR) Influenza B (RT-PCR) Influenza Type B (PCR) M. pneumoniae (PCR) Parainfluenza 1 (PCR) Parainfluenza 2 (PCR) Parainfluenza 3 (PCR) Parainfluenza 4 (PCR) RSV (PCR) RSV RNA Qual (PCR) Entero/Rhino (PCR) SARS-CoV-2 RNA (RT-PCR) Blood Type Antibody Screen Crossmatch 09/04/23 09/05/23 09/05/23 14:34 06:17 08:10 WBC 4.9 RBC 2.33 L Hgb 7.1 L Hct 21.5 L MCV 92.3 MCH 30.5 MCHC 33.0 RDW 13.1 Plt Count 258 MPV 11.2 Immature Gran % (Auto) Neut % (Auto) Lymph % (Auto) Stearns % (Auto) Eos % (Auto) Baso % (Auto) Lymph # (Auto) Stearns # (Auto) Eos # (Auto) Baso # (Auto) Abs Immat Gran (auto) Absolute Neuts (auto) Absolute Nucleated RBC 0.000 Nucleated RBC % (auto) 0.0 Smear Tech's Comments Hold Purple Top SEE NOTE PT INR APTT Hold Blue Top O2 Saturation ABG pH at Pt Temp ABG pCO2 at Pt Temp ABG pO2 at Pt Temp ABG HCO3 ABG Base Excess (Actual) VBG pH VBG pCO2 VBG pO2 VBG HCO3 VBG O2 Saturation VBG Base Excess Sodium 134 L Potassium 3.3 Chloride 104 Carbon Dioxide 21 L Anion Gap 12 BUN 9 Creatinine 0.73 0.70 Estim Creat Clear Calc 117.4 122.4 Estimated GFR > 60 > 60 POC Glucose Random Glucose 85 Fasting Glucose Lactic Acid Lactic Acid F/U @ 2Hr Lactic Acid F/U @ 4Hr Calcium 8.6 Phosphorus Magnesium Total Bilirubin Direct Bilirubin AST ALT Alkaline Phosphatase Total Creatine Kinase Troponin I High Sens Total Protein Albumin Lipase TSH Free T4 Hold Red Top Urine Color Urine Appearance Urine pH Ur Specific [place] Urine Protein Urine Glucose (UA) Urine Ketones Urine Blood Urine Nitrite Ur Leukocyte Esterase Urine RBC Urine WBC Ur Squamous Epith Cells Urine Bacteria Hyaline Casts Urine Test CSF Tube Number CSF Volume CSF Appearance CSF Color CSF WBC CSF RBC CSF Lymphocytes CSF Monocytes % CSF Appearance (b) CSF Glucose CSF Total Protein Vancomycin Trough Random Vancomycin 15.1 Urine Opiates Screen Urine Fentanyl Screen Ur Barbiturates Screen Ur Phencyclidine Scrn Ur Amphetamines Screen U Benzodiazepines Scrn Urine Cocaine Screen U Marijuana (THC) Screen Ethyl Alcohol Thyroglobulin Antibody Thyroid Peroxidase Ab Respiratory Panel [place] Adenovirus (Rapid PCR) B.pert (TEM-PCR) B.parapertussis DNA PCR C. pneumoniae DNA (PCR) Coronavirus OC43 (PCR) Coronavirus HKU1 (PCR) Coronavirus 229E (PCR) Coronavirus NL63 (PCR) Hepatitis C Ab (EIA) HIV 1&2 Ab/P24 Ag 4thGn Nonreactive Human Metapneumovir PCR Influenza A (RT-PCR) Influenza Type A (PCR) Influenza B (RT-PCR) Influenza Type B (PCR) M. pneumoniae (PCR) Parainfluenza 1 (PCR) Parainfluenza 2 (PCR) Parainfluenza 3 (PCR) Parainfluenza 4 (PCR) RSV (PCR) RSV RNA Qual (PCR) Entero/Rhino (PCR) SARS-CoV-2 RNA (RT-PCR) Blood Type Antibody Screen Crossmatch Airway Mallampati Class: II TM Dist: >3cm Neck ROM: Full Heart: rrr Lungs: cta Assessment and Plan Assessment Anesthesia Assessment: Anesthesia Plan Discussed and Chart Reviewed Final Anesthetic Review Family History of Problems with Anesthesia: No History of Problems with Anesthesia: No NPO: Yes ASA Class: III Final Preanesthetic Review: No Changes in Pt Med Stat, Meds/Allgs Chart Reviewed, Consent Obtained/Reviewed and Anes Risks/Benef Reviewed Patient Risk: Intermediate Procedure Risk: Low Anesthetic Plan Anesthetic Plan: GA and Agree w/ Assess. and Plan Disposition: Standard PACU
--- NOTE | 2023-09-05 13:11 | PC.NURSE ---
pt procedure delayed for type and screened, orders placed at 1031 for urgent draw and for 2 units prbc transfusion, pt not drawn by phlebotomy on floor. No mention of prbc transfusion orders in report. type and screen drawn completed in preop, prbc to be given in OR. Update to floor RN given.
[2023-09-05] MEDS: HYDROmorphone HCl 0.5 MG/0.5 ML SYRINGE IVPUSH ×3 (14:11→14:21)
--- NOTE | 2023-09-05 14:15 | PM.OP ---
Brief Operative Note Date of Service: 09/05/23 Pre-op diagnosis: left forearm open wound Post-op diagnosis: same Procedure: Irrigation and debridement left forearm WOund vac placement Surgeon: Devang Long MD Anesthesia: GLMA Was an Electronics Teacher used for this Procedure?: Yes Electronics Teacher: Zackary Galvez Estimated blood loss (mL): 25 IV fluids (mL): 500 Pathology: none sent Condition: stable Disposition: PACU
[2023-09-05] MEDS: Doxycycline Hyclate 100 MG in 0.9 % Sodium Chloride 250 ML 250 MG IV (15:16)
--- NOTE | 2023-09-05 16:03 | P.PNIM_ITS ---
Subjective Subjective Date of Service: 09/06/23 Interval History: Being followed for compartment syndrome patient resting comfortably father at bedside concern the patient is very anxious, is scheduled for irrigation and debridement of left forearm wound, had low-grade fever this morning, denies headache, no lightheadedness, no dizziness, is NPO, no acute overnight events. Review of Systems All other system reviewed and negative. Physical Exam 2 Vital Signs: Vital Signs: Last Vital Signs Temp 97.6 F 09/05/23 15:26 Pulse 91 09/05/23 15:26 Resp 18 09/05/23 15:26 BP 106/56 L 09/05/23 15:26 Pulse Ox 98 09/05/23 15:26 O2 Del Method Room Air 09/05/23 15:26 O2 Flow Rate 4 09/05/23 14:06 FiO2 35 08/19/23 07:58 BMI result Body Mass Index 29.3 Const: Other: General resting comfortably in no acute distress. Neck supple no JVD. CVS regular rate rhythm, Respiratory lungs clear to auscultation, no respiratory distress, no wheeze, no rhonchi. Gastrointestinal abdomen soft, non tender, bowel sounds audible, no guarding , no rigidity. Lower Extremities no edema. Left forearm wound VAC in place with no surrounding redness, sutures intact, decreased sensation and strength left forearm. Psych appropriate affect/mild anxiety Objective Data Active Medications Acetaminophen (Acetaminophen 325 Mg Tablet) 650 mg PO Q4H PRN PRN Reason: fever or pain Last Admin: 09/05/23 07:41 Dose: 650 mg Documented By: JEAN Acetaminophen (Acetaminophen Supp 650 Mg Supp.Rect) 650 mg CO Q4H PRN PRN Reason: Fever Carvedilol (Carvedilol 3.125 Mg Tablet) 3.125 mg PO BID [facility]; Protocol Last Admin: 09/05/23 08:48 Dose: 3.125 mg Documented By: JEAN Diphenhydramine HCl (Diphenhydramine Hcl 25 Mg Capsule) 25 mg PO Q6H PRN PRN Reason: itching Last Admin: 09/05/23 07:41 Dose: 25 mg Documented By: JEAN Docusate Sodium (Docusate Sodium 100 Mg Capsule) 100 mg PO BID [facility] Last Admin: 09/05/23 07:39 Dose: Not Given Documented By: JEAN Non-Admin Reason: Patient Refused Gabapentin (Gabapentin 100 Mg Capsule) 200 mg PO BID JEANINE Last Admin: 09/05/23 08:47 Dose: 200 mg Documented By: JEAN Hydrocortisone (Hydrocortisone 1 % Cream 28.35 Gm Tube) 1 appl TOPICAL DAILY JEANINE; Protocol Last Admin: 09/05/23 07:37 Dose: Not Given Documented By: JEAN Non-Admin Reason: Patient Refused Hydromorphone HCl (Hydromorphone Hcl 2 Mg/Ml Vial) 2 mg IVPUSH Q3H PRN; Protocol PRN Reason: severe pain Last Admin: 09/05/23 08:47 Dose: 2 mg Documented By: JEAN Hydromorphone HCl (Hydromorphone Hcl 2 Mg Tablet) 3 mg PO Q3H JEANINE Last Admin: 09/05/23 15:07 Dose: Not Given Documented By: WESTLEY Non-Admin Reason: Not In Room Doxycycline Hyclate 100 mg/ (Sodium Chloride) 250 mls @ 166.67 mls/hr IV Q12H [facility] Last Admin: 09/05/23 15:16 Dose: 250 mls/hr Documented By: WESTLEY Lactulose (Lactulose 20 Gm/30 Ml Solution) 20 gm PO TID JEANINE Last Admin: 09/01/23 07:45 Dose: Not Given Documented By: YANNI Non-Admin Reason: diarrhea Lorazepam (Lorazepam 0.5 Mg Tablet) 0.5 mg PO Q8H PRN PRN Reason: Anxiety Last Admin: 09/05/23 09:55 Dose: 0.5 mg Documented By: JEAN Morphine Sulfate (Morphine Sulfate Er 15 Mg Tablet.Er) 15 mg PO Q8H JEANINE Last Admin: 09/05/23 15:15 Dose: 15 mg Documented By: WESTLEY Sodium Chloride (0.9 % Sodium Chloride Flush 3 Ml Syringe) 3 ml IVFLUSH QSHIFT [facility] Last Admin: 09/05/23 07:41 Dose: 3 ml Documented By: JEAN Labs 09/06/23 05:44 09/06/23 05:44 Labs: Laboratory Results - last 24 hr 09/05/23 09/05/23 09/05/23 06:17 08:10 12:58 MCV 92.3 MCH 30.5 MCHC 33.0 RDW 13.1 Plt Count 258 MPV 11.2 Absolute Nucleated RBC 0.000 Nucleated RBC % (auto) 0.0 Hold Purple Top SEE NOTE Anion Gap 12 Estim Creat Clear Calc 117.4 122.4 Estimated GFR > 60 > 60 Random Glucose 85 Calcium 8.6 HIV 1&2 Ab/P24 Ag 4thGn Nonreactive Blood Type B Positive Antibody Screen NEGATIVE Crossmatch See Detail Microbiology Microbiology Results: Microbiology 09/03/23 20:38 Blood Culture - Preliminary Blood - Venous No growth after 24 hours. 09/03/23 20:38 Blood Culture - Preliminary Blood - Venous No growth after 24 hours. 08/30/23 14:41 Blood Culture - Final Blood - Venous No growth after 5 days. 08/30/23 14:41 Blood Culture - Final Blood - Venous No growth after 5 days. Assessment and Plan (1) Fever: Status: Acute (2) Compartment syndrome of forearm: Status: Acute Plan This is a 33 year old lady who presented with AMS from overdose developed left arm Compartment syndrome, rhabdo, aspiration, CMP requiring ICU admission and intubation with 4 surgeries to relieve the compartment, downgraded to the medical floor 08/21 now with persistent fever. Compartment syndrome left forearm s/p fasciotomy, multiple debridements ortho, vascular, wound team following, wound vac in place. wound vac changed 09/02 with no abscess or purulent discharge seen. Plan to return to OR today on IV vancomycin, zosyn stopped due to likely cause of drug fever and leukopenia. Spoke with ID today she recommend to DC IV vanco as well, due to concern for drug fever and place patient on IV doxycycline. Good pain control, weaning narcotics , Benadryl for itching fevers Persistent recurrent fevers since 08/29. TLC removed blood cultures negative, UA negative, urine culture 09/01 neg- no respiratory symptoms, CT scan of abdomen/pelvis negative 09/01 LUE US negative for DVT, RLE US negative atelectasis on CT - encourage incentive spirometry Blood cultures 09/03 negative zosyn stopped for concern of drug fever patient continued to have fever case discussed with ID she recommend to DC vancomycin and place patient on iv doxycycline Differential diagnosis drug fevers/atelectasis/deep muscle injury Acute Normocytic anemia likely component of blood loss from multiple surgeries and acute illness s/p 1U RBCs 08/31 with improvement of H/H, today hematocrit dropped to 21.5 will transfuse 2 units of packed RBC since requiring surgical debridement with risk for bleeding. 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 - likely secondary to prolonged compression neurology evaluation appreciated, [place] [facility] follow up seen by medical illustrator, recs appreciated outpatient EMG studies continue PT/OT inpatient New onset acute Cardiomyopathy Echo on 08/17 showed 20% repeat Echo per ICU showed improvement echo consistent with takotsubo cardiomyopathy per cardiology cardiology rec starting carvedilol and consider KENNETH-I if able to tolerate, so far bp has been soft rec repeat ECHO 4 weeks from initial echo - due around 09/14 Aspiration pneumonia completed course of IV Vanco and Meropenem Rhabdo toxic and mechanical secondary drug OD and prolonged downtime CPK [id number] on admission, trended down with IVF Elevated LFTs LFTs have normalized Acute hypokalemia resolved with replacement Constipation Laxatives prn; hold for diarrhea Drug abuse Addiction team following New onset seizure Neurology eval one time incident, no need to treat, no recurrent seizures noted DVT PPx- SCDs - due to ongoing interventions for left arm, anemia reason for continued hospitalization: ongoing surgical interventions, fever Time Spent With Patient Time: Total time managing care of this patient today ____ minutes. Quality Stroke Does the patient have a stroke diagnosis?: No VTE Prior VTE?: No VTE Risk Level:: Medical - moderate - high VTE Device Contraindication: N/A - Device Ordered VTE Drug Contraindication: Treatment Not Indicated
[2023-09-05] MEDS: HYDROmorphone HCl 2 MG TABLET 3 MG PO ×3 (16:52→22:58)
[2023-09-05] MEDS: Potassium Chloride ER 20 MEQ TAB.ER.PRT PO (21:57)
[2023-09-06] VITALS (15 sets, daily range): BP systolic 100–119; BP diastolic 56–65; PULSE 91–113; RESP 16–20; TEMP 36.4–38.9; O2SAT 94–100
[2023-09-06] MEDS: HYDROmorphone HCl 2 MG TABLET 3 MG PO ×5 (02:17→22:56)
[2023-09-06] MEDS: diphenhydrAMINE HCL 25 MG CAPSULE PO ×2 (03:33→22:58)
[2023-09-06] MEDS: HYDROmorphone HCl 2 MG/ML VIAL IVPUSH ×2 (04:09→11:22)
[2023-09-06] MEDS: Acetaminophen 325 MG TABLET 650 MG PO ×4 (04:38→20:24)
[2023-09-06 06:07] LABS: Hematocrit 27.4 % (37.0-47.0); Hemoglobin 9.2 g/dl (12.0-16.0)
[2023-09-06 06:25] LABS: Creatinine Clr Calc Pharmacy 115.8; Estimated Glomerular Filt Rate > 60
--- NOTE | 2023-09-06 08:01 | PM.PNORT ---
Subjective Subjective Date of Service: 09/06/23 Principal diagnosis: left brachial plexus neuropathy and compartment syndrome forearm Interval history: Left forearm pain managed Wound vac in place No overnight events Patient is resting comfortably in bed No additional complaints Physical Exam Vital Signs: Vital Signs: Last Vital Signs Temp 98.4 F 09/06/23 07:30 Pulse 91 09/06/23 07:30 Resp 20 09/06/23 07:30 BP 112/65 09/06/23 07:30 Pulse Ox 100 09/06/23 07:30 O2 Del Method Room Air 09/06/23 07:30 O2 Flow Rate 4 09/05/23 14:06 FiO2 35 08/19/23 07:58 BMI result Body Mass Index 29.3 Extrem: Other: left forearm wound vac holding suction arm and forearm soft Procedures Date of Service Date of Service: 09/06/23 Progress Note: A&P Assessment and plan (1) Brachial plexopathy: Status: Acute (2) Compartment syndrome of forearm: Status: Acute Assessment and Plan: Stable with no motor function sensation improving over dorsum of hand but dense numbness over volar forearm Wound vac in place with appropriate suctioning Pain management Time Spent With Patient Time: Total time managing care of this patient today ____ minutes. Quality Stroke Does the patient have a stroke diagnosis?: No VTE Prior VTE?: No VTE Risk Level:: Medical - moderate - high VTE Device Contraindication: N/A - Device Ordered VTE Drug Contraindication: Treatment Not Indicated
[2023-09-06] MEDS: 0.9 % Sodium Chloride Flush 3 ML SYRINGE IVFLUSH ×3 (08:53→20:26)
[2023-09-06] MEDS: carvediloL 3.125 MG TABLET PO (08:54)
[2023-09-06] MEDS: Gabapentin 100 MG CAPSULE 200 MG PO ×2 (08:54→20:24)
[2023-09-06] MEDS: Morphine Sulfate ER 15 MG TABLET.ER PO ×3 (08:54→22:57)
--- NOTE | 2023-09-06 10:22 | MHC.CM.PN ---
Per ROUNDS discussion, Patient is not yet medically cleared for dc (Wound vac and pain management); PT is recommending Acute Rehab and CM will continue to follow.
[2023-09-06] MEDS: Doxycycline Monohydrate 100 MG CAPSULE PO ×2 (11:22→22:56)
--- NOTE | 2023-09-06 13:08 | HO.POSTANES ---
Post Anesthesia Evaluation Post Anesthesia Evaluation Date of Service: 09/06/23 Vital Signs: Vital Signs Temp Pulse Resp BP Pulse Ox O2 Del Method 09/06/23 11:22 16 09/06/23 11:11 98.5 F 95 20 111/57 L 94 Room Air 09/06/23 07:30 98.4 F 91 20 112/65 100 Room Air 09/06/23 04:37 100.3 F 09/06/23 03:10 97.5 F 107 H 20 114/61 97 Room Air Anesthesia: General Mental Status: Awake Pain Control: Satisfactory Nausea/Vomiting: None Hydration: Adequate Anesthesia-Related Issues: No Anes. Related Issues
--- NOTE | 2023-09-06 14:36 | P.PNIM_ITS ---
Subjective Subjective Date of Service: 09/06/23 Interval History: Complaining of left foot and right upper extremity pain, no high-grade fevers in last 24 hours , complaining of burning with IV doxycycline, , no diarrhea, no nausea, no vomiting no abdominal pain tolerating diet less anxious, Review of Systems All other system reviewed and negative. Physical Exam 2 Vital Signs: Vital Signs: Last Vital Signs Temp 98.9 F 09/06/23 14:22 Pulse 95 09/06/23 14:14 Resp 16 09/06/23 11:22 BP 111/57 L 09/06/23 14:14 Pulse Ox 94 09/06/23 14:14 O2 Del Method Room Air 09/06/23 11:11 O2 Flow Rate 4 09/05/23 14:06 FiO2 35 08/19/23 07:58 BMI result Body Mass Index 29.3 Const: Other: General resting comfortably in no acute distress. Neck supple no JVD. CVS regular rate rhythm, Respiratory lungs clear to auscultation, no respiratory distress, no wheeze, no rhonchi. Gastrointestinal abdomen soft, non tender, bowel sounds audible, no guarding , no rigidity. Lower Extremities no edema. Left forearm wound VAC in place with no surrounding redness, sutures intact, decreased sensation and strength left forearm. Left foot no redness, no warmth, able to dorsiflex Psych appropriate affect Objective Data Active Medications Acetaminophen (Acetaminophen 325 Mg Tablet) 650 mg PO Q4H PRN PRN Reason: fever or pain Last Admin: 09/06/23 13:10 Dose: 650 mg Documented By: ROSI Acetaminophen (Acetaminophen Supp 650 Mg Supp.Rect) 650 mg [place] Q4H PRN PRN Reason: Fever Carvedilol (Carvedilol 3.125 Mg Tablet) 3.125 mg PO BID [facility]; Protocol Last Admin: 09/06/23 08:54 Dose: 3.125 mg Documented By: JEAN Diphenhydramine HCl (Diphenhydramine Hcl 25 Mg Capsule) 25 mg PO Q6H PRN PRN Reason: itching Last Admin: 09/06/23 03:33 Dose: 25 mg Documented By: JONNY Docusate Sodium (Docusate Sodium 100 Mg Capsule) 100 mg PO BID [facility] Last Admin: 09/06/23 08:49 Dose: Not Given Documented By: JEAN Non-Admin Reason: Patient Refused Doxycycline Monohydrate (Doxycycline Monohydrate 100 Mg Capsule) 100 mg PO Q12H [facility] Last Admin: 09/06/23 11:22 Dose: 100 mg Documented By: BALDO Gabapentin (Gabapentin 100 Mg Capsule) 200 mg PO BID [facility] Last Admin: 09/06/23 08:54 Dose: 200 mg Documented By: JEAN Hydrocortisone (Hydrocortisone 1 % Cream 28.35 Gm Tube) 1 appl TOPICAL DAILY JEANNIE; Protocol Last Admin: 09/06/23 08:53 Dose: Not Given Documented By: JEAN Non-Admin Reason: Patient Refused Hydromorphone HCl (Hydromorphone Hcl 2 Mg/Ml Vial) 2 mg IVPUSH Q3H PRN; Protocol PRN Reason: severe pain Last Admin: 09/06/23 11:22 Dose: 2 mg Documented By: BALDO Hydromorphone HCl (Hydromorphone Hcl 2 Mg Tablet) 3 mg PO Q3H [facility] Last Admin: 09/06/23 14:20 Dose: 3 mg Documented By: BALDO Lactulose (Lactulose 20 Gm/30 Ml Solution) 20 gm PO TID [facility] Last Admin: 09/01/23 07:45 Dose: Not Given Documented By: YANNI Non-Admin Reason: diarrhea Lorazepam (Lorazepam 0.5 Mg Tablet) 0.5 mg PO Q8H PRN PRN Reason: Anxiety Last Admin: 09/05/23 23:58 Dose: 0.5 mg Documented By: JONNY Morphine Sulfate (Morphine Sulfate Er 15 Mg Tablet.Er) 15 mg PO Q8H [facility] Last Admin: 09/06/23 08:54 Dose: 15 mg Documented By: JEAN Sodium Chloride (0.9 % Sodium Chloride Flush 3 Ml Syringe) 3 ml IVFLUSH QSHIFT [facility] Last Admin: 09/06/23 08:53 Dose: 3 ml Documented By: JEAN Labs 09/06/23 05:44 09/06/23 05:44 Labs: Laboratory Results - last 24 hr 09/05/23 09/06/23 12:58 05:44 Estim Creat Clear Calc 115.8 Estimated GFR > 60 Blood Type B Positive Antibody Screen NEGATIVE Crossmatch See Detail Microbiology Microbiology Results: Microbiology 09/01/23 08:40 Blood Culture - Final Blood - Venous No growth after 5 days. 09/01/23 08:40 Blood Culture - Final Blood - Venous No growth after 5 days. 09/03/23 20:38 Blood Culture - Preliminary Blood - Venous No growth after 48 hours. 09/03/23 20:38 Blood Culture - Preliminary Blood - Venous No growth after 48 hours. Assessment and Plan (1) Fever: Status: Acute (2) Compartment syndrome of forearm: Status: Acute Plan This is a 33 year old lady who presented with AMS from overdose developed left arm Compartment syndrome, rhabdo, aspiration, CMP requiring ICU admission and intubation with 4 surgeries to relieve the compartment, downgraded to the medical floor 08/21 now with persistent fever. Compartment syndrome left forearm s/p fasciotomy, multiple debridements ortho, vascular, wound team following, wound vac in place. wound vac changed 09/02 with no abscess or purulent discharge seen Underwent debridement by Ortho on 09/01 4th tolerated procedure well s/p IV vancomycin, and IV zosyn stopped due to likely cause of drug fever and leukopenia. Placed on IV doxycycline for 10 days however patient complaining of burning with IV therefore will transition to by mouth doxy for total 10 days started on 09/05 Good pain control, weaning narcotics , Benadryl for itching fevers recurrent fevers since 08/29, no high fevers in last 24 hours TLC removed blood cultures negative, UA negative, urine culture 09/01 neg- no respiratory symptoms, CT scan of abdomen/pelvis negative 09/01 LUE US negative for DVT, RLE US negative atelectasis on CT - encourage incentive spirometry Blood cultures 09/03 negative zosyn and vanco stopped for concern of drug fever. Differential diagnosis drug fevers/atelectasis/deep muscle injury Acute Normocytic anemia likely component of blood loss from multiple surgeries and acute illness s/p 1U RBCs 08/31 with improvement of H/H, today hematocrit dropped to 21.5 will transfuse 2 units of packed RBC since requiring surgical debridement with risk for bleeding. 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, recs appreciated outpatient EMG studies continue PT/OT inpatient New onset acute Cardiomyopathy Echo on 08/17 showed 20% repeat Echo per ICU showed improvement echo consistent with takotsubo cardiomyopathy per cardiology cardiology rec starting carvedilol and consider KENNETH-I if able to tolerate, so far bp has been soft rec repeat ECHO 4 weeks from initial echo - due around 09/14 Aspiration pneumonia completed course of IV Vanco and Meropenem Rhabdo toxic and mechanical secondary drug OD and prolonged downtime CPK [id number] on admission, trended down with IVF Elevated LFTs LFTs have normalized Acute hypokalemia resolved with replacement Constipation Laxatives prn; hold for diarrhea Drug abuse Addiction team following New onset seizure Neurology eval one time incident, no need to treat, no recurrent seizures noted DVT PPx- SCDs - due to ongoing interventions for left arm, anemia reason for continued hospitalization: ongoing surgical interventions, fever Time Spent With Patient Time: Total time managing care of this patient today ____ minutes. Quality Stroke Does the patient have a stroke diagnosis?: No VTE Prior VTE?: No VTE Risk Level:: Medical - moderate - high VTE Device Contraindication: N/A - Device Ordered VTE Drug Contraindication: Treatment Not Indicated
[2023-09-06] MEDS: LORazepam 0.5 MG TABLET PO (16:26)
[2023-09-07] VITALS (10 sets, daily range): BP systolic 91–108; BP diastolic 55–65; PULSE 79–107; RESP 16–20; TEMP 36.5–39.6; O2SAT 94–99
[2023-09-07] MEDS: Acetaminophen 325 MG TABLET 650 MG PO ×3 (01:54→20:15)
[2023-09-07] MEDS: HYDROmorphone HCl 2 MG TABLET 3 MG PO ×6 (01:54→21:56)
[2023-09-07] MEDS: Acetaminophen 1,000 MG/100 ML PIGGYBACK 400 MG IV (03:55)
[2023-09-07] MEDS: diphenhydrAMINE HCL 25 MG CAPSULE PO ×2 (05:10→17:51)
--- NOTE | 2023-09-07 09:01 | PM.CNGS ---
History of Present Illness Consult details Consult date: 09/06/23 Reason for consult: other Requesting physician: Devang Long Narrative: This is a 33 year old lady who presented with AMS from overdose developed left arm Compartment syndrome, rhabdo, aspiration, CMP requiring ICU admission and intubation with 4 surgeries to relieve the compartment, downgraded to the medical floor 08/21 now with persistent fever. Compartment syndrome left forearm s/p fasciotomy, multiple debridements ortho, vascular, wound team following, wound vac in place. wound vac changed 09/02 with no abscess or purulent discharge seen Underwent debridement by Ortho on 09/01 4th tolerated procedure well s/p IV vancomycin, and IV zosyn stopped due to likely cause of drug fever and leukopenia. Placed on IV doxycycline for 10 days however patient complaining of burning with IV therefore will transition to by mouth doxy for total 10 days started on 09/05 Review of Systems Review of Systems: Yes Unobtainable due to mental status PMFSH Past Medical History Medical History (Updated 05/10/24 @ 08:41 by Mary Beth Billings PA-C) Substance abuse MDD (major depressive disorder) Opioid use disorder 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 Reactive airway disease History of cocaine use 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 Rash Family History Family History Brother Substance use disorder Paternal Aunt Substance use disorder Maternal Aunt Substance use disorder Family history: reviewed and not pertinent Surgical History Surgical History Status post incision and drainage History of fasciotomy Social History Social History Household Members: Family and Children Household Members Other:: Parents, siblings, son Housing: House Do you presently have visiting nurse or other home services: No Unable to assess alcohol history related to: Unable to respond Alcohol intake: former Patient Tobacco Use Status: Current everyday Tobacco user Tobacco use type: Cigarette Cigarettes Per Day: 4 e-Cigarette/Vaping Use: Never Used Substance Use Type: Heroin service: No Current occupational status: unemployed Cognitive needs: No Hearing needs: No Vision needs: Yes Meds Allergies Allergy/AdvReac Type Severity Reaction Status Date / Time No Known Allergies Allergy Verified 04/15/24 09:47 Active Medications: Current Medications Acetaminophen (Acetaminophen 325 Mg Tablet) 650 mg PO Q4H PRN PRN Reason: fever or pain Last Admin: 09/07/23 01:54 Dose: 650 mg Acetaminophen (Acetaminophen Supp 650 Mg Supp.Rect) 650 mg [place] Q4H PRN PRN Reason: Fever Carvedilol (Carvedilol 3.125 Mg Tablet) 3.125 mg PO BID [facility]; Protocol Last Admin: 09/06/23 21:15 Dose: Not Given Diphenhydramine HCl (Diphenhydramine Hcl 25 Mg Capsule) 25 mg PO Q6H PRN PRN Reason: itching Last Admin: 09/07/23 05:10 Dose: 25 mg Docusate Sodium (Docusate Sodium 100 Mg Capsule) 100 mg PO BID [facility] Last Admin: 09/06/23 20:26 Dose: Not Given Doxycycline Monohydrate (Doxycycline Monohydrate 100 Mg Capsule) 100 mg PO Q12H [facility] Last Admin: 09/06/23 22:56 Dose: 100 mg Gabapentin (Gabapentin 100 Mg Capsule) 200 mg PO BID [facility] Last Admin: 09/06/23 20:24 Dose: 200 mg Hydrocortisone (Hydrocortisone 1 % Cream 28.35 Gm Tube) 1 appl TOPICAL DAILY [facility]; Protocol Last Admin: 09/06/23 08:53 Dose: Not Given Hydromorphone HCl (Hydromorphone Hcl 2 Mg Tablet) 3 mg PO Q3H [facility] Last Admin: 09/07/23 03:53 Dose: 3 mg Hydromorphone HCl (Hydromorphone Hcl 2 Mg/Ml Vial) 2 mg IVPUSH Q4H PRN; Protocol PRN Reason: severe pain Lactulose (Lactulose 20 Gm/30 Ml Solution) 20 gm PO TID [facility] Last Admin: 09/01/23 07:45 Dose: Not Given Lorazepam (Lorazepam 0.5 Mg Tablet) 0.5 mg PO Q8H PRN PRN Reason: Anxiety Last Admin: 09/06/23 16:26 Dose: 0.5 mg Morphine Sulfate (Morphine Sulfate Er 15 Mg Tablet.Er) 15 mg PO Q8H [facility] Last Admin: 09/06/23 22:57 Dose: 15 mg Sodium Chloride (0.9 % Sodium Chloride Flush 3 Ml Syringe) 3 ml IVFLUSH QSHIFT [facility] Last Admin: 09/06/23 20:26 Dose: 3 ml Physical Exam Vital Signs: Vital Signs: Last Vital Signs Temp 97.7 F 09/07/23 08:00 Pulse 84 09/07/23 08:00 Resp 18 09/07/23 08:00 BP 91/65 09/07/23 08:00 Pulse Ox 98 09/07/23 08:00 O2 Del Method Room Air 09/07/23 08:00 O2 Flow Rate 4 09/05/23 14:06 FiO2 35 08/19/23 07:58 BMI result Body Mass Index 29.3 Extrem: Other: Left arm not able to be moved very much not able to lift but can rotate [id number]. Wound VAC in place and the surrounding arm tissue looks good. Pictures reviewed which showed good granulation tissue healthier tissue. Patient has distal radial artery strong and palpable Results Labs 09/14/23 06:24 09/14/23 06:24 Labs: Abnormal lab results 09/05/23 Range/Units 12:58 Crossmatch See Detail Urine 08/16/23 08/17/23 09/01/23 Range/Units 08:25 Unknown 10:27 Urine Color Dark Yellow Yellow Urine Appearance Cloudy Cloudy Urine pH 5.5 8.0 (5.0-9.0) Ur Specific [place] 1.015 1.010 (1.005-1.025) Urine Protein 100 (2+) H Negative (Neg-Trace) mg/dL Urine Glucose (UA) 100 H Negative (Negative) mg/dL Urine Test NEGATIVE (NEGATIVE) All other labs normal. Assessment and Plan (1) Compartment syndrome of forearm: Status: Acute Plan Patient is a 33 IV drug abuse female with left arm infection status post multiple surgeries for release of compartment syndrome and debridement of tissue. Seems to be stable right now and would agree with carrying out wound VAC changes and isolated debridements as deemed necessary. In regards to the hand there is no compromise and generally the hand is well perfused. In regard to the neuropathy some of this may improve but most likely will need extensive PT and further evaluation. Limb salvage has been the priority here and prevention of sepsis. Eventually can be seen in wound care for continued management of the wound. Antibiotics as per ID Time Spent With Patient Time: Total time managing care of this patient today ____ minutes. Procedures Date of Service Date of Service: 06/05/24
--- NOTE | 2023-09-07 09:02 | PM.PNORT ---
Subjective Subjective Date of Service: 09/07/23 Principal diagnosis: left brachial plexus neuropathy and compartment syndrome forearm Interval history: Left forearm pain managed Wound vac in place No overnight events Patient is resting comfortably in bed No additional complaints Physical Exam Vital Signs: Vital Signs: Last Vital Signs Temp 97.7 F 09/07/23 08:00 Pulse 84 09/07/23 08:00 Resp 18 09/07/23 08:00 BP 91/65 09/07/23 08:00 Pulse Ox 98 09/07/23 08:00 O2 Del Method Room Air 09/07/23 08:00 O2 Flow Rate 4 09/05/23 14:06 FiO2 35 08/19/23 07:58 BMI result Body Mass Index 29.3 Extrem: Other: left forearm wound vac holding suction arm and forearm soft Procedures Date of Service Date of Service: 09/07/23 Progress Note: A&P Assessment and plan (1) Brachial plexopathy: Status: Acute (2) Compartment syndrome of forearm: Status: Acute Assessment and Plan: Stable with no motor function sensation improving over dorsum of hand but dense numbness over volar forearm Wound vac in place with appropriate suctioning Pain management Time Spent With Patient Time: Total time managing care of this patient today ____ minutes. Quality Stroke Does the patient have a stroke diagnosis?: No VTE Prior VTE?: No VTE Risk Level:: Medical - moderate - high VTE Device Contraindication: N/A - Device Ordered VTE Drug Contraindication: Treatment Not Indicated
[2023-09-07] MEDS: Morphine Sulfate ER 15 MG TABLET.ER PO ×3 (09:44→22:43)
[2023-09-07] MEDS: Doxycycline Monohydrate 100 MG CAPSULE PO ×2 (09:44→22:43)
[2023-09-07] MEDS: 0.9 % Sodium Chloride Flush 3 ML SYRINGE IVFLUSH ×2 (09:45→17:49)
[2023-09-07] MEDS: Gabapentin 100 MG CAPSULE 200 MG PO ×2 (09:45→20:16)
[2023-09-07] MEDS: Docusate Sodium 100 MG CAPSULE PO ×2 (09:45→20:16)
[2023-09-07] MEDS: Hydrocortisone 1 % Cream 28.35 GM TUBE 1 APPL TOPICAL (10:33)
[2023-09-07] MEDS: carvediloL 3.125 MG TABLET PO ×2 (10:34→20:16)
[2023-09-07 12:08] LABS: MANUAL DIFF FLAG NO
[2023-09-07 12:10] LABS: Basophils Percent Auto 0.4 % (0-2); Eosinophils Absolute Auto 0.3 X10*3/uL (0.0-0.4); Eosinophils Percent Auto 4.3 % (0-4); Hematocrit 29.6 % (37.0-47.0); Hemoglobin 10.1 g/dl (12.0-16.0); Imm Gran Abs Auto 0.03 X10*3/uL (0.00-0.03); Imm Gran Pct Auto 0.4 % (0.0-0.4); Lymphocytes Absolute Auto 1.4 X10*3/uL (1.2-4.9); Lymphocytes Percent Auto 18.4 % (20-40); Mean Corpuscular HGB Conc 34.1 g/dl (31.0-35.0); Mean Corpuscular Volume 90.8 fL (80.0-98.0); Mean Platelet Volume 11.5 fL (9.4-12.3); Monocytes Absolute Auto 0.7 X10*3/uL (0.1-1.2); Monocytes Percent Auto 8.4 % (2-11); Neutrophils Absolute Auto 5.3 x10*3/uL (2.0-8.3); Neutrophils Percent Auto 68.1 % (45-73); Platelet Count 294 X10*3/uL (160-400); Red Blood Count 3.26 X10*6/uL (4.20-5.50); Red Cell Distribution Width 13.8 % (11.0-16.0); White Blood Count 7.7 X10*3/uL (4.8-10.8)
[2023-09-07 12:24] LABS: Anion Gap 14 (12-20); Blood Urea Nitrogen 8 mg/dL (9-16); Calcium 8.7 mg/dL (8.4-10.2); Carbon Dioxide 23 mmol/L (22-29); Chloride 102 mmol/L (96-108); Estimated Glomerular Filt Rate > 60; Glucose Random 114 mg/dL (60-115); Potassium 3.6 mmol/L (3.3-5.1); Sodium 135 mmol/L (135-145)
--- NOTE | 2023-09-07 12:39 | HO.PM.IMPN ---
Subjective Subjective Date of Service: 09/07/23 Interval History: seen and examined this morning follow up for left arm compartment syndrome/infection fever noted 09/06 at 7 pm, overnight 101 and this morning 103 patient denies abdominal pain, nausea, vomiting, diarrhea, urinary symptoms or respiratory symptoms Review of Systems Review of Systems: Yes all other systems are reviewed and are negative Constitutional Constitutional: Denies chills and Reports fever(s) Cardiovascular Cardiovascular: Denies chest pain, Denies palpitations and Denies dyspnea Respiratory Respiratory: Denies cough and Denies dyspnea Gastrointestinal Gastrointestinal: Denies abdominal pain Endocrine Endocrine: Denies palpitations Physical Exam Vital Signs: Vital Signs: Last Vital Signs Temp 100.2 F 09/07/23 11:53 Pulse 106 H 09/07/23 11:11 Resp 16 09/07/23 11:11 BP 108/60 09/07/23 11:11 Pulse Ox 97 09/07/23 11:11 O2 Del Method Room Air 09/07/23 11:11 O2 Flow Rate 4 09/05/23 14:06 FiO2 35 08/19/23 07:58 BMI result Body Mass Index 29.3 Const: General: cooperative, alert and awake Nutritional Appearance: overweight Orientation/consciousness: patient oriented x3 Resp: Effort & Inspection: normal respiratory effort, able to speak in complete sentences, no respiratory distress and no use of accessory muscles Cardio: Rate: regular rate GI: Inspection: No distended Palpation (GI): Soft to palpation and nontender Skin: Other: left forarm wound VAC in place. no surrounding erythema. sutures intact; has ongoing decreased sensation and strength left arm Neuro: General: patient oriented x3 and CN's II-XI intact bilaterally Objective Data Active Medications Acetaminophen (Acetaminophen 325 Mg Tablet) 650 mg PO Q4H PRN PRN Reason: fever or pain Last Admin: 09/07/23 11:23 Dose: 650 mg Documented By: VICTOR M Acetaminophen (Acetaminophen Supp 650 Mg Supp.Rect) 650 mg [place] Q4H PRN PRN Reason: Fever Carvedilol (Carvedilol 3.125 Mg Tablet) 3.125 mg PO BID [facility]; Protocol Last Admin: 09/07/23 10:34 Dose: 3.125 mg Documented By: VICTOR M Diphenhydramine HCl (Diphenhydramine Hcl 25 Mg Capsule) 25 mg PO Q6H PRN PRN Reason: itching Last Admin: 09/07/23 05:10 Dose: 25 mg Documented By: VICTOR M Docusate Sodium (Docusate Sodium 100 Mg Capsule) 100 mg PO BID [facility] Last Admin: 09/07/23 09:45 Dose: 100 mg Documented By: VICTOR M Doxycycline Monohydrate (Doxycycline Monohydrate 100 Mg Capsule) 100 mg PO Q12H [facility] Last Admin: 09/07/23 09:44 Dose: 100 mg Documented By: VICTOR M Gabapentin (Gabapentin 100 Mg Capsule) 200 mg PO BID [facility] Last Admin: 09/07/23 09:45 Dose: 200 mg Documented By: VICTOR M Hydrocortisone (Hydrocortisone 1 % Cream 28.35 Gm Tube) 1 appl TOPICAL DAILY [facility]; Protocol Last Admin: 09/07/23 10:33 Dose: 1 appl Documented By: VICTOR M Hydromorphone HCl (Hydromorphone Hcl 2 Mg Tablet) 3 mg PO Q3H [facility] Last Admin: 09/07/23 10:30 Dose: 3 mg Documented By: VICTOR M Hydromorphone HCl (Hydromorphone Hcl 2 Mg/Ml Vial) 2 mg IVPUSH Q4H PRN; Protocol PRN Reason: severe pain Lactulose (Lactulose 20 Gm/30 Ml Solution) 20 gm PO TID [facility] Last Admin: 09/01/23 07:45 Dose: Not Given Documented By: YANNI Non-Admin Reason: diarrhea Lorazepam (Lorazepam 0.5 Mg Tablet) 0.5 mg PO Q8H PRN PRN Reason: Anxiety Last Admin: 09/06/23 16:26 Dose: 0.5 mg Documented By: BALDO Morphine Sulfate (Morphine Sulfate Er 15 Mg Tablet.Er) 15 mg PO Q8H [facility] Last Admin: 09/07/23 09:44 Dose: 15 mg Documented By: VICTOR M Sodium Chloride (0.9 % Sodium Chloride Flush 3 Ml Syringe) 3 ml IVFLUSH QSHIFT [facility] Last Admin: 09/07/23 09:45 Dose: 3 ml Documented By: VICTOR M Labs 09/07/23 11:49 09/07/23 11:49 Labs: Laboratory Results - last 24 hr 09/07/23 11:49 MCV 90.8 MCH 31.0 MCHC 34.1 RDW 13.8 Plt Count 294 MPV 11.5 Immature Gran % (Auto) 0.4 Neut % (Auto) 68.1 Lymph % (Auto) 18.4 L [place] % (Auto) 8.4 Eos % (Auto) 4.3 H Baso % (Auto) 0.4 Lymph # (Auto) 1.4 [place] # (Auto) 0.7 Eos # (Auto) 0.3 Baso # (Auto) 0.0 Abs Immat Gran (auto) 0.03 Absolute Neuts (auto) 5.3 Absolute Nucleated RBC 0.000 Nucleated RBC % (auto) 0.0 Anion Gap 14 Estim Creat Clear Calc 119.0 Estimated GFR > 60 Random Glucose 114 Calcium 8.7 Microbiology Microbiology Results: Microbiology 09/01/23 08:40 Blood Culture - Final Blood - Venous No growth after 5 days. 09/01/23 08:40 Blood Culture - Final Blood - Venous No growth after 5 days. Assessment and Plan (1) Brachial plexopathy: Status: Acute (2) Compartment syndrome of forearm: Status: Acute Plan This is a 33 year old lady who presented with AMS from overdose developed left arm Compartment syndrome, rhabdo, aspiration, CMP requiring ICU admission and intubation with 4 surgeries to relieve the compartment, downgraded to the medical floor 08/21 now with persistent fever. Compartment syndrome left forearm s/p fasciotomy, multiple debridements ortho, vascular, wound team following, wound vac in place. wound vac changed 09/02 with no abscess or purulent discharge seen Underwent debridement by Ortho on 09/01 4th tolerated procedure well s/p IV vancomycin, and IV zosyn stopped due to likely cause of drug fever and leukopenia. Placed on IV doxycycline for 10 days however patient complaining of burning with IV therefore will transition to by mouth doxy for total 10 days started on 09/05 Good pain control, weaning narcotics , Benadryl for itching fevers has had intermittent fevers throughout hospitalization TLC removed blood cultures negative, UA negative, urine culture 09/01 neg. repeat blood cultures ordered no respiratory symptoms, CT scan of abdomen/pelvis negative 09/01 LUE US, RLE negative for DVT zosyn and vanco stopped for concern of drug fever atelectasis on CT - encourage incentive spirometry discussed with ortho ? caused from increase buildup of nectrotic tissue in between debridements repeat labs without leukocytosis will discuss with with ID Acute Normocytic anemia likely component of blood loss from multiple surgeries and acute illness s/p 1U RBCs 08/31 with improvement of H/H, today hematocrit dropped to 21.5 will transfuse 2 units of packed RBC since requiring surgical debridement with risk for bleeding. 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 - likely secondary to prolonged compression Persistent left foot pain due to neuropathy, continue Neurontin neurology evaluation appreciated, snf follow up seen by process operator, recs appreciated outpatient EMG studies continue PT/OT inpatient New onset acute Cardiomyopathy Echo on 08/17 showed 20% repeat Echo per ICU showed improvement echo consistent with takotsubo cardiomyopathy per cardiology cardiology rec starting carvedilol and consider KENNETH-I if able to tolerate, so far bp has been soft rec repeat ECHO 4 weeks from initial echo - due around 09/14 Aspiration pneumonia completed course of IV Vanco and Meropenem Rhabdo toxic and mechanical secondary drug OD and prolonged downtime CPK [id number] on admission, trended down with IVF Elevated LFTs LFTs have normalized Acute hypokalemia resolved with replacement Constipation Laxatives prn; hold for diarrhea Drug abuse Addiction team following New onset seizure Neurology eval one time incident, no need to treat, no recurrent seizures noted DVT PPx- SCDs - due to ongoing interventions for left arm attending - dr. aguillon reason for continued hospitalization: ongoing surgical interventions, fever Time Spent With Patient Time: Total time managing care of this patient today ____ minutes. Quality Stroke Does the patient have a stroke diagnosis?: No VTE Prior VTE?: No VTE Risk Level:: Medical - moderate - high VTE Device Contraindication: N/A - Device Ordered VTE Drug Contraindication: Treatment Not Indicated
[2023-09-07] MEDS: LORazepam 0.5 MG TABLET PO (20:16)
[2023-09-08] VITALS (15 sets, daily range): BP systolic 91–144; BP diastolic 52–75; PULSE 69–109; RESP 16–20; TEMP 36.1–38.4; O2SAT 95–99
[2023-09-08] MEDS: HYDROmorphone HCl 2 MG TABLET 3 MG PO ×4 (00:36→21:00)
[2023-09-08] MEDS: Morphine Sulfate ER 15 MG TABLET.ER PO ×2 (04:59→21:01)
[2023-09-08] MEDS: Acetaminophen 325 MG TABLET 650 MG PO (04:59)
[2023-09-08] MEDS: diphenhydrAMINE HCL 25 MG CAPSULE PO (05:42)
[2023-09-08] MEDS: 0.9 % Sodium Chloride Flush 3 ML SYRINGE IVFLUSH ×3 (09:55→21:06)
[2023-09-08] MEDS: Docusate Sodium 100 MG CAPSULE PO ×2 (09:56→21:01)
[2023-09-08] MEDS: Gabapentin 100 MG CAPSULE 200 MG PO ×2 (09:56→21:01)
[2023-09-08] MEDS: carvediloL 3.125 MG TABLET PO ×2 (09:56→21:01)
[2023-09-08] MEDS: Doxycycline Monohydrate 100 MG CAPSULE PO (09:56)
--- NOTE | 2023-09-08 12:45 | P.PNIM_ITS ---
Subjective Subjective Date of Service: 09/08/23 Interval History: seen and examined this morning follow up for left arm compartment syndrome/infection still with fever overnight, afebrile this morning plan for tagged wbc scan today and to OR for debridement this afternoon Review of Systems Review of Systems: Yes all other systems are reviewed and are negative Constitutional Constitutional: Denies chills and Reports fever(s) Cardiovascular Cardiovascular: Denies chest pain, Denies palpitations and Denies dyspnea Respiratory Respiratory: Denies cough and Denies dyspnea Gastrointestinal Gastrointestinal: Denies abdominal pain, Denies nausea and Denies vomiting Genitourinary Genitourinary: Denies dysuria, Denies urinary incontinence and Denies urinary urgency Endocrine Endocrine: Denies palpitations Physical Exam 2 Vital Signs: Vital Signs: Last Vital Signs Temp 97.9 F 09/08/23 11:17 Pulse 69 09/08/23 11:17 Resp 20 09/08/23 11:17 BP 97/54 L 09/08/23 11:17 Pulse Ox 95 09/08/23 11:17 O2 Del Method Room Air 09/08/23 11:17 O2 Flow Rate 4 09/05/23 14:06 FiO2 35 08/19/23 07:58 BMI result Body Mass Index 29.3 Const: General: cooperative, comfortable, no acute distress, alert and awake Nutritional Appearance: overweight Orientation/consciousness: patient oriented x3 Resp: Effort & Inspection: normal respiratory effort, able to speak in complete sentences, no respiratory distress and no use of accessory muscles A uscultation: clear to auscultation bilaterally Cardio: Rate: regular rate GI: Other: +BS Inspection: No distended Palpation (GI): Soft to palpation and nontender Skin: Other: warm, dry; left forearm sutures intact, wound vac in place with good suction; right arm pruritic rash extending to shoulder Neuro: General: patient oriented x3 Extrem: Other: strength improving in left leg; minimal movement left arm, sensation improved slightly General: Yes no pedal edema Objective Data Active Medications Acetaminophen (Acetaminophen 325 Mg Tablet) 650 mg PO Q4H PRN PRN Reason: fever or pain Last Admin: 09/08/23 04:59 Dose: 650 mg Documented By: JUSTIN Acetaminophen (Acetaminophen Supp 650 Mg Supp.Rect) 650 mg [place] Q4H PRN PRN Reason: Fever Carvedilol (Carvedilol 3.125 Mg Tablet) 3.125 mg PO BID [facility]; Protocol Last Admin: 09/08/23 09:56 Dose: 3.125 mg Documented By: VICTOR M Diphenhydramine HCl (Diphenhydramine Hcl 25 Mg Capsule) 25 mg PO Q6H PRN PRN Reason: itching Last Admin: 09/08/23 05:42 Dose: 25 mg Documented By: JUSTIN Docusate Sodium (Docusate Sodium 100 Mg Capsule) 100 mg PO BID [facility] Last Admin: 09/08/23 09:56 Dose: 100 mg Documented By: VICTOR M Doxycycline Monohydrate (Doxycycline Monohydrate 100 Mg Capsule) 100 mg PO Q12H [facility] Last Admin: 09/08/23 09:56 Dose: 100 mg Documented By: VICTOR M Gabapentin (Gabapentin 100 Mg Capsule) 200 mg PO BID [facility] Last Admin: 09/08/23 09:56 Dose: 200 mg Documented By: VICTOR M Hydrocortisone (Hydrocortisone 1 % Cream 28.35 Gm Tube) 1 appl TOPICAL DAILY [facility]; Protocol Last Admin: 09/07/23 10:33 Dose: 1 appl Documented By: VICTOR M Hydromorphone HCl (Hydromorphone Hcl 2 Mg Tablet) 3 mg PO Q3H [facility] Last Admin: 09/08/23 09:54 Dose: 3 mg Documented By: VICTOR M Hydromorphone HCl (Hydromorphone Hcl 2 Mg/Ml Vial) 2 mg IVPUSH Q4H PRN; Protocol PRN Reason: severe pain Lactulose (Lactulose 20 Gm/30 Ml Solution) 20 gm PO TID [facility] Last Admin: 09/01/23 07:45 Dose: Not Given Documented By: YANNI Non-Admin Reason: diarrhea Lorazepam (Lorazepam 0.5 Mg Tablet) 0.5 mg PO Q8H PRN PRN Reason: Anxiety Last Admin: 09/07/23 20:16 Dose: 0.5 mg Documented By: LEANA Morphine Sulfate (Morphine Sulfate Er 15 Mg Tablet.Er) 15 mg PO Q8H [facility] Last Admin: 09/08/23 04:59 Dose: 15 mg Documented By: JUSTIN Sodium Chloride (0.9 % Sodium Chloride Flush 3 Ml Syringe) 3 ml IVFLUSH QSHIFT [facility] Last Admin: 09/08/23 09:55 Dose: 3 ml Documented By: VICTOR M Labs 09/07/23 11:49 09/07/23 11:49 Assessment and Plan (1) Peroneal neuropathy at knee: Status: Acute (2) Compartment syndrome of forearm: Status: Acute (3) Traumatic brachial plexopathy: Status: Acute Plan This is a 33 year old lady who presented with AMS from overdose developed left arm Compartment syndrome, rhabdo, aspiration, CMP requiring ICU admission and intubation with multiple surgeries to relieve the compartment, downgraded to the medical floor 08/21 now with ongoing intermittent fever. Compartment syndrome of left forearm s/p fasciotomy, multiple debridements ortho, vascular, wound team following, wound vac in place plan for further debridement 09/08 s/p IV vancomycin, and zosyn stopped due to likely cause of drug fever and leukopenia weaning narcotics, Benadryl for itching fevers has had intermittent fevers throughout hospitalization TLC removed blood cultures negative, UA negative, urine culture 09/01 neg no respiratory symptoms, CT scan of abdomen/pelvis negative 09/01 LUE US, RLE negative for DVT zosyn and vanco stopped for concern of drug fever atelectasis on CT - encourage incentive spirometry discussed with ortho ? 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 - likely secondary to prolonged compression Persistent left foot pain due to neuropathy, continue Neurontin neurology evaluation appreciated, will need senior living follow up seen by drive man, recs appreciated outpatient EMG studies continue PT/OT inpatient New onset acute Cardiomyopathy Echo on 08/17 showed 20% repeat Echo per ICU showed improvement echo consistent with takotsubo cardiomyopathy per cardiology cardiology rec starting carvedilol and consider KENNETH-I if able to tolerate, so far bp has been soft rec repeat ECHO 4 weeks from initial echo - due around 09/14 Aspiration pneumonia completed course of IV Vanco and Meropenem Rhabdo toxic and mechanical secondary drug OD and prolonged downtime CPK [id number],763 on admission, trended down with IVF Elevated LFTs LFTs have normalized Acute hypokalemia resolved with replacement Constipation Laxatives prn; hold for diarrhea Drug abuse Addiction team following New onset seizure Neurology eval one time incident, no need to treat, no recurrent seizures noted DVT PPx- SCDs - due to ongoing interventions for left arm. has been up to chair daily attending - dr. aguillon reason for continued hospitalization: ongoing surgical interventions, fever Time Spent With Patient Time: Total time managing care of this patient today ____ minutes. Quality Stroke Does the patient have a stroke diagnosis?: No VTE Prior VTE?: No VTE Risk Level:: Medical - moderate - high VTE Device Contraindication: N/A - Device Ordered VTE Drug Contraindication: Treatment Not Indicated
--- NOTE | 2023-09-08 14:14 | P.CONAN_ITS ---
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 (Acute) Pneumonia involving left lung (Acute) Rhabdomyolysis (Acute) Troponin I above reference range (Acute) Acidosis, lactic (Acute) Acute renal failure (Acute) Fever (Acute) Altered mental status (Acute) Substance abuse (Acute) Upper respiratory tract infection (Acute) Flank pain (Acute) Dysuria (Acute) Wheezing (Acute) Respiratory infection (Acute) Cough (Acute) Past Medical History Medical History Substance abuse Family History Family history of problems with anesthesia: No Surgical History History of Problems with Anesthesia: No Social History Social History Household Members: Family and Children Household Members Other:: Parents, siblings, son Housing: House Do you presently have visiting nurse or other home services: No Unable to assess alcohol history related to: Unable to respond Alcohol intake: current Alcohol intake frequency: 0-2 drinks per day Patient Tobacco Use Status: Current everyday Tobacco user Tobacco use type: Cigarette Use of substances other than those prescribed or required for medical reasons: Yes Substance Use Type: Heroin Substance Use Frequency: Occasionally Last Used Substance: Weeks (ago) Currently Displaying Signs/Symptoms of Drug Intoxication Withdrawal: No Have you been hit, kicked, punched, or otherwise hurt by someone within the past year? If so, by whom?: No Do you feel safe in your current relationship?: No Current Relationship Is there a partner from a previous relationship who is making you feel unsafe now?: No Are you made to feel afraid or neglected: No Are you DNR?: No Advance Directives: No Advance Directives Information Provided: No Advance Directives on File: No Do you have thoughts of harming others: None Do you have a plan to hurt others: No Plan Recently lost weight without trying: No How much weight loss: Not applicable Eating poorly because of decreased appetite: No Nutrition screen score: 0 Nutrition Risks: No Nutritional Risk Patient : No : No Poor oral hygiene: No Meds Allergies Allergy/AdvReac Type Severity Reaction Status Date / Time No Known Allergies Allergy Verified 04/24/23 13:48 Active Medications: Current Medications Acetaminophen (Acetaminophen 325 Mg Tablet) 650 mg PO Q4H PRN PRN Reason: fever or pain Last Admin: 09/08/23 04:59 Dose: 650 mg Acetaminophen (Acetaminophen Supp 650 Mg Supp.Rect) 650 mg MO Q4H PRN PRN Reason: Fever Carvedilol (Carvedilol 3.125 Mg Tablet) 3.125 mg PO BID [facility]; Protocol Last Admin: 09/08/23 09:56 Dose: 3.125 mg Diphenhydramine HCl (Diphenhydramine Hcl 25 Mg Capsule) 25 mg PO Q6H PRN PRN Reason: itching Last Admin: 09/08/23 05:42 Dose: 25 mg Docusate Sodium (Docusate Sodium 100 Mg Capsule) 100 mg PO BID [facility] Last Admin: 09/08/23 09:56 Dose: 100 mg Gabapentin (Gabapentin 100 Mg Capsule) 200 mg PO BID [facility] Last Admin: 09/08/23 09:56 Dose: 200 mg Hydrocortisone (Hydrocortisone 1 % Cream 28.35 Gm Tube) 1 appl TOPICAL DAILY [facility]; Protocol Last Admin: 09/07/23 10:33 Dose: 1 appl Hydromorphone HCl (Hydromorphone Hcl 2 Mg/Ml Vial) 2 mg IVPUSH Q4H PRN; Protocol PRN Reason: severe pain Hydromorphone HCl (Hydromorphone Hcl 2 Mg Tablet) 3 mg PO Q4H JEANINE Lactulose (Lactulose 20 Gm/30 Ml Solution) 20 gm PO TID [facility] Last Admin: 09/01/23 07:45 Dose: Not Given Lorazepam (Lorazepam 0.5 Mg Tablet) 0.5 mg PO Q8H PRN PRN Reason: Anxiety Last Admin: 09/07/23 20:16 Dose: 0.5 mg Morphine Sulfate (Morphine Sulfate Er 15 Mg Tablet.Er) 15 mg PO Q8H JEANINE Last Admin: 09/08/23 04:59 Dose: 15 mg Sodium Chloride (0.9 % Sodium Chloride Flush 3 Ml Syringe) 3 ml IVFLUSH QSHIFT [facility] Last Admin: 09/08/23 09:55 Dose: 3 ml Home Medications Medication Instructions Recorded Confirmed Last Taken Type No Known Home Meds 08/16/23 08/16/23 Unknown History Exam Exam Date and Time: September 08, 2023 1414 Height,Weight and Vital Signs: Height 5 ft 6 in Weight 82.3 kg Last Vital Signs Temp 97.9 F 09/08/23 11:17 Pulse 69 09/08/23 11:17 Resp 20 09/08/23 11:17 BP 97/54 L 09/08/23 11:17 Pulse Ox 95 09/08/23 11:17 O2 Del Method Room Air 09/08/23 11:17 O2 Flow Rate 4 09/05/23 14:06 FiO2 35 08/19/23 07:58 Pertinent Lab Results Pertinent Lab Results: Laboratory Tests 08/16/23 08/16/23 08/16/23 07:04 07:11 08:22 WBC 13.7 H RBC 5.02 D Hgb 16.0 D Hct 48.3 H D MCV 96.2 MCH 31.9 MCHC 33.1 RDW 13.0 Plt Count 373 D MPV 10.7 Immature Gran % (Auto) 1.4 H Neut % (Auto) 76.3 H Lymph % (Auto) 15.0 L [place] % (Auto) 7.1 Eos % (Auto) 0.0 Baso % (Auto) 0.2 Lymph # (Auto) 2.1 [place] # (Auto) 1.0 Eos # (Auto) 0.0 Baso # (Auto) 0.0 Abs Immat Gran (auto) 0.19 H Absolute Neuts (auto) 10.5 H Absolute Nucleated RBC 0.020 H Nucleated RBC % (auto) 0.1 Smear Tech's Comments Hold Purple Top SEE NOTE PT INR APTT Hold Blue Top SEE NOTE O2 Saturation 99.0 ABG pH at Pt Temp 7.37 ABG pCO2 at Pt Temp 23 L ABG pO2 at Pt Temp 199 H ABG HCO3 14 L ABG Base Excess (Actual) -9.1 VBG pH VBG pCO2 VBG pO2 VBG HCO3 VBG O2 Saturation VBG Base Excess Sodium 139 Potassium 5.7 H D Chloride 106 Carbon Dioxide 18 L Anion Gap 21 H BUN 30 H Creatinine 2.13 H Estim Creat Clear Calc 40.0 Estimated GFR 27 POC Glucose 123 H Random Glucose 119 H Fasting Glucose Lactic Acid 4.3 H* Lactic Acid F/U @ 2Hr Lactic Acid F/U @ 4Hr Calcium 9.6 Phosphorus Magnesium Total Bilirubin 0.4 Direct Bilirubin 0.2 AST 344 H ALT 114 H Alkaline Phosphatase 75 Total Creatine Kinase 85728 H Troponin I High Sens 346.8 H* Total Protein 8.2 H Albumin 4.8 Lipase 24 TSH Free T4 Hold Red Top Urine Color Urine Appearance Urine pH Ur Specific [place] Urine Protein Urine Glucose (UA) Urine Ketones Urine Blood Urine Nitrite Ur Leukocyte Esterase Urine RBC Urine WBC Ur Squamous Epith Cells Urine Bacteria Hyaline Casts Urine Test CSF Tube Number CSF Volume CSF Appearance CSF Color CSF WBC CSF RBC CSF Lymphocytes CSF Monocytes % CSF Appearance (b) CSF Glucose CSF Total Protein Vancomycin Trough Random Vancomycin Urine Opiates Screen Urine Fentanyl Screen Ur Barbiturates Screen Ur Phencyclidine Scrn Ur Amphetamines Screen U Benzodiazepines Scrn Urine Cocaine Screen U Marijuana (THC) Screen Ethyl Alcohol < 10 Thyroglobulin Antibody Thyroid Peroxidase Ab Respiratory Panel [place] Adenovirus (Rapid PCR) B.pert (TEM-PCR) B.parapertussis DNA PCR C. pneumoniae DNA (PCR) Coronavirus OC43 (PCR) Coronavirus HKU1 (PCR) Coronavirus 229E (PCR) Coronavirus NL63 (PCR) Hepatitis C Ab (EIA) HIV 1&2 Ab/P24 Ag 4thGn Human Metapneumovir PCR Influenza A (RT-PCR) Influenza Type A (PCR) Influenza B (RT-PCR) Influenza Type B (PCR) M. pneumoniae (PCR) Parainfluenza 1 (PCR) Parainfluenza 2 (PCR) Parainfluenza 3 (PCR) Parainfluenza 4 (PCR) RSV (PCR) RSV RNA Qual (PCR) Entero/Rhino (PCR) SARS-CoV-2 RNA (RT-PCR) Blood Type Antibody Screen Crossmatch 08/16/23 08/16/23 08/16/23 08:25 08:25 08:25 WBC RBC Hgb Hct MCV MCH MCHC RDW Plt Count MPV Immature Gran % (Auto) Neut % (Auto) Lymph % (Auto) [place] % (Auto) Eos % (Auto) Baso % (Auto) Lymph # (Auto) [place] # (Auto) Eos # (Auto) Baso # (Auto) Abs Immat Gran (auto) Absolute Neuts (auto) Absolute Nucleated RBC Nucleated RBC % (auto) Smear Tech's Comments Hold Purple Top PT INR APTT Hold Blue Top O2 Saturation ABG pH at Pt Temp ABG pCO2 at Pt Temp ABG pO2 at Pt Temp ABG HCO3 ABG Base Excess (Actual) VBG pH VBG pCO2 VBG pO2 VBG HCO3 VBG O2 Saturation VBG Base Excess Sodium Potassium Chloride Carbon Dioxide Anion Gap BUN Creatinine Estim Creat Clear Calc Estimated GFR POC Glucose Random Glucose Fasting Glucose Lactic Acid Lactic Acid F/U @ 2Hr Lactic Acid F/U @ 4Hr Calcium Phosphorus Magnesium Total Bilirubin Direct Bilirubin AST ALT Alkaline Phosphatase Total Creatine Kinase Troponin I High Sens Total Protein Albumin Lipase TSH Free T4 Hold Red Top Urine Color Dark Yellow Urine Appearance Cloudy Urine pH 5.5 Ur Specific [place] 1.015 Urine Protein 100 (2+) H Urine Glucose (UA) 100 H Urine Ketones Trace Urine Blood Large (3+) H Urine Nitrite Negative Ur Leukocyte Esterase Trace H Urine RBC >20 H Urine WBC 0-5 Ur Squamous Epith Cells 0-2 Urine Bacteria None Seen Hyaline Casts 0-2 Urine Test CSF Tube Number Cancelled 1 4 CSF Volume CSF Appearance CSF Color CSF WBC CSF RBC CSF Lymphocytes CSF Monocytes % CSF Appearance (b) CSF Glucose CSF Total Protein Vancomycin Trough Random Vancomycin Urine Opiates Screen Urine Fentanyl Screen Ur Barbiturates Screen Ur Phencyclidine Scrn Ur Amphetamines Screen U Benzodiazepines Scrn Urine Cocaine Screen U Marijuana (THC) Screen Ethyl Alcohol Thyroglobulin Antibody Thyroid Peroxidase Ab Respiratory Panel [place] Adenovirus (Rapid PCR) B.pert (TEM-PCR) B.parapertussis DNA PCR C. pneumoniae DNA (PCR) Coronavirus OC43 (PCR) Coronavirus HKU1 (PCR) Coronavirus 229E (PCR) Coronavirus NL63 (PCR) Hepatitis C Ab (EIA) HIV 1&2 Ab/P24 Ag 4thGn Human Metapneumovir PCR Influenza A (RT-PCR) Influenza Type A (PCR) Influenza B (RT-PCR) Influenza Type B (PCR) M. pneumoniae (PCR) Parainfluenza 1 (PCR) Parainfluenza 2 (PCR) Parainfluenza 3 (PCR) Parainfluenza 4 (PCR) RSV (PCR) RSV RNA Qual (PCR) Entero/Rhino (PCR) SARS-CoV-2 RNA (RT-PCR) Blood Type Antibody Screen Crossmatch 08/16/23 08/16/23 08/16/23 08:25 08:25 08:25 WBC RBC Hgb Hct MCV MCH MCHC RDW Plt Count MPV Immature Gran % (Auto) Neut % (Auto) Lymph % (Auto) [place] % (Auto) Eos % (Auto) Baso % (Auto) Lymph # (Auto) [place] # (Auto) Eos # (Auto) Baso # (Auto) Abs Immat Gran (auto) Absolute Neuts (auto) Absolute Nucleated RBC Nucleated RBC % (auto) Smear Tech's Comments Hold Purple Top PT INR APTT Hold Blue Top O2 Saturation ABG pH at Pt Temp ABG pCO2 at Pt Temp ABG pO2 at Pt Temp ABG HCO3 ABG Base Excess (Actual) VBG pH VBG pCO2 VBG pO2 VBG HCO3 VBG O2 Saturation VBG Base Excess Sodium Potassium Chloride Carbon Dioxide Anion Gap BUN Creatinine Estim Creat Clear Calc Estimated GFR POC Glucose Random Glucose Fasting Glucose Lactic Acid Lactic Acid F/U @ 2Hr Lactic Acid F/U @ 4Hr Calcium Phosphorus Magnesium Total Bilirubin Direct Bilirubin AST ALT Alkaline Phosphatase Total Creatine Kinase Troponin I High Sens Total Protein Albumin Lipase TSH Free T4 Hold Red Top Urine Color Urine Appearance Urine pH Ur Specific [place] Urine Protein Urine Glucose (UA) Urine Ketones Urine Blood Urine Nitrite Ur Leukocyte Esterase Urine RBC Urine WBC Ur Squamous Epith Cells Urine Bacteria Hyaline Casts Urine Test CSF Tube Number 2 CSF Volume 1.0 1.0 CSF Appearance CLEAR CLEAR CSF Color COLORLESS CSF WBC CSF RBC CSF Lymphocytes CSF Monocytes % CSF Appearance (b) CSF Glucose CSF Total Protein Vancomycin Trough Random Vancomycin Urine Opiates Screen Urine Fentanyl Screen Ur Barbiturates Screen Ur Phencyclidine Scrn Ur Amphetamines Screen U Benzodiazepines Scrn Urine Cocaine Screen U Marijuana (THC) Screen Ethyl Alcohol Thyroglobulin Antibody Thyroid Peroxidase Ab Respiratory Panel [place] Adenovirus (Rapid PCR) B.pert (TEM-PCR) B.parapertussis DNA PCR C. pneumoniae DNA (PCR) Coronavirus OC43 (PCR) Coronavirus HKU1 (PCR) Coronavirus 229E (PCR) Coronavirus NL63 (PCR) Hepatitis C Ab (EIA) HIV 1&2 Ab/P24 Ag 4thGn Human Metapneumovir PCR Influenza A (RT-PCR) Influenza Type A (PCR) Influenza B (RT-PCR) Influenza Type B (PCR) M. pneumoniae (PCR) Parainfluenza 1 (PCR) Parainfluenza 2 (PCR) Parainfluenza 3 (PCR) Parainfluenza 4 (PCR) RSV (PCR) RSV RNA Qual (PCR) Entero/Rhino (PCR) SARS-CoV-2 RNA (RT-PCR) Blood Type Antibody Screen Crossmatch 08/16/23 08/16/23 08/16/23 08:25 08:25 08:25 WBC RBC Hgb Hct MCV MCH MCHC RDW Plt Count MPV Immature Gran % (Auto) Neut % (Auto) Lymph % (Auto) [place] % (Auto) Eos % (Auto) Baso % (Auto) Lymph # (Auto) [place] # (Auto) Eos # (Auto) Baso # (Auto) Abs Immat Gran (auto) Absolute Neuts (auto) Absolute Nucleated RBC Nucleated RBC % (auto) Smear Tech's Comments Hold Purple Top PT INR APTT Hold Blue Top O2 Saturation ABG pH at Pt Temp ABG pCO2 at Pt Temp ABG pO2 at Pt Temp ABG HCO3 ABG Base Excess (Actual) VBG pH VBG pCO2 VBG pO2 VBG HCO3 VBG O2 Saturation VBG Base Excess Sodium Potassium Chloride Carbon Dioxide Anion Gap BUN Creatinine Estim Creat Clear Calc Estimated GFR POC Glucose Random Glucose Fasting Glucose Lactic Acid Lactic Acid F/U @ 2Hr Lactic Acid F/U @ 4Hr Calcium Phosphorus Magnesium Total Bilirubin Direct Bilirubin AST ALT Alkaline Phosphatase Total Creatine Kinase Troponin I High Sens Total Protein Albumin Lipase TSH Free T4 Hold Red Top Urine Color Urine Appearance Urine pH Ur Specific [place] Urine Protein Urine Glucose (UA) Urine Ketones Urine Blood Urine Nitrite Ur Leukocyte Esterase Urine RBC Urine WBC Ur Squamous Epith Cells Urine Bacteria Hyaline Casts Urine Test CSF Tube Number CSF Volume CSF Appearance CSF Color COLORLESS CSF WBC 2 3 CSF RBC 22 14 CSF Lymphocytes 100 CSF Monocytes % CSF Appearance (b) CSF Glucose CSF Total Protein Vancomycin Trough Random Vancomycin Urine Opiates Screen Urine Fentanyl Screen Ur Barbiturates Screen Ur Phencyclidine Scrn Ur Amphetamines Screen U Benzodiazepines Scrn Urine Cocaine Screen U Marijuana (THC) Screen Ethyl Alcohol Thyroglobulin Antibody Thyroid Peroxidase Ab Respiratory Panel [place] Adenovirus (Rapid PCR) B.pert (TEM-PCR) B.parapertussis DNA PCR C. pneumoniae DNA (PCR) Coronavirus OC43 (PCR) Coronavirus HKU1 (PCR) Coronavirus 229E (PCR) Coronavirus NL63 (PCR) Hepatitis C Ab (EIA) HIV 1&2 Ab/P24 Ag 4thGn Human Metapneumovir PCR Influenza A (RT-PCR) Influenza Type A (PCR) Influenza B (RT-PCR) Influenza Type B (PCR) M. pneumoniae (PCR) Parainfluenza 1 (PCR) Parainfluenza 2 (PCR) Parainfluenza 3 (PCR) Parainfluenza 4 (PCR) RSV (PCR) RSV RNA Qual (PCR) Entero/Rhino (PCR) SARS-CoV-2 RNA (RT-PCR) Blood Type Antibody Screen Crossmatch 08/16/23 08/16/23 08/16/23 08:25 08:25 08:25 WBC RBC Hgb Hct MCV MCH MCHC RDW Plt Count MPV Immature Gran % (Auto) Neut % (Auto) Lymph % (Auto) [place] % (Auto) Eos % (Auto) Baso % (Auto) Lymph # (Auto) [place] # (Auto) Eos # (Auto) Baso # (Auto) Abs Immat Gran (auto) Absolute Neuts (auto) Absolute Nucleated RBC Nucleated RBC % (auto) Smear Tech's Comments Hold Purple Top PT INR APTT Hold Blue Top O2 Saturation ABG pH at Pt Temp ABG pCO2 at Pt Temp ABG pO2 at Pt Temp ABG HCO3 ABG Base Excess (Actual) VBG pH VBG pCO2 VBG pO2 VBG HCO3 VBG O2 Saturation VBG Base Excess Sodium Potassium Chloride Carbon Dioxide Anion Gap BUN Creatinine Estim Creat Clear Calc Estimated GFR POC Glucose Random Glucose Fasting Glucose Lactic Acid Lactic Acid F/U @ 2Hr Lactic Acid F/U @ 4Hr Calcium Phosphorus Magnesium Total Bilirubin Direct Bilirubin AST ALT Alkaline Phosphatase Total Creatine Kinase Troponin I High Sens Total Protein Albumin Lipase TSH Free T4 Hold Red Top Urine Color Urine Appearance Urine pH Ur Specific [place] Urine Protein Urine Glucose (UA) Urine Ketones Urine Blood Urine Nitrite Ur Leukocyte Esterase Urine RBC Urine WBC Ur Squamous Epith Cells Urine Bacteria Hyaline Casts Urine Test CSF Tube Number CSF Volume CSF Appearance CSF Color CSF WBC CSF RBC CSF Lymphocytes 83 CSF Monocytes % 17 CSF Appearance (b) Cancelled Clear, Colorless CSF Glucose Cancelled 96 CSF Total Protein 28.6 Vancomycin Trough Random Vancomycin Urine Opiates Screen POSITIVE H Urine Fentanyl Screen POSITIVE H Ur Barbiturates Screen Not Detected Ur Phencyclidine Scrn Not Detected Ur Amphetamines Screen Not Detected U Benzodiazepines Scrn POSITIVE H Urine Cocaine Screen POSITIVE H U Marijuana (THC) Screen POSITIVE H Ethyl Alcohol Thyroglobulin Antibody Thyroid Peroxidase Ab Respiratory Panel [place] Adenovirus (Rapid PCR) B.pert (TEM-PCR) B.parapertussis DNA PCR C. pneumoniae DNA (PCR) Coronavirus OC43 (PCR) Coronavirus HKU1 (PCR) Coronavirus 229E (PCR) Coronavirus NL63 (PCR) Hepatitis C Ab (EIA) HIV 1&2 Ab/P24 Ag 4thGn Human Metapneumovir PCR Influenza A (RT-PCR) Influenza Type A (PCR) Influenza B (RT-PCR) Influenza Type B (PCR) M. pneumoniae (PCR) Parainfluenza 1 (PCR) Parainfluenza 2 (PCR) Parainfluenza 3 (PCR) Parainfluenza 4 (PCR) RSV (PCR) RSV RNA Qual (PCR) Entero/Rhino (PCR) SARS-CoV-2 RNA (RT-PCR) Blood Type Antibody Screen Crossmatch 08/16/23 08/16/23 08/16/23 09:45 09:46 09:50 WBC RBC Hgb Hct MCV MCH MCHC RDW Plt Count MPV Immature Gran % (Auto) Neut % (Auto) Lymph % (Auto) [place] % (Auto) Eos % (Auto) Baso % (Auto) Lymph # (Auto) [place] # (Auto) Eos # (Auto) Baso # (Auto) Abs Immat Gran (auto) Absolute Neuts (auto) Absolute Nucleated RBC Nucleated RBC % (auto) Smear Tech's Comments Hold Purple Top PT INR APTT Hold Blue Top O2 Saturation ABG pH at Pt Temp ABG pCO2 at Pt Temp ABG pO2 at Pt Temp ABG HCO3 ABG Base Excess (Actual) VBG pH VBG pCO2 VBG pO2 VBG HCO3 VBG O2 Saturation VBG Base Excess Sodium Potassium Chloride Carbon Dioxide Anion Gap BUN Creatinine Estim Creat Clear Calc Estimated GFR POC Glucose Random Glucose Fasting Glucose Lactic Acid Lactic Acid F/U @ 2Hr 2.3 H* Lactic Acid F/U @ 4Hr Calcium Phosphorus Magnesium Total Bilirubin Direct Bilirubin AST ALT Alkaline Phosphatase Total Creatine Kinase Troponin I High Sens Total Protein Albumin Lipase TSH 0.70 Free T4 1.10 Hold Red Top Urine Color Urine Appearance Urine pH Ur Specific [place] Urine Protein Urine Glucose (UA) Urine Ketones Urine Blood Urine Nitrite Ur Leukocyte Esterase Urine RBC Urine WBC Ur Squamous Epith Cells Urine Bacteria Hyaline Casts Urine Test CSF Tube Number CSF Volume CSF Appearance CSF Color CSF WBC CSF RBC CSF Lymphocytes CSF Monocytes % CSF Appearance (b) CSF Glucose CSF Total Protein Vancomycin Trough Random Vancomycin Urine Opiates Screen Urine Fentanyl Screen Ur Barbiturates Screen Ur Phencyclidine Scrn Ur Amphetamines Screen U Benzodiazepines Scrn Urine Cocaine Screen U Marijuana (THC) Screen Ethyl Alcohol Thyroglobulin Antibody 160 H Thyroid Peroxidase Ab 26 H Respiratory Panel [place] See Note Adenovirus (Rapid PCR) Not Detected B.pert (TEM-PCR) Not Detected B.parapertussis DNA PCR Not Detected C. pneumoniae DNA (PCR) Not Detected Coronavirus OC43 (PCR) Not Detected Coronavirus HKU1 (PCR) Not Detected Coronavirus 229E (PCR) Not Detected Coronavirus NL63 (PCR) Not Detected Hepatitis C Ab (EIA) HIV 1&2 Ab/P24 Ag 4thGn Human Metapneumovir PCR Not Detected Influenza A (RT-PCR) Not Detected Influenza Type A (PCR) Influenza B (RT-PCR) Not Detected Influenza Type B (PCR) M. pneumoniae (PCR) Not Detected Parainfluenza 1 (PCR) Not Detected Parainfluenza 2 (PCR) Not Detected Parainfluenza 3 (PCR) Not Detected Parainfluenza 4 (PCR) Not Detected RSV (PCR) Not Detected RSV RNA Qual (PCR) Entero/Rhino (PCR) Not Detected SARS-CoV-2 RNA (RT-PCR) Not Detected Blood Type Antibody Screen Crossmatch 08/16/23 08/17/23 08/17/23 12:59 04:43 04:47 WBC 15.6 H RBC 4.29 Hgb 13.7 Hct 41.3 MCV 96.3 MCH 31.9 MCHC 33.2 RDW 13.1 Plt Count 266 D MPV 11.5 Immature Gran % (Auto) 0.3 Neut % (Auto) 73.5 H Lymph % (Auto) 15.9 L [place] % (Auto) 10.1 Eos % (Auto) 0.0 Baso % (Auto) 0.2 Lymph # (Auto) 2.5 [place] # (Auto) 1.6 H Eos # (Auto) 0.0 Baso # (Auto) 0.0 Abs Immat Gran (auto) 0.04 H Absolute Neuts (auto) 11.5 H Absolute Nucleated RBC 0.000 Nucleated RBC % (auto) 0.0 Smear Tech's Comments Hold Purple Top PT INR APTT Hold Blue Top O2 Saturation ABG pH at Pt Temp ABG pCO2 at Pt Temp ABG pO2 at Pt Temp ABG HCO3 ABG Base Excess (Actual) VBG pH 7.46 H VBG pCO2 24 VBG pO2 125 VBG HCO3 17 L VBG O2 Saturation 99.0 VBG Base Excess -4.6 Sodium 140 Potassium 4.1 D Chloride 113 H Carbon Dioxide 15 L Anion Gap 16 BUN 16 Creatinine 1.06 Estim Creat Clear Calc 76.1 Estimated GFR 59 POC Glucose Random Glucose 158 H Fasting Glucose Lactic Acid Lactic Acid F/U @ 2Hr Lactic Acid F/U @ 4Hr 3.1 H* Calcium 8.2 L D Phosphorus 3.1 Magnesium 2.4 Total Bilirubin 0.4 Direct Bilirubin AST 397 H ALT 135 H Alkaline Phosphatase 53 Total Creatine Kinase Troponin I High Sens Total Protein 6.1 L Albumin 3.2 L Lipase TSH Free T4 Hold Red Top Urine Color Urine Appearance Urine pH Ur Specific [place] Urine Protein Urine Glucose (UA) Urine Ketones Urine Blood Urine Nitrite Ur Leukocyte Esterase Urine RBC Urine WBC Ur Squamous Epith Cells Urine Bacteria Hyaline Casts Urine Test CSF Tube Number CSF Volume CSF Appearance CSF Color CSF WBC CSF RBC CSF Lymphocytes CSF Monocytes % CSF Appearance (b) CSF Glucose CSF Total Protein Vancomycin Trough Random Vancomycin Urine Opiates Screen Urine Fentanyl Screen Ur Barbiturates Screen Ur Phencyclidine Scrn Ur Amphetamines Screen U Benzodiazepines Scrn Urine Cocaine Screen U Marijuana (THC) Screen Ethyl Alcohol Thyroglobulin Antibody Thyroid Peroxidase Ab Respiratory Panel [place] Adenovirus (Rapid PCR) B.pert (TEM-PCR) B.parapertussis DNA PCR C. pneumoniae DNA (PCR) Coronavirus OC43 (PCR) Coronavirus HKU1 (PCR) Coronavirus 229E (PCR) Coronavirus NL63 (PCR) Hepatitis C Ab (EIA) HIV 1&2 Ab/P24 Ag 4thGn Human Metapneumovir PCR Influenza A (RT-PCR) Influenza Type A (PCR) Influenza B (RT-PCR) Influenza Type B (PCR) M. pneumoniae (PCR) Parainfluenza 1 (PCR) Parainfluenza 2 (PCR) Parainfluenza 3 (PCR) Parainfluenza 4 (PCR) RSV (PCR) RSV RNA Qual (PCR) Entero/Rhino (PCR) SARS-CoV-2 RNA (RT-PCR) Blood Type Antibody Screen Crossmatch 08/17/23 08/18/23 08/18/23 Unknown 04:28 04:34 WBC 13.7 H RBC 3.88 L Hgb 12.4 Hct 37.9 MCV 97.7 MCH 32.0 MCHC 32.7 RDW 13.2 Plt Count 250 MPV 11.1 Immature Gran % (Auto) 0.4 Neut % (Auto) 58.7 Lymph % (Auto) 32.7 [place] % (Auto) 7.9 Eos % (Auto) 0.1 Baso % (Auto) 0.2 Lymph # (Auto) 4.5 [place] # (Auto) 1.1 Eos # (Auto) 0.0 Baso # (Auto) 0.0 Abs Immat Gran (auto) 0.05 H Absolute Neuts (auto) 8.0 Absolute Nucleated RBC 0.000 Nucleated RBC % (auto) 0.0 Smear Tech's Comments VERIFIED Hold Purple Top PT INR APTT Hold Blue Top O2 Saturation ABG pH at Pt Temp ABG pCO2 at Pt Temp ABG pO2 at Pt Temp ABG HCO3 ABG Base Excess (Actual) VBG pH 7.50 H VBG pCO2 32 VBG pO2 47 VBG HCO3 25 VBG O2 Saturation 80.0 VBG Base Excess 2.8 Sodium 143 Potassium 4.0 Chloride 111 H Carbon Dioxide 20 L Anion Gap 16 BUN 12 Creatinine 0.79 Estim Creat Clear Calc 108.0 Estimated GFR > 60 POC Glucose Random Glucose 99 Fasting Glucose Lactic Acid Lactic Acid F/U @ 2Hr Lactic Acid F/U @ 4Hr Calcium 8.5 Phosphorus 2.8 Magnesium 2.5 Total Bilirubin 0.4 Direct Bilirubin AST 296 H ALT 110 H Alkaline Phosphatase 62 Total Creatine Kinase 50575 H Troponin I High Sens Total Protein 5.5 L Albumin 3.0 L Lipase TSH Free T4 Hold Red Top Urine Color Urine Appearance Urine pH Ur Specific [place] Urine Protein Urine Glucose (UA) Urine Ketones Urine Blood Urine Nitrite Ur Leukocyte Esterase Urine RBC Urine WBC Ur Squamous Epith Cells Urine Bacteria Hyaline Casts Urine Test NEGATIVE CSF Tube Number CSF Volume CSF Appearance CSF Color CSF WBC CSF RBC CSF Lymphocytes CSF Monocytes % CSF Appearance (b) CSF Glucose CSF Total Protein Vancomycin Trough 10.1 Random Vancomycin Urine Opiates Screen Urine Fentanyl Screen Ur Barbiturates Screen Ur Phencyclidine Scrn Ur Amphetamines Screen U Benzodiazepines Scrn Urine Cocaine Screen U Marijuana (THC) Screen Ethyl Alcohol Thyroglobulin Antibody Thyroid Peroxidase Ab Respiratory Panel [place] Adenovirus (Rapid PCR) B.pert (TEM-PCR) B.parapertussis DNA PCR C. pneumoniae DNA (PCR) Coronavirus OC43 (PCR) Coronavirus HKU1 (PCR) Coronavirus 229E (PCR) Coronavirus NL63 (PCR) Hepatitis C Ab (EIA) HIV 1&2 Ab/P24 Ag 4thGn Human Metapneumovir PCR Influenza A (RT-PCR) Influenza Type A (PCR) Influenza B (RT-PCR) Influenza Type B (PCR) M. pneumoniae (PCR) Parainfluenza 1 (PCR) Parainfluenza 2 (PCR) Parainfluenza 3 (PCR) Parainfluenza 4 (PCR) RSV (PCR) RSV RNA Qual (PCR) Entero/Rhino (PCR) SARS-CoV-2 RNA (RT-PCR) Blood Type Antibody Screen Crossmatch 08/19/23 08/19/23 08/19/23 05:05 05:16 17:53 WBC 13.8 H RBC 3.33 L Hgb 10.7 L Hct 32.6 L MCV 97.9 MCH 32.1 MCHC 32.8 RDW 13.0 Plt Count 225 MPV 11.3 Immature Gran % (Auto) 0.7 H Neut % (Auto) 50.5 Lymph % (Auto) 42.0 H [place] % (Auto) 6.4 Eos % (Auto) 0.1 Baso % (Auto) 0.3 Lymph # (Auto) 5.8 H [place] # (Auto) 0.9 Eos # (Auto) 0.0 Baso # (Auto) 0.0 Abs Immat Gran (auto) 0.09 H Absolute Neuts (auto) 7.0 Absolute Nucleated RBC 0.000 Nucleated RBC % (auto) 0.0 Smear Tech's Comments VERIFIED Hold Purple Top PT INR APTT Hold Blue Top O2 Saturation ABG pH at Pt Temp ABG pCO2 at Pt Temp ABG pO2 at Pt Temp ABG HCO3 ABG Base Excess (Actual) VBG pH 7.58 H VBG pCO2 30 VBG pO2 47 VBG HCO3 28 H VBG O2 Saturation 81.0 VBG Base Excess 7.1 Sodium 143 Potassium 3.8 Chloride 110 H Carbon Dioxide 24 Anion Gap 13 BUN 12 Creatinine 0.71 Estim Creat Clear Calc 121.6 Estimated GFR > 60 POC Glucose Random Glucose 87 Fasting Glucose Lactic Acid Lactic Acid F/U @ 2Hr Lactic Acid F/U @ 4Hr Calcium 8.3 L Phosphorus 1.9 L Magnesium 2.3 Total Bilirubin 0.6 Direct Bilirubin AST 247 H ALT 96 H Alkaline Phosphatase 46 Total Creatine Kinase 34377 H Troponin I High Sens Total Protein 5.3 L Albumin 2.8 L Lipase TSH Free T4 Hold Red Top Urine Color Urine Appearance Urine pH Ur Specific [place] Urine Protein Urine Glucose (UA) Urine Ketones Urine Blood Urine Nitrite Ur Leukocyte Esterase Urine RBC Urine WBC Ur Squamous Epith Cells Urine Bacteria Hyaline Casts Urine Test CSF Tube Number CSF Volume CSF Appearance CSF Color CSF WBC CSF RBC CSF Lymphocytes CSF Monocytes % CSF Appearance (b) CSF Glucose CSF Total Protein Vancomycin Trough Random Vancomycin 11.6 L Urine Opiates Screen Urine Fentanyl Screen Ur Barbiturates Screen Ur Phencyclidine Scrn Ur Amphetamines Screen U Benzodiazepines Scrn Urine Cocaine Screen U Marijuana (THC) Screen Ethyl Alcohol Thyroglobulin Antibody Thyroid Peroxidase Ab Respiratory Panel [place] Adenovirus (Rapid PCR) B.pert (TEM-PCR) B.parapertussis DNA PCR C. pneumoniae DNA (PCR) Coronavirus OC43 (PCR) Coronavirus HKU1 (PCR) Coronavirus 229E (PCR) Coronavirus NL63 (PCR) Hepatitis C Ab (EIA) HIV 1&2 Ab/P24 Ag 4thGn Human Metapneumovir PCR Influenza A (RT-PCR) Influenza Type A (PCR) Influenza B (RT-PCR) Influenza Type B (PCR) M. pneumoniae (PCR) Parainfluenza 1 (PCR) Parainfluenza 2 (PCR) Parainfluenza 3 (PCR) Parainfluenza 4 (PCR) RSV (PCR) RSV RNA Qual (PCR) Entero/Rhino (PCR) SARS-CoV-2 RNA (RT-PCR) Blood Type Antibody Screen Crossmatch 08/19/23 08/20/23 08/20/23 20:05 05:15 05:18 WBC 10.9 H RBC 3.02 L Hgb 9.6 L Hct 29.1 L MCV 96.4 MCH 31.8 MCHC 33.0 RDW 12.7 Plt Count 195 MPV 11.5 Immature Gran % (Auto) 0.5 H Neut % (Auto) 40.4 L Lymph % (Auto) 50.6 H Sherman % (Auto) 7.6 Eos % (Auto) 0.6 Baso % (Auto) 0.3 Lymph # (Auto) 5.5 H [place] # (Auto) 0.8 Eos # (Auto) 0.1 Baso # (Auto) 0.0 Abs Immat Gran (auto) 0.05 H Absolute Neuts (auto) 4.4 Absolute Nucleated RBC 0.000 Nucleated RBC % (auto) 0.0 Smear Tech's Comments VERIFIED Hold Purple Top PT INR APTT Hold Blue Top O2 Saturation ABG pH at Pt Temp ABG pCO2 at Pt Temp ABG pO2 at Pt Temp ABG HCO3 ABG Base Excess (Actual) VBG pH 7.50 H VBG pCO2 36 VBG pO2 54 VBG HCO3 28 H VBG O2 Saturation 84.0 VBG Base Excess 5.4 Sodium 143 144 Potassium 3.3 3.3 Chloride 109 H 110 H Carbon Dioxide 23 23 Anion Gap 14 14 BUN 12 15 Creatinine 0.70 0.68 Estim Creat Clear Calc 123.4 126.1 Estimated GFR > 60 > 60 POC Glucose Random Glucose 102 81 Fasting Glucose Lactic Acid Lactic Acid F/U @ 2Hr Lactic Acid F/U @ 4Hr Calcium 8.4 8.4 Phosphorus 2.9 2.6 L Magnesium 2.3 2.4 Total Bilirubin 1.0 Direct Bilirubin AST 209 H ALT 91 H Alkaline Phosphatase 37 L Total Creatine Kinase 8395 H Troponin I High Sens Total Protein 5.2 L Albumin 3.0 L 3.2 L Lipase TSH Free T4 Hold Red Top Urine Color Urine Appearance Urine pH Ur Specific [place] Urine Protein Urine Glucose (UA) Urine Ketones Urine Blood Urine Nitrite Ur Leukocyte Esterase Urine RBC Urine WBC Ur Squamous Epith Cells Urine Bacteria Hyaline Casts Urine Test CSF Tube Number CSF Volume CSF Appearance CSF Color CSF WBC CSF RBC CSF Lymphocytes CSF Monocytes % CSF Appearance (b) CSF Glucose CSF Total Protein Vancomycin Trough Random Vancomycin Urine Opiates Screen Urine Fentanyl Screen Ur Barbiturates Screen Ur Phencyclidine Scrn Ur Amphetamines Screen U Benzodiazepines Scrn Urine Cocaine Screen U Marijuana (THC) Screen Ethyl Alcohol Thyroglobulin Antibody Thyroid Peroxidase Ab Respiratory Panel [place] Adenovirus (Rapid PCR) B.pert (TEM-PCR) B.parapertussis DNA PCR C. pneumoniae DNA (PCR) Coronavirus OC43 (PCR) Coronavirus HKU1 (PCR) Coronavirus 229E (PCR) Coronavirus NL63 (PCR) Hepatitis C Ab (EIA) HIV 1&2 Ab/P24 Ag 4thGn Human Metapneumovir PCR Influenza A (RT-PCR) Influenza Type A (PCR) Influenza B (RT-PCR) Influenza Type B (PCR) M. pneumoniae (PCR) Parainfluenza 1 (PCR) Parainfluenza 2 (PCR) Parainfluenza 3 (PCR) Parainfluenza 4 (PCR) RSV (PCR) RSV RNA Qual (PCR) Entero/Rhino (PCR) SARS-CoV-2 RNA (RT-PCR) Blood Type Antibody Screen Crossmatch 08/20/23 08/20/23 08/21/23 07:51 18:01 06:43 WBC 13.1 H RBC 3.18 L Hgb 10.2 L Hct 30.3 L MCV 95.3 MCH 32.1 MCHC 33.7 RDW 12.6 Plt Count 243 MPV 11.6 Immature Gran % (Auto) Neut % (Auto) Lymph % (Auto) [place] % (Auto) Eos % (Auto) Baso % (Auto) Lymph # (Auto) [place] # (Auto) Eos # (Auto) Baso # (Auto) Abs Immat Gran (auto) Absolute Neuts (auto) Absolute Nucleated RBC 0.000 Nucleated RBC % (auto) 0.0 Smear Tech's Comments Hold Purple Top PT 11.4 INR 0.9 APTT 25.7 L Hold Blue Top O2 Saturation ABG pH at Pt Temp ABG pCO2 at Pt Temp ABG pO2 at Pt Temp ABG HCO3 ABG Base Excess (Actual) VBG pH VBG pCO2 VBG pO2 VBG HCO3 VBG O2 Saturation VBG Base Excess Sodium 141 Potassium 3.0 L Chloride 108 Carbon Dioxide 22 Anion Gap 14 BUN 16 Creatinine 0.64 Estim Creat Clear Calc 133.9 Estimated GFR > 60 POC Glucose Random Glucose 94 Fasting Glucose Lactic Acid Lactic Acid F/U @ 2Hr Lactic Acid F/U @ 4Hr Calcium 8.5 Phosphorus Magnesium Total Bilirubin 0.8 Direct Bilirubin 0.3 AST 137 H ALT 84 H Alkaline Phosphatase 41 Total Creatine Kinase 4585 H Troponin I High Sens Total Protein 5.0 L Albumin 2.9 L Lipase TSH Free T4 Hold Red Top Urine Color Urine Appearance Urine pH Ur Specific [place] Urine Protein Urine Glucose (UA) Urine Ketones Urine Blood Urine Nitrite Ur Leukocyte Esterase Urine RBC Urine WBC Ur Squamous Epith Cells Urine Bacteria Hyaline Casts Urine Test CSF Tube Number CSF Volume CSF Appearance CSF Color CSF WBC CSF RBC CSF Lymphocytes CSF Monocytes % CSF Appearance (b) CSF Glucose CSF Total Protein Vancomycin Trough Random Vancomycin 18.1 Urine Opiates Screen Urine Fentanyl Screen Ur Barbiturates Screen Ur Phencyclidine Scrn Ur Amphetamines Screen U Benzodiazepines Scrn Urine Cocaine Screen U Marijuana (THC) Screen Ethyl Alcohol Thyroglobulin Antibody Thyroid Peroxidase Ab Respiratory Panel [place] Adenovirus (Rapid PCR) B.pert (TEM-PCR) B.parapertussis DNA PCR C. pneumoniae DNA (PCR) Coronavirus OC43 (PCR) Coronavirus HKU1 (PCR) Coronavirus 229E (PCR) Coronavirus NL63 (PCR) Hepatitis C Ab (EIA) HIV 1&2 Ab/P24 Ag 4thGn Human Metapneumovir PCR Influenza A (RT-PCR) Influenza Type A (PCR) Influenza B (RT-PCR) Influenza Type B (PCR) M. pneumoniae (PCR) Parainfluenza 1 (PCR) Parainfluenza 2 (PCR) Parainfluenza 3 (PCR) Parainfluenza 4 (PCR) RSV (PCR) RSV RNA Qual (PCR) Entero/Rhino (PCR) SARS-CoV-2 RNA (RT-PCR) Blood Type Antibody Screen Crossmatch 08/21/23 08/22/23 08/22/23 10:35 07:08 10:04 WBC 13.0 H RBC 3.32 L Hgb 10.5 L Hct 30.9 L MCV 93.1 MCH 31.6 MCHC 34.0 RDW 12.6 Plt Count 269 MPV 11.2 Immature Gran % (Auto) Neut % (Auto) Lymph % (Auto) [place] % (Auto) Eos % (Auto) Baso % (Auto) Lymph # (Auto) [place] # (Auto) Eos # (Auto) Baso # (Auto) Abs Immat Gran (auto) Absolute Neuts (auto) Absolute Nucleated RBC 0.000 Nucleated RBC % (auto) 0.0 Smear Tech's Comments Hold Purple Top PT INR APTT Hold Blue Top O2 Saturation ABG pH at Pt Temp ABG pCO2 at Pt Temp ABG pO2 at Pt Temp ABG HCO3 ABG Base Excess (Actual) VBG pH VBG pCO2 VBG pO2 VBG HCO3 VBG O2 Saturation VBG Base Excess Sodium 142 Potassium 2.7 L Chloride 107 Carbon Dioxide 25 Anion Gap 13 BUN 11 Creatinine 0.54 Estim Creat Clear Calc 158.7 Estimated GFR > 60 POC Glucose Random Glucose 88 Fasting Glucose Lactic Acid Lactic Acid F/U @ 2Hr Lactic Acid F/U @ 4Hr Calcium 7.7 L D Phosphorus Magnesium Total Bilirubin Direct Bilirubin AST ALT Alkaline Phosphatase Total Creatine Kinase 2349 H Troponin I High Sens Total Protein Albumin Lipase TSH Free T4 Hold Red Top Urine Color Urine Appearance Urine pH Ur Specific [place] Urine Protein Urine Glucose (UA) Urine Ketones Urine Blood Urine Nitrite Ur Leukocyte Esterase Urine RBC Urine WBC Ur Squamous Epith Cells Urine Bacteria Hyaline Casts Urine Test CSF Tube Number CSF Volume CSF Appearance CSF Color CSF WBC CSF RBC CSF Lymphocytes CSF Monocytes % CSF Appearance (b) CSF Glucose CSF Total Protein Vancomycin Trough 15.6 Random Vancomycin 14.3 L Urine Opiates Screen Urine Fentanyl Screen Ur Barbiturates Screen Ur Phencyclidine Scrn Ur Amphetamines Screen U Benzodiazepines Scrn Urine Cocaine Screen U Marijuana (THC) Screen Ethyl Alcohol Thyroglobulin Antibody Thyroid Peroxidase Ab Respiratory Panel [place] Adenovirus (Rapid PCR) B.pert (TEM-PCR) B.parapertussis DNA PCR C. pneumoniae DNA (PCR) Coronavirus OC43 (PCR) Coronavirus HKU1 (PCR) Coronavirus 229E (PCR) Coronavirus NL63 (PCR) Hepatitis C Ab (EIA) HIV 1&2 Ab/P24 Ag 4thGn Human Metapneumovir PCR Influenza A (RT-PCR) Influenza Type A (PCR) Influenza B (RT-PCR) Influenza Type B (PCR) M. pneumoniae (PCR) Parainfluenza 1 (PCR) Parainfluenza 2 (PCR) Parainfluenza 3 (PCR) Parainfluenza 4 (PCR) RSV (PCR) RSV RNA Qual (PCR) Entero/Rhino (PCR) SARS-CoV-2 RNA (RT-PCR) Blood Type Antibody Screen Crossmatch 08/22/23 08/23/23 08/23/23 18:35 07:09 13:18 WBC 10.4 RBC 3.13 L Hgb 10.1 L Hct 29.7 L MCV 94.9 MCH 32.3 MCHC 34.0 RDW 12.5 Plt Count 276 MPV 11.2 Immature Gran % (Auto) Neut % (Auto) Lymph % (Auto) [place] % (Auto) Eos % (Auto) Baso % (Auto) Lymph # (Auto) [place] # (Auto) Eos # (Auto) Baso # (Auto) Abs Immat Gran (auto) Absolute Neuts (auto) Absolute Nucleated RBC 0.000 Nucleated RBC % (auto) 0.0 Smear Tech's Comments Hold Purple Top PT INR APTT Hold Blue Top O2 Saturation ABG pH at Pt Temp ABG pCO2 at Pt Temp ABG pO2 at Pt Temp ABG HCO3 ABG Base Excess (Actual) VBG pH VBG pCO2 VBG pO2 VBG HCO3 VBG O2 Saturation VBG Base Excess Sodium 139 138 138 Potassium 3.1 L 2.7 L 3.3 D Chloride 103 104 104 Carbon Dioxide 25 24 27 Anion Gap 14 13 10 L BUN 8 L 7 L 7 L Creatinine 0.57 0.57 0.58 Estim Creat Clear Calc 150.4 150.4 147.7 Estimated GFR > 60 > 60 > 60 POC Glucose Random Glucose 127 H 95 104 Fasting Glucose Lactic Acid Lactic Acid F/U @ 2Hr Lactic Acid F/U @ 4Hr Calcium 8.6 D 8.1 L 8.0 L Phosphorus Magnesium Total Bilirubin Direct Bilirubin AST ALT Alkaline Phosphatase Total Creatine Kinase Troponin I High Sens Total Protein Albumin Lipase TSH Free T4 Hold Red Top Urine Color Urine Appearance Urine pH Ur Specific [place] Urine Protein Urine Glucose (UA) Urine Ketones Urine Blood Urine Nitrite Ur Leukocyte Esterase Urine RBC Urine WBC Ur Squamous Epith Cells Urine Bacteria Hyaline Casts Urine Test CSF Tube Number CSF Volume CSF Appearance CSF Color CSF WBC CSF RBC CSF Lymphocytes CSF Monocytes % CSF Appearance (b) CSF Glucose CSF Total Protein Vancomycin Trough Random Vancomycin 22.9 H Urine Opiates Screen Urine Fentanyl Screen Ur Barbiturates Screen Ur Phencyclidine Scrn Ur Amphetamines Screen U Benzodiazepines Scrn Urine Cocaine Screen U Marijuana (THC) Screen Ethyl Alcohol Thyroglobulin Antibody Thyroid Peroxidase Ab Respiratory Panel [place] Adenovirus (Rapid PCR) B.pert (TEM-PCR) B.parapertussis DNA PCR C. pneumoniae DNA (PCR) Coronavirus OC43 (PCR) Coronavirus HKU1 (PCR) Coronavirus 229E (PCR) Coronavirus NL63 (PCR) Hepatitis C Ab (EIA) HIV 1&2 Ab/P24 Ag 4thGn Human Metapneumovir PCR Influenza A (RT-PCR) Influenza Type A (PCR) Influenza B (RT-PCR) Influenza Type B (PCR) M. pneumoniae (PCR) Parainfluenza 1 (PCR) Parainfluenza 2 (PCR) Parainfluenza 3 (PCR) Parainfluenza 4 (PCR) RSV (PCR) RSV RNA Qual (PCR) Entero/Rhino (PCR) SARS-CoV-2 RNA (RT-PCR) Blood Type Antibody Screen Crossmatch 08/23/23 08/24/23 08/25/23 18:04 07:12 06:26 WBC 9.4 RBC 2.78 L Hgb 8.8 L Hct 26.4 L MCV 95.0 MCH 31.7 MCHC 33.3 RDW 12.8 Plt Count 234 MPV 10.6 Immature Gran % (Auto) Neut % (Auto) Lymph % (Auto) [place] % (Auto) Eos % (Auto) Baso % (Auto) Lymph # (Auto) [place] # (Auto) Eos # (Auto) Baso # (Auto) Abs Immat Gran (auto) Absolute Neuts (auto) Absolute Nucleated RBC 0.000 Nucleated RBC % (auto) 0.0 Smear Tech's Comments Hold Purple Top PT INR APTT Hold Blue Top O2 Saturation ABG pH at Pt Temp ABG pCO2 at Pt Temp ABG pO2 at Pt Temp ABG HCO3 ABG Base Excess (Actual) VBG pH VBG pCO2 VBG pO2 VBG HCO3 VBG O2 Saturation VBG Base Excess Sodium 139 Potassium 3.1 L Chloride 106 Carbon Dioxide 24 Anion Gap 12 BUN 5 L Creatinine 0.53 0.59 Estim Creat Clear Calc 161.7 145.3 Estimated GFR > 60 > 60 POC Glucose Random Glucose 89 Fasting Glucose Lactic Acid Lactic Acid F/U @ 2Hr Lactic Acid F/U @ 4Hr Calcium 7.7 L Phosphorus Magnesium Total Bilirubin Direct Bilirubin AST ALT Alkaline Phosphatase Total Creatine Kinase Troponin I High Sens Total Protein Albumin Lipase TSH Free T4 Hold Red Top Urine Color Urine Appearance Urine pH Ur Specific [place] Urine Protein Urine Glucose (UA) Urine Ketones Urine Blood Urine Nitrite Ur Leukocyte Esterase Urine RBC Urine WBC Ur Squamous Epith Cells Urine Bacteria Hyaline Casts Urine Test CSF Tube Number CSF Volume CSF Appearance CSF Color CSF WBC CSF RBC CSF Lymphocytes CSF Monocytes % CSF Appearance (b) CSF Glucose CSF Total Protein Vancomycin Trough Random Vancomycin 14.3 L Urine Opiates Screen Urine Fentanyl Screen Ur Barbiturates Screen Ur Phencyclidine Scrn Ur Amphetamines Screen U Benzodiazepines Scrn Urine Cocaine Screen U Marijuana (THC) Screen Ethyl Alcohol Thyroglobulin Antibody Thyroid Peroxidase Ab Respiratory Panel [place] Adenovirus (Rapid PCR) B.pert (TEM-PCR) B.parapertussis DNA PCR C. pneumoniae DNA (PCR) Coronavirus OC43 (PCR) Coronavirus HKU1 (PCR) Coronavirus 229E (PCR) Coronavirus NL63 (PCR) Hepatitis C Ab (EIA) HIV 1&2 Ab/P24 Ag 4thGn Human Metapneumovir PCR Influenza A (RT-PCR) Influenza Type A (PCR) Influenza B (RT-PCR) Influenza Type B (PCR) M. pneumoniae (PCR) Parainfluenza 1 (PCR) Parainfluenza 2 (PCR) Parainfluenza 3 (PCR) Parainfluenza 4 (PCR) RSV (PCR) RSV RNA Qual (PCR) Entero/Rhino (PCR) SARS-CoV-2 RNA (RT-PCR) Blood Type Antibody Screen Crossmatch 08/25/23 08/25/23 08/26/23 08:31 10:44 06:35 WBC 11.5 H RBC 2.53 L Hgb 10.1 L 7.9 L D Hct 30.7 L 24.1 L D MCV 95.3 MCH 31.2 MCHC 32.8 RDW 12.6 Plt Count 272 MPV 11.3 Immature Gran % (Auto) Neut % (Auto) Lymph % (Auto) [place] % (Auto) Eos % (Auto) Baso % (Auto) Lymph # (Auto) [place] # (Auto) Eos # (Auto) Baso # (Auto) Abs Immat Gran (auto) Absolute Neuts (auto) Absolute Nucleated RBC 0.000 Nucleated RBC % (auto) 0.0 Smear Tech's Comments Hold Purple Top SEE NOTE PT INR APTT Hold Blue Top O2 Saturation ABG pH at Pt Temp ABG pCO2 at Pt Temp ABG pO2 at Pt Temp ABG HCO3 ABG Base Excess (Actual) VBG pH VBG pCO2 VBG pO2 VBG HCO3 VBG O2 Saturation VBG Base Excess Sodium 137 135 Potassium 3.5 3.7 Chloride 99 101 Carbon Dioxide 27 24 Anion Gap 15 14 BUN 7 L Creatinine 0.64 Estim Creat Clear Calc 133.9 Estimated GFR > 60 POC Glucose Random Glucose Fasting Glucose 104 H Lactic Acid Lactic Acid F/U @ 2Hr Lactic Acid F/U @ 4Hr Calcium 8.4 D Phosphorus Magnesium Total Bilirubin Direct Bilirubin AST ALT Alkaline Phosphatase Total Creatine Kinase Troponin I High Sens Total Protein Albumin Lipase TSH Free T4 Hold Red Top Urine Color Urine Appearance Urine pH Ur Specific [place] Urine Protein Urine Glucose (UA) Urine Ketones Urine Blood Urine Nitrite Ur Leukocyte Esterase Urine RBC Urine WBC Ur Squamous Epith Cells Urine Bacteria Hyaline Casts Urine Test CSF Tube Number CSF Volume CSF Appearance CSF Color CSF WBC CSF RBC CSF Lymphocytes CSF Monocytes % CSF Appearance (b) CSF Glucose CSF Total Protein Vancomycin Trough Random Vancomycin Urine Opiates Screen Urine Fentanyl Screen Ur Barbiturates Screen Ur Phencyclidine Scrn Ur Amphetamines Screen U Benzodiazepines Scrn Urine Cocaine Screen U Marijuana (THC) Screen Ethyl Alcohol Thyroglobulin Antibody Thyroid Peroxidase Ab Respiratory Panel [place] Adenovirus (Rapid PCR) B.pert (TEM-PCR) B.parapertussis DNA PCR C. pneumoniae DNA (PCR) Coronavirus OC43 (PCR) Coronavirus HKU1 (PCR) Coronavirus 229E (PCR) Coronavirus NL63 (PCR) Hepatitis C Ab (EIA) HIV 1&2 Ab/P24 Ag 4thGn Human Metapneumovir PCR Influenza A (RT-PCR) Influenza Type A (PCR) Influenza B (RT-PCR) Influenza Type B (PCR) M. pneumoniae (PCR) Parainfluenza 1 (PCR) Parainfluenza 2 (PCR) Parainfluenza 3 (PCR) Parainfluenza 4 (PCR) RSV (PCR) RSV RNA Qual (PCR) Entero/Rhino (PCR) SARS-CoV-2 RNA (RT-PCR) Blood Type B Positive Antibody Screen NEGATIVE Crossmatch 08/26/23 08/27/23 08/27/23 15:01 06:07 15:05 WBC 10.5 RBC 2.55 L Hgb 8.2 L Hct 24.5 L MCV 96.1 MCH 32.2 MCHC 33.5 RDW 12.4 Plt Count 306 MPV 11.5 Immature Gran % (Auto) Neut % (Auto) Lymph % (Auto) [place] % (Auto) Eos % (Auto) Baso % (Auto) Lymph # (Auto) [place] # (Auto) Eos # (Auto) Baso # (Auto) Abs Immat Gran (auto) Absolute Neuts (auto) Absolute Nucleated RBC 0.000 Nucleated RBC % (auto) 0.0 Smear Tech's Comments Hold Purple Top PT INR APTT Hold Blue Top O2 Saturation ABG pH at Pt Temp ABG pCO2 at Pt Temp ABG pO2 at Pt Temp ABG HCO3 ABG Base Excess (Actual) VBG pH VBG pCO2 VBG pO2 VBG HCO3 VBG O2 Saturation VBG Base Excess Sodium 138 Potassium 3.9 Chloride 103 Carbon Dioxide 25 Anion Gap 14 BUN 5 L Creatinine 0.66 Estim Creat Clear Calc 129.8 Estimated GFR > 60 POC Glucose Random Glucose Fasting Glucose 105 H Lactic Acid Lactic Acid F/U @ 2Hr Lactic Acid F/U @ 4Hr Calcium 8.4 Phosphorus Magnesium Total Bilirubin Direct Bilirubin AST ALT Alkaline Phosphatase Total Creatine Kinase Troponin I High Sens Total Protein Albumin Lipase TSH Free T4 Hold Red Top Urine Color Urine Appearance Urine pH Ur Specific [place] Urine Protein Urine Glucose (UA) Urine Ketones Urine Blood Urine Nitrite Ur Leukocyte Esterase Urine RBC Urine WBC Ur Squamous Epith Cells Urine Bacteria Hyaline Casts Urine Test CSF Tube Number CSF Volume CSF Appearance CSF Color CSF WBC CSF RBC CSF Lymphocytes CSF Monocytes % CSF Appearance (b) CSF Glucose CSF Total Protein Vancomycin Trough Random Vancomycin 8.1 L 19.2 Urine Opiates Screen Urine Fentanyl Screen Ur Barbiturates Screen Ur Phencyclidine Scrn Ur Amphetamines Screen U Benzodiazepines Scrn Urine Cocaine Screen U Marijuana (THC) Screen Ethyl Alcohol Thyroglobulin Antibody Thyroid Peroxidase Ab Respiratory Panel [place] Adenovirus (Rapid PCR) B.pert (TEM-PCR) B.parapertussis DNA PCR C. pneumoniae DNA (PCR) Coronavirus OC43 (PCR) Coronavirus HKU1 (PCR) Coronavirus 229E (PCR) Coronavirus NL63 (PCR) Hepatitis C Ab (EIA) HIV 1&2 Ab/P24 Ag 4thGn Human Metapneumovir PCR Influenza A (RT-PCR) Influenza Type A (PCR) Influenza B (RT-PCR) Influenza Type B (PCR) M. pneumoniae (PCR) Parainfluenza 1 (PCR) Parainfluenza 2 (PCR) Parainfluenza 3 (PCR) Parainfluenza 4 (PCR) RSV (PCR) RSV RNA Qual (PCR) Entero/Rhino (PCR) SARS-CoV-2 RNA (RT-PCR) Blood Type Antibody Screen Crossmatch 08/28/23 08/28/23 08/28/23 07:25 13:38 16:28 WBC RBC Hgb Hct MCV MCH MCHC RDW Plt Count MPV Immature Gran % (Auto) Neut % (Auto) Lymph % (Auto) [place] % (Auto) Eos % (Auto) Baso % (Auto) Lymph # (Auto) [place] # (Auto) Eos # (Auto) Baso # (Auto) Abs Immat Gran (auto) Absolute Neuts (auto) Absolute Nucleated RBC Nucleated RBC % (auto) Smear Tech's Comments Hold Purple Top SEE NOTE PT INR APTT Hold Blue Top O2 Saturation ABG pH at Pt Temp ABG pCO2 at Pt Temp ABG pO2 at Pt Temp ABG HCO3 ABG Base Excess (Actual) VBG pH VBG pCO2 VBG pO2 VBG HCO3 VBG O2 Saturation VBG Base Excess Sodium Potassium Chloride Carbon Dioxide Anion Gap BUN Creatinine 0.72 Estim Creat Clear Calc 119.0 Estimated GFR > 60 POC Glucose Random Glucose Fasting Glucose Lactic Acid Lactic Acid F/U @ 2Hr Lactic Acid F/U @ 4Hr Calcium Phosphorus Magnesium Total Bilirubin Direct Bilirubin AST ALT Alkaline Phosphatase Total Creatine Kinase Troponin I High Sens Total Protein Albumin Lipase TSH Free T4 Hold Red Top Urine Color Urine Appearance Urine pH Ur Specific [place] Urine Protein Urine Glucose (UA) Urine Ketones Urine Blood Urine Nitrite Ur Leukocyte Esterase Urine RBC Urine WBC Ur Squamous Epith Cells Urine Bacteria Hyaline Casts Urine Test CSF Tube Number CSF Volume CSF Appearance CSF Color CSF WBC CSF RBC CSF Lymphocytes CSF Monocytes % CSF Appearance (b) CSF Glucose CSF Total Protein Vancomycin Trough Random Vancomycin 13.5 L Urine Opiates Screen Urine Fentanyl Screen Ur Barbiturates Screen Ur Phencyclidine Scrn Ur Amphetamines Screen U Benzodiazepines Scrn Urine Cocaine Screen U Marijuana (THC) Screen Ethyl Alcohol Thyroglobulin Antibody Thyroid Peroxidase Ab Respiratory Panel [place] Adenovirus (Rapid PCR) B.pert (TEM-PCR) B.parapertussis DNA PCR C. pneumoniae DNA (PCR) Coronavirus OC43 (PCR) Coronavirus HKU1 (PCR) Coronavirus 229E (PCR) Coronavirus NL63 (PCR) Hepatitis C Ab (EIA) HIV 1&2 Ab/P24 Ag 4thGn Human Metapneumovir PCR Influenza A (RT-PCR) Influenza Type A (PCR) Cancelled Influenza B (RT-PCR) Influenza Type B (PCR) Cancelled M. pneumoniae (PCR) Parainfluenza 1 (PCR) Parainfluenza 2 (PCR) Parainfluenza 3 (PCR) Parainfluenza 4 (PCR) RSV (PCR) RSV RNA Qual (PCR) Cancelled Entero/Rhino (PCR) SARS-CoV-2 RNA (RT-PCR) Cancelled Blood Type B Positive Antibody Screen NEGATIVE Crossmatch 08/28/23 08/29/23 08/29/23 19:00 07:04 14:19 WBC 8.1 RBC 2.32 L Hgb 7.6 L 7.2 L Hct 22.2 L 22.2 L MCV 95.7 MCH 31.0 MCHC 32.4 RDW 12.5 Plt Count 324 MPV 11.4 Immature Gran % (Auto) Neut % (Auto) Lymph % (Auto) [place] % (Auto) Eos % (Auto) Baso % (Auto) Lymph # (Auto) [place] # (Auto) Eos # (Auto) Baso # (Auto) Abs Immat Gran (auto) Absolute Neuts (auto) Absolute Nucleated RBC 0.000 Nucleated RBC % (auto) 0.0 Smear Tech's Comments Hold Purple Top PT INR APTT Hold Blue Top O2 Saturation ABG pH at Pt Temp ABG pCO2 at Pt Temp ABG pO2 at Pt Temp ABG HCO3 ABG Base Excess (Actual) VBG pH VBG pCO2 VBG pO2 VBG HCO3 VBG O2 Saturation VBG Base Excess Sodium 136 Potassium 3.5 Chloride 102 Carbon Dioxide 23 Anion Gap 15 BUN 5 L Creatinine 0.75 Estim Creat Clear Calc 114.2 Estimated GFR > 60 POC Glucose Random Glucose Fasting Glucose 109 H Lactic Acid Lactic Acid F/U @ 2Hr Lactic Acid F/U @ 4Hr Calcium 8.4 Phosphorus Magnesium Total Bilirubin Direct Bilirubin AST ALT Alkaline Phosphatase Total Creatine Kinase Troponin I High Sens Total Protein Albumin Lipase TSH Free T4 Hold Red Top See Note Urine Color Urine Appearance Urine pH Ur Specific [place] Urine Protein Urine Glucose (UA) Urine Ketones Urine Blood Urine Nitrite Ur Leukocyte Esterase Urine RBC Urine WBC Ur Squamous Epith Cells Urine Bacteria Hyaline Casts Urine Test CSF Tube Number CSF Volume CSF Appearance CSF Color CSF WBC CSF RBC CSF Lymphocytes CSF Monocytes % CSF Appearance (b) CSF Glucose CSF Total Protein Vancomycin Trough Random Vancomycin 12.4 L Urine Opiates Screen Urine Fentanyl Screen Ur Barbiturates Screen Ur Phencyclidine Scrn Ur Amphetamines Screen U Benzodiazepines Scrn Urine Cocaine Screen U Marijuana (THC) Screen Ethyl Alcohol Thyroglobulin Antibody Thyroid Peroxidase Ab Respiratory Panel [place] Adenovirus (Rapid PCR) B.pert (TEM-PCR) B.parapertussis DNA PCR C. pneumoniae DNA (PCR) Coronavirus OC43 (PCR) Coronavirus HKU1 (PCR) Coronavirus 229E (PCR) Coronavirus NL63 (PCR) Hepatitis C Ab (EIA) Nonreactive HIV 1&2 Ab/P24 Ag 4thGn Nonreactive Human Metapneumovir PCR Influenza A (RT-PCR) Influenza Type A (PCR) Influenza B (RT-PCR) Influenza Type B (PCR) M. pneumoniae (PCR) Parainfluenza 1 (PCR) Parainfluenza 2 (PCR) Parainfluenza 3 (PCR) Parainfluenza 4 (PCR) RSV (PCR) RSV RNA Qual (PCR) Entero/Rhino (PCR) SARS-CoV-2 RNA (RT-PCR) Blood Type Antibody Screen Crossmatch 08/30/23 08/30/23 08/31/23 06:00 14:42 10:02 WBC RBC Hgb Hct MCV MCH MCHC RDW Plt Count MPV Immature Gran % (Auto) Neut % (Auto) Lymph % (Auto) [place] % (Auto) Eos % (Auto) Baso % (Auto) Lymph # (Auto) Sherman # (Auto) Eos # (Auto) Baso # (Auto) Abs Immat Gran (auto) Absolute Neuts (auto) Absolute Nucleated RBC Nucleated RBC % (auto) Smear Tech's Comments Hold Purple Top SEE NOTE PT INR APTT Hold Blue Top O2 Saturation ABG pH at Pt Temp ABG pCO2 at Pt Temp ABG pO2 at Pt Temp ABG HCO3 ABG Base Excess (Actual) VBG pH VBG pCO2 VBG pO2 VBG HCO3 VBG O2 Saturation VBG Base Excess Sodium Potassium Chloride Carbon Dioxide Anion Gap BUN Creatinine 0.74 0.70 Estim Creat Clear Calc 115.8 122.4 Estimated GFR > 60 > 60 POC Glucose Random Glucose Fasting Glucose Lactic Acid Lactic Acid F/U @ 2Hr Lactic Acid F/U @ 4Hr Calcium Phosphorus Magnesium Total Bilirubin Direct Bilirubin AST ALT Alkaline Phosphatase Total Creatine Kinase Troponin I High Sens Total Protein Albumin Lipase TSH Free T4 Hold Red Top Urine Color Urine Appearance Urine pH Ur Specific [place] Urine Protein Urine Glucose (UA) Urine Ketones Urine Blood Urine Nitrite Ur Leukocyte Esterase Urine RBC Urine WBC Ur Squamous Epith Cells Urine Bacteria Hyaline Casts Urine Test CSF Tube Number CSF Volume CSF Appearance CSF Color CSF WBC CSF RBC CSF Lymphocytes CSF Monocytes % CSF Appearance (b) CSF Glucose CSF Total Protein Vancomycin Trough Random Vancomycin 12.9 L Urine Opiates Screen Urine Fentanyl Screen Ur Barbiturates Screen Ur Phencyclidine Scrn Ur Amphetamines Screen U Benzodiazepines Scrn Urine Cocaine Screen U Marijuana (THC) Screen Ethyl Alcohol Thyroglobulin Antibody Thyroid Peroxidase Ab Respiratory Panel Tate Adenovirus (Rapid PCR) B.pert (TEM-PCR) B.parapertussis DNA PCR C. pneumoniae DNA (PCR) Coronavirus OC43 (PCR) Coronavirus HKU1 (PCR) Coronavirus 229E (PCR) Coronavirus NL63 (PCR) Hepatitis C Ab (EIA) HIV 1&2 Ab/P24 Ag 4thGn Human Metapneumovir PCR Influenza A (RT-PCR) Influenza Type A (PCR) Influenza B (RT-PCR) Influenza Type B (PCR) M. pneumoniae (PCR) Parainfluenza 1 (PCR) Parainfluenza 2 (PCR) Parainfluenza 3 (PCR) Parainfluenza 4 (PCR) RSV (PCR) RSV RNA Qual (PCR) Entero/Rhino (PCR) SARS-CoV-2 RNA (RT-PCR) Blood Type Antibody Screen Crossmatch 08/31/23 08/31/23 08/31/23 13:49 19:20 19:57 WBC 5.6 RBC 2.01 L Hgb 6.2 L* Hct 19.7 L* MCV 98.0 MCH 30.8 MCHC 31.5 RDW 13.0 Plt Count 331 MPV 10.8 Immature Gran % (Auto) Neut % (Auto) Lymph % (Auto) Sherman % (Auto) Eos % (Auto) Baso % (Auto) Lymph # (Auto) Sherman # (Auto) Eos # (Auto) Baso # (Auto) Abs Immat Gran (auto) Absolute Neuts (auto) Absolute Nucleated RBC 0.000 Nucleated RBC % (auto) 0.0 Smear Tech's Comments Hold Purple Top PT INR APTT Hold Blue Top O2 Saturation ABG pH at Pt Temp ABG pCO2 at Pt Temp ABG pO2 at Pt Temp ABG HCO3 ABG Base Excess (Actual) VBG pH VBG pCO2 VBG pO2 VBG HCO3 VBG O2 Saturation VBG Base Excess Sodium 136 Potassium 3.5 Chloride 102 Carbon Dioxide 23 Anion Gap 15 BUN 6 L Creatinine 0.74 Estim Creat Clear Calc 115.8 Estimated GFR > 60 POC Glucose Random Glucose 98 Fasting Glucose Lactic Acid Lactic Acid F/U @ 2Hr Lactic Acid F/U @ 4Hr Calcium 8.5 Phosphorus Magnesium Total Bilirubin Direct Bilirubin AST ALT Alkaline Phosphatase Total Creatine Kinase Troponin I High Sens Total Protein Albumin Lipase TSH Free T4 Hold Red Top Urine Color Urine Appearance Urine pH Ur Specific [place] Urine Protein Urine Glucose (UA) Urine Ketones Urine Blood Urine Nitrite Ur Leukocyte Esterase Urine RBC Urine WBC Ur Squamous Epith Cells Urine Bacteria Hyaline Casts Urine Test CSF Tube Number CSF Volume CSF Appearance CSF Color CSF WBC CSF RBC CSF Lymphocytes CSF Monocytes % CSF Appearance (b) CSF Glucose CSF Total Protein Vancomycin Trough Random Vancomycin 17.5 Urine Opiates Screen Urine Fentanyl Screen Ur Barbiturates Screen Ur Phencyclidine Scrn Ur Amphetamines Screen U Benzodiazepines Scrn Urine Cocaine Screen U Marijuana (THC) Screen Ethyl Alcohol Thyroglobulin Antibody Thyroid Peroxidase Ab Respiratory Panel Tate Adenovirus (Rapid PCR) B.pert (TEM-PCR) B.parapertussis DNA PCR C. pneumoniae DNA (PCR) Coronavirus OC43 (PCR) Coronavirus HKU1 (PCR) Coronavirus 229E (PCR) Coronavirus NL63 (PCR) Hepatitis C Ab (EIA) HIV 1&2 Ab/P24 Ag 4thGn Human Metapneumovir PCR Influenza A (RT-PCR) Influenza Type A (PCR) Influenza B (RT-PCR) Influenza Type B (PCR) M. pneumoniae (PCR) Parainfluenza 1 (PCR) Parainfluenza 2 (PCR) Parainfluenza 3 (PCR) Parainfluenza 4 (PCR) RSV (PCR) RSV RNA Qual (PCR) Entero/Rhino (PCR) SARS-CoV-2 RNA (RT-PCR) Blood Type B Positive Antibody Screen NEGATIVE Crossmatch See Detail 09/01/23 09/01/23 09/01/23 06:34 08:40 10:27 WBC 5.1 RBC 2.31 L Hgb 7.2 L Hct 22.1 L MCV 95.7 MCH 31.2 MCHC 32.6 RDW 13.2 Plt Count 334 MPV 11.0 Immature Gran % (Auto) Neut % (Auto) Lymph % (Auto) Sherman % (Auto) Eos % (Auto) Baso % (Auto) Lymph # (Auto) Sherman # (Auto) Eos # (Auto) Baso # (Auto) Abs Immat Gran (auto) Absolute Neuts (auto) Absolute Nucleated RBC 0.000 Nucleated RBC % (auto) 0.0 Smear Tech's Comments Hold Purple Top PT INR APTT Hold Blue Top O2 Saturation ABG pH at Pt Temp ABG pCO2 at Pt Temp ABG pO2 at Pt Temp ABG HCO3 ABG Base Excess (Actual) VBG pH VBG pCO2 VBG pO2 VBG HCO3 VBG O2 Saturation VBG Base Excess Sodium 136 Potassium 3.5 Chloride 105 Carbon Dioxide 21 L Anion Gap 14 BUN 7 L Creatinine 0.72 Estim Creat Clear Calc 119.0 Estimated GFR > 60 POC Glucose Random Glucose 101 Fasting Glucose Lactic Acid 0.8 Lactic Acid F/U @ 2Hr Lactic Acid F/U @ 4Hr Calcium 8.2 L Phosphorus Magnesium Total Bilirubin 0.7 Direct Bilirubin 0.2 AST 30 ALT 26 Alkaline Phosphatase 42 Total Creatine Kinase Troponin I High Sens Total Protein 5.2 L Albumin 2.8 L Lipase TSH Free T4 Hold Red Top Urine Color Yellow Urine Appearance Cloudy Urine pH 8.0 Ur Specific [place] 1.010 Urine Protein Negative Urine Glucose (UA) Negative Urine Ketones Negative Urine Blood Trace H Urine Nitrite Negative Ur Leukocyte Esterase Small (1+) H Urine RBC >20 H Urine WBC 0-5 Ur Squamous Epith Cells 0-2 Urine Bacteria None Seen Hyaline Casts 0-2 Urine Test CSF Tube Number CSF Volume CSF Appearance CSF Color CSF WBC CSF RBC CSF Lymphocytes CSF Monocytes % CSF Appearance (b) CSF Glucose CSF Total Protein Vancomycin Trough Random Vancomycin Urine Opiates Screen POSITIVE H Urine Fentanyl Screen Not Detected Ur Barbiturates Screen Not Detected Ur Phencyclidine Scrn Not Detected Ur Amphetamines Screen Not Detected U Benzodiazepines Scrn Not Detected Urine Cocaine Screen Not Detected U Marijuana (THC) Screen Not Detected Ethyl Alcohol Thyroglobulin Antibody Thyroid Peroxidase Ab Respiratory Panel Tate Adenovirus (Rapid PCR) B.pert (TEM-PCR) B.parapertussis DNA PCR C. pneumoniae DNA (PCR) Coronavirus OC43 (PCR) Coronavirus HKU1 (PCR) Coronavirus 229E (PCR) Coronavirus NL63 (PCR) Hepatitis C Ab (EIA) HIV 1&2 Ab/P24 Ag 4thGn Human Metapneumovir PCR Influenza A (RT-PCR) Influenza Type A (PCR) Influenza B (RT-PCR) Influenza Type B (PCR) M. pneumoniae (PCR) Parainfluenza 1 (PCR) Parainfluenza 2 (PCR) Parainfluenza 3 (PCR) Parainfluenza 4 (PCR) RSV (PCR) RSV RNA Qual (PCR) Entero/Rhino (PCR) SARS-CoV-2 RNA (RT-PCR) Blood Type Antibody Screen Crossmatch 09/01/23 09/02/23 09/02/23 14:54 06:23 13:47 WBC 2.8 L RBC 2.44 L Hgb 7.6 L Hct 23.4 L MCV 95.9 MCH 31.1 MCHC 32.5 RDW 13.2 Plt Count 325 MPV 10.6 Immature Gran % (Auto) 0.4 Neut % (Auto) 51.9 Lymph % (Auto) 38.4 Sherman % (Auto) 7.2 Eos % (Auto) 1.4 Baso % (Auto) 0.7 Lymph # (Auto) 1.1 L Sherman # (Auto) 0.2 Eos # (Auto) 0.0 Baso # (Auto) 0.0 Abs Immat Gran (auto) 0.01 Absolute Neuts (auto) 1.5 L Absolute Nucleated RBC 0.000 Nucleated RBC % (auto) 0.0 Smear Tech's Comments Hold Purple Top PT INR APTT Hold Blue Top O2 Saturation ABG pH at Pt Temp ABG pCO2 at Pt Temp ABG pO2 at Pt Temp ABG HCO3 ABG Base Excess (Actual) VBG pH VBG pCO2 VBG pO2 VBG HCO3 VBG O2 Saturation VBG Base Excess Sodium 135 Potassium 3.3 Chloride 105 Carbon Dioxide 21 L Anion Gap 12 BUN 4 L Creatinine 0.77 Estim Creat Clear Calc 111.3 Estimated GFR > 60 POC Glucose Random Glucose 94 Fasting Glucose Lactic Acid Lactic Acid F/U @ 2Hr Lactic Acid F/U @ 4Hr Calcium 8.5 Phosphorus Magnesium Total Bilirubin Direct Bilirubin AST ALT Alkaline Phosphatase Total Creatine Kinase Troponin I High Sens Total Protein Albumin Lipase TSH Free T4 Hold Red Top Urine Color Urine Appearance Urine pH Ur Specific [place] Urine Protein Urine Glucose (UA) Urine Ketones Urine Blood Urine Nitrite Ur Leukocyte Esterase Urine RBC Urine WBC Ur Squamous Epith Cells Urine Bacteria Hyaline Casts Urine Test CSF Tube Number CSF Volume CSF Appearance CSF Color CSF WBC CSF RBC CSF Lymphocytes CSF Monocytes % CSF Appearance (b) CSF Glucose CSF Total Protein Vancomycin Trough 13.1 Random Vancomycin 14.3 L Urine Opiates Screen Urine Fentanyl Screen Ur Barbiturates Screen Ur Phencyclidine Scrn Ur Amphetamines Screen U Benzodiazepines Scrn Urine Cocaine Screen U Marijuana (THC) Screen Ethyl Alcohol Thyroglobulin Antibody Thyroid Peroxidase Ab Respiratory Panel Tate Adenovirus (Rapid PCR) B.pert (TEM-PCR) B.parapertussis DNA PCR C. pneumoniae DNA (PCR) Coronavirus OC43 (PCR) Coronavirus HKU1 (PCR) Coronavirus 229E (PCR) Coronavirus NL63 (PCR) Hepatitis C Ab (EIA) HIV 1&2 Ab/P24 Ag 4thGn Human Metapneumovir PCR Influenza A (RT-PCR) Influenza Type A (PCR) Influenza B (RT-PCR) Influenza Type B (PCR) M. pneumoniae (PCR) Parainfluenza 1 (PCR) Parainfluenza 2 (PCR) Parainfluenza 3 (PCR) Parainfluenza 4 (PCR) RSV (PCR) RSV RNA Qual (PCR) Entero/Rhino (PCR) SARS-CoV-2 RNA (RT-PCR) Blood Type Antibody Screen Crossmatch 09/03/23 09/03/23 09/04/23 07:10 13:44 06:32 WBC 3.9 L RBC 2.66 L Hgb 8.3 L Hct 25.8 L MCV 97.0 MCH 31.2 MCHC 32.2 RDW 13.3 Plt Count 303 MPV 10.9 Immature Gran % (Auto) 0.5 H Neut % (Auto) 40.5 L Lymph % (Auto) 48.8 H Sherman % (Auto) 5.1 Eos % (Auto) 4.6 H Baso % (Auto) 0.5 Lymph # (Auto) 1.9 Sherman # (Auto) 0.2 Eos # (Auto) 0.2 Baso # (Auto) 0.0 Abs Immat Gran (auto) 0.02 Absolute Neuts (auto) 1.6 L Absolute Nucleated RBC 0.000 Nucleated RBC % (auto) 0.0 Smear Tech's Comments Hold Purple Top SEE NOTE PT INR APTT Hold Blue Top O2 Saturation ABG pH at Pt Temp ABG pCO2 at Pt Temp ABG pO2 at Pt Temp ABG HCO3 ABG Base Excess (Actual) VBG pH VBG pCO2 VBG pO2 VBG HCO3 VBG O2 Saturation VBG Base Excess Sodium Potassium Chloride Carbon Dioxide Anion Gap BUN Creatinine 0.70 0.79 Estim Creat Clear Calc 122.4 108.5 Estimated GFR > 60 > 60 POC Glucose Random Glucose Fasting Glucose Lactic Acid Lactic Acid F/U @ 2Hr Lactic Acid F/U @ 4Hr Calcium Phosphorus Magnesium Total Bilirubin Direct Bilirubin AST ALT Alkaline Phosphatase Total Creatine Kinase Troponin I High Sens Total Protein Albumin Lipase TSH Free T4 Hold Red Top Urine Color Urine Appearance Urine pH Ur Specific [place] Urine Protein Urine Glucose (UA) Urine Ketones Urine Blood Urine Nitrite Ur Leukocyte Esterase Urine RBC Urine WBC Ur Squamous Epith Cells Urine Bacteria Hyaline Casts Urine Test CSF Tube Number CSF Volume CSF Appearance CSF Color CSF WBC CSF RBC CSF Lymphocytes CSF Monocytes % CSF Appearance (b) CSF Glucose CSF Total Protein Vancomycin Trough Random Vancomycin 13.4 L Urine Opiates Screen Urine Fentanyl Screen Ur Barbiturates Screen Ur Phencyclidine Scrn Ur Amphetamines Screen U Benzodiazepines Scrn Urine Cocaine Screen U Marijuana (THC) Screen Ethyl Alcohol Thyroglobulin Antibody Thyroid Peroxidase Ab Respiratory Panel Tate Adenovirus (Rapid PCR) B.pert (TEM-PCR) B.parapertussis DNA PCR C. pneumoniae DNA (PCR) Coronavirus OC43 (PCR) Coronavirus HKU1 (PCR) Coronavirus 229E (PCR) Coronavirus NL63 (PCR) Hepatitis C Ab (EIA) HIV 1&2 Ab/P24 Ag 4thGn Human Metapneumovir PCR Influenza A (RT-PCR) Influenza Type A (PCR) Influenza B (RT-PCR) Influenza Type B (PCR) M. pneumoniae (PCR) Parainfluenza 1 (PCR) Parainfluenza 2 (PCR) Parainfluenza 3 (PCR) Parainfluenza 4 (PCR) RSV (PCR) RSV RNA Qual (PCR) Entero/Rhino (PCR) SARS-CoV-2 RNA (RT-PCR) Blood Type Antibody Screen Crossmatch 09/04/23 09/05/23 09/05/23 14:34 06:17 08:10 WBC 4.9 RBC 2.33 L Hgb 7.1 L Hct 21.5 L MCV 92.3 MCH 30.5 MCHC 33.0 RDW 13.1 Plt Count 258 MPV 11.2 Immature Gran % (Auto) Neut % (Auto) Lymph % (Auto) Sherman % (Auto) Eos % (Auto) Baso % (Auto) Lymph # (Auto) [place] # (Auto) Eos # (Auto) Baso # (Auto) Abs Immat Gran (auto) Absolute Neuts (auto) Absolute Nucleated RBC 0.000 Nucleated RBC % (auto) 0.0 Smear Tech's Comments Hold Purple Top SEE NOTE PT INR APTT Hold Blue Top O2 Saturation ABG pH at Pt Temp ABG pCO2 at Pt Temp ABG pO2 at Pt Temp ABG HCO3 ABG Base Excess (Actual) VBG pH VBG pCO2 VBG pO2 VBG HCO3 VBG O2 Saturation VBG Base Excess Sodium 134 L Potassium 3.3 Chloride 104 Carbon Dioxide 21 L Anion Gap 12 BUN 9 Creatinine 0.73 0.70 Estim Creat Clear Calc 117.4 122.4 Estimated GFR > 60 > 60 POC Glucose Random Glucose 85 Fasting Glucose Lactic Acid Lactic Acid F/U @ 2Hr Lactic Acid F/U @ 4Hr Calcium 8.6 Phosphorus Magnesium Total Bilirubin Direct Bilirubin AST ALT Alkaline Phosphatase Total Creatine Kinase Troponin I High Sens Total Protein Albumin Lipase TSH Free T4 Hold Red Top Urine Color Urine Appearance Urine pH Ur Specific [place] Urine Protein Urine Glucose (UA) Urine Ketones Urine Blood Urine Nitrite Ur Leukocyte Esterase Urine RBC Urine WBC Ur Squamous Epith Cells Urine Bacteria Hyaline Casts Urine Test CSF Tube Number CSF Volume CSF Appearance CSF Color CSF WBC CSF RBC CSF Lymphocytes CSF Monocytes % CSF Appearance (b) CSF Glucose CSF Total Protein Vancomycin Trough Random Vancomycin 15.1 Urine Opiates Screen Urine Fentanyl Screen Ur Barbiturates Screen Ur Phencyclidine Scrn Ur Amphetamines Screen U Benzodiazepines Scrn Urine Cocaine Screen U Marijuana (THC) Screen Ethyl Alcohol Thyroglobulin Antibody Thyroid Peroxidase Ab Respiratory Panel [place] Adenovirus (Rapid PCR) B.pert (TEM-PCR) B.parapertussis DNA PCR C. pneumoniae DNA (PCR) Coronavirus OC43 (PCR) Coronavirus HKU1 (PCR) Coronavirus 229E (PCR) Coronavirus NL63 (PCR) Hepatitis C Ab (EIA) HIV 1&2 Ab/P24 Ag 4thGn Nonreactive Human Metapneumovir PCR Influenza A (RT-PCR) Influenza Type A (PCR) Influenza B (RT-PCR) Influenza Type B (PCR) M. pneumoniae (PCR) Parainfluenza 1 (PCR) Parainfluenza 2 (PCR) Parainfluenza 3 (PCR) Parainfluenza 4 (PCR) RSV (PCR) RSV RNA Qual (PCR) Entero/Rhino (PCR) SARS-CoV-2 RNA (RT-PCR) Blood Type Antibody Screen Crossmatch 09/05/23 09/06/23 09/07/23 12:58 05:44 11:49 WBC 7.7 RBC 3.26 L D Hgb 9.2 L D 10.1 L Hct 27.4 L D 29.6 L MCV 90.8 MCH 31.0 MCHC 34.1 RDW 13.8 Plt Count 294 MPV 11.5 Immature Gran % (Auto) 0.4 Neut % (Auto) 68.1 Lymph % (Auto) 18.4 L [place] % (Auto) 8.4 Eos % (Auto) 4.3 H Baso % (Auto) 0.4 Lymph # (Auto) 1.4 Sherman # (Auto) 0.7 Eos # (Auto) 0.3 Baso # (Auto) 0.0 Abs Immat Gran (auto) 0.03 Absolute Neuts (auto) 5.3 Absolute Nucleated RBC 0.000 Nucleated RBC % (auto) 0.0 Smear Tech's Comments Hold Purple Top PT INR APTT Hold Blue Top O2 Saturation ABG pH at Pt Temp ABG pCO2 at Pt Temp ABG pO2 at Pt Temp ABG HCO3 ABG Base Excess (Actual) VBG pH VBG pCO2 VBG pO2 VBG HCO3 VBG O2 Saturation VBG Base Excess Sodium 135 Potassium 3.6 Chloride 102 Carbon Dioxide 23 Anion Gap 14 BUN 8 L Creatinine 0.74 0.72 Estim Creat Clear Calc 115.8 119.0 Estimated GFR > 60 > 60 POC Glucose Random Glucose 114 Fasting Glucose Lactic Acid Lactic Acid F/U @ 2Hr Lactic Acid F/U @ 4Hr Calcium 8.7 Phosphorus Magnesium Total Bilirubin Direct Bilirubin AST ALT Alkaline Phosphatase Total Creatine Kinase Troponin I High Sens Total Protein Albumin Lipase TSH Free T4 Hold Red Top Urine Color Urine Appearance Urine pH Ur Specific [place] Urine Protein Urine Glucose (UA) Urine Ketones Urine Blood Urine Nitrite Ur Leukocyte Esterase Urine RBC Urine WBC Ur Squamous Epith Cells Urine Bacteria Hyaline Casts Urine Test CSF Tube Number CSF Volume CSF Appearance CSF Color CSF WBC CSF RBC CSF Lymphocytes CSF Monocytes % CSF Appearance (b) CSF Glucose CSF Total Protein Vancomycin Trough Random Vancomycin Urine Opiates Screen Urine Fentanyl Screen Ur Barbiturates Screen Ur Phencyclidine Scrn Ur Amphetamines Screen U Benzodiazepines Scrn Urine Cocaine Screen U Marijuana (THC) Screen Ethyl Alcohol Thyroglobulin Antibody Thyroid Peroxidase Ab Respiratory Panel [place] Adenovirus (Rapid PCR) B.pert (TEM-PCR) B.parapertussis DNA PCR C. pneumoniae DNA (PCR) Coronavirus OC43 (PCR) Coronavirus HKU1 (PCR) Coronavirus 229E (PCR) Coronavirus NL63 (PCR) Hepatitis C Ab (EIA) HIV 1&2 Ab/P24 Ag 4thGn Human Metapneumovir PCR Influenza A (RT-PCR) Influenza Type A (PCR) Influenza B (RT-PCR) Influenza Type B (PCR) M. pneumoniae (PCR) Parainfluenza 1 (PCR) Parainfluenza 2 (PCR) Parainfluenza 3 (PCR) Parainfluenza 4 (PCR) RSV (PCR) RSV RNA Qual (PCR) Entero/Rhino (PCR) SARS-CoV-2 RNA (RT-PCR) Blood Type B Positive Antibody Screen NEGATIVE Crossmatch See Detail Airway Mallampati Class: II TM Dist: >3cm Neck ROM: Full Heart: RRR Lungs: cTA Assessment and Plan Assessment Anesthesia Assessment: Anesthesia Plan Discussed and Chart Reviewed Final Anesthetic Review Family History of Problems with Anesthesia: No History of Problems with Anesthesia: No NPO: Yes ASA Class: III Final Preanesthetic Review: No Changes in Pt Med Stat, Meds/Allgs Chart Reviewed, Consent Obtained/Reviewed and Anes Risks/Benef Reviewed Patient Risk: Intermediate Procedure Risk: Low Anesthetic Plan Anesthetic Plan: GA and MAC: Disposition: Standard PACU
--- NOTE | 2023-09-08 14:30 | PC.NURSE ---
clear lungs. generalized body rash states shes had it for a few days. right ac iv dry and intact and patient. picked up patient from [facility] and was weak. [facility] patients bed from admission to put patient in.
--- NOTE | 2023-09-08 14:30 | MHC.SHP ---
Pre-Procedural Eval Section A Date of Service: 09/08/23 The patient is an INPATIENT: Yes Changes since office visit: No Cold of Flu in the past 2 weeks, No New Medical Problems, No Changes in Medication and No Patient answered all questions The History & Physical has been completed within 30 days and I have reviewed it.: Yes Section B Chief Complaint: weakness Allergies: Allergies Allergy/AdvReac Type Severity Reaction Status Date / Time No Known Allergies Allergy Verified 04/24/23 13:48 Plan I have reviewed the history and physical and performed a pertinent physical examination on my patient. No changes have occurred unless specified. Time Spent With Patient Time: Total time managing care of this patient today ____ minutes.
--- NOTE | 2023-09-08 15:23 | MHC.CM.PN ---
EMR reviewed and per MD rounds, pt is not medically cleared for D/C today. CM will continue to follow.
[2023-09-08] MEDS: HYDROmorphone HCl 0.5 MG/0.5 ML SYRINGE IVPUSH (15:35)
[2023-09-08] MEDS: Acetaminophen 1,000 MG/100 ML PIGGYBACK 400 MG IV (15:36)
--- NOTE | 2023-09-08 16:31 | P.PNID_ITS ---
Subjective Subjective Date of Service: 09/08/23 Critical Care Time (minutes): 15 Comment: patient complains of itchy skin Objective Data Labs 09/07/23 11:49 09/07/23 11:49 Microbiology Microbiology Results: Microbiology 09/07/23 13:24 Blood - Venous Blood Culture - Preliminary No growth after 24 hours. 09/07/23 13:24 Blood - Venous Blood Culture - Preliminary No growth after 24 hours. 09/01/23 08:40 Blood - Venous Blood Culture - Final No growth after 5 days. 09/01/23 08:40 Blood - Venous Blood Culture - Final No growth after 5 days. 09/03/23 20:38 Blood - Venous Blood Culture - Preliminary No growth after 48 hours. 09/03/23 20:38 Blood - Venous Blood Culture - Preliminary No growth after 48 hours. 08/30/23 14:41 Blood - Venous Blood Culture - Final No growth after 5 days. 08/30/23 14:41 Blood - Venous Blood Culture - Final No growth after 5 days. 09/01/23 Unknown Urine clean catch - Urine armas top Urine Culture - Final No growth. 08/25/23 Unknown Arm Left Gram Stain - Final 08/25/23 Unknown Arm Left Routine Culture - Final No growth after 2 days 08/16/23 07:47 Blood - Venous Blood Culture - Final No growth after 5 days. 08/16/23 07:22 Blood - Venous Blood Culture - Final No growth after 5 days. 08/17/23 05:25 Arm Gram Stain - Final 08/17/23 05:25 Arm Routine Culture - Final No growth. 08/16/23 08:25 Cerebrospinal Fluid Gram Stain - Final 08/16/23 08:25 Cerebrospinal Fluid CSF Examination - Final 08/16/23 08:25 Cerebrospinal Fluid Fluid Description - Final 08/16/23 08:25 Cerebrospinal Fluid CSF Culture - Final No growth after 3 days. Physical Exam 2 Vital Signs: Vital Signs: Last Vital Signs Temp 97.6 F 09/08/23 16:10 Pulse 71 09/08/23 16:10 Resp 18 09/08/23 16:10 BP 101/60 09/08/23 16:10 Pulse Ox 96 09/08/23 16:10 O2 Del Method Room Air 09/08/23 16:10 O2 Flow Rate 6 09/08/23 15:25 FiO2 35 08/19/23 07:58 BMI result Body Mass Index 29.3 Const: General: cooperative HEENT: Head: Yes normal to inspection Mouth: Normal oral and palatal mucosa present Resp: Effort & Inspection: normal respiratory effort Cardio: Rate: regular rate Rhythm: regular rhythm GI: Inspection: Yes normal to inspection Skin: Other: macuolopapular rash Assessment and Plan Assessment and plan (1) Rash: Problem details: She has redness and rash maybe due to all antibiotics, Doxycycline on now and multiple previous antibiotics Status: Acute Assessment and Plan: Hold antibiotics for now Time Spent With Patient Time: Total time managing care of this patient today ____ minutes.
[2023-09-08] MEDS: Hydrocortisone 1 % Cream 28.35 GM TUBE 1 APPL TOPICAL (17:21)
[2023-09-08] MEDS: LORazepam 0.5 MG TABLET PO (21:04)
[2023-09-09] VITALS (10 sets, daily range): BP systolic 92–133; BP diastolic 6–62; PULSE 74–94; RESP 18–20; TEMP 35.9–38.2; O2SAT 93–100
[2023-09-09] MEDS: HYDROmorphone HCl 2 MG TABLET 3 MG PO ×4 (01:58→21:00)
[2023-09-09] MEDS: Morphine Sulfate ER 15 MG TABLET.ER PO ×2 (05:27→21:01)
[2023-09-09] MEDS: diphenhydrAMINE HCL 25 MG CAPSULE PO ×3 (05:42→21:01)
[2023-09-09 07:04] LABS: MANUAL DIFF FLAG NO
[2023-09-09 07:08] LABS: Basophils Percent Auto 0.5 % (0-2); Eosinophils Absolute Auto 1.2 X10*3/uL (0.0-0.4); Eosinophils Percent Auto 13.7 % (0-4); Hematocrit 28.5 % (37.0-47.0); Hemoglobin 9.4 g/dl (12.0-16.0); Imm Gran Abs Auto 0.03 X10*3/uL (0.00-0.03); Imm Gran Pct Auto 0.3 % (0.0-0.4); Lymphocytes Absolute Auto 2.5 X10*3/uL (1.2-4.9); Lymphocytes Percent Auto 29.4 % (20-40); Mean Corpuscular Hemoglobin 30.5 pg (27.0-33.0); Mean Corpuscular Volume 92.5 fL (80.0-98.0); Mean Platelet Volume 11.8 fL (9.4-12.3); Monocytes Absolute Auto 0.6 X10*3/uL (0.1-1.2); Monocytes Percent Auto 6.8 % (2-11); Neutrophils Absolute Auto 4.3 x10*3/uL (2.0-8.3); Neutrophils Percent Auto 49.3 % (45-73); Platelet Count 336 X10*3/uL (160-400); Red Blood Count 3.08 X10*6/uL (4.20-5.50); Red Cell Distribution Width 13.9 % (11.0-16.0); White Blood Count 8.6 X10*3/uL (4.8-10.8)
--- NOTE | 2023-09-09 09:22 | HO.PM.IMPN ---
Subjective Subjective Date of Service: 09/09/23 Interval History: follow up for left arm compartment syndrome/infection still no feeling to left hand forearm Review of Systems Review of Systems: Yes all other systems are reviewed and are negative Constitutional Constitutional: Denies chills and Reports fever(s) Cardiovascular Cardiovascular: Denies chest pain, Denies palpitations and Denies dyspnea Respiratory Respiratory: Denies cough and Denies dyspnea Gastrointestinal Gastrointestinal: Denies abdominal pain, Denies nausea and Denies vomiting Genitourinary Genitourinary: Denies dysuria, Denies urinary incontinence and Denies urinary urgency Endocrine Endocrine: Denies palpitations Physical Exam Vital Signs: Vital Signs: Last Vital Signs Temp 100.8 F H 09/09/23 08:00 Pulse 94 09/09/23 08:00 Resp 18 09/09/23 08:00 BP 103/57 L 09/09/23 08:00 Pulse Ox 94 09/09/23 08:00 O2 Del Method Room Air 09/09/23 08:00 O2 Flow Rate 6 09/08/23 15:25 FiO2 35 08/19/23 07:58 BMI result Body Mass Index 29.3 Appearing in no acute distress lung sounds are clear to auscultation heart regular rate rhythm, clear S1, S2 positive bowel sounds, abdomen is soft, nontender neuro patient is alert x3, no focal deficits Wound vac to left forearm Objective Data Active Medications Acetaminophen (Acetaminophen 325 Mg Tablet) 650 mg PO Q4H PRN PRN Reason: fever or pain Last Admin: 09/08/23 04:59 Dose: 650 mg Documented By: JUSTIN Acetaminophen (Acetaminophen Supp 650 Mg Supp.Rect) 650 mg [place] Q4H PRN PRN Reason: Fever Carvedilol (Carvedilol 3.125 Mg Tablet) 3.125 mg PO BID [facility]; Protocol Last Admin: 09/08/23 21:01 Dose: 3.125 mg Documented By: COMFORT Diphenhydramine HCl (Diphenhydramine Hcl 25 Mg Capsule) 25 mg PO Q6H PRN PRN Reason: itching Last Admin: 09/09/23 05:42 Dose: 25 mg Documented By: COMFORT Docusate Sodium (Docusate Sodium 100 Mg Capsule) 100 mg PO BID [facility] Last Admin: 09/08/23 21:01 Dose: 100 mg Documented By: COMFORT Fentanyl (Fentanyl Citrate/Pf 100 Mcg/2 Ml Vial) 50 mcg IVPUSH Q5M PRN; Protocol PRN Reason: Pain, Severe (Pain Scale 7-10) Gabapentin (Gabapentin 100 Mg Capsule) 200 mg PO BID [facility] Last Admin: 09/08/23 21:01 Dose: 200 mg Documented By: COMFORT Hydrocortisone (Hydrocortisone 1 % Cream 28.35 Gm Tube) 1 appl TOPICAL DAILY [facility]; Protocol Last Admin: 09/08/23 17:21 Dose: 1 appl Documented By: VICTOR M Hydromorphone HCl (Hydromorphone Hcl 2 Mg/Ml Vial) 2 mg IVPUSH Q4H PRN; Protocol PRN Reason: severe pain Hydromorphone HCl (Hydromorphone Hcl 0.5 Mg/0.5 Ml Syringe) 0.5 mg IVPUSH Q5M PRN; Protocol PRN Reason: Pain, Severe (Pain Scale 7-10) Last Admin: 09/08/23 15:35 Dose: 0.5 mg Documented By: NGHIA Hydromorphone HCl (Hydromorphone Hcl 2 Mg Tablet) 3 mg PO Q4H [facility] Last Admin: 09/09/23 05:28 Dose: 3 mg Documented By: COMFORT Lactulose (Lactulose 20 Gm/30 Ml Solution) 20 gm PO TID [facility] Last Admin: 09/01/23 07:45 Dose: Not Given Documented By: YANNI Non-Admin Reason: diarrhea Lorazepam (Lorazepam 0.5 Mg Tablet) 0.5 mg PO Q8H PRN PRN Reason: Anxiety Last Admin: 09/08/23 21:04 Dose: 0.5 mg Documented By: COMFORT Morphine Sulfate (Morphine Sulfate Er 15 Mg Tablet.Er) 15 mg PO Q8H [facility] Last Admin: 09/09/23 05:27 Dose: 15 mg Documented By: COMFORT Sodium Chloride (0.9 % Sodium Chloride Flush 3 Ml Syringe) 3 ml IVFLUSH QSHIFT [facility] Last Admin: 09/08/23 21:06 Dose: 3 ml Documented By: COMFORT Labs 09/09/23 06:38 09/07/23 11:49 Labs: Laboratory Results - last 24 hr 09/09/23 06:38 MCV 92.5 MCH 30.5 MCHC 33.0 RDW 13.9 Plt Count 336 MPV 11.8 Immature Gran % (Auto) 0.3 Neut % (Auto) 49.3 Lymph % (Auto) 29.4 [place] % (Auto) 6.8 Eos % (Auto) 13.7 H Baso % (Auto) 0.5 Lymph # (Auto) 2.5 [place] # (Auto) 0.6 Eos # (Auto) 1.2 H Baso # (Auto) 0.0 Abs Immat Gran (auto) 0.03 Absolute Neuts (auto) 4.3 Absolute Nucleated RBC 0.000 Nucleated RBC % (auto) 0.0 Microbiology Microbiology Results: Microbiology 09/03/23 20:38 Blood Culture - Final Blood - Venous No growth after 5 days. 09/03/23 20:38 Blood Culture - Final Blood - Venous No growth after 5 days. 09/07/23 13:24 Blood Culture - Preliminary Blood - Venous No growth after 24 hours. 09/07/23 13:24 Blood Culture - Preliminary Blood - Venous No growth after 24 hours. Assessment and Plan (1) Peroneal neuropathy at knee: Status: Acute (2) Compartment syndrome of forearm: Status: Acute (3) Traumatic brachial plexopathy: Status: Acute Plan This is a 33 year old lady who presented with AMS from overdose developed left arm Compartment syndrome, rhabdo, aspiration, CMP requiring ICU admission and intubation with multiple surgeries to relieve the compartment, downgraded to the medical floor 08/21 now with ongoing intermittent fever. Compartment syndrome of left forearm s/p fasciotomy, multiple debridements ortho, vascular, wound team following, wound vac in place s/p IV vancomycin, and zosyn stopped due to likely cause of drug fever and leukopenia weaning narcotics, Benadryl for itching Fevers has had intermittent fevers throughout hospitalization TLC removed, UA/cx negative, CT scan of abdomen/pelvis negative 09/01, atelectasis on CT - encourage incentive spirometry, no leukocytosis, HIV negative, tagged WBC scan negative , repeat blood cultures from 09/07 neg after 24hrs LUE US, RLE negative for DVT zosyn and vanco stopped for concern of drug fever discussed with ortho ? caused from increase buildup of nectrotic tissue in between debridements Acute Normocytic anemia likely component of blood loss from multiple surgeries and acute illness s/p 3U RBCs 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 - likely secondary to prolonged compression Persistent left foot pain due to neuropathy, continue Neurontin neurology evaluation appreciated, will need fdc follow up seen by retail salesworker> Night splint for foot drop(secondary to peroneal neuropathy d/t prolonged compression) to keep in dorsiflexion outpatient EMG studies continue PT/OT inpatient New onset acute Cardiomyopathy Echo on 08/17 showed EF 20% repeat Echo per ICU showed improvement echo consistent with takotsubo cardiomyopathy per cardiology cardiology rec starting carvedilol and consider KENNETH-I if able to tolerate, so far bp has been soft rec repeat ECHO 4 weeks from initial echo - due around 09/14 Aspiration pneumonia completed course of IV Vanco and Meropenem Rhabdo toxic and mechanical secondary drug OD and prolonged downtime CPK [id number] on admission, trended down with IVF Elevated LFTs LFTs have normalized Acute hypokalemia resolved with replacement Constipation Laxatives prn; hold for diarrhea Drug abuse Addiction team following New onset seizure Neurology eval one time incident, no need to treat, no recurrent seizures noted DVT PPx- SCDs - due to ongoing interventions for left arm. has been up to chair daily attending - dr. Shah reason for continued hospitalization: ongoing surgical interventions, fever Time Spent With Patient Time: Total time managing care of this patient today ____ minutes. Quality Stroke Does the patient have a stroke diagnosis?: No VTE Prior VTE?: No VTE Risk Level:: Medical - moderate - high VTE Device Contraindication: N/A - Device Ordered VTE Drug Contraindication: Treatment Not Indicated
[2023-09-09] MEDS: Gabapentin 100 MG CAPSULE 200 MG PO ×2 (09:33→21:01)
[2023-09-09] MEDS: carvediloL 3.125 MG TABLET PO ×2 (09:33→21:01)
[2023-09-09] MEDS: Acetaminophen 325 MG TABLET 650 MG PO (09:33)
[2023-09-09] MEDS: 0.9 % Sodium Chloride Flush 3 ML SYRINGE IVFLUSH ×2 (09:33→16:37)
[2023-09-09] MEDS: Docusate Sodium 100 MG CAPSULE PO ×2 (09:33→21:01)
[2023-09-09] MEDS: HYDROmorphone HCl 2 MG/ML VIAL IVPUSH ×3 (09:34→19:44)
--- NOTE | 2023-09-09 15:53 | PM.PNORT ---
Subjective Subjective Date of Service: 09/09/23 Principal diagnosis: left brachial plexus neuropathy and compartment syndrome forearm Interval history: Left forearm pain managed Wound vac in place No overnight events Patient is resting comfortably in bed No additional complaints Physical Exam Vital Signs: Vital Signs: Last Vital Signs Temp 96.6 F L 09/09/23 15:47 Pulse 74 09/09/23 15:47 Resp 20 09/09/23 15:47 BP 92/56 L 09/09/23 15:47 Pulse Ox 97 09/09/23 15:47 O2 Del Method Room Air 09/09/23 15:47 O2 Flow Rate 6 09/08/23 15:25 FiO2 35 08/19/23 07:58 BMI result Body Mass Index 29.3 Extrem: Other: left forearm wound vac holding suction arm and forearm soft Procedures Date of Service Date of Service: 09/09/23 Progress Note: A&P Assessment and plan (1) Brachial plexopathy: Status: Acute (2) Compartment syndrome of forearm: Status: Acute Assessment and Plan: Stable with no motor function sensation improving over dorsum of hand but dense numbness over volar forearm Wound vac in place with appropriate suctioning Pain management Time Spent With Patient Time: Total time managing care of this patient today ____ minutes. Quality Stroke Does the patient have a stroke diagnosis?: No VTE Prior VTE?: No VTE Risk Level:: Medical - moderate - high VTE Device Contraindication: N/A - Device Ordered VTE Drug Contraindication: Treatment Not Indicated
[2023-09-09] MEDS: LORazepam 0.5 MG TABLET PO (17:44)
--- NOTE | 2023-09-09 18:59 | HO.POSTANES ---
Post Anesthesia Evaluation Post Anesthesia Evaluation Date of Service: 09/09/23 Vital Signs: Vital Signs Temp Pulse Resp BP Pulse Ox O2 Del Method 09/09/23 15:47 96.6 F L 74 20 92/56 L 97 Room Air 09/09/23 14:21 94 Room Air 09/09/23 12:58 96 Room Air 09/09/23 11:36 98.5 F 81 18 112/56 L 95 Room Air 09/09/23 08:00 100.8 F H 94 18 103/57 L 94 Room Air Anesthesia: General LMA Mental Status: Awake Pain Control: Satisfactory Nausea/Vomiting: None Hydration: Adequate Anesthesia-Related Issues: No Anes. Related Issues
[2023-09-10] VITALS (8 sets, daily range): BP systolic 109–123; BP diastolic 55–72; PULSE 77–90; RESP 18–20; TEMP 36.1–37.3; O2SAT 93–98
[2023-09-10] MEDS: HYDROmorphone HCl 2 MG TABLET 3 MG PO ×6 (01:00→20:36)
[2023-09-10] MEDS: Morphine Sulfate ER 15 MG TABLET.ER PO ×3 (04:59→20:37)
[2023-09-10 06:23] LABS: MANUAL DIFF FLAG NO
[2023-09-10 06:29] LABS: Basophils Percent Auto 0.4 % (0-2); Eosinophils Absolute Auto 0.8 X10*3/uL (0.0-0.4); Eosinophils Percent Auto 10.2 % (0-4); Hematocrit 27.9 % (37.0-47.0); Hemoglobin 9.2 g/dl (12.0-16.0); Imm Gran Abs Auto 0.04 X10*3/uL (0.00-0.03); Imm Gran Pct Auto 0.5 % (0.0-0.4); Lymphocytes Absolute Auto 3.3 X10*3/uL (1.2-4.9); Lymphocytes Percent Auto 41.8 % (20-40); Mean Corpuscular Volume 90.9 fL (80.0-98.0); Mean Platelet Volume 11.2 fL (9.4-12.3); Monocytes Absolute Auto 0.7 X10*3/uL (0.1-1.2); Monocytes Percent Auto 8.9 % (2-11); Neutrophils Percent Auto 38.2 % (45-73); Platelet Count 430 X10*3/uL (160-400); Red Blood Count 3.07 X10*6/uL (4.20-5.50); Red Cell Distribution Width 13.7 % (11.0-16.0); White Blood Count 7.8 X10*3/uL (4.8-10.8)
[2023-09-10 06:43] LABS: Anion Gap 14 (12-20); Blood Urea Nitrogen 8 mg/dL (9-16); Calcium 9.2 mg/dL (8.4-10.2); Carbon Dioxide 22 mmol/L (22-29); Chloride 102 mmol/L (96-108); Creatinine Clr Calc Pharmacy 133.9; Estimated Glomerular Filt Rate > 60; Glucose Random 93 mg/dL (60-115); Potassium 3.6 mmol/L (3.3-5.1); Sodium 134 mmol/L (135-145)
[2023-09-10] MEDS: carvediloL 3.125 MG TABLET PO ×2 (08:58→20:37)
[2023-09-10] MEDS: Docusate Sodium 100 MG CAPSULE PO ×2 (08:58→20:37)
[2023-09-10] MEDS: Gabapentin 100 MG CAPSULE 200 MG PO ×2 (08:58→20:36)
[2023-09-10] MEDS: diphenhydrAMINE HCL 25 MG CAPSULE PO ×2 (09:10→17:12)
[2023-09-10] MEDS: LORazepam 0.5 MG TABLET PO ×2 (09:10→20:36)
[2023-09-10] MEDS: 0.9 % Sodium Chloride Flush 3 ML SYRINGE IVFLUSH ×3 (09:10→20:37)
--- NOTE | 2023-09-10 10:17 | P.PNIM_ITS ---
Subjective Subjective Date of Service: 09/10/23 Interval History: follow up for left arm compartment syndrome/infection still no feeling to left hand forearm Review of Systems Review of Systems: Yes all other systems are reviewed and are negative Constitutional Constitutional: Denies chills and Reports fever(s) Cardiovascular Cardiovascular: Denies chest pain, Denies palpitations and Denies dyspnea Respiratory Respiratory: Denies cough and Denies dyspnea Gastrointestinal Gastrointestinal: Denies abdominal pain, Denies nausea and Denies vomiting Genitourinary Genitourinary: Denies dysuria, Denies urinary incontinence and Denies urinary urgency Endocrine Endocrine: Denies palpitations Physical Exam 2 Vital Signs: Vital Signs: Last Vital Signs Temp 97.3 F 09/10/23 07:04 Pulse 80 09/10/23 07:04 Resp 18 09/10/23 07:04 BP 123/66 09/10/23 07:04 Pulse Ox 93 09/10/23 07:04 O2 Del Method Room Air 09/10/23 07:04 O2 Flow Rate 6 09/08/23 15:25 FiO2 35 08/19/23 07:58 BMI result Body Mass Index 29.3 Objective Data Active Medications Acetaminophen (Acetaminophen 325 Mg Tablet) 650 mg PO Q4H PRN PRN Reason: fever or pain Last Admin: 09/09/23 09:33 Dose: 650 mg Documented By: RU Acetaminophen (Acetaminophen Supp 650 Mg Supp.Rect) [address] Q4H PRN PRN Reason: Fever Carvedilol (Carvedilol 3.125 Mg Tablet) 3.125 mg PO BID [facility]; Protocol Last Admin: 09/10/23 08:58 Dose: 3.125 mg Documented By: RU Diphenhydramine HCl (Diphenhydramine Hcl 25 Mg Capsule) 25 mg PO Q6H PRN PRN Reason: itching Last Admin: 09/10/23 09:10 Dose: 25 mg Documented By: RU Docusate Sodium (Docusate Sodium 100 Mg Capsule) 100 mg PO BID [facility] Last Admin: 09/10/23 08:58 Dose: 100 mg Documented By: RU Fentanyl (Fentanyl Citrate/Pf 100 Mcg/2 Ml Vial) 50 mcg IVPUSH Q5M PRN; Protocol PRN Reason: Pain, Severe (Pain Scale 7-10) Gabapentin (Gabapentin 100 Mg Capsule) 200 mg PO BID [facility] Last Admin: 09/10/23 08:58 Dose: 200 mg Documented By: RU Hydrocortisone (Hydrocortisone 1 % Cream 28.35 Gm Tube) 1 appl TOPICAL DAILY [facility]; Protocol Last Admin: 09/10/23 09:10 Dose: Not Given Documented By: RU Non-Admin Reason: Patient Refused Hydromorphone HCl (Hydromorphone Hcl 2 Mg/Ml Vial) 2 mg IVPUSH Q4H PRN; Protocol PRN Reason: severe pain Last Admin: 09/09/23 19:44 Dose: 2 mg Documented By: JANY Hydromorphone HCl (Hydromorphone Hcl 0.5 Mg/0.5 Ml Syringe) 0.5 mg IVPUSH Q5M PRN; Protocol PRN Reason: Pain, Severe (Pain Scale 7-10) Last Admin: 09/08/23 15:35 Dose: 0.5 mg Documented By: NGHIA Hydromorphone HCl (Hydromorphone Hcl 2 Mg Tablet) 3 mg PO Q4H [facility] Last Admin: 09/10/23 08:58 Dose: 3 mg Documented By: RU Lactulose (Lactulose 20 Gm/30 Ml Solution) 20 gm PO TID [facility] Last Admin: 09/01/23 07:45 Dose: Not Given Documented By: YANNI Non-Admin Reason: diarrhea Lorazepam (Lorazepam 0.5 Mg Tablet) 0.5 mg PO Q8H PRN PRN Reason: Anxiety Last Admin: 09/10/23 09:10 Dose: 0.5 mg Documented By: RU Morphine Sulfate (Morphine Sulfate Er 15 Mg Tablet.Er) 15 mg PO Q8H [facility] Last Admin: 09/10/23 04:59 Dose: 15 mg Documented By: JANY Sodium Chloride (0.9 % Sodium Chloride Flush 3 Ml Syringe) 3 ml IVFLUSH QSHIFT [facility] Last Admin: 09/10/23 09:10 Dose: 3 ml Documented By: RU Labs 09/10/23 06:18 09/10/23 06:18 Labs: Laboratory Results - last 24 hr 09/10/23 06:18 MCV 90.9 MCH 30.0 MCHC 33.0 RDW 13.7 Plt Count 430 H D MPV 11.2 Immature Gran % (Auto) 0.5 H Neut % (Auto) 38.2 L Lymph % (Auto) 41.8 H [place] % (Auto) 8.9 Eos % (Auto) 10.2 H Baso % (Auto) 0.4 Lymph # (Auto) 3.3 [place] # (Auto) 0.7 Eos # (Auto) 0.8 H Baso # (Auto) 0.0 Abs Immat Gran (auto) 0.04 H Absolute Neuts (auto) 3.0 Absolute Nucleated RBC 0.000 Nucleated RBC % (auto) 0.0 Anion Gap 14 Estim Creat Clear Calc 133.9 Estimated GFR > 60 Random Glucose 93 Calcium 9.2 Microbiology Microbiology Results: Microbiology 09/07/23 13:24 Blood Culture - Preliminary Blood - Venous No growth after 48 hours. 09/07/23 13:24 Blood Culture - Preliminary Blood - Venous No growth after 48 hours. Assessment and Plan (1) Peroneal neuropathy at knee: Status: Acute (2) Compartment syndrome of forearm: Status: Acute (3) Traumatic brachial plexopathy: Status: Acute Plan This is a 33 year old lady who presented with AMS from overdose developed left arm Compartment syndrome, rhabdo, aspiration, CMP requiring ICU admission and intubation with multiple surgeries to relieve the compartment, downgraded to the medical floor 08/21 now with ongoing intermittent fever. Compartment syndrome of left forearm s/p fasciotomy, multiple debridements ortho, vascular, wound team following, wound vac in place s/p IV vancomycin, and zosyn stopped due to likely cause of drug fever and leukopenia weaning narcotics, Benadryl for itching Fevers no fever overnight has had intermittent fevers throughout hospitalization TLC removed, UA/cx negative, CT scan of abdomen/pelvis negative 09/01, atelectasis on CT - encourage incentive spirometry, no leukocytosis, HIV negative, tagged WBC scan negative , repeat blood cultures from 09/07 neg after 24hrs LUE US, RLE negative for DVT zosyn and vanco stopped for concern of drug fever discussed with ortho ? caused from increase buildup of nectrotic tissue in between debridements Acute Normocytic anemia likely component of blood loss from multiple surgeries and acute illness s/p 3U RBCs 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 - likely secondary to prolonged compression Persistent left foot pain due to neuropathy, continue Neurontin neurology evaluation appreciated, will need intermediate manager follow up seen by manager parking> Night splint for foot drop(secondary to peroneal neuropathy d/t prolonged compression) to keep in dorsiflexion outpatient EMG studies continue PT/OT inpatient New onset acute Cardiomyopathy Echo on 08/17 showed EF 20% repeat Echo per ICU showed improvement echo consistent with takotsubo cardiomyopathy per cardiology cardiology rec starting carvedilol and consider KENNETH-I if able to tolerate, so far bp has been soft rec repeat ECHO 4 weeks from initial echo - due around 09/14 Aspiration pneumonia completed course of IV Vanco and Meropenem Rhabdo toxic and mechanical secondary drug OD and prolonged downtime CPK 35,[id number] on admission, trended down with IVF Elevated LFTs LFTs have normalized Acute hypokalemia resolved with replacement Constipation Laxatives prn; hold for diarrhea Drug abuse Addiction team following New onset seizure Neurology eval one time incident, no need to treat, no recurrent seizures noted DVT PPx- SCDs - due to ongoing interventions for left arm. has been up to chair daily attending - dr. Shah reason for continued hospitalization: ongoing surgical interventions, fever Time Spent With Patient Time: Total time managing care of this patient today ____ minutes. Quality Stroke Does the patient have a stroke diagnosis?: No VTE Prior VTE?: No VTE Risk Level:: Medical - moderate - high VTE Device Contraindication: N/A - Device Ordered VTE Drug Contraindication: Treatment Not Indicated
[2023-09-11] VITALS (8 sets, daily range): BP systolic 113–120; BP diastolic 57–78; PULSE 76–92; RESP 18; TEMP 36.1–37.1; O2SAT 95–98
[2023-09-11] MEDS: HYDROmorphone HCl 2 MG TABLET 3 MG PO ×5 (00:52→20:28)
--- NOTE | 2023-09-11 04:20 | PC.NURSE ---
0400 pt taken off tele monitoring per MD. Been NSR all the time.
[2023-09-11] MEDS: Morphine Sulfate ER 15 MG TABLET.ER PO ×3 (05:04→20:28)
--- NOTE | 2023-09-11 09:13 | P.PNIM_ITS ---
Subjective Subjective Date of Service: 09/11/23 Interval History: follow up for left arm compartment syndrome/infection still no feeling to left hand forearm Review of Systems Review of Systems: Yes all other systems are reviewed and are negative Constitutional Constitutional: Denies chills and Reports fever(s) Cardiovascular Cardiovascular: Denies chest pain, Denies palpitations and Denies dyspnea Respiratory Respiratory: Denies cough and Denies dyspnea Gastrointestinal Gastrointestinal: Denies abdominal pain, Denies nausea and Denies vomiting Genitourinary Genitourinary: Denies dysuria, Denies urinary incontinence and Denies urinary urgency Endocrine Endocrine: Denies palpitations Physical Exam 2 Vital Signs: Vital Signs: Last Vital Signs Temp 97.0 F 09/11/23 07:46 Pulse 76 09/11/23 07:46 Resp 18 09/11/23 07:46 BP 115/64 09/11/23 07:46 Pulse Ox 95 09/11/23 07:46 O2 Del Method Room Air 09/11/23 07:46 O2 Flow Rate 6 09/08/23 15:25 FiO2 35 08/19/23 07:58 BMI result Body Mass Index 29.3 Appearing in no acute distress lung sounds are clear to auscultation heart regular rate rhythm, clear S1, S2 positive bowel sounds, abdomen is soft, nontender neuro patient is alert x3, no focal deficits wound vac to left forearm, surgical incision intact Objective Data Active Medications Acetaminophen (Acetaminophen 325 Mg Tablet) 650 mg PO Q4H PRN PRN Reason: fever or pain Last Admin: 09/09/23 09:33 Dose: 650 mg Documented By: RU Acetaminophen (Acetaminophen Supp 650 Mg Supp.Rect) 650 mg [place] Q4H PRN PRN Reason: Fever Carvedilol (Carvedilol 3.125 Mg Tablet) 3.125 mg PO BID [facility]; Protocol Last Admin: 09/10/23 20:37 Dose: 3.125 mg Documented By: JANY Diphenhydramine HCl (Diphenhydramine Hcl 25 Mg Capsule) 25 mg PO Q6H PRN PRN Reason: itching Last Admin: 09/10/23 17:12 Dose: 25 mg Documented By: RU Docusate Sodium (Docusate Sodium 100 Mg Capsule) 100 mg PO BID [facility] Last Admin: 09/10/23 20:37 Dose: 100 mg Documented By: JANY Fentanyl (Fentanyl Citrate/Pf 100 Mcg/2 Ml Vial) 50 mcg IVPUSH Q5M PRN; Protocol PRN Reason: Pain, Severe (Pain Scale 7-10) Gabapentin (Gabapentin 100 Mg Capsule) 200 mg PO BID [facility] Last Admin: 09/10/23 20:36 Dose: 200 mg Documented By: JANY Hydrocortisone (Hydrocortisone 1 % Cream 28.35 Gm Tube) 1 appl TOPICAL DAILY [facility]; Protocol Last Admin: 09/10/23 09:10 Dose: Not Given Documented By: RU Non-Admin Reason: Patient Refused Hydromorphone HCl (Hydromorphone Hcl 2 Mg/Ml Vial) 2 mg IVPUSH Q4H PRN; Protocol PRN Reason: severe pain Last Admin: 09/09/23 19:44 Dose: 2 mg Documented By: JANY Hydromorphone HCl (Hydromorphone Hcl 0.5 Mg/0.5 Ml Syringe) 0.5 mg IVPUSH Q5M PRN; Protocol PRN Reason: Pain, Severe (Pain Scale 7-10) Last Admin: 09/08/23 15:35 Dose: 0.5 mg Documented By: NGHIA Hydromorphone HCl (Hydromorphone Hcl 2 Mg Tablet) 3 mg PO Q4H [facility] Last Admin: 09/11/23 05:04 Dose: 3 mg Documented By: JANY Lactulose (Lactulose 20 Gm/30 Ml Solution) 20 gm PO TID [facility] Last Admin: 09/01/23 07:45 Dose: Not Given Documented By: YANNI Non-Admin Reason: diarrhea Lorazepam (Lorazepam 0.5 Mg Tablet) 0.5 mg PO Q8H PRN PRN Reason: Anxiety Last Admin: 09/10/23 20:36 Dose: 0.5 mg Documented By: JANY Morphine Sulfate (Morphine Sulfate Er 15 Mg Tablet.Er) 15 mg PO Q8H [facility] Last Admin: 09/11/23 05:04 Dose: 15 mg Documented By: JANY Sodium Chloride (0.9 % Sodium Chloride Flush 3 Ml Syringe) 3 ml IVFLUSH QSHIFT [facility] Last Admin: 09/10/23 20:37 Dose: 3 ml Documented By: JANY Labs 09/10/23 06:18 09/10/23 06:18 Assessment and Plan (1) Peroneal neuropathy at knee: Status: Acute (2) Compartment syndrome of forearm: Status: Acute (3) Traumatic brachial plexopathy: Status: Acute Plan This is a 33 year old lady who presented with AMS from overdose developed left arm Compartment syndrome, rhabdo, aspiration, CMP requiring ICU admission and intubation with multiple surgeries to relieve the compartment, downgraded to the medical floor 08/21 now with ongoing intermittent fever. Compartment syndrome of left forearm s/p fasciotomy, multiple debridements ortho, vascular, wound team following, wound vac in place s/p IV vancomycin, and zosyn stopped due to likely cause of drug fever and leukopenia weaning narcotics, Benadryl for itching possible or debridement in am, npo after midnight Fevers no fever since 09/09/23 in the morning has had intermittent fevers throughout hospitalization TLC removed, UA/cx negative, CT scan of abdomen/pelvis negative 09/01, atelectasis on CT - encourage incentive spirometry, no leukocytosis, HIV negative, tagged WBC scan negative , repeat blood cultures from 09/07 neg after 24hrs LUE US, RLE negative for DVT zosyn and vanco stopped for concern of drug fever discussed with ortho ? caused from increase buildup of nectrotic tissue in between debridements Acute Normocytic anemia likely component of blood loss from multiple surgeries and acute illness s/p 3U RBCs 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 - likely secondary to prolonged compression Persistent left foot pain due to neuropathy, continue Neurontin neurology evaluation appreciated, will need nursing home follow up seen by online advertising manager> Night splint for foot drop(secondary to peroneal neuropathy d/t prolonged compression) to keep in dorsiflexion outpatient EMG studies continue PT/OT inpatient New onset acute Cardiomyopathy Echo on 08/17 showed EF 20% repeat Echo per ICU showed improvement echo consistent with takotsubo cardiomyopathy per cardiology cardiology rec starting carvedilol and consider KENNETH-I if able to tolerate, so far bp has been soft rec repeat ECHO 4 weeks from initial echo - due around 09/14 Aspiration pneumonia completed course of IV Vanco and Meropenem Rhabdo toxic and mechanical secondary drug OD and prolonged downtime CPK [id number] on admission, trended down with IVF Elevated LFTs LFTs have normalized Acute hypokalemia resolved with replacement Constipation Laxatives prn; hold for diarrhea Drug abuse Addiction team following New onset seizure Neurology eval one time incident, no need to treat, no recurrent seizures noted DVT PPx- SCDs - due to ongoing interventions for left arm. has been up to chair daily attending - dr. Winston reason for continued hospitalization: ongoing surgical interventions, fever Time Spent With Patient Time: Total time managing care of this patient today ____ minutes. Quality Stroke Does the patient have a stroke diagnosis?: No VTE Prior VTE?: No VTE Risk Level:: Medical - moderate - high VTE Device Contraindication: N/A - Device Ordered VTE Drug Contraindication: Treatment Not Indicated
[2023-09-11] MEDS: Gabapentin 100 MG CAPSULE 200 MG PO ×2 (09:45→20:27)
[2023-09-11] MEDS: Docusate Sodium 100 MG CAPSULE PO ×2 (09:45→20:28)
[2023-09-11] MEDS: carvediloL 3.125 MG TABLET PO ×2 (09:47→20:27)
[2023-09-11] MEDS: 0.9 % Sodium Chloride Flush 3 ML SYRINGE IVFLUSH ×2 (09:49→17:45)
[2023-09-11] MEDS: diphenhydrAMINE HCL 25 MG CAPSULE PO ×2 (09:54→17:50)
[2023-09-11] MEDS: LORazepam 0.5 MG TABLET PO (09:54)
[2023-09-11] MEDS: Hydrocortisone 1 % Cream 28.35 GM TUBE 1 APPL TOPICAL (15:23)
--- NOTE | 2023-09-11 15:49 | MHC.CM.PN ---
EMR reviewed and per MD rounds, pt is not medically cleared for D/C, pt is anticipated to return to the OR tomorrow. CM will continue to follow.
[2023-09-12] VITALS (16 sets, daily range): BP systolic 103–137; BP diastolic 56–92; PULSE 74–82; RESP 15–20; TEMP 35.9–36.5; O2SAT 94–98
[2023-09-12] MEDS: diphenhydrAMINE HCL 25 MG CAPSULE PO ×3 (00:54→20:45)
[2023-09-12] MEDS: HYDROmorphone HCl 2 MG TABLET 3 MG PO ×6 (00:54→20:42)
[2023-09-12] MEDS: Morphine Sulfate ER 15 MG TABLET.ER PO ×3 (05:31→20:40)
[2023-09-12] MEDS: 0.9 % Sodium Chloride Flush 3 ML SYRINGE IVFLUSH ×4 (05:31→20:44)
[2023-09-12] MEDS: Gabapentin 100 MG CAPSULE 200 MG PO ×2 (08:42→20:43)
[2023-09-12] MEDS: carvediloL 3.125 MG TABLET PO ×2 (08:42→20:40)
[2023-09-12] MEDS: Docusate Sodium 100 MG CAPSULE PO ×2 (08:42→20:43)
--- NOTE | 2023-09-12 11:46 | P.PNIM_ITS ---
Subjective Subjective Date of Service: 09/12/23 Interval History: follow up for left arm compartment syndrome/infection still no feeling to left hand forearm Review of Systems Review of Systems: Yes all other systems are reviewed and are negative Constitutional Constitutional: Denies chills and Reports fever(s) Cardiovascular Cardiovascular: Denies chest pain, Denies palpitations and Denies dyspnea Respiratory Respiratory: Denies cough and Denies dyspnea Gastrointestinal Gastrointestinal: Denies abdominal pain, Denies nausea and Denies vomiting Genitourinary Genitourinary: Denies dysuria, Denies urinary incontinence and Denies urinary urgency Endocrine Endocrine: Denies palpitations Physical Exam 2 Vital Signs: Vital Signs: Last Vital Signs Temp 96.9 F 09/12/23 11:19 Pulse 76 09/12/23 11:19 Resp 20 09/12/23 11:19 BP 125/79 09/12/23 11:19 Pulse Ox 95 09/12/23 11:19 O2 Del Method Room Air 09/12/23 11:19 O2 Flow Rate 6 09/08/23 15:25 FiO2 35 08/19/23 07:58 BMI result Body Mass Index 29.3 Appearing in no acute distress lung sounds are clear to auscultation heart regular rate rhythm, clear S1, S2 positive bowel sounds, abdomen is soft, nontender neuro patient 0/5 strength to left forearm and hand suture intact, no drainage or signs of infection, wound vac in place Objective Data Active Medications Acetaminophen (Acetaminophen 325 Mg Tablet) 650 mg PO Q4H PRN PRN Reason: fever or pain Last Admin: 09/09/23 09:33 Dose: 650 mg Documented By: RU Acetaminophen (Acetaminophen Supp 650 Mg Supp.Rect) 650 mg TX Q4H PRN PRN Reason: Fever Carvedilol (Carvedilol 3.125 Mg Tablet) 3.125 mg PO BID [facility]; Protocol Last Admin: 09/12/23 08:42 Dose: 3.125 mg Documented By: CLAUDIA Diphenhydramine HCl (Diphenhydramine Hcl 25 Mg Capsule) 25 mg PO Q6H PRN PRN Reason: itching Last Admin: 09/12/23 00:54 Dose: 25 mg Documented By: BUDDY Docusate Sodium (Docusate Sodium 100 Mg Capsule) 100 mg PO BID [facility] Last Admin: 09/12/23 08:42 Dose: 100 mg Documented By: CLAUDIA Fentanyl (Fentanyl Citrate/Pf 100 Mcg/2 Ml Vial) 50 mcg IVPUSH Q5M PRN; Protocol PRN Reason: Pain, Severe (Pain Scale 7-10) Gabapentin (Gabapentin 100 Mg Capsule) 200 mg PO BID [facility] Last Admin: 09/12/23 08:42 Dose: 200 mg Documented By: CLAUDIA Hydrocortisone (Hydrocortisone 1 % Cream 28.35 Gm Tube) 1 appl TOPICAL DAILY [facility]; Protocol Last Admin: 09/12/23 08:44 Dose: Not Given Documented By: CLAUDIA Non-Admin Reason: Patient Refused Hydromorphone HCl (Hydromorphone Hcl 0.5 Mg/0.5 Ml Syringe) 0.5 mg IVPUSH Q5M PRN; Protocol PRN Reason: Pain, Severe (Pain Scale 7-10) Last Admin: 09/08/23 15:35 Dose: 0.5 mg Documented By: NGHIA Hydromorphone HCl (Hydromorphone Hcl 2 Mg Tablet) 3 mg PO Q4H [facility] Last Admin: 09/12/23 08:43 Dose: 3 mg Documented By: CLAUDIA Lactulose (Lactulose 20 Gm/30 Ml Solution) 20 gm PO TID [facility] Last Admin: 09/01/23 07:45 Dose: Not Given Documented By: YANNI Non-Admin Reason: diarrhea Morphine Sulfate (Morphine Sulfate Er 15 Mg Tablet.Er) 15 mg PO Q8H [facility] Last Admin: 09/12/23 05:31 Dose: 15 mg Documented By: BUDDY Sodium Chloride (0.9 % Sodium Chloride Flush 3 Ml Syringe) 3 ml IVFLUSH QSHIFT [facility] Last Admin: 09/12/23 08:43 Dose: 3 ml Documented By: CLAUDIA Labs 09/10/23 06:18 09/10/23 06:18 Assessment and Plan (1) Peroneal neuropathy at knee: Status: Acute (2) Compartment syndrome of forearm: Status: Acute (3) Traumatic brachial plexopathy: Status: Acute Plan This is a 33 year old lady who presented with AMS from overdose developed left arm Compartment syndrome, rhabdo, aspiration, CMP requiring ICU admission and intubation with multiple surgeries to relieve the compartment, downgraded to the medical floor 08/21 now with ongoing intermittent fever. Compartment syndrome of left forearm s/p fasciotomy, multiple debridements ortho, vascular, wound team following, wound vac in place s/p IV vancomycin, and zosyn stopped due to likely cause of drug fever and leukopenia weaning narcotics, Benadryl for itching debridement today Fevers no fever since 09/09/23 in the morning has had intermittent fevers throughout hospitalization TLC removed, UA/cx negative, CT scan of abdomen/pelvis negative 09/01, atelectasis on CT - encourage incentive spirometry, no leukocytosis, HIV negative, tagged WBC scan negative , repeat blood cultures from 09/07 neg after 24hrs LUE US, RLE negative for DVT zosyn and vanco stopped for concern of drug fever discussed with ortho ? caused from increase buildup of nectrotic tissue in between debridements Acute Normocytic anemia likely component of blood loss from multiple surgeries and acute illness s/p 3U RBCs 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 - likely secondary to prolonged compression Persistent left foot pain due to neuropathy, continue Neurontin neurology evaluation appreciated, will need correction follow up seen by advertising operations manager> Night splint for foot drop(secondary to peroneal neuropathy d/t prolonged compression) to keep in dorsiflexion outpatient EMG studies continue PT/OT inpatient New onset acute Cardiomyopathy Echo on 08/17 showed EF 20% repeat Echo per ICU showed improvement echo consistent with takotsubo cardiomyopathy per cardiology cardiology rec starting carvedilol and consider KENNETH-I if able to tolerate, so far bp has been soft rec repeat ECHO 4 weeks from initial echo - due around 09/14 Aspiration pneumonia completed course of IV Vanco and Meropenem Rhabdo toxic and mechanical secondary drug OD and prolonged downtime CPK [id number] on admission, trended down with IVF Elevated LFTs LFTs have normalized Acute hypokalemia resolved with replacement Constipation Laxatives prn; hold for diarrhea Drug abuse Addiction team following New onset seizure Neurology eval one time incident, no need to treat, no recurrent seizures noted DVT PPx- SCDs - due to ongoing interventions for left arm. has been up to chair daily attending - dr. Catrachito TAYLOR lives at home with family, plan to dc home when medically stable reason for continued hospitalization: ongoing surgical interventions, fever Time Spent With Patient Time: Total time managing care of this patient today ____ minutes. Quality Stroke Does the patient have a stroke diagnosis?: No VTE Prior VTE?: No VTE Risk Level:: Medical - moderate - high VTE Device Contraindication: N/A - Device Ordered VTE Drug Contraindication: Treatment Not Indicated
--- NOTE | 2023-09-12 14:09 | PC.NURSE ---
iv flushing with out difficulties pt aware careplan
--- NOTE | 2023-09-12 14:57 | HO.ANESPROP2 ---
HPI - Anesthesia Eval Consult details Narrative: 33 F for LUE I and D EF 22 % on formal ECHO , a subsequent POCUS by technology intern showed EF 40 % . Aspiration pneumonia was on IV antibiotics Also complains of left foot pain . 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 (Acute) Pneumonia involving left lung (Acute) Rhabdomyolysis (Acute) Troponin I above reference range (Acute) Acidosis, lactic (Acute) Acute renal failure (Acute) Fever (Acute) Altered mental status (Acute) Substance abuse (Acute) Upper respiratory tract infection (Acute) Flank pain (Acute) Dysuria (Acute) Wheezing (Acute) Respiratory infection (Acute) Cough (Acute) Past Medical History Medical History (Updated 09/08/23 @ 16:33 by Samantha Taylor MD) Rash Substance abuse Family History Family history of problems with anesthesia: No Surgical History History of Problems with Anesthesia: No Social History Social History Household Members: Family and Children Household Members Other:: Parents, siblings, son Housing: House Do you presently have visiting nurse or other home services: No Unable to assess alcohol history related to: Unable to respond Alcohol intake: current Alcohol intake frequency: 0-2 drinks per day Patient Tobacco Use Status: Current everyday Tobacco user Tobacco use type: Cigarette Use of substances other than those prescribed or required for medical reasons: Yes Substance Use Type: Heroin Substance Use Frequency: Occasionally Last Used Substance: Weeks (ago) Currently Displaying Signs/Symptoms of Drug Intoxication Withdrawal: No Have you been hit, kicked, punched, or otherwise hurt by someone within the past year? If so, by whom?: No Do you feel safe in your current relationship?: No Current Relationship Is there a partner from a previous relationship who is making you feel unsafe now?: No Are you made to feel afraid or neglected: No Are you DNR?: No Advance Directives: No Advance Directives Information Provided: No Advance Directives on File: No Do you have thoughts of harming others: None Do you have a plan to hurt others: No Plan Recently lost weight without trying: No How much weight loss: Not applicable Eating poorly because of decreased appetite: No Nutrition screen score: 0 Nutrition Risks: No Nutritional Risk Patient : No : No Poor oral hygiene: No Meds Allergies Allergy/AdvReac Type Severity Reaction Status Date / Time No Known Allergies Allergy Verified 04/24/23 13:48 Active Medications: Current Medications Acetaminophen (Acetaminophen 325 Mg Tablet) 650 mg PO Q4H PRN PRN Reason: fever or pain Last Admin: 09/09/23 09:33 Dose: 650 mg Acetaminophen (Acetaminophen Supp 650 Mg Supp.Rect) 650 mg TX Q4H PRN PRN Reason: Fever Carvedilol (Carvedilol 3.125 Mg Tablet) 3.125 mg PO BID COUNT INCLUDES THE [facility]; Protocol Last Admin: 09/12/23 08:42 Dose: 3.125 mg Diphenhydramine HCl (Diphenhydramine Hcl 25 Mg Capsule) 25 mg PO Q6H PRN PRN Reason: itching Last Admin: 09/12/23 11:48 Dose: 25 mg Docusate Sodium (Docusate Sodium 100 Mg Capsule) 100 mg PO BID COUNT INCLUDES THE [facility] Last Admin: 09/12/23 08:42 Dose: 100 mg Fentanyl (Fentanyl Citrate/Pf 100 Mcg/2 Ml Vial) 50 mcg IVPUSH Q5M PRN; Protocol PRN Reason: Pain, Severe (Pain Scale 7-10) Gabapentin (Gabapentin 100 Mg Capsule) 200 mg PO BID COUNT INCLUDES THE [facility] Last Admin: 09/12/23 08:42 Dose: 200 mg Hydrocortisone (Hydrocortisone 1 % Cream 28.35 Gm Tube) 1 appl TOPICAL DAILY COUNT INCLUDES THE [facility]; Protocol Last Admin: 09/12/23 08:44 Dose: Not Given Hydromorphone HCl (Hydromorphone Hcl 0.5 Mg/0.5 Ml Syringe) 0.5 mg IVPUSH Q5M PRN; Protocol PRN Reason: Pain, Severe (Pain Scale 7-10) Last Admin: 09/08/23 15:35 Dose: 0.5 mg Hydromorphone HCl (Hydromorphone Hcl 2 Mg Tablet) 3 mg PO Q4H COUNT INCLUDES THE [facility] Last Admin: 09/12/23 12:10 Dose: 3 mg Lactulose (Lactulose 20 Gm/30 Ml Solution) 20 gm PO TID COUNT INCLUDES THE [facility] Last Admin: 09/01/23 07:45 Dose: Not Given Lidocaine (Lidocaine 4 % Patch Adh..Patch) 1 patch TRANSDERMA DAILY COUNT INCLUDES THE [facility]; Protocol Morphine Sulfate (Morphine Sulfate Er 15 Mg Tablet.Er) 15 mg PO Q8H COUNT INCLUDES THE [facility] Last Admin: 09/12/23 12:10 Dose: 15 mg Sodium Chloride (0.9 % Sodium Chloride Flush 3 Ml Syringe) 3 ml IVFLUSH QSHIFT COUNT INCLUDES THE [facility] Last Admin: 09/12/23 08:43 Dose: 3 ml Home Medications Medication Instructions Recorded Confirmed Last Taken Type No Known Home Meds 08/16/23 08/16/23 Unknown History Exam Exam Date and Time: September 12, 2023 1457 Height,Weight and Vital Signs: Height 5 ft 6 in Weight 82.3 kg Last Vital Signs Temp 97 F 09/12/23 14:11 Pulse 79 09/12/23 14:11 Resp 20 09/12/23 14:11 BP 137/92 H 09/12/23 14:11 Pulse Ox 96 09/12/23 14:11 O2 Del Method Room Air 09/12/23 14:11 O2 Flow Rate 6 09/08/23 15:25 FiO2 35 08/19/23 07:58 Pertinent Lab Results Pertinent Lab Results: Laboratory Tests 08/16/23 08/16/23 08/16/23 07:04 07:11 08:22 WBC 13.7 H RBC 5.02 D Hgb 16.0 D Hct 48.3 H D MCV 96.2 MCH 31.9 MCHC 33.1 RDW 13.0 Plt Count 373 D MPV 10.7 Immature Gran % (Auto) 1.4 H Neut % (Auto) 76.3 H Lymph % (Auto) 15.0 L Richardson % (Auto) 7.1 Eos % (Auto) 0.0 Baso % (Auto) 0.2 Lymph # (Auto) 2.1 Richardson # (Auto) 1.0 Eos # (Auto) 0.0 Baso # (Auto) 0.0 Abs Immat Gran (auto) 0.19 H Absolute Neuts (auto) 10.5 H Absolute Nucleated RBC 0.020 H Nucleated RBC % (auto) 0.1 Smear Tech's Comments Hold Purple Top SEE NOTE PT INR APTT Hold Blue Top SEE NOTE O2 Saturation 99.0 ABG pH at Pt Temp 7.37 ABG pCO2 at Pt Temp 23 L ABG pO2 at Pt Temp 199 H ABG HCO3 14 L ABG Base Excess (Actual) -9.1 VBG pH VBG pCO2 VBG pO2 VBG HCO3 VBG O2 Saturation VBG Base Excess Sodium 139 Potassium 5.7 H D Chloride 106 Carbon Dioxide 18 L Anion Gap 21 H BUN 30 H Creatinine 2.13 H Estim Creat Clear Calc 40.0 Estimated GFR 27 POC Glucose 123 H Random Glucose 119 H Fasting Glucose Lactic Acid 4.3 H* Lactic Acid F/U @ 2Hr Lactic Acid F/U @ 4Hr Calcium 9.6 Phosphorus Magnesium Total Bilirubin 0.4 Direct Bilirubin 0.2 AST 344 H ALT 114 H Alkaline Phosphatase 75 Total Creatine Kinase 15015 H Troponin I High Sens 346.8 H* Total Protein 8.2 H Albumin 4.8 Lipase 24 TSH Free T4 Hold Red Top Urine Color Urine Appearance Urine pH Ur Specific [place] Urine Protein Urine Glucose (UA) Urine Ketones Urine Blood Urine Nitrite Ur Leukocyte Esterase Urine RBC Urine WBC Ur Squamous Epith Cells Urine Bacteria Hyaline Casts Urine Test CSF Tube Number CSF Volume CSF Appearance CSF Color CSF WBC CSF RBC CSF Lymphocytes CSF Monocytes % CSF Appearance (b) CSF Glucose CSF Total Protein Vancomycin Trough Random Vancomycin Urine Opiates Screen Urine Fentanyl Screen Ur Barbiturates Screen Ur Phencyclidine Scrn Ur Amphetamines Screen U Benzodiazepines Scrn Urine Cocaine Screen U Marijuana (THC) Screen Ethyl Alcohol < 10 Thyroglobulin Antibody Thyroid Peroxidase Ab Respiratory Panel [place] Adenovirus (Rapid PCR) B.pert (TEM-PCR) B.parapertussis DNA PCR C. pneumoniae DNA (PCR) Coronavirus OC43 (PCR) Coronavirus HKU1 (PCR) Coronavirus 229E (PCR) Coronavirus NL63 (PCR) Hepatitis C Ab (EIA) HIV 1&2 Ab/P24 Ag 4thGn Human Metapneumovir PCR Influenza A (RT-PCR) Influenza Type A (PCR) Influenza B (RT-PCR) Influenza Type B (PCR) M. pneumoniae (PCR) Parainfluenza 1 (PCR) Parainfluenza 2 (PCR) Parainfluenza 3 (PCR) Parainfluenza 4 (PCR) RSV (PCR) RSV RNA Qual (PCR) Entero/Rhino (PCR) SARS-CoV-2 RNA (RT-PCR) Blood Type Antibody Screen Crossmatch 08/16/23 08/16/23 08/16/23 08:25 08:25 08:25 WBC RBC Hgb Hct MCV MCH MCHC RDW Plt Count MPV Immature Gran % (Auto) Neut % (Auto) Lymph % (Auto) Richardson % (Auto) Eos % (Auto) Baso % (Auto) Lymph # (Auto) Richardson # (Auto) Eos # (Auto) Baso # (Auto) Abs Immat Gran (auto) Absolute Neuts (auto) Absolute Nucleated RBC Nucleated RBC % (auto) Smear Tech's Comments Hold Purple Top PT INR APTT Hold Blue Top O2 Saturation ABG pH at Pt Temp ABG pCO2 at Pt Temp ABG pO2 at Pt Temp ABG HCO3 ABG Base Excess (Actual) VBG pH VBG pCO2 VBG pO2 VBG HCO3 VBG O2 Saturation VBG Base Excess Sodium Potassium Chloride Carbon Dioxide Anion Gap BUN Creatinine Estim Creat Clear Calc Estimated GFR POC Glucose Random Glucose Fasting Glucose Lactic Acid Lactic Acid F/U @ 2Hr Lactic Acid F/U @ 4Hr Calcium Phosphorus Magnesium Total Bilirubin Direct Bilirubin AST ALT Alkaline Phosphatase Total Creatine Kinase Troponin I High Sens Total Protein Albumin Lipase TSH Free T4 Hold Red Top Urine Color Dark Yellow Urine Appearance Cloudy Urine pH 5.5 Ur Specific [place] 1.015 Urine Protein 100 (2+) H Urine Glucose (UA) 100 H Urine Ketones Trace Urine Blood Large (3+) H Urine Nitrite Negative Ur Leukocyte Esterase Trace H Urine RBC >20 H Urine WBC 0-5 Ur Squamous Epith Cells 0-2 Urine Bacteria None Seen Hyaline Casts 0-2 Urine Test CSF Tube Number Cancelled 1 4 CSF Volume CSF Appearance CSF Color CSF WBC CSF RBC CSF Lymphocytes CSF Monocytes % CSF Appearance (b) CSF Glucose CSF Total Protein Vancomycin Trough Random Vancomycin Urine Opiates Screen Urine Fentanyl Screen Ur Barbiturates Screen Ur Phencyclidine Scrn Ur Amphetamines Screen U Benzodiazepines Scrn Urine Cocaine Screen U Marijuana (THC) Screen Ethyl Alcohol Thyroglobulin Antibody Thyroid Peroxidase Ab Respiratory Panel [place] Adenovirus (Rapid PCR) B.pert (TEM-PCR) B.parapertussis DNA PCR C. pneumoniae DNA (PCR) Coronavirus OC43 (PCR) Coronavirus HKU1 (PCR) Coronavirus 229E (PCR) Coronavirus NL63 (PCR) Hepatitis C Ab (EIA) HIV 1&2 Ab/P24 Ag 4thGn Human Metapneumovir PCR Influenza A (RT-PCR) Influenza Type A (PCR) Influenza B (RT-PCR) Influenza Type B (PCR) M. pneumoniae (PCR) Parainfluenza 1 (PCR) Parainfluenza 2 (PCR) Parainfluenza 3 (PCR) Parainfluenza 4 (PCR) RSV (PCR) RSV RNA Qual (PCR) Entero/Rhino (PCR) SARS-CoV-2 RNA (RT-PCR) Blood Type Antibody Screen Crossmatch 08/16/23 08/16/23 08/16/23 08:25 08:25 08:25 WBC RBC Hgb Hct MCV MCH MCHC RDW Plt Count MPV Immature Gran % (Auto) Neut % (Auto) Lymph % (Auto) Richardson % (Auto) Eos % (Auto) Baso % (Auto) Lymph # (Auto) Richardson # (Auto) Eos # (Auto) Baso # (Auto) Abs Immat Gran (auto) Absolute Neuts (auto) Absolute Nucleated RBC Nucleated RBC % (auto) Smear Tech's Comments Hold Purple Top PT INR APTT Hold Blue Top O2 Saturation ABG pH at Pt Temp ABG pCO2 at Pt Temp ABG pO2 at Pt Temp ABG HCO3 ABG Base Excess (Actual) VBG pH VBG pCO2 VBG pO2 VBG HCO3 VBG O2 Saturation VBG Base Excess Sodium Potassium Chloride Carbon Dioxide Anion Gap BUN Creatinine Estim Creat Clear Calc Estimated GFR POC Glucose Random Glucose Fasting Glucose Lactic Acid Lactic Acid F/U @ 2Hr Lactic Acid F/U @ 4Hr Calcium Phosphorus Magnesium Total Bilirubin Direct Bilirubin AST ALT Alkaline Phosphatase Total Creatine Kinase Troponin I High Sens Total Protein Albumin Lipase TSH Free T4 Hold Red Top Urine Color Urine Appearance Urine pH Ur Specific [place] Urine Protein Urine Glucose (UA) Urine Ketones Urine Blood Urine Nitrite Ur Leukocyte Esterase Urine RBC Urine WBC Ur Squamous Epith Cells Urine Bacteria Hyaline Casts Urine Test CSF Tube Number 2 CSF Volume 1.0 1.0 CSF Appearance CLEAR CLEAR CSF Color COLORLESS CSF WBC CSF RBC CSF Lymphocytes CSF Monocytes % CSF Appearance (b) CSF Glucose CSF Total Protein Vancomycin Trough Random Vancomycin Urine Opiates Screen Urine Fentanyl Screen Ur Barbiturates Screen Ur Phencyclidine Scrn Ur Amphetamines Screen U Benzodiazepines Scrn Urine Cocaine Screen U Marijuana (THC) Screen Ethyl Alcohol Thyroglobulin Antibody Thyroid Peroxidase Ab Respiratory Panel [place] Adenovirus (Rapid PCR) B.pert (TEM-PCR) B.parapertussis DNA PCR C. pneumoniae DNA (PCR) Coronavirus OC43 (PCR) Coronavirus HKU1 (PCR) Coronavirus 229E (PCR) Coronavirus NL63 (PCR) Hepatitis C Ab (EIA) HIV 1&2 Ab/P24 Ag 4thGn Human Metapneumovir PCR Influenza A (RT-PCR) Influenza Type A (PCR) Influenza B (RT-PCR) Influenza Type B (PCR) M. pneumoniae (PCR) Parainfluenza 1 (PCR) Parainfluenza 2 (PCR) Parainfluenza 3 (PCR) Parainfluenza 4 (PCR) RSV (PCR) RSV RNA Qual (PCR) Entero/Rhino (PCR) SARS-CoV-2 RNA (RT-PCR) Blood Type Antibody Screen Crossmatch 08/16/23 08/16/23 08/16/23 08:25 08:25 08:25 WBC RBC Hgb Hct MCV MCH MCHC RDW Plt Count MPV Immature Gran % (Auto) Neut % (Auto) Lymph % (Auto) Richardson % (Auto) Eos % (Auto) Baso % (Auto) Lymph # (Auto) Richardson # (Auto) Eos # (Auto) Baso # (Auto) Abs Immat Gran (auto) Absolute Neuts (auto) Absolute Nucleated RBC Nucleated RBC % (auto) Smear Tech's Comments Hold Purple Top PT INR APTT Hold Blue Top O2 Saturation ABG pH at Pt Temp ABG pCO2 at Pt Temp ABG pO2 at Pt Temp ABG HCO3 ABG Base Excess (Actual) VBG pH VBG pCO2 VBG pO2 VBG HCO3 VBG O2 Saturation VBG Base Excess Sodium Potassium Chloride Carbon Dioxide Anion Gap BUN Creatinine Estim Creat Clear Calc Estimated GFR POC Glucose Random Glucose Fasting Glucose Lactic Acid Lactic Acid F/U @ 2Hr Lactic Acid F/U @ 4Hr Calcium Phosphorus Magnesium Total Bilirubin Direct Bilirubin AST ALT Alkaline Phosphatase Total Creatine Kinase Troponin I High Sens Total Protein Albumin Lipase TSH Free T4 Hold Red Top Urine Color Urine Appearance Urine pH Ur Specific [place] Urine Protein Urine Glucose (UA) Urine Ketones Urine Blood Urine Nitrite Ur Leukocyte Esterase Urine RBC Urine WBC Ur Squamous Epith Cells Urine Bacteria Hyaline Casts Urine Test CSF Tube Number CSF Volume CSF Appearance CSF Color COLORLESS CSF WBC 2 3 CSF RBC 22 14 CSF Lymphocytes 100 CSF Monocytes % CSF Appearance (b) CSF Glucose CSF Total Protein Vancomycin Trough Random Vancomycin Urine Opiates Screen Urine Fentanyl Screen Ur Barbiturates Screen Ur Phencyclidine Scrn Ur Amphetamines Screen U Benzodiazepines Scrn Urine Cocaine Screen U Marijuana (THC) Screen Ethyl Alcohol Thyroglobulin Antibody Thyroid Peroxidase Ab Respiratory Panel [place] Adenovirus (Rapid PCR) B.pert (TEM-PCR) B.parapertussis DNA PCR C. pneumoniae DNA (PCR) Coronavirus OC43 (PCR) Coronavirus HKU1 (PCR) Coronavirus 229E (PCR) Coronavirus NL63 (PCR) Hepatitis C Ab (EIA) HIV 1&2 Ab/P24 Ag 4thGn Human Metapneumovir PCR Influenza A (RT-PCR) Influenza Type A (PCR) Influenza B (RT-PCR) Influenza Type B (PCR) M. pneumoniae (PCR) Parainfluenza 1 (PCR) Parainfluenza 2 (PCR) Parainfluenza 3 (PCR) Parainfluenza 4 (PCR) RSV (PCR) RSV RNA Qual (PCR) Entero/Rhino (PCR) SARS-CoV-2 RNA (RT-PCR) Blood Type Antibody Screen Crossmatch 08/16/23 08/16/23 08/16/23 08:25 08:25 08:25 WBC RBC Hgb Hct MCV MCH MCHC RDW Plt Count MPV Immature Gran % (Auto) Neut % (Auto) Lymph % (Auto) Richardson % (Auto) Eos % (Auto) Baso % (Auto) Lymph # (Auto) Richardson # (Auto) Eos # (Auto) Baso # (Auto) Abs Immat Gran (auto) Absolute Neuts (auto) Absolute Nucleated RBC Nucleated RBC % (auto) Smear Tech's Comments Hold Purple Top PT INR APTT Hold Blue Top O2 Saturation ABG pH at Pt Temp ABG pCO2 at Pt Temp ABG pO2 at Pt Temp ABG HCO3 ABG Base Excess (Actual) VBG pH VBG pCO2 VBG pO2 VBG HCO3 VBG O2 Saturation VBG Base Excess Sodium Potassium Chloride Carbon Dioxide Anion Gap BUN Creatinine Estim Creat Clear Calc Estimated GFR POC Glucose Random Glucose Fasting Glucose Lactic Acid Lactic Acid F/U @ 2Hr Lactic Acid F/U @ 4Hr Calcium Phosphorus Magnesium Total Bilirubin Direct Bilirubin AST ALT Alkaline Phosphatase Total Creatine Kinase Troponin I High Sens Total Protein Albumin Lipase TSH Free T4 Hold Red Top Urine Color Urine Appearance Urine pH Ur Specific [place] Urine Protein Urine Glucose (UA) Urine Ketones Urine Blood Urine Nitrite Ur Leukocyte Esterase Urine RBC Urine WBC Ur Squamous Epith Cells Urine Bacteria Hyaline Casts Urine Test CSF Tube Number CSF Volume CSF Appearance CSF Color CSF WBC CSF RBC CSF Lymphocytes 83 CSF Monocytes % 17 CSF Appearance (b) Cancelled Clear, Colorless CSF Glucose Cancelled 96 CSF Total Protein 28.6 Vancomycin Trough Random Vancomycin Urine Opiates Screen POSITIVE H Urine Fentanyl Screen POSITIVE H Ur Barbiturates Screen Not Detected Ur Phencyclidine Scrn Not Detected Ur Amphetamines Screen Not Detected U Benzodiazepines Scrn POSITIVE H Urine Cocaine Screen POSITIVE H U Marijuana (THC) Screen POSITIVE H Ethyl Alcohol Thyroglobulin Antibody Thyroid Peroxidase Ab Respiratory Panel [place] Adenovirus (Rapid PCR) B.pert (TEM-PCR) B.parapertussis DNA PCR C. pneumoniae DNA (PCR) Coronavirus OC43 (PCR) Coronavirus HKU1 (PCR) Coronavirus 229E (PCR) Coronavirus NL63 (PCR) Hepatitis C Ab (EIA) HIV 1&2 Ab/P24 Ag 4thGn Human Metapneumovir PCR Influenza A (RT-PCR) Influenza Type A (PCR) Influenza B (RT-PCR) Influenza Type B (PCR) M. pneumoniae (PCR) Parainfluenza 1 (PCR) Parainfluenza 2 (PCR) Parainfluenza 3 (PCR) Parainfluenza 4 (PCR) RSV (PCR) RSV RNA Qual (PCR) Entero/Rhino (PCR) SARS-CoV-2 RNA (RT-PCR) Blood Type Antibody Screen Crossmatch 08/16/23 08/16/23 08/16/23 09:45 09:46 09:50 WBC RBC Hgb Hct MCV MCH MCHC RDW Plt Count MPV Immature Gran % (Auto) Neut % (Auto) Lymph % (Auto) Richardson % (Auto) Eos % (Auto) Baso % (Auto) Lymph # (Auto) Richardson # (Auto) Eos # (Auto) Baso # (Auto) Abs Immat Gran (auto) Absolute Neuts (auto) Absolute Nucleated RBC Nucleated RBC % (auto) Smear Tech's Comments Hold Purple Top PT INR APTT Hold Blue Top O2 Saturation ABG pH at Pt Temp ABG pCO2 at Pt Temp ABG pO2 at Pt Temp ABG HCO3 ABG Base Excess (Actual) VBG pH VBG pCO2 VBG pO2 VBG HCO3 VBG O2 Saturation VBG Base Excess Sodium Potassium Chloride Carbon Dioxide Anion Gap BUN Creatinine Estim Creat Clear Calc Estimated GFR POC Glucose Random Glucose Fasting Glucose Lactic Acid Lactic Acid F/U @ 2Hr 2.3 H* Lactic Acid F/U @ 4Hr Calcium Phosphorus Magnesium Total Bilirubin Direct Bilirubin AST ALT Alkaline Phosphatase Total Creatine Kinase Troponin I High Sens Total Protein Albumin Lipase TSH 0.70 Free T4 1.10 Hold Red Top Urine Color Urine Appearance Urine pH Ur Specific [place] Urine Protein Urine Glucose (UA) Urine Ketones Urine Blood Urine Nitrite Ur Leukocyte Esterase Urine RBC Urine WBC Ur Squamous Epith Cells Urine Bacteria Hyaline Casts Urine Test CSF Tube Number CSF Volume CSF Appearance CSF Color CSF WBC CSF RBC CSF Lymphocytes CSF Monocytes % CSF Appearance (b) CSF Glucose CSF Total Protein Vancomycin Trough Random Vancomycin Urine Opiates Screen Urine Fentanyl Screen Ur Barbiturates Screen Ur Phencyclidine Scrn Ur Amphetamines Screen U Benzodiazepines Scrn Urine Cocaine Screen U Marijuana (THC) Screen Ethyl Alcohol Thyroglobulin Antibody 160 H Thyroid Peroxidase Ab 26 H Respiratory Panel [place] See Note Adenovirus (Rapid PCR) Not Detected B.pert (TEM-PCR) Not Detected B.parapertussis DNA PCR Not Detected C. pneumoniae DNA (PCR) Not Detected Coronavirus OC43 (PCR) Not Detected Coronavirus HKU1 (PCR) Not Detected Coronavirus 229E (PCR) Not Detected Coronavirus NL63 (PCR) Not Detected Hepatitis C Ab (EIA) HIV 1&2 Ab/P24 Ag 4thGn Human Metapneumovir PCR Not Detected Influenza A (RT-PCR) Not Detected Influenza Type A (PCR) Influenza B (RT-PCR) Not Detected Influenza Type B (PCR) M. pneumoniae (PCR) Not Detected Parainfluenza 1 (PCR) Not Detected Parainfluenza 2 (PCR) Not Detected Parainfluenza 3 (PCR) Not Detected Parainfluenza 4 (PCR) Not Detected RSV (PCR) Not Detected RSV RNA Qual (PCR) Entero/Rhino (PCR) Not Detected SARS-CoV-2 RNA (RT-PCR) Not Detected Blood Type Antibody Screen Crossmatch 08/16/23 08/17/23 08/17/23 12:59 04:43 04:47 WBC 15.6 H RBC 4.29 Hgb 13.7 Hct 41.3 MCV 96.3 MCH 31.9 MCHC 33.2 RDW 13.1 Plt Count 266 D MPV 11.5 Immature Gran % (Auto) 0.3 Neut % (Auto) 73.5 H Lymph % (Auto) 15.9 L Richardson % (Auto) 10.1 Eos % (Auto) 0.0 Baso % (Auto) 0.2 Lymph # (Auto) 2.5 Richardson # (Auto) 1.6 H Eos # (Auto) 0.0 Baso # (Auto) 0.0 Abs Immat Gran (auto) 0.04 H Absolute Neuts (auto) 11.5 H Absolute Nucleated RBC 0.000 Nucleated RBC % (auto) 0.0 Smear Tech's Comments Hold Purple Top PT INR APTT Hold Blue Top O2 Saturation ABG pH at Pt Temp ABG pCO2 at Pt Temp ABG pO2 at Pt Temp ABG HCO3 ABG Base Excess (Actual) VBG pH 7.46 H VBG pCO2 24 VBG pO2 125 VBG HCO3 17 L VBG O2 Saturation 99.0 VBG Base Excess -4.6 Sodium 140 Potassium 4.1 D Chloride 113 H Carbon Dioxide 15 L Anion Gap 16 BUN 16 Creatinine 1.06 Estim Creat Clear Calc 76.1 Estimated GFR 59 POC Glucose Random Glucose 158 H Fasting Glucose Lactic Acid Lactic Acid F/U @ 2Hr Lactic Acid F/U @ 4Hr 3.1 H* Calcium 8.2 L D Phosphorus 3.1 Magnesium 2.4 Total Bilirubin 0.4 Direct Bilirubin AST 397 H ALT 135 H Alkaline Phosphatase 53 Total Creatine Kinase Troponin I High Sens Total Protein 6.1 L Albumin 3.2 L Lipase TSH Free T4 Hold Red Top Urine Color Urine Appearance Urine pH Ur Specific [place] Urine Protein Urine Glucose (UA) Urine Ketones Urine Blood Urine Nitrite Ur Leukocyte Esterase Urine RBC Urine WBC Ur Squamous Epith Cells Urine Bacteria Hyaline Casts Urine Test CSF Tube Number CSF Volume CSF Appearance CSF Color CSF WBC CSF RBC CSF Lymphocytes CSF Monocytes % CSF Appearance (b) CSF Glucose CSF Total Protein Vancomycin Trough Random Vancomycin Urine Opiates Screen Urine Fentanyl Screen Ur Barbiturates Screen Ur Phencyclidine Scrn Ur Amphetamines Screen U Benzodiazepines Scrn Urine Cocaine Screen U Marijuana (THC) Screen Ethyl Alcohol Thyroglobulin Antibody Thyroid Peroxidase Ab Respiratory Panel [place] Adenovirus (Rapid PCR) B.pert (TEM-PCR) B.parapertussis DNA PCR C. pneumoniae DNA (PCR) Coronavirus OC43 (PCR) Coronavirus HKU1 (PCR) Coronavirus 229E (PCR) Coronavirus NL63 (PCR) Hepatitis C Ab (EIA) HIV 1&2 Ab/P24 Ag 4thGn Human Metapneumovir PCR Influenza A (RT-PCR) Influenza Type A (PCR) Influenza B (RT-PCR) Influenza Type B (PCR) M. pneumoniae (PCR) Parainfluenza 1 (PCR) Parainfluenza 2 (PCR) Parainfluenza 3 (PCR) Parainfluenza 4 (PCR) RSV (PCR) RSV RNA Qual (PCR) Entero/Rhino (PCR) SARS-CoV-2 RNA (RT-PCR) Blood Type Antibody Screen Crossmatch 08/17/23 08/18/23 08/18/23 Unknown 04:28 04:34 WBC 13.7 H RBC 3.88 L Hgb 12.4 Hct 37.9 MCV 97.7 MCH 32.0 MCHC 32.7 RDW 13.2 Plt Count 250 MPV 11.1 Immature Gran % (Auto) 0.4 Neut % (Auto) 58.7 Lymph % (Auto) 32.7 Richardson % (Auto) 7.9 Eos % (Auto) 0.1 Baso % (Auto) 0.2 Lymph # (Auto) 4.5 Richardson # (Auto) 1.1 Eos # (Auto) 0.0 Baso # (Auto) 0.0 Abs Immat Gran (auto) 0.05 H Absolute Neuts (auto) 8.0 Absolute Nucleated RBC 0.000 Nucleated RBC % (auto) 0.0 Smear Tech's Comments VERIFIED Hold Purple Top PT INR APTT Hold Blue Top O2 Saturation ABG pH at Pt Temp ABG pCO2 at Pt Temp ABG pO2 at Pt Temp ABG HCO3 ABG Base Excess (Actual) VBG pH 7.50 H VBG pCO2 32 VBG pO2 47 VBG HCO3 25 VBG O2 Saturation 80.0 VBG Base Excess 2.8 Sodium 143 Potassium 4.0 Chloride 111 H Carbon Dioxide 20 L Anion Gap 16 BUN 12 Creatinine 0.79 Estim Creat Clear Calc 108.0 Estimated GFR > 60 POC Glucose Random Glucose 99 Fasting Glucose Lactic Acid Lactic Acid F/U @ 2Hr Lactic Acid F/U @ 4Hr Calcium 8.5 Phosphorus 2.8 Magnesium 2.5 Total Bilirubin 0.4 Direct Bilirubin AST 296 H ALT 110 H Alkaline Phosphatase 62 Total Creatine Kinase 38868 H Troponin I High Sens Total Protein 5.5 L Albumin 3.0 L Lipase TSH Free T4 Hold Red Top Urine Color Urine Appearance Urine pH Ur Specific [place] Urine Protein Urine Glucose (UA) Urine Ketones Urine Blood Urine Nitrite Ur Leukocyte Esterase Urine RBC Urine WBC Ur Squamous Epith Cells Urine Bacteria Hyaline Casts Urine Test NEGATIVE CSF Tube Number CSF Volume CSF Appearance CSF Color CSF WBC CSF RBC CSF Lymphocytes CSF Monocytes % CSF Appearance (b) CSF Glucose CSF Total Protein Vancomycin Trough 10.1 Random Vancomycin Urine Opiates Screen Urine Fentanyl Screen Ur Barbiturates Screen Ur Phencyclidine Scrn Ur Amphetamines Screen U Benzodiazepines Scrn Urine Cocaine Screen U Marijuana (THC) Screen Ethyl Alcohol Thyroglobulin Antibody Thyroid Peroxidase Ab Respiratory Panel [place] Adenovirus (Rapid PCR) B.pert (TEM-PCR) B.parapertussis DNA PCR C. pneumoniae DNA (PCR) Coronavirus OC43 (PCR) Coronavirus HKU1 (PCR) Coronavirus 229E (PCR) Coronavirus NL63 (PCR) Hepatitis C Ab (EIA) HIV 1&2 Ab/P24 Ag 4thGn Human Metapneumovir PCR Influenza A (RT-PCR) Influenza Type A (PCR) Influenza B (RT-PCR) Influenza Type B (PCR) M. pneumoniae (PCR) Parainfluenza 1 (PCR) Parainfluenza 2 (PCR) Parainfluenza 3 (PCR) Parainfluenza 4 (PCR) RSV (PCR) RSV RNA Qual (PCR) Entero/Rhino (PCR) SARS-CoV-2 RNA (RT-PCR) Blood Type Antibody Screen Crossmatch 08/19/23 08/19/23 08/19/23 05:05 05:16 17:53 WBC 13.8 H RBC 3.33 L Hgb 10.7 L Hct 32.6 L MCV 97.9 MCH 32.1 MCHC 32.8 RDW 13.0 Plt Count 225 MPV 11.3 Immature Gran % (Auto) 0.7 H Neut % (Auto) 50.5 Lymph % (Auto) 42.0 H Richardson % (Auto) 6.4 Eos % (Auto) 0.1 Baso % (Auto) 0.3 Lymph # (Auto) 5.8 H Richardson # (Auto) 0.9 Eos # (Auto) 0.0 Baso # (Auto) 0.0 Abs Immat Gran (auto) 0.09 H Absolute Neuts (auto) 7.0 Absolute Nucleated RBC 0.000 Nucleated RBC % (auto) 0.0 Smear Tech's Comments VERIFIED Hold Purple Top PT INR APTT Hold Blue Top O2 Saturation ABG pH at Pt Temp ABG pCO2 at Pt Temp ABG pO2 at Pt Temp ABG HCO3 ABG Base Excess (Actual) VBG pH 7.58 H VBG pCO2 30 VBG pO2 47 VBG HCO3 28 H VBG O2 Saturation 81.0 VBG Base Excess 7.1 Sodium 143 Potassium 3.8 Chloride 110 H Carbon Dioxide 24 Anion Gap 13 BUN 12 Creatinine 0.71 Estim Creat Clear Calc 121.6 Estimated GFR > 60 POC Glucose Random Glucose 87 Fasting Glucose Lactic Acid Lactic Acid F/U @ 2Hr Lactic Acid F/U @ 4Hr Calcium 8.3 L Phosphorus 1.9 L Magnesium 2.3 Total Bilirubin 0.6 Direct Bilirubin AST 247 H ALT 96 H Alkaline Phosphatase 46 Total Creatine Kinase 72143 H Troponin I High Sens Total Protein 5.3 L Albumin 2.8 L Lipase TSH Free T4 Hold Red Top Urine Color Urine Appearance Urine pH Ur Specific [place] Urine Protein Urine Glucose (UA) Urine Ketones Urine Blood Urine Nitrite Ur Leukocyte Esterase Urine RBC Urine WBC Ur Squamous Epith Cells Urine Bacteria Hyaline Casts Urine Test CSF Tube Number CSF Volume CSF Appearance CSF Color CSF WBC CSF RBC CSF Lymphocytes CSF Monocytes % CSF Appearance (b) CSF Glucose CSF Total Protein Vancomycin Trough Random Vancomycin 11.6 L Urine Opiates Screen Urine Fentanyl Screen Ur Barbiturates Screen Ur Phencyclidine Scrn Ur Amphetamines Screen U Benzodiazepines Scrn Urine Cocaine Screen U Marijuana (THC) Screen Ethyl Alcohol Thyroglobulin Antibody Thyroid Peroxidase Ab Respiratory Panel [place] Adenovirus (Rapid PCR) B.pert (TEM-PCR) B.parapertussis DNA PCR C. pneumoniae DNA (PCR) Coronavirus OC43 (PCR) Coronavirus HKU1 (PCR) Coronavirus 229E (PCR) Coronavirus NL63 (PCR) Hepatitis C Ab (EIA) HIV 1&2 Ab/P24 Ag 4thGn Human Metapneumovir PCR Influenza A (RT-PCR) Influenza Type A (PCR) Influenza B (RT-PCR) Influenza Type B (PCR) M. pneumoniae (PCR) Parainfluenza 1 (PCR) Parainfluenza 2 (PCR) Parainfluenza 3 (PCR) Parainfluenza 4 (PCR) RSV (PCR) RSV RNA Qual (PCR) Entero/Rhino (PCR) SARS-CoV-2 RNA (RT-PCR) Blood Type Antibody Screen Crossmatch 08/19/23 08/20/23 08/20/23 20:05 05:15 05:18 WBC 10.9 H RBC 3.02 L Hgb 9.6 L Hct 29.1 L MCV 96.4 MCH 31.8 MCHC 33.0 RDW 12.7 Plt Count 195 MPV 11.5 Immature Gran % (Auto) 0.5 H Neut % (Auto) 40.4 L Lymph % (Auto) 50.6 H Richardson % (Auto) 7.6 Eos % (Auto) 0.6 Baso % (Auto) 0.3 Lymph # (Auto) 5.5 H Richardson # (Auto) 0.8 Eos # (Auto) 0.1 Baso # (Auto) 0.0 Abs Immat Gran (auto) 0.05 H Absolute Neuts (auto) 4.4 Absolute Nucleated RBC 0.000 Nucleated RBC % (auto) 0.0 Smear Tech's Comments VERIFIED Hold Purple Top PT INR APTT Hold Blue Top O2 Saturation ABG pH at Pt Temp ABG pCO2 at Pt Temp ABG pO2 at Pt Temp ABG HCO3 ABG Base Excess (Actual) VBG pH 7.50 H VBG pCO2 36 VBG pO2 54 VBG HCO3 28 H VBG O2 Saturation 84.0 VBG Base Excess 5.4 Sodium 143 144 Potassium 3.3 3.3 Chloride 109 H 110 H Carbon Dioxide 23 23 Anion Gap 14 14 BUN 12 15 Creatinine 0.70 0.68 Estim Creat Clear Calc 123.4 126.1 Estimated GFR > 60 > 60 POC Glucose Random Glucose 102 81 Fasting Glucose Lactic Acid Lactic Acid F/U @ 2Hr Lactic Acid F/U @ 4Hr Calcium 8.4 8.4 Phosphorus 2.9 2.6 L Magnesium 2.3 2.4 Total Bilirubin 1.0 Direct Bilirubin AST 209 H ALT 91 H Alkaline Phosphatase 37 L Total Creatine Kinase 8395 H Troponin I High Sens Total Protein 5.2 L Albumin 3.0 L 3.2 L Lipase TSH Free T4 Hold Red Top Urine Color Urine Appearance Urine pH Ur Specific [place] Urine Protein Urine Glucose (UA) Urine Ketones Urine Blood Urine Nitrite Ur Leukocyte Esterase Urine RBC Urine WBC Ur Squamous Epith Cells Urine Bacteria Hyaline Casts Urine Test CSF Tube Number CSF Volume CSF Appearance CSF Color CSF WBC CSF RBC CSF Lymphocytes CSF Monocytes % CSF Appearance (b) CSF Glucose CSF Total Protein Vancomycin Trough Random Vancomycin Urine Opiates Screen Urine Fentanyl Screen Ur Barbiturates Screen Ur Phencyclidine Scrn Ur Amphetamines Screen U Benzodiazepines Scrn Urine Cocaine Screen U Marijuana (THC) Screen Ethyl Alcohol Thyroglobulin Antibody Thyroid Peroxidase Ab Respiratory Panel [place] Adenovirus (Rapid PCR) B.pert (TEM-PCR) B.parapertussis DNA PCR C. pneumoniae DNA (PCR) Coronavirus OC43 (PCR) Coronavirus HKU1 (PCR) Coronavirus 229E (PCR) Coronavirus NL63 (PCR) Hepatitis C Ab (EIA) HIV 1&2 Ab/P24 Ag 4thGn Human Metapneumovir PCR Influenza A (RT-PCR) Influenza Type A (PCR) Influenza B (RT-PCR) Influenza Type B (PCR) M. pneumoniae (PCR) Parainfluenza 1 (PCR) Parainfluenza 2 (PCR) Parainfluenza 3 (PCR) Parainfluenza 4 (PCR) RSV (PCR) RSV RNA Qual (PCR) Entero/Rhino (PCR) SARS-CoV-2 RNA (RT-PCR) Blood Type Antibody Screen Crossmatch 08/20/23 08/20/23 08/21/23 07:51 18:01 06:43 WBC 13.1 H RBC 3.18 L Hgb 10.2 L Hct 30.3 L MCV 95.3 MCH 32.1 MCHC 33.7 RDW 12.6 Plt Count 243 MPV 11.6 Immature Gran % (Auto) Neut % (Auto) Lymph % (Auto) Richardson % (Auto) Eos % (Auto) Baso % (Auto) Lymph # (Auto) Richardson # (Auto) Eos # (Auto) Baso # (Auto) Abs Immat Gran (auto) Absolute Neuts (auto) Absolute Nucleated RBC 0.000 Nucleated RBC % (auto) 0.0 Smear Tech's Comments Hold Purple Top PT 11.4 INR 0.9 APTT 25.7 L Hold Blue Top O2 Saturation ABG pH at Pt Temp ABG pCO2 at Pt Temp ABG pO2 at Pt Temp ABG HCO3 ABG Base Excess (Actual) VBG pH VBG pCO2 VBG pO2 VBG HCO3 VBG O2 Saturation VBG Base Excess Sodium 141 Potassium 3.0 L Chloride 108 Carbon Dioxide 22 Anion Gap 14 BUN 16 Creatinine 0.64 Estim Creat Clear Calc 133.9 Estimated GFR > 60 POC Glucose Random Glucose 94 Fasting Glucose Lactic Acid Lactic Acid F/U @ 2Hr Lactic Acid F/U @ 4Hr Calcium 8.5 Phosphorus Magnesium Total Bilirubin 0.8 Direct Bilirubin 0.3 AST 137 H ALT 84 H Alkaline Phosphatase 41 Total Creatine Kinase 4585 H Troponin I High Sens Total Protein 5.0 L Albumin 2.9 L Lipase TSH Free T4 Hold Red Top Urine Color Urine Appearance Urine pH Ur Specific [place] Urine Protein Urine Glucose (UA) Urine Ketones Urine Blood Urine Nitrite Ur Leukocyte Esterase Urine RBC Urine WBC Ur Squamous Epith Cells Urine Bacteria Hyaline Casts Urine Test CSF Tube Number CSF Volume CSF Appearance CSF Color CSF WBC CSF RBC CSF Lymphocytes CSF Monocytes % CSF Appearance (b) CSF Glucose CSF Total Protein Vancomycin Trough Random Vancomycin 18.1 Urine Opiates Screen Urine Fentanyl Screen Ur Barbiturates Screen Ur Phencyclidine Scrn Ur Amphetamines Screen U Benzodiazepines Scrn Urine Cocaine Screen U Marijuana (THC) Screen Ethyl Alcohol Thyroglobulin Antibody Thyroid Peroxidase Ab Respiratory Panel [place] Adenovirus (Rapid PCR) B.pert (TEM-PCR) B.parapertussis DNA PCR C. pneumoniae DNA (PCR) Coronavirus OC43 (PCR) Coronavirus HKU1 (PCR) Coronavirus 229E (PCR) Coronavirus NL63 (PCR) Hepatitis C Ab (EIA) HIV 1&2 Ab/P24 Ag 4thGn Human Metapneumovir PCR Influenza A (RT-PCR) Influenza Type A (PCR) Influenza B (RT-PCR) Influenza Type B (PCR) M. pneumoniae (PCR) Parainfluenza 1 (PCR) Parainfluenza 2 (PCR) Parainfluenza 3 (PCR) Parainfluenza 4 (PCR) RSV (PCR) RSV RNA Qual (PCR) Entero/Rhino (PCR) SARS-CoV-2 RNA (RT-PCR) Blood Type Antibody Screen Crossmatch 08/21/23 08/22/23 08/22/23 10:35 07:08 10:04 WBC 13.0 H RBC 3.32 L Hgb 10.5 L Hct 30.9 L MCV 93.1 MCH 31.6 MCHC 34.0 RDW 12.6 Plt Count 269 MPV 11.2 Immature Gran % (Auto) Neut % (Auto) Lymph % (Auto) Richardson % (Auto) Eos % (Auto) Baso % (Auto) Lymph # (Auto) Richardson # (Auto) Eos # (Auto) Baso # (Auto) Abs Immat Gran (auto) Absolute Neuts (auto) Absolute Nucleated RBC 0.000 Nucleated RBC % (auto) 0.0 Smear Tech's Comments Hold Purple Top PT INR APTT Hold Blue Top O2 Saturation ABG pH at Pt Temp ABG pCO2 at Pt Temp ABG pO2 at Pt Temp ABG HCO3 ABG Base Excess (Actual) VBG pH VBG pCO2 VBG pO2 VBG HCO3 VBG O2 Saturation VBG Base Excess Sodium 142 Potassium 2.7 L Chloride 107 Carbon Dioxide 25 Anion Gap 13 BUN 11 Creatinine 0.54 Estim Creat Clear Calc 158.7 Estimated GFR > 60 POC Glucose Random Glucose 88 Fasting Glucose Lactic Acid Lactic Acid F/U @ 2Hr Lactic Acid F/U @ 4Hr Calcium 7.7 L D Phosphorus Magnesium Total Bilirubin Direct Bilirubin AST ALT Alkaline Phosphatase Total Creatine Kinase 2349 H Troponin I High Sens Total Protein Albumin Lipase TSH Free T4 Hold Red Top Urine Color Urine Appearance Urine pH Ur Specific [place] Urine Protein Urine Glucose (UA) Urine Ketones Urine Blood Urine Nitrite Ur Leukocyte Esterase Urine RBC Urine WBC Ur Squamous Epith Cells Urine Bacteria Hyaline Casts Urine Test CSF Tube Number CSF Volume CSF Appearance CSF Color CSF WBC CSF RBC CSF Lymphocytes CSF Monocytes % CSF Appearance (b) CSF Glucose CSF Total Protein Vancomycin Trough 15.6 Random Vancomycin 14.3 L Urine Opiates Screen Urine Fentanyl Screen Ur Barbiturates Screen Ur Phencyclidine Scrn Ur Amphetamines Screen U Benzodiazepines Scrn Urine Cocaine Screen U Marijuana (THC) Screen Ethyl Alcohol Thyroglobulin Antibody Thyroid Peroxidase Ab Respiratory Panel [place] Adenovirus (Rapid PCR) B.pert (TEM-PCR) B.parapertussis DNA PCR C. pneumoniae DNA (PCR) Coronavirus OC43 (PCR) Coronavirus HKU1 (PCR) Coronavirus 229E (PCR) Coronavirus NL63 (PCR) Hepatitis C Ab (EIA) HIV 1&2 Ab/P24 Ag 4thGn Human Metapneumovir PCR Influenza A (RT-PCR) Influenza Type A (PCR) Influenza B (RT-PCR) Influenza Type B (PCR) M. pneumoniae (PCR) Parainfluenza 1 (PCR) Parainfluenza 2 (PCR) Parainfluenza 3 (PCR) Parainfluenza 4 (PCR) RSV (PCR) RSV RNA Qual (PCR) Entero/Rhino (PCR) SARS-CoV-2 RNA (RT-PCR) Blood Type Antibody Screen Crossmatch 08/22/23 08/23/23 08/23/23 18:35 07:09 13:18 WBC 10.4 RBC 3.13 L Hgb 10.1 L Hct 29.7 L MCV 94.9 MCH 32.3 MCHC 34.0 RDW 12.5 Plt Count 276 MPV 11.2 Immature Gran % (Auto) Neut % (Auto) Lymph % (Auto) Richardson % (Auto) Eos % (Auto) Baso % (Auto) Lymph # (Auto) Richardson # (Auto) Eos # (Auto) Baso # (Auto) Abs Immat Gran (auto) Absolute Neuts (auto) Absolute Nucleated RBC 0.000 Nucleated RBC % (auto) 0.0 Smear Tech's Comments Hold Purple Top PT INR APTT Hold Blue Top O2 Saturation ABG pH at Pt Temp ABG pCO2 at Pt Temp ABG pO2 at Pt Temp ABG HCO3 ABG Base Excess (Actual) VBG pH VBG pCO2 VBG pO2 VBG HCO3 VBG O2 Saturation VBG Base Excess Sodium 139 138 138 Potassium 3.1 L 2.7 L 3.3 D Chloride 103 104 104 Carbon Dioxide 25 24 27 Anion Gap 14 13 10 L BUN 8 L 7 L 7 L Creatinine 0.57 0.57 0.58 Estim Creat Clear Calc 150.4 150.4 147.7 Estimated GFR > 60 > 60 > 60 POC Glucose Random Glucose 127 H 95 104 Fasting Glucose Lactic Acid Lactic Acid F/U @ 2Hr Lactic Acid F/U @ 4Hr Calcium 8.6 D 8.1 L 8.0 L Phosphorus Magnesium Total Bilirubin Direct Bilirubin AST ALT Alkaline Phosphatase Total Creatine Kinase Troponin I High Sens Total Protein Albumin Lipase TSH Free T4 Hold Red Top Urine Color Urine Appearance Urine pH Ur Specific [place] Urine Protein Urine Glucose (UA) Urine Ketones Urine Blood Urine Nitrite Ur Leukocyte Esterase Urine RBC Urine WBC Ur Squamous Epith Cells Urine Bacteria Hyaline Casts Urine Test CSF Tube Number CSF Volume CSF Appearance CSF Color CSF WBC CSF RBC CSF Lymphocytes CSF Monocytes % CSF Appearance (b) CSF Glucose CSF Total Protein Vancomycin Trough Random Vancomycin 22.9 H Urine Opiates Screen Urine Fentanyl Screen Ur Barbiturates Screen Ur Phencyclidine Scrn Ur Amphetamines Screen U Benzodiazepines Scrn Urine Cocaine Screen U Marijuana (THC) Screen Ethyl Alcohol Thyroglobulin Antibody Thyroid Peroxidase Ab Respiratory Panel [place] Adenovirus (Rapid PCR) B.pert (TEM-PCR) B.parapertussis DNA PCR C. pneumoniae DNA (PCR) Coronavirus OC43 (PCR) Coronavirus HKU1 (PCR) Coronavirus 229E (PCR) Coronavirus NL63 (PCR) Hepatitis C Ab (EIA) HIV 1&2 Ab/P24 Ag 4thGn Human Metapneumovir PCR Influenza A (RT-PCR) Influenza Type A (PCR) Influenza B (RT-PCR) Influenza Type B (PCR) M. pneumoniae (PCR) Parainfluenza 1 (PCR) Parainfluenza 2 (PCR) Parainfluenza 3 (PCR) Parainfluenza 4 (PCR) RSV (PCR) RSV RNA Qual (PCR) Entero/Rhino (PCR) SARS-CoV-2 RNA (RT-PCR) Blood Type Antibody Screen Crossmatch 08/23/23 08/24/23 08/25/23 18:04 07:12 06:26 WBC 9.4 RBC 2.78 L Hgb 8.8 L Hct 26.4 L MCV 95.0 MCH 31.7 MCHC 33.3 RDW 12.8 Plt Count 234 MPV 10.6 Immature Gran % (Auto) Neut % (Auto) Lymph % (Auto) Richardson % (Auto) Eos % (Auto) Baso % (Auto) Lymph # (Auto) Richardson # (Auto) Eos # (Auto) Baso # (Auto) Abs Immat Gran (auto) Absolute Neuts (auto) Absolute Nucleated RBC 0.000 Nucleated RBC % (auto) 0.0 Smear Tech's Comments Hold Purple Top PT INR APTT Hold Blue Top O2 Saturation ABG pH at Pt Temp ABG pCO2 at Pt Temp ABG pO2 at Pt Temp ABG HCO3 ABG Base Excess (Actual) VBG pH VBG pCO2 VBG pO2 VBG HCO3 VBG O2 Saturation VBG Base Excess Sodium 139 Potassium 3.1 L Chloride 106 Carbon Dioxide 24 Anion Gap 12 BUN 5 L Creatinine 0.53 0.59 Estim Creat Clear Calc 161.7 145.3 Estimated GFR > 60 > 60 POC Glucose Random Glucose 89 Fasting Glucose Lactic Acid Lactic Acid F/U @ 2Hr Lactic Acid F/U @ 4Hr Calcium 7.7 L Phosphorus Magnesium Total Bilirubin Direct Bilirubin AST ALT Alkaline Phosphatase Total Creatine Kinase Troponin I High Sens Total Protein Albumin Lipase TSH Free T4 Hold Red Top Urine Color Urine Appearance Urine pH Ur Specific [place] Urine Protein Urine Glucose (UA) Urine Ketones Urine Blood Urine Nitrite Ur Leukocyte Esterase Urine RBC Urine WBC Ur Squamous Epith Cells Urine Bacteria Hyaline Casts Urine Test CSF Tube Number CSF Volume CSF Appearance CSF Color CSF WBC CSF RBC CSF Lymphocytes CSF Monocytes % CSF Appearance (b) CSF Glucose CSF Total Protein Vancomycin Trough Random Vancomycin 14.3 L Urine Opiates Screen Urine Fentanyl Screen Ur Barbiturates Screen Ur Phencyclidine Scrn Ur Amphetamines Screen U Benzodiazepines Scrn Urine Cocaine Screen U Marijuana (THC) Screen Ethyl Alcohol Thyroglobulin Antibody Thyroid Peroxidase Ab Respiratory Panel [place] Adenovirus (Rapid PCR) B.pert (TEM-PCR) B.parapertussis DNA PCR C. pneumoniae DNA (PCR) Coronavirus OC43 (PCR) Coronavirus HKU1 (PCR) Coronavirus 229E (PCR) Coronavirus NL63 (PCR) Hepatitis C Ab (EIA) HIV 1&2 Ab/P24 Ag 4thGn Human Metapneumovir PCR Influenza A (RT-PCR) Influenza Type A (PCR) Influenza B (RT-PCR) Influenza Type B (PCR) M. pneumoniae (PCR) Parainfluenza 1 (PCR) Parainfluenza 2 (PCR) Parainfluenza 3 (PCR) Parainfluenza 4 (PCR) RSV (PCR) RSV RNA Qual (PCR) Entero/Rhino (PCR) SARS-CoV-2 RNA (RT-PCR) Blood Type Antibody Screen Crossmatch 08/25/23 08/25/23 08/26/23 08:31 10:44 06:35 WBC 11.5 H RBC 2.53 L Hgb 10.1 L 7.9 L D Hct 30.7 L 24.1 L D MCV 95.3 MCH 31.2 MCHC 32.8 RDW 12.6 Plt Count 272 MPV 11.3 Immature Gran % (Auto) Neut % (Auto) Lymph % (Auto) Richardson % (Auto) Eos % (Auto) Baso % (Auto) Lymph # (Auto) Richardson # (Auto) Eos # (Auto) Baso # (Auto) Abs Immat Gran (auto) Absolute Neuts (auto) Absolute Nucleated RBC 0.000 Nucleated RBC % (auto) 0.0 Smear Tech's Comments Hold Purple Top SEE NOTE PT INR APTT Hold Blue Top O2 Saturation ABG pH at Pt Temp ABG pCO2 at Pt Temp ABG pO2 at Pt Temp ABG HCO3 ABG Base Excess (Actual) VBG pH VBG pCO2 VBG pO2 VBG HCO3 VBG O2 Saturation VBG Base Excess Sodium 137 135 Potassium 3.5 3.7 Chloride 99 101 Carbon Dioxide 27 24 Anion Gap 15 14 BUN 7 L Creatinine 0.64 Estim Creat Clear Calc 133.9 Estimated GFR > 60 POC Glucose Random Glucose Fasting Glucose 104 H Lactic Acid Lactic Acid F/U @ 2Hr Lactic Acid F/U @ 4Hr Calcium 8.4 D Phosphorus Magnesium Total Bilirubin Direct Bilirubin AST ALT Alkaline Phosphatase Total Creatine Kinase Troponin I High Sens Total Protein Albumin Lipase TSH Free T4 Hold Red Top Urine Color Urine Appearance Urine pH Ur Specific [place] Urine Protein Urine Glucose (UA) Urine Ketones Urine Blood Urine Nitrite Ur Leukocyte Esterase Urine RBC Urine WBC Ur Squamous Epith Cells Urine Bacteria Hyaline Casts Urine Test CSF Tube Number CSF Volume CSF Appearance CSF Color CSF WBC CSF RBC CSF Lymphocytes CSF Monocytes % CSF Appearance (b) CSF Glucose CSF Total Protein Vancomycin Trough Random Vancomycin Urine Opiates Screen Urine Fentanyl Screen Ur Barbiturates Screen Ur Phencyclidine Scrn Ur Amphetamines Screen U Benzodiazepines Scrn Urine Cocaine Screen U Marijuana (THC) Screen Ethyl Alcohol Thyroglobulin Antibody Thyroid Peroxidase Ab Respiratory Panel [place] Adenovirus (Rapid PCR) B.pert (TEM-PCR) B.parapertussis DNA PCR C. pneumoniae DNA (PCR) Coronavirus OC43 (PCR) Coronavirus HKU1 (PCR) Coronavirus 229E (PCR) Coronavirus NL63 (PCR) Hepatitis C Ab (EIA) HIV 1&2 Ab/P24 Ag 4thGn Human Metapneumovir PCR Influenza A (RT-PCR) Influenza Type A (PCR) Influenza B (RT-PCR) Influenza Type B (PCR) M. pneumoniae (PCR) Parainfluenza 1 (PCR) Parainfluenza 2 (PCR) Parainfluenza 3 (PCR) Parainfluenza 4 (PCR) RSV (PCR) RSV RNA Qual (PCR) Entero/Rhino (PCR) SARS-CoV-2 RNA (RT-PCR) Blood Type B Positive Antibody Screen NEGATIVE Crossmatch 08/26/23 08/27/23 08/27/23 15:01 06:07 15:05 WBC 10.5 RBC 2.55 L Hgb 8.2 L Hct 24.5 L MCV 96.1 MCH 32.2 MCHC 33.5 RDW 12.4 Plt Count 306 MPV 11.5 Immature Gran % (Auto) Neut % (Auto) Lymph % (Auto) Richardson % (Auto) Eos % (Auto) Baso % (Auto) Lymph # (Auto) Richardson # (Auto) Eos # (Auto) Baso # (Auto) Abs Immat Gran (auto) Absolute Neuts (auto) Absolute Nucleated RBC 0.000 Nucleated RBC % (auto) 0.0 Smear Tech's Comments Hold Purple Top PT INR APTT Hold Blue Top O2 Saturation ABG pH at Pt Temp ABG pCO2 at Pt Temp ABG pO2 at Pt Temp ABG HCO3 ABG Base Excess (Actual) VBG pH VBG pCO2 VBG pO2 VBG HCO3 VBG O2 Saturation VBG Base Excess Sodium 138 Potassium 3.9 Chloride 103 Carbon Dioxide 25 Anion Gap 14 BUN 5 L Creatinine 0.66 Estim Creat Clear Calc 129.8 Estimated GFR > 60 POC Glucose Random Glucose Fasting Glucose 105 H Lactic Acid Lactic Acid F/U @ 2Hr Lactic Acid F/U @ 4Hr Calcium 8.4 Phosphorus Magnesium Total Bilirubin Direct Bilirubin AST ALT Alkaline Phosphatase Total Creatine Kinase Troponin I High Sens Total Protein Albumin Lipase TSH Free T4 Hold Red Top Urine Color Urine Appearance Urine pH Ur Specific [place] Urine Protein Urine Glucose (UA) Urine Ketones Urine Blood Urine Nitrite Ur Leukocyte Esterase Urine RBC Urine WBC Ur Squamous Epith Cells Urine Bacteria Hyaline Casts Urine Test CSF Tube Number CSF Volume CSF Appearance CSF Color CSF WBC CSF RBC CSF Lymphocytes CSF Monocytes % CSF Appearance (b) CSF Glucose CSF Total Protein Vancomycin Trough Random Vancomycin 8.1 L 19.2 Urine Opiates Screen Urine Fentanyl Screen Ur Barbiturates Screen Ur Phencyclidine Scrn Ur Amphetamines Screen U Benzodiazepines Scrn Urine Cocaine Screen U Marijuana (THC) Screen Ethyl Alcohol Thyroglobulin Antibody Thyroid Peroxidase Ab Respiratory Panel [place] Adenovirus (Rapid PCR) B.pert (TEM-PCR) B.parapertussis DNA PCR C. pneumoniae DNA (PCR) Coronavirus OC43 (PCR) Coronavirus HKU1 (PCR) Coronavirus 229E (PCR) Coronavirus NL63 (PCR) Hepatitis C Ab (EIA) HIV 1&2 Ab/P24 Ag 4thGn Human Metapneumovir PCR Influenza A (RT-PCR) Influenza Type A (PCR) Influenza B (RT-PCR) Influenza Type B (PCR) M. pneumoniae (PCR) Parainfluenza 1 (PCR) Parainfluenza 2 (PCR) Parainfluenza 3 (PCR) Parainfluenza 4 (PCR) RSV (PCR) RSV RNA Qual (PCR) Entero/Rhino (PCR) SARS-CoV-2 RNA (RT-PCR) Blood Type Antibody Screen Crossmatch 08/28/23 08/28/23 08/28/23 07:25 13:38 16:28 WBC RBC Hgb Hct MCV MCH MCHC RDW Plt Count MPV Immature Gran % (Auto) Neut % (Auto) Lymph % (Auto) Richardson % (Auto) Eos % (Auto) Baso % (Auto) Lymph # (Auto) Richardson # (Auto) Eos # (Auto) Baso # (Auto) Abs Immat Gran (auto) Absolute Neuts (auto) Absolute Nucleated RBC Nucleated RBC % (auto) Smear Tech's Comments Hold Purple Top SEE NOTE PT INR APTT Hold Blue Top O2 Saturation ABG pH at Pt Temp ABG pCO2 at Pt Temp ABG pO2 at Pt Temp ABG HCO3 ABG Base Excess (Actual) VBG pH VBG pCO2 VBG pO2 VBG HCO3 VBG O2 Saturation VBG Base Excess Sodium Potassium Chloride Carbon Dioxide Anion Gap BUN Creatinine 0.72 Estim Creat Clear Calc 119.0 Estimated GFR > 60 POC Glucose Random Glucose Fasting Glucose Lactic Acid Lactic Acid F/U @ 2Hr Lactic Acid F/U @ 4Hr Calcium Phosphorus Magnesium Total Bilirubin Direct Bilirubin AST ALT Alkaline Phosphatase Total Creatine Kinase Troponin I High Sens Total Protein Albumin Lipase TSH Free T4 Hold Red Top Urine Color Urine Appearance Urine pH Ur Specific [place] Urine Protein Urine Glucose (UA) Urine Ketones Urine Blood Urine Nitrite Ur Leukocyte Esterase Urine RBC Urine WBC Ur Squamous Epith Cells Urine Bacteria Hyaline Casts Urine Test CSF Tube Number CSF Volume CSF Appearance CSF Color CSF WBC CSF RBC CSF Lymphocytes CSF Monocytes % CSF Appearance (b) CSF Glucose CSF Total Protein Vancomycin Trough Random Vancomycin 13.5 L Urine Opiates Screen Urine Fentanyl Screen Ur Barbiturates Screen Ur Phencyclidine Scrn Ur Amphetamines Screen U Benzodiazepines Scrn Urine Cocaine Screen U Marijuana (THC) Screen Ethyl Alcohol Thyroglobulin Antibody Thyroid Peroxidase Ab Respiratory Panel [place] Adenovirus (Rapid PCR) B.pert (TEM-PCR) B.parapertussis DNA PCR C. pneumoniae DNA (PCR) Coronavirus OC43 (PCR) Coronavirus HKU1 (PCR) Coronavirus 229E (PCR) Coronavirus NL63 (PCR) Hepatitis C Ab (EIA) HIV 1&2 Ab/P24 Ag 4thGn Human Metapneumovir PCR Influenza A (RT-PCR) Influenza Type A (PCR) Cancelled Influenza B (RT-PCR) Influenza Type B (PCR) Cancelled M. pneumoniae (PCR) Parainfluenza 1 (PCR) Parainfluenza 2 (PCR) Parainfluenza 3 (PCR) Parainfluenza 4 (PCR) RSV (PCR) RSV RNA Qual (PCR) Cancelled Entero/Rhino (PCR) SARS-CoV-2 RNA (RT-PCR) Cancelled Blood Type B Positive Antibody Screen NEGATIVE Crossmatch 08/28/23 08/29/23 08/29/23 19:00 07:04 14:19 WBC 8.1 RBC 2.32 L Hgb 7.6 L 7.2 L Hct 22.2 L 22.2 L MCV 95.7 MCH 31.0 MCHC 32.4 RDW 12.5 Plt Count 324 MPV 11.4 Immature Gran % (Auto) Neut % (Auto) Lymph % (Auto) Richardson % (Auto) Eos % (Auto) Baso % (Auto) Lymph # (Auto) Richardson # (Auto) Eos # (Auto) Baso # (Auto) Abs Immat Gran (auto) Absolute Neuts (auto) Absolute Nucleated RBC 0.000 Nucleated RBC % (auto) 0.0 Smear Tech's Comments Hold Purple Top PT INR APTT Hold Blue Top O2 Saturation ABG pH at Pt Temp ABG pCO2 at Pt Temp ABG pO2 at Pt Temp ABG HCO3 ABG Base Excess (Actual) VBG pH VBG pCO2 VBG pO2 VBG HCO3 VBG O2 Saturation VBG Base Excess Sodium 136 Potassium 3.5 Chloride 102 Carbon Dioxide 23 Anion Gap 15 BUN 5 L Creatinine 0.75 Estim Creat Clear Calc 114.2 Estimated GFR > 60 POC Glucose Random Glucose Fasting Glucose 109 H Lactic Acid Lactic Acid F/U @ 2Hr Lactic Acid F/U @ 4Hr Calcium 8.4 Phosphorus Magnesium Total Bilirubin Direct Bilirubin AST ALT Alkaline Phosphatase Total Creatine Kinase Troponin I High Sens Total Protein Albumin Lipase TSH Free T4 Hold Red Top See Note Urine Color Urine Appearance Urine pH Ur Specific [place] Urine Protein Urine Glucose (UA) Urine Ketones Urine Blood Urine Nitrite Ur Leukocyte Esterase Urine RBC Urine WBC Ur Squamous Epith Cells Urine Bacteria Hyaline Casts Urine Test CSF Tube Number CSF Volume CSF Appearance CSF Color CSF WBC CSF RBC CSF Lymphocytes CSF Monocytes % CSF Appearance (b) CSF Glucose CSF Total Protein Vancomycin Trough Random Vancomycin 12.4 L Urine Opiates Screen Urine Fentanyl Screen Ur Barbiturates Screen Ur Phencyclidine Scrn Ur Amphetamines Screen U Benzodiazepines Scrn Urine Cocaine Screen U Marijuana (THC) Screen Ethyl Alcohol Thyroglobulin Antibody Thyroid Peroxidase Ab Respiratory Panel Tate Adenovirus (Rapid PCR) B.pert (TEM-PCR) B.parapertussis DNA PCR C. pneumoniae DNA (PCR) Coronavirus OC43 (PCR) Coronavirus HKU1 (PCR) Coronavirus 229E (PCR) Coronavirus NL63 (PCR) Hepatitis C Ab (EIA) Nonreactive HIV 1&2 Ab/P24 Ag 4thGn Nonreactive Human Metapneumovir PCR Influenza A (RT-PCR) Influenza Type A (PCR) Influenza B (RT-PCR) Influenza Type B (PCR) M. pneumoniae (PCR) Parainfluenza 1 (PCR) Parainfluenza 2 (PCR) Parainfluenza 3 (PCR) Parainfluenza 4 (PCR) RSV (PCR) RSV RNA Qual (PCR) Entero/Rhino (PCR) SARS-CoV-2 RNA (RT-PCR) Blood Type Antibody Screen Crossmatch 08/30/23 08/30/23 08/31/23 06:00 14:42 10:02 WBC RBC Hgb Hct MCV MCH MCHC RDW Plt Count MPV Immature Gran % (Auto) Neut % (Auto) Lymph % (Auto) Richardson % (Auto) Eos % (Auto) Baso % (Auto) Lymph # (Auto) Richardson # (Auto) Eos # (Auto) Baso # (Auto) Abs Immat Gran (auto) Absolute Neuts (auto) Absolute Nucleated RBC Nucleated RBC % (auto) Smear Tech's Comments Hold Purple Top SEE NOTE PT INR APTT Hold Blue Top O2 Saturation ABG pH at Pt Temp ABG pCO2 at Pt Temp ABG pO2 at Pt Temp ABG HCO3 ABG Base Excess (Actual) VBG pH VBG pCO2 VBG pO2 VBG HCO3 VBG O2 Saturation VBG Base Excess Sodium Potassium Chloride Carbon Dioxide Anion Gap BUN Creatinine 0.74 0.70 Estim Creat Clear Calc 115.8 122.4 Estimated GFR > 60 > 60 POC Glucose Random Glucose Fasting Glucose Lactic Acid Lactic Acid F/U @ 2Hr Lactic Acid F/U @ 4Hr Calcium Phosphorus Magnesium Total Bilirubin Direct Bilirubin AST ALT Alkaline Phosphatase Total Creatine Kinase Troponin I High Sens Total Protein Albumin Lipase TSH Free T4 Hold Red Top Urine Color Urine Appearance Urine pH Ur Specific [place] Urine Protein Urine Glucose (UA) Urine Ketones Urine Blood Urine Nitrite Ur Leukocyte Esterase Urine RBC Urine WBC Ur Squamous Epith Cells Urine Bacteria Hyaline Casts Urine Test CSF Tube Number CSF Volume CSF Appearance CSF Color CSF WBC CSF RBC CSF Lymphocytes CSF Monocytes % CSF Appearance (b) CSF Glucose CSF Total Protein Vancomycin Trough Random Vancomycin 12.9 L Urine Opiates Screen Urine Fentanyl Screen Ur Barbiturates Screen Ur Phencyclidine Scrn Ur Amphetamines Screen U Benzodiazepines Scrn Urine Cocaine Screen U Marijuana (THC) Screen Ethyl Alcohol Thyroglobulin Antibody Thyroid Peroxidase Ab Respiratory Panel [place] Adenovirus (Rapid PCR) B.pert (TEM-PCR) B.parapertussis DNA PCR C. pneumoniae DNA (PCR) Coronavirus OC43 (PCR) Coronavirus HKU1 (PCR) Coronavirus 229E (PCR) Coronavirus NL63 (PCR) Hepatitis C Ab (EIA) HIV 1&2 Ab/P24 Ag 4thGn Human Metapneumovir PCR Influenza A (RT-PCR) Influenza Type A (PCR) Influenza B (RT-PCR) Influenza Type B (PCR) M. pneumoniae (PCR) Parainfluenza 1 (PCR) Parainfluenza 2 (PCR) Parainfluenza 3 (PCR) Parainfluenza 4 (PCR) RSV (PCR) RSV RNA Qual (PCR) Entero/Rhino (PCR) SARS-CoV-2 RNA (RT-PCR) Blood Type Antibody Screen Crossmatch 08/31/23 08/31/23 08/31/23 13:49 19:20 19:57 WBC 5.6 RBC 2.01 L Hgb 6.2 L* Hct 19.7 L* MCV 98.0 MCH 30.8 MCHC 31.5 RDW 13.0 Plt Count 331 MPV 10.8 Immature Gran % (Auto) Neut % (Auto) Lymph % (Auto) Richardson % (Auto) Eos % (Auto) Baso % (Auto) Lymph # (Auto) Richardson # (Auto) Eos # (Auto) Baso # (Auto) Abs Immat Gran (auto) Absolute Neuts (auto) Absolute Nucleated RBC 0.000 Nucleated RBC % (auto) 0.0 Smear Tech's Comments Hold Purple Top PT INR APTT Hold Blue Top O2 Saturation ABG pH at Pt Temp ABG pCO2 at Pt Temp ABG pO2 at Pt Temp ABG HCO3 ABG Base Excess (Actual) VBG pH VBG pCO2 VBG pO2 VBG HCO3 VBG O2 Saturation VBG Base Excess Sodium 136 Potassium 3.5 Chloride 102 Carbon Dioxide 23 Anion Gap 15 BUN 6 L Creatinine 0.74 Estim Creat Clear Calc 115.8 Estimated GFR > 60 POC Glucose Random Glucose 98 Fasting Glucose Lactic Acid Lactic Acid F/U @ 2Hr Lactic Acid F/U @ 4Hr Calcium 8.5 Phosphorus Magnesium Total Bilirubin Direct Bilirubin AST ALT Alkaline Phosphatase Total Creatine Kinase Troponin I High Sens Total Protein Albumin Lipase TSH Free T4 Hold Red Top Urine Color Urine Appearance Urine pH Ur Specific [place] Urine Protein Urine Glucose (UA) Urine Ketones Urine Blood Urine Nitrite Ur Leukocyte Esterase Urine RBC Urine WBC Ur Squamous Epith Cells Urine Bacteria Hyaline Casts Urine Test CSF Tube Number CSF Volume CSF Appearance CSF Color CSF WBC CSF RBC CSF Lymphocytes CSF Monocytes % CSF Appearance (b) CSF Glucose CSF Total Protein Vancomycin Trough Random Vancomycin 17.5 Urine Opiates Screen Urine Fentanyl Screen Ur Barbiturates Screen Ur Phencyclidine Scrn Ur Amphetamines Screen U Benzodiazepines Scrn Urine Cocaine Screen U Marijuana (THC) Screen Ethyl Alcohol Thyroglobulin Antibody Thyroid Peroxidase Ab Respiratory Panel [place] Adenovirus (Rapid PCR) B.pert (TEM-PCR) B.parapertussis DNA PCR C. pneumoniae DNA (PCR) Coronavirus OC43 (PCR) Coronavirus HKU1 (PCR) Coronavirus 229E (PCR) Coronavirus NL63 (PCR) Hepatitis C Ab (EIA) HIV 1&2 Ab/P24 Ag 4thGn Human Metapneumovir PCR Influenza A (RT-PCR) Influenza Type A (PCR) Influenza B (RT-PCR) Influenza Type B (PCR) M. pneumoniae (PCR) Parainfluenza 1 (PCR) Parainfluenza 2 (PCR) Parainfluenza 3 (PCR) Parainfluenza 4 (PCR) RSV (PCR) RSV RNA Qual (PCR) Entero/Rhino (PCR) SARS-CoV-2 RNA (RT-PCR) Blood Type B Positive Antibody Screen NEGATIVE Crossmatch See Detail 09/01/23 09/01/23 09/01/23 06:34 08:40 10:27 WBC 5.1 RBC 2.31 L Hgb 7.2 L Hct 22.1 L MCV 95.7 MCH 31.2 MCHC 32.6 RDW 13.2 Plt Count 334 MPV 11.0 Immature Gran % (Auto) Neut % (Auto) Lymph % (Auto) Richardson % (Auto) Eos % (Auto) Baso % (Auto) Lymph # (Auto) Richardson # (Auto) Eos # (Auto) Baso # (Auto) Abs Immat Gran (auto) Absolute Neuts (auto) Absolute Nucleated RBC 0.000 Nucleated RBC % (auto) 0.0 Smear Tech's Comments Hold Purple Top PT INR APTT Hold Blue Top O2 Saturation ABG pH at Pt Temp ABG pCO2 at Pt Temp ABG pO2 at Pt Temp ABG HCO3 ABG Base Excess (Actual) VBG pH VBG pCO2 VBG pO2 VBG HCO3 VBG O2 Saturation VBG Base Excess Sodium 136 Potassium 3.5 Chloride 105 Carbon Dioxide 21 L Anion Gap 14 BUN 7 L Creatinine 0.72 Estim Creat Clear Calc 119.0 Estimated GFR > 60 POC Glucose Random Glucose 101 Fasting Glucose Lactic Acid 0.8 Lactic Acid F/U @ 2Hr Lactic Acid F/U @ 4Hr Calcium 8.2 L Phosphorus Magnesium Total Bilirubin 0.7 Direct Bilirubin 0.2 AST 30 ALT 26 Alkaline Phosphatase 42 Total Creatine Kinase Troponin I High Sens Total Protein 5.2 L Albumin 2.8 L Lipase TSH Free T4 Hold Red Top Urine Color Yellow Urine Appearance Cloudy Urine pH 8.0 Ur Specific [place] 1.010 Urine Protein Negative Urine Glucose (UA) Negative Urine Ketones Negative Urine Blood Trace H Urine Nitrite Negative Ur Leukocyte Esterase Small (1+) H Urine RBC >20 H Urine WBC 0-5 Ur Squamous Epith Cells 0-2 Urine Bacteria None Seen Hyaline Casts 0-2 Urine Test CSF Tube Number CSF Volume CSF Appearance CSF Color CSF WBC CSF RBC CSF Lymphocytes CSF Monocytes % CSF Appearance (b) CSF Glucose CSF Total Protein Vancomycin Trough Random Vancomycin Urine Opiates Screen POSITIVE H Urine Fentanyl Screen Not Detected Ur Barbiturates Screen Not Detected Ur Phencyclidine Scrn Not Detected Ur Amphetamines Screen Not Detected U Benzodiazepines Scrn Not Detected Urine Cocaine Screen Not Detected U Marijuana (THC) Screen Not Detected Ethyl Alcohol Thyroglobulin Antibody Thyroid Peroxidase Ab Respiratory Panel [place] Adenovirus (Rapid PCR) B.pert (TEM-PCR) B.parapertussis DNA PCR C. pneumoniae DNA (PCR) Coronavirus OC43 (PCR) Coronavirus HKU1 (PCR) Coronavirus 229E (PCR) Coronavirus NL63 (PCR) Hepatitis C Ab (EIA) HIV 1&2 Ab/P24 Ag 4thGn Human Metapneumovir PCR Influenza A (RT-PCR) Influenza Type A (PCR) Influenza B (RT-PCR) Influenza Type B (PCR) M. pneumoniae (PCR) Parainfluenza 1 (PCR) Parainfluenza 2 (PCR) Parainfluenza 3 (PCR) Parainfluenza 4 (PCR) RSV (PCR) RSV RNA Qual (PCR) Entero/Rhino (PCR) SARS-CoV-2 RNA (RT-PCR) Blood Type Antibody Screen Crossmatch 09/01/23 09/02/23 09/02/23 14:54 06:23 13:47 WBC 2.8 L RBC 2.44 L Hgb 7.6 L Hct 23.4 L MCV 95.9 MCH 31.1 MCHC 32.5 RDW 13.2 Plt Count 325 MPV 10.6 Immature Gran % (Auto) 0.4 Neut % (Auto) 51.9 Lymph % (Auto) 38.4 Richardson % (Auto) 7.2 Eos % (Auto) 1.4 Baso % (Auto) 0.7 Lymph # (Auto) 1.1 L Richardson # (Auto) 0.2 Eos # (Auto) 0.0 Baso # (Auto) 0.0 Abs Immat Gran (auto) 0.01 Absolute Neuts (auto) 1.5 L Absolute Nucleated RBC 0.000 Nucleated RBC % (auto) 0.0 Smear Tech's Comments Hold Purple Top PT INR APTT Hold Blue Top O2 Saturation ABG pH at Pt Temp ABG pCO2 at Pt Temp ABG pO2 at Pt Temp ABG HCO3 ABG Base Excess (Actual) VBG pH VBG pCO2 VBG pO2 VBG HCO3 VBG O2 Saturation VBG Base Excess Sodium 135 Potassium 3.3 Chloride 105 Carbon Dioxide 21 L Anion Gap 12 BUN 4 L Creatinine 0.77 Estim Creat Clear Calc 111.3 Estimated GFR > 60 POC Glucose Random Glucose 94 Fasting Glucose Lactic Acid Lactic Acid F/U @ 2Hr Lactic Acid F/U @ 4Hr Calcium 8.5 Phosphorus Magnesium Total Bilirubin Direct Bilirubin AST ALT Alkaline Phosphatase Total Creatine Kinase Troponin I High Sens Total Protein Albumin Lipase TSH Free T4 Hold Red Top Urine Color Urine Appearance Urine pH Ur Specific [place] Urine Protein Urine Glucose (UA) Urine Ketones Urine Blood Urine Nitrite Ur Leukocyte Esterase Urine RBC Urine WBC Ur Squamous Epith Cells Urine Bacteria Hyaline Casts Urine Test CSF Tube Number CSF Volume CSF Appearance CSF Color CSF WBC CSF RBC CSF Lymphocytes CSF Monocytes % CSF Appearance (b) CSF Glucose CSF Total Protein Vancomycin Trough 13.1 Random Vancomycin 14.3 L Urine Opiates Screen Urine Fentanyl Screen Ur Barbiturates Screen Ur Phencyclidine Scrn Ur Amphetamines Screen U Benzodiazepines Scrn Urine Cocaine Screen U Marijuana (THC) Screen Ethyl Alcohol Thyroglobulin Antibody Thyroid Peroxidase Ab Respiratory Panel [place] Adenovirus (Rapid PCR) B.pert (TEM-PCR) B.parapertussis DNA PCR C. pneumoniae DNA (PCR) Coronavirus OC43 (PCR) Coronavirus HKU1 (PCR) Coronavirus 229E (PCR) Coronavirus NL63 (PCR) Hepatitis C Ab (EIA) HIV 1&2 Ab/P24 Ag 4thGn Human Metapneumovir PCR Influenza A (RT-PCR) Influenza Type A (PCR) Influenza B (RT-PCR) Influenza Type B (PCR) M. pneumoniae (PCR) Parainfluenza 1 (PCR) Parainfluenza 2 (PCR) Parainfluenza 3 (PCR) Parainfluenza 4 (PCR) RSV (PCR) RSV RNA Qual (PCR) Entero/Rhino (PCR) SARS-CoV-2 RNA (RT-PCR) Blood Type Antibody Screen Crossmatch 09/03/23 09/03/23 09/04/23 07:10 13:44 06:32 WBC 3.9 L RBC 2.66 L Hgb 8.3 L Hct 25.8 L MCV 97.0 MCH 31.2 MCHC 32.2 RDW 13.3 Plt Count 303 MPV 10.9 Immature Gran % (Auto) 0.5 H Neut % (Auto) 40.5 L Lymph % (Auto) 48.8 H Richardson % (Auto) 5.1 Eos % (Auto) 4.6 H Baso % (Auto) 0.5 Lymph # (Auto) 1.9 Richardson # (Auto) 0.2 Eos # (Auto) 0.2 Baso # (Auto) 0.0 Abs Immat Gran (auto) 0.02 Absolute Neuts (auto) 1.6 L Absolute Nucleated RBC 0.000 Nucleated RBC % (auto) 0.0 Smear Tech's Comments Hold Purple Top SEE NOTE PT INR APTT Hold Blue Top O2 Saturation ABG pH at Pt Temp ABG pCO2 at Pt Temp ABG pO2 at Pt Temp ABG HCO3 ABG Base Excess (Actual) VBG pH VBG pCO2 VBG pO2 VBG HCO3 VBG O2 Saturation VBG Base Excess Sodium Potassium Chloride Carbon Dioxide Anion Gap BUN Creatinine 0.70 0.79 Estim Creat Clear Calc 122.4 108.5 Estimated GFR > 60 > 60 POC Glucose Random Glucose Fasting Glucose Lactic Acid Lactic Acid F/U @ 2Hr Lactic Acid F/U @ 4Hr Calcium Phosphorus Magnesium Total Bilirubin Direct Bilirubin AST ALT Alkaline Phosphatase Total Creatine Kinase Troponin I High Sens Total Protein Albumin Lipase TSH Free T4 Hold Red Top Urine Color Urine Appearance Urine pH Ur Specific [place] Urine Protein Urine Glucose (UA) Urine Ketones Urine Blood Urine Nitrite Ur Leukocyte Esterase Urine RBC Urine WBC Ur Squamous Epith Cells Urine Bacteria Hyaline Casts Urine Test CSF Tube Number CSF Volume CSF Appearance CSF Color CSF WBC CSF RBC CSF Lymphocytes CSF Monocytes % CSF Appearance (b) CSF Glucose CSF Total Protein Vancomycin Trough Random Vancomycin 13.4 L Urine Opiates Screen Urine Fentanyl Screen Ur Barbiturates Screen Ur Phencyclidine Scrn Ur Amphetamines Screen U Benzodiazepines Scrn Urine Cocaine Screen U Marijuana (THC) Screen Ethyl Alcohol Thyroglobulin Antibody Thyroid Peroxidase Ab Respiratory Panel [place] Adenovirus (Rapid PCR) B.pert (TEM-PCR) B.parapertussis DNA PCR C. pneumoniae DNA (PCR) Coronavirus OC43 (PCR) Coronavirus HKU1 (PCR) Coronavirus 229E (PCR) Coronavirus NL63 (PCR) Hepatitis C Ab (EIA) HIV 1&2 Ab/P24 Ag 4thGn Human Metapneumovir PCR Influenza A (RT-PCR) Influenza Type A (PCR) Influenza B (RT-PCR) Influenza Type B (PCR) M. pneumoniae (PCR) Parainfluenza 1 (PCR) Parainfluenza 2 (PCR) Parainfluenza 3 (PCR) Parainfluenza 4 (PCR) RSV (PCR) RSV RNA Qual (PCR) Entero/Rhino (PCR) SARS-CoV-2 RNA (RT-PCR) Blood Type Antibody Screen Crossmatch 09/04/23 09/05/23 09/05/23 14:34 06:17 08:10 WBC 4.9 RBC 2.33 L Hgb 7.1 L Hct 21.5 L MCV 92.3 MCH 30.5 MCHC 33.0 RDW 13.1 Plt Count 258 MPV 11.2 Immature Gran % (Auto) Neut % (Auto) Lymph % (Auto) Richardson % (Auto) Eos % (Auto) Baso % (Auto) Lymph # (Auto) Richardson # (Auto) Eos # (Auto) Baso # (Auto) Abs Immat Gran (auto) Absolute Neuts (auto) Absolute Nucleated RBC 0.000 Nucleated RBC % (auto) 0.0 Smear Tech's Comments Hold Purple Top SEE NOTE PT INR APTT Hold Blue Top O2 Saturation ABG pH at Pt Temp ABG pCO2 at Pt Temp ABG pO2 at Pt Temp ABG HCO3 ABG Base Excess (Actual) VBG pH VBG pCO2 VBG pO2 VBG HCO3 VBG O2 Saturation VBG Base Excess Sodium 134 L Potassium 3.3 Chloride 104 Carbon Dioxide 21 L Anion Gap 12 BUN 9 Creatinine 0.73 0.70 Estim Creat Clear Calc 117.4 122.4 Estimated GFR > 60 > 60 POC Glucose Random Glucose 85 Fasting Glucose Lactic Acid Lactic Acid F/U @ 2Hr Lactic Acid F/U @ 4Hr Calcium 8.6 Phosphorus Magnesium Total Bilirubin Direct Bilirubin AST ALT Alkaline Phosphatase Total Creatine Kinase Troponin I High Sens Total Protein Albumin Lipase TSH Free T4 Hold Red Top Urine Color Urine Appearance Urine pH Ur Specific [place] Urine Protein Urine Glucose (UA) Urine Ketones Urine Blood Urine Nitrite Ur Leukocyte Esterase Urine RBC Urine WBC Ur Squamous Epith Cells Urine Bacteria Hyaline Casts Urine Test CSF Tube Number CSF Volume CSF Appearance CSF Color CSF WBC CSF RBC CSF Lymphocytes CSF Monocytes % CSF Appearance (b) CSF Glucose CSF Total Protein Vancomycin Trough Random Vancomycin 15.1 Urine Opiates Screen Urine Fentanyl Screen Ur Barbiturates Screen Ur Phencyclidine Scrn Ur Amphetamines Screen U Benzodiazepines Scrn Urine Cocaine Screen U Marijuana (THC) Screen Ethyl Alcohol Thyroglobulin Antibody Thyroid Peroxidase Ab Respiratory Panel [place] Adenovirus (Rapid PCR) B.pert (TEM-PCR) B.parapertussis DNA PCR C. pneumoniae DNA (PCR) Coronavirus OC43 (PCR) Coronavirus HKU1 (PCR) Coronavirus 229E (PCR) Coronavirus NL63 (PCR) Hepatitis C Ab (EIA) HIV 1&2 Ab/P24 Ag 4thGn Nonreactive Human Metapneumovir PCR Influenza A (RT-PCR) Influenza Type A (PCR) Influenza B (RT-PCR) Influenza Type B (PCR) M. pneumoniae (PCR) Parainfluenza 1 (PCR) Parainfluenza 2 (PCR) Parainfluenza 3 (PCR) Parainfluenza 4 (PCR) RSV (PCR) RSV RNA Qual (PCR) Entero/Rhino (PCR) SARS-CoV-2 RNA (RT-PCR) Blood Type Antibody Screen Crossmatch 09/05/23 09/06/23 09/07/23 12:58 05:44 11:49 WBC 7.7 RBC 3.26 L D Hgb 9.2 L D 10.1 L Hct 27.4 L D 29.6 L MCV 90.8 MCH 31.0 MCHC 34.1 RDW 13.8 Plt Count 294 MPV 11.5 Immature Gran % (Auto) 0.4 Neut % (Auto) 68.1 Lymph % (Auto) 18.4 L Richardson % (Auto) 8.4 Eos % (Auto) 4.3 H Baso % (Auto) 0.4 Lymph # (Auto) 1.4 Richardson # (Auto) 0.7 Eos # (Auto) 0.3 Baso # (Auto) 0.0 Abs Immat Gran (auto) 0.03 Absolute Neuts (auto) 5.3 Absolute Nucleated RBC 0.000 Nucleated RBC % (auto) 0.0 Smear Tech's Comments Hold Purple Top PT INR APTT Hold Blue Top O2 Saturation ABG pH at Pt Temp ABG pCO2 at Pt Temp ABG pO2 at Pt Temp ABG HCO3 ABG Base Excess (Actual) VBG pH VBG pCO2 VBG pO2 VBG HCO3 VBG O2 Saturation VBG Base Excess Sodium 135 Potassium 3.6 Chloride 102 Carbon Dioxide 23 Anion Gap 14 BUN 8 L Creatinine 0.74 0.72 Estim Creat Clear Calc 115.8 119.0 Estimated GFR > 60 > 60 POC Glucose Random Glucose 114 Fasting Glucose Lactic Acid Lactic Acid F/U @ 2Hr Lactic Acid F/U @ 4Hr Calcium 8.7 Phosphorus Magnesium Total Bilirubin Direct Bilirubin AST ALT Alkaline Phosphatase Total Creatine Kinase Troponin I High Sens Total Protein Albumin Lipase TSH Free T4 Hold Red Top Urine Color Urine Appearance Urine pH Ur Specific [place] Urine Protein Urine Glucose (UA) Urine Ketones Urine Blood Urine Nitrite Ur Leukocyte Esterase Urine RBC Urine WBC Ur Squamous Epith Cells Urine Bacteria Hyaline Casts Urine Test CSF Tube Number CSF Volume CSF Appearance CSF Color CSF WBC CSF RBC CSF Lymphocytes CSF Monocytes % CSF Appearance (b) CSF Glucose CSF Total Protein Vancomycin Trough Random Vancomycin Urine Opiates Screen Urine Fentanyl Screen Ur Barbiturates Screen Ur Phencyclidine Scrn Ur Amphetamines Screen U Benzodiazepines Scrn Urine Cocaine Screen U Marijuana (THC) Screen Ethyl Alcohol Thyroglobulin Antibody Thyroid Peroxidase Ab Respiratory Panel [place] Adenovirus (Rapid PCR) B.pert (TEM-PCR) B.parapertussis DNA PCR C. pneumoniae DNA (PCR) Coronavirus OC43 (PCR) Coronavirus HKU1 (PCR) Coronavirus 229E (PCR) Coronavirus NL63 (PCR) Hepatitis C Ab (EIA) HIV 1&2 Ab/P24 Ag 4thGn Human Metapneumovir PCR Influenza A (RT-PCR) Influenza Type A (PCR) Influenza B (RT-PCR) Influenza Type B (PCR) M. pneumoniae (PCR) Parainfluenza 1 (PCR) Parainfluenza 2 (PCR) Parainfluenza 3 (PCR) Parainfluenza 4 (PCR) RSV (PCR) RSV RNA Qual (PCR) Entero/Rhino (PCR) SARS-CoV-2 RNA (RT-PCR) Blood Type B Positive Antibody Screen NEGATIVE Crossmatch See Detail 09/09/23 09/10/23 06:38 06:18 WBC 8.6 7.8 RBC 3.08 L 3.07 L Hgb 9.4 L 9.2 L Hct 28.5 L 27.9 L MCV 92.5 90.9 MCH 30.5 30.0 MCHC 33.0 33.0 RDW 13.9 13.7 Plt Count 336 430 H D MPV 11.8 11.2 Immature Gran % (Auto) 0.3 0.5 H Neut % (Auto) 49.3 38.2 L Lymph % (Auto) 29.4 41.8 H Richardson % (Auto) 6.8 8.9 Eos % (Auto) 13.7 H 10.2 H Baso % (Auto) 0.5 0.4 Lymph # (Auto) 2.5 3.3 Richardson # (Auto) 0.6 0.7 Eos # (Auto) 1.2 H 0.8 H Baso # (Auto) 0.0 0.0 Abs Immat Gran (auto) 0.03 0.04 H Absolute Neuts (auto) 4.3 3.0 Absolute Nucleated RBC 0.000 0.000 Nucleated RBC % (auto) 0.0 0.0 Smear Tech's Comments Hold Purple Top PT INR APTT Hold Blue Top O2 Saturation ABG pH at Pt Temp ABG pCO2 at Pt Temp ABG pO2 at Pt Temp ABG HCO3 ABG Base Excess (Actual) VBG pH VBG pCO2 VBG pO2 VBG HCO3 VBG O2 Saturation VBG Base Excess Sodium 134 L Potassium 3.6 Chloride 102 Carbon Dioxide 22 Anion Gap 14 BUN 8 L Creatinine 0.64 Estim Creat Clear Calc 133.9 Estimated GFR > 60 POC Glucose Random Glucose 93 Fasting Glucose Lactic Acid Lactic Acid F/U @ 2Hr Lactic Acid F/U @ 4Hr Calcium 9.2 Phosphorus Magnesium Total Bilirubin Direct Bilirubin AST ALT Alkaline Phosphatase Total Creatine Kinase Troponin I High Sens Total Protein Albumin Lipase TSH Free T4 Hold Red Top Urine Color Urine Appearance Urine pH Ur Specific [place] Urine Protein Urine Glucose (UA) Urine Ketones Urine Blood Urine Nitrite Ur Leukocyte Esterase Urine RBC Urine WBC Ur Squamous Epith Cells Urine Bacteria Hyaline Casts Urine Test CSF Tube Number CSF Volume CSF Appearance CSF Color CSF WBC CSF RBC CSF Lymphocytes CSF Monocytes % CSF Appearance (b) CSF Glucose CSF Total Protein Vancomycin Trough Random Vancomycin Urine Opiates Screen Urine Fentanyl Screen Ur Barbiturates Screen Ur Phencyclidine Scrn Ur Amphetamines Screen U Benzodiazepines Scrn Urine Cocaine Screen U Marijuana (THC) Screen Ethyl Alcohol Thyroglobulin Antibody Thyroid Peroxidase Ab Respiratory Panel [place] Adenovirus (Rapid PCR) B.pert (TEM-PCR) B.parapertussis DNA PCR C. pneumoniae DNA (PCR) Coronavirus OC43 (PCR) Coronavirus HKU1 (PCR) Coronavirus 229E (PCR) Coronavirus NL63 (PCR) Hepatitis C Ab (EIA) HIV 1&2 Ab/P24 Ag 4thGn Human Metapneumovir PCR Influenza A (RT-PCR) Influenza Type A (PCR) Influenza B (RT-PCR) Influenza Type B (PCR) M. pneumoniae (PCR) Parainfluenza 1 (PCR) Parainfluenza 2 (PCR) Parainfluenza 3 (PCR) Parainfluenza 4 (PCR) RSV (PCR) RSV RNA Qual (PCR) Entero/Rhino (PCR) SARS-CoV-2 RNA (RT-PCR) Blood Type Antibody Screen Crossmatch Narrative Narrative: EKG 08/31/2023 Sinus tachycardia Nonspecific T wave abnormality Abnormal ECG When compared with ECG of 16-AUG-2023 06:43, Nonspecific T wave abnormality, worse in Inferior leads Nonspecific T wave abnormality now evident in Anterolateral leads Heart rate has decreased 08/17/2023 ECHO : Conclusions: - The left ventricular systolic function is severely decreased. The calculated ejection fraction is 22% by biplane method. - There is severe global hypokinesis with regional variation. - No obvious valvular pathology seen on this study. Airway Mallampati Class: III TM Dist: >3cm Neck ROM: Full Loose/Missing/Broken Teeth: Yes Assessment and Plan Assessment Anesthesia Assessment: Anesthesia Plan Discussed and Chart Reviewed Final Anesthetic Review Family History of Problems with Anesthesia: No History of Problems with Anesthesia: No NPO: Yes ASA Class: III and Emergency Final Preanesthetic Review: Meds/Allgs Chart Reviewed, Consent Obtained/Reviewed and Anes Risks/Benef Reviewed Patient Risk: Intermediate Procedure Risk: Intermediate Anesthetic Plan Anesthetic Plan: GA and Agree w/ Assess. and Plan Disposition: Standard PACU and Inp. Admit - IMC
--- NOTE | 2023-09-12 15:54 | P.BOP_ITS ---
Brief Operative Note Date of Service: 09/12/23 Pre-op diagnosis: left forearm compartment syndrome Post-op diagnosis: same Procedure: irrigation and debridement left forearm with partial delayed primary closure and wound vac change Surgeon: Devang Long MD Anesthesia: GETA lawrence PEREIRAA Was an Gas Substation Operator used for this Procedure?: No Estimated blood loss (mL): 25 IV fluids (mL): 500 Pathology: none sent Condition: stable Disposition: PACU
[2023-09-12] MEDS: fentaNYL citrate/PF 100 MCG/2 ML VIAL 25 MCG IVPUSH ×2 (16:25→16:32)
[2023-09-13] VITALS (10 sets, daily range): BP systolic 103–126; BP diastolic 58–76; PULSE 74–89; RESP 17–18; TEMP 35.7–36.4; O2SAT 93–96
[2023-09-13] MEDS: HYDROmorphone HCl 2 MG TABLET 3 MG PO ×6 (01:44→21:40)
[2023-09-13] MEDS: diphenhydrAMINE HCL 25 MG CAPSULE PO ×2 (01:51→13:13)
[2023-09-13] MEDS: Morphine Sulfate ER 15 MG TABLET.ER PO ×3 (05:25→21:12)
--- NOTE | 2023-09-13 07:22 | PM.PNORT ---
Subjective Subjective Date of Service: 09/13/23 Principal diagnosis: left brachial plexus neuropathy and compartment syndrome forearm Interval history: Left forearm pain managed s/p irrigation and debridement left forearm with partial delayed primary closure and wound vac change 09/12/[address] No overnight events Patient is resting comfortably in bed No additional complaints Physical Exam Vital Signs: Vital Signs: Last Vital Signs Temp 96.3 F L 09/13/23 03:04 Pulse 74 09/13/23 03:04 Resp 18 09/13/23 03:04 BP 103/58 L 09/13/23 03:04 Pulse Ox 94 09/13/23 03:04 O2 Del Method Room Air 09/13/23 03:04 O2 Flow Rate 6 09/08/23 15:25 FiO2 35 08/19/23 07:58 BMI result Body Mass Index 29.3 Extrem: Other: left forearm wound vac holding suction arm and forearm soft no motion except triceps Procedures Date of Service Date of Service: 09/13/23 Progress Note: A&P Assessment and plan (1) Brachial plexopathy: Status: Acute (2) Compartment syndrome of forearm: Status: Acute Assessment and Plan: Stable with no motor function sensation improving over dorsum of hand but dense numbness over volar forearm Wound vac in place with appropriate suctioning Pain management Time Spent With Patient Time: Total time managing care of this patient today ____ minutes. Quality Stroke Does the patient have a stroke diagnosis?: No VTE Prior VTE?: No VTE Risk Level:: Medical - moderate - high VTE Device Contraindication: N/A - Device Ordered VTE Drug Contraindication: Treatment Not Indicated
--- NOTE | 2023-09-13 07:56 | HO.PM.IMPN ---
Subjective Subjective Date of Service: 09/13/23 Interval History: follow up for left arm compartment syndrome/infection still no feeling to left hand forearm Review of Systems Review of Systems: Yes all other systems are reviewed and are negative Constitutional Constitutional: Denies chills and Reports fever(s) Cardiovascular Cardiovascular: Denies chest pain, Denies palpitations and Denies dyspnea Respiratory Respiratory: Denies cough and Denies dyspnea Gastrointestinal Gastrointestinal: Denies abdominal pain, Denies nausea and Denies vomiting Genitourinary Genitourinary: Denies dysuria, Denies urinary incontinence and Denies urinary urgency Endocrine Endocrine: Denies palpitations Physical Exam Vital Signs: Vital Signs: Last Vital Signs Temp 97.2 F 09/13/23 07:34 Pulse 82 09/13/23 07:34 Resp 18 09/13/23 03:04 BP 106/61 09/13/23 07:34 Pulse Ox 93 09/13/23 07:34 O2 Del Method Room Air 09/13/23 07:34 O2 Flow Rate 6 09/08/23 15:25 FiO2 35 08/19/23 07:58 BMI result Body Mass Index 29.3 Appearing in no acute distress lung sounds are clear to auscultation heart regular rate rhythm, clear S1, S2 positive bowel sounds, abdomen is soft, nontender neuro patient is alert x3, no focal deficits Objective Data Active Medications Acetaminophen (Acetaminophen 325 Mg Tablet) 650 mg PO Q4H PRN PRN Reason: fever or pain Last Admin: 09/09/23 09:33 Dose: 650 mg Documented By: RU Acetaminophen (Acetaminophen Supp 650 Mg Supp.Rect) 650 mg DE Q4H PRN PRN Reason: Fever Carvedilol (Carvedilol 3.125 Mg Tablet) 3.125 mg PO BID [facility]; Protocol Last Admin: 09/12/23 20:40 Dose: 3.125 mg Documented By: ROWENA Diphenhydramine HCl (Diphenhydramine Hcl 25 Mg Capsule) 25 mg PO Q6H PRN PRN Reason: itching Last Admin: 09/13/23 01:51 Dose: 25 mg Documented By: ROWENA Docusate Sodium (Docusate Sodium 100 Mg Capsule) 100 mg PO BID [facility] Last Admin: 09/12/23 20:43 Dose: 100 mg Documented By: ROWENA Fentanyl (Fentanyl Citrate/Pf 100 Mcg/2 Ml Vial) 25 mcg IVPUSH Q5M PRN; Protocol PRN Reason: Pain, Moderate(Pain Scale 4-6) Last Admin: 09/12/23 16:32 Dose: 25 mcg Documented By: BLAINE Gabapentin (Gabapentin 100 Mg Capsule) 200 mg PO BID [facility] Last Admin: 09/12/23 20:43 Dose: 200 mg Documented By: ROWENA Hydrocortisone (Hydrocortisone 1 % Cream 28.35 Gm Tube) 1 appl TOPICAL DAILY [facility]; Protocol Last Admin: 09/12/23 08:44 Dose: Not Given Documented By: CLAUDIA Non-Admin Reason: Patient Refused Hydromorphone HCl (Hydromorphone Hcl 2 Mg Tablet) 3 mg PO Q4H [facility] Last Admin: 09/13/23 05:25 Dose: 3 mg Documented By: LU Lactulose (Lactulose 20 Gm/30 Ml Solution) 20 gm PO TID [facility] Last Admin: 09/01/23 07:45 Dose: Not Given Documented By: YANNI Non-Admin Reason: diarrhea Lidocaine (Lidocaine 4 % Patch Adh..Patch) 1 patch TRANSDERMA DAILY [facility]; Protocol Morphine Sulfate (Morphine Sulfate Er 15 Mg Tablet.Er) 15 mg PO Q8H [facility] Last Admin: 09/13/23 05:25 Dose: 15 mg Documented By: LU Sodium Chloride (0.9 % Sodium Chloride Flush 3 Ml Syringe) 3 ml IVFLUSH QSHIFT [facility] Last Admin: 09/12/23 20:44 Dose: 3 ml Documented By: ROWENA Labs 09/10/23 06:18 09/10/23 06:18 Microbiology Microbiology Results: Microbiology 09/07/23 13:24 Blood Culture - Final Blood - Venous No growth after 5 days. 09/07/23 13:24 Blood Culture - Final Blood - Venous No growth after 5 days. Assessment and Plan (1) Peroneal neuropathy at knee: Status: Acute (2) Compartment syndrome of forearm: Status: Acute (3) Traumatic brachial plexopathy: Status: Acute Plan This is a 33 year old lady who presented with AMS from overdose developed left arm Compartment syndrome, rhabdo, aspiration, CMP requiring ICU admission and intubation with multiple surgeries to relieve the compartment, downgraded to the medical floor 08/21 now with ongoing intermittent fever. Compartment syndrome of left forearm s/p fasciotomy, multiple debridements ortho, vascular, wound team following, wound vac in place s/p IV vancomycin, and zosyn stopped due to likely cause of drug fever and leukopenia weaning narcotics, Benadryl for itching debridement and wound vac change 09/11/23 Fevers no fever since 09/09/23 in the morning has had intermittent fevers throughout hospitalization TLC removed, UA/cx negative, CT scan of abdomen/pelvis negative 09/01, atelectasis on CT - encourage incentive spirometry, no leukocytosis, HIV negative, tagged WBC scan negative repeat blood cultures from 09/07 neg after 24hrs LUE US, RLE negative for DVT zosyn and vanco stopped for concern of drug fever discussed with ortho>possibly caused from increase buildup of nectrotic tissue in between debridements Acute Normocytic anemia likely component of blood loss from multiple surgeries and acute illness s/p 3U RBCs Follow H&H Leukopenia Resolved likely result of zosyn Acute 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 - likely secondary to prolonged compression Persistent left foot pain due to neuropathy, continue Neurontin, lidocaine patch seen by photographic machine operator> Night splint for foot drop(secondary to peroneal neuropathy d/t prolonged compression) to keep in dorsiflexion outpatient EMG studies continue PT/OT inpatient New onset acute Cardiomyopathy Echo on 08/17 showed EF 20% repeat Echo per ICU showed improvement echo consistent with takotsubo cardiomyopathy per cardiology Seen by cardiology>carvedilol and consider KENNETH-I if able to tolerate, so far bp has been soft rec repeat ECHO 4 weeks from initial echo - due around 09/14 Aspiration pneumonia completed course of IV Vanco and Meropenem Rhabdo toxic and mechanical secondary drug OD and prolonged downtime CPK [id number] on admission, trended down with IVF Elevated LFTs LFTs have normalized Acute hypokalemia resolved with replacement Constipation Laxatives prn; hold for diarrhea Drug abuse Addiction team following New onset seizure Neurology eval one time incident, no need to treat, no recurrent seizures noted DVT PPx- SCDs - due to ongoing interventions for left arm. has been up to chair daily attending - dr. Catrachito TAYLOR lives at home with family, plan to dc home when medically stable reason for continued hospitalization: ongoing surgical interventions, fever Time Spent With Patient Time: Total time managing care of this patient today ____ minutes. Quality Stroke Does the patient have a stroke diagnosis?: No VTE Prior VTE?: No VTE Risk Level:: Medical - moderate - high VTE Device Contraindication: N/A - Device Ordered VTE Drug Contraindication: Treatment Not Indicated
--- NOTE | 2023-09-13 07:59 | P.OP_ITS ---
Operative Note Operative Note Date of Service: 09/12/23 Narrative: Date of Service: 09/12/23 Pre-op diagnosis: left forearm compartment syndrome Post-op diagnosis: same Procedure: irrigation and debridement left forearm with partial delayed primary closure and wound vac change Surgeon: Devang Long MD Anesthesia: GETA and GLMA Was an Data Analytics Chief Scientist used for this Procedure?: No Estimated blood loss (mL): 25 IV fluids (mL): 500 Pathology: none sent Condition: stable Disposition: PACU Patient was brought to the operating room and placed supine on the surgical table. She was prepped and draped in standard sterile fashion and a time out was called to indentify proper site, proper procedure and IV antibiotics per weight were administered.I removed the wound vac. the tissue was beefy red and healthy. There was no purulence. I did place a suction distally into the forearm and proximally up the arm. There were no abnormal fluid collections. I debrided minimally proximally into the bicipital region where there was necroitic muscle. I removed anything that wasn't bleeding. I irrigated copiusly and then closed ~ 2 cm proximall and ~ 1 cm distally with nylon suture. A wound vac was then re- applied. The patient tolerated the procedure and there were no known complications.
[2023-09-13] MEDS: Lidocaine 4 % Patch ADH..PATCH 1 PATCH TRANSDERMA (08:13)
[2023-09-13] MEDS: 0.9 % Sodium Chloride Flush 3 ML SYRINGE IVFLUSH ×2 (08:13→17:16)
[2023-09-13] MEDS: Gabapentin 100 MG CAPSULE 200 MG PO ×2 (08:16→21:12)
[2023-09-13] MEDS: carvediloL 3.125 MG TABLET PO ×2 (08:16→21:13)
[2023-09-13] MEDS: Docusate Sodium 100 MG CAPSULE PO ×2 (08:17→21:12)
[2023-09-13] MEDS: Hydrocortisone 1 % Cream 28.35 GM TUBE 1 APPL TOPICAL (08:22)
--- NOTE | 2023-09-13 10:13 | MHC.CM.PN ---
Per ROUNDS discussion, Patient had another surgical debridement yesterday and she is not yet medically cleared for dc. PT is recommending Acute Rehab and CM will continue to follow.
--- NOTE | 2023-09-13 13:58 | HO.POSTANES ---
Post Anesthesia Evaluation Post Anesthesia Evaluation Date of Service: 09/13/23 Vital Signs: Vital Signs Temp Pulse Resp BP Pulse Ox O2 Del Method 09/13/23 13:00 95 Room Air 09/13/23 11:43 80 103/64 93 09/13/23 11:16 97.0 F 80 17 103/64 93 Room Air 09/13/23 07:34 97.2 F 82 106/61 93 Room Air 09/13/23 03:04 96.3 F L 74 18 103/58 L 94 Room Air Anesthesia: General Mental Status: Awake Pain Control: Satisfactory Nausea/Vomiting: None Hydration: Adequate Anesthesia-Related Issues: No Anes. Related Issues
[2023-09-14] VITALS (7 sets, daily range): BP systolic 106–134; BP diastolic 71–88; PULSE 80–92; RESP 17–20; TEMP 36.1–36.9; O2SAT 94–99
[2023-09-14] MEDS: HYDROmorphone HCl 2 MG TABLET 3 MG PO ×3 (04:43→21:21)
[2023-09-14 07:06] LABS: Hematocrit 31.4 % (37.0-47.0); Hemoglobin 10.3 g/dl (12.0-16.0); Mean Corpuscular HGB Conc 32.8 g/dl (31.0-35.0); Mean Corpuscular Hemoglobin 30.3 pg (27.0-33.0); Mean Corpuscular Volume 92.4 fL (80.0-98.0); Mean Platelet Volume 10.7 fL (9.4-12.3); Platelet Count 580 X10*3/uL (160-400); Red Cell Distribution Width 14.3 % (11.0-16.0); White Blood Count 9.4 X10*3/uL (4.8-10.8)
[2023-09-14 07:20] LABS: Anion Gap 15 (12-20); Blood Urea Nitrogen 9 mg/dL (9-16); Calcium 9.7 mg/dL (8.4-10.2); Carbon Dioxide 23 mmol/L (22-29); Chloride 103 mmol/L (96-108); Creatinine Clr Calc Pharmacy 129.8; Estimated Glomerular Filt Rate > 60; Glucose Random 106 mg/dL (60-115); Potassium 3.7 mmol/L (3.3-5.1); Sodium 137 mmol/L (135-145)
[2023-09-14] MEDS: Morphine Sulfate ER 15 MG TABLET.ER PO ×3 (08:47→23:50)
[2023-09-14] MEDS: Docusate Sodium 100 MG CAPSULE PO ×2 (08:47→21:20)
[2023-09-14] MEDS: Lidocaine 4 % Patch ADH..PATCH 1 PATCH TRANSDERMA (08:47)
[2023-09-14] MEDS: Gabapentin 100 MG CAPSULE 200 MG PO ×2 (08:47→21:20)
[2023-09-14] MEDS: carvediloL 3.125 MG TABLET PO ×2 (08:47→21:20)
[2023-09-14] MEDS: 0.9 % Sodium Chloride Flush 3 ML SYRINGE IVFLUSH ×2 (08:47→23:50)
[2023-09-14] MEDS: diphenhydrAMINE HCL 25 MG CAPSULE PO ×2 (08:54→21:20)
--- NOTE | 2023-09-14 16:44 | HO.PM.IMPN ---
Subjective Subjective Date of Service: 09/14/23 Interval History: seen and examined this morning follow up for left arm infection/compartment syndrome no overnight events reporting left leg pain, no change in left arm Review of Systems Review of Systems: Yes all other systems are reviewed and are negative Constitutional Constitutional: Denies chills and Denies fever(s) Cardiovascular Cardiovascular: Denies chest pain and Denies dyspnea Respiratory Respiratory: Denies cough and Denies dyspnea Gastrointestinal Gastrointestinal: Denies abdominal pain Physical Exam Vital Signs: Vital Signs: Last Vital Signs Temp 97.9 F 09/14/23 15:25 Pulse 87 09/14/23 15:25 Resp 18 09/14/23 15:25 BP 134/82 09/14/23 15:25 Pulse Ox 97 09/14/23 15:25 O2 Del Method Room Air 09/14/23 15:25 O2 Flow Rate 6 09/08/23 15:25 FiO2 35 08/19/23 07:58 BMI result Body Mass Index 29.3 Const: General: cooperative, comfortable, no acute distress, alert and awake Nutritional Appearance: overweight Orientation/consciousness: patient oriented x3 Resp: Effort & Inspection: normal respiratory effort, able to speak in complete sentences, no respiratory distress and no use of accessory muscles Cardio: Rate: regular rate GI: Inspection: No distended Palpation (GI): Soft to palpation Skin: Other: LUE with wound vac to forearm; sutures intact; no erythema Neuro: Other: still no mobility LUE General: patient oriented x3 Extrem: Other: decreased sensation/weakness left forearm General: Yes no pedal edema Objective Data Active Medications Acetaminophen (Acetaminophen 325 Mg Tablet) 650 mg PO Q4H PRN PRN Reason: fever or pain Last Admin: 09/09/23 09:33 Dose: 650 mg Documented By: RU Acetaminophen (Acetaminophen Supp 650 Mg Supp.Rect) 650 mg NM Q4H PRN PRN Reason: Fever Carvedilol (Carvedilol 3.125 Mg Tablet) 3.125 mg PO BID [facility]; Protocol Last Admin: 09/14/23 08:47 Dose: 3.125 mg Documented By: ABRAHAN Diphenhydramine HCl (Diphenhydramine Hcl 25 Mg Capsule) 25 mg PO Q6H PRN PRN Reason: itching Last Admin: 09/14/23 08:54 Dose: 25 mg Documented By: ABRAHAN Docusate Sodium (Docusate Sodium 100 Mg Capsule) 100 mg PO BID [facility] Last Admin: 09/14/23 08:47 Dose: 100 mg Documented By: ABRAHAN Gabapentin (Gabapentin 100 Mg Capsule) 200 mg PO TID [facility] Hydrocortisone (Hydrocortisone 1 % Cream 28.35 Gm Tube) 1 appl TOPICAL DAILY [facility]; Protocol Last Admin: 09/14/23 11:21 Dose: Not Given Documented By: ABRAHAN Non-Admin Reason: Patient Refused Hydromorphone HCl (Hydromorphone Hcl 2 Mg Tablet) 3 mg PO Q4H PRN PRN Reason: moderate pain Last Admin: 09/14/23 12:55 Dose: 3 mg Documented By: ABRAHAN Lactulose (Lactulose 20 Gm/30 Ml Solution) 20 gm PO TID [facility] Last Admin: 09/01/23 07:45 Dose: Not Given Documented By: YANNI Non-Admin Reason: diarrhea Lidocaine (Lidocaine 4 % Patch Adh..Patch) 1 patch TRANSDERMA DAILY [facility]; Protocol Last Admin: 09/14/23 08:47 Dose: 1 patch Documented By: ABRAHAN Morphine Sulfate (Morphine Sulfate Er 15 Mg Tablet.Er) 15 mg PO Q8H [facility] Stop: 10/14/23 07:59 Last Admin: 09/14/23 16:24 Dose: 15 mg Documented By: ABRAHAN Sodium Chloride (0.9 % Sodium Chloride Flush 3 Ml Syringe) 3 ml IVFLUSH QSHIFT [facility] Last Admin: 09/14/23 16:27 Dose: Not Given Documented By: ABRAHAN Non-Admin Reason: No Access Labs 09/14/23 06:24 09/14/23 06:24 Labs: Laboratory Results - last 24 hr 09/14/23 06:24 MCV 92.4 MCH 30.3 MCHC 32.8 RDW 14.3 Plt Count 580 H D MPV 10.7 Absolute Nucleated RBC 0.000 Nucleated RBC % (auto) 0.0 Anion Gap 15 Estim Creat Clear Calc 129.8 Estimated GFR > 60 Random Glucose 106 Calcium 9.7 Assessment and Plan (1) Peroneal neuropathy at knee: Status: Acute (2) Brachial plexopathy: Status: Acute Plan This is a 33 year old lady who presented with AMS from overdose developed left arm Compartment syndrome, rhabdo, aspiration, CMP requiring ICU admission and intubation with multiple surgeries to relieve the compartment, downgraded to the medical floor 08/21 now with ongoing intermittent fever. Compartment syndrome of left forearm s/p fasciotomy, multiple debridements ortho, vascular, wound team following, wound vac in place s/p IV vancomycin, and zosyn stopped due to likely cause of drug fever and leukopenia weaning narcotics, Benadryl for itching debridement and wound vac change 09/12/23 Fevers no fever since 09/09/23 in the morning has had intermittent fevers throughout hospitalization TLC removed, UA/cx negative, CT scan of abdomen/pelvis negative 09/01, atelectasis on CT - encourage incentive spirometry, no leukocytosis, HIV negative, tagged WBC scan negative repeat blood cultures from 09/07 neg after 24hrs LUE US, RLE negative for DVT zosyn and vanco stopped for concern of drug fever discussed with ortho>possibly caused from increase buildup of nectrotic tissue in between debridements Acute Normocytic anemia likely component of blood loss from multiple surgeries and acute illness s/p 3U RBCs H/H stable Leukopenia Resolved likely result of zosyn Acute 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 - likely secondary to prolonged compression Persistent left foot pain due to neuropathy, continue Neurontin - will increase dose of neurontin, lidocaine patch seen by sales and retail management recruiter> Night splint for foot drop(secondary to peroneal neuropathy d/t prolonged compression) to keep in dorsiflexion outpatient EMG studies continue PT/OT inpatient New onset acute Cardiomyopathy Echo on 08/17 showed EF 20% repeat Echo per ICU showed improvement echo consistent with takotsubo cardiomyopathy per cardiology Seen by cardiology>carvedilol and consider KENNETH-I if able to tolerate, so far bp has been soft rec repeat ECHO 4 weeks from initial echo - due around 09/15 Aspiration pneumonia completed course of IV Vanco and Meropenem Rhabdo toxic and mechanical secondary drug OD and prolonged downtime CPK 35,763 on admission, trended down with IVF depression seen by psych - recommend to start lexapro Elevated LFTs LFTs have normalized Acute hypokalemia resolved with replacement Constipation Laxatives prn; hold for diarrhea Drug abuse Addiction team following New onset seizure Neurology eval one time incident, no need to treat, no recurrent seizures noted DVT PPx- SCDs - due to ongoing interventions for left arm. has been up to chair daily attending - dr. Israel TAYLOR lives at home with family, PT continues to rec acute rehab upon discharge reason for continued hospitalization: ongoing surgical interventions Quality Stroke Does the patient have a stroke diagnosis?: No VTE Prior VTE?: No VTE Risk Level:: Medical - moderate - high VTE Device Contraindication: N/A - Device Ordered VTE Drug Contraindication: Treatment Not Indicated
[2023-09-15 03:40] VITALS: BP 126/74; PULSE 93; RESP 20; TEMP 36.3; O2SAT 95
--- NOTE | 2023-09-15 07:00 | CA_ITS ---
Transthoracic Echocardiogram Patient (Last, First, Middle): Evita Valverde M Gender: Female Date of : 1990 Age: 33 Procedure Date: 09/15/2023 Procedure Type: Transthoracic Echocardiogram [place] [facility] [place]: 167.64 cm Weight: 82.1 kg BSA: 1.92 m2 Heart Rate: 85 bpm BP: 126 / 74 mmHg District Ranger: LUCRETIA Referring MD: Ping Ramon NP Symptoms: Stress CMP Study Quality: Adequate/w Contrast ECG Rhythm: Sinus Conclusions: - Normal left ventricular cavity size. There is mildly increased left ventricular wall thickness. The left ventricular systolic function is low normal. The visually estimated ejection fraction is between 50-55%. Findings Procedure Information Contrast agent, definity, is being given per protocol without apparent complications. Left Ventricle Normal left ventricular cavity size. There is mildly increased left ventricular wall thickness. The left ventricular systolic function is low normal. The visually estimated ejection fraction is between 50-55%. There is no evidence of regional wall motion abnormalities. Diastolic function is indeterminate on the basis of available data. Reduced global longitudinal strain -13%. Right Ventricle Normal right ventricular cavity size and systolic function. Prior Study Comparison Changes noted compared to prior study. EF 50-55% (was severely reduced before). Measurements 2D Linear Measurements IVSd: 1.30 0.6-0.9/0.6-1.0 cm LVIDd: 4.70 3.9-5.3/4.2-5.9 cm LVIDd Index: 2.60 2.4-3.2/2.2-3.1 cm/m2 LVIDs: 3.20 2.0-3.6 cm LVPWd: 1.00 0.7-1.1 cm LV Mass: 274.58 67-162/88-224 g LV Mass Index: 143.01 43-95/49-115 g/m2 LVOT Diam: 1.90 3.0+(-)1.3 cm 2D Systolic Function EF 4C: 43.10 >55% EF 2C: 55.80 >55% EF BiP: 50.30 >55% LVOT LVOT Pk Jose Elias: 0.99 LVOT Mn Jose Elias: 0.69 LVOT VTI: 0.16 LVOT Pk Grad: 4.00 LVOT Mn Grad: 2.00 LVOT Diam: 1.90 LVOT Area: 2.84 Updated in Other Vendor System with Status of Final Kristian Velasquez MD electronically signed on 09/15/2023 11:57:10 AM with status of Final
[2023-09-15 07:53] VITALS: BP 130/89; PULSE 94; RESP 20; TEMP 36.2; O2SAT 94
--- NOTE | 2023-09-15 08:44 | PM.PNORT ---
Subjective Subjective Date of Service: 09/15/23 Principal diagnosis: left brachial plexus neuropathy and compartment syndrome forearm Interval history: Left forearm pain managed s/p irrigation and debridement with excision necrotic muscle left forearm with partial delayed primary closure and wound vac change 09/12/[address] No overnight events Patient is resting comfortably in bed - has some increased pain in the LLE No additional complaints Physical Exam Vital Signs: Vital Signs: Last Vital Signs Temp 97.2 F 09/15/23 07:53 Pulse 94 09/15/23 07:53 Resp 20 09/15/23 07:53 BP 130/89 09/15/23 07:53 Pulse Ox 94 09/15/23 07:53 O2 Del Method Room Air 09/15/23 07:53 O2 Flow Rate 6 09/08/23 15:25 FiO2 35 08/19/23 07:58 BMI result Body Mass Index 29.3 Extrem: Other: left forearm wound vac holding suction arm and forearm soft no motion except triceps Procedures Date of Service Date of Service: 09/15/23 Progress Note: A&P Assessment and plan (1) Brachial plexopathy: Status: Acute (2) Compartment syndrome of forearm: Status: Acute Assessment and Plan: Stable with no motor function sensation improving over dorsum of hand but dense numbness over volar forearm Wound vac in place with appropriate suctioning Pain management Need for continued inpatient stay: uncontrolled pain, need for further wound management Time Spent With Patient Time: Total time managing care of this patient today ____ minutes. Quality Stroke Does the patient have a stroke diagnosis?: No VTE Prior VTE?: No VTE Risk Level:: Medical - moderate - high VTE Device Contraindication: N/A - Device Ordered VTE Drug Contraindication: Treatment Not Indicated
[2023-09-15] MEDS: Acetaminophen 325 MG TABLET 650 MG PO (09:09)
[2023-09-15] MEDS: Escitalopram Oxalate 5 MG TABLET PO (09:09)
[2023-09-15] MEDS: diphenhydrAMINE HCL 25 MG CAPSULE PO (09:09)
[2023-09-15] MEDS: HYDROmorphone HCl 2 MG TABLET 3 MG PO (09:09)
[2023-09-15] MEDS: Gabapentin 100 MG CAPSULE 200 MG PO (09:09)
[2023-09-15] MEDS: Docusate Sodium 100 MG CAPSULE PO (09:10)
[2023-09-15] MEDS: carvediloL 3.125 MG TABLET PO (09:10)
[2023-09-15] MEDS: Morphine Sulfate ER 15 MG TABLET.ER PO ×2 (09:10→15:33)
[2023-09-15] MEDS: 0.9 % Sodium Chloride Flush 3 ML SYRINGE IVFLUSH ×2 (09:10→15:34)
[2023-09-15] MEDS: Lidocaine 4 % Patch ADH..PATCH 1 PATCH TRANSDERMA (09:10)
[2023-09-15] MEDS: Albuterol Sulfate 90 MCG 8 GM INHALER 2 PUFF INHALE (09:42)
--- NOTE | 2023-09-15 10:30 | MHC.CM.PN ---
Addendum entered by Daina Gonzales 09/15/23 12:51: All 3 acute rehabs in our area have declined to accept the pt. Original Note: EMR reviewed and per MD rounds, pt is not medically cleared for D/C but is getting closer to being ready, per hospitalist the pt will be getting a wound vac change at bedside today by the surgeon to see how well she can tolerate it. This CM met with pt to discuss D/C plan and she states she does not want to go to rehab, but would like to go home with [facility]. CM will continue to follow for D/C.
[2023-09-15 11:21] VITALS: BP 130/89; PULSE 94; O2SAT 94
[2023-09-15 11:35] VITALS: BP 125/85; PULSE 82; RESP 20; TEMP 36.2; O2SAT 94
--- NOTE | 2023-09-15 12:46 | HO.PM.IMPN ---
Subjective Subjective Date of Service: 09/15/23 Interval History: seen and examined this morning follow up for left arm compartment syndrome/infection ongoing left leg pain Review of Systems Review of Systems: Yes all other systems are reviewed and are negative Constitutional Constitutional: Denies chills and Denies fever(s) Cardiovascular Cardiovascular: Denies chest pain, Denies palpitations and Denies dyspnea Respiratory Respiratory: Denies cough and Denies dyspnea Gastrointestinal Gastrointestinal: Denies abdominal pain, Denies nausea and Denies vomiting Endocrine Endocrine: Denies palpitations Physical Exam Vital Signs: Vital Signs: Last Vital Signs Temp 97.1 F 09/15/23 11:35 Pulse 82 09/15/23 11:35 Resp 20 09/15/23 11:35 BP 125/85 09/15/23 11:35 Pulse Ox 94 09/15/23 11:35 O2 Del Method Room Air 09/15/23 11:35 O2 Flow Rate 6 09/08/23 15:25 FiO2 35 08/19/23 07:58 BMI result Body Mass Index 29.3 Const: General: cooperative, comfortable, no acute distress, alert and awake Nutritional Appearance: average body habitus and overweight Orientation/consciousness: patient oriented x3 Resp: Effort & Inspection: normal respiratory effort, able to speak in complete sentences, no respiratory distress and no use of accessory muscles Auscultation: clear to auscultation bilaterally Cardio: Rate: regular rate and tachycardic GI: Other: +BS Inspection: No distended Palpation (GI): Soft to palpation and nontender Skin: Other: LUE with wound vac to forearm; sutures intact; no erythema Neuro: Other: still no mobility LUE General: patient oriented x3 and CN's II-XI intact bilaterally Extrem: Other: decreased sensation/weakness left forearm General: Yes no pedal edema Objective Data Active Medications Acetaminophen (Acetaminophen 325 Mg Tablet) 650 mg PO Q4H PRN PRN Reason: fever or pain Last Admin: 09/15/23 09:09 Dose: 650 mg Documented By: YANNI Acetaminophen (Acetaminophen Supp 650 Mg Supp.Rect) 650 mg MD Q4H PRN PRN Reason: Fever Albuterol Sulfate (Albuterol Sulfate 90 Mcg 8 Gm Inhaler) 2 puff INHALE RQ4H PRN PRN Reason: Shortness of Breath/Wheezing Last Admin: 09/15/23 09:42 Dose: 2 puff Documented By: YANNI Carvedilol (Carvedilol 3.125 Mg Tablet) 3.125 mg PO BID [facility]; Protocol Last Admin: 09/15/23 09:10 Dose: 3.125 mg Documented By: YANNI Diphenhydramine HCl (Diphenhydramine Hcl 25 Mg Capsule) 25 mg PO Q6H PRN PRN Reason: itching Last Admin: 09/15/23 09:09 Dose: 25 mg Documented By: YANNI Docusate Sodium (Docusate Sodium 100 Mg Capsule) 100 mg PO BID [facility] Last Admin: 09/15/23 09:10 Dose: 100 mg Documented By: YANNI Escitalopram Oxalate (Escitalopram Oxalate 5 Mg Tablet) 5 mg PO DAILY [facility] Last Admin: 09/15/23 09:09 Dose: 5 mg Documented By: YANNI Gabapentin (Gabapentin 300 Mg Capsule) 300 mg PO TID [facility] Hydrocortisone (Hydrocortisone 1 % Cream 28.35 Gm Tube) 1 appl TOPICAL DAILY [facility]; Protocol Last Admin: 09/15/23 09:15 Dose: Not Given Documented By: YANNI Non-Admin Reason: Patient Refused Hydromorphone HCl (Hydromorphone Hcl 2 Mg Tablet) 3 mg PO Q4H PRN PRN Reason: moderate pain Last Admin: 09/15/23 09:09 Dose: 3 mg Documented By: YANNI Lactulose (Lactulose 20 Gm/30 Ml Solution) 20 gm PO TID [facility] Last Admin: 09/01/23 07:45 Dose: Not Given Documented By: YANNI Non-Admin Reason: diarrhea Lidocaine (Lidocaine 4 % Patch Adh..Patch) 1 patch TRANSDERMA DAILY [facility]; Protocol Last Admin: 09/15/23 09:10 Dose: 1 patch Documented By: YANNI Morphine Sulfate (Morphine Sulfate Er 15 Mg Tablet.Er) 15 mg PO Q8H [facility] Stop: 10/14/23 07:59 Last Admin: 09/15/23 09:10 Dose: 15 mg Documented By: YANNI Sodium Chloride (0.9 % Sodium Chloride Flush 3 Ml Syringe) [facility] Last Admin: 11/03/23 09:10 Dose: 3 ml Documented By: YANNI Labs 09/14/23 06:24 09/14/23 06:24 Assessment and Plan (1) Peroneal neuropathy at knee: Status: Acute (2) Brachial plexopathy: Status: Acute Plan This is a 33 year old lady who presented with AMS from overdose developed left arm Compartment syndrome, rhabdo, aspiration, CMP requiring ICU admission and intubation with multiple surgeries to relieve the compartment, downgraded to the medical floor 08/21 now with ongoing intermittent fever. Compartment syndrome of left forearm s/p fasciotomy, multiple debridements ortho, vascular, wound team following, wound vac in place s/p IV vancomycin, and zosyn stopped due to likely cause of drug fever and leukopenia weaning narcotics, Benadryl for itching debridement and wound vac change 09/12/23 - plan for change today Fevers no fever since 09/09/23 in the morning has had intermittent fevers throughout hospitalization TLC removed, UA/cx negative, CT scan of abdomen/pelvis negative 09/01, atelectasis on CT - encourage incentive spirometry, no leukocytosis, HIV negative, tagged WBC scan negative repeat blood cultures from 09/07 neg after 24hrs LUE US, RLE negative for DVT zosyn and vanco stopped for concern of drug fever discussed with ortho>possibly caused from increase buildup of nectrotic tissue in between debridements Acute Normocytic anemia likely component of blood loss from multiple surgeries and acute illness s/p 3U RBCs H/H stable Leukopenia Resolved likely result of zosyn Acute 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 - likely secondary to prolonged compression Persistent left foot pain due to neuropathy, continue Neurontin - will increase dose of neurontin, lidocaine patch seen by foot piece assembler> Night splint for foot drop(secondary to peroneal neuropathy d/t prolonged compression) to keep in dorsiflexion outpatient EMG studies continue PT/OT inpatient New onset acute Cardiomyopathy Echo on 08/17 showed EF 20% echo consistent with takotsubo cardiomyopathy per cardiology - now with recovered EF, repeat ECHO 09/15 with EF 50-55% Seen by cardiology>carvedilol and consider KENNETH-I if able to tolerate, so far bp has been soft Aspiration pneumonia completed course of IV Vanco and Meropenem Rhabdo toxic and mechanical secondary drug OD and prolonged downtime CPK 35,763 on admission, trended down with IVF depression seen by psych - recommend to start lexapro 5mg daily Elevated LFTs LFTs have normalized Acute hypokalemia resolved with replacement Constipation Laxatives prn; hold for diarrhea Drug abuse Addiction team following New onset seizure Neurology eval one time incident, no need to treat, no recurrent seizures noted DVT PPx- SCDs - due to ongoing interventions for left arm. has been up to chair daily attending - Dr. Catrachito TAYLOR lives at home with family, PT continues to rec acute rehab upon discharge reason for continued hospitalization: ongoing surgical interventions Quality Stroke Does the patient have a stroke diagnosis?: No VTE Prior VTE?: No VTE Risk Level:: Medical - moderate - high VTE Device Contraindication: N/A - Device Ordered VTE Drug Contraindication: Treatment Not Indicated
--- NOTE | 2023-09-15 13:42 | MHC.CM.PN ---
Addendum entered by Arelis Phillip 09/15/23 13:43: This auth is effective until 10/07 Original Note: RADHA/Radha 3M home wound vac prior auth Number : [id number]
--- NOTE | 2023-09-15 15:03 | PM.DS ---
DS: Providers Provider Date of Service: 09/15/23 Date of admission: 08/16/23 09:37 Primary care physician: Vivian Skinner MD Consults: 08/17/23 14:06 Consult to Orthopedics Routine Consulting Provider: [facility] Reason for consultation: LUE Compartment Syndrome Has provider been notified: Yes 08/18/23 11:35 Consult to Vascular Surgery Stat Consulting Provider: Pardeep Douglass Reason for consultation: Post op compartment synd L arm- diminished pulses Has provider been notified: No 08/18/23 13:13 Consult to Wound Care Stat Consulting Provider: Beatrice Zabala Reason for consultation: wound vac in place, need new container please; nearly full 08/20/23 15:40 Addiction Medicine Routine Consulting Provider: Addiction Covering Reason for consultation: Overdose , interested in methadone. 08/21/23 12:17 Consult to Neurology Routine Consulting Provider: [facility] Reason for consultation: new onset seizure post overdose, traumatic peripheral neuropathy inj. 08/21/23 12:18 Consult to Cardiology Routine Consulting Provider: [facility] Cardiovascular Services Reason for consultation: CMP 2/2 overdose , for establish of care and med advice 08/24/23 09:04 Consult to Physiatry Routine Consulting Provider: Mini Watkins Reason for consultation: LLE/LUE weakness Has provider been notified: Yes 08/26/23 12:30 Consult to Infectious Diseases Routine Consulting Provider: [facility] Infectious Disease Reason for consultation: ?infected compartment syndrome 08/30/23 13:51 Consult to Psychiatry Routine Consulting Provider: Psych Covering Reason for consultation: depression, (not close to discharge) DS: Diagnosis Discharge Diagnosis (1) Peroneal neuropathy at knee: Status: Acute (2) Brachial plexopathy: Status: Acute DS: Summary Hospital Course Hospital Course: 08/16/23 ~6am: Patient comes to the emergency room via EMS. According to EMS, patient was found confused, questionably just had a seizure. Patient known to have history of IV drug use, recently overdosed 5 days ago. Patient has no history of seizures. Bring to EMS, they found her posturing, they gave her 3 mg of IV Versed. When patient arrived to emergency room, patient breathing on her own, altered, pinpoint pupils, seems postictal. Patient unable to give any history. Intubated and tranferred to ICU Chief Complaint: Toxic encephalopathy from cocaine and fentanyl 33-year-old female known polysubstance abuser just released from the hospital 2 days earlier apparently was paid a visit by boyfriend and next thing the parents know she is unresponsive on the floor still was breathing brought in with same presentation intubated extensive what appears to be aspiration pneumonia on the left side but possible damage because the toxicology is positive for cocaine and fentanyl and opiates and I did a bedside echo and it showed that she had a very severe myopathy appearing like a Takotsubo and therefore probably consistent with the cocaine and I explained to the parents that it could be permanent or could improved to a degree and remains to be seen over time but the troponin was positive but modest yet the CPK was massively elevated 35,000 so clearly there was a rhabdomyolysis And in addition to her altered state of consciousness we she was markedly tachycardic with rates up to 140 all sinus tach and and certainly in large part vena because of the profound myopathy with at best a 20% ejection fraction part of the probably just driven primarily by the cocaine but blood pressures were marginal at 90-100 systolic but with with extensive myoglobinuria we was supporting the no blood pressure and urine output in the face of acute stage III renal insufficiency by giving her IV normal saline In addition a presentation was witnessed to have eyes and head deviated to the right along with posturing of the right upper extremity implying the potential for seizure activity emanating from left hemisphere but too sick to send down for advanced imaging at this point Cerebrospinal fluid was clean there was nothing here of an infectious nature 08/17/23 Ortho consulted and taken to OR for compartment syndrome left forearm. Fasciotomies performed. serial debridement of necromitc tissue performed 08/18; 08/20. Extubated 08/20 : 33-year-old female presented unresponsive requiring intubation was encephalopathic based on cocaine and fentanyl and as a result of the position that she was in developed a left upper extremity compartment syndrome with diminished distal pulses and no extensive nerve involvement and she required an emergency fasciotomy she still remains dysfunctional it in terms of most the arm being numb with a diminished motor capability but nonetheless viable but there was extensive muscle damage with 35,000 CPK secondary acute renal failure with creatinine is over 3 which have completely normalized at this point and she has had at least 4 subsequent OR debridements of necrotic muscle in that left upper extremity but the rhabdomyolysis is resolving she initially had acute myocarditis / cardiomyopathy with a 20% ejection fraction with extensive akinesis and that is now recovering her ejection fraction is probably at least 35-40% and improving and from a lung standpoint she had extensive left lung consolidation there probably was some degree of lung infarct but definitely extensive aspiration pneumonitis she has now since yesterday extubated with dramatic improvement her respiratory insufficiency initial tachycardic heart rates in sinus rhythm were about 150 she now has a resting heart rates of 60 resolving cardiomyopathy resolving respiratory insufficiency completely normalized renal function and limb salvage through fasciotomy of that left upper extremity followed by Dr. Long Transferred out of ICU to hospitalist service 08/21. Cardiology 08/22: 33-year-old female who has been diagnosed with cardiomyopathy with EF of 20% on background of aspiration, drug overdose and substance abuse. Clinically not in heart failure. Echocardiography appears to be consistent with mid ventricular takotsubo cardiomyopathy. Add carvedilol 3.125 mg twice a day. If he tolerates that then low-dose KENNETH-inhibitor 2.5 mg lisinopril should be added. We will repeat her echocardiogram in couple of months. Overall stable from cardiovascular point of view to go home. 08/24: Aspiration pneumonia treated with Vanco and Meropenem cultures negative now Acute hypokalemia resolved with replacement 08/24 seen by physiatry Left upper extremity weakness most likely from prolonged compression. Currently appears to have panplexus, probably because of swelling. Will be able to determine better once swelling subsides and wound heals. Recommend passive range of motion with PT as long as orthopedics allows. Wait for wound to heal to do EMG. (2) Peroneal neuropathy at knee: Given footdrop and distribution of her pain/numbness, suspect left lower extremity weakness is from peroneal neuropathy, most likely at the fibula, most likely due to prolonged compression. Recommend night splints to keep left foot in dorsiflexion. Consider AFO. PT to try edge of bed exercises, and to try standing with assistance. We can do EMG as early as 2nd week post injury, once stable to come down to EMG lab. Or can be done outpatient as well. 09/01: seen by ID- concerned about drug fever. abx changed with no improvement. Serial debridements of arm also without improvement. 09/08 tagged WBC scan unremarkable. Abx stopped and fevers resolved. Ortho: Surgeries : 08/17, 08/18, 08/20, 08/22, 08/25, 08/28, 08/30, 09/05, 09/08, 09/12 Time Attestation Discharge coordination time: Greater than 30 minutes Quality: Safe Use of Opioids Does Pt have an Active Cancer Diagnosis on the Problem List?: No Quality: Stroke Does the patient have a stroke diagnosis?: No Physical Exam Vital Signs: Vital Signs: Last Vital Signs Temp 97.1 F 09/15/23 11:35 Pulse 82 09/15/23 11:35 Resp 20 09/15/23 11:35 BP 125/85 09/15/23 11:35 Pulse Ox 94 09/15/23 11:35 O2 Del Method Room Air 09/15/23 11:35 O2 Flow Rate 6 09/08/23 15:25 FiO2 35 08/19/23 07:58 BMI result Body Mass Index 29.3 Discharge Plan Discharge Anticipated Discharge Date/Time: 09/15/23 14:59 Patient Disposition: Home, Self-Care Discharge Diagnosis: Left brachial plexopathy Left peroneal neuropathy Left forearm compartment syndrome Open wound left forearm Referrals: Vivian Skinner MD [Primary Care Provider] - 1 Week Kristian Velasquez MD [Physician] - 1 Week Discharge Medications: New hydromorphone 2 mg Tablet 3 mg PO Q4H PRN (Reason: moderate pain) 7 Days Qty: 63 0RF Rx Instructions: Partial Fill upon patient request. docusate sodium 100 mg Capsule 100 mg PO BID 14 Days Qty: 28 0RF hydrocortisone 1 % Cream 1 appl topical DAILY 30 Days Qty: 1 0RF Protocol: Apply to: Apply to: back acetaminophen 325 mg Tablet 650 mg PO Q4H PRN (Reason: fever or pain) 30 Days Qty: 240 1RF escitalopram oxalate 5 mg Tablet 5 mg PO DAILY 30 Days Qty: 30 0RF carvedilol 3.125 mg Tablet 3.125 mg PO BID 30 Days Qty: 60 0RF Protocol: Hold for SBP/HR < HOLD for SBP < : 90 HOLD for HR < : 60 diphenhydramine HCl 25 mg Capsule 25 mg PO Q6H PRN (Reason: itching) 30 Days Qty: 120 0RF lidocaine [Lidocaine Pain Relief] 4 % Adhesive Patch,Medicated 1 patch transdermal DAILY 30 Days Qty: 30 0RF Protocol: Apply to: Apply to: left leg albuterol sulfate [Ventolin HFA] 90 mcg/actuation Hfa Aerosol Inhaler 2 puff inhalation RQ4H PRN (Reason: Shortness Of Breath/Wheezing) 30 Days Qty: 1 0RF gabapentin 300 mg Capsule 300 mg PO TID 30 Days Qty: 90 0RF No Action No Known Home Meds Discharge Orders: Discharge Order (Routine); Ordered 09/15/23 Ordered By: Devang Long Diet: Advance to usual diet Activity on Discharge: As tolerated Stand Alone Forms: Patient Portal Discharge page Care Plan Goals: Restore function of left upper and left lower extremity Health Concerns: None Plan of Treatment: Left upper extremity wound vac in place-keep on at all times -if there are concerns for the unit not functioning / sanctioning please contact Orthopedic office at [phone] Use Left arm resting splint while resting. Perform hand , wrist and elbow ROM to prevent stiffness Left lower extremity - night splint with sleeping to prevent foot drop -perofrm ankle ROM exercises -Weight bear as tolerated Follow Up with Orthopedics on 09/18/23 Assessment: as above
[2023-09-15 15:24] VITALS: BP 121/77; PULSE 80; RESP 16; TEMP 36.9; O2SAT 96
[2023-09-15] MEDS: Gabapentin 300 MG CAPSULE PO (15:33)
--- NOTE | 2023-09-15 15:53 | MHC.CM.PN ---
D/C plan: per MD pt will D/C home and will come into the office twice weekly for wound vac change and follow up in wound clinic. Pt will also get outpatient PT/OT. Pts mother to transport her home.
--- NOTE | 2023-09-24 14:26 | P.CDIM_ITS ---
PROVIDER RESPONSE TEXT: To clarify, the appropriate diagnosis supported by the clinical indicators: Acute blood loss anemia: probable QUERY TEXT: PHYSICIAN'S DOCUMENTATION REQUEST Date of Query: 09/13/2023 08:49 AM EDT Patient Name: Evita Valverde Admit Date: 08/16/2023 Dear Ping Ramon, A review of the medical record indicates additional documentation may be needed. Please review below and update the documentation accordingly. Clinical Indicators: PN: anemia, likely component of blood loss from multiple surgeries and acute illness H/H 7.1/21.5 BP 92/56 3 units PRBC transfused Based on the above, could you clarify which of the following is the most likely type of anemia you ar e evaluating, treating, and/or monitoring? Acute blood loss anemia suspected, possible, probable etc. Other please specify Other (explain) Clinically unable to determine (explain) Thank you, Theresa Hernandes, CCS, CDIS Use of terms such as suspected, likely, concern for, or probable (associated with a specific diagnosi s that is being evaluated, monitored, or treated as if it exists) are acceptable and can be coded in the inpatient se tting, when documented at the time of discharge. Please use your independent medical judgment in providing your response. THIS QUERY IS PART OF THE PERMANENT MEDICAL RECORD
--- NOTE | 2023-10-23 16:02 | P.OP_ITS ---
Operative Note Operative Note Date of Service: 08/28/23 Narrative: Date of Service: 08/28/23 Pre-op diagnosis: left forearm compartment syndrome Post-op diagnosis: same Procedure: irrigation and debridement left forearm Implants: none Surgeon: Devang Long MD Anesthesia: Natalie Was an Power Sewing Machine Operator used for this Procedure?: No Estimated blood loss (mL): 75 IV fluids (mL): 500 Pathology: none sent Condition: stable Disposition: PACU Procedure in detail: Patient was brought to the operative room placed supine on the hand table and prepped and draped in standard sterile fashion. Time-out called ever purpose I procedure proper surgeon. I began by removing the wound VAC sponge in opening up the incision. There was purulence in the volar compartment. The skin and subcutaneous tissue was bleeding circumferentially. 90% of the superficial volar and deep volar compartment was necrotic. This necrotic tissue was identified and removed. It was assessed with electrical stimulation and visual inspection and tissue that was felt nonviable I was removed with Metzenbaum s cissors. Care was taken to avoid the neurovascular bundle. The pronator was also incised with 10% approximately left. Some of the superficial aspect of the brachioradialis was nonviable and excised but there was tissue that responded to electrical stimulation in the brachioradialis and distally among 1 or 2 of the deep and superficial flexors but proximally these were nonviable. I removed any nonviable tissue. There was firmness in the distal aspect of the upper arm but the biceps and brachialis appeared viable and did respond to electrical stimulation . Once I had removed all the nonviable tissue I irrigated copiously. I left approximately 3 cm open in the mid proximal aspect of the incision and over the central aspect of the volar forearm to apply a wound VAC sponge which was then covered with a probe vena vacuum assisted sponge. This held suction and was applied without difficulty. Patient was Awakened from sedation brought to the recovery room in stable condition. There were no known complications.
--- NOTE | 2023-10-23 16:12 | P.OP_ITS ---
Operative Note Operative Note Date of Service: 08/30/23 Narrative: Date of Service: 08/30/23 Pre-op diagnosis: left fore arm compartment syndrome Post-op diagnosis: same Procedure: irrigation and debridement left forearm wound vac change left forearm Surgeon: Devang Long MD Anesthesia: GLMA Was an Rehabilitation Physician used for this Procedure?: Yes Rehabilitation Physician: Mary Beth Billings Estimated blood loss (mL): 50 IV fluids (mL): 500 Pathology: none sent Condition: stable Disposition: PACU Procedure in detail: Patient was brought to the operative room placed supine on the hand table and prepped and draped in standard sterile fashion. Time-out called ever purpose I procedure proper surgeon. I began by removing the wound VAC sponge in opening up the incision. There was decreased purulence in the volar compartment but still necrotic non viable tissue especially along the ulnar border of the proximal superficial and deep volar compartment. I had to open up proximally as there was increased firmness in the antecubital fossa. The skin and subcutaneous tissue was bleeding circumferentially. 90% of the superficial volar and deep volar compartment was necrotic and I remomved more necrotic tissue. The finger flexors were non viable and the necrotic muscle was removed and care was taken to preserve the ulnar and radial neurovascular bundle. The pronator was partially intact. The necrotic tissue was identified and assessed with electrical stimulation and visual inspection and tissue that was felt nonviable was removed with Metzenbaum scissors. Some of the superficial aspect of the brachioradialis was nonviable and excised but there was tissue that responded to electrical stimulation in the brachioradialis distally There was continued firmness in the distal aspect of the upper arm but the biceps and brachialis appeared viable and did respond to electrical stimulation Once I had removed all the nonviable tissue I irrigated copiously and left approximately 5 cm open in the proximal aspect of the incision and over the central aspect of the volar forearm to apply a wound VAC sponge which was then covered with a vacuum assisted sponge. This held suction and was applied without difficulty. Patient was Awakened from sedation brought to the recovery room in stable condition. There were no known complications. Patient will be started on broad-spectrum antibiotics. A culture was obtained although given that she has been on antibiotics it will likely be unhelpful.
--- NOTE | 2023-10-23 16:20 | W.PM.OPN ---
Operative Note Operative Note Date of Service: 09/05/23 Narrative: Date of Service: 09/05/23 Pre-op diagnosis: left forearm open wound Post-op diagnosis: same Procedure: Irrigation and debridement left forearm WOund vac placement Surgeon: Devang Long MD Anesthesia: GLMA Was an Armored Machine Operator used for this Procedure?: Yes Armored Machine Operator: Zackary Galvez Estimated blood loss (mL): 25 IV fluids (mL): 500 Pathology: none sent Condition: stable Disposition: PACU Procedure in detail: Patient was brought to the operative room placed supine on the hand table and prepped and draped in standard sterile fashion. Time-out called ever purpose I procedure proper surgeon. I began by removing the wound VAC sponge. There was decreased purulence in the volar compartment but still necrotic non viable tissue especially along the ulnar border of the proximal superficial and deep volar compartment. 90% of the superficial volar and deep volar compartment was necrotic and I remomved more necrotic tissue. The finger flexors were non viable and the necrotic muscle was removed and care was taken to preserve the ulnar and radial neurovascular bundle. The pronator was partially intact. The necrotic tissue was identified and assessed with electrical stimulation and visual inspection and tissue that was felt nonviable was removed with Metzenbaum scissors. Some of the superficial aspect of the brachioradialis was nonviable and excised but there was tissue that responded to electrical stimulation in the brachioradialis distally. There was continued firmness in the distal aspect of the upper arm but the biceps and brachialis appeared viable and did respond to electrical stimulation. Once I had removed all the nonviable tissue I irrigated copiously and left approximately 5 cm open in the proximal aspect of the incision and over the central aspect of the volar forearm to apply a wound VAC sponge which was then covered with a vacuum assisted sponge. This held suction and was applied without difficulty. Patient was Awakened from sedation brought to the recovery room in stable condition. There were no known complications.
--- NOTE | 2023-10-23 16:22 | W.PM.OPN ---
Operative Note Operative Note Narrative: Procedure in detail: Patient was brought to the operative room placed supine on the hand table and prepped and draped in standard sterile fashion. Time-out called ever purpose I procedure proper surgeon. I began by removing the wound VAC sponge in opening up the incision. There was decreased purulence in the volar compartment but still necrotic non viable tissue especially along the ulnar border of the proximal superficial and deep volar compartment. I had to open up proximally as there was increased firmness in the antecubital fossa. The skin and subcutaneous tissue was bleeding circumferentially. 90% of the superficial volar and deep volar compartment was necrotic and I remomved more necrotic tissue. The finger flexors were non viable and the necrotic muscle was removed and care was taken to preserve the ulnar and radial neurovascular bundle. The pronator was partially intact. The necrotic tissue was identified and assessed with electrical stimulation and visual inspection and tissue that was felt nonviable was removed with Metzenbaum scissors. Some of the superficial aspect of the brachioradialis was nonviable and excised but there was tissue that responded to electrical stimulation in the brachioradialis distally There was continued firmness in the distal aspect of the upper arm but the biceps and brachialis appeared viable and did respond to electrical stimulation Once I had removed all the nonviable tissue I irrigated copiously and left approximately 5 cm open in the proximal aspect of the incision and over the central aspect of the volar forearm to apply a wound VAC sponge which was then covered with a vacuum assisted sponge. This held suction and was applied without difficulty. Patient was Awakened from sedation brought to the recovery room in stable condition. There were no known complications.
--- NOTE | 2023-11-15 16:10 | PM.OP ---
Brief Operative Note Date of Service: 09/08/23 Pre-op diagnosis: left arm compartment synsrome Procedure: I and D left arm Surgeon: Devang Long MD Anesthesia: GETA Was an Sheet Metal Mechanic used for this Procedure?: No Estimated blood loss (mL): 10 Pathology: none sent Condition: stable Disposition: PACU
--- NOTE | 2023-11-15 16:12 | W.PM.OPN ---
Operative Note Operative Note Date of Service: 09/08/23 Narrative: Date of Service: 09/08/23 Pre-op diagnosis: left arm compartment synsrome Procedure: I and D left arm Surgeon: Devang Long MD Anesthesia: GETA Was an Economic Forecaster used for this Procedure?: No Estimated blood loss (mL): 10 Pathology: none sent Condition: stable Disposition: PACU Procedure in detail: Patient was brought to the operative room placed supine on the hand table and prepped and draped in standard sterile fashion. Time-out called ever purpose I procedure proper surgeon. I began by removing the wound VAC sponge. There was decreased purulence in the volar compartment but still necrotic non viable tissue especially along the ulnar border of the proximal superficial and deep volar compartment. 90% of the superficial volar and deep volar compartment was necrotic and I removed more necrotic tissue. The wound was cleaner assistant than prior and there was less necrotic tissue. The finger flexors were non viable and any remaining necrotic muscle was removed and care was taken to preserve the ulnar and radial neurovascular bundle. The pronator was partially intact. Some of the superficial aspect of the brachioradialis was nonviable and excised but there was tissue that responded to electrical stimulation in the brachioradialis distally. There was continued firmness in the distal aspect of the upper arm but the biceps and brachialis appeared viable and did respond to electrical stimulation. Once I had removed all the nonviable tissue I irrigated copiously and left approximately 5 cm open in the proximal aspect of the incision and over the central aspect of the volar forearm to apply a wound VAC sponge which was then covered with a vacuum assisted sponge. This held suction and was applied without difficulty. Patient was Awakened from sedation brought to the recovery room in stable condition. There were no known complications.
== END 2023-09-15 16:31 | disposition home or self-care (01) | DRG 793 ==
LOC: HO.ED 08:26 → HO.EDOVER 09:44 → HO.ICU 10:58 → HO.IMC 08-20 15:22
PROVIDERS: Anesthesiology; Emergency Medicine; Hospitalist; Internal Medicine; Nurse Practitioner Acute Care; Nurse Practitioner Family; Orthopaedic Surgery; Physician Assistant Medical; Registered Nurse Community Health; Student in an Organized Health Care Education/Training Program; Admitting Provider Internal Medicine Cardiovascular Disease; Emergency Provider Emergency Medicine; PCP Internal Medicine; Visit Provider Physician Assistant Medical
PROC: 0KNB0ZZ Release Left Lower Arm and Wrist Muscle, Open Approach (ICD-10-PCS; principal; 2023-08-17 15:00)
PROC: 0KBB0ZZ Excision of Left Lower Arm and Wrist Muscle, Open Approach (ICD-10-PCS; principal; 2023-08-18 13:50)
DX: T40.5X1A Poisoning by cocaine, accidental (unintentional), initial encounter (principal); J69.0 Pneumonitis due to inhalation of food and vomit; T79.A12A Traumatic compartment syndrome of left upper extremity, initial encounter; N17.9 Acute kidney failure, unspecified; F05 Delirium due to known physiological condition; I42.9 Cardiomyopathy, unspecified; D62 Acute posthemorrhagic anemia; G54.0 Brachial plexus disorders; M62.82 Rhabdomyolysis; I96 Gangrene, not elsewhere classified; I51.4 Myocarditis, unspecified; X58.XXXA Exposure to other specified factors, initial encounter; S14.3XXA Injury of brachial plexus, initial encounter; K59.00 Constipation, unspecified; E87.6 Hypokalemia; I25.5 Ischemic cardiomyopathy; F17.210 Nicotine dependence, cigarettes, uncomplicated; F19.10 Other psychoactive substance abuse, uncomplicated; Z71.6 Tobacco abuse counseling; Z20.822 Contact with and (suspected) exposure to COVID-19; Z79.899 Other long term (current) drug therapy
CPT/HCPCS: 29130; 36415; 70450; 71045; 71250; 73201; 74176; 74177; 78306; 80048; 80051; 80053; 80076; 80202; 80307; 81001; 81025; 82040; 82550; 82565; 82803; 82945; 82947; 83605; 83690; 83735; 84100; 84157; 84439; 84443; 84484; 85014; 85018; 85025; 85027; 85610; 85730; 86376; 86800; 86803; 86850; 86900; 86901; 86923; 87015; 87040; 87070; 87086; 87205; 87389; 87633; 89051; 92950; 93005; 93306; 93308; 93356; 93931; 93971; 94002; 94003; 97110; 97116; 97162; 97166; 97167; 97530; 97535; 97760; 99285; A9569; C1758; J0131; J0330; J0690; J0696; J1100; J1170; J1200; J1885; J1953; J2185; J2250; J2251; J2371; J2405; J2543; J2795; J2930; J3010; J3370; J3371; P9016; P9047; Q9957; Q9967

== ENCOUNTER 2023-08-16 09:37 | Outpatient (BNV) | payer OTHER, SELFPAY | END 2023-08-17 07:00 | PROVIDERS: Admitting Provider Internal Medicine Cardiovascular Disease; Emergency Provider Emergency Medicine; PCP Internal Medicine; Visit Provider Internal Medicine | DX: I42.9 Cardiomyopathy, unspecified (principal) | CPT/HCPCS: 93306 ==

== ENCOUNTER 2023-08-16 09:37 | Outpatient (BNV) | payer OTHER, SELFPAY | END 2023-09-15 07:00 | PROVIDERS: Admitting Provider Internal Medicine Cardiovascular Disease; Emergency Provider Emergency Medicine; PCP Internal Medicine; Visit Provider Internal Medicine Cardiovascular Disease | DX: I42.9 Cardiomyopathy, unspecified (principal) | CPT/HCPCS: 93308 ==

== ENCOUNTER → 2023-08-16 09:37 | Outpatient (BNV) | payer OTHER, SELFPAY | PROVIDERS: Admitting Provider Internal Medicine Cardiovascular Disease; Emergency Provider Emergency Medicine; PCP Internal Medicine; Visit Provider Internal Medicine | DX: R21 Rash and other nonspecific skin eruption (principal) | CPT/HCPCS: 99222; 99232; 99499 ==

== ENCOUNTER → 2023-08-16 09:37 | Outpatient (BNV) | payer OTHER, SELFPAY | PROVIDERS: Admitting Provider Internal Medicine Cardiovascular Disease; Emergency Provider Emergency Medicine; PCP Internal Medicine; Visit Provider Surgery Vascular Surgery | DX: T79.A19A Traumatic compartment syndrome of unspecified upper extremity, initial encounter (principal) | CPT/HCPCS: 99223; 99232 ==

== ENCOUNTER → 2023-08-16 09:37 | Outpatient (BNV) | payer OTHER, SELFPAY | PROVIDERS: Admitting Provider Internal Medicine Cardiovascular Disease; Emergency Provider Emergency Medicine; PCP Internal Medicine; Visit Provider Internal Medicine Cardiovascular Disease | DX: I42.9 Cardiomyopathy, unspecified (principal) | CPT/HCPCS: 99222 ==

== ENCOUNTER → 2023-08-16 09:37 | Outpatient (BNV) | payer OTHER, SELFPAY | PROVIDERS: Admitting Provider Internal Medicine Cardiovascular Disease; Emergency Provider Emergency Medicine; PCP Internal Medicine; Visit Provider Orthopaedic Surgery | DX: T79.A12A Traumatic compartment syndrome of left upper extremity, initial encounter (principal) | CPT/HCPCS: 11043; 25020; 97605; 99024; 99231; 99232 ==

== ENCOUNTER → 2023-08-16 09:37 | Outpatient (BNV) | payer OTHER, SELFPAY | PROVIDERS: Admitting Provider Internal Medicine Cardiovascular Disease; Emergency Provider Emergency Medicine; PCP Internal Medicine; Visit Provider Student in an Organized Health Care Education/Training Program | DX: G57.32 Lesion of lateral popliteal nerve, left lower limb (principal); T79.A12A Traumatic compartment syndrome of left upper extremity, initial encounter; S14.3XXA Injury of brachial plexus, initial encounter | CPT/HCPCS: 99232; 99233 ==

== ENCOUNTER → 2023-08-16 09:37 | Outpatient (BNV) | payer OTHER, SELFPAY | PROVIDERS: Admitting Provider Internal Medicine Cardiovascular Disease; Emergency Provider Emergency Medicine; PCP Internal Medicine; Visit Provider Internal Medicine Cardiovascular Disease | DX: T79.A19A Traumatic compartment syndrome of unspecified upper extremity, initial encounter (principal); M62.82 Rhabdomyolysis; J69.0 Pneumonitis due to inhalation of food and vomit; G40.909 Epilepsy, unspecified, not intractable, without status epilepticus; I42.0 Dilated cardiomyopathy; I51.4 Myocarditis, unspecified; J18.9 Pneumonia, unspecified organism; R79.89 Other specified abnormal findings of blood chemistry; E87.20 Acidosis, unspecified; N17.9 Acute kidney failure, unspecified; R50.9 Fever, unspecified; R41.82 Altered mental status, unspecified | CPT/HCPCS: 99291 ==

== ENCOUNTER → 2023-08-16 09:37 | Outpatient (BNV) | payer OTHER, SELFPAY | PROVIDERS: Admitting Provider Internal Medicine Cardiovascular Disease; Emergency Provider Emergency Medicine; PCP Internal Medicine; Visit Provider Nurse Practitioner Psychiatric/Mental Health | DX: F11.90 Opioid use, unspecified, uncomplicated (principal) | CPT/HCPCS: 99231 ==

== ENCOUNTER → 2023-08-16 09:37 | Outpatient (BNV) | payer OTHER, SELFPAY | PROVIDERS: Admitting Provider Internal Medicine Cardiovascular Disease; Emergency Provider Emergency Medicine; PCP Internal Medicine; Visit Provider Psychiatry & Neurology Psychiatry | DX: F33.2 Major depressive disorder, recurrent severe without psychotic features (principal); F11.90 Opioid use, unspecified, uncomplicated | CPT/HCPCS: 99222; 99232 ==

== ENCOUNTER → 2023-08-16 09:37 | Outpatient (BNV) | payer OTHER, SELFPAY | PROVIDERS: Admitting Provider Internal Medicine Cardiovascular Disease; Emergency Provider Emergency Medicine; PCP Internal Medicine; Visit Provider Surgery | DX: T79.A19A Traumatic compartment syndrome of unspecified upper extremity, initial encounter (principal) | CPT/HCPCS: 99499 ==

== ENCOUNTER 2023-09-18 08:55 | Outpatient (AMB) | payer OTHER, SELFPAY ==
--- NOTE | 2023-09-18 08:57 | MHC.OFFVIS ---
Intake Intake Visit Reasons: PO - Left Arm Fasciotomy Intake Note: Evita is a 33 year old female who presents today for a post operative appointment s/p Left Arm Fasciotomy. Patient reports that her arm is feeling about the same wiht no changes. Allergies No Known Allergies Allergy (Verified 04/24/23 13:48) HPI PO - Left Arm Fasciotomy HPI Details Here for left arm wound PFSH Medical History (Updated 09/08/23 @ 16:33 by Samantha Taylor MD) Rash Substance abuse Social History Household Members: Family and Children Household Members Other:: Parents, siblings, son Housing: House Do you presently have visiting nurse or other home services: No Unable to assess alcohol history related to: Unable to respond Alcohol intake: current Alcohol intake frequency: 0-2 drinks per day Patient Tobacco Use Status: Current everyday Tobacco user Tobacco use type: Cigarette Substance Use Type: Heroin Review of Systems Const All systems reviewed & are unremarkable except as noted in HPI and below Physical Exam Const General: no acute distress, alert and awake Orientation/consciousness: patient oriented x3 HEENT Head: Yes normocephalic and Yes atraumatic Eyes EOM: EOMs intact bilaterally Resp Effort & Inspection: normal respiratory effort and able to speak in complete sentences Cardio Jugular venous distension: no JVD Skin General skin exam: turgor normal Rashes: no rashes Neuro General: patient oriented x3 Extrem Other: Left Arm: 3 cm x 2 cm open wound proximal forearm volar aspect. Healthy granulation tissue present. Psych Appearance: grossly normal Affect: normal affect Attitude: cooperative Assessment & Plan Assessment & Plan (1) Compartment syndrome of forearm: Code(s): T79.A19A - Traumatic compartment syndrome of unspecified upper extremity, initial encounter Plan: Hallucis is doing well. Wound VAC changed. Prescription for OT and PT made. Follow-up Monday for repeat wound change. (2) Opioid use disorder: Code(s): F11.90 - Opioid use, unspecified, uncomplicated (3) Brachial plexopathy: Code(s): G54.0 - Brachial plexus disorders (4) Status post incision and drainage: Code(s): Z98.890 - Other specified postprocedural states (5) Peroneal neuropathy at knee: Code(s): G57.30 - Lesion of lateral popliteal nerve, unspecified lower limb Qualifiers: Laterality: left Qualified Code(s): G57.32 - Lesion of lateral popliteal nerve, left lower limb Orders: Orders PT Evaluation and Treatment Today G57.30 - Lesion of lateral popliteal nerve, unspecified lower limb OT Evaluation and Treatment Today G54.0 - Brachial plexus disorders, T79.A19A - Traumatic compartment syndrome of unspecified upper extremity, initial encounter Coding Level of Care Code Global (01910) Diagnoses Compartment syndrome of forearm T79.A19A Opioid use disorder F11.90 Brachial plexopathy G54.0 Status post incision and drainage Z98.890 Neuropathy of peroneal nerve at left knee G57.32 Laterality: left
== END 2023-09-18 10:05 | disposition home or self-care (01) ==
PROVIDERS: PCP Internal Medicine; Visit Provider Orthopaedic Surgery
DX: T79.A19A Traumatic compartment syndrome of unspecified upper extremity, initial encounter (principal); F11.90 Opioid use, unspecified, uncomplicated; G54.0 Brachial plexus disorders; Z98.890 Other specified postprocedural states; G57.32 Lesion of lateral popliteal nerve, left lower limb
CPT/HCPCS: 99024

== ENCOUNTER → 2023-09-18 08:55 | Outpatient (BNVA) | payer OTHER, SELFPAY | PROVIDERS: PCP Internal Medicine; Visit Provider Orthopaedic Surgery ==

== ENCOUNTER 2023-09-22 09:48 | Outpatient (AMB) | payer OTHER, SELFPAY ==
--- NOTE | 2023-09-22 09:55 | A.OFFVIS_ITS ---
Intake Intake Visit Reasons: PO - Left Arm Fasciotomy Intake Note: Evita a 33 year old female presents today for a post operative appointment s/p Left Arm Fasciotomy, DOS 09/12/23. Pt states she is having pain and discomfort at this point and time. Accompanied by: Mother Allergies No Known Allergies Allergy (Verified 09/22/23 13:54) HPI PO - Left Arm Fasciotomy HPI Details 33-year-old female who returns to the [facility] today for post-op left arm fasciotomy, 09/12/23. She continues to have pain and discomfort in her arm but is doing well overall. She is taking Tylenol and morphine for her pain with benefits. She has no other concerns today. [facility] Medical History Rash Substance abuse Social History (Updated 09/22/23 @ 09:59 by Nancy Willoughby MA) Household Members: Family and Children Household Members Other:: Parents, siblings, son Housing: House Do you presently have visiting nurse or other home services: No Unable to assess alcohol history related to: Unable to respond Alcohol intake: current Alcohol intake frequency: 0-2 drinks per day Patient Tobacco Use Status: Former Tobacco user Tobacco use type: Cigarette Substance Use Type: Heroin Review of Systems Const All systems reviewed & are unremarkable except as noted in HPI and below Physical Exam Const General: no acute distress, alert and awake Orientation/consciousness: patient oriented x3 HEENT Head: Yes normocephalic and Yes atraumatic Eyes EOM: EOMs intact bilaterally Resp Effort & Inspection: normal respiratory effort and able to speak in complete sentences Cardio Jugular venous distension: no JVD Skin General skin exam: turgor normal Rashes: no rashes Neuro General: patient oriented x3 Extrem Other: Left Arm: 3 cm x 2 cm open wound proximal forearm volar aspect. Healthy granulation tissue present. Pulses present. Psych Appearance: grossly normal Affect: normal affect Attitude: cooperative Assessment & Plan Assessment & Plan (1) Compartment syndrome of forearm: Code(s): T79.A19A - Traumatic compartment syndrome of unspecified upper extremity, initial encounter Plan Dr. Long was available to see the patient with me today. Her wound vac was changed and a new wound vac was applied. I did speak with the pharmacy and they are able to refill her oxycodone which she will take every 4-6 hours as needed for her pain. Once she finishes the morphine sulphate this week, she will be done with that. She will continue with her other scheduled medications. I would like to see her back on Monday for another wound vac check, sooner if needed. Patient Instructions: Scribed for Zackary Galvez PA-C, by Garo Mccann, medical delivery driver, on 09/22/2023 at 10:00 AM EST. I, Zackary Galvez PA-C, have personally reviewed and agree with the information entered by the scribe. Coding Level of Care Code Global (31374) Diagnoses Compartment syndrome of forearm T79.A19A
== END 2023-09-22 11:08 | disposition home or self-care (01) ==
PROVIDERS: PCP Internal Medicine; Visit Provider Physician Assistant
DX: T79.A19A Traumatic compartment syndrome of unspecified upper extremity, initial encounter (principal)
CPT/HCPCS: 99024

== ENCOUNTER → 2023-09-22 09:48 | Outpatient (BNVA) | payer OTHER, SELFPAY | PROVIDERS: PCP Internal Medicine; Visit Provider Physician Assistant | DX: T79.A12D Traumatic compartment syndrome of left upper extremity, subsequent encounter (principal); I42.9 Cardiomyopathy, unspecified; F19.10 Other psychoactive substance abuse, uncomplicated | CPT/HCPCS: 99212; J2250 ==

== ENCOUNTER 2023-09-22 13:26 | Outpatient (AMB) | payer OTHER, SELFPAY ==
--- NOTE | 2023-09-22 13:28 | A.OFFVIS_ITS ---
Intake Vital Signs 09/22/23 13:30 Height 5 ft 6 in Weight 145 lb 8.081 oz BMI 23.5 BP 130/84 Blood Pressure Location Rt brachial Position Sitting Pulse 92 Intake Visit Reasons: [facility] [place] ([place]) Intake Note: [place] [facility] [place] good Tape Maker Required: No Lead Software Developer: Lead Software Developer Present Accompanied by: Mother Allergies No Known Allergies Allergy (Verified 09/22/23 13:54) Medication List - Last Reconciled 09/22/23 by Ann Watts NP acetaminophen 650 mg (2 x 325 mg) PO Q4H PRN 30 days albuterol sulfate 90 mcg/actuation (Ventolin HFA) 2 puffs inhalation RQ4H PRN 30 days carvedilol 3.125 mg See Protocol PO BID 30 days diphenhydramine HCl 25 mg PO Q6H PRN docusate sodium 100 mg PO BID 14 days escitalopram oxalate 5 mg PO DAILY 30 days gabapentin 300 mg PO TID 30 days hydrocortisone 1% 1 appl See Protocol topical DAILY 30 days morphine ER 15 mg PO BID 7 days oxycodone 5 mg PO Q4-6H PRN 7 days HPI HPI Comments History of Present Illness Details 33-year-old female presents with her mot her for a follow-up after being [place] [facility] [place]. She was hospitalized for altered mental staus and found to have compartment syndrome, rhabdomyolysis of the left arm, infection, pneumonia, and newly found cardiomyopathy. Echo on 08/17 showed a reduced EF og 20% which recovered to 50-55% on 09/15 which was found to be consistent with Takotsubo cardiomyopathy. She has a medical history of major depressive disorder, substance abuse, and neuropathy. Patient reports doing well since discharge but reports a lot of appointments which is overwhelming. She states she was unaware that she was to take carvedilol twice a day and has only been taken it once until now. She has been tolerating it well. [facility] Medical History Rash Substance abuse Social History (Updated 09/22/23 @ 09:59 by Nancy Willoughby MA) Household Members: Family and Children Household Members Other:: Parents, siblings, son Housing: House Do you presently have visiting nurse or other home services: No Unable to assess alcohol history related to: Unable to respond Alcohol intake: current Alcohol intake frequency: 0-2 drinks per day Patient Tobacco Use Status: Former Tobacco user Tobacco use type: Cigarette Substance Use Type: Heroin Review of Systems Const Denies chills, Denies fatigue, Denies fever(s), Denies frequent falls, Denies weakness, Denies weight gain and Denies weight loss ENT Denies dizziness Card Denies chest pain, Denies leg edema, Denies lightheadedness, Denies palpitations, Denies dyspnea, Denies dyspnea on exertion, Denies orthopnea and Denies other (loss of consciousness) Resp Denies cough, Denies dyspnea and Denies dyspnea on exertion GI Denies hematochezia and Denies change in stool character Musc Denies abnormal gait, Denies muscle weakness, Denies numbness, Denies radiating pain into limb and Denies tingling Neuro Denies abnormal gait, Denies dizziness, Denies frequent falls, Denies numbness, Denies tingling and Denies weakness Endo Denies fatigue and Denies palpitations Physical Exam Vital Signs: Last Vital Signs Pulse 92 09/22/23 13:30 BP 130/84 09/22/23 13:30 BMI result Body Mass Index 23.5 Const General: healthy appearing and no acute distress Orientation/consciousness: patient oriented x3 HEENT Head: Yes normal to inspection Eyes General: appearance normal, both eyes and all related structures Neck Neck: Yes normal visual inspection Chest Chest palpation & inspection: normal inspection of the chest Resp Effort & Inspection: normal respiratory effort Auscultation: clear to auscultation bilaterally Cardio Jugular venous distension: no JVD Palpation: normal PMI Rate: regular rate Rhythm: regular rhythm Heart sounds: S1 normal heart sound present, S2 normal heart sound present, no click, no gallops, no murmurs and no rubs GI Inspection: Yes normal to inspection Palpation (GI): Soft to palpation Skin General skin exam: no rashes or lesions noted Neuro General: patient oriented x3 Extrem Other: Left arm in sling with wound vac. Psych Appearance: grossly normal Assessment & Plan Assessment & Plan (1) Cardiomyopathy: Code(s): I42.9 - Cardiomyopathy, unspecified (2) Substance abuse: Code(s): F19.10 - Other psychoactive substance abuse, uncomplicated Plan Discussed the signs of heart failure, importance of coreg, and abstaining from abusing substances. Will repeat a limited echo before next appointment to assess EF. Reminded to call with any new symptoms, refills, or concerns. Will have her return in [address] Velasquez or sooner if needed. Orders: Orders CA echo limited 4 Months I42.9 - Cardiomyopathy, unspecified Medications: Changed From diphenhydramine HCl 25 mg PO Q6H 30 days PRN 120 caps 0RF itching To diphenhydramine HCl 25 mg PO Q6H PRN itching Coding Level of Care Code Est Pt Level 4 (74592) Diagnoses Cardiomyopathy I42.9 Substance abuse F19.10
[2023-09-22 13:30] VITALS: BP 130/84; PULSE 92; BMI 23.5
== END 2023-09-22 14:06 | disposition home or self-care (01) ==
PROVIDERS: PCP Internal Medicine; Visit Provider Nurse Practitioner
DX: I42.9 Cardiomyopathy, unspecified (principal); F19.10 Other psychoactive substance abuse, uncomplicated
CPT/HCPCS: 99214

== ENCOUNTER 2023-09-25 08:38 | Outpatient (AMB) | payer OTHER, SELFPAY ==
[2023-09-25 09:27] VITALS: BMI 23.4
--- NOTE | 2023-09-25 09:27 | MHC.OFFVIS ---
Intake Vital Signs 09/25/23 09:27 Height 5 ft 6 in Weight 145 lb BMI 23.4 Intake Visit Reasons: P/O Left Arm Fasciotomy 09/12/23 Intake Note: Evita payne 33 year old female presents today for a post-op left arm fasciotomy, DOS 09/12/23 NE. Allergies No Known Allergies Allergy (Verified 09/22/23 13:54) HPI P/O Left Arm Fasciotomy 09/12/23 HPI Details 33-year-old female who returns to the office today for post-op cast left arm fasciotomy, 09/12/[address] oLng. She has d/c the Morphine and is using Oxycodone for pain and states she is toelrating this well. [facility] Medical History Rash Substance abuse Social History (Updated 09/22/23 @ 09:59 by Nancy Willoughby MA) Household Members: Family and Children Household Members Other:: Parents, siblings, son Housing: House Do you presently have visiting nurse or other home services: No Unable to assess alcohol history related to: Unable to respond Alcohol intake: current Alcohol intake frequency: 0-2 drinks per day Patient Tobacco Use Status: Former Tobacco user Tobacco use type: Cigarette Substance Use Type: Heroin Review of Systems Const All systems reviewed & are unremarkable except as noted in HPI and below Physical Exam Vital Signs: BMI result Body Mass Index 23.4 Const General: no acute distress, alert and awake Orientation/consciousness: patient oriented x3 HEENT Head: Yes normocephalic and Yes atraumatic Eyes EOM: EOMs intact bilaterally Resp Effort & Inspection: normal respiratory effort and able to speak in complete sentences Cardio Jugular venous distension: no JVD Skin General skin exam: turgor normal Rashes: no rashes Neuro General: patient oriented x3 Extrem Other: Left Arm: 3 cm x 2 cm open wound proximal forearm volar aspect. Healthy granulation tissue present. Pulses present. Psych Appearance: grossly normal Affect: normal affect Attitude: cooperative Assessment & Plan Assessment & Plan (1) Compartment syndrome of forearm: Code(s): T79.A19A - Traumatic compartment syndrome of unspecified upper extremity, initial encounter Plan Wound vac was changed. The plan is to get her an appointment with wound care for further evaluation and treatment of the wound. She will see us back on for another wound vac change and reevaluation of her neuropathy. Orders: Referrals Wound Care Referral T79.A19A - Traumatic compartment syndrome of unspecified upper extremity, initial encounter Patient Instructions: Scribed for Zackary Galvez PA-C, by Garo Mccann medical reception, on 09/25/2023 at 8:45 AM EST. I, Zackary Galvez PA-C, have personally reviewed and agree with the information entered by the scribe. Coding Level of Care Code Global (50915) Diagnoses Compartment syndrome of forearm T79.A19A
== END 2023-09-25 10:56 | disposition home or self-care (01) ==
PROVIDERS: PCP Internal Medicine; Visit Provider Physician Assistant
DX: T79.A19A Traumatic compartment syndrome of unspecified upper extremity, initial encounter (principal)
CPT/HCPCS: 99024

== ENCOUNTER → 2023-09-25 08:38 | Outpatient (BNVA) | payer OTHER, SELFPAY | PROVIDERS: PCP Internal Medicine; Visit Provider Physician Assistant ==

== ENCOUNTER 2023-09-28 09:05 | Outpatient (AMB) | payer OTHER, SELFPAY ==
--- NOTE | 2023-09-28 09:23 | A.OFFVIS_ITS ---
Intake Vital Signs 09/28/23 09:24 Height 5 ft 6 in Weight 145 lb BMI 23.4 Intake Visit Reasons: P/O 09/12 Left Arm Fasciotomy Intake Note: Evita payne 33 year old female presents today for a post-op wound check s/p left arm fasciotomy, DOS 09/12/23 NE. Patient reports wound care appointment scheduled for 10/16/23, states this was their soonest appointment. Allergies No Known Allergies Allergy (Verified 09/28/23 09:24) HPI P/O 09/12 Left Arm Fasciotomy HPI Details 33-year-old female who returns to the [facility] today for post-op left arm fasciotomy, 09/12/[address] Long. She continues to have pain and redness in her arm and c/o irritation at the incision site. She is doing well otherwise has no other concerns today. [facility] Medical History Rash Substance abuse Social History Household Members: Family and Children Household Members Other:: Parents, siblings, son Housing: House Do you presently have visiting nurse or other home services: No Unable to assess alcohol history related to: Unable to respond Alcohol intake: current Alcohol intake frequency: 0-2 drinks per day Patient Tobacco Use Status: Former Tobacco user Tobacco use type: Cigarette Substance Use Type: Heroin Review of Systems Const All systems reviewed & are unremarkable except as noted in HPI and below Physical Exam Vital Signs: BMI result Body Mass Index 23.4 Const General: no acute distress, alert and awake Orientation/consciousness: patient oriented x3 HEENT Head: Yes normocephalic and Yes atraumatic Eyes EOM: EOMs intact bilaterally Resp Effort & Inspection: normal respiratory effort and able to speak in complete sentences Cardio Jugular venous distension: no JVD Skin General skin exam: turgor normal Rashes: no rashes Neuro General: patient oriented x3 Extrem Other: Left Arm: 3 cm x 2 cm wound proximal forearm volar aspect. Healthy granulation tissue present. Pulses present. Psych Appearance: grossly normal Affect: normal affect Attitude: cooperative Assessment & Plan Assessment & Plan (1) Compartment syndrome of forearm: Code(s): T79.A19A - Traumatic compartment syndrome of unspecified upper extremity, initial encounter Plan Dr. Long was available to see the patient with me today. There does not appear to be any evidence of any superficial or deep at this time. We are going to discontinue the wound vac as it does appear to be irritating her skin. We will perform wet to dry dressing changes twice a day and she was instructed on how to do this in the office today. I did sent her a prescription refill for oxycodone to her pharmacy. She will follow-up on Monday for another wound check, sooner if needed. Medications: Refilled oxycodone Partial Fill upon patient request. 5 mg PO Q4-6H PRN 42 tabs 0RF pain 7 days Z96.652 - Presence of left artificial knee joint Patient Instructions: Scribed for Zackary Galvez PA-C, by Garo Mccann registered medical transcriptionist, on 09/28/2023 at 9:15 AM EST. Zackary Patel PA-C, have personally reviewed and agree with the information entered by the scribe. Coding Level of Care Code Global (11511) Diagnoses Compartment syndrome of forearm T79.A19A
[2023-09-28 09:24] VITALS: BMI 23.4
== END 2023-09-28 10:31 | disposition home or self-care (01) ==
PROVIDERS: PCP Internal Medicine; Visit Provider Physician Assistant
DX: T79.A19A Traumatic compartment syndrome of unspecified upper extremity, initial encounter (principal)
CPT/HCPCS: 99024

== ENCOUNTER → 2023-09-28 09:05 | Outpatient (BNVA) | payer OTHER, SELFPAY | PROVIDERS: PCP Internal Medicine; Visit Provider Physician Assistant ==

== ENCOUNTER 2023-10-02 09:12 | Outpatient (AMB) | payer OTHER, SELFPAY ==
[2023-10-02 09:19] VITALS: BMI 23.4
--- NOTE | 2023-10-02 09:19 | A.OFFVIS_ITS ---
Intake Vital Signs 10/02/23 09:19 Height 5 ft 6 in Weight 145 lb BMI 23.4 Intake Visit Reasons: P/O 09/12 Left Arm Fasciotomy Intake Note: Evita payne 33 year old female presents today for a post-op wound check s/p left arm fasciotomy, DOS 09/12/23 NE. Allergies No Known Allergies Allergy (Verified 10/02/23 09:22) HPI P/O 09/12 Left Arm Fasciotomy HPI Details 33-year-old female who returns to the [facility] today for post-op wound check of left arm fasciotomy, 09/12/[address] Long. [facility] Medical History Rash Substance abuse Household Members: Family and Children Household Members Other:: Parents, siblings, son Housing: House Do you presently have visiting nurse or other home services: No Unable to assess alcohol history related to: Unable to respond Alcohol intake: current Alcohol intake frequency: 0-2 drinks per day Patient Tobacco Use Status: Former Tobacco user Tobacco use type: Cigarette Substance Use Type: Heroin Review of Systems Const All systems reviewed & are unremarkable except as noted in HPI and below Physical Exam Vital Signs: BMI result Body Mass Index 23.4 Const General: no acute distress, alert and awake Orientation/consciousness: patient oriented x3 HEENT Head: Yes normocephalic and Yes atraumatic Eyes EOM: EOMs intact bilaterally Resp Effort & Inspection: normal respiratory effort and able to speak in complete sentences Cardio Jugular venous distension: no JVD Skin General skin exam: turgor normal Rashes: no rashes Neuro General: patient oriented x3 Extrem Other: Left Arm: 3 cm x 2 cm wound proximal forearm volar aspect. Healthy granulation tissue present. Pulses present. Psych Appearance: grossly normal Affect: normal affect Attitude: cooperative Assessment & Plan Assessment & Plan (1) Compartment syndrome of forearm: Code(s): T79.A19A - Traumatic compartment syndrome of unspecified upper extremity, initial encounter Plan She will continue to perform wet to dry dressing changes twice a day. She will begin occupational therapy tomorrow to work on ADLs and our plan is to see her back next Monday for another wound check to begin the process of skin grafting which she is interested in pursuing. I did explain that our office will be closed this coming and Monday and if she needs refill on any medication, she should contact us prior. At this time, she states she is okay. Patient Instructions: Scribed for Zackary Galvez PA-C, by Garo Mccann medical research tech, on 10/02/2023 at 9:15 AM EST. I, Zackary Galvez PA-C, have personally reviewed and agree with the information entered by the scribe. Coding Level of Care Code Global (59585) Diagnoses Compartment syndrome of forearm T79.A19A
== END 2023-10-02 10:47 | disposition home or self-care (01) ==
PROVIDERS: PCP Internal Medicine; Visit Provider Physician Assistant
DX: T79.A19A Traumatic compartment syndrome of unspecified upper extremity, initial encounter (principal)
CPT/HCPCS: 99024

== ENCOUNTER → 2023-10-02 09:12 | Outpatient (BNVA) | payer OTHER, SELFPAY | PROVIDERS: PCP Internal Medicine; Visit Provider Physician Assistant ==

== ENCOUNTER 2023-10-09 08:53 | Outpatient (AMB) | payer OTHER, SELFPAY ==
[2023-10-09 08:57] VITALS: BMI 23.4
--- NOTE | 2023-10-09 08:57 | MHC.OFFVIS ---
Intake Vital Signs 10/09/23 08:57 Height 5 ft 6 in Weight 145 lb BMI 23.4 Intake Visit Reasons: PO- 09/12 Left Arm Fasciotomy Intake Note: Evita payne 33 year old female presents today for a post-op wound check s/p left arm fasciotomy, DOS 09/12/23 NE. Allergies No Known Allergies Allergy (Verified 10/09/23 09:03) HPI PO- 09/12 Left Arm Fasciotomy HPI Details 33-year-old female who returns to the office today for post-op left arm fasciotomy, 09/12/[address] Long. She states she has great improvement in her symptoms and is doing well overall. She has no other concerns today. [facility] Medical History Rash Substance abuse Household Members: Family and Children Household Members Other:: Parents, siblings, son Housing: House Do you presently have visiting nurse or other home services: No Unable to assess alcohol history related to: Unable to respond Alcohol intake: current Alcohol intake frequency: 0-2 drinks per day Patient Tobacco Use Status: Former Tobacco user Tobacco use type: Cigarette Substance Use Type: Heroin Review of Systems Const All systems reviewed & are unremarkable except as noted in HPI and below Physical Exam Vital Signs: BMI result Body Mass Index 23.4 Const General: no acute distress, alert and awake Orientation/consciousness: patient oriented x3 HEENT Head: Yes normocephalic and Yes atraumatic Eyes EOM: EOMs intact bilaterally Resp Effort & Inspection: normal respiratory effort and able to speak in complete sentences Cardio Jugular venous distension: no JVD Skin General skin exam: turgor normal Rashes: no rashes Neuro General: patient oriented x3 Extrem Other: Left Arm: 1 cm x 2 cm wound proximal forearm volar aspect. Healthy granulation tissue present. Pulses present. Psych Appearance: grossly normal Affect: normal affect Attitude: cooperative Assessment & Plan Assessment & Plan (1) Compartment syndrome of forearm: Code(s): T79.A19A - Traumatic compartment syndrome of unspecified upper extremity, initial encounter Plan Dr. Long was available to see the patient with me today. Based on her progress and healing the decision has been made to cancel her upcoming surgery for skin graft. She will continue with wet to dry dressing changes and see us back 1 week for reevaluation, sooner if needed. Patient Instructions: Scribed for Zackary Galvez PA-C, by Garo Mccann medical accounts receivable specialist, on 10/09/2023 at 9:00 AM EST. IZackary PA-C, have personally reviewed and agree with the information entered by the scribe. Coding Level of Care Code Global (99514) Diagnoses Compartment syndrome of forearm T79.A19A
== END 2023-10-09 09:45 | disposition home or self-care (01) ==
PROVIDERS: PCP Internal Medicine; Visit Provider Physician Assistant
DX: T79.A19A Traumatic compartment syndrome of unspecified upper extremity, initial encounter (principal)
CPT/HCPCS: 99024

== ENCOUNTER → 2023-10-09 08:53 | Outpatient (BNVA) | payer OTHER, SELFPAY | PROVIDERS: PCP Internal Medicine; Visit Provider Physician Assistant ==

== ENCOUNTER 2023-10-14 18:59 | Emergency (ER) | payer OTHER, SELFPAY ==
--- NOTE | 2023-10-14 | ECG_ITS ---
Test Reason : SYNCOPE Blood Pressure : / mmHG Vent. Rate : 083 BPM Atrial Rate : 083 BPM P-R Int : 144 ms QRS Dur : 086 ms QT Int : 372 ms P-R-T Axes : 054 028 -09 degrees QTc Int : 437 ms Normal sinus rhythm Normal ECG When compared with ECG of 31-AUG-2023 20:33, Vent. rate has decreased BY 44 BPM Nonspecific T wave abnormality no longer evident in Lateral leads Referred By: Gianni Hernandez Electronically Signed By:GABY DAVIS MD
--- NOTE | ~2023-10-14 | XR_ITS ---
EXAMINATION: XR CHEST CLINICAL INFORMATION: Pain. COMPARISON: Chest radiograph 08/18/2023. TECHNIQUE: 2 views of the chest were obtained. FINDINGS: Normal appearance of the cardiomediastinal silhouette. No focal airspace opacities, pleural effusions or pneumothorax. No acute osseous findings. Visualized upper abdomen is within normal limits. XR/XR chest 2V IMPRESSION: No acute cardiopulmonary findings.
[2023-10-14 19:11] VITALS: BP 103/72; BP 96/74; PULSE 10; PULSE 95; RESP 20; O2SAT 99; BMI 27.1
[2023-10-14 19:17] VITALS: PULSE 91; O2SAT 100
--- NOTE | 2023-10-14 19:36 | ED.GENADULT ---
HPI - General Adult General Chief complaint: Syncope Stated complaint: near syncope Time Seen by Provider: 10/14/23 19:08 Source: patient, RN notes reviewed and old records reviewed Mode of arrival: EMS Limitations: no limitations History of Present Illness HPI narrative: 33-year-old female with past medical history significant for opioid use disorder, recent admission for compartment syndrome of the left forearm require ICU level of care, multiple surgeries/debridement. Patient was discharged on 09/15/23 after this admission. She was on antibiotics for over a month, Patient follows up with a general surgeon this coming Monday. She states that 2 weeks ago she followed up with Cardiology and was ?told everything was okay. ? She had a wound VAC up until 2 weeks ago of the left forearm Patient has been doing well at home up until last night she started to feel ?unwell. ? She states that she did not sleep very well last night Reports subjective chills but no fevers pain Denies any chest pain, shortness of breath, cough for Denies any abdominal pain but endorses nausea Patient reports that she was ?sitting at the table and nearly passed out. ? Per the patient's father who is bedside, ?she turned very pale and white. ? Patient reports that she did not in in the single day today because she has no appetite and has been nauseous but has not been vomiting No other complaints or concerns at this time Patient denies any drug use since discharge Related Data Home Medications Medication Instructions Recorded Confirmed diphenhydramine HCl 25 mg capsule 25 mg PO Q6H PRN itching 09/22/23 09/22/23 Previous Rx's Medication Instructions Recorded acetaminophen 325 mg tablet 650 mg (2 x 325 mg) PO Q4H PRN 09/15/23 fever or pain 30 days #240 tabs albuterol sulfate 90 mcg/actuation 2 puff inhalation RQ4H PRN 09/15/23 aerosol inhaler (Ventolin HFA) Shortness Of Breath/Wheezing 30 days #1 g carvedilol 3.125 mg tablet 3.125 mg PO BID 30 days #60 tabs 09/15/23 docusate sodium 100 mg capsule 100 mg PO BID 14 days #28 caps 09/15/23 escitalopram oxalate 5 mg tablet 5 mg PO DAILY 30 days #30 tabs 09/15/23 gabapentin 300 mg capsule 300 mg PO TID 30 days #90 caps 09/15/23 hydrocortisone 1 % topical cream 1 appl topical DAILY 30 days #1 g 09/15/23 morphine 15 mg tablet,extended 15 mg PO BID 7 days #14 tabs 09/15/23 release oxycodone 5 mg tablet 5 mg PO Q4-6H PRN pain 7 days #42 10/11/23 tabs ondansetron 4 mg disintegrating 4 mg PO Q8H PRN nausea and 10/14/23 tablet vomiting #20 tabs Allergies Allergy/AdvReac Type Severity Reaction Status Date / Time No Known Allergies Allergy Verified 10/14/23 19:11 Review of Systems Constitutional: Constitutional: Reports chills, Denies fever(s), Reports poor appetite and Reports weakness Eyes: Eyes: Denies blurry vision ENT: Denies sore throat Cardiovascular: Cardiovascular: Denies chest pain, Denies rapid heart rate, Denies irregular heart rhythm and Denies dyspnea Respiratory: Respiratory: Denies cough and Denies dyspnea Gastrointestinal: Gastrointestinal: Denies abdominal pain, Reports nausea and Denies vomiting Musculoskeletal: Musculoskeletal: Denies back pain Integumentary/Breasts: Skin/Breast: Denies rash Neurologic: Denies confusion, Reports focal weakness (left arm weakness) and Reports weakness Psychiatric: Psychiatric: Denies confusion, Denies depression and Denies suicidal ideation [facility] Past Medical History Medical History Rash Substance abuse Social History Social History Household Members: Family and Children Household Members Other:: Parents, siblings, son Housing: House Do you presently have visiting nurse or other home services: No Unable to assess alcohol history related to: Unable to respond Alcohol intake: former Patient Tobacco Use Status: Former Tobacco user Tobacco use type: Cigarette Smoked in Last 30 Days: Yes Use of substances other than those prescribed or required for medical reasons: No Substance Use Type: Heroin Advance Directives: No Advance Directives Information Provided: No Patient : No Physical Exam ED Vital Signs: Vital Signs - 24 hr 10/14/23 19:11 10/14/23 19:17 10/14/23 20:23 Temperature 98.7 F Pulse Rate 95 80 Respiratory Rate 20 16 Blood Pressure 103/72 Pulse Oximetry 99 100 97 Oxygen Delivery Method Room Air Room Air Room Air 10/14/23 22:20 Temperature Pulse Rate 86 Respiratory Rate 17 Blood Pressure 108/66 Pulse Oximetry Oxygen Delivery Method BMI result Body Mass Index 27.1 Const General: No confusion Nutritional Appearance: well nourished Orientation/consciousness: No confusion HENMT Head: Yes normocephalic and Yes atraumatic Throat: Yes posterior oropharynx normal Eyes Eyelids: Yes eyelids normal Conjunctivae: conjunctivae normal Sclerae: sclerae normal Corneas: corneas normal Pupils: Equal, round and reactive pupils present EOM: EOMs intact bilaterally Neck Neck: Yes full ROM Resp Effort & Inspection: normal respiratory effort, able to speak in complete sentences, no audible wheezes and not labored Auscultation: clear to auscultation bilaterally Cardio Rate: regular rate Rhythm: regular rhythm GI Inspection: No distended Palpation (GI): Soft to palpation, not firm, nontender, no guarding and not rigid Auscultation: normoactive bowel sounds Skin General skin exam: no rashes or lesions noted and elasticity normal Neuro Other: Patient is unable to move the left arm General: No confusion Cranial nerves: Yes Equal, round and reactive pupils present and Yes Bilaterally intact EOM present Cognition (Neuro): normal cognition Extrem Other: Surgical scar to left forearm, no surrounding erythema, edema, drainage Course Reevaluation(s) Reevaluation #1: Patient's workup unremarkable, this includes labs, chest x-ray, EKG, UA was positive for marijuana but no other illicit substances. No signs of UTI, the urine sample appeared contaminated. The patient reports feeling better, her vital signs remained stable, she is stable for discharge Time: 22:50 Medications Administered Discontinued Medications Generic Name Dose Route Start Last Admin Trade Name Yuriq PRN Reason Stop Dose Admin Gabapentin 300 mg 10/14/23 19:33 10/14/23 19:43 Gabapentin 300 Mg Capsule PO 10/14/23 19:34 300 mg ONCE ONE Administration Sodium Chloride 1,000 mls @ 999 mls/hr 10/14/23 19:45 10/14/23 21:10 Ns IV 10/14/23 20:45 Infused .Q1H1M JEANINE Infusion Medical Decision Making Medical Decision Making MDM Narrative: 33-year-old female presents for evaluation of a near syncopal episode. Denies any recent substance abuse. She had a very lengthy admission which are reviewed all the records of. Patient's most recent echocardiogram shows recovery of ejection fraction of 55%. She denies any chest pain or shortness of breath. Plan for EKG, troponin. Will obtain blood cultures and lactate given the recent infectious process and subjective chills. Patient's vital signs are currently within normal limits. She will be given IV fluids, Zofran. Chest x-ray, UA and tox screen will be obtained. Further workup as indicated Differential Diagnosis Differential Diagnoses: The differential diagnosis associated with the presentation includes Syncope Near syncope Dehydration Orthostasis Admission/Observation Consideration of admission/observation: Escalation of care including admission/observation considered Patient presented for near-syncope but ultimately negative workup in did not require admission Lab Data MDM Lab Attestation statement: I reviewed the patient's lab results. No leukocytosis or anemia. Normal platelet count. No significant electrolyte abnormalities. Around normal limits. 10/14/23 20:01 10/14/23 20:02 Labs: Lab Results 10/14/23 10/14/23 10/14/23 Range/Units 20:00 20:01 20:02 WBC 7.2 (4.8-10.8) X10*3/uL RBC 4.75 D (4.20-5.50) X10*6/uL Hgb 14.3 D (12.0-16.0) g/dl Hct 42.3 D (37.0-47.0) % MCV 89.1 (80.0-98.0) fL MCH 30.1 (27.0-33.0) pg MCHC 33.8 (31.0-35.0) g/dl RDW 14.5 (11.0-16.0) % Plt Count 352 D (160-400) X10*3/uL MPV 10.7 (9.4-12.3) fL Immature Gran % (Auto) 0.3 (0.0-0.4) % Neut % (Auto) 63.8 (45-73) % Lymph % (Auto) 27.4 (20-40) % [place] % (Auto) 5.7 (2-11) % Eos % (Auto) 1.7 (0-4) % Baso % (Auto) 1.1 (0-2) % Lymph # (Auto) 2.0 (1.2-4.9) X10*3/uL [place] # (Auto) 0.4 (0.1-1.2) X10*3/uL Eos # (Auto) 0.1 (0.0-0.4) X10*3/uL Baso # (Auto) 0.1 (0.0-0.2) X10*3/uL Abs Immat Gran (auto) 0.02 (0.00-0.03) X10*3/uL Absolute Neuts (auto) 4.6 (2.0-8.3) x10*3/uL Absolute Nucleated RBC 0.000 (0.0-0.012) X10*3/uL Nucleated RBC % (auto) 0.0 (0.0-0.2) /100WBC PT (11.1-13.3) SEC INR (0.9-1.1) APTT (26.0-36.4) SEC Sodium 136 (135-145) mmol/L Potassium 3.9 (3.3-5.1) mmol/L Chloride 106 (96-108) mmol/L Carbon Dioxide 18 L (22-29) mmol/L Anion Gap 16 (12-20) BUN 8 L (9-16) mg/dL Creatinine 0.81 (0.5-1.4) mg/dL Estim Creat Clear Calc 91.4 Estimated GFR > 60 Random Glucose 97 (60-115) mg/dL Lactic Acid 1.1 (0.5-2.0) mmol/L Calcium 10.1 (8.4-10.2) mg/dL Total Bilirubin 0.9 (0.0-1.0) mg/dL AST 24 (5-31) U/L ALT 21 (0-31) U/L Alkaline Phosphatase 57 (39-117) U/L Troponin I High Sens < 2.7 D (<3.5-17.0) ng/L Total Protein 7.8 (6.5-8.0) g/dL Albumin 4.3 (3.5-5.0) g/dL Lipase 15 (8-78) U/L Beta HCG, Quant < 2 mIU/mL Urine Color Urine Appearance Urine pH (5.0-9.0) Ur Specific [place] (1.005-1.025) Urine Protein (Neg-Trace) mg/dL Urine Glucose (UA) (Negative) mg/dL Urine Ketones (Negative) mg/dL Urine Blood (Negative) Urine Nitrite (Negative) Ur Leukocyte Esterase (Negative) Urine RBC (0-2) /HPF Urine WBC (0-5) /HPF Ur Squamous Epith Cells (0-2) /HPF Urine Bacteria (None Seen) Hyaline Casts (0-2) /LPF Urine Opiates Screen (Not Detect) Urine Fentanyl Screen (Not Detect) Ur Barbiturates Screen (Not Detect) Ur Phencyclidine Scrn (Not Detect) Ur Amphetamines Screen (Not Detect) U Benzodiazepines Scrn (Not Detect) Urine Cocaine Screen (Not Detect) U Marijuana (THC) Screen (Not Detect) Influenza Type A (PCR) NEGATIVE (Negative) Influenza Type B (PCR) NEGATIVE (Negative) RSV RNA Qual (PCR) NEGATIVE (Negative) SARS-CoV-2 RNA (RT-PCR) NEGATIVE (Negative) 10/14/23 10/14/23 Range/Units 21:16 22:16 WBC (4.8-10.8) X10*3/uL RBC (4.20-5.50) X10*6/uL Hgb (12.0-16.0) g/dl Hct (37.0-47.0) % MCV (80.0-98.0) fL MCH (27.0-33.0) pg MCHC (31.0-35.0) g/dl RDW (11.0-16.0) % Plt Count (160-400) X10*3/uL MPV (9.4-12.3) fL Immature Gran % (Auto) (0.0-0.4) % Neut % (Auto) (45-73) % Lymph % (Auto) (20-40) % [place] % (Auto) (2-11) % Eos % (Auto) (0-4) % Baso % (Auto) (0-2) % Lymph # (Auto) (1.2-4.9) X10*3/uL [place] # (Auto) (0.1-1.2) X10*3/uL Eos # (Auto) (0.0-0.4) X10*3/uL Baso # (Auto) (0.0-0.2) X10*3/uL Abs Immat Gran (auto) (0.00-0.03) X10*3/uL Absolute Neuts (auto) (2.0-8.3) x10*3/uL Absolute Nucleated RBC (0.0-0.012) X10*3/uL Nucleated RBC % (auto) (0.0-0.2) /100WBC PT 15.0 H D (11.1-13.3) SEC INR 1.2 H (0.9-1.1) APTT 30.2 (26.0-36.4) SEC Sodium (135-145) mmol/L Potassium (3.3-5.1) mmol/L Chloride (96-108) mmol/L Carbon Dioxide (22-29) mmol/L Anion Gap (12-20) BUN (9-16) mg/dL Creatinine (0.5-1.4) mg/dL Estim Creat Clear Calc Estimated GFR Random Glucose (60-115) mg/dL Lactic Acid (0.5-2.0) mmol/L Calcium (8.4-10.2) mg/dL Total Bilirubin (0.0-1.0) mg/dL AST (5-31) U/L ALT (0-31) U/L Alkaline Phosphatase (39-117) U/L Troponin I High Sens (<3.5-17.0) ng/L Total Protein (6.5-8.0) g/dL Albumin (3.5-5.0) g/dL Lipase (8-78) U/L Beta HCG, Quant mIU/mL Urine Color DK YELLOW Urine Appearance Clear Urine pH 6.0 (5.0-9.0) Ur Specific [place] 1.025 (1.005-1.025) Urine Protein Trace (Neg-Trace) mg/dL Urine Glucose (UA) Negative (Negative) mg/dL Urine Ketones Trace (Negative) mg/dL Urine Blood Negative (Negative) Urine Nitrite Negative (Negative) Ur Leukocyte Esterase Negative (Negative) Urine RBC 3-5 H (0-2) /HPF Urine WBC 6-10 H (0-5) /HPF Ur Squamous Epith Cells 11-20 (0-2) /HPF Urine Bacteria Trace (None Seen) Hyaline Casts 3-5 (0-2) /LPF Urine Opiates Screen Not Detected (Not Detect) Urine Fentanyl Screen Not Detected (Not Detect) Ur Barbiturates Screen Not Detected (Not Detect) Ur Phencyclidine Scrn Not Detected (Not Detect) Ur Amphetamines Screen Not Detected (Not Detect) U Benzodiazepines Scrn Not Detected (Not Detect) Urine Cocaine Screen Not Detected (Not Detect) U Marijuana (THC) Screen POSITIVE H (Not Detect) Influenza Type A (PCR) (Negative) Influenza Type B (PCR) (Negative) RSV RNA Qual (PCR) (Negative) SARS-CoV-2 RNA (RT-PCR) (Negative) Independent Interpretation I performed an independent interpretation of an: EKG (Sinus rhythm with a rate of 83 beats per minute. No ST elevations or depressions.) and Plain X-Ray (No infiltrates) Radiology Impression Discussion of test interpretation with radiology: I have reviewed the radiologist's reading. (No acute cardiopulmonary findings) Discharge Plan Discharge Clinical Impression: Near syncope Patient Disposition: Home, Self-Care Instructions: Near Syncope (ED) Additional Instructions: Your workup in the emergency room today was reassuring. Drink lots of fluids. Use Zofran as needed for nausea and vomiting Follow-up with your primary doctor and specialists Return for new or worsening symptoms Prescriptions: New ondansetron 4 mg tablet,disintegrating 4 mg PO Q8H PRN (Reason: nausea and vomiting) Qty: 20 0RF No Action albuterol sulfate [Ventolin HFA] 90 mcg/actuation HFA aerosol inhaler 2 puff inhalation RQ4H PRN (Reason: Shortness Of Breath/Wheezing) 30 Days Qty: 1 0RF oxycodone 5 mg tablet 5 mg PO Q4-6H PRN (Reason: pain) 7 Days Qty: 42 0RF Rx Instructions: Partial Fill upon patient request. acetaminophen 325 mg Tablet 650 mg PO Q4H PRN (Reason: fever or pain) 30 Days Qty: 240 1RF gabapentin 300 mg Capsule 300 mg PO TID 30 Days Qty: 90 0RF escitalopram oxalate 5 mg Tablet 5 mg PO DAILY 30 Days Qty: 30 0RF docusate sodium 100 mg Capsule 100 mg PO BID 14 Days Qty: 28 0RF carvedilol 3.125 mg Tablet 3.125 mg PO BID 30 Days Qty: 60 0RF Protocol: Hold for SBP/HR < HOLD for SBP < : 90 HOLD for HR < : 60 hydrocortisone 1 % Cream 1 appl topical DAILY 30 Days Qty: 1 0RF Protocol: Apply to: Apply to: back morphine 15 mg Tablet Extended Release 15 mg PO BID 7 Days Qty: 14 0RF Rx Instructions: Partial Fill upon patient request. diphenhydramine HCl 25 mg capsule 25 mg PO Q6H PRN (Reason: itching)
[2023-10-14] MEDS: Gabapentin 300 MG CAPSULE PO (19:43)
[2023-10-14] MEDS: 0.9 % Sodium Chloride 1,000 ML 999 ML IV (20:06)
[2023-10-14 20:07] LABS: MANUAL DIFF FLAG NO
[2023-10-14 20:09] LABS: Basophils Absolute Auto 0.1 X10*3/uL (0.0-0.2); Basophils Percent Auto 1.1 % (0-2); Eosinophils Absolute Auto 0.1 X10*3/uL (0.0-0.4); Eosinophils Percent Auto 1.7 % (0-4); Hematocrit 42.3 % (37.0-47.0); Hemoglobin 14.3 g/dl (12.0-16.0); Imm Gran Abs Auto 0.02 X10*3/uL (0.00-0.03); Imm Gran Pct Auto 0.3 % (0.0-0.4); Lymphocytes Percent Auto 27.4 % (20-40); Mean Corpuscular HGB Conc 33.8 g/dl (31.0-35.0); Mean Corpuscular Hemoglobin 30.1 pg (27.0-33.0); Mean Corpuscular Volume 89.1 fL (80.0-98.0); Mean Platelet Volume 10.7 fL (9.4-12.3); Monocytes Absolute Auto 0.4 X10*3/uL (0.1-1.2); Monocytes Percent Auto 5.7 % (2-11); Neutrophils Absolute Auto 4.6 x10*3/uL (2.0-8.3); Neutrophils Percent Auto 63.8 % (45-73); Platelet Count 352 X10*3/uL (160-400); Red Blood Count 4.75 X10*6/uL (4.20-5.50); Red Cell Distribution Width 14.5 % (11.0-16.0); White Blood Count 7.2 X10*3/uL (4.8-10.8)
[2023-10-14 20:17] LABS: Lactic Acid 1.1 mmol/L (0.5-2.0)
[2023-10-14 20:23] VITALS: PULSE 80; RESP 16; TEMP 37.1; O2SAT 97
--- NOTE | 2023-10-14 20:28 | PC.NURSE ---
pt reports now that she feels mostly back to baseline - aox4, denies dizziness at this time but dose say that since discharge she hasnt been great on her feet. Work-up in progress considering pts recent medical hx. labs drawn, tech working on second blood culture draw. ekg done and IV in right AC. urine sample pending. no complaints at this time, plan of care ongoing
[2023-10-14 20:32] LABS: Alanine Aminotransferase 21 U/L (0-31); Albumin Level 4.3 g/dL (3.5-5.0); Alkaline Phosphatase 57 U/L (39-117); Anion Gap 16 (12-20); Aspartate Amino Transferase 24 U/L (5-31); Bilirubin Total 0.9 mg/dL (0.0-1.0); Blood Urea Nitrogen 8 mg/dL (9-16); Calcium 10.1 mg/dL (8.4-10.2); Carbon Dioxide 18 mmol/L (22-29); Chloride 106 mmol/L (96-108); Creatinine Clr Calc Pharmacy 91.4; Estimated Glomerular Filt Rate > 60; Glucose Random 97 mg/dL (60-115); Lipase 15 U/L (8-78); Potassium 3.9 mmol/L (3.3-5.1); Sodium 136 mmol/L (135-145); Total Protein 7.8 g/dL (6.5-8.0)
[2023-10-14 20:35] LABS: HCG Quantitative < 2 mIU/mL
[2023-10-14 20:36] LABS: Troponin-I High Sensitivity < 2.7 ng/L (<3.5-17.0)
[2023-10-14 20:47] LABS: Influenza A PCR NEGATIVE (Negative); Influenza B PCR NEGATIVE (Negative); Resp Syncy Virus RNA Qual PCR NEGATIVE (Negative); SARS COV2 PCR INHOUSE NEGATIVE (Negative)
--- NOTE | 2023-10-14 20:56 | PC.NURSE ---
assumed care of pt
[2023-10-14 21:30] LABS: INTERNATIONAL NORM RATIO 1.2 (0.9-1.1)
[2023-10-14 21:33] LABS: Partial Thromboplastin Time 30.2 SEC (26.0-36.4)
[2023-10-14 22:20] VITALS: BP 108/66; PULSE 86; RESP 17
[2023-10-14 22:25] LABS: Appearance Urine Clear; Color Urine DK YELLOW; Glucose Urine UA Negative (Negative); Leukocyte Esterase Urine Negative (Negative); Nitrite Urine Negative (Negative); Specific Gravity - Urine 1.025 (1.005-1.025); Urine Blood Negative (Negative); Urine Ketones Trace mg/dL (Negative); Urine Protein Trace mg/dL (Neg-Trace)
[2023-10-14 22:30] LABS: Bacteria Urine Trace (None Seen); UACC Culture Trigger YES
[2023-10-14 22:34] LABS: Amphetamine Screen Urine Not Detected (Not Detect); Barbiturates, Urine Not Detected (Not Detect); Benzodiazepines Screen Urine Not Detected (Not Detect); Cannabinoid Screen Urine POSITIVE (Not Detect); Cocaine Screen Urine Not Detected (Not Detect); Fentanyl, urine Not Detected (Not Detect); Opiate Screen Urine Not Detected (Not Detect); Phencyclidine Screen Urine Not Detected (Not Detect)
== END 2023-10-14 23:26 | disposition home or self-care (01) ==
PROVIDERS: Physician Assistant; Emergency Provider Internal Medicine
DX: R55 Syncope and collapse (principal); R11.0 Nausea; Z20.822 Contact with and (suspected) exposure to COVID-19; Z20.828 Contact with and (suspected) exposure to other viral communicable diseases; F19.10 Other psychoactive substance abuse, uncomplicated; Z87.891 Personal history of nicotine dependence; Z79.899 Other long term (current) drug therapy
CPT/HCPCS: 0241U; 71046; 80053; 80307; 81001; 83605; 83690; 84484; 84702; 85025; 85610; 85730; 87040; 87086; 93005; 96360; 99284; 99285

== ENCOUNTER → 2023-10-14 20:17 | Outpatient (BNV) | payer OTHER, SELFPAY | PROVIDERS: Emergency Provider Internal Medicine; Visit Provider Internal Medicine Cardiovascular Disease | DX: R55 Syncope and collapse (principal) | CPT/HCPCS: 93010 ==

== ENCOUNTER 2023-10-16 11:07 | Outpatient (AMB) | payer OTHER, SELFPAY ==
--- NOTE | 2023-10-16 11:09 | A.OFFVIS_ITS ---
Intake Vital Signs 10/16/23 11:11 Height 5 ft 3 in Weight 153 lb BMI 27.1 Intake Visit Reasons: PO- 09/12 Left Arm Fasciotomy Intake Note: Evita payne 33 year old female presents today for a post-op wound check s/p left arm fasciotomy, DOS 09/12/23 NE. Patient reports that she doing well, she continues to do daily dressings as directed. Allergies No Known Allergies Allergy (Verified 10/16/23 11:12) HPI PO- 09/12 Left Arm Fasciotomy HPI Details 33-year-old female who returns to the [facility] today for post-op left arm fasciotomy, 09/12/[address] Long. She states she has no pain and is doing well overall. she continues to performed her daily dressing changes as instructed. She is doing well overall and has no concerns today. [facility] Medical History Rash Substance abuse Social History Household Members: Family and Children Household Members Other:: Parents, siblings, son Housing: House Do you presently have visiting nurse or other home services: No Unable to assess alcohol history related to: Unable to respond Alcohol intake: former Patient Tobacco Use Status: Former Tobacco user Tobacco use type: Cigarette Substance Use Type: Heroin Review of Systems Const All systems reviewed & are unremarkable except as noted in HPI and below Physical Exam Vital Signs: BMI result Body Mass Index 27.1 Const General: no acute distress, alert and awake Orientation/consciousness: patient oriented x3 HEENT Head: Yes normocephalic and Yes atraumatic Eyes EOM: EOMs intact bilaterally Resp Effort & Inspection: normal respiratory effort and able to speak in complete sentences Cardio Jugular venous distension: no JVD Skin General skin exam: turgor normal Rashes: no rashes Neuro General: patient oriented x3 Extrem Other: Left Arm: 1 cm x 2 cm wound proximal forearm volar aspect. Healthy granulation tissue present. Pulses present. Psych Appearance: grossly normal Affect: normal affect Attitude: cooperative Assessment & Plan Assessment & Plan (1) Compartment syndrome of forearm: Code(s): T79.A19A - Traumatic compartment syndrome of unspecified upper extremity, initial encounter Plan She will continue wet to dry dressing changes for the next 2 weeks at which point she will see us back for another wound check. Medications: Refilled oxycodone Partial Fill upon patient request. 5 mg PO Q4-6H PRN 42 tabs 0RF pain 7 days Z96.652 - Presence of left artificial knee joint gabapentin 300 mg PO TID 90 caps 0RF 30 days gabapentin 300 mg PO TID 30 days 90 caps 0RF Patient Instructions: Scribed for Zackary Galvez PA-C, by Garo Mccann medical technologist generalist, on 10/16/2023 at 11:30 AM EST. I, Zackary Galvez PA-C, have personally reviewed and agree with the information entered by the scribe. Coding Level of Care Code Global (20312) Diagnoses Compartment syndrome of forearm T79.A19A
[2023-10-16 11:11] VITALS: BMI 27.1
== END 2023-10-16 12:04 | disposition home or self-care (01) ==
PROVIDERS: PCP Internal Medicine; Visit Provider Physician Assistant
DX: T79.A19A Traumatic compartment syndrome of unspecified upper extremity, initial encounter (principal)
CPT/HCPCS: 99024

== ENCOUNTER → 2023-10-16 11:07 | Outpatient (BNVA) | payer OTHER, SELFPAY | PROVIDERS: PCP Internal Medicine; Visit Provider Physician Assistant | DX: T79.A12A Traumatic compartment syndrome of left upper extremity, initial encounter (principal); R20.0 Anesthesia of skin; R20.2 Paresthesia of skin | CPT/HCPCS: 99212 ==

== ENCOUNTER 2023-10-20 11:15 | Outpatient (REF) | payer OTHER, SELFPAY ==
--- NOTE | 2023-10-20 11:18 | EMG_ITS ---
History/exam: 33 year old woman, admitted 08/17/23, after being found down at home, OD, requring ICU admission and intubation. Left forearm compartment syndrome, requiring multiple surgeries, suspected brachial plexopathy. Left leg pain and foot drop since. Reports pain on calf and dorsal left foot. Sensitivity to touch on dorsal left foot. 4/5 left lower extremity because of pain. Dorsiflexion and EHL improved, at least 4/5, compared to when I 1st saw her in the hospital. Reason for referral: Evaluate for peroneal neuropathy Referred by: Zackary KINCAID Procedure done: Left lower extremity NCS/EMG, comparison to right Precautions and/or limitations: None The limb temperature was monitored continuously and remained between 32-36 degrees C during the performance of the NCS. Nerve Conduction Studies Anti Sensory Summary Table ?Stim Site NR Onset (ms) Norm Onset (ms) Peak (ms) Norm Peak (ms) O-P Amp (?V) Norm O-P Amp Site1 Site2 Delta-0 (ms) Dist (cm) Jose Elias (m/s) Norm Jose Elias (m/s) Left Sup Peron Anti Sensory (Ankle) Lateral Leg NR <4.4 >5.0 Lateral Leg Ankle 14.0 Left Sural Anti Sensory (Lat Mall) Calf NR <4.0 >5.0 Calf Lat Mall 14.0 Right Sural Anti Sensory (Lat Mall) Calf ? 1.5 3.5 <4.0 8.5 >5.0 Calf Lat Mall 1.5 14.0 93 Motor Summary Table ?Stim Site NR Onset (ms) Norm Onset (ms) O-P Amp (mV) Norm O-P Amp iAmp (mV) Amp (1st) (%) Site1 Site2 Delta-0 (ms) Dist (cm) Jose Elias (m/s) Norm Jose Elias (m/s) Left Peroneal Motor (Ext Dig Brev) Ankle ? 5.2 <4.0 0.8 >2.5 0.8 100.0 Ankle Ext Dig Brev 5.2 0.0 B Fib ? 12.7 0.7 0.8 87.5 B Fib Ankle 7.5 32.5 43 >40 Poplt ? 13.8 0.7 0.8 87.5 Poplt B Fib 1.1 3.5 32 >40 Left Tibial Motor (Abd Ang Brev) Ankle NR <5 >2.5 Ankle Abd Ang Brev 0.0 Knee NR Knee Ankle 0.0 >40 Right Tibial Motor (Abd Ang Brev) Ankle ? 4.7 <5 10.2 >2.5 13.4 100.0 Ankle Abd Ang Brev 4.7 0.0 Knee ? 13.2 7.7 9.5 75.5 Knee Ankle 8.5 37.0 44 >40 EMG ?Side Muscle Nerve Root Ins Act Fibs Psw Amp Dur Poly Recrt Int Pat Comment Left AbdHallucis MedPlantar S1-2 Incr 1+ 1+ Nml Nml 0 Nml Complete Left AntTibialis Dp Br Peron L4-5 Incr 1+ 1+ Nml Nml 0 Nml Complete Left PostTibialis Tibial L5, S1 Nml Nml Nml Nml Nml 0 Nml Complete Left MedGastroc Tibial S1-2 Incr 1+ 1+ Nml Nml 0 Nml Complete Left VastusMed Femoral L2-4 Nml Nml Nml Nml Nml 0 Nml Complete Left BicepsFemS Sciatic L5-S1 Nml Nml Nml Nml Nml 0 Nml Complete Left GluteusMed SupGluteal L4-S1 Nml Nml Nml Nml Nml 0 Nml Complete Paraspinal EMG ?Side Muscle Nerve Root Ins Act Fibs Psw Comment Left Lumbar Upper Rami Nml Nml Nml Left Lumbar Mid Rami Nml Nml Nml Left Lumbar Lower Rami Nml Nml Nml FINDINGS: Left peroneal nerve showed prolonged distal latency, very small amplitude and slow conduction velocity across the fibula. Left tibial nerve did not show any responses. Left sural nerve did not show any responses. Left superficial peroneal sensory nerve did not show any responses. Right tibial nerve and right sural nerve were within normal, with normal latencies and amplitudes. Concentric needle EMG was performed in selected muscles of the left lower extremity and lumbar paraspinals. Study revealed signs of electric abnormalities as shown in the table below. Left abductor hallucis, medial gastrocnemius and anterior tibialis muscles showed increased insertional activity, PSWs and fibrillations. No denervation seen on more proximal muscles. No denervation seen on lumbar paraspinals. IMPRESSION: 1. This is an abnormal study. 2. 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 3. There is electrodiagnostic evidence left tibial neuropathy, after it branches off the sciatic nerve, distal to short head of biceps femoris muscle. 4. There is no electrodiagnostic evidence for lumbar radiculopathy or peripheral neuropathy. CLINICAL COMMENT: Symptoms of weakness, pain and numbness appear to be consistent with above findings. I do think her strength is improved since last time I saw her. Continue rehab/PT for strengthening. Consider AFO for footdrop. Repeat EMG in 6 months. Thank you for your kind referral. Mini Watkins MD, EFREN Board Certified, [place] [employer] and [employer] (ABPMR) Board Certified, [place] [employer] (ABEM) CODIN [id number] MTDD
== END 2023-10-20 11:16 | disposition home or self-care (01) ==
LOC: HO.NEURO 11:15
PROVIDERS: PCP Internal Medicine; Visit Provider Physician Assistant
DX: R20.0 Anesthesia of skin (principal); R20.2 Paresthesia of skin
CPT/HCPCS: 95886; 95909

== ENCOUNTER → 2023-10-20 11:18 | Outpatient (BNV) | payer OTHER, SELFPAY | PROVIDERS: PCP Internal Medicine; Visit Provider Physical Medicine & Rehabilitation | DX: G57.82 Other specified mononeuropathies of left lower limb (principal) | CPT/HCPCS: 95886; 95909 ==

== ENCOUNTER 2023-10-30 09:39 | Outpatient (AMB) | payer OTHER, SELFPAY ==
--- NOTE | 2023-10-30 09:41 | A.OFFVIS_ITS ---
Intake Vital Signs 10/30/23 09:43 Height 5 ft 3 in Weight 153 lb BMI 27.1 Intake Visit Reasons: PO- 09/12 Left Arm Fasciotomy Intake Note: Evita payne 33 year old female presents today for a post-op wound check s/p left arm fasciotomy, DOS 09/12/23 NE. Patient reports that she is doing well, states that she continues to do dressing changes as instructed. Allergies No Known Allergies Allergy (Verified 10/30/23 09:45) HPI PO- 09/12 Left Arm Fasciotomy HPI Details 33-year-old female who returns to [facility] today for post-op left arm fasciotomy, 09/12/[address] Long. She continues to have numbness in her hand and forearm but is doing well overall. She also reports she had a burn due to dropping some boiling water on her left hand. She has no other concerns today. [facility] Medical History Rash Substance abuse Social History Household Members: Family and Children Household Members Other:: Parents, siblings, son Housing: House Do you presently have visiting nurse or other home services: No Unable to assess alcohol history related to: Unable to respond Alcohol intake: former Patient Tobacco Use Status: Former Tobacco user Tobacco use type: Cigarette Substance Use Type: Heroin Review of Systems Const All systems reviewed & are unremarkable except as noted in HPI and below Physical Exam Vital Signs: BMI result Body Mass Index 27.1 Extrem Other: Left arm: Incision well healed. There is no surrounding erythema or swelling. She continues to have numbness in her forearm and hand. She does have activation of brachial radialis and triceps. Pulses are intact. She has a superficial burn to the left palm. Assessment & Plan Assessment & Plan (1) Compartment syndrome of forearm: Code(s): T79.A19A - Traumatic compartment syndrome of unspecified upper extremity, i nitial encounter Plan She will transition to dry dressing only until fully closed. I did give her a refill of gabapentin and also refilled her oxycodone. I did stress the importance of getting her dosing every 6 hours and also sent a prescription of Silvadene to the pharmacy for her left hand as she had a superficial burn from some boiling water. I would like to see her back in 1 month for a routine follow-up, sooner if needed. Medications: New silver sulfadiazine 1% (Silvadene) apply a 1.5 mm thickness 1 appl topical BID PRN 20 grams 1RF wound healing Refilled gabapentin 300 mg PO TID 90 caps 3RF 30 days oxycodone Partial Fill upon patient request. 5 mg PO Q4-6H PRN 42 tabs 0RF pain 7 days Z96.652 - Presence of left artificial knee joint Patient Instructions: Scribed for Zackary Galvez PA-C, by Garo Mccann medical technical writer, on 10/30/2023 at 9:45 AM EST. I, Zackary Galvez PA-C, have personally reviewed and agree with the information entered by the scribe. Coding Level of Care Code Global (93460) Diagnoses Compartment syndrome of forearm T79.A19A
[2023-10-30 09:43] VITALS: BMI 27.1
== END 2023-10-30 10:13 | disposition home or self-care (01) ==
PROVIDERS: PCP Internal Medicine; Visit Provider Physician Assistant
DX: T79.A19A Traumatic compartment syndrome of unspecified upper extremity, initial encounter (principal)
CPT/HCPCS: 99024

== ENCOUNTER → 2023-10-30 09:39 | Outpatient (BNVA) | payer OTHER, SELFPAY | PROVIDERS: PCP Internal Medicine; Visit Provider Physician Assistant | DX: T79.A1 Traumatic compartment syndrome of upper extremity (principal) | CPT/HCPCS: 99212 ==

== ENCOUNTER 2023-11-27 08:30 | Outpatient (AMB) | payer OTHER, SELFPAY ==
--- NOTE | 2023-11-27 08:33 | MHC.OFFVIS ---
Intake Vital Signs 11/27/23 08:34 Height 5 ft 3 in Weight 153 lb BMI 27.1 Intake Visit Reasons: PO- 09/12/23 Left Arm Fasciotomy Intake Note: Evita payne 33 year old female presents today for a post-op wound check s/p left arm fasciotomy, DOS 09/12/23 NE. Patient reports that she is doing well and has D/C dressing changes. Allergies No Known Allergies Allergy (Verified 11/27/23 08:36) Medication List - Last Reconciled 11/27/23 by Zackary Galvez PA-C acetaminophen 650 mg (2 x 325 mg) PO Q4H PRN 30 days albuterol sulfate 90 mcg/actuation (Ventolin HFA) 2 puffs inhalation RQ4H PRN 30 days carvedilol 3.125 mg See Protocol PO BID 90 days diphenhydramine HCl 25 mg PO Q6H PRN docusate sodium 100 mg PO BID 14 days escitalopram oxalate 5 mg PO DAILY 30 days gabapentin 300 mg PO TID 30 days hydrocortisone 1% 1 appl See Protocol topical DAILY 30 days ondansetron 4 mg PO Q8H PRN oxycodone 5 mg PO Q6H PRN 7 days silver sulfadiazine 1% (Silvadene) 1 appl topical BID PRN HPI PO- 09/12/23 Left Arm Fasciotomy HPI Details 33-year-old female who returns to the office today for post-op left arm fasciotomy, 09/12/[address] Long. She states she has improvement in her arm and is doing well overall. She takes oxycodone for her pain as instructed but has not been taking gabapentin for about a month. She has discontinued performing the dressing changes. She has no other concerns today. [facility] Medical History Rash Substance abuse Social History Household Members: Family and Children Household Members Other:: Parents, siblings, son Housing: House Do you presently have visiting nurse or other home services: No Unable to assess alcohol history related to: Unable to respond Alcohol intake: former Patient Tobacco Use Status: Former Tobacco user Tobacco use type: Cigarette Substance Use Type: Heroin Review of Systems Const All systems reviewed & are unremarkable except as noted in HPI and below Physical Exam Vital Signs: BMI result Body Mass Index 27.1 Extrem Other: Left arm: Incision well healed. There is no surrounding erythema or swelling. She continues to have numbness in her forearm and hand. She does have activation of brachial radialis and triceps. slight activation of wris extension. Pulses are intact. Left foot she is able to dorsiflex to neutral and plantar flex to 45 deg Assessment & Plan Assessment & Plan (1) Compartment syndrome of forearm: Code(s): T79.A19A - Traumatic compartment syndrome of unspecified upper extremity, initial encounter Plan Dr. Long was available to see the patient with me today. She will continue working on occupational therapy and physical therapy for her LUE and LLE. I did send a prescription refill of gabapentin to her pharmacy as she is been off of it for about a month due to miscommunication with the pharmacy. We also discussed her oxycodone and would be weening it down to three times a day. She is content with this plan and will see us back in 4-6 weeks, sooner if needed. Medications: Refilled gabapentin 300 mg PO TID 30 days 90 caps 3RF gabapentin 300 mg PO TID 90 caps 3RF 30 days Patient Instructions: Scribed for Zackary Galvez PA-C, by Garo Mccann medical assistant, on 11/27/2023 at 8:30 AM TEJAL. Zackary Patel PA-C, have personally reviewed and agree with the information entered by the scribe. Coding Level of Care Code Est Pt Level 3 (53663) Diagnoses Compartment syndrome of forearm T79.A19A
[2023-11-27 08:34] VITALS: BMI 27.1
== END 2023-11-27 09:31 | disposition home or self-care (01) ==
PROVIDERS: PCP Internal Medicine; Visit Provider Physician Assistant
DX: T79.A12D Traumatic compartment syndrome of left upper extremity, subsequent encounter (principal)
CPT/HCPCS: 99213

== ENCOUNTER → 2023-11-27 08:30 | Outpatient (BNVA) | payer OTHER, SELFPAY | PROVIDERS: PCP Internal Medicine; Visit Provider Physician Assistant | DX: T79.A1 Traumatic compartment syndrome of upper extremity (principal) | CPT/HCPCS: 99212 ==

== ENCOUNTER 2023-12-06 13:24 | Outpatient (REF) | payer OTHER, SELFPAY ==
--- NOTE | 2023-12-06 13:26 | EMG_ITS ---
Chief complaint: Initially presented with loss of strength and sensation on entire left arm. Please see past hospital records for full history. She has been going to physical therapy and has regained some strength on left shoulder abduction, elbow extension and pronation (2-/5 at most). Her fingers remain flexed and unable to extend or abduct. She has a wrist drop. She says she has regained some sensation on left lateral arm and forearm, but no sensation on fingers. Reason for referral: Evaluate for brachial plexopathy Referred by: Zackary KINCAID Procedure done: Left upper extremity NCS/EMG Precautions and/or limitations: None The limb temperature was monitored continuously and remained between 32-36 degrees C during the performance of the NCS. Nerve Conduction Studies Anti Sensory Summary Table ?Stim Site NR Onset (ms) Norm Onset (ms) Peak (ms) Norm Peak (ms) O-P Amp (?V) Norm O-P Amp Site1 Site2 Delta-0 (ms) Dist (cm) Jose Elias (m/s) Norm Jose Elias (m/s) Left Lat Ante Brach Cutan Anti Sensory (Lat Forearm) Lat Biceps NR Lat Biceps Lat Forearm 0.0 Left Med Ante Brach Cutan Anti Sensory (Med Forearm) Elbow NR Elbow Med Forearm 0.0 Left Median Anti Sensory (2nd Digit) Wrist NR <3.6 >10 Wrist 2nd Digit 14.0 Left Radial Anti Sensory (Thumb) Forearm NR <3.1 Forearm Thumb 0.0 Left Ulnar Anti Sensory (5th Digit) Wrist NR <3.7 >15.0 Wrist 5th Digit 14.0 Motor Summary Table ?Stim Site NR Onset (ms) Norm Onset (ms) O-P Amp (mV) Norm O-P Amp iAmp (mV) Amp (1st) (%) Site1 Site2 Delta-0 (ms) Dist (cm) Jose Elias (m/s) Norm Jose Elias (m/s) Left Median Motor (Abd Poll Brev) Wrist NR <3.9 >4.5 Elbow Wrist 0.0 >45 Elbow NR Left Radial Motor (Arm) Wrist NR <2.5 >1.7 Wrist Arm 0.0 Mid Forearm NR Mid Forearm Wrist 0.0 >60 Elbow NR Elbow Mid Forearm 0.0 Left Ulnar Motor (Abd Dig Minimi) Wrist NR <3.0 >5 B Elbow Wrist 0.0 >45 B Elbow NR A Elbow B Elbow 0.0 >45 A Elbow NR EMG ?Side Muscle Nerve Root Ins Act Fibs Psw Amp Dur Poly Recrt Int Pat Comment Left 1stDorInt Ulnar C8-T1 Nml Nml Nml Nml Nml 0 Nml Complete could not activate Left FlexCarRad Median C6-7 Nml Nml Nml Nml Nml 0 Nml Complete could not activate Left Biceps Musculocut C5-6 Incr 1+ 1+ Nml Nml 0 Nml Complete could not activate Left Triceps Radial C6-7-8 Nml Nml Nml Nml Nml 0 Nml Complete Left Deltoid Axillary C5-6 Incr 1+ 1+ Nml Nml 0 Nml Complete Left Abd Poll Brev Median C8-T1 Nml Nml Nml Nml Nml 0 Nml Complete could not activate Left Supraspinatus SupraScap C5-6 Nml Nml Nml Incr Incr 0 Nml Complete Paraspinal EMG ?Side Muscle Nerve Root Ins Act Fibs Psw Comment Left Cervical Upper Rami Nml Nml Nml Left Cervical Mid Rami Nml Nml Nml Left Cervical Lower Rami Nml Nml Nml FINDINGS: All motor and sensory nerves tested did not show any response. Concentric needle EMG was performed in selected muscles of the left upper extremity and cervical paraspinals. Study revealed signs of electric abnormalities as shown in the table below. Left biceps and deltoid showed increased insertional activity, PSWs and fibrillations. Left supraspinatus showed increased amplitude and duration. Note that she is unable to activate most of these muscles tested. No denervation seen on cervical paraspinals. IMPRESSION: 1. This is an abnormal study. 2. Acute denervation and mild chronic reinnervation seen on C5-6 innervated muscles. Nerve conduction abnormal (no response) from left median, ulnar, radial, LAC, and MAC nerves. These findings suggest abnormalities affecting all 3 trunks (upper, middle, posterior) trunks of the brachial plexus. 3. There is no electrodiagnostic evidence for cervical radiculopathy. CLINICAL COMMENT: Continue rehab/PT especially if patient is regaining some clinical improvement. Consider repeating EMG/NCS in 3 months. Thank you for your kind referral. Mini Watkins MD, EFREN Board Certified, [place] [employer] and [employer] (ABPMR) Board Certified, [place] [employer] Electrodiagnostic [employer] (ABEM) CODIN [id number] MTDD
== END 2023-12-06 13:25 | disposition home or self-care (01) ==
LOC: HO.NEURO 13:24
PROVIDERS: PCP Internal Medicine; Visit Provider Physician Assistant
DX: R20.0 Anesthesia of skin (principal); R20.2 Paresthesia of skin
CPT/HCPCS: 95886; 95910

== ENCOUNTER → 2023-12-06 13:26 | Outpatient (BNV) | payer OTHER, SELFPAY | PROVIDERS: PCP Internal Medicine; Visit Provider Physical Medicine & Rehabilitation | DX: G54.8 Other nerve root and plexus disorders (principal) | CPT/HCPCS: 95886; 95910 ==

== ENCOUNTER 2023-12-27 11:19 | Outpatient (AMB) | payer OTHER, SELFPAY ==
[2023-12-27 11:29] VITALS: BP 110/70; PULSE 70; O2SAT 98; BMI 27.1
--- NOTE | 2023-12-27 11:29 | A.OFFPC_ITS ---
Vital Signs 12/27/23 11:29 Height 5 ft 3 in Weight 153 lb BMI 27.1 BP 110/70 Blood Pressure Location Rt brachial Position Sitting Pulse 70 Pulse Source Pulse Oximeter Pulse Oximetry (%) 98 Oxygen Delivery Method Room Air Intake Visit Reasons: Re-establish care/ok per Dr. Skinner/Notes in [facility] Intake Note: Pt is here today to re-establish care Allergies No Known Allergies Allergy (Verified 12/27/23 11:59) Medication List - Last Reconciled 12/27/23 by Vivian Skinner MD acetaminophen 650 mg (2 x 325 mg) PO Q4H PRN 30 days albuterol sulfate 90 mcg/actuation (Ventolin HFA) 2 puffs inhalation RQ4H PRN 30 days carvedilol 3.125 mg See Protocol PO BID 90 days gabapentin 300 mg PO TID 30 days oxycodone 5 mg PO Q8H PRN 7 days Tobacco use date assessed: 12/27/23 Dental Screening Dental Screen Date: 12/27/23 Did you have a dental visit in the last 12 months?: No Was dental information given to patient?: No HPI Re-establish care/ok per Dr. Skinner/Notes in [facility] HPI Details 33-year-old, here to reestablish care he re . She has past medical history significant for opioid use disorder. Had the relapse last year, history of overdue, and admitted for compartment syndrome of left forearm that required ICU level of care and involved multiple surgeries/debridement 08/16/2023. 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 Rash Substance abuse Surgical History (Updated 12/31/23 @ 23:19 by Vivian Skinner MD) History of fasciotomy Family History Brother Substance use disorder Paternal Aunt Substance use disorder Maternal Aunt Substance use disorder Social History Household Members: Family and Children Household Members Other:: Parents, siblings, son Housing: House Do you presently have visiting nurse or other home services: No Unable to assess alcohol history related to: Unable to respond Alcohol intake: former Patient Tobacco Use Status: Current everyday Tobacco user Tobacco use type: Cigarette Cigarettes Per Day: 4 e-Cigarette/Vaping Use: Never Used Substance Use Type: Heroin service: No Current occupational status: unemployed Cognitive needs: No Hearing needs: No Vision needs: Yes Questionnaire PHQ-9 Over the last 2 weeks, how often have you been bothered by any of the following problems? 1. Little interest or pleasure in doing things: more than half the days 2. Feeling down, depressed, or hopeless: more than half the days 3. Trouble falling or staying asleep, or sleeping too much: nearly every day 4. Feeling tired or having little energy: more than half the days 5. Poor appetite or overeating: more than half the days 6. Feeling bad about yourself - or that you are a failure or have let yourself or your family down: more than half the days 7. Trouble concentrating on things, such as reading the newspaper or watching television: several days 8. Moving or speaking so slowly that other people could have noticed. Or the opposite - being so fidgety or restless that you have been moving around a lot more than usual: several days 9. Thoughts that you would be better off or of hurting yourself in some way: not at all Total score: 15 Depression Screening Interpretation: Positive Depression Screening Follow-up: Existing condition and Community Mental Health Worker F/U Depression Screening Done: Yes Source: Developed by Drs. Alexandru Giordano, Edna Chaidez, Vito Harris and colleagues, with an educational elodia from [employer]. Thrive Questionnaire Date Thrive assessed: 12/27/23 I am a: Patient What is your living situation today?: I have a steady place to live Within the past 12 months, did the food you bought not last and you didn't have the money to get more?: Sometimes True Within the past 12 months, did you worry whether your food would run out before you got money to buy more?: Sometimes True Do you have trouble paying for medicines?: No Do you have trouble getting transportation to medical appointments?: No Do you have trouble paying your heating and electricity bill?: No Do you have trouble taking care of your child, family member or friend?: No Do you have trouble with day-to-day activities such as bathing, preparing meals, shopping, managing finances, etc.?: Yes Are you currently unemployed and looking for a job?: Yes Are you interested in more education?: No THRIVE Score: 2 AUDIT C Alcohol Use Questionnaire (AUDIT-C) 1. How often do you have a drink containing alcohol?: Never Total Score: 0 ROSALES-7 AMB Questionnaire ROSALES-7 Date ROSALES - 7 assessed: 12/27/23 Feeling nervous, anxious, or on edge: 2 = More than half the days Not being able to stop or control worryin = Several days Worrying too much about different things: 2 = More than half the days Trouble relaxin = Nearly every day Being so restless that it is hard to sit still: 1 = Several days Becoming easily annoyed or irritable: 1 = Several days Feeling afraid as if something awful might happen: 0 = Not at all Total ROSALES-7 score (0-4 normal; 5-9 mild; 10-14 moderate; 15-21 severe): 10 Source: Developed by Drs. Alexandru Giordano, Edna Chaidez, Vito Harris and colleagues, with an educational elodia from [employer]. ROSALES-7 Assessment Billing ROSALES-7 Assessment Tool: ROSALES-7 Assessment 81562 Review of Systems Const Denies fatigue, Denies fever(s) and Denies headache(s) Eyes Denies change in vision ENT Denies dizziness, Denies headache(s) and Denies nasal congestion Card Denies chest pain, Denies lightheadedness, Denies palpitations and Denies dyspnea Resp Denies chest congestion, Denies cough and Denies dyspnea GI Denies abdominal pain, Denies change in bowel habits and Denies heartburn Denies hematuria, Denies urinary frequency, Denies dysuria and Denies urinary urgency Musc Reports as per HPI, Reports atrophy (Left arm), Reports deformity (Left forearm), Reports limited range of motion (Left elbow and wrist, and fingers in left hand), Reports muscle weakness, Reports stiffness and Reports tingling Skin/Breast Reports as per HPI Neuro Denies dizziness, Denies headache(s) and Reports tingling Psych Reports no additional complaints and Reports as per HPI Endo Denies fatigue, Denies polydipsia, Denies polyuria and Denies palpitations Inocente/Lymph Denies easy bruising Aller/Immun Denies seasonal rhinorrhea Physical exam (Primary Care) Vital Signs: Last Vital Signs Pulse 70 12/27/23 11:29 BP 110/70 12/27/23 11:29 Pulse Ox 98 12/27/23 11:29 Oxygen Delivery Method Room Air 12/27/23 11:29 BMI result Body Mass Index 27.1 Tobacco/Smoking Status: Tobacco use Status Tobacco use date assessed 12/27/23 12/27/23 11:31 Patient Tobacco Use Status Current everyday Tobacco 12/27/23 11:40 Tobacco use type Cigarette 12/27/23 11:31 e-Cigarette/Vaping Use Never Used 12/27/23 11:40 PHQ-9: PHQ-9 Score PHQ-9: Total score 15 12/27/23 12:29 Depression Screening Interpretation: Positive Depression Screening Follow-up: Existing condition and Community Mental Health Worker F/U Thrive Assessment: Date of Thrive Assessment Date Thrive assessed 12/27/23 12/27/23 11:42 Const General: comfortable, no acute distress and alert Orientation/consciousness: patient oriented x3 HENMT Ears: external ears normal General nose exam: Normal external nose present Mouth: moist mucous membranes Eyes General: appearance normal, both eyes and all related structures Neck Neck: Yes full ROM, Yes no lymphadenopathy and Yes supple Resp Effort & Inspection: normal respiratory effort and able to speak in complete sentences Auscultation: clear to auscultation bilaterally Cardio Rate: regular rate Rhythm: regular rhythm Heart sounds: S1 normal heart sound present and S2 normal heart sound present GI Palpation (GI): Soft to palpation, nontender and no masses Auscultation: normal bowel sounds Skin Other: Healed surgical scars on left forearm and hand Neuro General: patient oriented x3, gait normal and no focal motor deficits Cranial nerves: Yes CN's II-XII intact bilaterally Cognition (Neuro): normal cognition Extrem Other: Decreased range of motion in left arm, unable to make fist with left hand Psych Appearance: grossly normal and well kempt Mental Status: mental status grossly normal Speech and movement: Normal speech and movement present Affect: normal affect Attitude: cooperative Thought process: Normal thought process present Thought content: Normal thought content present Assessment and Plan Assessment & Plan (1) Left tibial neuropathy: Code(s): G57.42 - Lesion of medial popliteal nerve, left lower limb (2) Neuropathy of left peroneal nerve: Code(s): G57.32 - Lesion of lateral popliteal nerve, left lower limb Plan: Referred for physical therapy (3) MDD (major depressive disorder): Code(s): F32.9 - Major depressive disorder, single episode, unspecified Qualifiers: Major depression recurrence: recurrent Active/Remission status: currently active Major depression episode severity: moderate Qualified Code(s): F33.1 - Major depressive disorder, recurrent, moderate Plan: Prescribed the bupropion HCL, 150 mg per tablet to be taken in the morning. Advised to cut back a fall her smoking, medication will help with her breathing Referred to our mental health coordinator, Dory, for assistance in getting in to be seen by psychiatry and therapy as soon as possible (4) Opioid use disorder: Code(s): F11.90 - Opioid use, unspecified, uncomplicated Plan: Referred to Nita Swan for further evaluation management (5) Compartment syndrome of forearm: Code(s): T79.A19A - Traumatic compartment syndrome of unspecified upper extremity, initial encounter Plan: Surgical wounds are healing well, currently going through physical therapy Orders: Orders PT Evaluation and Treatment 12/27/23 G57.32 - Lesion of lateral popliteal nerve, left lower limb, G57.42 - Lesion of medial popliteal nerve, left lower limb Referrals Addiction Medicine Referral F11.90 - Opioid use, unspecified, uncomplicated, F14.91 - Cocaine use, unspecified, in remission Medications: New bupropion HCl 150 mg PO QAM 30 tabs 1RF Coding Level of Care Code New Pt Level 4 (85999) Diagnoses Left tibial neuropathy G57.42 Neuropathy of left peroneal nerve G57.32 Moderate episode of recurrent major depressive disorder F33.1 Major depression recurrence: recurrent Active/Remission status: currently active Major depression episode severity: moderate Opioid use disorder F11.90 Compartment syndrome of forearm T79.A19A Additional Codes ROSALES-7 Assessment Billing - ROSALES-7 Assessment Tool: ROSALES-7 Assessment 24841 ([id number])
== END 2023-12-27 14:10 | disposition home or self-care (01) ==
PROVIDERS: PCP Internal Medicine; Visit Provider Internal Medicine
DX: G57.42 Lesion of medial popliteal nerve, left lower limb (principal); F33.1 Major depressive disorder, recurrent, moderate; T79.A19A Traumatic compartment syndrome of unspecified upper extremity, initial encounter; G57.32 Lesion of lateral popliteal nerve, left lower limb; F11.90 Opioid use, unspecified, uncomplicated
CPT/HCPCS: 96127; 99204

== ENCOUNTER 2024-01-08 08:28 | Outpatient (AMB) | payer OTHER, SELFPAY ==
--- NOTE | 2024-01-08 08:37 | A.OFFVIS_ITS ---
Intake Vital Signs 01/08/24 08:41 Height 5 ft 3 in Weight 153 lb BMI 27.1 Intake Visit Reasons: OV- S/P 09/12/23 Left Arm Fasciotomy Intake Note: Evita payne 33 year old female presents today for a post-op wound check s/p left arm fasciotomy, DOS 09/12/23 NE. Patient reports she is doing well, states no concerns today. Allergies No Known Allergies Allergy (Verified 01/08/24 08:43) HPI OV- S/P 09/12/23 Left Arm Fasciotomy HPI Details 33-year-old female who returns to the [facility] today for a follow-up of left arm fasciotomy, 09/12/[address] Long. She states she has improvement in her pain however she does c/o constant achiness in her arm. She is working on occupational therapy as instructed. She continues to use her splint for her arm. She is doing well overall and has no other concerns today. 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 Rash Substance abuse Surgical History History of fasciotomy Family History Brother Substance use disorder Paternal Aunt Substance use disorder Maternal Aunt Substance use disorder Social History Household Members: Family and Children Household Members Other:: Parents, siblings, son Housing: House Do you presently have visiting nurse or other home services: No Unable to assess alcohol history related to: Unable to respond Alcohol intake: former Patient Tobacco Use Status: Current everyday Tobacco user Tobacco use type: Cigarette Cigarettes Per Day: 4 e-Cigarette/Vaping Use: Never Used Substance Use Type: Heroin service: No Current occupational status: unemployed Cognitive needs: No Hearing needs: No Vision needs: Yes Review of Systems Const All systems reviewed & are unremarkable except as noted in HPI and below Physical Exam Vital Signs: BMI result Body Mass Index 27.1 Extrem Other: Left arm: Incision is well healed. She has good activation of triceps. She is able to flex approximately 100 degrees at her elbow. She can slightly activate wrist extension and also wrist flexion with significant weakness. Her fingers are held in a flexed contracture position. She has good sensation throughout the arm. There is no sensation over the radial nerve distribution. Assessment & Plan Assessment & Plan (1) Compartment syndrome of forearm: Code(s): T79.A19A - Traumatic compartment syndrome of unspecified upper extremity, initial encounter (2) Left tibial neuropathy: Code(s): G57.42 - Lesion of medial popliteal nerve, left lower limb (3) Neuropathy of left peroneal nerve: Code(s): G57.32 - Lesion of lateral popliteal nerve, left lower limb (4) Brachial plexopathy: Code(s): G54.0 - Brachial plexus disorders Plan Dr. Long was available to see the patient with me today. The plan at this time is to continue with physical therapy and occupational therapy. A referral to pain management was placed to try to better help with her pain and neurological symptoms. We will also get her in with a hand specialist to discuss possible tendon transfer for better functional outcome. She was also informed about an upcoming EMG study over the next few months to monitor the status of her nerve function. She is content with this plan. She was also prescribed oxycodone three times a day until she is established with pain management. Orders: Referrals Pain Management Referral G54.0 - Brachial plexus disorders, G57.32 - Lesion of lateral popliteal nerve, left lower limb, G57.42 - Lesion of medial popliteal nerve, left lower limb, T79.A19A - Traumatic compartment syndrome of unspecified upper extremity, initial encounter Medications: Refilled oxycodone Partial Fill upon patient request. 5 mg PO Q8H PRN 21 tabs 0RF pain 7 days S14.3XXA - Injury of brachial plexus, initial encounter, T79.A19A - Traumatic compartment syndrome of unspecified upper extremity, initial encounter, Z98.890 - Other specified postprocedural states Patient Instructions: Scribed for Zackary Galvez PA-C, by Garo Mccann medical laboratory specialist, on 01/08/2024 at 8:30 AM TEJAL. Zackary Paetl PA-C, have personally reviewed and agree with the information entered by the scribe. Coding Level of Care Code Est Pt Level 3 (80138) Diagnoses Compartment syndrome of forearm T79.A19A Left tibial neuropathy G57.42 Neuropathy of left peroneal nerve G57.32 Brachial plexopathy G54.0
[2024-01-08 08:41] VITALS: BMI 27.1
== END 2024-01-08 10:50 | disposition home or self-care (01) ==
PROVIDERS: PCP Internal Medicine; Visit Provider Physician Assistant
DX: T79.A12A Traumatic compartment syndrome of left upper extremity, initial encounter (principal); G57.42 Lesion of medial popliteal nerve, left lower limb; G57.32 Lesion of lateral popliteal nerve, left lower limb; G54.0 Brachial plexus disorders
CPT/HCPCS: 99214

== ENCOUNTER → 2024-01-08 08:28 | Outpatient (BNVA) | payer OTHER, SELFPAY | PROVIDERS: PCP Internal Medicine; Visit Provider Physician Assistant | DX: T79.A1 Traumatic compartment syndrome of upper extremity (principal); G57.42 Lesion of medial popliteal nerve, left lower limb; G57.32 Lesion of lateral popliteal nerve, left lower limb; G54.0 Brachial plexus disorders | CPT/HCPCS: 99212 ==

== ENCOUNTER 2024-01-12 09:22 | Outpatient (AMB) | payer OTHER, SELFPAY ==
[2024-01-12 09:43] VITALS: BP 120/79; PULSE 77; RESP 12; BMI 26.9
--- NOTE | 2024-01-12 09:43 | MHC.OFFVIS ---
Intake Vital Signs 01/12/24 09:43 Height 5 ft 3 in Weight 152 lb BMI 26.9 BP 120/79 Blood Pressure Location Rt brachial Position Sitting Respiration 12 Pulse 77 Pulse Source Pulse Oximeter Intake Visit Reasons: EVALUATION FOR NERVE PAIN/PER DR VILLAFUERTE Allergies No Known Allergies Allergy (Verified 01/12/24 09:45) Medication List - Last Reconciled 01/12/24 by Tala Montiel LPN gabapentin 300 mg PO TID 30 days oxycodone 5 mg PO Q8H PRN 7 days HPI EVALUATION FOR NERVE PAIN/PER DR VILLAFUERTE HPI Details 33-year-old female who presents today to the office for the evaluation of neuralgia. She reports pain in her elbow, hand, shoulder, and left foot region. It is rated at 8/10 in intensity. She describes her pain as an aching stabbing sensation associated with pins and needles, as well as numbness. They are thought to be secondary to a neuropathic injury from prolonged immobility following a recreational overdose. She was admitted for compartmental syndrome of the left forearm that required ICU level of care and involved multiple surgeries/debridement on 08/16/23. She continued to use her sprint for her arm. She is taking oxycodone 5 milligrams three times a day and gabapentin 300 milligrams three times a day. She was ordered for a nerve conduction study that has not been done yet. She is also working with physical therapy and occupational therapy. She reports constant foot pain. She walks with a limp. She is not able to touch her toe nails due to pain. She describes her pain as an aching sensation. She has noticed a bluish discoloration in her toes. She developed neuropathy in her left tibial and peroneal nerves.? 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 Rash Substance abuse Surgical History History of fasciotomy Family History Brother Substance use disorder Paternal Aunt Substance use disorder Maternal Aunt Substance use disorder Social History Household Members: Family and Children Household Members Other:: Parents, siblings, son Housing: House Do you presently have visiting nurse or other home services: No Unable to assess alcohol history related to: Unable to respond Alcohol intake: former Patient Tobacco Use Status: Current everyday Tobacco user Tobacco use type: Cigarette Cigarettes Per Day: 4 e-Cigarette/Vaping Use: Never Used Substance Use Type: Heroin service: No Current occupational status: unemployed Cognitive needs: No Hearing needs: No Vision needs: Yes Review of Systems Const All systems reviewed & are unremarkable except as noted in HPI and below Physical Exam Vital Signs: Last Vital Signs Pulse 77 01/12/24 09:43 Resp 12 01/12/24 09:43 BP 120/79 01/12/24 09:43 BMI result Body Mass Index 26.9 General: Appears afebrile. Alert and oriented. Mood and affect appropriate. Follows and participates in conversation appropriately. Respiratory effort is unlabored. Able to transition from sit to stand unassisted. Ambulates with bilaterally normal heel strike and toe off. There is a well-healed incision across the midline in her left forearm. She has the normal sensation of touch across her arm and medial forearm. The distal alonzo forearm and hand are relatively long to find touch. Both of her feet are cold to touch. There is a bluish discoloration of the right toes. The left toes are normal in appearance, but there is allodynia, abnormal pins and needle sensation with touch. Results Reviewed Results Reviewed: 08/16/23: US VENOUS ULTRASOUND WITH DOPPLER LOWER EXTREMITY, RIGHT FINDINGS: There is normal venous compression and respiratory variation and augmented flow. The visualized common femoral vein, superficial femoral vein, profunda femoral vein, popliteal vein, and the trifurcation region shows no evidence of deep venous thrombosis. There is no significant popliteal fossa cyst. Left common femoral vein is patent. If the patient's symptoms persist, followup ultrasound in 5 days 7 days might be of value to exclude proximal propagation from a non-visualized calf vein. IMPRESSION: No DVT demonstrated in the right lower extremity. 08/16/23: US VENOUS WITH DOPPLER UPPER EXTREMITY, LEFT FINDINGS: Antecubital fossa incompletely evaluated secondary to overlying wound VAC and dressing. Respiratory variation, normal compression, and augmented flow are noted throughout the upper extremity including the axillary, brachial, cubital, and radial and ulnar veins. There is normal flow in the internal jugular and subclavian veins. Previously visualized thrombus involving the distal cephalic vein is no longer appreciated. There is no visible deep or superficial thrombophlebitis. If the patient's symptoms progress, a follow-up ultrasound in 5 -7 days might be of value to exclude proximal propagation from a nonvisualized distal arm vein. IMPRESSION: 1. No DVT demonstrated in the left upper extremity. 2. Antecubital fossa incompletely evaluated secondary to overlying wound VAC and dressing. 3. Previously visualized thrombus involving the distal cephalic vein is no longer appreciated. Assessment & Plan Assessment & Plan (1) Brachial plexopathy: Code(s): G54.0 - Brachial plexus disorders Plan Discussed spinal cord stimulation in combination with physical therapy/occupational therapy as a possible treatment option. I think given her age she is a good candidate for restorative SCS for her denervation injuries when combined with aggressive occupational therapy. We can place 1 lead in the C-spine and 1 lead in the lumbar spine for her arm and leg neuropathic pain, respectively. I will place a referral for psychology clearance. Once we have received psychology clearance, we will plan for a trial of a [employer] spinal cord stimulator. The patient will receive a call from [facility] for the psychology assessment. A brochure was provided to the patient today. For the time being, I encouraged her to continue with occupational therapy and physical therapy. Scribed for Dr. Haji by Haroon Huang, medical insurance collector, on 01/12/2024. I, Dr. Haji, have personally reviewed and agree with the information entered by the scribe. Coding Level of Care Code New Pt Level 4 (00204) Diagnoses Brachial plexopathy G54.0
== END 2024-01-12 10:29 | disposition home or self-care (01) ==
PROVIDERS: PCP Internal Medicine; Referring Provider Orthopaedic Surgery; Visit Provider Internal Medicine
DX: G54.0 Brachial plexus disorders (principal)
CPT/HCPCS: 99204

== ENCOUNTER → 2024-01-12 09:22 | Outpatient (BNVA) | payer OTHER, SELFPAY | PROVIDERS: PCP Internal Medicine; Referring Provider Orthopaedic Surgery; Visit Provider Internal Medicine | DX: G54.0 Brachial plexus disorders (principal); Z79.891 Long term (current) use of opiate analgesic | CPT/HCPCS: 99202 ==

== ENCOUNTER → 2024-01-16 09:55 | Outpatient (REF) | payer OTHER, SELFPAY ==
--- NOTE | 2024-01-16 09:58 | CA_ITS ---
Transthoracic Echocardiogram Patient (Last, First, Middle): Evita Valverde M Gender: Female Date of : 1990 Age: 33 Procedure Date: 01/16/2024 Procedure Type: Transthoracic Echocardiogram Location: OP Height: 160.02 cm Weight: 68.04 kg BSA: 1.71 m2 Heart Rate: bpm BP: 120 / 80 mmHg Escort Patients: TO Referring MD: Ann Watts NP Symptoms: I42.9 - Cardiomyopathy, unspecified Study Quality: Adequate Conclusions: - The left ventricular systolic function is normal. The calculated ejection fraction is 63% by biplane method. Findings Left Ventricle Normal left ventricular cavity size. There is normal left ventricular wall thickness. The left ventricular systolic function is normal. The calculated ejection fraction is 63% by biplane method. There is no evidence of regional wall motion abnormalities. LV peak GLS -20.7%. Venous The inferior vena cava is normal in size and collapses greater than 50% with inspiration. Prior Study Comparison Changes noted compared to prior study dated: 09/15/2023. Improved LVEF. Measurements 2D Linear Measurements IVSd: 1.00 0.6-0.9/0.6-1.0 cm LVIDd: 5.14 3.9-5.3/4.2-5.9 cm LVIDd Index: 3.01 2.4-3.2/2.2-3.1 cm/m2 LVIDs: 3.16 2.0-3.6 cm LVPWd: 0.67 0.7-1.1 cm LV Mass: 187.08 67-162/88-224 g LV Mass Index: 109.40 43-95/49-115 g/m2 LVOT Diam: 2.20 3.0+(-)1.3 cm 2D Systolic Function EF 4C: 65.20 >55% EF 2C: 60.60 >55% EF BiP: 63.30 >55% LVOT LVOT Pk Jose Elias: 0.92 LVOT Mn Jose Elias: 0.67 LVOT VTI: 0.21 LVOT Pk Grad: 3.00 LVOT Mn Grad: 2.00 LVOT Diam: 2.20 LVOT Area: 3.80 Tricuspid Valve RA Press: 3.00 Updated in Other Vendor System with Status of Final Antione Burkett MD electronically signed on 01/16/2024 11:28:27 AM with status of Final
== END ==
LOC: HO.CARD 09:55
PROVIDERS: PCP Internal Medicine; Visit Provider Nurse Practitioner
DX: I42.9 Cardiomyopathy, unspecified (principal)
CPT/HCPCS: 93308; 93356

== ENCOUNTER → 2024-01-16 09:58 | Outpatient (BNV) | payer OTHER, SELFPAY | PROVIDERS: PCP Internal Medicine; Visit Provider Internal Medicine | DX: I42.9 Cardiomyopathy, unspecified (principal) | CPT/HCPCS: 93308 ==

== ENCOUNTER 2024-01-25 09:55 | Outpatient (AMB) | payer OTHER, SELFPAY ==
--- NOTE | 2024-01-25 09:58 | MHC.AM.SUB ---
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 Relapsed and overdosed in August [facility] hx: heroin- intranasal (not currently using), cocaine (past), marijuana (current a couple bowls a day ), tobacco (1/2 pack a day x 15 yrs) She has never shared needles Has previously trialed MTD and switched to suboxone which she tolerated well up until approx 1.5 years ago She reports she was discharged from her clinic due to tardiness to appointments She had to self taper off her suboxone which she reports was difficult hx of depression and anxiety, no providers NKA Surgical hx of fasciotomy to left arm due to compartment syndrome as result of overdose. 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 Rash Substance abuse Surgical History History of fasciotomy Family History Brother Substance use disorder Paternal Aunt Substance use disorder Maternal Aunt Substance use disorder Social History Household Members: Family and Children Household Members Other:: Parents, siblings, son Housing: House Do you presently have visiting nurse or other home services: No Unable to assess alcohol history related to: Unable to respond Alcohol intake: former Patient Tobacco Use Status: Current everyday Tobacco user Tobacco use type: Cigarette Cigarettes Per Day: 4 e-Cigarette/Vaping Use: Never Used Substance Use Type: Heroin service: No Current occupational status: unemployed Cognitive needs: No Hearing needs: No Vision needs: Yes Review of Systems Const Reports as per HPI Physical Exam Vital Signs: Last Vital Signs Pulse 66 01/25/24 10:07 BP 124/86 01/25/24 10:07 Pulse Ox 98 01/25/24 10:07 Oxygen Delivery Method Room Air 01/25/24 10:07 Const General: cooperative and no acute distress Psych Appearance: grossly normal Mental Status: mental status grossly normal Speech and movement: Normal speech and movement present Affect: normal affect Attitude: cooperative Results AMB 14 Panel Urine Drug Screen Urine Marijuana (THC) Positive Last Edit by Jeanette Candelario CMA on 01/25/24 10:10 Urine Cocaine Negative Last Edit by Jeanette Candelario CMA on 01/25/24 10:10 Urine Morphine Negative Last Edit by Jeanette Candelario CMA on 01/25/24 10:10 Urine Methamphetamine Negative Last Edit by Jeanette Candelario CMA on 01/25/24 10:10 Urine Amphetamine Negative Last Edit by Jeanette Candelario CMA on 01/25/24 10:10 Urine Benzodiazepine Negative Last Edit by Jeanette Candelario CMA on 01/25/24 10:10 Urine Barbiturates Negative Last Edit by Jeanette Candelario CMA on 01/25/24 10:10 Urine Methadone Negative Last Edit by Jeanette Candelario CMA on 01/25/24 10:10 Urine Buprenorphine Negative Last Edit by Jeanette Candelario CMA on 01/25/24 10:10 Urine Tricyclic Antidepressant Negative Last Edit by Jeanette Candelario CMA on 01/25/24 10:10 Urine MDMA Negative Last Edit by Jeanette Candelario CMA on 01/25/24 10:10 Urine Oxycodone Positive Last Edit by Jeanette Candelario CMA on 01/25/24 10:10 Urine Phencyclidine Negative Last Edit by Jeanette Candelario CMA on 01/25/24 10:10 Urine Propoxyphene Negative Last Edit by Jeanette Candelario CMA on 01/25/24 10:10 Results Reviewed Results Reviewed: Laboratory Last Values POC Urine Buprenorphine Negative 01/25/24 09:58 POC Urine Morphine Negative 01/25/24 09:58 POC Urine Oxycodone Positive 01/25/24 09:58 POC Urine Methadone Negative 01/25/24 09:58 POC Urine Propoxyphene Negative 01/25/24 09:58 POC Urine Barbiturates Negative 01/25/24 09:58 POC U Tricyclic Antidpr Negative 01/25/24 09:58 POC Urine PCP Negative 01/25/24 09:58 POC Ur Amphetamines Negative 01/25/24 09:58 POC Ur Methamphetamine Negative 01/25/24 09:58 POC Urine MDMA Negative 01/25/24 09:58 POC Ur Benzodiazepine Negative 01/25/24 09:58 POC Urine Cocaine Negative 01/25/24 09:58 POC Ur Marijuana (THC) Positive 01/25/24 09:58 Assessment & Plan Assessment & Plan (1) Opioid use disorder: Code(s): F11.90 - Opioid use, unspecified, uncomplicated Plan: -Referral for RVCC placed -Discussed with her the risks/benefits of not utilizing MAT in early recovery -Reviewed with her to come back any time she needs/wants or to call clinic with questions or concerns -She is declining follow up appointment at this time Orders: Orders AMB 14 Panel Urine Drug Screen Today Z51.81 - Encounter for therapeutic drug level monitoring Coding Level of Care Code New Pt Level 4 (28383) Diagnoses Opioid use disorder F11.90
[2024-01-25 10:07] VITALS: BP 124/86; PULSE 66; O2SAT 98
== END 2024-01-25 10:28 | disposition home or self-care (01) ==
PROVIDERS: PCP Internal Medicine; Visit Provider Nurse Practitioner Family
DX: F11.90 Opioid use, unspecified, uncomplicated (principal); Z51.81 Encounter for therapeutic drug level monitoring
CPT/HCPCS: 99204

== ENCOUNTER → 2024-01-25 09:55 | Outpatient (BNVA) | payer OTHER, SELFPAY | PROVIDERS: PCP Internal Medicine; Visit Provider Nurse Practitioner Family | DX: F11.20 Opioid dependence, uncomplicated (principal); F17.210 Nicotine dependence, cigarettes, uncomplicated; F12.90 Cannabis use, unspecified, uncomplicated; Z51.81 Encounter for therapeutic drug level monitoring | CPT/HCPCS: 80305; 99202 ==

== ENCOUNTER 2024-02-22 10:06 | Outpatient (AMB) | payer OTHER, SELFPAY ==
--- NOTE | 2024-02-22 10:06 | MHC.OFFVIS ---
Intake Vital Signs 02/22/24 10:07 Height 5 ft 3 in Weight 152 lb BMI 26.9 Intake Visit Reasons: Video - 09/12/23 Left Arm Fasciotomy Intake Note: Evita payne 33 year old female presents today VIA video call for a follow up of her left arm s/p left arm fasciotomy, DOS 09/12/23 NE. ?referral to joe Allergies No Known Allergies Allergy (Verified 02/22/24 10:07) HPI Video - 09/12/23 Left Arm Fasciotomy HPI Details Evita a 33 year old female presents today VIA video call for a follow up of her left arm s/p left arm fasciotomy, DOS 09/12/23 NE. ?referral to joe. She has seen pain management and is scheduled for a spinal stimulator once she is cleared. She feels that her pain is present but tolerable. Her function she states is improving but still stiff and limited. 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 Rash Substance abuse Surgical History History of fasciotomy Family History Brother Substance use disorder Paternal Aunt Substance use disorder Maternal Aunt Substance use disorder Social History Household Members: Family and Children Household Members Other:: Parents, siblings, son Housing: House Do you presently have visiting nurse or other home services: No Unable to assess alcohol history related to: Unable to respond Alcohol intake: former Patient Tobacco Use Status: Current everyday Tobacco user Tobacco use type: Cigarette Cigarettes Per Day: 4 e-Cigarette/Vaping Use: Never Used Substance Use Type: Heroin service: No Current occupational status: unemployed Cognitive needs: No Hearing needs: No Vision needs: Yes Physical Exam Vital Signs: BMI result Body Mass Index 26.9 Assessment & Plan Assessment & Plan (1) Compartment syndrome of forearm: Code(s): T79.A19A - Traumatic compartment syndrome of unspecified upper extremity, initial encounter Plan: Evita continues to improve. After she gets her spinal stimulator I would like to see her back and will evaluate her function and consider a referral to hand surgery. I explained this to her. She is in agreement. Telehealth Telehealth Location of provider rendering services: practice address Location of patient: address on file Patient Identification confirmed using: Name, : Yes Telehealth method: voice only Patient verbally consented to treatment: Yes Patient verbally consented to billing insurance company: Yes Patient informed of any privacy concerns related to visit: Yes Coding Level of Care Code Est Pt Level 3 (24328) Diagnoses Compartment syndrome of forearm T79.A19A
[2024-02-22 10:07] VITALS: BMI 26.9
== END 2024-02-22 10:25 | disposition home or self-care (01) ==
LOC: HO.HOS 10:06
PROVIDERS: PCP Internal Medicine; Visit Provider Orthopaedic Surgery
DX: T79.A19A Traumatic compartment syndrome of unspecified upper extremity, initial encounter (principal)
CPT/HCPCS: 99213

== ENCOUNTER → 2024-02-22 10:06 | Outpatient (BNVA) | payer OTHER, SELFPAY | PROVIDERS: PCP Internal Medicine; Visit Provider Orthopaedic Surgery ==

== ENCOUNTER 2024-03-14 12:58 | Outpatient (REF) | payer OTHER, SELFPAY ==
--- NOTE | 2024-03-14 13:01 | EMG_ITS ---
Chief complaint: Please see past notes for full history. She has paresthesias in bottom of left foot. No footdrop. Reason for referral: repeat NCS/EMG, compare to previous done 10/20/23 Referred by: Zackary KINCAID Procedure done: Left lower extremity NCS/EMG Precautions and/or limitations: None The limb temperature was monitored continuously and remained between 32-36 degrees C during the performance of the NCS. Nerve Conduction Studies Anti Sensory Summary Table ?Stim Site NR Onset (ms) Norm Onset (ms) Peak (ms) Norm Peak (ms) O-P Amp (?V) Norm O-P Amp Site1 Site2 Delta-0 (ms) Dist (cm) Jose Elias (m/s) Norm Jose Elias (m/s) Left Sural Anti Sensory (Lat Mall) Calf NR <4.0 >5.0 Calf Lat Mall 14.0 Motor Summary Table ?Stim Site NR Onset (ms) Norm Onset (ms) O-P Amp (mV) Norm O-P Amp iAmp (mV) Amp (1st) (%) Site1 Site2 Delta-0 (ms) Dist (cm) Jose Elias (m/s) Norm Jose Elias (m/s) Left Peroneal Motor (Ext Dig Brev) Ankle ? 5.3 <4.0 3.2 >2.5 4.0 100.0 Ankle Ext Dig Brev 5.3 0.0 B Fib ? 12.4 3.5 4.4 109.4 B Fib Ankle 7.1 33.0 46 >40 Poplt ? 13.2 3.5 4.4 109.4 Poplt B Fib 0.8 4.0 50 >40 Left Tibial Motor (Abd Ang Brev) Ankle ? 5.9 <5 0.4 >2.5 0.5 100.0 Ankle Abd Ang Brev 5.9 0.0 Knee ? 13.8 0.4 0.5 100.0 Knee Ankle 7.9 38.0 48 >40 EMG ?Side Muscle Nerve Root Ins Act Fibs Psw Amp Dur Poly Recrt Int Pat Comment Left AbdHallucis MedPlantar S1-2 Nml Nml Nml Nml Nml 0 Nml Complete Left AntTibialis Dp Br Peron L4-5 Nml Nml Nml Nml Nml 0 Nml Complete Left PostTibialis Tibial L5, S1 Incr Nml 1+ Nml Nml 0 Nml Complete Left MedGastroc Tibial S1-2 Incr Nml 1+ Nml Nml 0 Nml Complete Left VastusMed Femoral L2-4 Nml Nml Nml Nml Nml 0 Nml Complete FINDINGS: Left peroneal nerve now shows normal amplitudes, normal conduction velocity across fibular neck, but still prolonged distal latency. Left tibial nerve now present response, though still small amplitude and prolonged distal latency. Normal conduction velocity. Left sural nerve still remains absent. Concentric needle EMG was performed in selected muscles of the left lower extremity. Study revealed signs of electric abnormalities as shown in the table below but improvement. Small PSWs seen only on left posterior tibialis and medial gastrocnemius muscles. IMPRESSION: 1. This is an abnormal study. 2. Peroneal neuropathy across fibular neck is no longer seen. 3. Still see evidence of left tibial neuropathy or distal sciatic neuropathy, but improved from last EMG. CLINICAL COMMENT: Continue physical therapy. Thank you for your kind referral. Mini Watkins MD, EFREN Board Certified, [place] Board of Physical Medicine and Rehabilitation (ABPMR) Board Certified, [place] Board of Electrodiagnostic Medicine (ABEM) [facility] [id number] [facility]
== END 2024-03-14 12:59 | disposition home or self-care (01) ==
LOC: HO.NEURO 12:58
PROVIDERS: PCP Internal Medicine; Visit Provider Physician Assistant
DX: R20.0 Anesthesia of skin (principal); R20.2 Paresthesia of skin
CPT/HCPCS: 95886; 95908

== ENCOUNTER → 2024-03-14 13:01 | Outpatient (BNV) | payer OTHER, SELFPAY | PROVIDERS: PCP Internal Medicine; Visit Provider Physical Medicine & Rehabilitation | DX: G57.82 Other specified mononeuropathies of left lower limb (principal) | CPT/HCPCS: 95886; 95908 ==

== ENCOUNTER 2024-03-19 12:52 | Outpatient (AMB) | payer OTHER, SELFPAY ==
[2024-03-19 12:55] VITALS: BP 124/78; PULSE 90; O2SAT 98; BMI 26.7
--- NOTE | 2024-03-19 12:55 | MHC.PC.OV ---
Vital Signs 03/19/24 12:55 Height 5 ft 3 in Weight 151 lb BMI 26.7 BP 124/78 Blood Pressure Location Rt brachial Position Sitting Pulse 90 Pulse Source Pulse Oximeter Pulse Oximetry (%) 98 Oxygen Delivery Method Room Air Intake Visit Reasons: Requesting Inhaler Intake Note: pt is requesting albuterol inhaler, difficult breathing Teller Required: No Allergies No Known Allergies Allergy (Verified 03/19/24 23:08) Medication List - Last Reconciled 03/19/24 by Vivian Skinner MD albuterol sulfate 90 mcg/actuation 2 puffs inhalation Q6H PRN fluconazole 150 mg PO Q3D PRN 2 doses gabapentin 300 mg PO TID 30 days oxycodone 5 mg PO Q8H PRN 7 days Tobacco use date assessed: 12/27/23 Dental Screening Dental Screen Date: 12/27/23 HPI Requesting Inhaler HPI Details 33-year-old lady with history of compartment syndrome of forearm, traumatic brachial plexopathy, and peroneal neuropathy of knee, with history of cocaine use, currently not using, here today complaining of intermittent episodes of she wheezing and cough usually when outdoors exposed to freshly cut grass, or with sudden fluctuations in temperature, were exposure to strong perfumes and smell. She has been prescribed albuterol inhaler during last admission and would like refill. Currently already has a spacer which she was using before. She also has been having whitish vaginal discharge accompanied by itching in peroneum present for the last several days. Denies any abdominal pain or back pain. 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 Rash Substance abuse Surgical History (Updated 03/19/24 @ 23:13 by Vivian Skinner MD) Status post incision and drainage History of fasciotomy Family History Brother Substance use disorder Paternal Aunt Substance use disorder Maternal Aunt Substance use disorder Social History Household Members: Family and Children Household Members Other:: Parents, siblings, son Housing: House Do you presently have visiting nurse or other home services: No Unable to assess alcohol history related to: Unable to respond Alcohol intake: former Patient Tobacco Use Status: Current everyday Tobacco user Tobacco use type: Cigarette Cigarettes Per Day: 4 e-Cigarette/Vaping Use: Never Used Substance Use Type: Heroin service: No Current occupational status: unemployed Cognitive needs: No Hearing needs: No Vision needs: Yes Questionnaire Thrive Questionnaire Date Thrive assessed: 12/27/23 ROSALES-7 AMB Questionnaire ROSALES-7 Date ROSALES - 7 assessed: 12/27/23 Source: Developed by Drs. Alexandru Giordano, Edna Chaidez, Vito Harris and colleagues, with an educational elodia from [employer]. Review of Systems Const Denies fatigue, Denies fever(s) and Denies headache(s) ENT Denies dizziness, Denies headache(s) and Denies nasal congestion Card Denies chest pain, Denies lightheadedness, Denies palpitations and Denies dyspnea Resp Reports as per HPI and Denies dyspnea GI Denies abdominal pain, Denies change in bowel habits and Denies heartburn Reports as per HPI, Denies hematuria, Denies urinary frequency, Denies dysuria and Denies urinary urgency Musc Reports atrophy (Left arm), Reports deformity (Left forearm), Reports limited range of motion (Left elbow and wrist, and fingers in left hand), Reports muscle weakness, Reports stiffness and Reports tingling Neuro Denies dizziness, Denies headache(s) and Reports tingling Psych Reports no additional complaints Endo Denies fatigue, Denies polydipsia, Denies polyuria and Denies palpitations Inocente/Lymph Denies easy bruising Aller/Immun Denies seasonal rhinorrhea Physical exam (Primary Care) Vital Signs: Last Vital Signs Pulse 90 03/19/24 12:55 BP 124/78 03/19/24 12:55 Pulse Ox 98 03/19/24 12:55 Oxygen Delivery Method Room Air 03/19/24 12:55 BMI result Body Mass Index 26.7 Tobacco/Smoking Status: Tobacco use Status Tobacco use date assessed 12/27/23 03/19/24 13:00 Patient Tobacco Use Status Current everyday Tobacco 03/19/24 13:00 Tobacco use type Cigarette 03/19/24 13:00 e-Cigarette/Vaping Use Never Used 03/19/24 13:00 Thrive Assessment: Date of Thrive Assessment Date Thrive assessed 12/27/23 03/19/24 13:00 Const General: comfortable, no acute distress and alert Orientation/consciousness: patient oriented x3 HENMT Ears: external ears normal General nose exam: Normal external nose present Mouth: moist mucous membranes Neck Neck: Yes full ROM, Yes no lymphadenopathy and Yes supple Resp Effort & Inspection: normal respiratory effort and able to speak in complete sentences Auscultation: clear to auscultation bilaterally Cardio Rate: regular rate Rhythm: regular rhythm Heart sounds: S1 normal heart sound present and S2 normal heart sound present Skin Other: Healed surgical scars on left forearm and hand Neuro General: patient oriented x3, gait normal and no focal motor deficits Cranial nerves: Yes CN's II-XII intact bilaterally Cognition (Neuro): normal cognition Extrem Other: Decreased range of motion in left arm, unable to make fist with left hand, contracture deformity in fingers of left Assessment and Plan Assessment & Plan (1) Reactive airway disease: Code(s): J45.909 - Unspecified asthma, uncomplicated Qualifiers: Asthma complication type: uncomplicated Asthma persistence: intermittent Asthma severity: mild Qualified Code(s): J45.20 - Mild intermittent asthma, uncomplicated Plan: Prescription sent for albuterol inhaler, to take 2 inhalations at least 1 minute apart every 6 hours as needed for episodes of bronchospasm and wheezing. Avoidance of triggers. (2) Vaginal pruritus: Code(s): N89.8 - Other specified noninflammatory disorders of vagina Plan: Empirically prescribed Diflucan 150 mg per tablet to take 1 tablet initially today and may repeat another dose after 3 days if symptoms unresolved. However if symptoms not improved with Diflucan advised to come in for further evaluation Medications: New fluconazole 150 mg PO Q3D PRN 2 tabs 0RF vaginitis albuterol sulfate 90 mcg/actuation 2 puffs inhalation Q6H PRN 8.5 grams 0RF shortness of breath or wheezing Coding Level of Care Code Est Pt Level 4 (11769) Diagnoses Mild intermittent reactive airway disease without complication J45.20 Asthma complication type: uncomplicated Asthma persistence: intermittent Asthma severity: mild Vaginal pruritus N89.8
== END 2024-03-19 14:32 | disposition home or self-care (01) ==
PROVIDERS: PCP Internal Medicine; Visit Provider Internal Medicine
DX: J45.20 Mild intermittent asthma, uncomplicated (principal); N89.8 Other specified noninflammatory disorders of vagina
CPT/HCPCS: 99214

== ENCOUNTER 2024-04-15 09:36 | Outpatient (AMB) | payer OTHER, SELFPAY ==
[2024-04-15 09:45] VITALS: BP 120/72; PULSE 76; BMI 28.9
--- NOTE | 2024-04-15 09:45 | A.OFFVIS_ITS ---
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 An echocardiogram showed reduced EF and wall motion consistent with Takotsubo CMP. She wa put on carvedilol and on follow up echo her EF had normalized. Today she states she has been doing well. She denies any chest discomfort, sob, palpitations, lightheadedness, presyncope, syncope, PND, orthopnea or edema. She reports good activity tolerance. Occassional alcohol use. Smoking marijuana daily. No longer taking carvedilol. 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 Rash Surgical History Status post incision and drainage History of fasciotomy Family History Brother Substance use disorder Paternal Aunt Substance use disorder Maternal Aunt Substance use disorder Social History Household Members: Family and Children Household Members Other:: Parents, siblings, son Housing: House Do you presently have visiting nurse or other home services: No Unable to assess alcohol history related to: Unable to respond Alcohol intake: former Patient Tobacco Use Status: Current everyday Tobacco user Tobacco use type: Cigarette Cigarettes Per Day: 4 e-Cigarette/Vaping Use: Never Used Substance Use Type: Heroin service: No Current occupational status: unemployed Cognitive needs: No Hearing needs: No Vision needs: Yes Review of Systems Const All systems reviewed & are unremarkable except as noted in HPI and below ENT Denies dizziness Card Denies chest pain, Denies chest pain at rest, Denies chest pain with activity, Denies rapid heart rate, Denies pedal edema, Denies edema, Denies leg edema, Denies lightheadedness, Denies palpitations, Denies dyspnea, Denies dyspnea on exertion and Denies orthopnea Resp Denies cough, Denies dyspnea and Denies dyspnea on exertion GI Denies hematochezia and Denies change in stool character Musc Denies abnormal gait, Denies limited range of motion, Denies muscle cramps, Denies muscle weakness, Denies numbness, Denies radiating pain into limb, Denies stiffness and Denies tingling Neuro Denies abnormal gait, Denies dizziness, Denies numbness and Denies tingling Endo Denies palpitations Physical Exam Vital Signs: Last Vital Signs Pulse 76 04/15/24 09:45 BP 120/72 04/15/24 09:45 BMI result Body Mass Index 28.9 Const General: cooperative, healthy appearing, comfortable and no acute distress Orientation/consciousness: patient oriented x3 Neck Neck: Yes normal visual inspection and Yes no JVD Resp Effort & Inspection: normal respiratory effort Auscultation: clear to auscultation bilaterally, no crackles, no rales, no rhonchi and no wheezes Cardio Jugular venous distension: no JVD Rate: regular rate Rhythm: regular rhythm Heart sounds: S1 normal heart sound present, S2 normal heart sound present, no murmurs and no rubs Neuro General: patient oriented x3 Extrem General: Yes normal to inspection and No no pedal edema Psych Appearance: grossly normal Mental Status: mental status grossly normal Speech and movement: Normal speech and movement present Assessment & Plan Assessment & Plan (1) Takotsubo cardiomyopathy: Code(s): I51.81 - Takotsubo syndrome Category: Medical Plan: [facility] admit last fall with overdose, left arm compartment syndrome, rhabdomyolysis, aspiration pneumonia. Troponin was elevated. EKG was not ischemic. She had an echocardiogram showing EF 20% with regional variation. She did not have CHF. She was thought to have takotsubo cardiomyopathy. She was put on carvedilol to help with neurohormonal modulation. An outpt echocardiogram was done on 09/15/23 showing EF 50-55%, no evidence of regional WMA. She was seen in the office and condition was stable. She recently had another echo on 01/16/24 showing EF 63%, no regional WMA. She stopped carvedilol a few months ago. No r eport of anginal symptoms. No evidence of heart failure on exam. Since her EF has normalized and there is no wall motion abnormalities there is no need for a nuclear stress test at this time. Instructed on cessation of substance abuse and how substances can affect her heart. Will arrange for OV in 6 mo to reassess clinically, sooner if needed (2) Substance abuse: Code(s): F19.10 - Other psychoactive substance abuse, uncomplicated Category: Medical Plan: as above Plan Time spent on chart review, document, interview, assessment Coding Level of Care Code Est Pt Level 3 (17999) Diagnoses Takotsubo cardiomyopathy I51.81 Substance abuse F19.10 Time Spent (min) 24
== END 2024-04-15 10:20 | disposition home or self-care (01) ==
PROVIDERS: PCP Internal Medicine; Visit Provider Nurse Practitioner Family
DX: I51.81 Takotsubo syndrome (principal); F19.10 Other psychoactive substance abuse, uncomplicated
CPT/HCPCS: 99213

== ENCOUNTER → 2024-04-15 09:36 | Outpatient (BNVA) | payer OTHER, SELFPAY | PROVIDERS: PCP Internal Medicine; Visit Provider Nurse Practitioner Family | DX: I51.81 Takotsubo syndrome (principal); F19.10 Other psychoactive substance abuse, uncomplicated | CPT/HCPCS: 99212 ==

== ENCOUNTER 2024-04-30 12:00 | Outpatient (RCR) | payer OTHER, SELFPAY ==
--- NOTE | 2024-01-15 13:29 | MHC.PT.EP ---
[facility] [place] [facility] [place] [facility] [place] Office [address] Brenda Melgar [address] [phone] F: [phone] F: [phone] F: [phone] F: [phone] Physical Therapy Plan of Care Date of Evaluation: 01/15/24 Date of Surgery: Diagnosis: LESION OF LEFT LATERAL AND MEDIAL POPLITEAL NERVE Assessment: 33 YO FEMALE REF TO PT W DX OF Lt MEDIAL AND LAT PERONEAL NERVE LESION SINCE AUGUST 2023. OF IMPORTANCE, HER LEFT UE IS SUPPORTED IN A SLING, H/O Lt UE COMPARTMENT SYNDROME S/P EMERGENCY FASCIOTOMY WITH RESULTANT UE WEAKNESS. SHE RESIDES W FAMILY. THE Pt HAS ALTERED GAIT, DECR WT BEARING Lt LE W FUNCT TASKS, AROM / ROM DEFICITS Lt DISTAL LE, (+) SENSORY IMPAIRMENTS Lt DISTAL LE, AND STRENGTH DEFICITS LEFT LE (EVERTORS, DF). SHE WOULD LIKE TO IMPROVE HER FUNCTION-> GAIT AND MOBILITY IN Lt LE. Frequency and Duration: The patient will be seen 1 x WK x 8 WKS (PER Pt) Short Term Goals: *DECREASE Lt LE PAIN *IMPROVE ROM Lt LE *INITIATE HEP *IMPROVE EFFICIENCY OF GAIT MECH/ FUNCT MOB Correction Goals: *Lt LE PAIN DECR BY 50% W REG ADLs *INDEP HEP -> Pt DEMON FUNCTIONAL AROM AND STRENGTH Lt EVERTORS/ DORSIFLEXORS *IMPROVED FUNCT MOB FIDE EVIDENT W IMPROVED LEFI SCORE , AT EVAL 21/80 *IMPROVE 30 SEC SIT <-> STAND, WAS 5 REPS AT EVAL Treatment Plan: Modalities to reduce pain, spasms and effusion. Manual therapy to restore motion and function. Therapeutic exercise to improve strength and flexibility. Neuromuscular re-education for posture and balance. Therapeutic activities to return to functional activities of daily living. Electronically signed by: AGUSTIN DOMINGUEZ,PT Please sign and return to therapist. Thank you for your referral.
--- NOTE | 2024-07-26 07:49 | MHC.PT.DC ---
[facility] [place] [facility] [place] [facility] [place] [facility] [address] Brenda Melgar [address] [phone] F: [phone] F: [phone] F: [phone] F: [phone] Physical Therapy Discharge Report Diagnosis: LESION OF LEFT LATERAL AND MEDIAL POPLITEAL NERVE Date of Surgery: Date of Evaluation: 01/15/24 Date of Discharge: 07/26/24 Treatments to Date: 14 Cancellations to Date: 3 No Shows to Date: 1 Discharge Status: Improved Function Independent with HEP Patient Elected to Stop Discharge Summary: JANI HAS PROGRESSED NICELY IN PT- SHE WAS PERF HIGHER LEVEL BALANCE / STABILIZATION/ STRENGTHENING/FUNCTIONAL EXER W/O ADVERSE RESPONSE. HER GAIT AND TRANSFERS WERE MORE EFFICIENT. A FORMAL REASSESSMENT WAS NOT PERF THE Pt CANC HER LAST FEW APPTS. SHE DID MEET THE MAJORITY OF HER GOALS. Electronically signed by: AGUSTIN DOMINGUEZ,PT Please sign and return to therapist. Thank you for your referral.
== END 2024-07-26 07:50 | disposition home or self-care (01) ==
LOC: HO.PT 12:00
PROVIDERS: PCP Internal Medicine; Visit Provider Internal Medicine
DX: G57.32 Lesion of lateral popliteal nerve, left lower limb (principal); G57.42 Lesion of medial popliteal nerve, left lower limb
CPT/HCPCS: 97110; 97112; 97162

== ENCOUNTER 2024-05-09 12:59 | Outpatient (REF) | payer OTHER, SELFPAY ==
--- NOTE | 2024-05-09 13:01 | EMG_ITS ---
Chief complaint: Left forearm compartment syndrome, requiring multiple surgeries. Please see past notes for full history. Exam today: Fingers flexed at IP joints Atrophy noted on left palm and forearm Left wrist extension 4+/5 Left wrist flexion is less than full range but does improve strength from previous. Left triceps 5/5 Left biceps 4+/5 Left shoulder abduction 5/5 Strength, especially proximal arm, significantly improved from previous. Reason for referral: Compared to previous NCS/EMG, evaluate status of brachial plexopathy Referred by: Zackary KINCAID Procedure done: Left upper extremity NCS/EMG Precautions and/or limitations: None The limb temperature was monitored continuously and remained between 32-36 degrees C during the performance of the NCS. Nerve Conduction Studies Anti Sensory Summary Table ?Stim Site NR Onset (ms) Norm Onset (ms) Peak (ms) Norm Peak (ms) O-P Amp (?V) Norm O-P Amp Site1 Site2 Delta-0 (ms) Dist (cm) Jose Elias (m/s) Norm Jose Elias (m/s) Left Lat Ante Brach Cutan Anti Sensory (Med Forearm) Lat Biceps ? 0.7 1.0 4.8 Lat Biceps Lat Forearm 0.7 0.0 Left Med Ante Brach Cutan Anti Sensory (Med Forearm) Elbow ? 0.8 1.3 2.0 Elbow Med Forearm 0.8 0.0 Left Median Anti Sensory (2nd Digit) Wrist NR <3.6 >10 Wrist 2nd Digit 14.0 Left Radial Anti Sensory (Thumb) Forearm NR <3.1 Forearm Thumb 0.0 Left Ulnar Anti Sensory (5th Digit) Wrist NR <3.7 >15.0 Wrist 5th Digit 14.0 Motor Summary Table ?Stim Site NR Onset (ms) Norm Onset (ms) O-P Amp (mV) Norm O-P Amp iAmp (mV) Amp (1st) (%) Site1 Site2 Delta-0 (ms) Dist (cm) Jose Elias (m/s) Norm Jose Elias (m/s) Left Median Motor (Abd Poll Brev) Wrist NR <3.9 >4.5 Elbow Wrist 0.0 >45 Elbow NR Left Radial Motor (Arm) Wrist NR <2.5 >1.7 Wrist Arm 0.0 Mid Forearm NR Mid Forearm Wrist 0.0 >60 Elbow NR Elbow Mid Forearm 0.0 Left Ulnar Motor (Abd Dig Minimi) Wrist NR <3.0 >5 B Elbow Wrist 0.0 >45 B Elbow NR A Elbow B Elbow 0.0 >45 A Elbow NR EMG ?Side Muscle Nerve Root Ins Act Fibs Psw Amp Dur Poly Recrt Int Pat Comment Left 1stDorInt Ulnar C8-T1 Incr 1+ 1+ can't activate Left FlexCarRad Median C6-7 no muscle bulk Left Biceps Musculocut C5-6 Nml Nml Nml Nml Nml 1+ Nml Complete Left Triceps Radial C6-7-8 Nml Nml Nml Incr Incr 0 Nml Complete Left Deltoid Axillary C5-6 Incr 2+ 2+ Nml Nml 1+ Nml Complete CRDs Left Abd Poll Brev Median C8-T1 Incr 1+ 1+ can't activate Left BrachioRad Radial C5-6 Nml Nml Nml Nml Nml 1+ Nml Complete CRDs Left ExtIndicis Radial (Post Int) C7-8 no muscle bulk Left Supraspinatus SupraScap C5-6 Nml Nml Nml Incr Incr 0 Nml Complete FINDINGS: Still absent response from left median motor and sensory nerves, ulnar motor and sensory nerves, radial motor and sensory nerves. Now has response coming from left MAC and LAC nerves. Concentric needle EMG was performed in selected muscles of the left upper extremity and cervical paraspinals. Study revealed signs of electric abnormalities as shown in the table above. Left deltoid showed polyphasia. Left triceps showed increased duration in amplitude. Left biceps showed polyphasia. Left brachioradialis showed polyphasia and CRDs. Left APB showed increased insertional activity, fibrillations and PSWs. Patient could not actively activate. Left FDI showed increased insertional activity, fibrillations and PSWs. Patient could not actively activate. No muscle bulk on left EIP and FCR. Left supraspinatus showed increased duration and amplitude. No denervation seen on left cervical paraspinals. IMPRESSION: 1. This is an abnormal study. 2. There is improvement of the brachial plexopathy that all muscles tested now show signs of reinnervation. There is now response from left MAC and LAC nerves. 3. Suspect remaining injury is more peripheral (forearm) rather than from plexus, consistent with tissue injury from the compartment syndrome and multiple surgeries to save her extremity. CLINICAL COMMENT: Encouraged patient to remove shoulder sling and use her left arm more actively. Recommended for patient to ask OT if they can fabricate a brace/orthotic that can help with left hand slot technician. Thank you for your kind referral. Mini Watkins MD, EFREN Board Certified, [place] [employer] and Rehabilitation (ABPMR) Board Certified, [place] Board of Electrodiagnostic Medicine (ABEM) CODIN [id number] MTDD
== END 2024-05-09 13:00 | disposition home or self-care (01) ==
LOC: HO.NEURO 12:59
PROVIDERS: PCP Internal Medicine; Visit Provider Physician Assistant
DX: R20.0 Anesthesia of skin (principal); R20.2 Paresthesia of skin
CPT/HCPCS: 95886; 95910

== ENCOUNTER → 2024-05-09 13:01 | Outpatient (BNV) | payer OTHER, SELFPAY | PROVIDERS: PCP Internal Medicine; Visit Provider Physical Medicine & Rehabilitation | DX: R20.2 Paresthesia of skin (principal) | CPT/HCPCS: 95886; 95910 ==

== ENCOUNTER 2024-05-13 11:00 | Outpatient (RCR) | payer OTHER, SELFPAY ==
--- NOTE | 2023-10-03 14:46 | MHC.OT.EP ---
[address] [phone] Occupational Therapy Plan of Care Patient Name: Evita Valverde Date of Evaluation: 10/03/23 Diagnosis: Brachial Plexus, Compartment syndrome L forearm Pain Location: L forearm Pain Score: 5 Pain Scale Used: Numeric (0 - 10) Alleviating Factors: Tylenol Assessment: 33 YO F presents for OT services after complicated hospital course w/ initial ER visit where she was found unresponsive 08/16/23. She was found to have compartment syndrome and brachial plexus of L forearm, where she received inpatient OT for about a month. She has had several I&D and wound vac services and now seeking additional services for her arm. Upon assessment pt presents with single crutch and L sling. She is no longer wearing wound vac and will continue follow ups w/ ortho for grafting and further care. She has been following recommendations for sling wear but continues to have 1 fingerbreath shoulder subluxation and limited A/PROM w/ occasional shoulder pain. She has made gains w/ active shoulder movements and elbow extension, but still absent return through median and ulnar innervation. Tightness in wrist and digits noted w/ dense scarring on volar forearm. We have initiated OT with education on cont'd range and introduction to scar management and desensitization. We will continue OT services with the ultimate goal of Ind w/ self management and guidance towards optimal functional use of left arm. Frequency and Duration: The patient will be seen 2x/wk for 8 weeks Short Term Goals: UB/LB dressing using marlene techniques Ind with HEP Ind with desensitization techniques for scar Elbow PROM 10/130 Denial Management Representative Goals: Shoulder AAROM to 130 flexion pain free Wrist ext to 2-/5 Pt to demo trace movement wrist/digit flexion Ind w/ post-skin graft care Treatment Plan: Therapeutic Exercise Therapeutic Activity Home Exercise Program Splinting Patient Education Desensitization/Sensory Re-ed Edema Control ADL Training NMES Fluidotherapy MHP Cold Packs Joint Mobilization Soft Tissue Mobilization Kinesiotaping Electronically Signed By: Nadine Mensah OT/s; Mami Márquez OTR/L CHT Please Sign and return to therapist. Thank you once again for your referral.
--- NOTE | 2024-01-04 10:18 | MHC.OT.OP ---
[address] [phone] F: [phone] Occupational Therapy Progress Note Patient Name: Evita Valverde Diagnosis: Brachial Plexus, Compartment syndrome L forearm Date of Surgery: Date of Evaluation: 10/03/23 Treatments to Date: 22 Cancellations to Date: No Shows to Date: Subjective: Pt reports shoulder pain improving Shoulder pain 3 Pain Score: 3 Pain Location: Left medial elbow, and shoulder. Objective Measures: light touch/sensation proximal UE to L wrist crease Status: Progressing Assessment: Improving left shoulder pain and UE strength . Pt has progressed to shoulder strengthening with [employer], isometric wrist and digit extension. 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 Pt will benefit from continued UE strengthening to maximize function of her left upper extremity. Short Term Goals: UB/LB dressing using marlene techniques MET Ind with HEP MET Ind with desensitization techniques for scar MET Elbow PROM 10/130 MET Picu Nurse Goals: Shoulder AAROM to 130 flexion pain free MET Wrist ext to 2-/5 MET Pt to demo trace movement wrist/digit flexion MET Ind w/ post-skin graft care MET Frequency and Duration: The patient will be seen 2x wk x 2 wks Treatment Plan: Therapeutic Exercise Therapeutic Activity Home Exercise Program Patient Education Electronically Signed By: Yadira Reed OT CHT CLT Reviewed/agree with student documentation: Yes Therapist: HARSHA Solis/Alanna SHEPHERD
--- NOTE | 2024-02-06 10:10 | MHC.OT.OP ---
[address] [phone] F: [phone] Occupational Therapy Progress Note Patient Name: Evita Valverde Diagnosis: Brachial Plexus, Compartment syndrome L forearm Date of Evaluation: 10/03/23 Treatments to Date: Subjective: I can tell it's getting better Pain Score: 2 Pain Location: Left shoulder, occasional pain only Objective Measures: Left shoulder AROM WFL MMT flex 4+/5 abd 4+/5 ext 4+/5 Elbow MMT flex 4-/5 ext 4+/5 Forearm MMT pro 3/5 sup 4-/5 Wrist MMT flex 3+/5 ext 3+/5 Thumb MMT flex 2/5 ext 3/5 Digit MMT flex 1/5 ext 1/5 Light touch intact to volar and dorsal arm proximal to wrist crease, otherwise still absent in hand Status: Progressing Assessment: Evita continues to show steady gains with left UE strength and function. Shoulder, elbow, forearm and wrist range and strength have greatly improved, but she continues to have only trace movements in hand, with absent light touch in left hand. She has significant scarring through volar forearm and elbow, likely limited pull through of flexors tendons and limiting composite digit and wrist extension. She has good approximation of left shoulder joint, no longer with subluxation and pain has greatly improved, now with full active range and good functional strength. She has progressed to Independent with self care and simple meals prep. She has still been wearing nighttime resting hand wrist orthosis to allow for stretching and minimize flexion contracture. She is highly motivated w/ excellent follow through w/ recommendations and home program, I anticipate she will continue to make strong gains. Short Term Goals: UB/LB dressing using marlene techniques MET Ind with HEP MET Ind with desensitization techniques for scar MET Elbow PROM 10 MET Material Requirements Worker Goals: Shoulder AAROM to 130 flexion pain free MET Wrist ext to 2-/5 MET Pt to demo trace movement wrist/digit flexion MET Ind w/ post-skin graft care MET UPDATED GOALS 02/05/24 Pt TO DEMO ACTIVE GRASP AND RELEASE OF OBJECTS FOR EASE W/ BIMANUAL HOMECARE TASKS Pt TO DEMO GOOD SAFETY AWARENESS TECHNIQUES TO REDUCE BURN RISK DUE TO IMPAIRED SENSATION Pt TO DEMO ACTIVE DIGIT STRENGTH >3/5 FOR FUNCTIONAL USE OF HAND Frequency and Duration: The patient will be seen 2x/wk for 6 weeks Treatment Plan: Therapeutic Exercise Therapeutic Activity Home Exercise Program Splinting Neuro Re-ed Patient Education Desensitization/Sensory Re-ed ADL Training Ultrasound NMES Cold Packs Joint Mobilization Soft Tissue Mobilization Kinesiotaping Electronically Signed By: HARSHA Solis/Alanna SHEPHERD Reviewed/agree with student documentation: Yes Therapist: HARSHA Solis/Alanna SHEPHERD
--- NOTE | 2024-05-14 11:01 | MHC.OT.DC ---
[address] [phone] F: [phone] Occupational Therapy Discharge Note Patient Name: Evita Valverde Provider: Dr Devang Long Diagnosis: Brachial Plexus, Compartment syndrome L forearm Date of Evaluation: 10/03/23 Date of Discharge: 05/14/24 Treatments to Date: 43 Discharge Status: Independent with HEP Discharge Summary: Evita has been seen in outpatient OT for the past several months, after initiating therapy at [facility] last fall at time of injury. She has done very well with STG and original LTG met. She has made plateau in return of strength and movement in left hand. Alhough she has good strength in shoulder, elbow and wrist, she is still limited digit extension and has trace digit flexion. She continues to make functional gains w/ compensatory strategies and has good follow through w/ nighttime wrist orthosis and home exercise program for stretching and strengthening. I have trialed anti-claw orthosis without success, we have considered dynamic flexion splint for median nerve palsy, but I believe the rubber bands placed volarly would be more limiting at this time, I will continue to research alternatives for assisted hand flexion, otherwise she uses tenodesis pattern and left hand for assist w/ support and gross grasp. She is still very prone to injury due to dense numbness and has had several lopez to left hand and breakdown of nail bed tissue due to habitual nail biting. We have discussed other methods for safety. We will be discharging to self management at this time, I anticipate she will continue to make slow gains, but would likely need surgical intervention (if this is an option) for median nerve palsy. Electronically Signed By: Mami Márquez, MANUELR/L CHT Please Sign and return to therapist, thank you for your referral.
== END 2024-05-14 11:08 | disposition home or self-care (01) ==
LOC: HO.OT 11:00
PROVIDERS: PCP Internal Medicine; Visit Provider Orthopaedic Surgery
DX: G54.0 Brachial plexus disorders (principal); T79.A1 Traumatic compartment syndrome of upper extremity
CPT/HCPCS: 97014; 97035; 97110; 97112; 97140; 97167; 97530; 97760

== ENCOUNTER 2024-07-11 12:23 | Outpatient (AMB) | payer OTHER, SELFPAY ==
[2024-07-11 12:25] VITALS: BMI 28.9
--- NOTE | 2024-07-11 12:25 | A.OFFVIS_ITS ---
Vital Signs 07/11/24 12:25 Height 5 ft 3 in Weight 163 lb BMI 28.9 Intake Visit Reasons: discuss pain mgmnt / f/u left arm Intake Note: Evita is a 33 year old female who presents today for a follow up of her left arm s/p left arm fasciotomy, DOS 09/12/23 to discuss referral to pain mgmt. Allergies No Known Allergies Allergy (Verified 07/11/24 12:30) HPI HPI discuss pain mgmnt / f/u left arm : Details: Evita is a 33 year old female who presents today for a follow up of her left arm s/p left arm fasciotomy, DOS 09/12/23 to discuss referral to pain mgmt. She had compartment syndrome with extensive fasciotomies and excision of muscle and her volar compartment is essentially dysfunctional but she is doing well proximal to the elbow and can extend her fingers. She has been working with occupational therapy and dynamic and static splinting to prevent contractures but this has only been partially successful. She is working with pain management on a nerve stimulator and she takes 3 5 mg oxycodone a day. 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 Rash Surgical History Status post incision and drainage History of fasciotomy Family History Brother Substance use disorder Paternal Aunt Substance use disorder Maternal Aunt Substance use disorder Social History Household Members: Family and Children Household Members Other:: Parents, siblings, son Housing: House Do you presently have visiting nurse or other home services: No Unable to assess alcohol history related to: Unable to respond Alcohol intake: former Patient Tobacco Use Status: Current everyday Tobacco user Tobacco use type: Cigarette Cigarettes Per Day: 4 e-Cigarette/Vaping Use: Never Used Substance Use Type: Heroin service: No Current occupational status: unemployed Cognitive needs: No Hearing needs: No Vision needs: Yes Physical Exam Vital Signs: BMI result Body Mass Index 28.9 Extrem Other: Wrist extension and finger extension intact with moderate contracture of the flexors Assessment & Plan Assessment & Plan (1) Compartment syndrome of forearm: Comment: Currently going to physical therapy twice a week Code(s): T79.A19A - Traumatic compartment syndrome of unspecified upper extremity, initial encounter Category: Medical Plan: Evita overall is doing very well considering and her pain is constant and reasonably well managed with a combination of narcotics and pain management nerve stimulation which they are planning on putting in a nerve stimulator so I anticipate this will improve. We discussed decreasing her narcotic usage and starting with two 5 mg pills a day. She is not amenable to this at this time. I think she wants to wait till she gets a nerve stimulator in. I also think she would benefit from a consultation with a hand surgeon. I had previously tried to send her to [facility] but the head of the hand surgery dept refused to accept her presumably because of her history of drugs and compartment syndrome. Evita, however, is a very reasonable and pleasant young woman and I think she should see a hand surgeon for consideration at least of tendon transfers. I will try to make this happen but that can be difficult in this region as it seems that many hand surgeons are not comfortable with cases of such complexity. Coding Level of Care Code Est Pt Level 4 (15170) Diagnoses Compartment syndrome of forearm T79.A19A
== END 2024-07-11 14:39 | disposition home or self-care (01) ==
PROVIDERS: PCP Internal Medicine; Visit Provider Orthopaedic Surgery
DX: T79.A12A Traumatic compartment syndrome of left upper extremity, initial encounter (principal)
CPT/HCPCS: 99213

== ENCOUNTER → 2024-07-11 12:23 | Outpatient (BNVA) | payer OTHER, SELFPAY | PROVIDERS: PCP Internal Medicine; Visit Provider Orthopaedic Surgery | DX: T79.A12A Traumatic compartment syndrome of left upper extremity, initial encounter (principal); X58.XXXA Exposure to other specified factors, initial encounter; Y93.9 Activity, unspecified; Y92.9 Unspecified place or not applicable; Y99.9 Unspecified external cause status | CPT/HCPCS: 99212 ==

== ENCOUNTER 2024-08-14 09:41 | Outpatient (AMB) | payer OTHER, SELFPAY ==
[2024-08-14 10:05] VITALS: BP 118/88; PULSE 100; O2SAT 98; BMI 30.8
--- NOTE | 2024-08-14 10:05 | A.OFFPC_ITS ---
Vital Signs 08/14/24 10:05 Height 5 ft 3 in Weight 174 lb BMI 30.8 BP 118/88 Blood Pressure Location Rt brachial Position Sitting Pulse 100 Pulse Source Pulse Oximeter Pulse Oximetry (%) 98 Oxygen Delivery Method Room Air Intake Visit Reasons: Annual PE Intake Note: Pt is here today for her PE Allergies No Known Allergies Allergy (Verified 08/14/24 10:28) Medication List - Last Reconciled 08/14/24 by Vivian Skinner MD albuterol sulfate 90 mcg/actuation 2 puffs inhalation Q6H PRN gabapentin 300 mg PO TID 30 days oxycodone 5 mg PO Q8H PRN 21 days Tobacco use date assessed: 08/14/24 Dental Screening Dental Screen Date: 08/14/24 Did you have a dental visit in the last 12 months?: Yes Did you have a dental problem in the last 6 months where you did not have access to dental care?: Yes Was dental information given to patient?: Patient has dentist HPI Annual PE HPI Details 34 year old lady here today for physical exam. She has history of left tibial neuropathy and compartment syndrome in left arm status post fasciotomy 09/12/2023, currently being followed at [facility] and [facility], and is being considered for a nerve stimulator for pain control and take her off her narcotic use. Already has finished OT/PT. She is an active cigarette smoker, but has cut down to just 3-4 cigarettes a day. She has anxiety depression currently being seen by a therapist via zoom, does not want to start any medications at present time. Has reactive airway disease, rarely needing to use her albuterol inhaler Recently burned her fingers on left hand while cooking a month ago. [facility] Medical History (Updated 08/14/24 @ 10:59 by Vivian Skinner MD) Cervical cancer screening Substance abuse MDD (major depressive disorder) Opioid use disorder 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 Reactive airway disease History of cocaine use 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 Surgical History (Updated 08/14/24 @ 10:59 by Vivian Skinner MD) Status post incision and drainage History of fasciotomy Family History Brother Substance use disorder Paternal Aunt Substance use disorder Maternal Aunt Substance use disorder Social History Household Members: Family and Children Household Members Other:: Parents, siblings, son Housing: House Do you presently have visiting nurse or other home services: No Unable to assess alcohol history related to: Unable to respond Alcohol intake: former Patient Tobacco Use Status: Current everyday Tobacco user Tobacco use type: Cigarette Cigarettes Per Day: 4 e-Cigarette/Vaping Use: Never Used Substance Use Type: Heroin service: No Current occupational status: unemployed Cognitive needs: No Hearing needs: No Vision needs: Yes Questionnaire PHQ-9 Over the last 2 weeks, how often have you been bothered by any of the following problems? 1. Little interest or pleasure in doing things: several days 2. Feeling down, depressed, or hopeless: several days 3. Trouble falling or staying asleep, or sleeping too much: several days 4. Feeling tired or having little energy: several days 5. Poor appetite or overeating: several days 6. Feeling bad about yourself - or that you are a failure or have let yourself or your family down: several days 7. Trouble concentrating on things, such as reading the newspaper or watching television: several days 8. Moving or speaking so slowly that other people could have noticed. Or the opposite - being so fidgety or restless that you have been moving around a lot more than usual: several days 9. Thoughts that you would be better off or of hurting yourself in some way: not at all Total score: 8 Depression Screening Interpretation: Positive (Devonte ruiz via telehealth) Depression Screening Follow-up: Existing condition, In treatment and Community Mental Health Worker F/U Depression Screening Done: Yes 90455 - PHQ-9 Billing: Yes Source: Developed by Drs. Alexandru Giordano, Edna Chaidez, Vito Harris and colleagues, with an educational elodia from [employer]. Thrive Questionnaire Date Thrive assessed: 08/14/24 I am a: Patient What is your living situation today?: I have a steady place to live Within the past 12 months, did the food you bought not last and you didn't have the money to get more?: Never true Within the past 12 months, did you worry whether your food would run out before you got money to buy more?: Never true Do you have trouble paying for medicines?: No Do you have trouble getting transportation to medical appointments?: No Do you have trouble paying your heating and electricity bill?: No Do you have trouble taking care of your child, family member or friend?: No Do you have trouble with day-to-day activities such as bathing, preparing meals, shopping, managing finances, etc.?: Yes Are you interested in more education?: No Please select the resources that you would like help with: None Currently or been in a relationship where the following occur: No concerns reported THRIVE Score: 0 AUDIT C Alcohol Use Questionnaire (AUDIT-C) 1. How often do you have a drink containing alcohol?: 2-4 times a month 2. How many drinks containing alcohol do you have on a typical day when you are drinking?: 3 or 4 3. How often do you have six or more drinks on one occasion?: Less than monthly Total Score: 4 ROSALES-7 AMB Questionnaire ROSALES-7 Date ROSALES - 7 assessed: 08/14/24 Feeling nervous, anxious, or on edge: 1 = Several days Not being able to stop or control worryin = Several days Worrying too much about different things: 1 = Several days Trouble relaxin = Several days Being so restless that it is hard to sit still: 1 = Several days Becoming easily annoyed or irritable: 1 = Several days Feeling afraid as if something awful might happen: 0 = Not at all Total ROSALES-7 score (0-4 normal; 5-9 mild; 10-14 moderate; 15-21 severe): 6 Source: Developed by Drs. Alexandru Giordano, Edna Chaidez, Vito Harris and colleagues, with an educational elodia from [employer]. ROSALES-7 Assessment Billing ROSALES-7 Assessment Tool: ROSALES-7 Assessment 95666 Review of Systems Const Denies fatigue, Denies fever(s) and Denies headache(s) Eyes Reports requires corrective lenses ENT Denies dizziness, Denies headache(s) and Denies nasal congestion Card Denies chest pain, Denies lightheadedness, Denies palpitations and Denies dyspnea Resp Reports as per HPI and Denies dyspnea GI Denies abdominal pain, Denies change in bowel habits and Denies heartburn Reports as per HPI, Denies hematuria, Denies urinary frequency, Denies dysuria and Denies urinary urgency Musc Details: Pain tingling in left hand and difficulty with range of motion in left foot, accompanied by numbness and tingling in left lower leg, has difficulty going up and down stairs Reports atrophy (Left arm), Reports deformity (Left forearm), Reports limited range of motion (Left elbow and wrist, and fingers in left hand), Reports muscle weakness, Reports stiffness and Reports tingling Skin/Breast Denies breast pain, Denies breast mass and Reports wounds (First-degree burn wounds on tips of fingers of left hand) Neuro Denies dizziness, Denies headache(s) and Reports tingling Psych Reports no additional complaints Endo Denies fatigue, Denies polydipsia, Denies polyuria and Denies palpitations Inocente/Lymph Denies easy bruising Aller/Immun Denies seasonal rhinorrhea Physical exam (Primary Care) Vital Signs: Last Vital Signs Pulse 100 08/14/24 10:05 BP 118/88 08/14/24 10:05 Pulse Ox 98 08/14/24 10:05 Oxygen Delivery Method Room Air 08/14/24 10:05 BMI result Body Mass Index 30.8 Tobacco/Smoking Status: Tobacco use Status Tobacco use date assessed 08/14/24 08/14/24 10:07 Patient Tobacco Use Status Current everyday Tobacco 08/14/24 10:07 Tobacco use type Cigarette 08/14/24 10:07 e-Cigarette/Vaping Use Never Used 08/14/24 10:07 PHQ-9: PHQ-9 Score PHQ-9: Total score 8 08/14/24 11:03 Depression Screening Interpretation: Positive (Devonte ruiz via telehealth) Depression Screening Follow-up: Existing condition, In treatment and Community Mental Health Worker F/U Thrive Assessment: Date of Thrive Assessment Date Thrive assessed 08/14/24 08/14/24 10:07 Currently or been in a relationship where the following occur: No concerns reported Advance Care Planning discussion: Completed/Scanned Date of discussion: 08/14/24 Who was present: Patient Forms completed: Health Care Proxy Time spent: 16-45 minutes Actual minutes spent: 16 Const General: comfortable, no acute distress and alert Orientation/consciousness: patient oriented x3 HENMT Ears: external ears normal General nose exam: Normal external nose present Mouth: moist mucous membranes Eyes General: appearance normal, both eyes and all related structures Neck Neck: Yes full ROM, Yes no lymphadenopathy and Yes supple Chest Breast/axilla palpation: normal palpation of the breasts Resp Effort & Inspection: normal respiratory effort and able to speak in complete sentences Auscultation: clear to auscultation bilaterally Cardio Rate: regular rate Rhythm: regular rhythm Heart sounds: S1 normal heart sound present and S2 normal heart sound present GI Palpation (GI): Soft to palpation, nontender, no guarding and no masses Auscultation: normal bowel sounds General: Yes no CVA tenderness Back/Spine/Pelvis Back: no CVA tenderness Skin Other: Surgical scar on left upper and left forearm, left fingers in contracture deformity, with healing first-degree burn wounds on tips of fingers in left hand Full range of motion now in both shoulders Neuro General: patient oriented x3 and gait normal Cranial nerves: Yes CN's II-XII intact bilaterally Cognition (Neuro): normal cognition Extrem Other: Decreased range of motion in left hand, unable to make fist with left hand, contracture deformity in fingers of left Psych Appearance: grossly normal and well kempt Mental Status: mental status grossly normal Speech and movement: Normal speech and movement present Affect: normal affect Attitude: cooperative Thought process: Normal thought process present Office Procedures Flu Questionnaire Does the patient have a severe egg allergy?: No Does the patient have a fever or illness today?: No Has the patient ever had Guillain-[place] Syndrome?: No Has the patient ever had any past reaction to a flu shot?: No Immunizations Fluarix Triv [id number] (PF) 45 mcg (15 mcg x 3)/0.5 mL IM syringe Performing Provider: Vivian Skinner MD Performing Location: [facility] Administered by: Izabela George CMA on 08/14/24 11:03 Dose Route Admin Location Dispensed Lot Number Expiration Date [facility] It Specialist 0.5 mL IM Right Deltoid 0.5 mL [id number] 05/12/25 [id number] [employer] VIS Given Date VIS Provided VIS Publication Date 08/14/24 Single Vaccine 21 Eligibility Eligibility Date Funding Source Not [facility] Eligible 08/14/24 Private Coding Level of Care Code Est Pt Prev Care 18-39y(27723) Diagnoses Cervical cancer screening Z12.4 Annual visit for general adult medical examination with abnormal findings Z00.01 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 M24.542 Takotsubo cardiomyopathy I51.81 Mild intermittent reactive airway disease without complication J45.20 Asthma complication type: uncomplicated Asthma persistence: intermittent Asthma severity: mild Left tibial neuropathy G57.42 Moderate episode of recurrent major depressive disorder F33.1 Active/Remission status: currently active Major depression episode severity: moderate Major depression recurrence: recurrent Additional Codes ROSALES-7 Assessment Billing - ROSALES-7 Assessment Tool: ROSALES-7 Assessment 61967 ([id number]) Vital Signs *Quality* - Advance Care Planning discussion: Completed/Scanned ([id number]) Vital Signs *Quality* - Time spent: 16-45 minutes ([id number]) Assessment & Plan Assessment & Plan (1) Cervical cancer screening: Code(s): Z12.4 - Encounter for screening for malignant neoplasm of cervix Category: Medical Plan: Referred to [facility] for her routine Pap and pelvic exam (2) Annual visit for general adult medical examination with abnormal findings: Code(s): Z00.01 - Encounter for general adult medical examination with abnormal findings Plan: Will check appropriate labs. Continue regular dental visit every 6 months and regular eye exams, at least every 2 years. Take adequate calcium in diet and vitamin-D 3 at 2000 IU per cap once a day, in addition to weight-bearing exercises to help maintain good muscle tone and weight control. Instructed to do self-breast exam, and recommended to get yearly mammogram, starting at age 40. Flu vaccine given today, reminded to get her COVID booster, up-to-date with her Tdap. 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: Code(s): M24.542 - Contracture, left hand Category: Medical Plan: Currently being followed by Orthopedics (4) Takotsubo cardiomyopathy: Code(s): I51.81 - Takotsubo syndrome Category: Medical Plan: Followed by cardiology, (5) Reactive airway disease: Code(s): J45.909 - Unspecified asthma, uncomplicated Category: Medical Qualifiers: Asthma complication type: uncomplicated Asthma persistence: intermittent Asthma severity: mild Qualified Code(s): J45.20 - Mild intermittent asthma, uncomplicated Plan: Has albuterol inhaler which she uses only as needed for says of bronchospasm port about by her allergies (6) Left tibial neuropathy: Code(s): G57.42 - Lesion of medial popliteal nerve, left lower limb Category: Medical Plan: Currently being followed at the pain clinic currently on gabapentin oxycodone (7) MDD (major depressive disorder): Code(s): F32.9 - Major depressive disorder, single episode, unspecified Category: Medical Qualifiers: Active/Remission status: currently active Major depression episode severity: moderate Major depression recurrence: recurrent Qualified Code(s): F33.1 - Major depressive disorder, recurrent, moderate Plan: She sees her therapist via zoom once a week, does not want to start any medications at present time Orders: Orders TSH reflex Free T4 08/14/24 Z00.01 - Encounter for general adult medical examination with abnormal findings, Z13.1 - Encounter for screening for diabetes mellitus, Z13.220 - Encounter for screening for lipoid disorders, Z83.49 - Family history of other endocrine, nutritional and metabolic diseases Alanine Aminotransferase 08/14/24 Z00.01 - Encounter for general adult medical examination with abnormal findings, Z13.1 - Encounter for screening for diabetes mellitus, Z13.220 - Encounter for screening for lipoid disorders, Z83.49 - Family history of other endocrine, nutritional and metabolic diseases Lipid Panel 08/14/24 Z00.01 - Encounter for general adult medical examination with abnormal findings, Z13.1 - Encounter for screening for diabetes mellitus, Z13.220 - Encounter for screening for lipoid disorders, Z83.49 - Family history of other endocrine, nutritional and metabolic diseases Aspartate Amino Transferase 08/14/24 Z00.01 - Encounter for general adult medical examination with abnormal findings, Z13.1 - Encounter for screening for diabetes mellitus, Z13.220 - Encounter for screening for lipoid disorders, Z83.49 - Family history of other endocrine, nutritional and metabolic diseases Vitamin D 25-OH Total 08/14/24 Z00.01 - Encounter for general adult medical examination with abnormal findings, Z13.1 - Encounter for screening for diabetes mellitus, Z13.220 - Encounter for screening for lipoid disorders, Z83.49 - Family history of other endocrine, nutritional and metabolic diseases Influenza [id number] Immunization 08/14/24 Z23 - Encounter for immunization 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
== END 2024-08-14 11:40 | disposition home or self-care (01) ==
PROVIDERS: PCP Internal Medicine; Visit Provider Internal Medicine
DX: Z12.4 Encounter for screening for malignant neoplasm of cervix (principal); Z00.01 Encounter for general adult medical examination with abnormal findings; M24.542 Contracture, left hand; I51.81 Takotsubo syndrome; J45.20 Mild intermittent asthma, uncomplicated; G57.42 Lesion of medial popliteal nerve, left lower limb; F33.1 Major depressive disorder, recurrent, moderate; Z00.00 Encounter for general adult medical examination without abnormal findings

== ENCOUNTER → 2024-08-14 09:41 | Outpatient (BNVA) | payer OTHER, SELFPAY | PROVIDERS: PCP Internal Medicine; Visit Provider Internal Medicine | DX: Z00.01 Encounter for general adult medical examination with abnormal findings (principal); Z23 Encounter for immunization; M24.542 Contracture, left hand; I51.81 Takotsubo syndrome; J45.20 Mild intermittent asthma, uncomplicated; G57.42 Lesion of medial popliteal nerve, left lower limb; F33.1 Major depressive disorder, recurrent, moderate | CPT/HCPCS: 90471; 90656; 96127; 99395; 99497 ==

== ENCOUNTER 2024-08-15 07:07 | Outpatient (REF) | payer OTHER, SELFPAY ==
[2024-08-15 10:14] LABS: Alanine Aminotransferase 16 U/L (0-31); Aspartate Amino Transferase 19 U/L (5-31); Cholesterol 245 mg/dL (<200); HDL Cholesterol 89 mg/dL (>40); LDL Cholesterol Calculated 136 mg/dL (<100); Triglycerides 104 mg/dL (<150)
== END 2024-08-15 07:08 | disposition home or self-care (01) ==
LOC: HO.HMGCLDS 07:07
PROVIDERS: PCP Internal Medicine; Visit Provider Internal Medicine
DX: Z00.01 Encounter for general adult medical examination with abnormal findings (principal); Z13.220 Encounter for screening for lipoid disorders; Z13.1 Encounter for screening for diabetes mellitus; Z83.49 Family history of other endocrine, nutritional and metabolic diseases
CPT/HCPCS: 36415; 80061; 82306; 84443; 84450; 84460

== ENCOUNTER 2025-01-11 20:56 | Emergency (ER) | payer OTHER, SELFPAY ==
--- NOTE | ~2025-01-11 | XR_ITS ---
CLINICAL HISTORY: ankle pain swelling s p fall downstairs. 6 view left ankle Comparison: None Findings: There is diffuse bony demineralization, limiting this examination. A displaced fracture is identified at the medial malleolus. A fracture of the distal left fibula is also present, extending from the level of the ankle mortise slightly proximally. There appears to be posterolateral displacement and angulation of the distal fracture fragments. The talar dome appears intact. There is anterior subluxation of the tibial plafond with respect to the talar dome. Posterior malleolus fracture present. The ankle mortise is disrupted. IMPRESSION: 1. Displaced trimalleolar fracture present at the left ankle as described above with associated disruption of the ankle mortise. This document has been electronically signed by: Yonis Lerma MD on 01/11/2025 22:41:57
[2025-01-11 21:21] VITALS: BP 120/74; PULSE 76; RESP 16; TEMP 36.5; O2SAT 97; BMI 26.6
[2025-01-11] MEDS: Ibuprofen 600 MG TABLET PO (23:07)
[2025-01-11] MEDS: oxyCODONE HCl Immed Release 5 MG TABLET PO (23:07)
--- NOTE | 2025-01-11 23:15 | ED.LOWEXIN ---
HPI - Extremity Injury (Lower) General Chief Complaint: Extremity Injury, Lower Stated Complaint: left leg inj fell 01/11 Time Seen by Provider: 01/11/25 22:33 Source: patient Mode of arrival: ambulatory Limitations: no limitations History of Present Illness ED Provider: DR. Capellan HPI Narrative: 34-year-old female last stat twisting her left ankle causing her to fall for steps of stairs, came in with left ankle swelling and deformity unable to bear weight on the left lower extremity. No head injury, no neck pain, no other deformity. Related Data Previous Rx's ?Medication ?Instructions ?Recorded albuterol sulfate 90 mcg/actuation 2 puff inhalation Q6H PRN 03/19/24 aerosol inhaler shortness of breath or wheezing #8.5 grams gabapentin 300 mg capsule 300 mg PO TID 30 days #90 caps 11/11/24 oxycodone 5 mg tablet 5 mg PO Q8H PRN pain 21 days #63 12/31/24 tabs ibuprofen 600 mg tablet 600 mg PO Q8H PRN pain #14 tabs 01/11/25 oxycodone 5 mg tablet 5 mg PO BID PRN pain #7 tabs 01/11/25 Allergies Allergy/AdvReac Type Severity Reaction Status Date / Time No Known Allergies Allergy Verified 01/11/25 21:23 Review of Systems Review of Systems: All other systems are reviewed and are negative Constitutional: Reports as per HPI and Reports no additional constitutional complaints Eyes: Reports as per HPI and Reports no additional eye complaints Reports system reviewed and no additional complaints, except as documented Cardiovascular: Reports as per HPI and Reports no additional cardiovascular complaints Respiratory: Reports as per HPI and Reports no additional respiratory complaints Gastrointestinal: Reports as per HPI and Reports no additional gastrointestinal complaints Genitourinary: Reports no additional female genitourinary complaints Musculoskeletal: Reports no additional musculoskeletal complaints Skin/Breast: Reports system reviewed and no additional complaints, except as docu Psychiatric: Reports no additional psychiatric complaints Endocrine: Reports no additional endocrine complaints Hematologic/Lymphatic: Reports no additional hematologic/lymphatic complaints Allergic/Immunologic: Reports no additional allergic/immunologic complaints Reports system reviewed and no additional complaints, except as documented and Reports Abnormal speech present PMFSH Past Medical History Medical History Cervical cancer screening Substance abuse MDD (major depressive disorder) Opioid use disorder 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 Reactive airway disease History of cocaine use 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 Surgical History Status post incision and drainage History of fasciotomy Family History Family History Brother Substance use disorder Paternal Aunt Substance use disorder Maternal Aunt Substance use disorder Social History Social History Household Members: Family and Children Household Members Other:: Parents, siblings, son Housing: House Do you presently have visiting nurse or other home services: No Unable to assess alcohol history related to: Unknown Alcohol intake: former Patient Tobacco Use Status: Current everyday Tobacco user Tobacco use type: Cigarette Cigarettes Per Day: 4 e-Cigarette/Vaping Use: Never Used Use of substances other than those prescribed or required for medical reasons: Unknown Substance Use Type: Heroin Advance Directives: No Advance Directives Information Provided: No Do you have a plan to hurt others: No Plan service: No Current occupational status: unemployed Cognitive needs: No Hearing needs: No Vision needs: Yes Physical Exam Vital Signs: Vital Signs: Last Vital Signs Temp 97.7 F 01/11/25 21:21 Pulse 76 01/11/25 21:21 Resp 16 01/11/25 21:21 BP 120/74 01/11/25 21:21 Pulse Ox 97 01/11/25 21:21 O2 Del Method Room Air 01/11/25 21:21 BMI result Body Mass Index 26.6 Vital signs have been reviewed and appear to be correct. Blood pressure elevated. Heart rate normal. Respiratory rate normal. Temperature normal. Oxygen saturation normal. He is discussed with [facility] orthopedic, [facility], and follow-up with ortho. Medications Administered Discontinued Medications Generic Name Dose Route Start Last Admin Trade Name Freq PRN Reason Stop Dose Admin Ibuprofen 600 mg 01/11/25 22:42 01/11/25 23:07 Ibuprofen 600 Mg Tablet PO 01/11/25 22:43 600 mg ONCE ONE Administration Oxycodone HCl 5 mg 01/11/25 22:42 01/11/25 23:07 Oxycodone Hcl Immed Release 5 Mg Tablet PO 03/01/25 22:43 5 mg ONCE ONE Administration Medical Decision Making Differential Diagnosis Differential Diagnoses: The differential diagnosis associated with the presentation includes (Left ankle fracture, left ankle dislocation, left ankle sprain, neurovascular compromise, head injury, neck injury, extremity injuries, chest injury, abdominal injury.) Admission/Observation Consideration of admission/observation: Escalation of care including admission/observation considered Independent Interpretation I performed an independent interpretation of an: Plain X-Ray (Left ankle:1. Displaced trimalleolar fracture present at the left ankle as described above with associated disruption of the ankle mortise.) Radiology Impression Discussion of test interpretation with radiology: I have reviewed the radiologist's reading. Procedures Orthopedic Splinting/Casting Injury #1: Side: left Lower Extremity Injury Location: ankle Lower Extremity Immobilizer: posterior splint Other Orthopedic Equipment: crutches Discharge Plan Discharge Clinical Impression: Ankle fracture, left Patient Disposition: Home, Self-Care Instructions: Ankle Fracture (ED) Prescriptions: New oxycodone 5 mg tablet 5 mg PO BID PRN (Reason: pain) Qty: 7 0RF Rx Instructions: Partial Fill upon patient request. ibuprofen 600 mg tablet 600 mg PO Q8H PRN (Reason: pain) Qty: 14 0RF No Action gabapentin 300 mg capsule 300 mg PO TID 30 Days Qty: 90 3RF oxycodone 5 mg tablet 5 mg PO Q8H PRN (Reason: pain) 21 Days Qty: 63 0RF Rx Instructions: Partial Fill upon patient request. albuterol sulfate 90 mcg/actuation HFA aerosol inhaler 2 puff inhalation Q6H PRN (Reason: shortness of breath or wheezing) Qty: 8.5 0RF Referrals: Vivian Skinner MD [Primary Care Provider] - Devang Long MD [Physician] - Print Language: [place]
--- NOTE | 2025-01-12 00:53 | PC.NURSE ---
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 MD mancia aware and at bedside. offered patient PT/CM however pt declined.
[2025-01-12] MEDS: Morphine Sulfate Immed Release 15 MG TABLET PO (01:37)
[2025-01-12 01:42] VITALS: BP 118/70; PULSE 70; RESP 16; TEMP 36.6; O2SAT 98
[2025-01-12 01:43] VITALS: BP 118/70; PULSE 70; RESP 16; TEMP 36.6; O2SAT 98
--- NOTE | 2025-01-12 01:43 | PC.NURSE ---
pt medicated per mar prior to discharge. d/c home with brother, wheeled outside in wheelchair. pt instructed to follow up with Dr gaines office for further evaluation of ankle injury.
== END 2025-01-12 01:44 | disposition home or self-care (01) ==
PROVIDERS: Emergency Provider Emergency Medicine; PCP Internal Medicine
DX: S82.852A Displaced trimalleolar fracture of left lower leg, initial encounter for closed fracture (principal); X50.1XXA Overexertion from prolonged static or awkward postures, initial encounter; Y93.89 Activity, other specified; Y92.9 Unspecified place or not applicable; Y99.9 Unspecified external cause status
CPT/HCPCS: 29515; 73610; 99283; 99284

== ENCOUNTER → 2025-01-11 21:50 | Outpatient (BNV) | payer OTHER, SELFPAY | PROVIDERS: Emergency Provider Emergency Medicine; PCP Internal Medicine; Visit Provider Radiology Diagnostic Radiology | DX: S82.852A Displaced trimalleolar fracture of left lower leg, initial encounter for closed fracture (principal) | CPT/HCPCS: 73610 ==

== ENCOUNTER 2025-01-13 10:35 | Outpatient (AMB) | payer OTHER, SELFPAY ==
--- NOTE | 2025-01-13 10:37 | MHC.OFFVIS ---
Vital Signs 01/13/25 10:38 Height 5 ft 3 in Weight 150 lb BMI 26.6 Intake Visit Reasons: FC- Left ankle fx DOI 01/11/25 Intake Note: Evita is a 34 year old female who presents today with her brother for a evaluation of her left ankle fx, DOI 01/11/25. Patient reports she slipped and fell on ice. Patient is in a lot of pain and he feels her pain is radiates up to her ankle. Allergies No Known Allergies Allergy (Verified 01/14/25 06:14) Medication List - Last Reconciled 01/13/25 by Zackary Galvez PA-C albuterol sulfate 90 mcg/actuation 2 puffs inhalation Q6H PRN gabapentin 300 mg PO TID 30 days ibuprofen 600 mg PO Q8H PRN oxycodone 5 mg PO BID PRN oxycodone 5 mg PO Q8H PRN 21 days HPI HPI FC- Left ankle fx DOI 01/11/25: Details: 34 yo female presents to the office today for an injury she sustained to her left ankle on 01/11/25. She states she slipped on ice and fell, she was seen in the ED, xrays obtained which showed a fracture / dislocation of the left ankle . She did not have a reduction in the ED. She was placed in a splint and referred to our office for ortho eval. 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 Substance abuse Surgical History [place] teeth removed History of fasciotomy Status post incision and drainage Family History Brother Substance use disorder Paternal Aunt Substance use disorder Maternal Aunt Substance use disorder Social History Household Members: Family Household Members Other:: Parents, siblings, son Housing: House Are you a primary child care counselor to a significant other at home: No Do you presently have visiting nurse or other home services: No Unable to assess alcohol history related to: Unknown Alcohol intake: former Patient Tobacco Use Status: Current everyday Tobacco user Tobacco use type: Cigarette Cigarettes Per Day: 4 Years Smoked: 20 Smoked in Last 30 Days: Yes e-Cigarette/Vaping Use: Never Used Patient Interested in Nicotine Replacement: No Use of substances other than those prescribed or required for medical reasons: Yes Substance Use Type: Marijuana Substance Use Type Other:: Daily marijuana Substance Use Frequency: Daily Currently Displaying Signs/Symptoms of Drug Intoxication Withdrawal: No Have you been hit, kicked, punched, or otherwise hurt by someone within the past year? If so, by whom?: No Do you feel safe in your current relationship?: Yes Is there a partner from a previous relationship who is making you feel unsafe now?: No Are you made to feel afraid or neglected: No Are you DNR?: No Advance Directives: No Advance Directives Information Provided: No Advance Directives on File: No (NONE SCANNED IN) Do you have a plan to hurt others: No Plan Recently lost weight without trying: No How much weight loss: Not applicable Eating poorly because of decreased appetite: No Nutrition screen score: 0 Nutrition Risks: No Nutritional Risk Patient : No : No Poor oral hygiene: Yes (missing teeth) service: No Current occupational status: unemployed Cognitive needs: No Hearing needs: No Vision needs: Yes Review of Systems Const All systems reviewed & are unremarkable except as noted in HPI and below Physical Exam Vital Signs: BMI result Body Mass Index 26.6 Const General: cooperative and no acute distress Orientation/consciousness: patient oriented x3 Resp Effort & Inspection: normal respiratory effort and able to speak in complete sentences Cardio Peripheral pulses: Peripheral pulses 2+ throughout Neuro General: patient oriented x3 Extrem Other: Left ankle swelling with fracture blister over the medial side of the ankle with bony prominence over the anterior aspect of the ankle with redness and tenderness to palpation. There is ecchymosis over the dorsum of the foot , pulses present and cap refill brisk. Results Reviewed Results Reviewed: xrays of the left ankle obtained in the ED on 01/11/25 show trimal ankle fracture with anterior dislocation of the tibia Assessment & Plan Assessment & Plan (1) Trimalleolar fracture of left ankle: Code(s): S82.852A - Displaced trimalleolar fracture of left lower leg, initial encounter for closed fracture Category: Medical Qualifiers: Encounter type: initial encounter Fracture type: closed Qualified Code(s): S82.852A - Displaced trimalleolar fracture of left lower leg, initial encounter for closed fracture Plan: Dr Long was available to see the patient with me today. Given the amount of displacement of the joint, the plan is to direct admit the patient for surgical planning. I discussed the extent of the injury to the patient. With the extent of the fracture pattern and high risk of further displacement and instability, I recommended surgical intervention to help with stability and restoring anatomy. I explained to the patient the procedure in detail along with the risks benefits and alternatives. Risks including but not limited to infection, wound breakdown, stiffness, on going pain, nonunion or malunion, and possible complications with hardware. She does understand all this,she is content with direct admission to the hospital and would like to proceed with closed versus open reduction internal fixation vs external fixation with Dr Long. She will be NPO after midnight. All questions answered. Coding Level of Care Code Est Pt Level 4 (41718) Complex EM visit Add On G2211 Diagnoses Closed trimalleolar fracture of left ankle, initial encounter S82.852A Encounter type: initial encounter Fracture type: closed
[2025-01-13 10:38] VITALS: BMI 26.6
--- OUTSIDE RECORDS SUMMARY | 2025-01-13 12:22 | XMS_ITS | Encounter Summary ---
Author Organization [facility] Address [address] [place] [address] Care Team Providers Care Scale Operator Name Role Phone Vivian Skinner MD Primary Care Provider Reason for Visit * Reason Onset Date Comments PAC Surgery/procedure Scheduling-Norberto 02/2025 Encounter Details Date Type Department Care Team (Late st Contact Info) Description 12/17/2024 Telephone [facility] Upper Extrem[facility] [address] [place] [address] Telephone Intake, Staff PAC Surgery/procedure Scheduling-Norberto Social History Tobacco Use Types Packs/Day Years Used Date Smoking Tobacco: Never Assessed Comments Unknown Sex and Gender Information Value Date Recorded Sex Assigned at Female 09/10/2024 6:36 AM EDT Legal Sex Female 6:45 PM EDT Gender Identity Female 09/10/2024 6:36 AM EDT Sexual Orientation Choose not to disclose 2023 6:36 AM EDT documented as of this encounter Miscellaneous Notes * Telephone Encounter - Rachael Adan - 12/24/2024 9:06 AM EST Patient called back again to know an update from Janine regarding scheduling surgery for tendon transplant with Dr Thornton. Please call Evita at [phone] and discuss. Thank you. * Telephone Encounter - Nuzhat Nguyễn - 12/17/2024 9:02 AM EST Would like to speak to Janine to schedule surgery with Dr Thornton. Please call Evita at [phone] documented in this encounter Plan of Treatment Upcoming Encounters Date Type Department Care Team (Latest Contact Info) Description 02/10/2025 Hospital Encounter Scheduled Procedures Name Priority Associated Diagnoses Date/Ti me RELEASE, INTRINSIC MUSCLES O F HAND, EACH MUSCLE Contracture of left hand TENDON TRANSPLANTATION OR TR ANSFER, FLEXOR OR EXTENSOR, FOREARM AND/OR WRIST, EACH TENDON Contracture of left hand documented as of this encounter Visit Diagnoses Not on filedocumented in this encounter Care Teams Scale Operator Relationship Specialty Start Date End Date Vivian Skinner MD [address] [place] [address] PCP - General Internal Medicine 08/13/24 documented as of this encounter
--- OUTSIDE RECORDS SUMMARY | 2025-01-13 12:22 | XMS_ITS | Encounter Summary ---
Author Organization [facility] Address [address] [place] [address] Care Team Providers Care Armament Repairer Name Role Phone Vivian Skinner MD Primary Care Provider Encounter Details Date Type Department Care Team (Late st Contact Info) Description 01/10/2025 Prep for Case [facility] and Upper Extremity Center [address] [place] [address] Ovidio Thornton MD [address], [place] [phone] Contracture of left hand (Primary Dx) Social History Tobacco Use Types Packs/Day Years Used Date Smoking Tobacco: Never Assessed Comments Unknown Sex and Gender Information Value Date Recorded Sex Assigned at Female 09/10/2024 6:36 AM EDT Legal Sex Female 6:45 PM EDT Gender Identity Female 09/10/2024 6:36 AM EDT Sexual Orientation Choose not to disclose 2023 6:36 AM EDT documented as of this encounter Plan of Treatment Upcoming Encounters Date Type Department Care Team (Latest Contact Info) Description 02/10/2025 Hospital Encounter Scheduled Procedures Name Priority Associated Diagnoses Date/Ti me RELEASE, INTRINSIC MUSCLES O F HAND, EACH MUSCLE Contracture of left hand TENDON TRANSPLANTATION OR TR ANSFER, FLEXOR OR EXTENSOR, FOREARM AND/OR WRIST, EACH TENDON Contracture of left hand documented as of this encounter Visit Diagnoses Diagnosis Contracture of left hand- Primary Contracture of left hand- Primary documented in this encounter Care Teams Armament Repairer Relationship Specialty Start Date End Date Vivian Skinner MD [address] [place], [place] [phone] PCP - General Internal Medicine 08/13/24 documented as of this encounter
--- OUTSIDE RECORDS SUMMARY | 2025-01-13 12:23 | XMS_ITS | Referral Summary ---
Author Organization [facility] Address [address] [place] [address] Care Team Providers Care Filler Operator Name Role Phone Vivian Skinner MD Primary Care Provider Encounters Date Type Department Care Team Description 01/10/2025 Prep for Case [facility] Hand [place] [address] Ovidio Thornton MD Contracture of left hand (Primary Dx) 12/17/2024 Telephone [facility] Hand [place] [address] Telephone Intake, Staff PAC Surgery/procedure Scheduling-[facility] to 12/10/2024 9:45 AM EST Follow-Up [facility] [place] [address] Ovidio Thornton MD Compression neuropathy of upper extremity, left (Primary Dx) 12/10/2024 8:45 AM EST Procedure visit [facility] Hand [place] [address] Ovidio Thornton MD Williams, Faren H., MD Compression neuropathy of upper extremity, left (Primary Dx); Contracture of left hand 10/24/2024 Telephone [facility] Upper Extremity [address] [address] Ovidio Thornton MD PAC RECORDS REQUEST - [place] from Last 3 Months Allergies No known active allergies Medications No known medications Active Problems Problem Noted Date Diagnosed Date Contracture of left hand 01/10/2025 Social History Tobacco Use Types Packs/Day Years Used Date Smoking Tobacco: Never Assessed Comments Unknown Sex and Gender Information Value Date Recorded Sex Assigned at Female 09/10/2024 6:36 AM EDT Legal Sex Female 6:45 PM EDT Gender Identity Female 09/10/2024 6:36 AM EDT Sexual Orientation Choose not to disclose 2023 6:36 AM EDT Plan of Treatment Upcoming Encounters Date Type Department Care Team (Latest Contact Info) Description 02/10/2025 Hospital Encounter Scheduled Procedures Name Priority Associated Diagnoses Date/Ti me RELEASE, INTRINSIC MUSCLES O F HAND, EACH MUSCLE Contracture of left hand TENDON TRANSPLANTATION OR TR ANSFER, FLEXOR OR EXTENSOR, FOREARM AND/OR WRIST, EACH TENDON Contracture of left hand Procedures * Due to [place] [email or web address] law, this organization might not be sharing negative HIV tests. Procedure Name Priority Date/Time Associated Diagnosis Comments AR NEEDLE EMG EA EXTREMTY W/PARASPINL AREA COMPLETE Routine 12/10/2024 9:51 AM EST Compression neuropathy of upper extremity, left AR MOTOR &/SENS 13/> NRV CNDJ PRECONF ELTRODE LIMB Routine 12/10/2024 9:51 AM EST Compression neuropathy of upper extremity, left from Last 3 Months Results * Due to [place] [employer] law, this organization might not be sharing negative HIV tests. * AR MOTOR &/SENS 13/> NRV CNDJ PRECONF ELTRODE LIMB, AR NEEDLE EMG EA EXTREMTY W/PARASPINL AREA COMPLETE (12/10/2024 9:51 AM EST) Narrative Venkatesh Chaidez MD - 12/10/2024 9:51 AM EST Venkatesh Chaidez MD ? 12/10/2024 12:27 PM Physiatry EMG/NCS Authorized by: Venkatesh Chaidez MD ?? Performed by: Venkatesh Chaidez MD us Venkatesh Chaidez MD IN CLINIC/BEDSIDE ORDERABLE S Final Result from Last 3 Months Insurance [facility] MEDICAID Care Teams Filler Operator Relationship Specialty Start Date End Date Vivian Skinner MD [address] [place] [address] PCP - General Internal Medicine 08/13/24
--- OUTSIDE RECORDS SUMMARY | 2025-01-13 12:23 | XMS_ITS | Clinical Summary ---
Author Organization [facility] Address [address] [place] [address] Care Team Providers Care Hadoop Application Developer Name Role Phone Vivian Skinner MD Primary Care Provider Allergies No known active allergies Medications No known medications Active Problems Problem Noted Date Diagnosed Date Contracture of left hand 01/10/2025 Encounters Date Type Department Care Team Description 01/10/2025 Prep for Case [facility] and Upper Extremity [facility] [address] [place] [phone] Ovidio Thornton MD Contracture of left hand (Primary Dx) 12/17/2024 Telephone [facility] [address] [place] [phone] Telephone Intake, Staff PAC Surgery/procedure Scheduling- to 12/10/2024 9:45 AM EST Follow-Up [facility] [address] [place] [address] Ovidio Thornton MD Compression neuropathy of upper extremity, left (Primary Dx) 12/10/2024 8:45 AM EST Procedure visit [facility] [address] [place] [phone] Ovidio Thornton MD Williams, Faren H., MD Compression neuropathy of upper extremity, left (Primary Dx); Contracture of left hand 10/24/2024 Telephone [facility] [address] [place] [phone] Ovidio Thornton MD PAC RECORDS REQUEST - [place] from Last 3 Months Social History Tobacco Use Types Packs/Day Years [...] WRIST, EACH TENDON Contracture of left hand Health Maintenance Due Date Last Done Comments Cervical Cancer Screening 1989 HIV Screening 1989 HPV and Pap Smear 1989 Hepatitis C Screening 1989 Pap Smear 1989 Varicella Vaccines (1 of 2 - 13+ 2-dose series) 2002 Hepatitis B Vaccines (1 of 3 - 19+ 3-dose series) 2008 DTaP,Tdap,and Td Vaccines (1 - Tdap) 2011 COVID-19 Vaccine ( - 2023-2 5 season) 2024 Influenza Vaccine (#1) 2024 Alcohol/Substance Use Screening 11/13/2024 Depression Screening and Follow-Up 11/13/2024 Social Drivers of Health Mica ual Screening 11/13/2024 RSV Vaccine (60+ years old a nd patients) (1 - 1-dose 75+ series) 2064 Pneumococcal Vaccine: Pediat soy (0-5 Years) and At-Risk Patients (6-50 Years) Aged Out No longer eligible b ased on patient's age to complete this topic Procedures * Due to [place] state law, this organization might not be sharing negative HIV tests. Procedure Name Priority Date/Time Associated Diagnosis Comments [place] NEEDLE EMG EA EXTREMTY W/PARASPINL AREA COMPLETE Routine 12/10/2024 9:51 AM EST Compression neuropathy of upper extremity, left [place] MOTOR &/SENS 13/> NRV CNDJ PRECONF ELTRODE LIMB Routine 12/10/2024 9:51 AM EST Compression neuropathy of upper extremity, left from Last 3 Months Results * Due to [place] state law, this organization might not be sharing negative HIV tests. * [place] MOTOR &/SENS 13/> NRV CNDJ PRECONF ELTRODE LIMB, [place] NEEDLE EMG EA EXTREMTY W/PARASPINL AREA COMPLETE (12/10/2024 9:51 AM EST) Narrative Venkatesh Chaidez MD - 12/10/2024 9:51 AM EST Venkatesh Chaidez MD ? 12/10/2024 12:27 PM Physiatry EMG/NCS Authorized by: Venkatesh Chaidez MD ?? Performed by: Venkatesh Chaidez MD us Venkatesh Chaidez MD IN CLINIC/BEDSIDE ORDERABLE S Final Result from Last 3 Months Insurance [employer] MED[employer] Care Teams Hadoop Application Developer Relationship Specialty Start Date End Date Vivian Skinner MD [address] [place] [address] PCP - General Internal Medicine 08/13/24
== END 2025-01-13 11:57 | disposition home or self-care (01) ==
PROVIDERS: PCP Internal Medicine; Visit Provider Physician Assistant
DX: S82.852A Displaced trimalleolar fracture of left lower leg, initial encounter for closed fracture (principal); W00.0XXA Fall on same level due to ice and snow, initial encounter
CPT/HCPCS: 99214; G2211

== ENCOUNTER → 2025-01-13 10:35 | Outpatient (BNVA) | payer OTHER, SELFPAY | PROVIDERS: PCP Internal Medicine; Visit Provider Physician Assistant | DX: S82.852A Displaced trimalleolar fracture of left lower leg, initial encounter for closed fracture (principal) | CPT/HCPCS: 99212 ==

== ENCOUNTER 2025-01-13 12:16 | Outpatient (BNV) | payer OTHER, SELFPAY | END 2025-01-16 09:00 | PROVIDERS: Admitting Provider Physician Assistant; PCP Internal Medicine; Visit Provider Radiology Diagnostic Radiology | DX: S82.852A Displaced trimalleolar fracture of left lower leg, initial encounter for closed fracture (principal) | CPT/HCPCS: 73610; 73700 ==

== ENCOUNTER 2025-01-13 12:16 | Inpatient (IN) | payer OTHER, SELFPAY ==
--- NOTE | ~2025-01-13 | XR_ITS ---
EXAMINATION: XR ANKLE, LEFT CLINICAL INFORMATION: trimal fx COMPARISON: January 11, 2025 TECHNIQUE: AP, lateral, and mortise views of the left ankle. FINDINGS: Acute comminuted displaced fracture dislocation of the left ankle with a fiberglass cast. No callus formation. XR/XR ankle LT min 3V IMPRESSION: Fiberglas cast placed. No gross change. Electronically signed by: Blane Queen MD 01/16/2025 09:45 AM [facility]
--- NOTE | ~2025-01-13 | FL_ITS ---
EXAMINATION: XR FLUOROSCOPY WITH IMAGES CLINICAL INFORMATION: ORIF left ankle fracture. COMPARISON: Left ankle radiographs 01/16/2025. TECHNIQUE: Fluoroscopy provided to: Dr. Long Fluoroscopy time: 0.6 minutes DAP: 0.0240 mGycm2 Images: 3 FINDINGS: 3 images left ankle obtained during ORIF. Refer to the full procedure report for details. FL/FL guidance in OR IMPRESSION: Fluoroscopic guidance. Electronically signed by: Horacio Watts MD 01/22/2025 08:54 AM EDT
--- NOTE | ~2025-01-13 | CT_ITS ---
EXAMINATION: CT left ankle without IV contrast. CLINICAL INDICATION: Trimalleolar fracture. COMPARISON: Left ankle x-ray 01/11/2025. TECHNIQUE: 2 mm thin axial and reformatted 2 mm thin sagittal and coronal images of left ankle were obtained without contrast..This CT examination was performed using dose optimization techniques as appropriate, variously including the following: * Automated exposure control * Adjustment of mA and/or kV according to patient size (this includes techniques or standardized protocols for targeted exams where dose is matched to indication/reason for exam; i.e. extremities or head) * Use of iterative reconstruction technique DLP: 175 mGy/cm. FINDINGS: There is a comminuted posterior malleolar intra-articular, comminuted medial malleolar intra-articular and in oblique intra-articular fibular fracture with moderate displacement. Minimal displacement seen within the posterior malleolar comminuted fracture.. There is increased distance in tibiotalar joint anteriorly suspicious of anterior tibiotalar ligament contusion or tear. The subtalar joint is normal. There is moderate soft tissue edema most localized along the lateral and, anterior and medial compartments of the ankle. No major soft tissue edema seen along the posterior ankle. Visualized talus, calcaneus, cuboid and cuneiform bones are normal. Metatarsal bones are normal as well. There is diffuse osteopenia. There is moderate edema in the dorsal region. CT/CT ankle LT wo IV con IMPRESSION: Comminuted fracture with contrast and extension and mild displacement posterior and medial malleoli distal tibia. Moderately displaced oblique distal fibular fracture with intra-articular extension. There is moderate edema surrounding the anterior medial and lateral compartments of the ankle. There is mild distraction of anterior tibiotalar joint. The tarsal and metatarsal bones are intact. There is diffuse osteopenia. Electronically signed by: Cristopher Ambriz MD 01/16/2025 03:16 PM EST
--- NOTE | ~2025-01-13 | FL_ITS ---
EXAMINATION: FLUOROSCOPY GUIDANCE FOR NEEDLE PLACEMENT CLINICAL INFORMATION: left ankle ORIF COMPARISON: None available. TECHNIQUE: 3 views FINDINGS: The posterior malleolar tibial fracture and an oblique displaced distal fibular fracture in alignment status post placement of a left leg in a hard cast. The ankle mortise and subtalar joints are in alignment. FLUOROSCOPY TIME: 0.2 minutes DOSE AREA PRODUCT: 0.433 uGy-m2 (microgray-meter squared) FL/FL guidance in OR IMPRESSION: Satisfactory alignment of distal fibular and posterior malleolar fractures following placement of ankle in a hard cast. Electronically signed by: Cristopher Ambriz MD 01/14/2025 09:23 AM [facility]
[2025-01-13 12:37] VITALS: BMI 33.7
[2025-01-13 12:38] VITALS: BP 122/82; PULSE 79; RESP 20; TEMP 36.1; O2SAT 100
[2025-01-13] MEDS: oxyCODONE HCl Immed Release 5 MG TABLET PO ×2 (13:06→18:11)
[2025-01-13] MEDS: Acetaminophen 325 MG TABLET 650 MG PO ×2 (13:07→22:46)
--- NOTE | 2025-01-13 13:41 | PHA.MEDREC ---
Pharmacy Consult ? Medication Reconciliation Pharmacy has completed the medication reconciliation. Spoke with patient
--- OUTSIDE RECORDS SUMMARY | 2025-01-13 14:24 | XMS_ITS | Encounter Summary ---
Author Organization [facility] Address [address] [place] [address] Care Team Providers Care Grinder Operator Automatic Name Role Phone Vivian Skinner MD Primary Care Provider Encounter Details Date Type Department Care Team (Late st Contact Info) Description 01/10/2025 Prep for Case [facility] Hand and Upper Extremity Center [address] [place] [address] Ovidio Thornton MD [address], [place] [phone] Contracture of left hand (Primary Dx) Social [...] Primary documented in this encounter Care Teams Grinder Operator Automatic Relationship Specialty Start Date End Date Vivian Skinner MD [address] [place], [place] [phone] PCP - General Internal Medicine 08/13/24 documented as of this encounter
--- OUTSIDE RECORDS SUMMARY | 2025-01-13 14:24 | XMS_ITS | Clinical Summary ---
Author Organization [facility] Address [address] [place] [address] Care Team Providers Care Explosive Operator Name Role Phone Vivian Skinner MD Primary Care Provider Allergies No known active allergies Medications No known medications Active Problems Problem Noted Date Diagnosed Date Contracture of left hand 01/10/2025 Encounters Date Type Department Care Team Description 01/10/2025 Prep for Case [facility] Upper Extremity [facility] [address] [place] [phone] Ovidio Thornton MD Contracture of left hand (Primary Dx) 12/17/2024 Telephone [facility] Upper Extrem[facility] [address] [place] [phone] Telephone Intake, Staff PAC Surgery/procedure Scheduling- to 12/10/2024 9:45 AM EST Follow-Up [facility] Extrem[facility] [address] [place] [address] Ovidio Thornton MD Compression neuropathy of upper extremity, left (Primary Dx) 12/10/2024 8:45 AM EST Procedure visit [facility] Ext[facility] [address] [place] [address] Ovidio Thornton MD Williams, Faren H., MD Compression neuropathy of upper extremity, left (Primary Dx); Contracture of left hand 10/24/2024 Telephone [facility] [address] [place] [address] Ovidio Thornton MD PAC RECORDS REQUEST - [...] complete this topic Procedures * Due to [place] state law, this organization might not be [...] Last 3 Months Results * Due to [place] state law, this organization might not be [...] 3 Months Insurance [employer] Care Teams Explosive Operator Relationship Specialty Start Date End Date Vivian Skinner MD [address] [place] [address] PCP - General Internal Medicine 08/13/24
--- OUTSIDE RECORDS SUMMARY | 2025-01-13 14:24 | XMS_ITS | Encounter Summary ---
Author Organization [facility] Address [address] [place] [address] Care Team Providers Care Order Entry Administrator Name Role Phone Vivian Skinner MD Primary Care Provider Reason for Visit * Reason Onset Date Comments PAC Surgery/procedure Scheduling-Norberto 02/2025 Encounter Details Date Type Department Care Team (Late st Contact Info) Description 12/17/2024 Telephone [facility] and Upper Extremity Center [address] [place] [address] Telephone Intake, Staff PAC Surgery/procedure Scheduling-Norberto Social [...] with Dr Thornton. Please call Evita at [phone] and discuss. Thank you. * Telephone Encounter - Nuzhat Nguyễn - 12/17/2024 9:02 AM EST Would like to speak to Janine to schedule surgery with Dr Thornton. Please call Evita at [phone] documented in this encounter Plan of Treatment [...] on filedocumented in this encounter Care Teams Order Entry Administrator Relationship Specialty Start Date End Date Vivian Skinner MD [address] [place] [address] PCP - General Internal Medicine 08/13/24 documented as of this encounter
--- OUTSIDE RECORDS SUMMARY | 2025-01-13 14:24 | XMS_ITS | Referral Summary ---
Author Organization [facility] Address [address] [place] [address] Care Team Providers Care Buffer Machine Name Role Phone Vivian Skinner MD Primary Care Provider Encounters Date Type Department Care Team Description 01/10/2025 Prep for Case [facility] [place] [address] Ovidio Thornton MD Contracture of left hand (Primary Dx) 12/17/2024 Telephone [facility] [place] [address] Telephone Intake, Staff PAC Surgery/procedure Scheduling-[facility] to 12/10/2024 9:45 AM EST Follow-Up [facility] [place] [address] Ovidio Thornton MD Compression neuropathy of upper extremity, left (Primary Dx) 12/10/2024 8:45 AM EST Procedure visit [facility] [place] [address] Ovidio Thornton MD Williams, Faren H., MD Compression neuropathy of upper extremity, left (Primary Dx); Contracture of left hand 10/24/2024 Telephone [facility] Hand and Upper Extremity [address] [address] Ovidio Thornton MD PAC RECORDS REQUEST - [...] of left hand Procedures * Due to [place] [employer] law, this organization might not be sharing negative HIV tests. Procedure Name Priority Date/Time Associated Diagnosis Comments [place] NEEDLE EMG EA EXTREMTY W/PARASPINL AREA COMPLETE Routine 12/10/2024 9:51 AM EST Compression neuropathy of upper extremity, left [place] MOTOR &/SENS 13/> NRV CNDJ PRECONF ELTRODE LIMB Routine 12/10/2024 9:51 AM EST Compression neuropathy of upper extremity, left from Last 3 Months Results * Due to [place] [employer] law, this organization might not be sharing negative HIV tests. * [place] MOTOR &/SENS 13/> NRV CNDJ PRECONF ELTRODE LIMB, [place] NEEDLE EMG EA EXTREMTY W/PARASPINL AREA COMPLETE (12/10/2024 9:51 AM EST) Narrative Venkatesh Chaidez MD - 12/10/2024 9:51 AM EST Venkatesh Chaidez MD ? 12/10/2024 12:27 PM Physiatry EMG/NCS Authorized by: Venkatesh Chaidez MD ?? Performed by: Venkatesh Chaidez MD us Venkatesh Chaidez MD IN CLINIC/BEDSIDE ORDERABLE S Final Result from Last 3 Months Insurance [facility] MEDICAID Care Teams Buffer Machine Relationship Specialty Start Date End Date Vivian Skinner MD [address] [place] [address] PCP - General Internal Medicine 08/13/24
[2025-01-13] MEDS: HYDROmorphone HCl 0.5 MG/0.5 ML SYRINGE 0.25 MG IVPUSH ×2 (15:27→20:09)
[2025-01-13 16:18] VITALS: BP 123/76; PULSE 86; RESP 18; TEMP 36.2; O2SAT 98
[2025-01-13 18:06] LABS: UPreg QC Valid YES; Urine Pregnancy NEGATIVE (NEGATIVE)
[2025-01-13 18:07] LABS: Amphetamine Screen Urine Not Detected (Not Detect); Barbiturates, Urine Not Detected (Not Detect); Benzodiazepines Screen Urine Not Detected (Not Detect); Buprenorphine Scr Not Detected (Not Detect); Cannabinoid Screen Urine POSITIVE (Not Detect); Cocaine Screen Urine Not Detected (Not Detect); Fentanyl, urine Not Detected (Not Detect); Methadone Screen, Urine Not Detected (Not Detect); Opiate Screen Urine POSITIVE (Not Detect); Oxycodone Screen Urine Positive (Not Detect); Phencyclidine Screen Urine Not Detected (Not Detect)
--- NOTE | 2025-01-13 18:28 | PC.NURSE ---
Assumed care at 1400, patient alert and oriented, RA sat's above 98%. Using bedside commode, stand and pivot due to ankle fracture. Patient is scheduled for surgery tomorrow (01/14) morning. Patient will be NPO at midnight. C/o pain 5mg oxycodone PRN Q8H not sufficient for pain, patient continues to ask for pain medication after 5mg Oxycodone and 650mg Tylenol. Provider notified, order for dilaudid 0.25mg qh4 PRN ordered and administered. After aprox 1.5 hrs of getting dilaudid patient asked for more pain med. Provider communications engineering technician notified and Oxycodone 5mg order changed from q8h to q6h. Patient received another dose of oxycodone 5mg, patient was also adivsed that Tylenol will not be administered at the same time as oxycodone. Aside from the pain no other complaints.
[2025-01-13 19:38] VITALS: BP 130/82; PULSE 82; RESP 20; TEMP 36.3; O2SAT 100
[2025-01-13] MEDS: Docusate Sodium 100 MG CAPSULE PO (20:10)
--- NOTE | 2025-01-13 21:00 | PC.NURSE ---
pt requesting there home medication gabapentin. Dr. Hathaway informed, this RN was given a verbal order, new order placed per JAN.
[2025-01-13] MEDS: Gabapentin 300 MG CAPSULE PO (22:46)
[2025-01-13 23:50] VITALS: BP 126/74; PULSE 85; RESP 20; TEMP 36.3; O2SAT 100
[2025-01-14] VITALS (13 sets, daily range): BP systolic 107–141; BP diastolic 65–95; PULSE 57–102; RESP 14–20; TEMP 36–37.6; O2SAT 96–99
[2025-01-14] MEDS: HYDROmorphone HCl 0.5 MG/0.5 ML SYRINGE 0.25 MG IVPUSH ×6 (00:16→20:44)
[2025-01-14] MEDS: oxyCODONE HCl Immed Release 5 MG TABLET PO ×5 (01:42→22:01)
[2025-01-14] MEDS: Lactated Ringers 1,000 ML 80 ML IVCONT (07:04)
--- NOTE | 2025-01-14 07:29 | MHC.SHP ---
Pre-Procedural Eval Section A - 24 Hr Update-Section A only Date of Service: 01/14/25 The patient is an INPATIENT: Yes Changes since office visit: No Cold of Flu in the past 2 weeks, No New Medical Problems, No Changes in Medication and No Patient answered all questions The patient has been examined within 24 hours of the surgical procedure. The History & Physical has been completed within 30 days and I have reviewed it.: Yes Section B - Complete if H&P > 30 days Chief Complaint: L ankle fracture Allergies: Allergies Allergy/AdvReac Type Severity Reaction Status Date / Time No Known Allergies Allergy Verified 01/14/25 06:14 Plan I have reviewed the history and physical and performed a pertinent physical examination on my patient. No changes have occurred unless specified. Time Spent With Patient Time: Total time managing care of this patient today ____ minutes.
--- NOTE | 2025-01-14 08:31 | PM.OP ---
Brief Operative Note Date of Service: 01/14/25 Pre-op diagnosis: Trimalleolar ankle fracture, left Post-op diagnosis: same Procedure: Closed reduction left ankle Surgeon: Devang Long MD Anesthesia: GETA Was an Transfer Table Operator used for this Procedure?: Yes Transfer Table Operator: Zackary Galvez Estimated blood loss (mL): 0 Tourniquet time (min): 0 IV fluids (mL): 500 Pathology: none sent Condition: stable Disposition: PACU
--- NOTE | 2025-01-14 08:37 | HO.ANESPROP2 ---
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 MDD (major depressive disorder) Opioid use disorder 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 Substance abuse Family History Family History Brother Substance use disorder Paternal Aunt Substance use disorder Maternal Aunt Substance use disorder Family history of problems with anesthesia: No Surgical History Surgical History [place] teeth removed History of fasciotomy Status post incision and drainage History of Problems with Anesthesia: No Social History Social History Household Members: Family Household Members Other:: Parents, siblings, son Housing: House Are you a primary in home caregiver to a significant other at home: No Do you presently have visiting nurse or other home services: No Unable to assess alcohol history related to: Unknown Alcohol intake: former Comment: no counts done after initial count due to not using anything on the table Patient Tobacco Use Status: Current everyday Tobacco user Tobacco use type: Cigarette Cigarettes Per Day: 4 Years Smoked: 20 Smoked in Last 30 Days: Yes e-Cigarette/Vaping Use: Never Used Patient Interested in Nicotine Replacement: No Use of substances other than those prescribed or required for medical reasons: Yes Substance Use Type: Marijuana Substance Use Type Other:: Daily marijuana Substance Use Frequency: Daily Currently Displaying Signs/Symptoms of Drug Intoxication Withdrawal: No Have you been hit, kicked, punched, or otherwise hurt by someone within the past year? If so, by whom?: No Do you feel safe in your current relationship?: Yes Is there a partner from a previous relationship who is making you feel unsafe now?: No Are you made to feel afraid or neglected: No Are you DNR?: No Advance Directives: No Advance Directives Information Provided: No Advance Directives on File: No (NONE SCANNED IN) Do you have a plan to hurt others: No Plan Recently lost weight without trying: No How much weight loss: Not applicable Eating poorly because of decreased appetite: No Nutrition screen score: 0 Nutrition Risks: No Nutritional Risk Patient : No : No Poor oral hygiene: Yes (missing teeth) service: No Current occupational status: unemployed Cognitive needs: No Hearing needs: No Vision needs: Yes Meds Allergies Allergy/AdvReac Type Severity Reaction Status Date / Time No Known Allergies Allergy Verified 01/14/25 06:14 Active Medications: Current Medications Acetaminophen (Acetaminophen 325 Mg Tablet) 650 mg PO Q6H PRN PRN Reason: Pain, Mild 1-3,fever,headache Last Admin: 01/13/25 22:46 Dose: 650 mg Docusate Sodium (Docusate Sodium 100 Mg Capsule) 100 mg PO BID [facility] Last Admin: 01/13/25 20:10 Dose: 100 mg Gabapentin (Gabapentin 300 Mg Capsule) 300 mg PO TID [facility] Last Admin: 01/13/25 22:46 Dose: 300 mg Hydromorphone HCl (Hydromorphone Hcl 0.5 Mg/0.5 Ml Syringe) 0.25 mg IVPUSH Q4H PRN; Protocol PRN Reason: Pain, Moderate(Pain Scale 4-6) Last Admin: 01/14/25 05:12 Dose: 0.25 mg Lactated Ringer's (Lr) 1,000 mls @ 80 mls/hr IVCONT .[id number] [facility] Last Admin: 01/14/25 07:04 Dose: 80 mls/hr Ondansetron HCl (Ondansetron Hcl 4 Mg/2 Ml Vial) 4 mg IVPUSH Q8H PRN PRN Reason: Nausea and Vomiting Oxycodone HCl (Oxycodone Hcl Immed Release 5 Mg Tablet) 5 mg PO Q4H PRN PRN Reason: Pain, Moderate(Pain Scale 4-6) Exam Height,Weight and Vital Signs: Height 5 ft 3 in Weight 86.2 kg Last Vital Signs Temp 99.7 F 01/14/25 06:15 Pulse 70 01/14/25 06:15 Resp 16 01/14/25 06:15 BP 117/85 01/14/25 06:15 Pulse Ox 99 01/14/25 06:15 O2 Del Method Room Air 01/14/25 06:15 Pertinent Lab Results Pertinent Lab Results: Laboratory Tests 01/13/25 17:40 Urine Test NEGATIVE Urine Opiates Screen POSITIVE H Ur Buprenorphine Scrn Not Detected Ur Oxycodone Screen Positive H Urine Methadone Screen Not Detected Urine Fentanyl Screen Not Detected Ur Barbiturates Screen Not Detected Ur Phencyclidine Scrn Not Detected Ur Amphetamines Screen Not Detected U Benzodiazepines Scrn Not Detected Urine Cocaine Screen Not Detected U Marijuana (THC) Screen POSITIVE H Airway Mallampati Class: II TM Dist: >3cm Neck ROM: Full Heart: rrr Lungs: cta Assessment and Plan Assessment Anesthesia Assessment: Chart Reviewed Final Anesthetic Review Family History of Problems with Anesthesia: No History of Problems with Anesthesia: No NPO: Yes ASA Class: III Final Preanesthetic Review: No Changes in Pt Med Stat, Meds/Allgs Chart Reviewed, Consent Obtained/Reviewed and Anes Risks/Benef Reviewed Patient Risk: Intermediate Anesthetic Plan Anesthetic Plan: GA Disposition: Standard PACU
[2025-01-14] MEDS: Acetaminophen 325 MG TABLET 650 MG PO (08:50)
[2025-01-14] MEDS: Gabapentin 300 MG CAPSULE PO ×3 (09:24→20:46)
[2025-01-14] MEDS: Docusate Sodium 100 MG CAPSULE PO ×2 (09:24→20:46)
[2025-01-14] MEDS: Celecoxib 200 MG CAPSULE PO ×2 (10:17→20:46)
[2025-01-14] MEDS: Acetaminophen 1,000 MG/100 ML PIGGYBACK 400 MG IV ×3 (10:17→22:01)
--- NOTE | 2025-01-14 10:31 | MHC.CM.PN ---
PT LIVES WITH PARENTS IS INDEPEDENT HAS OWN RIDE HOME DC PLAN HOME NO SERVICES
[2025-01-15] MEDS: HYDROmorphone HCl 0.5 MG/0.5 ML SYRINGE 0.25 MG IVPUSH ×4 (00:55→13:16)
[2025-01-15] MEDS: oxyCODONE HCl Immed Release 5 MG TABLET PO ×3 (01:58→11:42)
[2025-01-15 03:12] VITALS: BP 102/63; PULSE 59; RESP 16; TEMP 36.7; O2SAT 98
[2025-01-15] MEDS: Acetaminophen 1,000 MG/100 ML PIGGYBACK 400 MG IV (03:56)
[2025-01-15] MEDS: Docusate Sodium 100 MG CAPSULE PO ×2 (07:22→20:33)
[2025-01-15] MEDS: Gabapentin 300 MG CAPSULE PO ×3 (07:22→20:33)
[2025-01-15] MEDS: Celecoxib 200 MG CAPSULE PO ×2 (07:23→20:33)
--- NOTE | 2025-01-15 07:25 | PM.PNORT ---
Subjective Subjective Date of Service: 01/15/25 Interval history: POD1 s/p left ankle closed reduction Patient is resting in bed comfortably No overnight events Pain is managed No additional complaints Physical Exam Vital Signs: Vital Signs: Last Vital Signs Temp 98.1 F 01/15/25 03:12 Pulse 59 01/15/25 03:12 Resp 16 01/15/25 03:12 BP 102/63 01/15/25 03:12 Pulse Ox 98 01/15/25 03:12 O2 Del Method Room Air 01/15/25 03:12 BMI result Body Mass Index 33.7 Const: General: cooperative, healthy appearing and no acute distress Resp: Effort & Inspection: normal respiratory effort and able to speak in complete sentences Cardio: Rate: regular rate Peripheral pulses: Peripheral pulses 2+ throughout GI: Palpation (GI): Soft to palpation Skin: Lesions: no lesions Rashes: no rashes Extrem: Other: LLE in splint, elevated on three pillows above heart level. Able to move digits, sensation is at baseline. Procedures Date of Service Date of Service: 01/15/25 Progress Note: A&P Assessment and plan (1) Trimalleolar fracture of left ankle: Status: Acute Plan Continue pain mgmnt NWB LLE Dispo planning-Pain management, planning for operative fixation left ankle Time Spent With Patient Time: Total time managing care of this patient today ____ minutes. Quality Stroke Does the patient have a stroke diagnosis?: No VTE Prior VTE?: No VTE Risk Level:: Medical - moderate - high VTE Device Contraindication: N/A - Device Ordered VTE Drug Contraindication: N/A - Med Ordered
[2025-01-15 07:34] VITALS: BP 105/72; PULSE 62; RESP 18; TEMP 36.6; O2SAT 100
--- NOTE | 2025-01-15 10:29 | HO.POSTANES ---
Post Anesthesia Evaluation Post Anesthesia Evaluation Date of Service: 01/15/25 Vital Signs: Vital Signs Temp Pulse Resp BP Pulse Ox O2 Del Method 01/15/25 07:36 Room Air 01/15/25 07:34 97.9 F 62 18 105/72 100 Room Air 01/15/25 07:33 Room Air 01/15/25 03:12 98.1 F 59 16 102/63 98 Room Air 01/14/25 23:19 98.0 F 57 16 107/65 97 Room Air Anesthesia: General LMA Mental Status: Awake Pain Control: Satisfactory Nausea/Vomiting: None Hydration: Adequate Anesthesia-Related Issues: No Anes. Related Issues
[2025-01-15 11:34] VITALS: BP 106/60; PULSE 75; RESP 16; TEMP 36; O2SAT 97
[2025-01-15 15:08] VITALS: BP 133/65; PULSE 77; RESP 20; TEMP 36.2; O2SAT 98
[2025-01-15] MEDS: oxyCODONE HCl Immed Release 5 MG TABLET 10 MG PO ×3 (15:45→23:51)
[2025-01-15] MEDS: HYDROmorphone HCl 0.5 MG/0.5 ML SYRINGE IVPUSH ×2 (17:10→21:13)
[2025-01-15] MEDS: Enoxaparin Sodium 40 MG/0.4 ML SYRINGE SUBCUT (17:13)
[2025-01-15 19:15] VITALS: BP 137/62; PULSE 72; RESP 20; TEMP 36.2; O2SAT 98
[2025-01-15 23:15] VITALS: BP 109/72; PULSE 68; RESP 16; TEMP 36.6; O2SAT 97
[2025-01-16] MEDS: HYDROmorphone HCl 0.5 MG/0.5 ML SYRINGE IVPUSH ×6 (01:16→21:44)
[2025-01-16 03:30] VITALS: BP 116/65; PULSE 68; RESP 16; TEMP 36.1; O2SAT 97
[2025-01-16] MEDS: oxyCODONE HCl Immed Release 5 MG TABLET 10 MG PO ×5 (03:50→20:24)
[2025-01-16 07:39] VITALS: BP 116/79; PULSE 65; RESP 18; TEMP 36.5; O2SAT 99
[2025-01-16] MEDS: Docusate Sodium 100 MG CAPSULE PO ×2 (08:03→20:24)
[2025-01-16] MEDS: Gabapentin 300 MG CAPSULE PO ×3 (08:03→20:23)
[2025-01-16] MEDS: Celecoxib 200 MG CAPSULE PO ×2 (08:03→20:24)
--- NOTE | 2025-01-16 08:46 | PM.PNORT ---
Subjective Subjective Date of Service: 01/16/25 Interval history: POD2 s/p left ankle closed reduction Patient is resting in bed comfortably No overnight events Pain is managed No additional complaints Physical Exam Vital Signs: Vital Signs: Last Vital Signs Temp 97.7 F 01/16/25 07:39 Pulse 65 01/16/25 07:39 Resp 18 01/16/25 07:39 BP 116/79 01/16/25 07:39 Pulse Ox 99 01/16/25 07:39 O2 Del Method Room Air 01/16/25 07:39 BMI result Body Mass Index 33.7 Const: General: cooperative, healthy appearing and no acute distress Resp: Effort & Inspection: normal respiratory effort and able to speak in complete sentences Cardio: Rate: regular rate Peripheral pulses: Peripheral pulses 2+ throughout GI: Palpation (GI): Soft to palpation Skin: Lesions: no lesions Rashes: no rashes Extrem: Other: LLE in splint, elevated on three pillows above heart level. Skin intact with fracture blister over the anterior aspect of the tibia. Able to move digits, sensation is at baseline. Procedures Date of Service Date of Service: 01/16/25 Progress Note: A&P Assessment and plan (1) Trimalleolar fracture of left ankle: Status: Acute Plan Continue pain mgmnt NWB LLE Strict elevation on three pillows above the heart level Keep splint c/d/i Repeat x-ray Possible OR tomorrow Dispo planning-Pain management, planning for operative fixation left ankle Time Spent With Patient Time: Total time managing care of this patient today ____ minutes. Quality Stroke Does the patient have a stroke diagnosis?: No VTE Prior VTE?: No VTE Risk Level:: Medical - moderate - high VTE Device Contraindication: N/A - Device Ordered VTE Drug Contraindication: N/A - Med Ordered
[2025-01-16 11:53] VITALS: BP 106/64; PULSE 74; RESP 18; TEMP 36.8; O2SAT 99
[2025-01-16 15:15] VITALS: BP 108/60; PULSE 76; RESP 14; TEMP 36.7; O2SAT 99
[2025-01-16 19:17] VITALS: BP 117/69; PULSE 94; RESP 18; TEMP 36.3; O2SAT 98
[2025-01-16 23:52] VITALS: BP 103/59; PULSE 77; RESP 18; TEMP 36.2; O2SAT 97
[2025-01-17] VITALS (11 sets, daily range): BP systolic 90–122; BP diastolic 59–74; PULSE 70–102; RESP 15–19; TEMP 36–37.2; O2SAT 94–99
[2025-01-17] MEDS: oxyCODONE HCl Immed Release 5 MG TABLET 10 MG PO ×5 (00:44→20:22)
[2025-01-17] MEDS: HYDROmorphone HCl 0.5 MG/0.5 ML SYRINGE IVPUSH ×6 (02:10→22:10)
[2025-01-17] MEDS: Gabapentin 300 MG CAPSULE PO ×2 (09:23→20:23)
--- NOTE | 2025-01-17 14:57 | MHC.CM.PN ---
pt ortho not dicussed in rounds dc plan [facility]an[facility] home n/s
--- NOTE | 2025-01-17 15:10 | P.CONAN_ITS ---
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 MDD (major depressive disorder) Opioid use disorder 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 Substance abuse Family History Family History Brother Substance use disorder Paternal Aunt Substance use disorder Maternal Aunt Substance use disorder Family history of problems with anesthesia: No Surgical History Surgical History (Updated 01/17/25 @ 14:55 by Kathryn Rider RN) History of surgery on lower extremity [place] teeth removed History of fasciotomy Status post incision and drainage History of Problems with Anesthesia: No Social History Social History Household Members: Family Household Members Other:: Parents, siblings, son Housing: House Are you a primary daycare provider to a significant other at home: No Do you presently have visiting nurse or other home services: No Unable to assess alcohol history related to: Unknown Alcohol intake: former Patient Tobacco Use Status: Current everyday Tobacco user Tobacco use type: Cigarette Cigarettes Per Day: 4 Years Smoked: 20 e-Cigarette/Vaping Use: Never Used Substance Use Type: Marijuana service: No Current occupational status: unemployed Cognitive needs: No Hearing needs: No Vision needs: Yes Meds Allergies Allergy/AdvReac Type Severity Reaction Status Date / Time No Known Allergies Allergy Verified 01/17/25 14:55 Active Medications: Current Medications Celecoxib (Celecoxib 200 Mg Capsule) 200 mg PO BID [facility] Last Admin: 01/17/25 09:20 Dose: Not Given Docusate Sodium (Docusate Sodium 100 Mg Capsule) 100 mg PO BID [facility] Last Admin: 01/17/25 09:19 Dose: Not Given Enoxaparin Sodium (Enoxaparin Sodium 40 Mg/0.4 Ml Syringe) 40 mg SUBCUT Q24H [facility] Last Admin: 01/16/25 15:32 Dose: Not Given Gabapentin (Gabapentin 300 Mg Capsule) 300 mg PO TID [facility] Last Admin: 01/17/25 15:04 Dose: Not Given Hydromorphone HCl (Hydromorphone Hcl 0.5 Mg/0.5 Ml Syringe) 0.5 mg IVPUSH Q4H PRN; Protocol PRN Reason: Pain, Moderate(Pain Scale 4-6) Last Admin: 01/17/25 10:42 Dose: 0.5 mg Cefazolin Sodium/Dextrose (Ancef) 2 gm in 50 mls @ 100 mls/hr IV PREOP ONE Stop: 01/17/25 15:37 Ondansetron HCl (Ondansetron Hcl 4 Mg/2 Ml Vial) 4 mg IVPUSH Q8H PRN PRN Reason: Nausea and Vomiting Oxycodone HCl (Oxycodone Hcl Immed Release 5 Mg Tablet) 10 mg PO Q4H PRN PRN Reason: Pain, Moderate(Pain Scale 4-6) Last Admin: 01/17/25 13:30 Dose: 10 mg Exam Exam Date and Time: 01/17/25 1510 Height,Weight and Vital Signs: Height 5 ft 3 in Weight 86.2 kg Last Vital Signs Temp 98.9 F 01/17/25 15:02 Pulse 80 01/17/25 15:02 Resp 16 01/17/25 15:02 BP 108/64 01/17/25 15:02 Pulse Ox 98 01/17/25 15:02 O2 Del Method Room Air 01/17/25 15:02 Pertinent Lab Results Pertinent Lab Results: Laboratory Tests 01/13/25 17:40 Urine Test NEGATIVE Urine Opiates Screen POSITIVE H Ur Buprenorphine Scrn Not Detected Ur Oxycodone Screen Positive H Urine Methadone Screen Not Detected Urine Fentanyl Screen Not Detected Ur Barbiturates Screen Not Detected Ur Phencyclidine Scrn Not Detected Ur Amphetamines Screen Not Detected U Benzodiazepines Scrn Not Detected Urine Cocaine Screen Not Detected U Marijuana (THC) Screen POSITIVE H Airway Mallampati Class: II TM Dist: >3cm Neck ROM: Full Loose/Missing/Broken Teeth: No (patient denies any loose or broken teeth) Heart: S1S2 Lungs: CTAB Assessment and Plan Assessment Anesthesia Assessment: Anesthesia Plan Discussed and Chart Reviewed Final Anesthetic Review Family History of Problems with Anesthesia: No History of Problems with Anesthesia: No NPO: Yes ASA Class: III Final Preanesthetic Review: No Changes in Pt Med Stat, Meds/Allgs Chart Reviewed, Consent Obtained/Reviewed and Anes Risks/Benef Reviewed Patient Risk: Intermediate Procedure Risk: Intermediate Anesthetic Plan Anesthetic Plan: GA and Agree w/ Assess. and Plan Disposition: Standard PACU
--- NOTE | 2025-01-17 15:45 | MHC.SHP ---
Pre-Procedural Eval Section A - 24 Hr Update-Section A only Date of Service: 01/17/25 The patient is an INPATIENT: Yes Changes since office visit: No Cold of Flu in the past 2 weeks, No New Medical Problems, No Changes in Medication and No Patient answered all questions The patient has been examined within 24 hours of the surgical procedure. The History & Physical has been completed within 30 days and I have reviewed it.: Yes Section B - Complete if H&P > 30 days Chief Complaint: L ankle fracture Allergies: Allergies Allergy/AdvReac Type Severity Reaction Status Date / Time No Known Allergies Allergy Verified 01/17/25 14:55 Plan I have reviewed the history and physical and performed a pertinent physical examination on my patient. No changes have occurred unless specified. Time Spent With Patient Time: Total time managing care of this patient today ____ minutes.
[2025-01-17] MEDS: ceFAZolin Sodium/Dextrose,Iso 2 GM/50 ML PIGGYBACK IV (16:20)
--- NOTE | 2025-01-17 18:14 | P.BOP_ITS ---
Brief Operative Note Date of Service: 01/17/25 Pre-op diagnosis: Left ankle fx Post-op diagnosis: same Procedure: Left ankle ORIF Implants: [place] lateral locking plate and 2 4.0 cannulated cancellous screws medially Surgeon: Devang Long MD Anesthesia: GETA and local Was an Command And Control Officer used for this Procedure?: Yes Command And Control Officer: Zackary Galvez Estimated blood loss (mL): 25 Tourniquet time (min): 75 IV fluids (mL): 1,000 Pathology: none sent Condition: stable Disposition: PACU
[2025-01-17] MEDS: Celecoxib 200 MG CAPSULE PO (20:22)
[2025-01-17] MEDS: Docusate Sodium 100 MG CAPSULE PO (20:22)
[2025-01-17] MEDS: Acetaminophen 1,000 MG/100 ML PIGGYBACK 400 MG IV (23:17)
[2025-01-18] VITALS (7 sets, daily range): BP systolic 96–119; BP diastolic 55–71; PULSE 61–82; RESP 16–20; TEMP 36–37.1; O2SAT 95–98
[2025-01-18] MEDS: oxyCODONE HCl Immed Release 5 MG TABLET 10 MG PO ×6 (00:37→22:10)
[2025-01-18] MEDS: HYDROmorphone HCl 0.5 MG/0.5 ML SYRINGE IVPUSH ×6 (02:21→22:56)
[2025-01-18] MEDS: Acetaminophen 1,000 MG/100 ML PIGGYBACK 400 MG IV ×3 (04:50→17:35)
[2025-01-18] MEDS: Gabapentin 300 MG CAPSULE PO ×3 (07:43→22:09)
[2025-01-18] MEDS: Celecoxib 200 MG CAPSULE PO ×2 (07:43→22:10)
[2025-01-18] MEDS: Docusate Sodium 100 MG CAPSULE PO ×2 (07:43→22:09)
--- NOTE | 2025-01-18 09:57 | PM.PNORT ---
Subjective Subjective Date of Service: 01/18/25 Interval history: Postop day 1 status post ORIF of left ankle Patient resting comfortably in bed this morning Ankle elevated on 3 pillows above heart level Pain well managed No acute events overnight No other acute complaints or concerns at this time Physical Exam Vital Signs: Vital Signs: Last Vital Signs Temp 97.8 F 01/18/25 07:50 Pulse 61 01/18/25 07:50 Resp 16 01/18/25 07:50 BP 101/63 01/18/25 07:50 Pulse Ox 96 01/18/25 07:50 O2 Del Method Room Air 01/18/25 07:50 O2 Flow Rate 2 01/17/25 19:47 BMI result Body Mass Index 33.7 Extrem: Other: Splint on left ankle clean, dry, intact No evidence of surrounding erythema, ecchymosis No evidence of infection Patient is able to flex and extend the digits of the left foot without difficulty Compartments soft, nontender Distal sensation intact Capillary refill brisk Procedures Date of Service Date of Service: 01/18/25 Progress Note: A&P Assessment and plan (1) Trimalleolar fracture of left ankle: Status: Acute Assessment and Plan: 1. Status post ORIF of left ankle Continue pain management Begin Lovenox for DVT prophylaxis PT/OT eval pending Continue strict 3 pillow elevation of the left ankle Nonweightbearing on left lower extremity Dispo planning-PT/OT eval, pain management Time Spent With Patient Time: Total time managing care of this patient today ____ minutes. Quality Stroke Does the patient have a stroke diagnosis?: No VTE Prior VTE?: No VTE Risk Level:: Medical - moderate - high VTE Device Contraindication: N/A - Device Ordered VTE Drug Contraindication: N/A - Med Ordered
[2025-01-18] MEDS: Milk of Magnesia 30 ML ORAL.SUSP PO (10:43)
--- NOTE | 2025-01-18 13:15 | HO.POSTANES ---
Post Anesthesia Evaluation Post Anesthesia Evaluation Date of Service: 01/18/25 Vital Signs: Vital Signs Temp Pulse Resp BP Pulse Ox O2 Del Method 01/18/25 11:59 96.8 F 61 16 101/55 L 96 Room Air 01/18/25 07:50 97.8 F 61 16 101/63 96 Room Air 01/18/25 03:08 97.4 F 62 16 101/63 95 Room Air Anesthesia: General LMA Mental Status: Awake Pain Control: Satisfactory Nausea/Vomiting: None Hydration: Adequate Anesthesia-Related Issues: No Anes. Related Issues
[2025-01-18] MEDS: Enoxaparin Sodium 40 MG/0.4 ML SYRINGE SUBCUT (17:35)
[2025-01-19] VITALS (8 sets, daily range): BP systolic 97–110; BP diastolic 58–66; PULSE 61–71; RESP 16–18; TEMP 36.2–36.9; O2SAT 97–100
[2025-01-19] MEDS: oxyCODONE HCl Immed Release 5 MG TABLET 10 MG PO ×6 (01:57→22:44)
[2025-01-19] MEDS: HYDROmorphone HCl 0.5 MG/0.5 ML SYRINGE IVPUSH ×5 (04:06→20:32)
[2025-01-19] MEDS: Gabapentin 300 MG CAPSULE PO ×3 (08:15→20:31)
[2025-01-19] MEDS: Celecoxib 200 MG CAPSULE PO ×2 (08:15→20:31)
[2025-01-19] MEDS: Docusate Sodium 100 MG CAPSULE PO ×2 (08:15→20:31)
[2025-01-19] MEDS: Milk of Magnesia 30 ML ORAL.SUSP PO (08:24)
--- NOTE | 2025-01-19 09:30 | PM.PNORT ---
Subjective Subjective Date of Service: 01/19/25 Interval history: Postop day 2 status post ORIF of left ankle Patient resting comfortably in bed this morning Ankle elevated on 3 pillows above heart level Pain fairly well managed, reports some intermittent throbbing in the ankle No acute events overnight No other acute complaints or concerns at this time Physical Exam Vital Signs: Vital Signs: Last Vital Signs Temp 97.1 F 01/19/25 07:35 Pulse 61 01/19/25 07:35 Resp 16 01/19/25 07:35 BP 100/59 L 01/19/25 07:59 Pulse Ox 100 01/19/25 07:35 O2 Del Method Room Air 01/19/25 07:35 O2 Flow Rate 2 01/17/25 19:47 BMI result Body Mass Index 33.7 Extrem: Other: Splint on left ankle clean, dry, intact No evidence of surrounding erythema, ecchymosis No evidence of infection Patient is able to flex and extend the digits of the left foot without difficulty Compartments soft, nontender Distal sensation intact Capillary refill brisk Procedures Date of Service Date of Service: 01/19/25 Progress Note: A&P Assessment and plan (1) Trimalleolar fracture of left ankle: Status: Acute Assessment and Plan: 1. Status post ORIF of left ankle Continue pain management IV Tylenol reordered Continue Lovenox for DVT prophylaxis PT/OT Continue strict 3 pillow elevation of the left ankle Nonweightbearing on left lower extremity Dispo planning-PT/OT eval, pain management Time Spent With Patient Time: Total time managing care of this patient today ____ minutes. Quality Stroke Does the patient have a stroke diagnosis?: No VTE Prior VTE?: No VTE Risk Level:: Medical - moderate - high VTE Device Contraindication: N/A - Device Ordered VTE Drug Contraindication: N/A - Med Ordered
[2025-01-19] MEDS: Acetaminophen 1,000 MG/100 ML PIGGYBACK 400 MG IV ×3 (09:37→22:48)
[2025-01-19] MEDS: Enoxaparin Sodium 40 MG/0.4 ML SYRINGE SUBCUT (16:19)
[2025-01-20] MEDS: HYDROmorphone HCl 0.5 MG/0.5 ML SYRINGE IVPUSH ×3 (00:40→09:13)
[2025-01-20] MEDS: oxyCODONE HCl Immed Release 5 MG TABLET 10 MG PO ×5 (03:41→20:21)
[2025-01-20] MEDS: Acetaminophen 1,000 MG/100 ML PIGGYBACK 400 MG IV (03:51)
[2025-01-20 03:56] VITALS: BP 113/65; PULSE 58; RESP 18; TEMP 36.4; O2SAT 99
[2025-01-20 07:20] VITALS: BP 107/63; PULSE 68; RESP 16; TEMP 36.6; O2SAT 98
[2025-01-20] MEDS: Gabapentin 300 MG CAPSULE PO ×3 (08:18→20:21)
[2025-01-20] MEDS: Celecoxib 200 MG CAPSULE PO ×2 (08:18→20:21)
[2025-01-20] MEDS: Docusate Sodium 100 MG CAPSULE PO ×2 (08:18→20:21)
--- NOTE | 2025-01-20 08:38 | PM.PNORT ---
Subjective Subjective Date of Service: 01/20/25 Interval history: Postop day 3 status post ORIF of left ankle Patient resting comfortably in bed this morning Ankle elevated on 3 pillows above heart level Pain well managed No acute events overnight No other acute complaints or concerns at this time Physical Exam Vital Signs: Vital Signs: Last Vital Signs Temp 97.8 F 01/20/25 07:20 Pulse 68 01/20/25 07:20 Resp 16 01/20/25 07:20 BP 107/63 01/20/25 07:20 Pulse Ox 98 01/20/25 07:20 O2 Del Method Room Air 01/20/25 07:20 O2 Flow Rate 2 01/17/25 19:47 BMI result Body Mass Index 33.7 Extrem: Other: Splint on left ankle clean, dry, intact No evidence of surrounding erythema, ecchymosis No evidence of infection Patient is able to flex and extend the digits of the left foot without difficulty Compartments soft, nontender Distal sensation intact Capillary refill brisk Procedures Date of Service Date of Service: 01/20/25 Progress Note: A&P Assessment and plan (1) Trimalleolar fracture of left ankle: Status: Acute Assessment and Plan: 1. Status post ORIF of left ankle Continue pain management Continue Lovenox for DVT prophylaxis PT/OT Continue strict 3 pillow elevation of the left ankle Nonweightbearing on left lower extremity Dispo planning-PT/OT eval, pain management Time Spent With Patient Time: Total time managing care of this patient today ____ minutes. Quality Stroke Does the patient have a stroke diagnosis?: No VTE Prior VTE?: No VTE Risk Level:: Medical - moderate - high VTE Device Contraindication: N/A - Device Ordered VTE Drug Contraindication: N/A - Med Ordered
[2025-01-20] MEDS: Acetaminophen 325 MG TABLET 650 MG PO ×3 (10:28→20:20)
[2025-01-20 11:26] VITALS: BP 109/69; PULSE 60; RESP 16; TEMP 36.2; O2SAT 100
--- NOTE | 2025-01-20 14:02 | MHC.CM.PN ---
per pt will dc home with family support
[2025-01-20 15:16] VITALS: BP 102/63; PULSE 76; RESP 18; TEMP 36.3; O2SAT 98
[2025-01-20] MEDS: Enoxaparin Sodium 40 MG/0.4 ML SYRINGE SUBCUT (16:38)
[2025-01-20 18:53] VITALS: BP 106/65; PULSE 78; RESP 18; TEMP 36.3; O2SAT 98
[2025-01-21] VITALS: BP 108/72; PULSE 70; RESP 16; TEMP 36; O2SAT 98
[2025-01-21] MEDS: oxyCODONE HCl Immed Release 5 MG TABLET 10 MG PO ×4 (00:23→12:45)
[2025-01-21 03:41] VITALS: BP 112/68; PULSE 76; RESP 16; TEMP 36.3; O2SAT 98
[2025-01-21] MEDS: Acetaminophen 325 MG TABLET 650 MG PO ×3 (04:47→12:45)
--- NOTE | 2025-01-21 07:18 | PM.PNORT ---
Subjective Subjective Date of Service: 01/21/25 Interval history: Postop day 4 status post ORIF of left ankle Patient resting comfortably in bed this morning Ankle elevated on 3 pillows above heart level Pain well managed No acute events overnight No other acute complaints or concerns at this time Physical Exam Vital Signs: Vital Signs: Last Vital Signs Temp 97.3 F 01/21/25 03:41 Pulse 76 01/21/25 03:41 Resp 16 01/21/25 03:41 BP 112/68 01/21/25 03:41 Pulse Ox 98 01/21/25 03:41 O2 Del Method Room Air 01/21/25 03:41 O2 Flow Rate 2 01/17/25 19:47 BMI result Body Mass Index 33.7 Extrem: Other: Splint on left ankle clean, dry, intact No evidence of surrounding erythema, ecchymosis No evidence of infection Patient is able to flex and extend the digits of the left foot without difficulty Compartments soft, nontender Distal sensation intact Capillary refill brisk Procedures Date of Service Date of Service: 01/21/25 Progress Note: A&P Assessment and plan (1) Trimalleolar fracture of left ankle: Status: Acute Assessment and Plan: 1. Status post ORIF of left ankle Continue pain management Continue Lovenox for DVT prophylaxis PT/OT Continue strict 3 pillow elevation of the left ankle Nonweightbearing on left lower extremity Dispo planning-PT/OT eval, pain management Time Spent With Patient Time: Total time managing care of this patient today ____ minutes. Quality Stroke Does the patient have a stroke diagnosis?: No VTE Prior VTE?: No VTE Risk Level:: Medical - moderate - high VTE Device Contraindication: N/A - Device Ordered VTE Drug Contraindication: N/A - Med Ordered
[2025-01-21 07:22] VITALS: BP 100/66; PULSE 71; RESP 16; TEMP 36.3; O2SAT 95
[2025-01-21] MEDS: Gabapentin 300 MG CAPSULE PO (08:39)
[2025-01-21] MEDS: Docusate Sodium 100 MG CAPSULE PO (08:40)
[2025-01-21] MEDS: Celecoxib 200 MG CAPSULE PO (08:40)
--- NOTE | 2025-01-21 11:01 | W.MHC.F2F ---
Service Date Service Date: 01/21/25 Encounter Date of encounter: 01/21/25 Reasons for Services Signs and symptoms assessed: Status post left ankle ORIF Homebound: Leaving the home is medically contraindicated at this time without the asist of a device and/or another person due th the listed conditions above and below. Reason homebound: non-weight bearing Certification: Based on the above findings, I certify that this patient is confined to the home and needs intermittent senior living care, physical therapy and/or speech therapy, or continues to need occupational therapy. The patient is under my care, and I have initiated the establishment of the plan of care. The patient will be followed by a physician who will periodically review the plan of care. Time Spent With Patient Time: Total time managing care of this patient today ____ minutes.
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
[2025-01-21 11:44] VITALS: BP 116/76; PULSE 72; RESP 16; TEMP 36.4; O2SAT 97
--- NOTE | 2025-01-21 12:26 | P.F2F_ITS ---
Service Date Service Date: 01/21/25 Encounter Date of encounter: 01/21/25 Reasons for Services Signs and symptoms assessed: Status post left ankle ORIF Reason for physical therapy: home safety and mobility and gait/transfer training Reason for occupational therapy: home safety and mobility, gait/transfer training and ADL training Homebound: Leaving the home is medically contraindicated at this time without the asist of a device and/or another person due th the listed conditions above and below. Reason homebound: non-weight bearing Certification: Based on the above findings, I certify that this patient is confined to the home and needs intermittent senior care care, physical therapy and/or speech therapy, or continues to need occupational therapy. The patient is under my care, and I have initiated the establishment of the plan of care. The patient will be followed by a physician who will periodically review the plan of care. Time Spent With Patient Time: Total time managing care of this patient today ____ minutes.
--- NOTE | 2025-01-21 13:17 | PC.NURSE ---
Pt reports comfortable doing Lovenox self injections at home once a day. verbalize understanding of procedure
--- NOTE | 2025-02-07 16:53 | W.PM.OPN ---
Operative Note Operative Note Date of Service: 01/14/25 Narrative: Date of Service: 01/14/25 Pre-op diagnosis: Trimalleolar ankle fracture, left Post-op diagnosis: same Procedure: Closed reduction left ankle Surgeon: Devang Long MD Anesthesia: MARIANNAA Was an Hot Room Attendant used for this Procedure?: Yes Hot Room Attendant: Zackary Galvez Estimated blood loss (mL): 0 Tourniquet time (min): 0 IV fluids (mL): 500 Pathology: none sent Condition: stable Disposition: PACU Patient was brought to the operating room placed supine on the operative table. A time-out was called to identify proper site and proper surgeon. Once she was fully anesthetized I reduce the bimalleolar. She had heel cord tightness because of a prior sciatic nerve injury and so the chronic tightness and plantar flexion likely lead to recurrent instability. I was however able to reduce this and a well-padded posterior splint was applied. Biplanar fluoroscopy confirmed reduction. Once the splint was applied she was awakened from anesthesia and brought to recovery room in stable condition. There were no known complications.
--- NOTE | 2025-02-07 16:56 | P.OP_ITS ---
Operative Note Operative Note Date of Service: 01/17/25 Narrative: Date of Service: 01/17/25 Pre-op diagnosis: Left ankle fx Post-op diagnosis: same Procedure: Left ankle ORIF Implants: [place] lateral locking plate and 2 4.0 cannulated cancellous screws medially Surgeon: Devang Long MD Anesthesia: GETA and local Was an Global Account Executive used for this Procedure?: Yes Global Account Executive: Zackary Galvez Estimated blood loss (mL): 25 Tourniquet time (min): 75 IV fluids (mL): 1,000 Pathology: none sent Condition: stable Disposition: PACU Indications: Once the soft tissues had improved we discussed operative treatment and she was taken the operating room to undergo ORIF for bimalleolar ankle fracture. Procedure in detail: Procedure in detail: Patient was brought to the operating room and placed supine on the operative table. All bony prominences were well padded and a time-out was called to identify proper site proper procedure proper surgeon. IV antibiotics per weight were administered. I began by exsanguinating limb is slightly tourniquet to 300 mm Hg. I then made a standard posterolateral incision over the fibula. Full- thickness flaps were taken down to the fibular shaft and distal fibula. The fracture was identified and cleaned with a combination of curette, rongeur and irrigation. The bone quality was surprisingly poor. This is likely given her neurologic issue and chronic weakness on this limb. Regardless of the etiology it made for bone of poor quality. A lobster claw was used to provisionally reduce the fracture and a 6 hole distal fibular locking plate was applied using standard AO technique. Multiple distal locking screws were applied and 8 delmi ices proximal to the fracture were obtained. Biplanar fluoroscopy was used to confirm hardware position and fracture reduction. Once I was satisfied that both of these were acceptable I irrigated copiously and turned my attention to the medial side. The transverse medial malleolar fracture was identified after skin incision. Full-thickness skin flaps were developed and, With a sharp tenaculum, the fracture was reduced. 2 threaded K-wires were then placed from distal to proximal and perpendicular to the fracture. Biplanar fluoroscopy was used to confirm positioning and then they were overdrilled and 2 40 mm 4.0 partially- threaded cannulated cancellous screws were placed across the fracture. I was satisfied with the position and the fracture reduction based on biplanar fluoroscopy. This syndesmosis was tested using external rotation test and was found to be stable. Therefore all instrumentation was removed and copious irrigation was performed. Absorbable suture and jaz were used for closure and the patient was placed into sterile dressings and a well-padded posterior splint. Tourniquet was let down and the patient was extubated brought to recovery room in stable condition there were no known complications.
== END 2025-01-21 13:20 | disposition home health service (06) | DRG 313 ==
PROVIDERS: Nurse Practitioner; Orthopaedic Surgery; Admitting Provider Physician Assistant; PCP Internal Medicine; Visit Provider Physician Assistant
PROC: 0QSHXZZ Reposition Left Tibia, External Approach (ICD-10-PCS; principal; 2025-01-14 07:30)
PROC: 0QSH04Z Reposition Left Tibia with Internal Fixation Device, Open Approach (ICD-10-PCS; principal; 2025-01-17 15:30)
DX: S82.852A Displaced trimalleolar fracture of left lower leg, initial encounter for closed fracture (principal); F17.210 Nicotine dependence, cigarettes, uncomplicated; Z71.6 Tobacco abuse counseling; Z79.899 Other long term (current) drug therapy
CPT/HCPCS: 73610; 73700; 80307; 81025; 97162; 97165; C1713; J0131; J0690; J1100; J1171; J1650; J2003; J2250; J2371; J2405; J2704; J3010; J7120

== ENCOUNTER → 2025-01-13 12:16 | Outpatient (BNV) | payer OTHER, SELFPAY | PROVIDERS: Admitting Provider Physician Assistant; PCP Internal Medicine; Visit Provider Orthopaedic Surgery | DX: S82.852A Displaced trimalleolar fracture of left lower leg, initial encounter for closed fracture (principal) | CPT/HCPCS: 27810; 27814; 99024; G0180 ==

== ENCOUNTER 2025-01-23 13:29 | Outpatient (AMB) | payer OTHER, SELFPAY ==
[2025-01-23 13:36] VITALS: BP 122/74; BMI 29.2
--- NOTE | 2025-01-23 13:36 | MHC.OFFVIS ---
Vital Signs 01/23/25 13:36 Height 5 ft 3 in Weight 165 lb BMI 29.2 BP 122/74 Intake Visit Reasons: vaginal discharge Exhaust Worker Required: No Exhaust Worker Services: Exhaust Worker Present Information Interpreted: clinical only Allergies No Known Allergies Allergy (Verified 01/23/25 13:37) Medication List - Last Reconciled 01/23/25 by Anitha Armendariz CNM acetaminophen 650 mg (2 x 325 mg) PO Q4H PRN 30 days celecoxib 200 mg PO BID 30 days docusate sodium 100 mg PO BID 30 days enoxaparin 40 mg (0.4 mL) subcut Q24H 42 days gabapentin 300 mg PO TID 30 days [Kneeling Scooter As directed] oxycodone 10 mg (2 x 5 mg) PO Q4H PRN 7 days Is last menstrual period known: Yes Last menstrual period: 01/12/25 HPI HPI vaginal discharge: Details: Patient is here is a new patient with her mother. She is in a wheelchair. Her foot is in a wrapped cast she has just had ankle surgery on Monday she broke her ankle on January 11 slipping on the ice. She spends most of her time in the wheelchair or on the couch at home in the early stages of recovery PT will be coming to her house this week.. She also has severe injuries to her left arm from a compression syndrome injury 2 years ago and she had to have multiple surgeries but the arm was saved. She still has her hand but she has not covered in a sock as she does not have complete function with it.. She has not been sexually active in the last couple of years. She gets regular periods she uses tampons. She is right-handed. She has had a vaginal discharge that has been bothering her for the last couple of months it is yellowish and she was bothered by the odor and it is itchy not all the time but at certain times of day sometimes more at night. She is bothered most by the odor and the itch.. 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 Substance abuse Surgical History History of surgery on lower extremity [place] teeth removed History of fasciotomy Status post incision and drainage Family History Brother Substance use disorder Paternal Aunt Substance use disorder Maternal Aunt Substance use disorder Social History Household Members: Family Household Members Other:: Parents, siblings, son Housing: House Are you a primary healthcare science specialist to a significant other at home: No Do you presently have visiting nurse or other home services: No Unable to assess alcohol history related to: Unknown Alcohol intake: former Patient Tobacco Use Status: Current everyday Tobacco user Tobacco use type: Cigarette Cigarettes Per Day: 4 Years Smoked: 20 e-Cigarette/Vaping Use: Never Used Substance Use Type: Marijuana service: No Current occupational status: unemployed Cognitive needs: No Hearing needs: No Vision needs: Yes Female Reproductive History Menstrual Age of Menarche: 11 Duration of menses: 3-5 days Date of last menstrual period: 01/12/25 control method: none Total pregnancies: 2 Full term: 1 Date of last pap smear: 12/10/22 (abn.pap) History of abnormal pap smear: Yes Physical Exam Vital Signs: Last Vital Signs BP 122/74 01/23/25 13:36 BMI result Body Mass Index 29.2 Const Other: Patient has obvious extensive scarring and somewhat limited function of left hand and arm from compartment syndrome and multiple surgeries. Patient is using wheelchair her left leg is in soft wrapped cast and she is status post ankle surgery 6 days ago at [facility]. Other: Vulva is slightly reddened vagina pink and moist there is normal appearing whitish discharge there is slight bubbliness to it --masking prohibits assessment of odor. Full visualization of cervix somewhat limited today.. Assessment & Plan Assessment & Plan (1) Vaginal odor: Code(s): N89.8 - Other specified noninflammatory disorders of vagina Category: Medical (2) Vaginal itching: Code(s): N89.8 - Other specified noninflammatory disorders of vagina Category: Medical (3) Hx of abnormal cervical Pap smear: Code(s): Z87.42 - Personal history of other diseases of the female genital tract Category: Medical Plan Discussed the challenges being bed/count/wheelchair-bound and current inability to shower discussed ways to rinse using a make shift ramos bottle. Suggested treating the 2 symptoms that are both bothersome to her will treat as if it is BV and yeast concurrently. Since she is dependent on help of her mother and family at this time and she is out I will order a prescription for metronidazole tablets which she can take for in case it is BV and vaginal yeast cream that she can in case it is yeast and that maybe soothing for the itch in any case. Suggest just cool water rinsing which maybe beneficial as well discussed that the challenge of not being able to shower and not allow air to her vulva as normally as she would probably is contributing to this. She also may have received antibiotics intraoperatively. We will see what else shows up in testing if anything She will be scheduled for an annual exam with Pap smear because of her history of abnormal address else at that as well.. Medications: New miconazole nitrate 2% (Miconazole-7) 1 appful vaginal BEDTIME 7 days 45 grams 2RF metronidazole 500 mg PO Q12H 14 tabs 0RF Coding Level of Care Code New Pt Level 3 (72716) Diagnoses Vaginal odor N89.8 Vaginal itching N89.8 Hx of abnormal cervical Pap smear Z87.42
--- OUTSIDE RECORDS SUMMARY | 2025-01-23 17:05 | XMS_ITS | Referral Summary ---
Author Organization [facility] Address [address] [place] [address] Care Team Providers Care Prosthetic Makeup Designer Name Role Phone Vivian Skinner MD Primary Care Provider Encounters Date Type Department Care Team Description 01/22/2025 Telephone [facility] Upper Extremity [address] [address] Telephone Intake, Staff PAC Surgery/procedure Scheduling [facility] 01/10/2025 Prep for Case [facility] Upper Extrem[facility] [address] [address] Ovidio Thornton MD Contracture of left hand (Primary Dx) 12/17/2024 Telephone [facility] [address] [address] Telephone Intake, Staff PAC Surgery/procedure Scheduling-Dibened to 12/10/2024 9:45 AM EST Follow-Up [facility] Upper Extrem[facility] [address] [address] Ovidio Thornton MD Compression neuropathy of upper extremity, left (Primary Dx) 12/10/2024 8:45 AM EST Procedure visit [facility] Upper Extremity [address] [address] Ovidio Thornton MD Williams, Faren H., MD Compression neuropathy of upper extremity, left (Primary Dx); Contracture of left hand from Last 3 Months Allergies No known [...] 2023 6:36 AM EDT Plan of Treatment Scheduled Procedures Name Priority Associated Diagnoses Date/Ti me RELEASE, INTRINSIC MUSCLES O F HAND, EACH MUSCLE Contracture of left hand TENDON TRANSPLANTATION OR TR ANSFER, FLEXOR OR EXTENSOR, FOREARM AND/OR WRIST, EACH TENDON Contracture of left hand Procedures * Due to [place] [employer] law, this organization might not be sharing negative HIV tests. Procedure Name Priority Date/Time Associated Diagnosis Comments MT NEEDLE EMG EA EXTREMTY W/PARASPINL AREA COMPLETE Routine 12/10/2024 9:51 AM EST Compression neuropathy of upper extremity, left MT MOTOR &/SENS 13/> NRV CNDJ PRECONF ELTRODE LIMB Routine 12/10/2024 9:51 AM EST Compression neuropathy of upper extremity, left from Last 3 Months Results * Due to [place] [employer] law, this organization might not be sharing negative HIV tests. * MT MOTOR &/SENS 13/> NRV CNDJ PRECONF ELTRODE LIMB, MT NEEDLE EMG EA EXTREMTY W/PARASPINL AREA COMPLETE (12/10/2024 9:51 AM EST) Narrative Venkatesh Chaidez MD - 12/10/2024 9:51 AM EST Venkatesh Chaidez MD ? 12/10/2024 12:27 PM Physiatry EMG/NCS Authorized by: Venkatesh Chaidez MD ?? Performed by: Venkatesh Chaidez MD us Venkatesh Chaidez MD IN CLINIC/BEDSIDE ORDERABLE S Final Result from Last 3 Months Insurance [employer] Care Teams Prosthetic Makeup Designer Relationship Specialty Start Date End Date Vivian Skinner MD [address] [place] [address] PCP - General Internal Medicine 08/13/24
--- OUTSIDE RECORDS SUMMARY | 2025-01-23 17:05 | XMS_ITS | Encounter Summary ---
Author Organization [facility] Address [address] [place] [address] Care Team Providers Care Aquatic Instructor Name Role Phone Vivian Skinner MD Primary Care Provider Encounter Details Date Type Department Care Team (Late st Contact Info) Description 01/10/2025 Prep for Case [facility] [address] [place] [id number] Ovidio Thornton MD [address] [place] [phone] Contracture of left hand (Primary Dx) Social [...] as of this encounter Plan of Treatment Scheduled Procedures Name Priority Associated Diagnoses Date/Ti me RELEASE, INTRINSIC MUSCLES O F HAND, EACH MUSCLE Contracture of left hand TENDON TRANSPLANTATION OR TR ANSFER, FLEXOR OR EXTENSOR, FOREARM AND/OR WRIST, EACH TENDON Contracture of left hand documented as of this encounter Visit Diagnoses Diagnosis Contracture of left hand- Primary documented in this encounter Care Teams Aquatic Instructor Relationship Specialty Start Date End Date Vivian Skinner MD [address] [facility] [place] [address] PCP - General Internal Medicine 08/13/24 documented as of this encounter
--- OUTSIDE RECORDS SUMMARY | 2025-01-23 17:05 | XMS_ITS | Encounter Summary ---
Author Organization [facility] Address [address] [place] [address] Care Team Providers Care Cane Piler Name Role Phone Vivian Skinner MD Primary Care Provider Reason for Visit * Reason Onset Date Comments PAC Surgery/procedure Scheduling [facility] 10/2025 Encounter Details Date Type Department Care Team (Late st Contact Info) Description 01/22/2025 Telephone [facility] [address] [place] [phone] Telephone Intake, Staff PAC Surgery/procedure Scheduling [facility] Social History Tobacco Use Types Packs/Day Years [...] encounter Miscellaneous Notes * Telephone Encounter - Brenda Morrison - 01/22/2025 10:12 AM EDT [facility] Patient has surgery scheduled on 02/10/25, patient recently fractured her ankle. Can she still have the surgery with that injury? Please call patient at [phone] Thank you documented in this encounter Plan of Treatment Scheduled Procedures Name Priority Associated Diagnoses Date/Ti me RELEASE, INTRINSIC MUSCLES O F HAND, EACH MUSCLE Contracture of left hand TENDON TRANSPLANTATION OR TR ANSFER, FLEXOR OR EXTENSOR, FOREARM AND/OR WRIST, EACH TENDON Contracture of left hand documented as of this encounter Visit Diagnoses Not on filedocumented in this encounter Care Teams Cane Piler Relationship Specialty Start Date End Date Vivian Skinner MD [address] [place] [address] PCP - General Internal Medicine 08/13/24 documented as of this encounter
--- OUTSIDE RECORDS SUMMARY | 2025-01-23 17:05 | XMS_ITS | Clinical Summary ---
Author Organization [facility] Address [address] [place] [address] Care Team Providers Care Education Program Manager Name Role Phone Vivian Skinner MD Primary Care Provider Allergies No known active allergies Medications No known medications Active Problems Problem Noted Date Diagnosed Date Contracture of left hand 01/10/2025 Encounters Date Type Department Care Team Description 01/22/2025 Telephone [facility] Hand and Upper Extremity [address] [address] Telephone Intake, Staff PAC Surgery/procedure Scheduling Norberto 01/10/2025 Prep for Case [facility]remity [facility] [address] [place] [id number] Ovidio Thornton MD Contracture of left hand (Primary Dx) 12/17/2024 Telephone [facility] [address] [place] [phone] Telephone Intake, Staff PAC [facility] 12/10/2024 9:45 AM EST Follow-Up [facility] Hand and Upper Extremity [address] [address] Ovidio Thornton MD Compression neuropathy of upper extremity, left (Primary Dx) 12/10/2024 8:45 AM EST Procedure visit [facility] [address] [place] [id number] Ovidio Thornton MD Williams, Faren H., MD Compression neuropathy of upper extremity, left (Primary Dx); Contracture of left hand from Last 3 Months Social History Tobacco [...] Procedure Name Priority Date/Time Associated Diagnosis Comments PA NEEDLE EMG EA EXTREMTY W/PARASPINL AREA COMPLETE Routine 12/10/2024 9:51 AM EST Compression neuropathy of upper extremity, left PA MOTOR &/SENS 13/> NRV CNDJ PRECONF ELTRODE LIMB Routine 12/10/2024 9:51 AM EST Compression neuropathy of upper extremity, left from Last 3 Months Results * Due to [place] state law, this organization might not be sharing negative HIV tests. * [place] MOTOR &/SENS 13/> NRV CNDJ PRECONF ELTRODE LIMB, [place] NEEDLE EMG EA EXTREMTY W/PARASPINL AREA COMPLETE (12/10/2024 9:51 AM EST) Narrative Venkatesh Chaidez MD - 12/10/2024 9:51 AM EST Venkatesh Chaidez MD ? 12/10/2024 12:27 PM Physiatry EMG/NCS Authorized by: Venkatesh Chaidez MD ?? Performed by: Venkatesh Chaidez MD us Venkatesh Chaidez MD IN CLINIC/BEDSIDE ORDERABLE S Final Result from Last 3 Months Insurance [employer] Care Teams Education Program Manager Relationship Specialty Start Date End Date Vivian Skinner MD [address] [place] [address] PCP - General Internal Medicine 08/13/24
--- OUTSIDE RECORDS SUMMARY | 2025-01-23 17:05 | XMS_ITS | Encounter Summary ---
Author Organization [facility] Address [address] [place] [address] Care Team Providers Care Shot Fireman Name Role Phone Vivian Skinner MD Primary Care Provider Reason for Visit * Reason Onset Date Comments PAC Surgery/procedure Scheduling-Norberto 02/2025 Encounter Details Date Type Department Care Team (Late st Contact Info) Description 12/17/2024 Telephone [facility] and Upper Extremity Center [address] [place] [address] Telephone Intake, Staff PAC Surgery/procedure Scheduling-Norberto Social [...] with Dr Thornton. Please call Evita at [phone] and discuss. Thank you. * Telephone Encounter - Nuzhat Nguyễn - 12/17/2024 9:02 AM EST Would like to speak to Janine to schedule surgery with Dr Thornton. Please call Evita at [phone] documented in this encounter Plan of Treatment Scheduled Procedures Name Priority Associated Diagnoses Date/Ti me RELEASE, INTRINSIC MUSCLES O F HAND, EACH MUSCLE Contracture of left hand TENDON TRANSPLANTATION OR TR ANSFER, FLEXOR OR EXTENSOR, FOREARM AND/OR WRIST, EACH TENDON Contracture of left hand documented as of this encounter Visit Diagnoses Not on filedocumented in this encounter Care Teams Shot Fireman Relationship Specialty Start Date End Date Vivian Skinner MD [address] [place] [address] PCP - General Internal Medicine 08/13/24 documented as of this encounter
== END 2025-01-23 14:49 | disposition home or self-care (01) ==
LOC: HO.HWSM 13:30
PROVIDERS: PCP Internal Medicine; Visit Provider Advanced Practice Midwife
DX: N89.8 Other specified noninflammatory disorders of vagina (principal); Z87.42 Personal history of other diseases of the female genital tract
CPT/HCPCS: 99203

== ENCOUNTER 2025-01-23 13:29 | Outpatient (REF) | payer OTHER, SELFPAY ==
--- OUTSIDE RECORDS SUMMARY | 2025-01-23 19:09 | XMS_ITS | Encounter Summary ---
Author Organization [facility] Address [address] [place] [address] Care Team Providers Care Design Intern Name Role Phone Vivian Skinner MD Primary Care Provider Reason for Visit * Reason Onset Date Comments PAC Surgery/procedure Scheduling-Norberto 02/2025 Encounter Details Date Type Department Care Team (Late st Contact Info) Description 12/17/2024 Telephone [facility] Hand and Upper Extremity Center [address] [place] [address] Telephone Intake, Staff PAC Surgery/procedure Scheduling-Norberto Social [...] with Dr Thornton. Please call Evita at [phone] and discuss. Thank you. * Telephone Encounter - Nuzhat Nguyễn - 12/17/2024 9:02 AM EST Would like to speak to Janine to schedule surgery with Dr Thornton. Please call Evita at [phone] documented in this encounter Plan of Treatment Scheduled Procedures Name Priority Associated Diagnoses Date/Ti me RELEASE, INTRINSIC MUSCLES O F HAND, EACH MUSCLE Contracture of left hand TENDON TRANSPLANTATION OR TR ANSFER, FLEXOR OR EXTENSOR, FOREARM AND/OR WRIST, EACH TENDON Contracture of left hand documented as of this encounter Visit Diagnoses Not on filedocumented in this encounter Care Teams Design Intern Relationship Specialty Start Date End Date Vivian Skinner MD [address] [place] [address] PCP - General Internal Medicine 08/13/24 documented as of this encounter
--- OUTSIDE RECORDS SUMMARY | 2025-01-23 19:09 | XMS_ITS | Encounter Summary ---
Author Organization [facility] Address [address] [place] [address] Care Team Providers Care Costume Specialist Name Role Phone Vivian Skinner MD Primary Care Provider Reason for Visit * Reason Onset Date Comments PAC Surgery/procedure Scheduling Palomo 10/2025 Encounter Details Date Type Department Care Team (Late st Contact Info) Description 01/22/2025 Telephone [facility]rem[facility] [address] [place] [address] [id number] Telephone Intake, Staff PAC Surgery/procedure Scheduling [facility] Social History Tobacco Use Types Packs/Day Years [...] with that injury? Please call patient at [phone] Thank you documented in this encounter Plan of Treatment Scheduled Procedures Name Priority Associated Diagnoses Date/Ti me RELEASE, INTRINSIC MUSCLES O F HAND, EACH MUSCLE Contracture of left hand TENDON TRANSPLANTATION OR TR ANSFER, FLEXOR OR EXTENSOR, FOREARM AND/OR WRIST, EACH TENDON Contracture of left hand documented as of this encounter Visit Diagnoses Not on filedocumented in this encounter Care Teams Costume Specialist Relationship Specialty Start Date End Date Vivian Skinner MD [address] [place] [address] PCP - General Internal Medicine 08/13/24 documented as of this encounter
--- OUTSIDE RECORDS SUMMARY | 2025-01-23 19:09 | XMS_ITS | Clinical Summary ---
Author Organization [facility] Address [address] [place] [address] Care Team Providers Care Oil Lease Operator Name Role Phone Vivian Skinner MD Primary Care Provider Allergies No known active allergies Medications No known medications Active Problems Problem Noted Date Diagnosed Date Contracture of left hand 01/10/2025 Encounters Date Type Department Care Team Description 01/22/2025 Telephone [facility] Hand and Upper Extremity [address] [address] Telephone Intake, Staff PAC Surgery/procedure Scheduling Norberto 01/10/2025 Prep for Case [facility] and Upper Extremity Center [address] [place] [phone] Ovidio Thornton MD Contracture of left hand (Primary Dx) 12/17/2024 Telephone [facility] and Upper Extremity Center [address] [place] [address] Telephone Intake, Staff PAC [facility] 12/10/2024 9:45 AM EST Follow-Up [facility] Hand and Upper Extremity [address] [address] Ovidio Thornton MD Compression neuropathy of upper extremity, left (Primary Dx) 12/10/2024 8:45 AM EST Procedure visit [facility] and Upper Extremity Center [address] [place] [id number] Ovidio Thornton MD Williams, Faren H., MD [...] complete this topic Procedures * Due to [place] state law, this organization might not be sharing negative HIV tests. Procedure Name Priority Date/Time Associated Diagnosis Comments [place] NEEDLE EMG EA EXTREMTY W/PARASPINL AREA COMPLETE Routine 12/10/2024 9:51 AM EST Compression neuropathy of upper extremity, left [place] MOTOR &/SENS 13/> NRV CNDJ PRECONF ELTRODE LIMB Routine 12/10/2024 9:51 AM EST Compression neuropathy of upper extremity, left from Last 3 Months Results * Due to [place] state law, this organization might not be sharing negative HIV tests. * [place] MOTOR &/SENS 13/> NRV CNDJ PRECONF ELTRODE LIMB, [place] NEEDLE EMG EA EXTREMTY W/PARASPINL AREA COMPLETE (12/10/2024 9:51 AM EST) Narrative Venkatesh Chaidez MD - 12/10/2024 9:51 AM EST Venkatesh Chaidez MD ? 12/10/2024 12:27 PM Physiatry EMG/NCS Authorized by: Venkatesh Chaidez MD ?? Performed by: Venkatesh Chaidez MD us Venkatesh Chaidez MD IN CLINIC/BEDSIDE ORDERABLE S Final Result from Last 3 Months Insurance [employer] Care Teams Oil Lease Operator Relationship Specialty Start Date End Date Vivian Skinner MD [address] [place] [address] PCP - General Internal Medicine 08/13/24
--- OUTSIDE RECORDS SUMMARY | 2025-01-23 19:09 | XMS_ITS | Encounter Summary ---
Author Organization [facility] Address [address] [place] [address] Care Team Providers Care Telephone Installer Name Role Phone Vivian Skinner MD Primary Care Provider Encounter Details Date Type Department Care Team (Late st Contact Info) Description 01/10/2025 Prep for Case [facility] Hand and Upper Extremity Center [address] [place] [phone] Ovidio Thornton MD [address] [place] [address] Contracture of left hand (Primary Dx) Social [...] Primary documented in this encounter Care Teams Telephone Installer Relationship Specialty Start Date End Date Vivian Skinner MD [address] [facility] [place] [address] PCP - General Internal Medicine 08/13/24 documented as of this encounter
--- OUTSIDE RECORDS SUMMARY | 2025-01-23 19:10 | XMS_ITS | Referral Summary ---
Author Organization [facility] Address [address] [place] [address] Care Team Providers Care Run Lead Name Role Phone Vivian Skinner MD Primary Care Provider Encounters Date Type Department Care Team Description 01/22/2025 Telephone [facility] Hand and Upper Extremity [address] [address] Telephone Intake, Staff PAC Surgery/procedure Scheduling [facility] 01/10/2025 Prep for Case [facility] Hand and Upper Extremity [address] [address] Ovidio Thornton MD Contracture of left hand (Primary Dx) 12/17/2024 Telephone [facility] Hand and Upper Extremity [address] [address] Telephone Intake, Staff PAC Surgery/procedure Scheduling-[facility] to 12/10/2024 9:45 AM EST Follow-Up [facility] Hand and Upper Extremity [address] [address] Ovidio Thornton MD Compression neuropathy of upper extremity, left (Primary Dx) 12/10/2024 8:45 AM EST Procedure visit [facility] Hand and Upper Extremity [address] [address] Ovidio Thornton MD Williams, Faren H., MD [...] of left hand Procedures * Due to [place] [employer] law, this organization might not be sharing negative HIV tests. Procedure Name Priority Date/Time Associated Diagnosis Comments [place] NEEDLE EMG EA EXTREMTY W/PARASPINL AREA COMPLETE Routine 12/10/2024 9:51 AM EST Compression neuropathy of upper extremity, left [place] MOTOR &/SENS 13/> NRV CNDJ PRECONF ELTRODE LIMB Routine 12/10/2024 9:51 AM EST Compression neuropathy of upper extremity, left from Last 3 Months Results * Due to [place] [employer] law, this organization might not be sharing negative HIV tests. * [place] MOTOR &/SENS 13/> NRV CNDJ PRECONF ELTRODE LIMB, [place] NEEDLE EMG EA EXTREMTY W/PARASPINL AREA COMPLETE (12/10/2024 9:51 AM EST) Narrative Venkatesh Chaidez MD - 12/10/2024 9:51 AM EST Venkatesh Chaidez MD ? 12/10/2024 12:27 PM Physiatry EMG/NCS Authorized by: Venkatesh Chaidez MD ?? Performed by: Venkatesh Chaidez MD us Venkatesh Chaidez MD IN CLINIC/BEDSIDE ORDERABLE S Final Result from Last 3 Months Insurance [employer] Care Teams Run Lead Relationship Specialty Start Date End Date Vivian Skinner MD [address] [place] [address] PCP - General Internal Medicine 08/13/24
[2025-01-24 11:40] LABS: CT PCR NOT DETECTED (Not Detect.); NG PCR NOT DETECTED (Not Detect.)
[2025-01-24 11:44] LABS: Bacterial Vaginosis PCR NEGATIVE (Negative); Candida Group PCR NOT DETECTED (Not Detect); Candida glab krusei PCR NOT DETECTED (Not Detect); Trichomonas vaginalis PCR NOT DETECTED (Not Detect)
== END 2025-01-23 13:30 | disposition home or self-care (01) ==
LOC: HO.LAB 13:29
PROVIDERS: PCP Internal Medicine; Visit Provider Advanced Practice Midwife
DX: N89.8 Other specified noninflammatory disorders of vagina (principal); Z20.2 Contact with and (suspected) exposure to infections with a predominantly sexual mode of transmission; Z87.42 Personal history of other diseases of the female genital tract
CPT/HCPCS: 81515; 87491; 87591; 99202

== ENCOUNTER 2025-02-03 08:31 | Outpatient (REF) | payer OTHER, SELFPAY ==
--- NOTE | ~2025-02-03 | XR_ITS ---
EXAMINATION: XR ANKLE 3 OR MORE VIEWS LEFT HISTORY: M25.572 - Pain in left ankle and joints of left foot COMPARISON: Comparison is made with the prior examination dated 01/16/2025. FINDINGS: Three views of the left ankle are submitted. Osseous mineralization is normal. Patient is status post internal fixation of the previously seen fracture of the distal fibula with a sideplate and multiple orthopedic screws. The patient is also status post internal fixation of the previously noted medial malleolar fracture with 2 screws. A nondisplaced fracture of the posterior malleolus is also noted. The joint spaces are preserved. There is diffuse soft tissue swelling. Surgical jaz are seen in place. XR/XR ankle LT min 3V IMPRESSION: Internal fixation of the previously seen fractures of the distal fibula and medial malleolus. Electronically signed by: Alexandru Mack MD 02/04/2025 02:49 PM EDT
== END 2025-02-03 08:32 | disposition home or self-care (01) ==
LOC: HO.HOSX 08:31
PROVIDERS: Visit Provider Physician Assistant
DX: M25.572 Pain in left ankle and joints of left foot (principal); S82.852A Displaced trimalleolar fracture of left lower leg, initial encounter for closed fracture
CPT/HCPCS: 29515; 73610; 99212

== ENCOUNTER 2025-02-03 14:07 | Outpatient (AMB) | payer OTHER, SELFPAY ==
[2025-02-03 14:22] VITALS: BMI 29.2
--- NOTE | 2025-02-03 14:22 | MHC.OFFVIS ---
Vital Signs 02/03/25 14:22 Height 5 ft 3 in Weight 165 lb BMI 29.2 Intake Visit Reasons: PO-ORIF of L ankle, DOS 01/17/25 Intake Note: Evita is a 34 year old female who presents today for a post operative left ankle ORIF, DOS 01/17/25. Splint removed and x-rays updated. Patient reports that her painhas gotten better, her current pain level is a 6 out of 10. Allergies No Known Allergies Allergy (Verified 02/03/25 14:24) Medication List - Last Reconciled 02/03/25 by Zackary Galvez PA-C acetaminophen 650 mg (2 x 325 mg) PO Q4H PRN 30 days celecoxib 200 mg PO BID 30 days docusate sodium 100 mg PO BID 30 days enoxaparin 40 mg (0.4 mL) subcut Q24H 42 days gabapentin 300 mg PO TID 30 days [Kneeling Scooter As directed] metronidazole 500 mg PO Q12H miconazole nitrate 2% (Miconazole-7) 1 appful vaginal BEDTIME 7 days oxycodone 10 mg PO Q6H 7 days HPI HPI PO-ORIF of L ankle, DOS 01/17/25: Details: 34-year-old female returns to the office today status post ORIF of the left ankle on 01/17/[address] Long. She states the ankle is feeling much better and has no concerns today. 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 Substance abuse Surgical History History of surgery on lower extremity [place] teeth removed History of fasciotomy Status post incision and drainage Family History Brother Substance use disorder Paternal Aunt Substance use disorder Maternal Aunt Substance use disorder Social History Household Members: Family Household Members Other:: Parents, siblings, son Housing: House Are you a primary long term care pharmacist to a significant other at home: No Do you presently have visiting nurse or other home services: No Unable to assess alcohol history related to: Unknown Alcohol intake: former Patient Tobacco Use Status: Current everyday Tobacco user Tobacco use type: Cigarette Cigarettes Per Day: 4 Years Smoked: 20 e-Cigarette/Vaping Use: Never Used Substance Use Type: Marijuana service: No Current occupational status: unemployed Cognitive needs: No Hearing needs: No Vision needs: Yes Female Reproductive History Menstrual Age of Menarche: 11 Review of Systems Const All systems reviewed & are unremarkable except as noted in HPI and below Physical Exam Vital Signs: BMI result Body Mass Index 29.2 Extrem Other: Left ankle incision is clean dry and intact. Mild ecchymosis throughout the foot full sensation intact. Pulses present. Office Procedures Casting/Splints [id number] Leg splint application Procedure code (CPT) selection complete Results Reviewed Results Reviewed: X-rays of the left ankle obtained in the office today reviewed by me show well-aligned ankle fracture with orthopedic hardware intact. Ankle mortise intact. Assessment & Plan Assessment & Plan (1) Trimalleolar fracture of left ankle: Code(s): S82.852A - Displaced trimalleolar fracture of left lower leg, initial encounter for closed fracture Category: Medical Qualifiers: Encounter type: initial encounter Fracture type: closed Qualified Code(s): S82.852A - Displaced trimalleolar fracture of left lower leg, initial encounter for closed fracture Plan: [place] removed today Steri-Strips applied. She was placed in a well-padded posterior splint and will remain nonweightbearing. She will return in 2 weeks with splint off and reassessment potentially transitioned to a short-leg cast. Orders: Orders XR ankle LT min 3V Today M25.572 - Pain in left ankle and joints of left foot Coding Level of Care Code Global (12985) Diagnoses Closed trimalleolar fracture of left ankle, initial encounter S82.852A Encounter type: initial encounter Fracture type: closed CPT Codes Splint - CPT: 49883-[id number] Leg splint application ([id number])
== END 2025-02-03 15:20 | disposition home or self-care (01) ==
LOC: HO.HOS 14:07
PROVIDERS: PCP Internal Medicine; Visit Provider Physician Assistant
DX: S82.852A Displaced trimalleolar fracture of left lower leg, initial encounter for closed fracture (principal)
CPT/HCPCS: 29515; 99024

== ENCOUNTER → 2025-02-03 14:10 | Outpatient (BNV) | payer OTHER, SELFPAY | PROVIDERS: Visit Provider Radiology Diagnostic Radiology | DX: M25.572 Pain in left ankle and joints of left foot (principal) | CPT/HCPCS: 73610 ==

== ENCOUNTER 2025-02-17 13:25 | Outpatient (AMB) | payer OTHER, SELFPAY ==
--- NOTE | 2025-02-17 13:41 | A.OFFVIS_ITS ---
Intake Visit Reasons: PO-ORIF of L ankle, DOS 01/17/25 Intake Note: Evita is a 34 year old female who presents today for a post operative left ankle ORIF, DOS 01/17/25. Patient reports that she is doing well Allergies No Known Allergies Allergy (Verified 02/03/25 14:24) HPI HPI PO-ORIF of L ankle, DOS 01/17/25: Details: Four weeks postop here for wound check. 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 Substance abuse Surgical History History of surgery on lower extremity [place] teeth removed History of fasciotomy Status post incision and drainage Family History Brother Substance use disorder Paternal Aunt Substance use disorder Maternal Aunt Substance use disorder Social History Household Members: Family Household Members Other:: Parents, siblings, son Housing: House Are you a primary home care music therapist to a significant other at home: No Do you presently have visiting nurse or other home services: No Unable to assess alcohol history related to: Unknown Alcohol intake: former Patient Tobacco Use Status: Current everyday Tobacco user Tobacco use type: Cigarette Cigarettes Per Day: 4 Years Smoked: 20 e-Cigarette/Vaping Use: Never Used Substance Use Type: Marijuana service: No Current occupational status: unemployed Cognitive needs: No Hearing needs: No Vision needs: Yes Female Reproductive History Menstrual Age of Menarche: 11 Physical Exam Extrem Other: Medial and most of the lateral incision clean dry and intact. The proximal 2 cm of the lateral incision are notable for fibrinous material with without any depth and without discharge. Assessment & Plan Assessment & Plan (1) Trimalleolar fracture of left ankle: Code(s): S82.852A - Displaced trimalleolar fracture of left lower leg, initial encounter for closed fracture Category: Medical Qualifiers: Encounter type: initial encounter Fracture type: closed Qualified Code(s): S82.852A - Displaced trimalleolar fracture of left lower leg, initial encounter for closed fracture Plan: Left trimalleolar in the setting of neuropathy with very minimal wound healing issue proximal lateral incision. I debrided this. There is no depth. There is no evidence of infection. Went to try dry b.i.d. for 1 week and put her in a well-padded cast with the incision windowed out. Follow up 7 days. Coding Level of Care Code Global (65867) Diagnoses Closed trimalleolar fracture of left ankle, initial encounter S82.852A Encounter type: initial encounter Fracture type: closed
--- OUTSIDE RECORDS SUMMARY | 2025-02-17 15:57 | XMS_ITS | Clinical Summary ---
Author Organization [facility] Address [address] [place] [address] Care Team Providers Care Welding Equipment Repairer Supervisor Name Role Phone Vivian Skinner MD Primary Care Provider Allergies No known active allergies Medications No known medications Active Problems Problem Noted Date Diagnosed Date Contracture of left hand 01/10/2025 Encounters Date Type Department Care Team Description 01/22/2025 Telephone [facility] Hand and Upper Extremity [address] [address] Telephone Intake, Staff PAC Surgery/procedure Scheduling [place]to 01/10/2025 Prep for Case [facility] Hand and Upper Extremity Center [address] [place] [address] Ovidio Thornton MD Contracture of left hand (Primary Dx) 12/17/2024 Telephone [facility] and Upper Extremity Center [address] [place] [address] Telephone Intake, Staff PAC [facility] 12/10/2024 9:45 AM EST Follow-Up [facility] Hand and Upper Extremity [address] [address] Ovidio Thornton MD Compression neuropathy of upper extremity, left (Primary Dx) 12/10/2024 8:45 AM EST Procedure visit [facility] and Upper Extremity Center [address] [place] [address] Ovidio Thornton MD Williams, Faren H., MD [...] Vaccine ( - 2023-2 5 season) 2024 Alcohol/Substance Use Screening 11/13/2024 Depression Screening and Follow-Up 11/13/2024 Social Drivers of Health Mica ual Screening 11/13/2024 Influenza Vaccine (Season Ended) 2025 RSV Vaccine (60+ years old a nd patients) (1 - 1-dose 75+ series) 2064 Pneumococcal Vaccine: Pediat soy (0-5 Years) and At-Risk Patients (6-50 Years) Aged Out No longer eligible b ased on patient's age to complete this topic Procedures * Due to [place] state law, this organization might not be [...] 3 Months Results * Due to [place] state law, this organization might not be [...] 3 Months Insurance [employer] Care Teams Welding Equipment Repairer Supervisor Relationship Specialty Start Date End Date Vivian Skinner MD [address] [place] [address] PCP - General Internal Medicine 08/13/24
--- OUTSIDE RECORDS SUMMARY | 2025-02-17 15:57 | XMS_ITS | Referral Summary ---
Author Organization [facility] Address [address] [place] [address] Care Team Providers Care Personnel Arbitrator Name Role Phone Vivian Skinner MD Primary Care Provider Encounters Date Type Department Care Team Description 01/22/2025 Telephone [facility] Hand and Upper Extremity [address] [address] Telephone Intake, Staff PAC Surgery/procedure Scheduling [facility] 01/10/2025 Prep for Case [facility] Hand and Upper Extremity [address] [address] Ovidio Thornton MD Contracture of left hand (Primary Dx) 12/17/2024 Telephone [facility] [place] [address] Telephone Intake, Staff PAC Surgery/procedure Scheduling-Dibened to 12/10/2024 9:45 AM EST Follow-Up [facility] Hand and Upper Extremity [address] [address] Ovidio Thornton MD Compression neuropathy of upper extremity, left (Primary Dx) 12/10/2024 8:45 AM EST Procedure visit [facility] Hand and Upper Extremity [address] [address] Ovidio Thornton MD Williams, Faren H., MD [...] of left hand Procedures * Due to [place] Mr. Youth law, this organization might not be sharing negative HIV tests. Procedure Name Priority Date/Time Associated Diagnosis Comments ME NEEDLE EMG EA EXTREMTY W/PARASPINL AREA COMPLETE Routine 12/10/2024 9:51 AM EST Compression neuropathy of upper extremity, left ME MOTOR &/SENS 13/> NRV CNDJ PRECONF ELTRODE LIMB Routine 12/10/2024 9:51 AM EST Compression neuropathy of upper extremity, left from Last 3 Months Results * Due to [place] Mr. Youth law, this organization might not be sharing negative HIV tests. * ME MOTOR &/SENS 13/> NRV CNDJ PRECONF ELTRODE LIMB, ME NEEDLE EMG EA EXTREMTY W/PARASPINL AREA COMPLETE (12/10/2024 9:51 AM EST) Narrative Venkatesh Chaidez MD - 12/10/2024 9:51 AM EST Venkatesh Chaidez MD ? 12/10/2024 12:27 PM Physiatry EMG/NCS Authorized by: Venkatesh Chaidez MD ?? Performed by: Venkatesh Chaidez MD us Venkatesh Chaidez MD IN CLINIC/BEDSIDE ORDERABLE S Final Result from Last 3 Months Insurance [employer] Care Teams Personnel Arbitrator Relationship Specialty Start Date End Date Vivian Skinner MD [address] [place] [address] PCP - General Internal Medicine 08/13/24
--- OUTSIDE RECORDS SUMMARY | 2025-02-17 15:57 | XMS_ITS | Encounter Summary ---
Author Organization [facility] Address [address] [place] [address] Care Team Providers Care Corporate Affairs Manager Name Role Phone Vivian Skinner MD Primary Care Provider Reason for Visit * Reason Onset Date Comments PAC Surgery/procedure Scheduling [place] 10/2025 Encounter Details Date Type Department Care Team (Late st Contact Info) Description 01/22/2025 Telephone [facility] Hand and Upper Extremity Center [address] [place] [address] [phone] Telephone Intake, Staff PAC Surgery/procedure Scheduling [facility] Social History Tobacco Use Types Packs/Day [...] with that injury? Please call patient at [phone] Thank you documented in this encounter Plan of Treatment Scheduled Procedures Name Priority Associated Diagnoses Date/Ti me RELEASE, INTRINSIC MUSCLES O F HAND, EACH MUSCLE Contracture of left hand TENDON TRANSPLANTATION OR TR ANSFER, FLEXOR OR EXTENSOR, FOREARM AND/OR WRIST, EACH TENDON Contracture of left hand documented as of this encounter Visit Diagnoses Not on filedocumented in this encounter Care Teams Corporate Affairs Manager Relationship Specialty Start Date End Date Vivian Skinner MD [address] [place] [address] PCP - General Internal Medicine 08/13/24 documented as of this encounter
== END 2025-02-17 14:36 | disposition home or self-care (01) ==
PROVIDERS: PCP Internal Medicine; Visit Provider Orthopaedic Surgery
DX: S82.852A Displaced trimalleolar fracture of left lower leg, initial encounter for closed fracture (principal)
CPT/HCPCS: 99024

== ENCOUNTER → 2025-02-17 13:25 | Outpatient (BNVA) | payer OTHER, SELFPAY | PROVIDERS: PCP Internal Medicine; Visit Provider Physician Assistant | DX: S82.852A Displaced trimalleolar fracture of left lower leg, initial encounter for closed fracture (principal); X58.XXXA Exposure to other specified factors, initial encounter; Y93.9 Activity, unspecified; Y92.9 Unspecified place or not applicable; Y99.9 Unspecified external cause status | CPT/HCPCS: 99212 ==

== ENCOUNTER 2025-02-24 14:11 | Outpatient (AMB) | payer OTHER, SELFPAY ==
[2025-02-24 14:17] VITALS: BMI 29.2
--- NOTE | 2025-02-24 14:17 | A.OFFVIS_ITS ---
Vital Signs 02/24/25 14:17 Height 5 ft 3 in Weight 165 lb BMI 29.2 Intake Visit Reasons: PO-ORIF of L ankle, DOS 01/17/25 wound check Intake Note: Evita is a 34 year old female who presents today for a post operative wound check s/p left ankle ORIF, DOS 01/17/25. Allergies No Known Allergies Allergy (Verified 02/24/25 14:17) HPI HPI PO-ORIF of L ankle, DOS 01/17/25 wound check: Details: 34-year-old female returns to the office today status post left ankle ORIF 01/17/[address] Long. She is here today for a wound check of the left ankle. 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 Substance abuse Surgical History History of surgery on lower extremity [place] teeth removed History of fasciotomy Status post incision and drainage Family History Brother Substance use disorder Paternal Aunt Substance use disorder Maternal Aunt Substance use disorder Social History Household Members: Family Household Members Other:: Parents, siblings, son Housing: House Are you a primary manager managed care to a significant other at home: No Do you presently have visiting nurse or other home services: No Unable to assess alcohol history related to: Unknown Alcohol intake: former Patient Tobacco Use Status: Current everyday Tobacco user Tobacco use type: Cigarette Cigarettes Per Day: 4 Years Smoked: 20 e-Cigarette/Vaping Use: Never Used Substance Use Type: Marijuana service: No Current occupational status: unemployed Cognitive needs: No Hearing needs: No Vision needs: Yes Female Reproductive History Menstrual Age of Menarche: 11 Review of Systems Const All systems reviewed & are unremarkable except as noted in HPI and below Physical Exam Vital Signs: BMI result Body Mass Index 29.2 Extrem Other: Left ankle lateral incision is healing well. No drainage. Clean borders. Assessment & Plan Assessment & Plan (1) Trimalleolar fracture of left ankle: Code(s): S82.852A - Displaced trimalleolar fracture of left lower leg, initial encounter for closed fracture Category: Medical Qualifiers: Encounter type: initial encounter Fracture type: closed Qualified Code(s): S82.852A - Displaced trimalleolar fracture of left lower leg, initial encounter for closed fracture Plan: She will continue with the cast nonweightbearing I did apply a dry dressing to the incision. She will see us back in 2 weeks for re-evaluation, sooner if needed. Medications: Refilled oxycodone Partial Fill upon patient request. 10 mg PO Q6H 28 tabs 0RF Pain 7 days Coding Level of Care Code Global (19911) Diagnoses Closed trimalleolar fracture of left ankle, initial encounter S82.852A Encounter type: initial encounter Fracture type: closed
--- OUTSIDE RECORDS SUMMARY | 2025-02-24 16:32 | XMS_ITS | Encounter Summary ---
Author Organization [facility] Address [address] [place] [address] Care Team Providers Care Formstone Fitter Name Role Phone Vivian Skinner MD Primary Care Provider Reason for Visit * Reason Onset Date Comments PAC Surgery/procedure Scheduling [place] 10/2025 Encounter Details Date Type Department Care Team (Late st Contact Info) Description 01/22/2025 Telephone [facility] Hand and Upper Extremity Center [address] [place] [address] [phone] Telephone Intake, Staff PAC Surgery/procedure Scheduling [facility] Social History Tobacco Use Types Packs/Day Years [...] with that injury? Please call patient at [phone] Thank you documented in this encounter Plan of Treatment Scheduled Procedures Name Priority Associated Diagnoses Date/Ti me RELEASE, INTRINSIC MUSCLES O F HAND, EACH MUSCLE Contracture of left hand TENDON TRANSPLANTATION OR TR ANSFER, FLEXOR OR EXTENSOR, FOREARM AND/OR WRIST, EACH TENDON Contracture of left hand documented as of this encounter Visit Diagnoses Not on filedocumented in this encounter Care Teams Formstone Fitter Relationship Specialty Start Date End Date Vivian Skinner MD [address] [place] [address] PCP - General Internal Medicine 08/13/24 documented as of this encounter
--- OUTSIDE RECORDS SUMMARY | 2025-02-24 16:32 | XMS_ITS | Clinical Summary ---
Author Organization [facility] Address [address] [place] [address] Care Team Providers Care Identification Clerk Name Role Phone Vivian Skinner MD Primary Care Provider Allergies No known active allergies Medications No known medications Active Problems Problem Noted Date Diagnosed Date Contracture of left hand 01/10/2025 Encounters Date Type Department Care Team Description 01/22/2025 Telephone [facility] Hand and Upper Extremity [address] [address] Telephone Intake, Staff PAC Surgery/procedure Scheduling [facility] 01/10/2025 Prep for Case [facility] Hand and Upper Extremity Center [address] [place] [address] Ovidio Thornton MD Contracture of left hand (Primary Dx) 12/17/2024 Telephone [facility] Hand and Upper Extremity Center [address] [place] [address] Telephone Intake, Staff PAC Surgery[facility]procedure [facility] 12/10/2024 9:45 AM EST Follow-Up [facility] Hand and Upper Extremity [address] [address] Ovidio Thornton MD Compression neuropathy of upper extremity, left (Primary Dx) 12/10/2024 8:45 AM EST Procedure visit [facility] Hand and Upper Extremity Center [address] [place] [address] Ovidio Thornton MD Williams, Faren H., MD [...] complete this topic Procedures * Due to [place] state law, this organization might not be sharing negative HIV tests. Procedure Name Priority Date/Time Associated Diagnosis Comments CA NEEDLE EMG EA EXTREMTY W/PARASPINL AREA COMPLETE Routine 12/10/2024 9:51 AM EST Compression neuropathy of upper extremity, left CA MOTOR &/SENS 13/> NRV CNDJ PRECONF ELTRODE LIMB Routine 12/10/2024 9:51 AM EST Compression neuropathy of upper extremity, left from Last 3 Months Results * Due to [place] state law, this organization might not be sharing negative HIV tests. * CA MOTOR &/SENS 13/> NRV CNDJ PRECONF ELTRODE LIMB, [place] NEEDLE EMG EA EXTREMTY W/PARASPINL AREA COMPLETE (12/10/2024 9:51 AM EST) Narrative Venkatesh Chaidez MD - 12/10/2024 9:51 AM EST Venkatesh Chaidez MD ? 12/10/2024 12:27 PM Physiatry EMG/NCS Authorized by: Venkatesh Chaidez MD ?? Performed by: Venkatesh Chaidez MD us Venkatesh Chaidez MD IN CLINIC/BEDSIDE ORDERABLE S Final Result from Last 3 Months Insurance [employer] Care Teams Identification Clerk Relationship Specialty Start Date End Date Vivian Skinner MD [address] [place] [address] PCP - General Internal Medicine 08/13/24
--- OUTSIDE RECORDS SUMMARY | 2025-02-24 16:32 | XMS_ITS | Referral Summary ---
Author Organization [facility] Address [address] [place] [address] Care Team Providers Care Continuous Improvement Intern Name Role Phone Vivian Skinner MD Primary Care Provider Encounters Date Type Department Care Team Description 01/22/2025 Telephone [facility] Hand and Upper Extremity [address] [address] Telephone Intake, Staff PAC Surgery/procedure Scheduling [facility] 01/10/2025 Prep for Case [facility] Hand and Upper Extremity [address] [address] Ovidio Thornton MD Contracture of left hand (Primary Dx) 12/17/2024 Telephone [facility] Hand [place] [address] Telephone Intake, Staff PAC Surgery/procedure Scheduling-Dibened to 12/10/2024 9:45 AM EST Follow-Up [facility] Hand and Upper Extremity [address] [address] Ovidio Thornton MD Compression neuropathy of upper extremity, left (Primary Dx) 12/10/2024 8:45 AM EST Procedure visit [facility] Hand and Upper Extremity [address] [address] Ovidio Thornton MD Williams, Faren H., MD [...] of left hand Procedures * Due to [place] Dream[employer] law, this organization might not be sharing negative HIV tests. Procedure Name Priority Date/Time Associated Diagnosis Comments [place] NEEDLE EMG EA EXTREMTY W/PARASPINL AREA COMPLETE Routine 12/10/2024 9:51 AM EST Compression neuropathy of upper extremity, left IA MOTOR &/SENS 13/> NRV CNDJ PRECONF ELTRODE LIMB Routine 12/10/2024 9:51 AM EST Compression neuropathy of upper extremity, left from Last 3 Months Results * Due to [place] Dream[employer] law, this organization might not be sharing negative HIV tests. * IA MOTOR &/SENS 13/> NRV CNDJ PRECONF ELTRODE LIMB, IA NEEDLE EMG EA EXTREMTY W/PARASPINL AREA COMPLETE (12/10/2024 9:51 AM EST) Narrative Venkatesh Chaidez MD - 12/10/2024 9:51 AM EST Venkatesh Chaidez MD ? 12/10/2024 12:27 PM Physiatry EMG/NCS Authorized by: Venkatesh Chaidez MD ?? Performed by: Venkatesh Chaidez MD us Venkatesh Chaidez MD IN CLINIC/BEDSIDE ORDERABLE S Final Result from Last 3 Months Insurance [employer] Care Teams Continuous Improvement Intern Relationship Specialty Start Date End Date Vivian Skinner MD [address] [place] [address] PCP - General Internal Medicine 08/13/24
== END 2025-02-24 15:49 | disposition home or self-care (01) ==
LOC: HO.HOS 14:11
PROVIDERS: PCP Internal Medicine; Visit Provider Physician Assistant
DX: S82.852A Displaced trimalleolar fracture of left lower leg, initial encounter for closed fracture (principal)
CPT/HCPCS: 99024

== ENCOUNTER → 2025-02-24 14:11 | Outpatient (BNVA) | payer OTHER, SELFPAY | PROVIDERS: PCP Internal Medicine; Visit Provider Physician Assistant | DX: S82.852D Displaced trimalleolar fracture of left lower leg, subsequent encounter for closed fracture with routine healing (principal) | CPT/HCPCS: 99212 ==

== ENCOUNTER 2025-03-13 13:28 | Outpatient (AMB) | payer OTHER, SELFPAY ==
--- NOTE | 2025-03-13 13:32 | A.OFFVIS_ITS ---
Intake Visit Reasons: PO-ORIF of L ankle, DOS 01/17/25 wound check Intake Note: Evita is a 34 year old female who presents today for a post operative wound check s/p left ankle ORIF, DOS 01/17/25. Patient reports that she is doing well, she has some soreness and the area surrounding the wound feels a bit raw. Overal l doing well Allergies No Known Allergies Allergy (Verified 02/24/25 14:17) HPI HPI PO-ORIF of L ankle, DOS 01/17/25 wound check: Details: Seven weeks status post left ankle ORIF. Wound looks good. She has been taking care of it. No problems since last visit. 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 Substance abuse Surgical History History of surgery on lower extremity [place] teeth removed History of fasciotomy Status post incision and drainage Family History Brother Substance use disorder Paternal Aunt Substance use disorder Maternal Aunt Substance use disorder Social History Household Members: Family Household Members Other:: Parents, siblings, son Housing: House Are you a primary pharmacy customer care specialist to a significant other at home: No Do you presently have visiting nurse or other home services: No Unable to assess alcohol history related to: Unknown Alcohol intake: former Patient Tobacco Use Status: Current everyday Tobacco user Tobacco use type: Cigarette Cigarettes Per Day: 4 Years Smoked: 20 e-Cigarette/Vaping Use: Never Used Substance Use Type: Marijuana service: No Current occupational status: unemployed Cognitive needs: No Hearing needs: No Vision needs: Yes Female Reproductive History Menstrual Age of Menarche: 11 Physical Exam Extrem Other: Cast is windowed out. There is a small area of discoloration over the proximal aspect of the lateral wound. There is a nice healthy scab forming and no depth and no discharge and no erythema. Assessment & Plan Assessment & Plan (1) Trimalleolar fracture of left ankle: Code(s): S82.852A - Displaced trimalleolar fracture of left lower leg, initial encounter for closed fracture Category: Medical Qualifiers: Encounter type: initial encounter Fracture type: closed Qualified Code(s): S82.852A - Displaced trimalleolar fracture of left lower leg, initial encounter for closed fracture Plan: I doing well 7 weeks status post bimalleolar ankle fixation. Follow up 3 weeks for x-rays and cast removal. Coding Level of Care Code Global (08524) Diagnoses Closed trimalleolar fracture of left ankle, initial encounter S82.852A Encounter type: initial encounter Fracture type: closed
--- OUTSIDE RECORDS SUMMARY | 2025-03-13 15:50 | XMS_ITS | Referral Summary ---
Author Organization [facility] Address [address] [place] [address] Care Team Providers Care Aircraft Layout Worker Name Role Phone Vivian Skinner MD Primary Care Provider Encounters Date Type Department Care Team Description 01/22/2025 Telephone [facility] Upper Extremity [address] [address] Telephone Intake, Staff PAC Surgery/procedure Scheduling [facility] 01/10/2025 Prep for Case [facility] Hand and Upper Extremity [address] [address] Ovidio Thornton MD Contracture of left hand (Primary Dx) 12/17/2024 Telephone [facility] and Upper Extremity [address] [address] Telephone Intake, Staff PAC Surgery/procedure Scheduling-[place] o from Last 3 Months Allergies No known [...] WRIST, EACH TENDON Contracture of left hand Insurance [employer] Care Teams Aircraft Layout Worker Relationship Specialty Start Date End Date Vivian Skinner MD [address] [place] [address] PCP - General Internal Medicine 08/13/24
--- OUTSIDE RECORDS SUMMARY | 2025-03-13 15:50 | XMS_ITS | Clinical Summary ---
Author Organization [facility] Address [address] [place] [address] Care Team Providers Care Ruling Technician Name Role Phone Vivian Skinner MD Primary Care Provider Allergies No known active allergies Medications No known medications Active Problems Problem Noted Date Diagnosed Date Contracture of left hand 01/10/2025 Encounters Date Type Department Care Team Description 01/22/2025 Telephone [facility] Hand and Upper Extremity [address] [address] Telephone Intake, Staff PAC Surgery/procedure Scheduling [facility] 01/10/2025 Prep for Case [facility] Hand and Upper Extremity [address] [address] Ovidio Thornton MD Contracture of left hand (Primary Dx) 12/17/2024 Telephone [facility] Hand and Upper Extremity Center [address] [place] [address] Telephone Intake, Staff PAC Surgery/procedure Scheduling-Mack santoyo from Last 3 Months Social History Tobacco [...] on patient's age to complete this topic Insurance [employer] Care Teams Ruling Technician Relationship Specialty Start Date End Date Vivian Skinner MD [address] [place] [address] PCP - General Internal Medicine 08/13/24
== END 2025-03-13 13:48 | disposition home or self-care (01) ==
LOC: HO.HOS 13:29
PROVIDERS: PCP Internal Medicine; Visit Provider Orthopaedic Surgery
DX: S82.852A Displaced trimalleolar fracture of left lower leg, initial encounter for closed fracture (principal)
CPT/HCPCS: 99024

== ENCOUNTER → 2025-03-13 13:28 | Outpatient (BNVA) | payer OTHER, SELFPAY | PROVIDERS: PCP Internal Medicine; Visit Provider Orthopaedic Surgery | DX: S82.852D Displaced trimalleolar fracture of left lower leg, subsequent encounter for closed fracture with routine healing (principal); X58.XXXD Exposure to other specified factors, subsequent encounter; Z98.890 Other specified postprocedural states | CPT/HCPCS: 99212 ==

== ENCOUNTER 2025-04-03 08:20 | Outpatient (REF) | payer OTHER, SELFPAY ==
--- NOTE | ~2025-04-03 | XR_ITS ---
EXAMINATION: XR ANKLE 3 OR MORE VIEWS LEFT HISTORY: M25.579 - Pain in unspecified ankle and joints of unspecified foot COMPARISON: Comparison is made with the prior examination dated 02/03/2025. FINDINGS: Three views of the left ankle are submitted. Osseous mineralization is normal. The patient is again noted to be status post internal fixation of a fracture of the medial malleolus with 2 screws and internal fixation of a fracture of the distal fibula with a sideplate and multiple orthopedic screws. The fracture lines are less visible, consistent with healing. The joint spaces are preserved. The soft tissues are unremarkable. XR/XR ankle LT min 3V IMPRESSION: Healing internally fixed fractures of the medial malleolus and distal fibula. Electronically signed by: Alexandru Mack MD 04/03/2025 01:48 PM EDT
--- OUTSIDE RECORDS SUMMARY | 2025-04-03 08:31 | XMS_ITS | Referral Summary ---
Author Organization [facility] Address [address] [place] [address] Care Team Providers Care Patients Transporter Name Role Phone Vivian Skinner MD Primary Care Provider Encounters Date Type Department Care Team Description 01/22/2025 Telephone [facility] Upper Extremity [address] [address] Telephone Intake, Staff PAC Surgery/procedure Scheduling [facility] 01/10/2025 Prep for Case [facility] and Upper Extremity [address] [address] Ovidio Thornton MD Contracture of left hand (Primary Dx) from Last 3 Months Allergies No known [...] left hand Insurance [employer] Care Teams Patients Transporter Relationship Specialty Start Date End Date Vivian Skinner MD [address] [place] [address] PCP - General Internal Medicine 08/13/24
--- OUTSIDE RECORDS SUMMARY | 2025-04-03 08:31 | XMS_ITS | Clinical Summary ---
Author Organization [facility] Address [address] [place] [address] Care Team Providers Care Cigar Packer And Sorter Name Role Phone Vivian Skinner MD Primary Care Provider Allergies No known active allergies Medications No known medications Active Problems Problem Noted Date Diagnosed Date Contracture of left hand 01/10/2025 Encounters Date Type Department Care Team Description 01/22/2025 Telephone [facility] [address] [place] [id number] Telephone Intake, Staff PAC Surgery/procedure Scheduling Norberto 01/10/2025 Prep for Case [facility] Hand and Upper Extremity [address] [address] Ovidio Thornton MD Contracture of left hand (Primary Dx) from Last 3 Months Social History Tobacco [...] this topic Insurance [employer] Care Teams Cigar Packer And Sorter Relationship Specialty Start Date End Date Vivian Skinner MD [address] [place] [address] PCP - General Internal Medicine 08/13/24
== END 2025-04-03 08:21 | disposition home or self-care (01) ==
LOC: HO.HOSX 08:20
PROVIDERS: Visit Provider Orthopaedic Surgery
DX: M25.572 Pain in left ankle and joints of left foot (principal); S82.852A Displaced trimalleolar fracture of left lower leg, initial encounter for closed fracture; X58.XXXA Exposure to other specified factors, initial encounter
CPT/HCPCS: 73610; 99212

== ENCOUNTER 2025-04-03 11:27 | Outpatient (AMB) | payer OTHER, SELFPAY ==
[2025-04-03 11:29] VITALS: BMI 29.2
--- NOTE | 2025-04-03 11:29 | MHC.OFFVIS ---
Vital Signs 04/03/25 11:29 Height 5 ft 3 in Weight 165 lb BMI 29.2 Intake Visit Reasons: PO-ORIF of L ankle, DOS 01/17/25-3 WK follow up Intake Note: Evita is a 34 year old female who presents today for a post operative wound check s/p left ankle ORIF, DOS 01/17/25. Cast off and xrays updated today in office. Patient reports that the ankle is feeling good and has no concerns Allergies No Known Allergies Allergy (Verified 04/03/25 11:58) HPI HPI PO-ORIF of L ankle, DOS 01/17/25-3 WK follow up: Details: Evita is a 34 year old female who presents today for a post operative wound check s/p left ankle ORIF, DOS 01/17/25. Cast off and xrays updated today in office. Patient reports that the ankle is feeling good and has no concerns. 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 Substance abuse Surgical History History of surgery on lower extremity [place] teeth removed History of fasciotomy Status post incision and drainage Family History Brother Substance use disorder Paternal Aunt Substance use disorder Maternal Aunt Substance use disorder Social History Household Members: Family Household Members Other:: Parents, siblings, son Housing: House Are you a primary child care centre manager to a significant other at home: No Do you presently have visiting nurse or other home services: No Unable to assess alcohol history related to: Unknown Alcohol intake: former Patient Tobacco Use Status: Current everyday Tobacco user Tobacco use type: Cigarette Cigarettes Per Day: 4 Years Smoked: 20 e-Cigarette/Vaping Use: Never Used Substance Use Type: Marijuana service: No Current occupational status: unemployed Cognitive needs: No Hearing needs: No Vision needs: Yes Female Reproductive History Menstrual Age of Menarche: 11 Physical Exam Vital Signs: BMI result Body Mass Index 29.2 Extrem Other: 25 deg arc of motion well healed incisions Results Reviewed Results Reviewed: I personally reviewed relevant radiographs. Healing bimalleolar ankle fracture Assessment & Plan Assessment & Plan (1) Trimalleolar fracture of left ankle: Code(s): S82.852A - Displaced trimalleolar fracture of left lower leg, initial encounter for closed fracture Category: Medical Qualifiers: Encounter type: initial encounter Fracture type: closed Qualified Code(s): S82.852A - Displaced trimalleolar fracture of left lower leg, initial encounter for closed fracture Plan: Left ankle healing trimall with ipsilateral neuropathy. May WB as tolerated with a boot and follow up in 6 weeks. PT for ROM Orders: Orders XR ankle LT min 3V 04/03/25 M25.579 - Pain in unspecified ankle and joints of unspecified foot PT Evaluation and Treatment Today S82.852A - Displaced trimalleolar fracture of left lower leg, initial encounter for closed fracture Coding Level of Care Code Global (91863) Diagnoses Closed trimalleolar fracture of left ankle, initial encounter S82.852A Encounter type: initial encounter Fracture type: closed
--- OUTSIDE RECORDS SUMMARY | 2025-04-03 12:05 | XMS_ITS | Referral Summary ---
Author Organization [facility] Address [address] [place] [address] Care Team Providers Care Billing Machine Operator Name Role Phone Vivian Skinner MD Primary Care Provider Encounters Date Type Department Care Team Description 01/22/2025 Telephone [facility] Upper Extremity [address] [address] Telephone Intake, Staff PAC Surgery/procedure Scheduling Norberto 01/10/2025 Prep for Case [facility] and Upper Extremity [address] [address] Ovidio Thornton MD Contracture of left hand [...] left hand Insurance [employer] Care Teams Billing Machine Operator Relationship Specialty Start Date End Date Vivian Skinner MD [address] [place] [address] PCP - General Internal Medicine 08/13/24
--- OUTSIDE RECORDS SUMMARY | 2025-04-03 12:05 | XMS_ITS | Clinical Summary ---
Author Organization [facility] Address [address] [place] [address] Care Team Providers Care Erp Specialist Name Role Phone Vivian Skinner MD Primary Care Provider Allergies No known active allergies Medications No known medications Active Problems Problem Noted Date Diagnosed Date Contracture of left hand 01/10/2025 Encounters Date Type Department Care Team Description 01/22/2025 Telephone [facility] Hand and Upper Extremity Center [address] [place] [id number] Telephone Intake, Staff PAC Surgery/procedure Scheduling Norberto 01/10/2025 Prep for Case [facility] Hand and Upper Extremity [address] [address] Ovidio Thornton MD Contracture of left hand [...] this topic Insurance [employer] Care Teams Erp Specialist Relationship Specialty Start Date End Date Vivian Skinner MD [address] [place] [address] PCP - General Internal Medicine 08/13/24
== END 2025-04-03 12:20 | disposition home or self-care (01) ==
LOC: HO.HOS 11:28
PROVIDERS: PCP Internal Medicine; Visit Provider Orthopaedic Surgery
DX: S82.852A Displaced trimalleolar fracture of left lower leg, initial encounter for closed fracture (principal)
CPT/HCPCS: 99024

== ENCOUNTER → 2025-04-03 11:40 | Outpatient (BNV) | payer OTHER, SELFPAY | PROVIDERS: Visit Provider Radiology Diagnostic Radiology | DX: S82.52XD Displaced fracture of medial malleolus of left tibia, subsequent encounter for closed fracture with routine healing (principal); S82.832D Other fracture of upper and lower end of left fibula, subsequent encounter for closed fracture with routine healing | CPT/HCPCS: 73610 ==

== ENCOUNTER 2025-05-08 12:42 | Outpatient (AMB) | payer OTHER, SELFPAY ==
[2025-05-08 12:46] VITALS: BMI 28.9
--- NOTE | 2025-05-08 12:46 | MHC.OFFVIS ---
Vital Signs 05/08/25 12:46 Height 5 ft 3 in Weight 163 lb BMI 28.9 Intake Visit Reasons: OV- ORIF of L ankle, DOS 01/17/25 Intake Note: Evita is a 34 year old female who presents today for a follow up about 3 months s/p left ankle ORIF, DOS 01/17/25. At her last visit she was taken out of the cast and placed in boot. Referred to PT. Patient reports that she is doing well, she is wearing the boot and fully weigth bearing. She is having some discomfort with longer periods of walking. Constant numbness and tingling. Allergies No Known Allergies Allergy (Verified 04/03/25 11:58) HPI HPI OV- ORIF of L ankle, DOS 01/17/25: Details: Evita is a 34 year old female who presents today for a follow up about 3 months s/p left ankle ORIF, DOS 01/17/25. At her last visit she was taken out of the cast and placed in boot. Referred to PT. Patient reports that she is doing well, she is wearing the boot and fully weigth bearing. She is having some discomfort with longer periods of walking. Constant numbness and tingling. 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 Substance abuse Surgical History History of surgery on lower extremity [place] teeth removed History of fasciotomy Status post incision and drainage Family History Brother Substance use disorder Paternal Aunt Substance use disorder Maternal Aunt Substance use disorder Social History Household Members: Family Household Members Other:: Parents, siblings, son Housing: House Are you a primary cardiac care unit nurse to a significant other at home: No Do you presently have visiting nurse or other home services: No Unable to assess alcohol history related to: Unknown Alcohol intake: former Patient Tobacco Use Status: Current everyday Tobacco user Tobacco use type: Cigarette Cigarettes Per Day: 4 Years Smoked: 20 e-Cigarette/Vaping Use: Never Used Substance Use Type: Marijuana service: No Current occupational status: unemployed Cognitive needs: No Hearing needs: No Vision needs: Yes Female Reproductive History Menstrual Age of Menarche: 11 Physical Exam Vital Signs: BMI result Body Mass Index 28.9 Extrem Other: Incisions are clean dry and intact. There is no swelling. Mild tenderness over the lateral malleolus. Skin intact to light touch. Firing EHL/tib ant/gastrocs. Results Reviewed Results Reviewed: I personally reviewed relevant radiographs. Radiographs and alignment unchanged from prior. Healing bimalleolar ankle fracture. Assessment & Plan Assessment & Plan (1) Trimalleolar fracture of left ankle: Code(s): S82.852A - Displaced trimalleolar fracture of left lower leg, initial encounter for closed fracture Category: Medical Qualifiers: Encounter type: initial encounter Fracture type: closed Qualified Code(s): S82.852A - Displaced trimalleolar fracture of left lower leg, initial encounter for closed fracture Plan: Status post ORIF left fibula and medial malleolus. She is doing well. She still has some discomfort and I recommend that she continue weight-bearing as tolerated. She is progressing to get rid of boot but his out the area. I would like to see her back in 3 months' time. Orders: Orders XR ankle LT min 3V Today M25.579 - Pain in unspecified ankle and joints of unspecified foot Coding Level of Care Code Est Pt Level 3 (18600) Diagnoses Closed trimalleolar fracture of left ankle, initial encounter S82.852A Encounter type: initial encounter Fracture type: closed
--- OUTSIDE RECORDS SUMMARY | 2025-05-08 15:04 | XMS_ITS | Clinical Summary ---
Author Organization [facility] Address [address] [place] [address] Care Team Providers Care Assistant Site Manager Name Role Phone Vivian Skinner MD [...] this topic Insurance [employer] Care Teams Assistant Site Manager Relationship Specialty Start Date End Date Vivian Skinner MD [address] [place] [address] PCP - General Internal Medicine 08/13/24
== END 2025-05-08 13:13 | disposition home or self-care (01) ==
LOC: HO.HOS 12:42
PROVIDERS: PCP Internal Medicine; Visit Provider Orthopaedic Surgery
DX: S82.852A Displaced trimalleolar fracture of left lower leg, initial encounter for closed fracture (principal)
CPT/HCPCS: 99213

== ENCOUNTER 2025-05-08 12:42 | Outpatient (REF) | payer OTHER, SELFPAY ==
--- NOTE | ~2025-05-08 | XR_ITS ---
CLINICAL HISTORY: M25.579 - Pain in unspecified ankle and joints of unspecified foot 3 view left ankle Comparison: 04/03/2025 Findings: No acute fractures. Ankle mortise intact. Distal fibular and tibial iatrogenic findings with surgical hardware in position. No significant arthritic change or erosions. No ankle effusion. No other radiopaque foreign body. IMPRESSION: 1. No acute findings. This document has been electronically signed by: Grover Nguyen MD on 05/08/2025 23:02:31
== END 2025-05-08 12:43 | disposition home or self-care (01) ==
LOC: HO.HOSX 12:42
PROVIDERS: PCP Internal Medicine; Visit Provider Orthopaedic Surgery
DX: S82.852A Displaced trimalleolar fracture of left lower leg, initial encounter for closed fracture (principal)
CPT/HCPCS: 73610; 99212

== ENCOUNTER → 2025-05-08 12:57 | Outpatient (BNV) | payer OTHER, SELFPAY | PROVIDERS: PCP Internal Medicine; Visit Provider Specialist | DX: M25.579 Pain in unspecified ankle and joints of unspecified foot (principal) | CPT/HCPCS: 73610 ==

== ENCOUNTER 2025-06-04 10:05 | Day surgery (SDC) | payer OTHER, SELFPAY ==
--- NOTE | 2025-06-03 12:40 | HO.ANESPROP2 ---
Documented by User: Niya Eagle NP 06/03/25 12:41 HPI - Anesthesia Eval Consult details Narrative: 34 yr old female Spinal Cord Stimulation Trial On chronic opioids, last UTOX 01/2025 neg PMFSH Active Problems Active Problems: All Active Problems Hx of abnormal cervical Pap smear (Acute) Vaginal itching (Acute) Vaginal odor (Acute) Trimalleolar fracture of left ankle (Acute) 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 (Acute) Takotsubo cardiomyopathy (Acute) Peroneal neuropathy at knee (Acute) Cervical cancer screening (Acute) Reactive airway disease (Acute) Left tibial neuropathy (Acute) MDD (major depressive disorder) (Acute) Past Medical History Medical History Cervical cancer screening Reactive airway disease History of cocaine use 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 MDD (major depressive disorder) Opioid use disorder 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 Substance abuse Family History Family History Brother Substance use disorder Paternal Aunt Substance use disorder Maternal Aunt Substance use disorder Family history of problems with anesthesia: No Surgical History Surgical History History of surgery on lower extremity [place] teeth removed History of fasciotomy Status post incision and drainage History of Problems with Anesthesia: No Social History Social History Household Members: Family Household Members Other:: Parents, siblings, son Housing: House Are you a primary health care facilities inspector to a significant other at home: No Do you presently have visiting nurse or other home services: No Unable to assess alcohol history related to: Unknown Alcohol intake: former Patient Tobacco Use Status: Current everyday Tobacco user Tobacco use type: Cigarette Cigarettes Per Day: 4 Years Smoked: 20 e-Cigarette/Vaping Use: Never Used Substance Use Type: Marijuana Have you been hit, kicked, punched, or otherwise hurt by someone within the past year? If so, by whom?: No Are you DNR?: No Advance Directives: No Advance Directives Information Provided: Yes Patient : No service: No Current occupational status: unemployed Cognitive needs: No Hearing needs: No Vision needs: Yes Meds Allergies Allergy/AdvReac Type Severity Reaction Status Date / Time No Known Allergies Allergy Verified 04/03/25 11:58 Assessment and Plan Final Anesthetic Review Family History of Problems with Anesthesia: No History of Problems with Anesthesia: No Documented by User: Brenda Acosta MD 06/04/25 11:53 [facility] Past Medical History Medical History Cervical cancer screening Reactive airway disease History of cocaine use 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 MDD (major depressive disorder) Opioid use disorder 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 Substance abuse Family History Family History Brother Substance use disorder Paternal Aunt Substance use disorder Maternal Aunt Substance use disorder Surgical History Surgical History History of surgery on lower extremity [place] teeth removed History of fasciotomy Status post incision and drainage Social History Social History Household Members: Family Household Members Other:: Parents, siblings, son Housing: House Are you a primary health care facilities inspector to a significant other at home: No Do you presently have visiting nurse or other home services: No Unable to assess alcohol history related to: Unknown Alcohol intake: former Patient Tobacco Use Status: Current everyday Tobacco user Tobacco use type: Cigarette Cigarettes Per Day: 4 Years Smoked: 20 e-Cigarette/Vaping Use: Never Used Substance Use Type: Marijuana Have you been hit, kicked, punched, or otherwise hurt by someone within the past year? If so, by whom?: No Are you DNR?: No Advance Directives: No Advance Directives Information Provided: Yes Patient : No service: No Current occupational status: unemployed Cognitive needs: No Hearing needs: No Vision needs: Yes Meds Allergies Allergy/AdvReac Type Severity Reaction Status Date / Time No Known Allergies Allergy Verified 04/03/25 11:58 Exam Airway Mallampati Class: II TM Dist: >3cm Neck ROM: Full Loose/Missing/Broken Teeth: No Heart: RRR Lungs: CTA Assessment and Plan Assessment Anesthesia Assessment: Anesthesia Plan Discussed and Chart Reviewed Final Anesthetic Review NPO: Yes ASA Class: II Final Preanesthetic Review: Meds/Allgs Chart Reviewed, Consent Obtained/Reviewed and Anes Risks/Benef Reviewed Patient Risk: Low Procedure Risk: Low Anesthetic Plan Anesthetic Plan: MAC: Disposition: Standard PACU
--- NOTE | ~2025-06-04 | FL_ITS ---
EXAMINATION: FL GUIDANCE ONLY HISTORY: SPINAL CORD STIM TRIAL COMPARISON: None available. TECHNIQUE: Fluoroscopy time: 4 minutes, 51.9 seconds. Cumulative Dose: 66.690 mGy. DAP: 7.9909 mGym2 Images: 6. FINDINGS: Fluoroscopic spot films of the spine demonstrate a stimulator in place in the cervical region and a 2nd stimulator with its leads terminating at T11 level. FL/FL guidance in OR IMPRESSION: Fluoroscopy during procedure. Please see procedure report for additional information. Electronically signed by: Alexandru Mack MD 06/04/2025 03:02 PM EDT
[2025-06-04 06:40] VITALS: BMI 28.9
[2025-06-04 10:13] VITALS: BP 120/80; PULSE 77; RESP 20; TEMP 36.9; O2SAT 97; BMI 28.6
[2025-06-04] MEDS: Lactated Ringers 1,000 ML 100 ML IVCONT (10:31)
[2025-06-04 10:42] LABS: UPreg QC Valid YES
--- NOTE | 2025-06-04 12:18 | MHC.SHP ---
Pre-Procedural Eval Section A - 24 Hr Update-Section A only Date of Service: 06/04/25 The patient is an INPATIENT: No Changes since office visit: Yes Patient answered all questions The patient has been examined within 24 hours of the surgical procedure. The History & Physical has been completed within 30 days and I have reviewed it.: No Section B - Complete if H&P > 30 days Chief Complaint: Complex regional pain syndrome I,brachial plexus Relevant Family History (Specify if Yes): No Relevant Social History: None Present Medications: see Short Stay Collaborative assessment Medical History: No relevant PMH History of Previous Operations: No relevant previous surgery Allergies: Allergies Allergy/AdvReac Type Severity Reaction Status Date / Time No Known Allergies Allergy Verified 04/03/25 11:58 Review of Systems Sugical H&P ROS: Negative: Constitution, Cardiovascular and Respiratory Exam Surgical H&P Exam: Normal: HEENT, Normal: Heart and Normal: Lungs Plan Diagnosis/Plan: Unchanged I have reviewed the history and physical and performed a pertinent physical examination on my patient. No changes have occurred unless specified. Time Spent With Patient Time: Total time managing care of this patient today ____ minutes.
[2025-06-04 12:30] LABS: MRSA Nasal PCR NEGATIVE (Negative); SA Nasal PCR POSITIVE (Negative)
[2025-06-04 14:47] VITALS: BP 116/73; PULSE 78; RESP 16; TEMP 36.1; O2SAT 100
[2025-06-04 15:02] VITALS: BP 118/71; PULSE 61; RESP 16; O2SAT 99
[2025-06-04 15:17] VITALS: BP 124/73; PULSE 70; RESP 18; O2SAT 99
[2025-06-04 15:35] VITALS: TEMP 36.4
--- NOTE | 2025-06-04 15:59 | P.BOP_ITS ---
Brief Operative Note Date of Service: 06/04/25 Pre-op diagnosis: Complex Regional Pain Syndrome Post-op diagnosis: same Procedure: Spinal Cord Stimulation Trial, Cervical & Lumbar Implants: [employer] SCS Trial Leads Surgeon: Juan Haji MD Anesthesia: MAC Was an Health Education Coordinator used for this Procedure?: No Estimated blood loss (mL): 2 Pathology: none sent Condition: stable Disposition: PACU
--- NOTE | 2025-06-04 16:01 | W.PM.OPN ---
Operative Note Operative Note Date of Service: 06/04/25 Narrative: Preoperative diagnosis: CRPS, left hand and left ankle Post-operative diagnosis: same Percutaneous Spinal Cord Stimulator Trial, Cervical & Lumbar After obtaining written consent, pre-procedure blood pressure and heart rate were recorded and are in the nursing record for review. A peripheral IV was started. Antibiotics, cefazolin 2 gram, were given intraoperatively. The patient was placed in a prone position.? The patient was sedated by the anesthesiologist. The thoracolumbar area was widely prepped with ChloraPrep, allowed to dry and draped in sterile fashion. Fluoroscopy was used to identify the target interlaminar spaces and appropriate needle insertion sites. The skin and subcutaneous tissue was anesthetized with 0.5% lidocaine. A 14 gauge Tuohy epidural needle was then advanced in a left paramedian approach to the epidural space opening at T11/T12 interspace, where loss of resistance was found using air. No paresthesias were elicited with needle placement. No CSF or heme was present upon needle placement. A guide wire was then used to confirm placement into the epidural space at each level under live fluoroscopy. The 1x8 stimulator lead wire (90 cm) was then threaded to the top of C5 in the midline position. A second needle was then advanced in a left paramedian approach to the epidural space opening at L2/3 interspace, where loss of resistance was found using air. No paresthesias were elicited with needle placement. No CSF or heme was present upon needle placement. A guide wire was then used to confirm placement into the epidural space at each level under live fluoroscopy. The 1x8 stimulator lead wire (70 cm) was then threaded to the top of T11 in the midline position.? The patient was woken up and coverage was confirmed for the left hand and left ankle. The Tuohy needles were then completely removed under live fluoroscopy. The stimulator wires were then secured with steri-strips, gauze and tegaderm for skin dressing. The patient tolerated the procedure well and no complications were encountered. Following the procedure the patient's vital signs were stable. The patient was discharged home in good condition after being given discharge instructions. Time Out: Immediately prior to the procedure, the following was verbally confirmed that there is a signed consent form and that the correct patient, planned procedure, site and side are consistent with documentation and that necessary equipment and/or blood products are available prior to the start of the case. Complications: none EBL: <2 cc
== END 2025-06-04 16:01 | disposition home or self-care (01) ==
PROVIDERS: Registered Nurse Emergency; PCP Internal Medicine; Visit Provider Internal Medicine
PROC: (CPT 63650; principal; 2025-06-04 11:30)
DX: G90.522 Complex regional pain syndrome I of left lower limb (principal); G90.512 Complex regional pain syndrome I of left upper limb; G54.0 Brachial plexus disorders; Z79.899 Other long term (current) drug therapy; Z98.890 Other specified postprocedural states; F17.210 Nicotine dependence, cigarettes, uncomplicated
CPT/HCPCS: 63650 ×2; 81025; 87640; 87641; C1778; C1897; J0690; J2003; J3010

== ENCOUNTER → 2025-06-04 10:05 | Outpatient (BNV) | payer OTHER, SELFPAY | PROVIDERS: PCP Internal Medicine; Visit Provider Internal Medicine | DX: G90.512 Complex regional pain syndrome I of left upper limb (principal); G90.522 Complex regional pain syndrome I of left lower limb | CPT/HCPCS: 63650 ==

== ENCOUNTER 2025-06-13 10:36 | Outpatient (AMB) | payer OTHER, SELFPAY ==
--- NOTE | 2025-06-13 10:40 | A.OFFVIS_ITS ---
Vital Signs 06/13/25 10:41 Height 5 ft 3 in Weight 176 lb BMI 31.2 BP 132/81 Blood Pressure Location Lt brachial Position Sitting Respiration 18 Pulse 80 Pulse Oximetry (%) 98 Oxygen Delivery Method Room Air Intake Visit Reasons: S/p [employer] SCS Trial 06/04/25 Real Estate Salesperson Required: No Allergies No Known Allergies Allergy (Verified 06/13/25 10:40) HPI HPI S/p [employer] SCS Trial 06/04/25: Details: History of Present Illness The patient is a 34-year-old female presenting for follow-up after a spinal cord stimulator trial for pain management. The patient has been experiencing Complex Regional Pain Syndrome (CRPS) affecting her left hand and foot. She reports a 60% improvement in pain symptoms following the trial, with significant relief in both the hand and foot. The pain is described as nerve pain, with a sensation similar to bruising, and is less intense but still present. The spinal cord stimulator trial was initially intended for the hand, but due to circumstances, it was applied to both the hand and foot. The patient expresses a desire to target both areas in future treatments. The patient has a history of numbness in the foot prior to a fracture, which was associated with sciatic nerve issues. The numbness and pain in the foot are related to the same incident that affected her hand. Pain Description - Pain onset associated with Complex Regional Pain Syndrome (CRPS) in the left hand and foot. - Pain quality described as nerve pain with a bruising sensation. - 60% improvement in pain symptoms following spinal cord stimulator trial. - Pain is less intense but still present, affecting daily activities. Physical Exam - Lead insertion sites clean; leads removed intact Pain Management - Affect: Pain impacts daily activities but is more tolerable post-trial. - Analgesia: 60% pain relief achieved with spinal cord stimulator trial. - Activities of Daily Living: Pain is less intense, allowing for better function. 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 MDD (major depressive disorder) Opioid use disorder 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 Substance abuse Surgical History History of surgery on lower extremity [place] teeth removed History of fasciotomy Status post incision and drainage Family History Brother Substance use disorder Paternal Aunt Substance use disorder Maternal Aunt Substance use disorder Social History Household Members: Family Household Members Other:: Parents, siblings, son Housing: House Are you a primary animal care specialist to a significant other at home: No Do you presently have visiting nurse or other home services: No Unable to assess alcohol history related to: Unknown Alcohol intake: former Patient Tobacco Use Status: Current everyday Tobacco user Tobacco use type: Cigarette Cigarettes Per Day: 4 Years Smoked: 20 e-Cigarette/Vaping Use: Never Used Substance Use Type: Marijuana service: No Current occupational status: unemployed Cognitive needs: No Hearing needs: No Vision needs: Yes Female Reproductive History Menstrual Age of Menarche: 11 Physical Exam Vital Signs: Last Vital Signs Pulse 80 06/13/25 10:41 Resp 18 06/13/25 10:41 BP 132/81 06/13/25 10:41 Pulse Ox 98 06/13/25 10:41 Oxygen Delivery Method Room Air 06/13/25 10:41 BMI result Body Mass Index 31.2 Assessment & Plan Assessment & Plan (1) CRPS (complex regional pain syndrome) type I: Code(s): G90.50 - Complex regional pain syndrome I, unspecified Category: Medical Plan Plan - Proceed with SCS cervical/lumbar one lead on each site for the spinal cord stimulator to target both the left hand and foot CRPS. - Discussion of potential use of stellate ganglion and lumbar sympathetic blocks for additional pain relief as needed. Patient was informed and verbally consented to the use of an ambient scribe for clinic note documentation during this visit. Discussion Notes I discussed with the patient the option of placing one lead on each site for the spinal cord stimulator to target both the hand and foot, considering her preference for simultaneous treatment. We also talked about the potential use of sympathetic blocks for additional pain relief. Patient Instructions - Review the literature provided on spinal cord stimulator and pain management options. Coding Level of Care Code Est Pt Level 3 (54658) Diagnoses CRPS (complex regional pain syndrome) type I G90.50
[2025-06-13 10:41] VITALS: BP 132/81; PULSE 80; RESP 18; O2SAT 98; BMI 31.2
--- OUTSIDE RECORDS SUMMARY | 2025-06-13 10:45 | XMS_ITS | Clinical Summary ---
Author Organization [facility] Address [address] [place] [address] Care Team Providers Care Senior Media Director Name Role Phone Vivian Skinner MD Primary [...] 2023 6:36 AM EDT Plan of Treatment Health Maintenance Due Date Last Done Comments Cervical Cancer Screening 1989 HIV Screening 1989 HPV and Pap Smear 1989 Hepatitis C Screening 1989 Pap Smear 1989 Varicella Vaccines (1 of 2 - 13+ 2-dose series) 2002 Hepatitis B Vaccines (1 of 3 - 19+ 3-dose series) 2008 DTaP,Tdap,and Td Vaccines (1 - Tdap) 2011 COVID-19 Vaccine (2023-2 5 season) 2024 Alcohol/Substance Use Screening 11/13/2024 Depression Screening and Follow-Up 11/13/2024 Social Drivers of Health Mica ual Screening 11/13/2024 Influenza Vaccine (#1) 2025 RSV Vaccine (60+ years old a nd patients) (1 - 1-dose 75+ series) 2064 Pneumococcal Vaccine: Pediat soy (0-5 Years) and At-Risk Patients (6-50 Years) Aged Out No longer eligible b ased on patient's age to complete this topic Insurance [employer] Care Teams Senior Media Director Relationship Specialty Start Date End Date Vivian Skinner MD [address], [place] [phone] PCP - General Internal Medicine 08/13/24
== END 2025-06-13 11:29 | disposition home or self-care (01) ==
LOC: HO.PMC 10:36
PROVIDERS: PCP Internal Medicine; Visit Provider Internal Medicine
DX: G90.50 Complex regional pain syndrome I, unspecified (principal)
CPT/HCPCS: 99024

== ENCOUNTER → 2025-06-13 10:36 | Outpatient (BNVA) | payer OTHER, SELFPAY | PROVIDERS: PCP Internal Medicine; Visit Provider Internal Medicine | DX: G90.59 Complex regional pain syndrome I of other specified site (principal) | CPT/HCPCS: 99212 ==

== ENCOUNTER 2025-08-14 09:05 | Outpatient (REF) | payer OTHER, SELFPAY ==
--- NOTE | ~2025-08-14 | XR_ITS ---
EXAMINATION: XR ANKLE, LEFT CLINICAL INFORMATION: M25.579 - Pain in unspecified ankle and joints of unspecified foot COMPARISON: 04/03/2025, 02/03/2025, 01/16/2025. TECHNIQUE: AP, lateral, and mortise views of the left ankle. FINDINGS: Redemonstration of lateral plate and screw fixation of the distal fibula, and 2 medial malleolar compression screws in place. The hardware is intact, well seated, without complication evident. Previously seen fracture lines are poorly visualized indicating continued healing. The ankle mortise is intact. The talar dome is intact. The subtalar joints and calcaneus appear normal. There is a tiny dorsal calcaneal spur. There is no discrete soft tissue abnormality. XR/XR ankle LT min 3V IMPRESSION: Essentially healed internally fixated fractures of the medial and lateral malleoli. No acute finding. No hardware complication evident. Electronically signed by: Horacio Watts MD 08/14/2025 09:54 AM EDT
--- OUTSIDE RECORDS SUMMARY | 2025-08-14 09:53 | XMS_ITS | Clinical Summary ---
Author Organization [facility] Address [address] [place] [address] Care Team Providers Care Giving Officer Name Role Phone Vivian Skinner MD Primary [...] DTaP,Tdap,and Td Vaccines (1 - Tdap) 2011 Alcohol/Substance Use Screening 11/13/2024 Depression Screening and Follow-Up 11/13/2024 Social Drivers of Health Mica ual Screening 11/13/2024 COVID-19 Vaccine (1 - 2023-2 5 season) 2025 Influenza Vaccine (#1) 2025 RSV Vaccine (60+ years old a nd patients) (1 - 1-dose 75+ series) 2064 Pneumococcal Vaccine: Pediat soy (0-5 Years) and At-Risk Patients (6-50 Years) Aged Out No longer eligible b ased on patient's age to complete this topic Insurance [employer] Care Teams Giving Officer Relationship Specialty Start Date End Date Vivian Skinner MD [address], [place] [phone] PCP - General Internal Medicine 08/13/24
== END 2025-08-14 09:06 | disposition home or self-care (01) ==
LOC: HO.XRAY 09:05
PROVIDERS: Visit Provider Orthopaedic Surgery
DX: M25.572 Pain in left ankle and joints of left foot (principal); S82.852A Displaced trimalleolar fracture of left lower leg, initial encounter for closed fracture
CPT/HCPCS: 73610; 99212

== ENCOUNTER → 2025-08-14 09:09 | Outpatient (BNV) | payer OTHER, SELFPAY | PROVIDERS: Visit Provider Radiology Diagnostic Radiology | DX: M25.572 Pain in left ankle and joints of left foot (principal) | CPT/HCPCS: 73610 ==

== ENCOUNTER 2025-08-14 09:21 | Outpatient (AMB) | payer OTHER, SELFPAY ==
--- NOTE | 2025-08-14 09:25 | MHC.OFFVIS ---
Intake Visit Reasons: OV- ORIF of L ankle, DOS 01/17/25 Intake Note: Evita is a 35 year old female who presents today for a follow up of her Left Ankle about 7 months s/p Left Ankle ORIF 01/17/25. She was instructed to continue weight bearing as tolerated in a a boot. Patient reports that she is doing well, she is having pain all the time worsened with increased walking. She explains that the pain is felt on the lateral aspect of the ankle and the skin is feeling rather painful. She is experincing numbness on the bottom lateral aspect of the foot. She is doing a home exercise program and is doing rather well with ROM. She is taking Oxycodone 10mg TID & Gabapentin 300mg TID - which is helping with her symptoms Allergies No Known Allergies Allergy (Verified 06/13/25 10:40) HPI HPI OV- ORIF of L ankle, DOS 01/17/25: Details: Evita is a 35 year old female who presents today for a follow up of her Left Ankle about 7 months s/p Left Ankle ORIF 01/17/25. She was instructed to continue weight bearing as tolerated in a a boot. Patient reports that she is doing well, she is having pain all the time worsened with increased walking. She explains that the pain is felt on the lateral aspect of the ankle and the skin is feeling rather painful. She is experincing numbness on the bottom lateral aspect of the foot. She is doing a home exercise program and is doing rather well with ROM. 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 Substance abuse Surgical History History of surgery on lower extremity [place] teeth removed History of fasciotomy Status post incision and drainage Family History Brother Substance use disorder Paternal Aunt Substance use disorder Maternal Aunt Substance use disorder Social History Household Members: Family Household Members Other:: Parents, siblings, son Housing: House Are you a primary client care representative to a significant other at home: No Do you presently have visiting nurse or other home services: No Unable to assess alcohol history related to: Unknown Alcohol intake: former Patient Tobacco Use Status: Current everyday Tobacco user Tobacco use type: Cigarette Cigarettes Per Day: 4 Years Smoked: 20 e-Cigarette/Vaping Use: Never Used Substance Use Type: Marijuana service: No Current occupational status: unemployed Cognitive needs: No Hearing needs: No Vision needs: Yes Female Reproductive History Menstrual Age of Menarche: 11 Physical Exam Extrem Other: Incision clean dry and intact. She is walking comfortably. Hardware is prominent but not painful in the lateral ankle. Results Reviewed Results Reviewed: I personally reviewed relevant radiographs. Left ankle s/p ORIF. No changes in hardware position. No hardware complications. Fractures healed. Assessment & Plan Assessment & Plan (1) Trimalleolar fracture of left ankle: Code(s): S82.852A - Displaced trimalleolar fracture of left lower leg, initial encounter for closed fracture Category: Medical Qualifiers: Encounter type: initial encounter Fracture type: closed Qualified Code(s): S82.852A - Displaced trimalleolar fracture of left lower leg, initial encounter for closed fracture Plan: Doing well status post ORIF ankle. May continue weight-bearing as tolerated. Follow up if there are any changes. Orders: Orders XR ankle LT min 3V Today M25.579 - Pain in unspecified ankle and joints of unspecified foot Coding Level of Care Code Est Pt Level 3 (49987) Diagnoses Closed trimalleolar fracture of left ankle, initial encounter S82.852A Encounter type: initial encounter Fracture type: closed
== END 2025-08-14 09:44 | disposition home or self-care (01) ==
LOC: HO.HOS 09:22
PROVIDERS: PCP Internal Medicine; Visit Provider Orthopaedic Surgery
DX: S82.852D Displaced trimalleolar fracture of left lower leg, subsequent encounter for closed fracture with routine healing (principal)
CPT/HCPCS: 99213

== ENCOUNTER 2025-08-30 10:15 | Outpatient (AMB) | payer OTHER, SELFPAY ==
[2025-08-30 10:16] VITALS: BP 110/82; PULSE 69; RESP 18; TEMP 36.8; O2SAT 96; BMI 31.0
--- NOTE | 2025-08-30 10:16 | AM.OFFWIN_ITS ---
Intake Vital Signs 08/30/25 10:16 Height 5 ft 3 in Weight 175 lb BMI 31.0 BP 110/82 Blood Pressure Location Rt brachial Position Sitting Respiration 18 Pulse 69 Pulse Source Pulse Oximeter Temp 98.3 F Temp Source Oral Pulse Oximetry (%) 96 Oxygen Delivery Method Room Air Intake Visit Reasons: EP, trouble breathing, cough x4 day Intake Note: Pt is here today SOB and coughing x4days Patient Tobacco Use Status: Current everyday Tobacco user Allergies No Known Allergies Allergy (Verified 08/30/25 10:16) HPI HPI Comments History of Present Illness Details This is a 35-year-old female who presented to the walk-in clinic complaining of a cough and shortness of breath x 3 days. Patient states her cough is occasionally productive of yellow sputum but typically is dry. She states she feels short of breath with chest tightness and wheezing most of the day but this is worsened with exertion. She denies any lower extremity edema or sudden weight gain. She does report some mild upper respiratory symptoms such as nasal congestion and rhinorrhea. 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 Substance abuse Surgical History History of surgery on lower extremity [place] teeth removed History of fasciotomy Status post incision and drainage Family History Brother Substance use disorder Paternal Aunt Substance use disorder Maternal Aunt Substance use disorder Social History Household Members: Family Household Members Other:: Parents, siblings, son Housing: House Are you a primary direct care provider to a significant other at home: No Do you presently have visiting nurse or other home services: No Alcohol intake: former Patient Tobacco Use Status: Current everyday Tobacco user Tobacco use type: Cigarette Cigarettes Per Day: 4 Years Smoked: 20 e-Cigarette/Vaping Use: Never Used Substance Use Type: Marijuana service: No Current occupational status: unemployed Cognitive needs: No Hearing needs: No Vision needs: Yes Female Reproductive History Menstrual Age of Menarche: 11 Review of Systems Const All systems reviewed & are unremarkable except as noted in HPI and below Reports no additional complaints Eyes Reports no additional complaints ENT Reports no additional complaints Card Reports no additional complaints Resp Reports no additional complaints GI Reports no additional complaints Reports no additional complaints Musc Reports no additional complaints Skin/Breast Reports system reviewed and no additional complaints, except as documented Neuro Reports no additional complaints Psych Reports no additional complaints Endo Reports no additional complaints Inocente/Lymph Reports no additional complaints Aller/Immun Reports no additional complaints Physical Exam Exam Exam: Vital signs reviewed. Constitutional: Non-toxic appearing. No acute distress. Well-developed and well-nourished. HEENT: Normocephalic and atraumatic. Tympanic membranes without erythema, edema, or bulging bilaterally. External auditory canals without erythema or edema bilaterally. Moist mucous membranes. Mild posterior pharyngeal erythema without exudates or edema. Skin: Warm and dry. No rashes or lesions noted. Neck: Full and painless range of motion. No cervical lymphadenopathy. Cardio: Regular rate and rhythm. No murmurs, gallops, or rubs. No lower extremity edema. No JVD. Pulmonary: No respiratory distress. No accessory muscle usage. Scattered expiratory wheezing throughout both lungs. Gastrointestinal: Soft, nontender, and nondistended in all 4 quadrants. Musculoskeletal: Normal range of motion in joints throughout the body. No deformity or other signs of injury. Neuro: Alert and oriented x4. Cranial nerves 2-12 grossly intact. No focal deficits appreciated. Psych: Normal mood and affect. Vital Signs: Last Vital Signs Temp 98.3 F 08/30/25 10:16 Pulse 69 08/30/25 10:16 Resp 18 08/30/25 10:16 BP 110/82 08/30/25 10:16 Pulse Ox 96 08/30/25 10:16 Oxygen Delivery Method Room Air 08/30/25 10:16 BMI result Body Mass Index 31.0 Office Procedures Nebulizer Treatment Nebulizer Treatment [id number]-Vytkliols/MDI RX initial, or Nebulizer Subsequent Treatment Office Meds albuterol sulfate 2.5 mg/3 mL (0.083 %) solution for nebulization Performing Provider: CODI Woodward Performing Location[place] [facility] Administered by: CODI Woodward on 08/30/25 11:18 Dose Route Admin Location Dispensed Lot Number Expiration Date NDC Director General 2.5 mg inhalation 3 mL [id number] 09/12/25 13604-918-29 [facility] Assessment & Plan Assessment & Plan (1) Acute bronchitis: Code(s): J20.9 - Acute bronchitis, unspecified Qualifiers: Bronchitis organism: unspecified organism Qualified Code(s): J20.9 - Acute bronchitis, unspecified Plan 35-year-old female who presented to the walk-in clinic complaining of a cough an d shortness of breath x 3 days. On physical examination, she has scattered end- expiratory wheezing throughout both lungs. A chest x-ray was obtained, which was negative for acute pneumonic consolidation or infiltrate. History and physical most consistent with an acute bronchitis, likely secondary to viral respiratory tract infection. Patient was given a nebulizer treatment in office with improvement in her symptoms and lung sounds. She was sent home on p.o. prednisone 40 mg daily x5 days. She was instructed to follow-up here or proceed to the emergency room if she were to develop persistent or worsening symptoms such as worsening shortness of breath, fever/chills, or worsening sputum production/purulence. Patient and her mother verbalized understanding and they are in agreement with the plan. Orders: Orders SARS-CoV2/FLU/RSV Today J06.9 - Acute upper respiratory infection, unspecified AMB Nebulizer Treatment Today J20.9 - Acute bronchitis, unspecified XR chest 2V Today J20.9 - Acute bronchitis, unspecified Medications: New prednisone 40 mg (2 x 20 mg) PO DAILY 10 tabs 0RF Coding Level of Care Code Est Pt Level 3 (09674) Diagnoses Acute bronchitis, unspecified organism J20.9 Bronchitis organism: unspecified organism CPT Codes Nebulizer Treatment - Nebulizer Treatment, initial or subsequent: 34650- Nebulizer/MDI RX initial, or Nebulizer Subsequent Treatment ([id number])
--- OUTSIDE RECORDS SUMMARY | 2025-08-30 10:16 | XMS_ITS | Clinical Summary ---
Author Organization [facility] Address [address] [place] [address] Care Team Providers Care Analyst Food And Beverage Name Role Phone Vivian Skinner MD Primary [...] ual Screening 11/13/2024 COVID-19 Vaccine (1 - 2024-2 6 season) 2025 Influenza Vaccine (#1) 2025 RSV Vaccine (60+ years old a nd patients) (1 - 1-dose 75+ series) 2064 Pneumococcal Vaccine: Pediat soy (0-5 Years) and At-Risk Patients (6-50 Years) Aged Out No longer eligible b ased on patient's age to complete this topic Insurance [employer] Care Teams Analyst Food And Beverage Relationship Specialty Start Date End Date Vivian Skinner MD [address], [place] [phone] PCP - General Internal Medicine 08/13/24
== END 2025-08-30 11:36 | disposition home or self-care (01) ==
PROVIDERS: Visit Provider Physician Assistant Medical
DX: J20.9 Acute bronchitis, unspecified (principal)

== ENCOUNTER 2025-08-30 10:15 | Outpatient (REF) | payer OTHER, SELFPAY ==
--- NOTE | ~2025-08-30 | XR_ITS ---
CLINICAL HISTORY: J20.9 - Acute bronchitis, unspecified Chest Radiographs, 2 views Comparison: CR/ND/SR - XR CHEST 2 VIEWS - 10/14/23 20:56 EST CR/SR - XR CHEST 2 VIEWS - 08/18/23 08:01 EDT CR/ND/SR - XR CHEST 2 VIEWS - 08/17/23 17:22 EDT Findings: No cardiomegaly. Normal mediastinal contours. No pneumothorax. No opacity. No pleural effusion. Normal upper abdomen. No acute fracture. Impression: No acute findings. This document has been electronically signed by: Tori Dodge MD on 08/30/2025 13:16:18
[2025-08-30 15:48] LABS: Resp Syncy Virus RNA Qual PCR NEGATIVE (Negative); SARS COV2 PCR INHOUSE NEGATIVE (Negative)
== END 2025-08-30 10:16 | disposition home or self-care (01) ==
LOC: HO.HMGCX 10:15
PROVIDERS: Visit Provider Physician Assistant Medical
DX: J20.9 Acute bronchitis, unspecified (principal); J06.9 Acute upper respiratory infection, unspecified; F17.210 Nicotine dependence, cigarettes, uncomplicated
CPT/HCPCS: 71046; 87637; 94640; 99212

== ENCOUNTER → 2025-08-30 10:52 | Outpatient (BNV) | payer OTHER, SELFPAY | PROVIDERS: Visit Provider Radiology Diagnostic Radiology | DX: J20.9 Acute bronchitis, unspecified (principal) | CPT/HCPCS: 71046 ==

== ENCOUNTER 2025-09-24 08:23 | Outpatient (AMB) | payer OTHER, SELFPAY ==
--- OUTSIDE RECORDS SUMMARY | 2025-09-24 08:36 | XMS_ITS | Clinical Summary ---
Author Organization [facility] Address [address] [place] [address] Care Team Providers Care Manager Simulation Name Role Phone Vivian Skinner MD Primary [...] 6 season) 2025 Influenza Vaccine (#1) 2025 Pneumococcal Vaccine: Pediat soy (0-5 Years) and At-Risk Patients (6-50 Years) Aged Out No longer eligible b ased on patient's age to complete this topic Insurance [facility] MEDICAID Care Teams Manager Simulation Relationship Specialty Start Date End Date Vivian Skinner MD [address] [place] [address] PCP - General Internal Medicine 08/13/24
[2025-09-24 08:41] VITALS: BP 100/70; PULSE 82; RESP 16; TEMP 36.9; O2SAT 98; BMI 30.5
--- NOTE | 2025-09-24 08:41 | A.OFFPC_ITS ---
Vital Signs 09/24/25 08:41 Height 5 ft 3 in Weight 172 lb BMI 30.5 BP 100/70 Blood Pressure Location Rt brachial Position Sitting Respiration 16 Pulse 82 Pulse Source Pulse Oximeter Temp 98.5 F Temp Source Oral Pulse Oximetry (%) 98 Oxygen Delivery Method Room Air Intake Visit Reasons: Annual PE Intake Note: Pt is here today for PE: last mammogram 07/02/25, papsmear 05/29/23, colonoscopy 09/30/16 Finishing Room Supervisor Required: No Is last menstrual period known: Yes Last menstrual period: 09/04/25 Allergies No Known Allergies Allergy (Verified 09/24/25 09:25) Medication List - Last Reconciled 09/24/25 by Vivian Skinner MD acetaminophen 650 mg (2 x 325 mg) PO Q4-6H PRN 30 days albuterol sulfate 90 mcg/actuation (Ventolin HFA) 1 inh inhalation QID PRN docusate sodium 100 mg PO BID 30 days gabapentin 300 mg PO TID 30 days [Kneeling Scooter As directed] oxycodone 10 mg PO Q8H 7 days Tobacco use date assessed: 09/24/25 Dental Screening Dental Screen Date: 09/24/25 Did you have a dental visit in the last 12 months?: Yes Did you have a dental problem in the last 6 months where you did not have access to dental care?: No Was dental information given to patient?: Patient has dentist HPI Annual PE HPI Details 35-year-old lady with history of complex regional pain syndrome currently followed by pain management, history of trimalleolar fracture, currently seeing Orthopedics, vitamin-D deficiency, here today for her physical exam. [facility] Medical History (Updated 09/24/25 @ 09:37 by Vivian Skinner MD) Hx of abnormal cervical Pap smear Vitamin D deficiency Cervical cancer screening Reactive airway disease History of cocaine use 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 MDD (major depressive disorder) Opioid use disorder 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 Substance abuse Surgical History History of surgery on lower extremity Gardner teeth removed History of fasciotomy Status post incision and drainage Family History Brother Substance use disorder Paternal Aunt Substance use disorder Maternal Aunt Substance use disorder Social History Household Members: Family Household Members Other:: Parents, siblings, son Housing: House Are you a primary career consultant to a significant other at home: No Do you presently have visiting nurse or other home services: No Alcohol intake: former Patient Tobacco Use Status: Current everyday Tobacco user Tobacco use type: Cigarette Cigarettes Per Day: 4 Years Smoked: 20 e-Cigarette/Vaping Use: Never Used Substance Use Type: Marijuana service: No Current occupational status: unemployed Cognitive needs: No Hearing needs: No Vision needs: Yes Female Reproductive History Menstrual Age of Menarche: 11 Date of last menstrual period: 09/04/25 Questionnaire PHQ-9 Over the last 2 weeks, how often have you been bothered by any of the following problems? 1. Little interest or pleasure in doing things: several days 2. Feeling down, depressed, or hopeless: several days 3. Trouble falling or staying asleep, or sleeping too much: not at all 4. Feeling tired or having little energy: several days 5. Poor appetite or overeating: several days 6. Feeling bad about yourself - or that you are a failure or have let yourself or your family down: several days 7. Trouble concentrating on things, such as reading the newspaper or watching television: several days 8. Moving or speaking so slowly that other people could have noticed. Or the opposite - being so fidgety or restless that you have been moving around a lot more than usual: not at all 9. Thoughts that you would be better off or of hurting yourself in some way: not at all Total score: 6 Depression Screening Interpretation: Negative Depression Screening Done: Yes 96523 - PHQ-9 Billing: Yes Source: Developed by Drs. Alexandru Giordano, Edna Chaidez, Vito Harris and colleagues, with an educational elodia from [employer]. Thrive Questionnaire Date Thrive assessed: 08/14/24 I am a: Patient What is your living situation today?: I have a steady place to live Within the past 12 months, did the food you bought not last and you didn't have the money to get more?: Never true Within the past 12 months, did you worry whether your food would run out before you got money to buy more?: Never true Do you have trouble paying for medicines?: No Do you have trouble getting transportation to medical appointments?: No Do you have trouble paying your heating and electricity bill?: No Do you have trouble taking care of your child, family member or friend?: No Do you have trouble with day-to-day activities such as bathing, preparing meals, shopping, managing finances, etc.?: No Are you currently unemployed and looking for a job?: No Are you interested in more education?: No Please select the resources that you would like help with: None Currently or been in a relationship where the following occur: No concerns reported THRIVE Score: 0 AUDIT C Alcohol Use Questionnaire (AUDIT-C) 1. How often do you have a drink containing alcohol?: Never Total Score: 0 Score Reviewed/Action Taken: Yes ROSALES-7 AMB Questionnaire ROSALES-7 Date ROSALES - 7 assessed: 09/24/25 Feeling nervous, anxious, or on edge: 1 = Several days Not being able to stop or control worryin = Several days Worrying too much about different things: 1 = Several days Trouble relaxin = Several days Being so restless that it is hard to sit still: 1 = Several days Becoming easily annoyed or irritable: 1 = Several days Feeling afraid as if something awful might happen: 1 = Several days Total ROSALES-7 score (0-4 normal; 5-9 mild; 10-14 moderate; 15-21 severe): 7 Source: Developed by Drs. Alexandru Giordano, Edna Chaidez, Vito Harris and colleagues, with an educational elodia from [employer]. ROSALES-7 Assessment Billing ROSALES-7 Assessment Tool: ROSALES-7 Assessment 94005 Review of Systems Const All systems reviewed & are unremarkable except as noted in HPI and below Reports no additional complaints and Reports other Eyes Details: Has myopia Reports no additional complaints ENT Reports no additional complaints Card Reports no additional complaints and Denies dyspnea Resp Denies chest congestion, Denies cough, Denies dyspnea and Reports wheezing (Occasional episodes especially on exertion) GI Reports no additional complaints Reports no additional complaints Musc Reports as per HPI Skin/Breast Reports system reviewed and no additional complaints, except as documented Neuro Reports as per HPI Psych Reports no additional complaints Endo Reports no additional complaints Inocente/Lymph Reports no additional complaints Aller/Immun Reports no additional complaints and Reports wheezing (Occasional episodes especially on exertion) Physical exam (Primary Care) Vital Signs: Last Vital Signs Temp 98.5 F 09/24/25 08:41 Pulse 82 09/24/25 08:41 Resp 16 09/24/25 08:41 BP 100/70 09/24/25 08:41 Pulse Ox 98 09/24/25 08:41 Oxygen Delivery Method Room Air 09/24/25 08:41 BMI result Body Mass Index 30.5 Tobacco/Smoking Status: Tobacco use Status Tobacco use date assessed 09/24/25 09/24/25 08:56 Patient Tobacco Use Status Current everyday Tobacco 09/24/25 08:45 Tobacco use type Cigarette 09/24/25 08:45 e-Cigarette/Vaping Use Never Used 09/24/25 08:45 PHQ-9: PHQ-9 Score PHQ-9: Total score 6 09/24/25 09:11 Depression Screening Interpretation: Negative Thrive Assessment: Date of Thrive Assessment Date Thrive assessed 08/14/24 09/24/25 08:45 Currently or been in a relationship where the following occur: No concerns reported Const General: no acute distress and alert Nutritional Appearance: obese Orientation/consciousness: patient oriented x3 Limitations: physical limitations (Walks with a slight limp favoring left leg) HENMT Ears: external ears normal General nose exam: Normal external nose present Mouth: moist mucous membranes Eyes General: appearance normal, both eyes and all related structures Neck Neck: Yes full ROM, Yes no lymphadenopathy and Yes supple Resp Effort & Inspection: normal respiratory effort and able to speak in complete sentences Auscultation: clear to auscultation bilaterally Cardio Rate: regular rate Rhythm: regular rhythm Heart sounds: S1 normal heart sound present and S2 normal heart sound present GI Palpation (GI): Soft to palpation, nontender, no guarding and no masses Auscultation: normal bowel sounds General: Yes no CVA tenderness Back/Spine/Pelvis Back: no CVA tenderness Skin Other: Surgical scar on left upper and left forearm, left fingers in contracture deformity, with healing first-degree burn wounds on tips of fingers in left hand Full range of motion now in both shoulders Neuro General: patient oriented x3 Cranial nerves: Yes CN's II-XII intact bilaterally Cognition (Neuro): normal cognition Extrem Other: Decreased range of motion in left hand, unable to make fist with left hand, contracture deformity in fingers of left, scar noted on left ankle Psych Appearance: grossly normal and well kempt Mental Status: mental status grossly normal Speech and movement: Normal speech and movement present Affect: normal affect Office Procedures Flu Questionnaire Does the patient have a severe egg allergy?: No Does the patient have severe life threatening allergies?: No Does the patient have a fever or illness today?: No Has the patient ever had Guillain-[place] Syndrome?: No Has the patient ever had any past reaction to a flu shot?: No Immunizations Fluarix [id number] (PF) 45 mcg (15 mcg x 3)/0.5 mL IM syringe Performing Provider: Vivian Skinner MD Performing Location: [facility] Administered by: Izabela George CMA on 09/24/25 09:05 Dose Route Admin Location Dispensed Lot Number Expiration Date NDC Pin Ticket Machine Operator 0.5 mL IM Right Deltoid 0.5 mL [id number] 05/12/26 16190-049-13 [employer] VIS Given Date VIS Provided VIS Publication Date 09/24/25 Single Vaccine 24 Eligibility Eligibility Date Funding Source Not [facility] Eligible 09/24/25 Private Coding Level of Care Code Est Pt Prev Care 18-39y([id number]) Diagnoses Annual visit for general adult medical examination with abnormal findings Z00. Vitamin D deficiency E55.9 Closed trimalleolar fracture of left ankle, initial encounter S82.852A Encounter type: initial encounter Fracture type: closed CRPS (complex regional pain syndrome) type I G90.50 Mild intermittent reactive airway disease without complication J45.20 Asthma severity: mild Asthma persistence: intermittent Asthma complication type: uncomplicated Additional Codes ROSALES-7 Assessment Billing - ROSALES-7 Assessment Tool: ROSALES-7 Assessment 69431 ([id number]) PHQ-9 - 67831 - PHQ-9 Billing: Yes ([id number]) Assessment & Plan Assessment & Plan (1) Annual visit for general adult medical examination with abnormal findings: Code(s): Z00.01 - Encounter for general adult medical examination with abnormal findings Plan: Will check appropriate labs. Recommended dental visit every 6 months and regular eye exams, at least every 2 years. Take adequate calcium in diet and v itamin-D 3 at 2000 IU per cap once a day, in addition to weight-bearing exercises to help maintain good muscle tone and weight control. Instructed to do self-breast exam, and recommended to get yearly mammogram, starting at age 40. Advised to schedule an appointment for her routine Pap and pelvic exam with [facility]. Flu vaccine given today, up-to-date with Tdap does not want to get a COVID booster. (2) Vitamin D deficiency: Code(s): E55.9 - Vitamin D deficiency, unspecified Category: Medical Plan: Will check vitamin-D level (3) Trimalleolar fracture of left ankle: Code(s): S82.852A - Displaced trimalleolar fracture of left lower leg, initial encounter for closed fracture Category: Medical Qualifiers: Encounter type: initial encounter Fracture type: closed Qualified Code(s): S82.852A - Displaced trimalleolar fracture of left lower leg, initial encounter for closed fracture Plan: Currently followed by [facility] (4) CRPS (complex regional pain syndrome) type I: Code(s): G90.50 - Complex regional pain syndrome I, unspecified Category: Medical Plan: Awaiting appointment to get her spinal stimulator placed. Goes to [facility] pain clinic (5) Reactive airway disease: Code(s): J45.909 - Unspecified asthma, uncomplicated Category: Medical Qualifiers: Asthma severity: mild Asthma persistence: intermittent Asthma complication type: uncomplicated Qualified Code(s): J45.20 - Mild intermittent asthma, uncomplicated Plan: Smoking cessation strongly recommended. Patient not interested in using nicotine patch or Chantix. Prescription sent for albuterol inhaler to use as needed for episodes of bronchospasm and wheezing. Flu vaccine given today. Orders: Orders Lipid Panel Today E55.9 - Vitamin D deficiency, unspecified, I51.81 - Takotsubo syndrome, Z13.1 - Encounter for screening for diabetes mellitus, Z13.220 - Encounter for screening for lipoid disorders Vitamin D 25-OH Total Today E55.9 - Vitamin D deficiency, unspecified, I51.81 - Takotsubo syndrome, Z13.1 - Encounter for screening for diabetes mellitus, Z13.220 - Encounter for screening for lipoid disorders Glucose Fasting Today E55.9 - Vitamin D deficiency, unspecified, I51.81 - Takotsubo syndrome, Z13.1 - Encounter for screening for diabetes mellitus, Z13.220 - Encounter for screening for lipoid disorders Alanine Aminotransferase Today E55.9 - Vitamin D deficiency, unspecified, I51.81 - Takotsubo syndrome, Z13.1 - Encounter for screening for diabetes mellitus, Z13.220 - Encounter for screening for lipoid disorders Aspartate Amino Transferase Today E55.9 - Vitamin D deficiency, unspecified, I51.81 - Takotsubo syndrome, Z13.1 - Encounter for screening for diabetes mellitus, Z13.220 - Encounter for screening for lipoid disorders Influenza [id number] Immunization Today Z23 - Encounter for immunization Medications: Refilled albuterol sulfate 90 mcg/actuation (Ventolin HFA) 1 inh inhalation QID PRN 6.7 grams 4RF shortness of breath or wheezing
== END 2025-09-24 09:37 | disposition home or self-care (01) ==
LOC: HO.HMCC 08:24
PROVIDERS: PCP Internal Medicine; Visit Provider Internal Medicine
DX: Z23 Encounter for immunization (principal)

== ENCOUNTER → 2025-09-24 08:23 | Outpatient (BNVA) | payer OTHER, SELFPAY | PROVIDERS: PCP Internal Medicine; Visit Provider Internal Medicine | DX: Z00.01 Encounter for general adult medical examination with abnormal findings (principal); S82.852D Displaced trimalleolar fracture of left lower leg, subsequent encounter for closed fracture with routine healing; E55.9 Vitamin D deficiency, unspecified; G90.50 Complex regional pain syndrome I, unspecified; J45.20 Mild intermittent asthma, uncomplicated; I51.81 Takotsubo syndrome; F17.210 Nicotine dependence, cigarettes, uncomplicated; X58.XXXD Exposure to other specified factors, subsequent encounter; Z23 Encounter for immunization | CPT/HCPCS: 90471; 90656; 96127; 99395 ==